=== PATIENT | female | born 1955 | race Caucasian/White ===

== ENCOUNTER 2019-06-29 07:57 | Outpatient (CLI) | payer MEDICARE, SELFPAY ==
--- NOTE | ~2019-06-29 | MR_ITS ---
EXAMINATION: MR lumbar spine wo con DATE: 06/29/2019 08:32 INDICATION: Low back pain. TECHNIQUE: Magnetic resonance imaging (MRI) of the lumbar spine was performed without intravenous con trast. Sequences included sagittal T2-weighted FSE, sagittal T2-weighted FS FSE, sagittal T1-weighted FSE, and axial T2-weighted FSE. COMPARISON: Lumbar spine radiographs 10/02/2017 FINDINGS: There is 11 degrees dextroscoliosis of lumbar spine. There is 2 mm anterolisthesis of L1 on L2 and 3 mm retrolisthesis of L3 on L4. Vertebral body heights are normal. There is moderately decre ased disc height at L1-L2, L2-L3, L3-L4, and L5-S1 and severely decreased disc height at L4-L5. The d istal spinal cord signal intensity is normal. The conus medullaris is at T12-L1. The following disc l evels are specifically discussed: L1-L2: The disc is bulging. There is severe bilateral facet joint osteoarthritis. There is mild bilat eral neural foraminal stenosis. There is mild central canal stenosis. L2-L3: The disc is bulging. There is severe bilateral facet joint osteoarthritis. There is mild bilat eral neural foraminal stenosis. There is mild central canal stenosis. L3-L4: The disc is bulging. There is severe bilateral facet joint osteoarthritis. There is mild right and moderate left neural foraminal stenosis. There is mild central canal stenosis. L4-L5: The disc is bulging. There is severe bilateral facet joint osteoarthritis. There is moderate b ilateral neural foraminal stenosis. There is mild central canal stenosis. L5-S1: The disc is bulging and has an annular fissure. There is severe bilateral facet joint osteoart hritis. There is mild bilateral neural foraminal stenosis. There is mild central canal stenosis. IMPRESSION: 1. Severe lumbar spondylosis. 2. Lumbar dextroscoliosis. Reviewed, dictated and finalized at location A. Y LAB TECHNICIAN
== END 2019-06-29 07:58 ==
LOC: MICIMG 07:57
PROVIDERS: Visit Provider Nurse Practitioner Family
DX: M47.896 Other spondylosis, lumbar region (principal)
CPT/HCPCS: 72148

== ENCOUNTER 2019-09-24 14:19 | Outpatient (CLI) | payer MEDICARE, SELFPAY ==
--- NOTE | ~2019-09-24 | XR_ITS ---
EXAMINATION: XR hip RT min 2V DATE: 09/24/2019 15:03 INDICATION: Right hip pain TECHNIQUE: Two views of the right hip were obtained. COMPARISON: None. FINDINGS: Bone alignment is normal. There is moderate hip osteoarthritis. No fracture is identified. The soft tissues are unremarkable. IMPRESSION: 1. Moderate osteoarthritis. Reviewed, dictated and finalized at location A. IMPRESSION: 1. Moderate osteoarthritis.
== END 2019-09-24 14:20 | disposition home or self-care (01) ==
LOC: ANHIMG 14:33
PROVIDERS: Visit Provider Nurse Practitioner Family
DX: M25.551 Pain in right hip (principal); M16.11 Unilateral primary osteoarthritis, right hip
CPT/HCPCS: 73502

== ENCOUNTER 2019-09-25 07:13 | Outpatient (CLI) | payer MEDICARE, SELFPAY ==
--- NOTE | ~2019-09-25 | XR_ITS ---
XR hip LT min 2V DATE: 09/25/2019 07:36 INDICATION: Left hip pain. No injury. TECHNIQUE: AP and lateral views COMPARISON: None FINDINGS: No fracture or dislocation, avascular necrosis or bone destruction. There is slight spurri ng of the left femoral head. The pubic symphysis and sacroiliac joints appear unremarkable. IMPRESSION: Mild osteoarthritis of left hip Reviewed, dictated and finalized at location A.
== END 2019-09-25 07:14 | disposition home or self-care (01) ==
PROVIDERS: PCP Internal Medicine; Visit Provider Nurse Practitioner Family
DX: M16.12 Unilateral primary osteoarthritis, left hip (principal)
CPT/HCPCS: 73502

== ENCOUNTER 2019-11-05 08:24 | Outpatient (CLI) | payer MEDICARE, SELFPAY ==
[2019-11-05 08:56] LABS: Blood Urea Nitrogen 9 mg/dL (7-17); Calcium 9.7 mg/dL (8.4-10.2); Carbon Dioxide 30 mmol/L (22-30); Chloride 104 mmol/L (98-107); Estimated Glomerular Filt Rate > 60; Glucose 139 mg/dL (65-105); Potassium 3.8 mmol/L (3.4-5.0); Sodium 137 mmol/L (137-145)
== END 2019-11-05 08:25 | disposition home or self-care (01) ==
PROVIDERS: Anesthesiology; PCP Internal Medicine; Visit Provider Surgery Plastic and Reconstructive Surgery
DX: I10 Essential (primary) hypertension (principal)
CPT/HCPCS: 36415; 80048

== ENCOUNTER 2019-11-14 01:38 | Outpatient (CLI) | payer MEDICARE, SELFPAY ==
[2019-11-14 18:09] LABS: SARS-CoV-2 RNA PCR Negative
== END 2019-11-14 01:39 | disposition home or self-care (01) ==
LOC: ANHCOVIDDT 01:38
PROVIDERS: Anesthesiology; PCP Internal Medicine; Visit Provider Surgery Plastic and Reconstructive Surgery
DX: Z01.812 Encounter for preprocedural laboratory examination (principal); Z11.59 Encounter for screening for other viral diseases
CPT/HCPCS: 87635; C9803; U0003

== ENCOUNTER 2019-11-18 15:37 | Inpatient (IN) | payer MEDICARE, SELFPAY ==
[2019-11-03 12:00] VITALS: BMI 37.8
[2019-11-17] VITALS (26 sets, daily range): BP systolic 49–138; BP diastolic 26–96; PULSE 62–97; RESP 10–18; TEMP 36.1–37.1; O2SAT 90–99
--- NOTE | 2019-11-17 06:57 | WPDHPUPDATE1 ---
History and Physical Update Update Date/Time: 11/17/19 06:57 History and Physical has been reviewed, including an updated exam of the patient. She admits that she has had some nicotine and will likely be positive on the test. Again today we spent extensive time discussing the risks of nicotine. This can lead to infections, skin loss, open wounds, need for months and longer of dressing changes and even skin grafts. I was very upfront and honest about this so she was very well informed. She would like to proceed. She says this is functional not cosmetic and she is willing to accept this risk. She understands this procedure even with optimal outcome will not correct all her symptoms. Further this will only address the panniculus which was drawn out and identified for her to make sure it was very clear what we are and are not going to accomplish. Risks, benefits, and alternatives have been discussed and questions answered. Patient agrees to proceed with procedure.
[2019-11-17] MEDS: LACTATED RINGERS 1,000 ML 30 ML IV CONT ×2 (07:05→10:48)
--- NOTE | 2019-11-17 07:29 | WPDANESEPPF ---
Anes - Initial Pre Proc Eval Procedure: Operation Date: 11/17/19 08:30 Proposed Procedures p Panniculectomy - Lucius Garrison MD Date/Time: 11/17/19 07:29 Surgeon: Lucius Garrison MD Pre Op Diagnosis: Panniculitis Patient Data Age: 64 Gender: F Height: 5 ft 8 in Weight: 109.3 kg Allergies Allergy/AdvReac Type Severity Reaction Status Date / Time Penicillins Allergy Mild Swelling Verified 11/17/19 07:09 of Lip/Tongue/Throat metformin AdvReac Severe Nausea and Verified 11/17/19 07:09 Vomiting Home Medications Medication Instructions Recorded Confirmed Type baclofen 10 mg PO TID PRN 11/03/19 11/03/19 History bupropion HCl 100 mg PO BID 11/03/19 11/03/19 History calcitriol 1 mcg PO DAILY 11/03/19 11/03/19 History clonidine HCl 0.1 mg PO DAILY PRN 11/03/19 11/03/19 History duloxetine 120 mg PO DAILY 11/03/19 11/03/19 History ergocalciferol (vitamin D2) 1,250 mcg PO WEEKLY 11/03/19 11/03/19 History [Vitamin D2] fenofibrate nanocrystallized 48 mg PO DAILY 11/03/19 11/03/19 History fluticasone propionate 1 spray INTRANASAL PRN PRN 11/03/19 11/03/19 History folic acid 1 mg PO DAILY 11/03/19 11/03/19 History gabapentin 600 mg PO TID 11/03/19 11/03/19 History hydrocodone-acetaminophen 1 ml PO DAILY PRN 11/03/19 11/03/19 History ixekizumab [Taltz Autoinjector] 80 mg SUBCUT MONTHLY 11/03/19 11/03/19 History lisinopril-hydrochlorothiazide 1 tablet PO DAILY 11/03/19 11/03/19 History lovastatin 20 mg PO HS 11/03/19 11/03/19 History methotrexate sodium 20 mg PO WEEKLY 11/03/19 11/03/19 History mirabegron [Myrbetriq] 50 mg PO DAILY 11/03/19 11/03/19 History nystatin [Nystop] 1 applic TOPICAL BID PRN 11/03/19 11/03/19 History omeprazole 20 mg PO DAILY 11/03/19 11/03/19 History oxycodone myristate [Xtampza ER] 18 mg PO BID 11/03/19 11/03/19 History prednisone 5 mg PO DAILY 11/03/19 11/03/19 History trazodone 200 mg PO DAILY 11/03/19 11/03/19 History ondansetron HCl 4 mg tablet 4 mg PO Q6H PRN #30 tablet 11/04/19 Rx oxycodone-acetaminophen 5 mg-325 1 tablet PO Q6H PRN #15 tablet 11/04/19 11/04/19 Rx mg tablet Laboratory Tests 11/17/19 06:47 Cotinine Pending Patient hx anesthesia problems: none Family hx anesthesia problems: none PMFSH Past Medical History Medical History (Updated 11/17/19 @ 07:29 by Tanner Martines MD) Anxiety COPD (chronic obstructive pulmonary disease) Depression GERD (gastroesophageal reflux disease) Hyperlipidemia Hypertension ERROL (obstructive sleep apnea) Social History Social History Smoking packs per day: 1 Smoking cigarettes per day: 20.0 Years smoked: 31 Smoking pack-years: 31.00 Smoking status: Former smoker Tobacco type: cigarettes Second hand tobacco smoke exposure: No Substance use type: does not use Last use: 2018 Living arrangements: alone Gender identity (if verbalized by the patient): Female Spiritual care concerns: No Anes - Eval Final PreProcedure Day of Procedure 11/17/19 07:29 Patient weight: obese Heart: regular rate and rhythm Lungs: clear to auscultation Airway: Mallampati scale class III Neurological: alert and oriented Last oral intake: >/= 8 hours ASA classification: III Emergent: no Anesthetic plan: proceed Anesthesia type and monitoring: general LMA and standard monitoring Informed Consent: The patient's anesthetic plan and its attendant risks and benefits were discussed with the patient/family/POA. Questions were solicited and answers provided to the satisfaction of the patient/family/POA.
[2019-11-17 07:42] LABS: Urine Cotinine POSITIVE
[2019-11-17] MEDS: CLINDAMYCIN 900 MG/NS 50 ML 900 MG/50 ML PIGGYBACK 50 MG IVPB (08:36)
--- NOTE | 2019-11-17 10:52 | P.OP_ITS ---
Procedure Note - Detailed Date of procedure: 11/17/19 Pre-op diagnosis: Panniculitis Post-op diagnosis: same Description of procedure: Patient was marked in the preoperative holding area with her verification. She admitted she has had some nicotine exposure. We had a lengthy open-ended conversation making sure she was very realistic about the risks involved as well as expectations. These were outlined in great detail making sure she made a well-informed decision. She is willing to accept the risks of nicotine (after outlining extensivly). All questions answered and consent obtained. She was taken to the operating room placed supine on operating room table. Anesthesia provided by anesthesiology. A Craft catheter was started. Prepped and draped in a standard sterile fashion. Surgical time-out was taken. I made stab incisions on the abdomen after doing a thorough abdominal examination. I tumesced with approximately 1.2 L of a tumescent solution. Ten blade used to make the lower incision followed by upper. I continued a V excision fashion until the fascia was identified. There was no undermining. At the central just above the suprapubic region I did see some tape likely from the bladder suspension and this was left in place. I copiously irrigated with saline solution and verified strict hemostasis. Again there was no undermining of flaps at all. I closed in many layers to obliterate all space using a 2-[address] did [address] 15 Maury drains bilatera l which were sutured into place with 3-0 nylon through the lateral aspect of the incision. It continue to close with 2-0 PDS followed by running 3-0 strata fix and alex. Dressings were placed. Patient was woken taken the PACU without difficulty. All instrument sponge counts were correct at the end of the case. Anesthesia: GLMA Surgeon: Lucius Garrison MD Estimated blood loss (mL): 50 Drains: Yes (Bilateral 15 maury) Packing: No Pathology: none sent Complications: No immediate complications Condition: stable Disposition: PACU
[2019-11-17] MEDS: LACTATED RINGERS 1,000 ML 125 ML IV CONT ×2 (12:33→19:30)
[2019-11-17] MEDS: MORPHINE SULFATE 2 MG/ML INJ IV PUSH ×3 (12:35→19:27)
[2019-11-17] MEDS: GABAPENTIN 300 MG CAPSULE 600 MG PO ×2 (14:53→22:21)
--- NOTE | 2019-11-17 15:24 | OBPPTRN ---
Patient transferred to room #285 via bed. Oriented to unit, room, information board, admission packet and security measures. Patient verbalizes understanding.
[2019-11-17] MEDS: ONDANSETRON INJ 4 MG/2 ML VIAL IV PUSH (16:17)
[2019-11-17] MEDS: oxyCODONE/ACETAMINOPHEN 5-325 MG TABLET 1 TABLET PO (20:36)
[2019-11-17] MEDS: DOCUSATE SODIUM 100 MG CAPSULE PO (22:21)
[2019-11-17] MEDS: BACLOFEN 10 MG TABLET PO (22:21)
--- NOTE | 2019-11-17 23:40 | ECG_ITS ---
Measurements Intervals [place] Rate: 67 P: 87 [place]: 137 QRS: 0 QRSD: 102 T: 29 QT: 402 QTc: 427 Interpretive Statements SINUS RHYTHM ST ELEVATION IN DIFFUSE LEADS- PROBABLY EARLY REPOLARIZATION BASELINE WANDER- I, II, III, V1-V2 BORDERLINE ECG Electronically Signed On 11-18-2019 6:48:33 CDT by Sancho Sarmiento D.O.
[2019-11-17 23:45] LABS: Glucose Point of Care 184 (65-105)
[2019-11-18] VITALS (21 sets, daily range): BP systolic 66–116; BP diastolic 30–54; PULSE 20–81; RESP 16–20; TEMP 36.2–37.4; O2SAT 90–100
--- NOTE | ~2019-11-18 | US_ITS ---
US venous doppler LE RT DATE: 11/19/2019 09:41 INDICATION: Right calf tenderness, positive Homans sign postoperatively TECHNIQUE: Real-time and color flow imaging and Doppler analysis of the veins of the right lower extr emity COMPARISON: None FINDINGS: The greater saphenous vein is patent. There is spontaneous and phasic flow and normal augmentation and color flow signal and normal josesito claudia of the deep veins of the right lower extremity. IMPRESSION: Negative examination; no evidence of deep venous thrombosis. Reviewed, dictated and finalized at [facility] Reviewed, dictated and finalized at [facility].
[2019-11-18 00:06] LABS: Basophils Absolute Auto 0.1 K/mm3 (0.0-0.1); Basophils Percent Auto 0.3 % (0.2-1.2); Hematocrit 29.6 % (37.0-47.0); Hemoglobin 9.7 g/dL (12.0-15.0); Immature Granulocyte Absolute 0.09 K/mm3 (0.00-0.031); Immature Granulocyte Percent A 0.5 % (0-0.5); Lymphocytes Absolute Auto 1.93 K/mm3 (0.9-3.2); Lymphocytes Percent Auto 10.3 % (18.3-44.2); Mean Corpuscular HGB Conc 32.8 g/dl (32-36); Mean Corpuscular Hemoglobin 31.4 pg (26-34); Mean Corpuscular Volume 95.8 fl (80-100); Mean Platelet Volume 11.9 fl (7.4-10.4); Monocytes Absolute Auto 1.6 K/mm3 (0.1-0.6); Monocytes Percent Auto 8.5 % (2.6-8.5); Neutrophils Percent Auto 80.4 % (45.5-73.1); Platelet Count Result 177 k/mm3 (150-375); Red Blood Count 3.09 M/mm3 (4.2-5.4); Red Cell Distribution Width 14.6 % (11.5-14.5); White Blood Count 18.7 K/mm3 (4.5-10.0)
--- NOTE | 2019-11-18 00:09 | WPDPN ---
Progress Note: A&P Assessment and Plan (1) Panniculitis: Code(s): M79.3 - Panniculitis, unspecified Status: Acute Assessment and Plan: Her mental status is very good and she is completely asymptomatic. 1 litter bolus complete, will continue fluids. Hemoglobin appears to be stable. EKG normal. I see no evidence of active bleeding or hematoma. No evidence of cardiovascular event. Will continue to monitor closely. Hospitalist is consulted and has already seen, appreciate assistance. We will follow closely. (2) History of tobacco use: Code(s): Z87.891 - Personal history of nicotine dependence Status: Acute Assessment and Plan: We continue to discuss nicotine cessation. (3) History of gastric bypass: Code(s): Z98.84 - Bariatric surgery status Status: Acute (4) Umbilical hernia: Code(s): K42.9 - Umbilical hernia without obstruction or gangrene Status: Acute Assessment and Plan: Identified on CT scan. Asymptomatic. (5) History of bilateral breast reduction surgery: Code(s): Z98.890 - Other specified postprocedural states Status: Acute (6) Type 2 diabetes mellitus: Code(s): E11.9 - Type 2 diabetes mellitus without complications Status: Acute Assessment and Plan: She does have a history of a nuclear stress test on 06/19/2019. Normal. EF 66%. (7) Psoriasis: Code(s): L40.9 - Psoriasis, unspecified Status: Acute (8) Thrombocytopenia: Code(s): D69.6 - Thrombocytopenia, unspecified Status: Acute Assessment and Plan: She has a history of thrombocytopenia. (9) Elevated LFTs: Code(s): R79.89 - Other specified abnormal findings of blood chemistry Status: Acute Assessment and Plan: History of elevated LFTs. (10) History of bladder repair surgery: Code(s): Z98.890 - Other specified postprocedural states Status: Acute (11) ERROL (obstructive sleep apnea): Code(s): G47.33 - Obstructive sleep apnea (adult) (pediatric) Status: Acute (12) Depression: Code(s): F32.9 - Major depressive disorder, single episode, unspecified Status: Acute (13) GERD (gastroesophageal reflux disease): Code(s): K21.9 - Gastro-esophageal reflux disease without esophagitis Status: Acute (14) COPD (chronic obstructive pulmonary disease): Code(s): J44.9 - Chronic obstructive pulmonary disease, unspecified Status: Acute (15) Anxiety: Code(s): F41.9 - Anxiety disorder, unspecified Status: Acute (16) Hypertension: Code(s): I10 - Essential (primary) hypertension Status: Acute (17) Hyperlipidemia: Code(s): E78.5 - Hyperlipidemia, unspecified Status: Acute Review of Systems Review of Systems: All systems reviewed & are unremarkable except as noted in HPI and below Exam Narrative: Exam Narrative: Abdomen soft. There is no signs of infection. No hematoma. No seroma. Drains are still red although low output. Urine appears slightly dark. Const: General: no acute distress Other: Response to questions well. Has no complaints other than some right-sided incisional mild discomfort. Eyes: General: appearance normal, both eyes and all related structures Resp: Effort & Inspection: normal respiratory effort Cardio: Rate: regular rate Skin: General skin exam: normal color Neuro: Cognition (Neuro): normal cognition Other: Alert and oriented. Answering questions appropriately. Extrem: Other: No calf tenderness. Negative Homans. Psych: Mental Status: mental status grossly normal Objective Data Vital Signs Vital Signs: Vital Signs - 24 hr 11/17/19 10:50 11/17/19 11:05 11/17/19 11:20 Temperature 37.1 C Pulse Rate 76 76 80 Respiratory Rate 10 L 16 16 Blood Pressure 129/68 138/76 110/54 L Pulse Oximetry 94 95 94 11/17/19 11:35 11/17/19 12:15 11/17/19 12:30 Temperature 36.8 C
[2019-11-18 00:16] LABS: Alanine Aminotransferase 15 U/L (4-35); Albumin Level 2.6 g/dL (3.5-5.1); Alkaline Phosphatase 67 U/L (38-126); Aspartate Amino Transferase 17 U/L (14-36); Bilirubin,Total 0.5 mg/dL (0.2-1.3); Blood Urea Nitrogen 17 mg/dL (7-17); Calcium 9.2 mg/dL (8.4-10.2); Carbon Dioxide 28 mmol/L (22-30); Chloride 101 mmol/L (98-107); Estimated CRCL calculation 56 ml/min; Estimated Glomerular Filt Rate 46; Glucose 186 mg/dL (65-105); Potassium 4.3 mmol/L (3.4-5.0); Sodium 133 mmol/L (137-145)
--- NOTE | 2019-11-18 01:01 | PM.IMCN ---
Assessment and Plan Assessment and plan (1) Hypotension: Qualifiers: Hypotension type: hypotension due to hypovolemia Qualified Code(s): I95.89 - Other hypotension; E86.1 - Hypovolemia Code(s): I95.9 - Hypotension, unspecified Status: Acute Assessment and Plan: Postprocedural and or hypovolemic in nature. Patient is now on her 2nd L of normal saline bolus. Her blood pressures have improved to 104/45. I agree with continuing maintenance IV fluids. Will hold narcotics if patient's blood pressures are below 95 systolic Would recommend holding patient's home lisinopril and hydrochlorothiazide especially in the setting of acute renal injury. (2) Acute renal injury due to hypovolemia: Code(s): N17.9 - Acute kidney failure, unspecified; E86.1 - Hypovolemia Status: Acute Assessment and Plan: Will continue monitor urine output closely. Repeat BMP in a.m.. Recommend holding lisinopril and hydrochlorothiazide. (3) Type 2 diabetes mellitus: Qualifiers: Diabetes mellitus nursing home insulin use: without nursing home use Diabetes mellitus complication status: with hyperglycemia Qualified Code(s): E11.65 - Type 2 diabetes mellitus with hyperglycemia Code(s): E11.9 - Type 2 diabetes mellitus without complications Status: Acute Assessment and Plan: Moderate sliding scale insulin with Accu-Cheks a.c. HS and hypoglycemia protocol have been ordered. (4) ERROL (obstructive sleep apnea): Code(s): G47.33 - Obstructive sleep apnea (adult) (pediatric) Status: Acute Assessment and Plan: Resume CPAP once the patient'sblood pressures have stabilized. (5) Leukocytosis: Qualifiers: Leukocytosis type: leukemoid reaction Qualified Code(s): D72.823 - Leukemoid reaction Code(s): D72.829 - Elevated white blood cell count, unspecified Status: Acute Assessment and Plan: Likely due to stress reaction/leukemoid reaction from acute postoperative and hypovolemic stresses. Acute infectious process less likely. Repeat CBC in a.m.. Additional Plan 50 minutes spent in critical care activities. This case had a high probability of a clinically significant, sudden, or life threatening deterioration of this patient's condition which required my full and direct attention, intervention and personal management. HPI Data of Consult Consult date: 11/18/19 Requesting Physician: Lucius Garrison MD Primary Care Provider: Jacki Cabrera, Consult Narrative Narrative: Date and time of patient contact: 11/17/2019 at 11:30 p.m. Karolina Ramos is a 64 year old female with a past medical history of type 2 diabetes mellitus, hypertension, chronic pain morbid obesity status post gastric bypass surgery in 120 lb weight loss who was brought in for an elective panniculectomy. Patient underwent surgical procedure on 11/17/2019. Postoperatively the patient has been having intermittent hypotension. Just before my evaluation nursing staff called and requested consult as the patient's blood pressures had dropped to the mid 40s systolic. However the patient was still awake and conversant. The patient was not on IV fluids. Patient had a relatively low postop urine output. She had not been having any nausea or vomiting and had been eating without difficulty. Around 9:00 p.m. she received oxycodone and morphine when her blood pressures had improved back up to 90 systolic. With her next set of vitals the patient's systolic blood pressures were 65 systolic and 49 systolic. She was not tachycardic. She denies shortness of breath. She does have history of obstructive sleep apnea but only uses her CPAP intermittently. She denies any chest pain, palpitations or shortness of breath. She has not been having any lower extremity swelling. Patient was reporting moderate to severe pain in her abdomen and was requesting pain medications. Th
[2019-11-18 01:05] LABS: Lactic Acid Reflex 2.4 mmol/L (0.7-2.1)
--- NOTE | 2019-11-18 01:30 | PC.NURSE ---
This patient, Karolina Ramos, was received from [ second floor ob] on 11/18/19 at 0015. Personal belongings list checked and signed. Patient/family oriented to unit policies and routines
--- NOTE | 2019-11-18 01:47 | PC.NURSE ---
11/17/192239 Exchange called 2299 Spoke with Bhavani, Dr Childress's WO[employer] GRADER, relayed Blood pressures and patient status. She states she will call Dr. Childress [address] Childress, relayed information. Order recieved to consult hospitalist due to pt's underlying medical conditions. [address] Najera, internalist, received order for IV bolus, CBC, BMP, 12 lead EKG 2335 Rapid response called overhead IV open,O2 via mask @ 10L 2337 Rapid response team in room. Spoke with Dr. Childress on cell, informed of pt condition and rapid response called. 2340 Dr. Najera in room. Blood sugar 154. 2348 Dr. Childress in room 2352 Dr. Najera left room 11/18/19 0009 Pt transferred via bed to room 205. Report called to Taylor Bellamy RN.
[2019-11-18] MEDS: LACTATED RINGERS 1,000 ML 125 ML IV CONT ×3 (01:51→17:42)
[2019-11-18] MEDS: oxyCODONE/ACETAMINOPHEN 5-325 MG TABLET 1 TABLET PO ×4 (01:52→23:46)
[2019-11-18 03:29] LABS: Reflex Lactic Acid Yes or No Add Lactic
[2019-11-18] MEDS: GABAPENTIN 300 MG CAPSULE 600 MG PO ×3 (05:04→20:56)
[2019-11-18 06:59] LABS: Hematocrit 26.7 % (37.0-47.0); Hemoglobin 8.7 g/dL (12.0-15.0); Mean Corpuscular HGB Conc 32.6 g/dl (32-36); Mean Corpuscular Hemoglobin 31.6 pg (26-34); Mean Corpuscular Volume 97.1 fl (80-100); Mean Platelet Volume 12.2 fl (7.4-10.4); Platelet Count Result 136 k/mm3 (150-375); Red Blood Count 2.75 M/mm3 (4.2-5.4); Red Cell Distribution Width 14.7 % (11.5-14.5); White Blood Count 10.6 K/mm3 (4.5-10.0)
[2019-11-18 07:08] LABS: Blood Urea Nitrogen 19 mg/dL (7-17); Carbon Dioxide 27 mmol/L (22-30); Chloride 101 mmol/L (98-107); Estimated CRCL calculation 67 ml/min; Estimated Glomerular Filt Rate 56; Glucose 106 mg/dL (65-105); Lactic Acid 1.5 mmol/L (0.7-2.1); Potassium 3.9 mmol/L (3.4-5.0); Sodium 132 mmol/L (137-145)
--- NOTE | 2019-11-18 07:18 | WPDPN ---
Progress Note: A&P Assessment and Plan (1) Panniculitis: Code(s): M79.3 - Panniculitis, unspecified Status: Acute Assessment and Plan: Doing well this morning. If she continues to do well will plan for discharge home later today or tomorrow once: Ambulating Pain controlled Blood pressure stable Tolerating p.o. Hospitalist agrees Appreciate hospitalist assistance. (2) History of tobacco use: Code(s): Z87.891 - Personal history of nicotine dependence Status: Inactive Assessment and Plan: We continue to discuss nicotine cessation. (3) History of gastric bypass: Code(s): Z98.84 - Bariatric surgery status Status: Acute (4) Umbilical hernia: Code(s): K42.9 - Umbilical hernia without obstruction or gangrene Status: Acute Assessment and Plan: Identified on CT scan. Asymptomatic. (5) History of bilateral breast reduction surgery: Code(s): Z98.890 - Other specified postprocedural states Status: Inactive (6) Type 2 diabetes mellitus: Qualifiers: Diabetes mellitus retirement insulin use: without retirement use Diabetes mellitus complication status: with hyperglycemia Qualified Code(s): E11.65 - Type 2 diabetes mellitus with hyperglycemia Code(s): E11.9 - Type 2 diabetes mellitus without complications Status: Acute Assessment and Plan: She does have a history of a nuclear stress test on 06/19/2019. Normal. EF 66%. (7) Psoriasis: Code(s): L40.9 - Psoriasis, unspecified Status: Inactive (8) Thrombocytopenia: Code(s): D69.6 - Thrombocytopenia, unspecified Status: Acute Assessment and Plan: She has a history of thrombocytopenia. (9) Elevated LFTs: Code(s): R79.89 - Other specified abnormal findings of blood chemistry Status: Acute Assessment and Plan: History of elevated LFTs. (10) History of bladder repair surgery: Code(s): Z98.890 - Other specified postprocedural states Status: Inactive (11) ERROL (obstructive sleep apnea): Code(s): G47.33 - Obstructive sleep apnea (adult) (pediatric) Status: Acute (12) Depression: Code(s): F32.9 - Major depressive disorder, single episode, unspecified Status: Inactive (13) GERD (gastroesophageal reflux disease): Code(s): K21.9 - Gastro-esophageal reflux disease without esophagitis Status: Acute (14) COPD (chronic obstructive pulmonary disease): Code(s): J44.9 - Chronic obstructive pulmonary disease, unspecified Status: Acute (15) Anxiety: Code(s): F41.9 - Anxiety disorder, unspecified Status: Acute (16) Hypertension: Code(s): I10 - Essential (primary) hypertension Status: Acute (17) Hyperlipidemia: Code(s): E78.5 - Hyperlipidemia, unspecified Status: Acute Review of Systems Review of Systems: All systems reviewed & are unremarkable except as noted in HPI and below Exam Narrative: Exam Narrative: Abdomen soft. There is no signs of infection. No hematoma. No seroma. Drains are becoming serosanguineous. Urine is becoming more clear. Const: General: comfortable, no acute distress, alert and awake; No acute distress Orientation/consciousness: oriented to person HENMT: Head: normal to inspection Ears: external ears normal General nose exam: Normal external nose present Face and sinus: normal facial exam Eyes: General: appearance normal, both eyes and all related structures Periorbital: periorbital findings normal Eyelids: eyelids normal Conjunctivae: conjunctivae normal Neck: Neck: normal visual inspection Chest: Chest palpation & inspection: normal inspection of the chest Resp: Effort & Inspection: normal respiratory effort and able to speak in complete sentences GI: Inspection: normal to inspection Neuro: General: oriented to person Psych: Appearance: grossly normal Mental Status: menta
--- NOTE | 2019-11-18 07:54 | WPDANESPN ---
Anes - Prog Note Post-Op Date/Time: 11/18/19 07:54 Cardiovascular status: normal Respiratory status: normal Airway patency: baseline Mental status: baseline Post-Op hydration status: normal Vital Signs: Last Vital Signs Temp 36.8 C 11/18/19 04:00 Pulse 67 11/18/19 05:36 Resp 20 11/18/19 04:00 BP 97/48 L 11/18/19 04:00 Pulse Ox 100 11/18/19 04:00 I/O: Intake & Output 11/17/19 11/17/19 11/18/19 15:59 23:59 07:59 Intake Total 200 1600 1000 Output Total 75 1025 70 Balance 125 575 930 Laboratory Tests 11/18/19 06:33 11/18/19 06:33 11/17/19 11/17/19 11/17/19 23:43 23:44 23:44 WBC RBC Hgb Hct MCV MCH MCHC RDW Plt Count MPV Immature Gran % (Auto) Neut % (Auto) Lymph % (Auto) Caroline % (Auto) Eos % (Auto) Baso % (Auto) Lymph # (Auto) Caroline # (Auto) Eos # (Auto) Baso # (Auto) Abs Immat Gran (auto) Absolute Neuts (auto) Absolute Nucleated RBC Nucleated RBC % PT Pending INR Pending APTT Pending Sodium 133 L Potassium 4.3 Chloride 101 Carbon Dioxide 28 BUN 17 Creatinine 1.20 H Estim Creat Clear Calc 56 Estimated GFR 46 L Glucose 186 H POC Capillary Glucose 184 H Lactic Acid Calcium 9.2 Total Bilirubin 0.5 AST 17 ALT 15 Alkaline Phosphatase 67 Total Protein 5.0 L Albumin 2.6 L Blood Type Antibody Screen 11/17/19 11/18/19 11/18/19 23:44 00:22 00:22 WBC 18.7 H RBC 3.09 L Hgb 9.7 L Hct 29.6 L MCV 95.8 MCH 31.4 MCHC 32.8 RDW 14.6 H Plt Count 177 MPV 11.9 H Immature Gran % (Auto) 0.5 Neut % (Auto) 80.4 H Lymph % (Auto) 10.3 L Caroline % (Auto) 8.5 Eos % (Auto) 0.0 Baso % (Auto) 0.3 Lymph # (Auto) 1.93 Caroline # (Auto) 1.6 H Eos # (Auto) 0.0 Baso # (Auto) 0.1 Abs Immat Gran (auto) 0.09 H Absolute Neuts (auto) 15.0 H Absolute Nucleated RBC 0.0 Nucleated RBC % 0.0 PT INR APTT Sodium Potassium Chloride Carbon Dioxide BUN Creatinine Estim Creat Clear Calc Estimated GFR Glucose POC Capillary Glucose Lactic Acid 2.4 H Calcium Total Bilirubin AST ALT Alkaline Phosphatase Total Protein Albumin Blood Type O Positive Antibody Screen Negative 11/18/19 11/18/19 11/18/19 06:33 06:33 06:33 WBC 10.6 H RBC 2.75 L Hgb 8.7 L Hct 26.7 L MCV 97.1 MCH 31.6 MCHC 32.6 RDW 14.7 H Plt Count 136 L MPV 12.2 H Immature Gran % (Auto) Neut % (Auto) Lymph % (Auto) Caroline % (Auto) Eos % (Auto) Baso % (Auto) Lymph # (Auto) Caroline # (Auto) Eos # (Auto) Baso # (Auto) Abs Immat Gran (auto) Absolute Neuts (auto) Absolute Nucleated RBC Nucleated RBC % PT INR APTT Sodium 132 L Potassium 3.9 Chloride 101 Carbon Dioxide 27 BUN 19 H Creatinine 1.00 Estim Creat Clear Calc 67 Estimated GFR 56 L Glucose 106 H POC Capillary Glucose Lactic Acid 1.5 Calcium 9.0 Total Bilirubin AST ALT Alkaline Phosphatase Total Protein Albumin Blood Type Antibody Screen Post-procedural complaints: none Patient Feedback: Patient satisfied with anesthetic care.
[2019-11-18 08:25] LABS: Glucose Point of Care 96 (65-105)
[2019-11-18] MEDS: predniSONE 5 MG TABLET PO (08:43)
[2019-11-18] MEDS: buPROPion HCL SR (12HR) 100 MG TABCR PO ×2 (08:43→20:58)
[2019-11-18] MEDS: MIRABEGRON 50 MG ER TABLET PO (08:44)
[2019-11-18] MEDS: calcitrioL 0.25 MCG CAPSULE 1 MCG PO (08:44)
[2019-11-18] MEDS: DULoxetine HCL 60 MG CAPSULE.DR 120 MG PO (08:45)
[2019-11-18] MEDS: DOCUSATE SODIUM 100 MG CAPSULE PO ×2 (11:12→20:55)
[2019-11-18] MEDS: ENOXAPARIN 40 MG/0.4 ML SYRINGE SUB-Q (11:12)
[2019-11-18 12:26] LABS: Glucose Point of Care 113 (65-105)
--- NOTE | 2019-11-18 13:01 | PM.IMPN ---
Progress Note: A&P Assessment and Plan (1) Hypotension: Qualifiers: Hypotension type: hypotension due to hypovolemia Qualified Code(s): I95.89 - Other hypotension; E86.1 - Hypovolemia Code(s): I95.9 - Hypotension, unspecified Status: Acute Assessment and Plan: Postprocedural and or hypovolemic in nature. Patient is now on her 2nd L of normal saline bolus. Her blood pressures have improved but still in the low side, she is asymptomatic. I agree with continuing maintenance IV fluids. Will hold narcotics if patient's blood pressures are below 95 systolic Would recommend holding patient's home lisinopril and hydrochlorothiazide especially in the setting of acute renal injury. (2) Acute renal injury due to hypovolemia: Code(s): N17.9 - Acute kidney failure, unspecified; E86.1 - Hypovolemia Status: Acute Assessment and Plan: Likely related to the hypotension and renal hypoperfusion. Will continue monitor urine output closely. Repeat BMP in a.m.. Recommend holding lisinopril and hydrochlorothiazide. (3) Type 2 diabetes mellitus: Qualifiers: Diabetes mellitus terminal system operator insulin use: without fpc use Diabetes mellitus complication status: with hyperglycemia Qualified Code(s): E11.65 - Type 2 diabetes mellitus with hyperglycemia Code(s): E11.9 - Type 2 diabetes mellitus without complications Status: Acute Assessment and Plan: Moderate sliding scale insulin with Accu-Cheks a.c. HS and hypoglycemia protocol have been ordered. (4) ERROL (obstructive sleep apnea): Code(s): G47.33 - Obstructive sleep apnea (adult) (pediatric) Status: Acute Assessment and Plan: Resume CPAP once the patient'sblood pressures have stabilized. (5) Leukocytosis: Qualifiers: Leukocytosis type: leukemoid reaction Qualified Code(s): D72.823 - Leukemoid reaction Code(s): D72.829 - Elevated white blood cell count, unspecified Status: Acute Assessment and Plan: Likely due to stress reaction/leukemoid reaction from acute postoperative and hypovolemic stresses. Acute infectious process less likely. Repeat CBC in a.m.. Subjective Date/time seen: No new complains, she denies chest pain or dizziness. 11/18/19 13:01 Review of Systems Review of Systems: All systems reviewed & are unremarkable except as noted in HPI and below Exam Const: General: comfortable and no acute distress Neck: Neck: supple and no JVD Resp: Effort & Inspection: normal respiratory effort Auscultation: clear to auscultation bilaterally Cardio: Rate: regular rate Rhythm: regular rhythm Other: No tachycardia or bradycardia. GI: Auscultation: normal bowel sounds Other: Covered by surgical dressings, no guarding, mild tenderness. Neuro: Speech: normal speech Motor exam (neuro): Normal motor muscle tone present throughout Sensory Exam: normal sensation Psych: Affect: normal affect Objective Data Vital Signs Vital Signs: Vital Signs - 24 hr 11/17/19 14:00 11/17/19 15:00 11/17/19 16:00 Temperature 97.0 F L Pulse Rate 65 72 88 Respiratory Rate 16 16 18 Blood Pressure 121/75 118/76 79/48 L Pulse Oximetry 97 97 98 11/17/19 16:17 11/17/19 16:25 11/17/19 17:05 Temperature Pulse Rate 83 Respiratory Rate Blood Pressure 65/40 L 70/40 L 77/47 L Pulse Oximetry 95 11/17/19 20:00 11/17/19 21:00 11/17/19 22:15 Temperature 98.1 F Pulse Rate 73 68 72 Respiratory Rate 18 18 18 Blood Pressure 91/54 L 93/48 L 65/40 L Pulse Oximetry 98 98 11/17/19 23:15 11/17/19 23:26 11/17/19 23:35 Temperature Pulse Rate 62 Respiratory Rate 18 Blood Pressure 62/37 L 49/26 L 70/43 L Pulse Oximetry 95 11/17/19 23:38 11/17/19 23:40 11/17/19 23:45 Temperature Pulse Rate 65 Respiratory Rate Blood Pressure 114/96 H 98/74 L 64/39 L Pulse Oximetry 99 11/17/19 23:51 11/17/19 23:53 11/17/19
[2019-11-18 16:40] LABS: Glucose Point of Care 108 (65-105)
[2019-11-18 20:26] LABS: Glucose Point of Care 106 (65-105)
[2019-11-18] MEDS: LOVASTATIN 20 MG TABLET PO (20:55)
[2019-11-18] MEDS: traZODone HCL 50 MG TABLET 200 MG PO (20:56)
[2019-11-18] MEDS: PANTOPRAZOLE 40 MG TABLET PO (20:56)
[2019-11-19] VITALS (12 sets, daily range): BP systolic 114–129; BP diastolic 54–88; PULSE 78–97; RESP 18–26; TEMP 36.6–37.7; O2SAT 94–100
[2019-11-19] MEDS: LACTATED RINGERS 1,000 ML 125 ML IV CONT ×2 (01:32→11:00)
[2019-11-19 04:52] LABS: Basophils Percent Auto 0.3 % (0.2-1.2); Eosinophils Absolute Auto 0.1 K/mm3 (0-0.3); Hematocrit 22.4 % (37.0-47.0); Hemoglobin 7.3 g/dL (12.0-15.0); Immature Granulocyte Absolute 0.03 K/mm3 (0.00-0.031); Immature Granulocyte Percent A 0.4 % (0-0.5); Lymphocytes Percent Auto 27.5 % (18.3-44.2); Mean Corpuscular HGB Conc 32.6 g/dl (32-36); Mean Corpuscular Hemoglobin 31.7 pg (26-34); Mean Corpuscular Volume 97.4 fl (80-100); Mean Platelet Volume 11.9 fl (7.4-10.4); Neutrophils Absolute Auto 4.4 K/mm3 (1.3-6.7); Neutrophils Percent Auto 57.8 % (45.5-73.1); Platelet Count Result 112 k/mm3 (150-375); Red Cell Distribution Width 14.6 % (11.5-14.5); White Blood Count 7.6 K/mm3 (4.5-10.0)
[2019-11-19 05:15] LABS: Blood Urea Nitrogen 13 mg/dL (7-17); Calcium 9.1 mg/dL (8.4-10.2); Carbon Dioxide 32 mmol/L (22-30); Chloride 106 mmol/L (98-107); Estimated CRCL calculation 107 ml/min; Estimated Glomerular Filt Rate > 60; Glucose 100 mg/dL (65-105); Sodium 138 mmol/L (137-145)
[2019-11-19] MEDS: GABAPENTIN 300 MG CAPSULE 600 MG PO ×3 (05:36→21:53)
--- NOTE | 2019-11-19 07:24 | WPDPN ---
Progress Note: A&P Assessment and Plan (1) Panniculitis: Code(s): M79.3 - Panniculitis, unspecified Status: Acute Assessment and Plan: Doing well this AM. Drain outputs decreasing. No evidence of active bleeding. Ambulating Pain controlled Blood pressure stable h/h low although asymptomatic and no evidence of active bleeding. Tolerating p.o. D/C whiteside F/U ultrasound as below. (2) Tenderness of right calf: Code(s): M79.661 - Pain in right lower leg Status: Acute Assessment and Plan: This is new today. Will check ultrasound. (3) Low hemoglobin: Code(s): D64.9 - Anemia, unspecified Status: Acute Assessment and Plan: Monitor. Completely asymptomatic. (4) Acute renal injury due to hypovolemia: Code(s): N17.9 - Acute kidney failure, unspecified; E86.1 - Hypovolemia Status: Acute (5) Type 2 diabetes mellitus: Qualifiers: Diabetes mellitus long term care pharmacist insulin use: without long term care pharmacist use Diabetes mellitus complication status: with hyperglycemia Qualified Code(s): E11.65 - Type 2 diabetes mellitus with hyperglycemia Code(s): E11.9 - Type 2 diabetes mellitus without complications Status: Acute Assessment and Plan: She does have a history of a nuclear stress test on 06/19/2019. Normal. EF 66%. (6) ERROL (obstructive sleep apnea): Code(s): G47.33 - Obstructive sleep apnea (adult) (pediatric) Status: Acute (7) Leukocytosis: Qualifiers: Leukocytosis type: leukemoid reaction Qualified Code(s): D72.823 - Leukemoid reaction Code(s): D72.829 - Elevated white blood cell count, unspecified Status: Acute (8) Hypertension: Code(s): I10 - Essential (primary) hypertension Status: Acute (9) Hyperlipidemia: Code(s): E78.5 - Hyperlipidemia, unspecified Status: Acute (10) Umbilical hernia: Code(s): K42.9 - Umbilical hernia without obstruction or gangrene Status: Acute Assessment and Plan: Noted on CT Scan (11) History of gastric bypass: Code(s): Z98.84 - Bariatric surgery status Status: Acute Review of Systems Review of Systems: All systems reviewed & are unremarkable except as noted in HPI and below Integumentary/Breasts: Comments: Right calf tenderness Exam Narrative: Exam Narrative: Abdomen soft. There is no signs of infection. No hematoma. No seroma. drains are transition is serosanguineous. SCDs in place. She has right calf tenderness with positive Homans. Const: General: no acute distress Other: Response to questions well. Has no complaints other than some right-sided incisional mild discomfort. Eyes: General: appearance normal, both eyes and all related structures Resp: Effort & Inspection: normal respiratory effort Cardio: Rate: regular rate Skin: General skin exam: normal color Neuro: Cognition (Neuro): normal cognition Other: Alert and oriented. Answering questions appropriately. Extrem: Other: No calf tenderness. Negative Homans. Psych: Mental Status: mental status grossly normal Objective Data Vital Signs Vital Signs: Vital Signs - 24 hr 11/18/19 08:00 11/18/19 10:00 11/18/19 10:31 Temperature 36.2 C L Pulse Rate 67 76 Respiratory Rate 18 Blood Pressure 100/44 L Pulse Oximetry 100 95 11/18/19 12:00 11/18/19 14:00 11/18/19 16:00 Temperature 36.6 C 36.6 C Pulse Rate 74 81 74 Respiratory Rate 16 18 Blood Pressure 97/44 L 108/51 L Pulse Oximetry 99 100 11/18/19 18:00 11/18/19 19:38 11/18/19 20:00 Temperature 37.4 C Pulse Rate 78 78 81 Respiratory Rate 18 Blood Pressure 107/53 L Pulse Oximetry 98 11/18/19 21:26 11/18/19 23:49 11/19/19 00:00 Temperature 37.2 C Pulse Rate 81 20 L 79 Respiratory Rate 18 Blood Pressure 116/54 L Pulse Oximetry 97 11/19/19 02:00 11/19/19 04:00 11/19/19 05:36 Temperature 37.6 C Pulse Rate 83 83
[2019-11-19 08:10] LABS: Glucose Point of Care 100 (65-105)
[2019-11-19] MEDS: calcitrioL 0.25 MCG CAPSULE 1 MCG PO (08:58)
[2019-11-19] MEDS: predniSONE 5 MG TABLET PO (08:58)
[2019-11-19] MEDS: buPROPion HCL SR (12HR) 100 MG TABCR PO ×2 (08:58→21:53)
[2019-11-19] MEDS: DULoxetine HCL 60 MG CAPSULE.DR 120 MG PO (08:59)
[2019-11-19] MEDS: MIRABEGRON 50 MG ER TABLET PO (08:59)
[2019-11-19] MEDS: ENOXAPARIN 40 MG/0.4 ML SYRINGE SUB-Q (08:59)
[2019-11-19] MEDS: DOCUSATE SODIUM 100 MG CAPSULE PO ×2 (09:00→21:52)
--- NOTE | 2019-11-19 11:44 | WPDPN ---
Progress Note: A&P Assessment and Plan (1) Panniculitis: Code(s): M79.3 - Panniculitis, unspecified Status: Acute Assessment and Plan: Appears to have broken a suture when standing. Some bleeding that has stopped. Feels well (asymptomatic) other than typical post-op disocmfort. Will monitor. Will try and stand again later today. Plan for d/c later today or tomorrow. Ambulating Pain controlled Blood pressure stable h/h low although asymptomatic and no evidence of active bleeding. Tolerating p.o. D/C whiteside when ambulating. (2) Tenderness of right calf: Code(s): M79.661 - Pain in right lower leg Status: Acute Assessment and Plan: RLE ultrasound negative. (3) Low hemoglobin: Code(s): D64.9 - Anemia, unspecified Status: Acute Assessment and Plan: Monitor. Completely asymptomatic. (4) Acute renal injury due to hypovolemia: Code(s): N17.9 - Acute kidney failure, unspecified; E86.1 - Hypovolemia Status: Acute (5) Type 2 diabetes mellitus: Qualifiers: Diabetes mellitus watcher automat long goods insulin use: without watcher automat long goods use Diabetes mellitus complication status: with hyperglycemia Qualified Code(s): E11.65 - Type 2 diabetes mellitus with hyperglycemia Code(s): E11.9 - Type 2 diabetes mellitus without complications Status: Acute Assessment and Plan: She does have a history of a nuclear stress test on 06/19/2019. Normal. EF 66%. (6) ERROL (obstructive sleep apnea): Code(s): G47.33 - Obstructive sleep apnea (adult) (pediatric) Status: Acute (7) Leukocytosis: Qualifiers: Leukocytosis type: leukemoid reaction Qualified Code(s): D72.823 - Leukemoid reaction Code(s): D72.829 - Elevated white blood cell count, unspecified Status: Acute (8) Hypertension: Code(s): I10 - Essential (primary) hypertension Status: Acute (9) Hyperlipidemia: Code(s): E78.5 - Hyperlipidemia, unspecified Status: Acute (10) Umbilical hernia: Code(s): K42.9 - Umbilical hernia without obstruction or gangrene Status: Acute Assessment and Plan: Noted on CT Scan (11) History of gastric bypass: Code(s): Z98.84 - Bariatric surgery status Status: Acute Review of Systems Review of Systems: All systems reviewed & are unremarkable except as noted in HPI and below Exam Narrative: Exam Narrative: Abdomen soft. Small amount of blood on dressing (marked, no extension since marking) There is no signs of infection. No hematoma. No seroma. drains are transitioning serosanguineous. No increased blood in drains. SCDs in place. She has right calf tenderness with positive Homans. Const: General: no acute distress Other: Response to questions well. Has no complaints other than some right-sided incisional mild discomfort. Eyes: General: appearance normal, both eyes and all related structures Resp: Effort & Inspection: normal respiratory effort Cardio: Rate: regular rate Skin: General skin exam: normal color Neuro: Cognition (Neuro): normal cognition Other: Alert and oriented. Answering questions appropriately. Extrem: Other: No calf tenderness. Negative Homans. Psych: Mental Status: mental status grossly normal Objective Data Vital Signs Vital Signs: Vital Signs - 24 hr 11/18/19 12:00 11/18/19 14:00 11/18/19 16:00 Temperature 36.6 C 36.6 C Pulse Rate 74 81 74 Respiratory Rate 16 18 Blood Pressure 97/44 L 108/51 L Pulse Oximetry 99 100 11/18/19 18:00 11/18/19 19:38 11/18/19 20:00 Temperature 37.4 C Pulse Rate 78 78 81 Respiratory Rate 18 Blood Pressure 107/53 L Pulse Oximetry 98 11/18/19 21:26 11/18/19 23:49 11/19/19 00:00 Temperature 37.2 C Pulse Rate 81 20 L 79 Respiratory Rate 18 Blood Pressure 116/54 L Pulse Oximetry 97 11/19/19 02:00 11/19/19 04:00 11/19/19 05:36 Temperature 37.6 C Pulse Ra
[2019-11-19] MEDS: oxyCODONE/ACETAMINOPHEN 5-325 MG TABLET 1 TABLET PO ×2 (12:59→18:56)
--- NOTE | 2019-11-19 13:02 | PC.NURSE ---
Dr. Rao ordered LR stopped. Patient eating and drinking fine. Notified Dr. Rao patient is in a significant amount of pain. Patient states pain level is 5 out of 10, gave pain medication. Patient [place] popping sound when trying to sit to the side of bed. Pt has increased level of bleeding from incision located in the right posterior area. Patient is eating lunch and is stable
--- NOTE | 2019-11-19 13:41 | PM.IMPN ---
Progress Note: A&P Assessment and Plan (1) Hypotension: Qualifiers: Hypotension type: hypotension due to hypovolemia Qualified Code(s): I95.89 - Other hypotension; E86.1 - Hypovolemia Code(s): I95.9 - Hypotension, unspecified Status: Resolved Assessment and Plan: Postprocedural and or hypovolemic in nature. BP stabilised today Can restart BP medications Pt hb is @7, post op pannus removal. . (2) Acute renal injury due to hypovolemia: Code(s): N17.9 - Acute kidney failure, unspecified; E86.1 - Hypovolemia Status: Resolved Assessment and Plan: Creat is normal now (3) Type 2 diabetes mellitus: Qualifiers: Diabetes mellitus skilled nursing insulin use: without skilled nursing use Diabetes mellitus complication status: with hyperglycemia Qualified Code(s): E11.65 - Type 2 diabetes mellitus with hyperglycemia Code(s): E11.9 - Type 2 diabetes mellitus without complications Status: Acute Assessment and Plan: Moderate sliding scale insulin with Accu-Cheks a.c. HS and hypoglycemia protocol have been ordered. (4) ERROL (obstructive sleep apnea): Code(s): G47.33 - Obstructive sleep apnea (adult) (pediatric) Status: Acute Assessment and Plan: Resume CPAP once the patient'sblood pressures have stabilized. (5) Leukocytosis: Qualifiers: Leukocytosis type: leukemoid reaction Qualified Code(s): D72.823 - Leukemoid reaction Code(s): D72.829 - Elevated white blood cell count, unspecified Status: Resolved Assessment and Plan: Stress related Subjective Date/time seen: 11/19/19 13:41 Interval history: 64 year old female with a past medical history of type 2 diabetes mellitus, hypertension, chronic pain morbid obesity status pannus removal, pt had episode of hypotension yesterday but Bp today is stable now. Hb is 7.3 today. Pt had a suture open today. Pt started PT today and appears well otherwise. Review of Systems Review of Systems: All systems reviewed & are unremarkable except as noted in HPI and below Exam Const: General: cooperative and healthy appearing; No in distress Nutritional Appearance: overweight Orientation/consciousness: oriented to person HENMT: Head: normal to inspection Resp: Effort & Inspection: no respiratory distress Auscultation: no rhonchi and no wheezes Cardio: Rate: regular rate Rhythm: regular rhythm GI: Inspection: normal to inspection GI Palp: No abdominal tenderness, No Guarding due to palpation present (GI) and No Hepatomegaly present Auscultation: normal bowel sounds Neuro: General: oriented to person Objective Data Vital Signs Vital Signs: Vital Signs - 24 hr 11/18/19 14:00 11/18/19 16:00 11/18/19 18:00 Temperature 36.6 C Pulse Rate 81 74 78 Respiratory Rate 18 Blood Pressure 108/51 L Pulse Oximetry 100 11/18/19 19:38 11/18/19 20:00 11/18/19 21:26 Temperature 37.4 C Pulse Rate 78 81 81 Respiratory Rate 18 Blood Pressure 107/53 L Pulse Oximetry 98 11/18/19 23:49 11/19/19 00:00 11/19/19 02:00 Temperature 37.2 C Pulse Rate 20 L 79 83 Respiratory Rate 18 Blood Pressure 116/54 L Pulse Oximetry 97 11/19/19 04:00 11/19/19 05:36 11/19/19 08:00 Temperature 37.6 C 36.6 C Pulse Rate 83 82 90 Respiratory Rate 20 18 Blood Pressure 114/88 118/60 Pulse Oximetry 94 95 11/19/19 12:52 Temperature 37.7 C H Pulse Rate 97 Respiratory Rate 22 H Blood Pressure 129/76 Pulse Oximetry 97 Intake/Output Intake/Output: Intake & Output 11/16/19 11/17/19 11/18/19 11/19/19 23:59 23:59 23:59 23:59 Intake Total 1800 3955 2360 Output Total 1100 3268 1260 Balance 312 117 7083 Meds/Results Medications: Active Medications Generic Name Dose Route Start Last Admin Trade Name Freq PRN Reason Stop Dose Admin Baclofen 10 mg 11/17/19 11:00 11/17/19 22:21 Lioresal Po PO 10 mg TID PRN Administratio
[2019-11-19 13:55] LABS: Glucose Point of Care 124 (65-105)
[2019-11-19 16:56] LABS: Glucose Point of Care 167 (65-105)
--- NOTE | 2019-11-19 18:20 | PC.NURSE ---
This patient, Karolina Ramos, was transferred to [[id number] ] on 11/19/19 at 1810. Personal belongings sent with patient. Belongings list checked and signed with receiving [ ]. Report given to [CAT]. Appropriate documentation sent with patient.
[2019-11-19] MEDS: LOVASTATIN 20 MG TABLET PO (21:52)
[2019-11-19] MEDS: traZODone HCL 50 MG TABLET 200 MG PO (21:52)
[2019-11-19] MEDS: PANTOPRAZOLE 40 MG TABLET PO (21:52)
[2019-11-19 22:00] LABS: Glucose Point of Care 151 (65-105)
[2019-11-20] VITALS (11 sets, daily range): BP systolic 119–148; BP diastolic 50–74; PULSE 68–92; RESP 13–20; TEMP 36–36.9; O2SAT 95–99
[2019-11-20 05:57] LABS: Basophils Percent Auto 0.3 % (0.2-1.2); Eosinophils Absolute Auto 0.2 K/mm3 (0-0.3); Eosinophils Percent Auto 3.6 % (0-4.4); Hematocrit 21.2 % (37.0-47.0); Immature Granulocyte Absolute 0.02 K/mm3 (0.00-0.031); Immature Granulocyte Percent A 0.3 % (0-0.5); Lymphocytes Absolute Auto 1.49 K/mm3 (0.9-3.2); Lymphocytes Percent Auto 23.6 % (18.3-44.2); Mean Corpuscular HGB Conc 32.1 g/dl (32-36); Mean Corpuscular Hemoglobin 31.1 pg (26-34); Mean Corpuscular Volume 96.8 fl (80-100); Mean Platelet Volume 12.2 fl (7.4-10.4); Monocytes Absolute Auto 0.7 K/mm3 (0.1-0.6); Monocytes Percent Auto 11.1 % (2.6-8.5); Neutrophils Absolute Auto 3.9 K/mm3 (1.3-6.7); Neutrophils Percent Auto 61.1 % (45.5-73.1); Platelet Count Result 113 k/mm3 (150-375); Red Blood Count 2.19 M/mm3 (4.2-5.4); Red Cell Distribution Width 14.6 % (11.5-14.5); White Blood Count 6.3 K/mm3 (4.5-10.0)
[2019-11-20 06:02] LABS: Blood Urea Nitrogen 9 mg/dL (7-17); Calcium 9.3 mg/dL (8.4-10.2); Carbon Dioxide 31 mmol/L (22-30); Chloride 106 mmol/L (98-107); Estimated CRCL calculation 93 ml/min; Estimated Glomerular Filt Rate > 60; Glucose 103 mg/dL (65-105); Potassium 3.8 mmol/L (3.4-5.0); Sodium 137 mmol/L (137-145)
[2019-11-20] MEDS: GABAPENTIN 300 MG CAPSULE 600 MG PO ×3 (06:18→21:33)
[2019-11-20 06:23] LABS: Hemoglobin 6.8 g/dL (12.0-15.0)
[2019-11-20] MEDS: SODIUM CHLORIDE 0.9% IV 250 ML 30 ML IV CONT (07:40)
[2019-11-20] MEDS: predniSONE 5 MG TABLET PO (08:01)
[2019-11-20] MEDS: calcitrioL 0.25 MCG CAPSULE 1 MCG PO (08:01)
[2019-11-20] MEDS: buPROPion HCL SR (12HR) 100 MG TABCR PO ×2 (08:01→20:39)
[2019-11-20] MEDS: DULoxetine HCL 60 MG CAPSULE.DR 120 MG PO (08:02)
[2019-11-20] MEDS: MIRABEGRON 50 MG ER TABLET PO (08:02)
[2019-11-20 08:07] LABS: Glucose Point of Care 126 (65-105)
[2019-11-20] MEDS: DOCUSATE SODIUM 100 MG CAPSULE PO ×2 (08:08→20:39)
[2019-11-20] MEDS: oxyCODONE/ACETAMINOPHEN 5-325 MG TABLET 1 TABLET PO ×2 (10:20→21:33)
--- NOTE | 2019-11-20 11:28 | WPDPN ---
Progress Note: A&P Assessment and Plan (1) Panniculitis: Code(s): M79.3 - Panniculitis, unspecified Status: Acute Assessment and Plan: Receiving 1 unit per hospitalist. I see no evidence of active bleeding. Otherwise she feels very well. We will encourage her to ambulate and discontinue the Craft. She is very hesitant about this and we will encourage this activity. Appreciate hospitalist assistance. (2) Tenderness of right calf: Code(s): M79.661 - Pain in right lower leg Status: Acute Assessment and Plan: Ultrasound negative. Will monitor. (3) Low hemoglobin: Code(s): D64.9 - Anemia, unspecified Status: Acute Assessment and Plan: She received 1 unit. Rechecking labs. Will monitor. I see no evidence active bleeding currently however will follow closely. (4) Acute renal injury due to hypovolemia: Code(s): N17.9 - Acute kidney failure, unspecified; E86.1 - Hypovolemia Status: Resolved Assessment and Plan: Resolved. (5) Type 2 diabetes mellitus: Qualifiers: Diabetes mellitus fdc insulin use: without fdc use Diabetes mellitus complication status: with hyperglycemia Qualified Code(s): E11.65 - Type 2 diabetes mellitus with hyperglycemia Code(s): E11.9 - Type 2 diabetes mellitus without complications Status: Acute Assessment and Plan: She does have a history of a nuclear stress test on 06/19/2019. Normal. EF 66%. Management per hospitalist. (6) ERROL (obstructive sleep apnea): Code(s): G47.33 - Obstructive sleep apnea (adult) (pediatric) Status: Acute (7) Leukocytosis: Qualifiers: Leukocytosis type: leukemoid reaction Qualified Code(s): D72.823 - Leukemoid reaction Code(s): D72.829 - Elevated white blood cell count, unspecified Status: Resolved (8) Hypertension: Code(s): I10 - Essential (primary) hypertension Status: Acute (9) Hyperlipidemia: Code(s): E78.5 - Hyperlipidemia, unspecified Status: Acute (10) Umbilical hernia: Code(s): K42.9 - Umbilical hernia without obstruction or gangrene Status: Acute Assessment and Plan: Noted on CT Scan (11) History of gastric bypass: Code(s): Z98.84 - Bariatric surgery status Status: Acute Review of Systems Review of Systems: All systems reviewed & are unremarkable except as noted in HPI and below Exam Narrative: Exam Narrative: Abdomen soft. There is no signs of infection. No hematoma. No seroma. She does have a little bit of red drainage in her drain. Again no signs of hematoma or active bleeding. SCDs in place. She has right calf tenderness with positive Homans. Objective Data Vital Signs Vital Signs: Vital Signs - 24 hr 11/19/19 12:00 11/19/19 12:52 11/19/19 14:00 Temperature 37.7 C H Pulse Rate 88 97 95 Respiratory Rate 22 H Blood Pressure 129/76 Pulse Oximetry 97 11/19/19 16:00 11/19/19 18:26 11/19/19 22:00 Temperature 36.8 C 36.6 C 36.9 C Pulse Rate 85 90 78 Respiratory Rate 26 H 20 21 H Blood Pressure 117/54 L 118/58 L 122/65 Pulse Oximetry 96 97 100 11/20/19 00:52 11/20/19 06:00 11/20/19 07:35 Temperature 36.9 C 36.8 C 36.6 C Pulse Rate 72 73 74 Respiratory Rate 20 20 20 Blood Pressure 120/52 L 119/50 L 131/50 L Pulse Oximetry 98 98 97 11/20/19 07:55 11/20/19 08:55 11/20/19 09:55 Temperature 36.3 C L 36.4 C L 36.5 C Pulse Rate 83 91 83 Respiratory Rate 16 18 16 Blood Pressure 140/66 141/64 H 142/74 H Pulse Oximetry 98 95 97 11/20/19 10:37 Temperature 36.1 C L Pulse Rate 74 Respiratory Rate 16 Blood Pressure 148/69 H Pulse Oximetry 96 Intake/Output Intake/Output: Intake & Output 11/17/19 11/18/19 11/19/19 11/20/19 23:59 23:59 23:59 23:59 Intake Total 1800 3955 2720 1386 Output Total 1100 3268 1430 1800 Balance 033 780 2931 -414 Meds/Results Medications: Active Medications
[2019-11-20 12:40] LABS: Glucose Point of Care 130 (65-105)
[2019-11-20 13:17] LABS: Hemoglobin 8.6 g/dL (12.0-15.0)
--- NOTE | 2019-11-20 14:22 | PM.IMPN ---
Progress Note: A&P Assessment and Plan (1) Hypotension: Qualifiers: Hypotension type: hypotension due to hypovolemia Qualified Code(s): I95.89 - Other hypotension; E86.1 - Hypovolemia Code(s): I95.9 - Hypotension, unspecified Status: Resolved Assessment and Plan: pt receiving one unit of blood today, post op pannus removal. (2) Acute renal injury due to hypovolemia: Code(s): N17.9 - Acute kidney failure, unspecified; E86.1 - Hypovolemia Status: Resolved Assessment and Plan: Creat is normal now (3) Type 2 diabetes mellitus: Qualifiers: Diabetes mellitus mcfp insulin use: without manager long term care use Diabetes mellitus complication status: with hyperglycemia Qualified Code(s): E11.65 - Type 2 diabetes mellitus with hyperglycemia Code(s): E11.9 - Type 2 diabetes mellitus without complications Status: Acute Assessment and Plan: Moderate sliding scale insulin with Accu-Cheks a.c. HS and hypoglycemia protocol have been ordered. (4) ERROL (obstructive sleep apnea): Code(s): G47.33 - Obstructive sleep apnea (adult) (pediatric) Status: Acute Assessment and Plan: Resume CPAP once the patient'sblood pressures have stabilized. (5) Leukocytosis: Qualifiers: Leukocytosis type: leukemoid reaction Qualified Code(s): D72.823 - Leukemoid reaction Code(s): D72.829 - Elevated white blood cell count, unspecified Status: Resolved Assessment and Plan: Stress related, wcc nl now Subjective Date/time seen: 11/20/19 14:22 Interval history: 64 year old female with a past medical history of type 2 diabetes mellitus, hypertension, chronic pain morbid obesity status pannus removal, pt had episode of hypotension yesterday but Bp today is stable now. Pt receiving blood, pt appears tired and fatigued. Pt had a suture open yesterday when she sat up. Sp Panniculitis on 11/16 Review of Systems Review of Systems: Narrative: Feels tired and sleepy All systems reviewed & are unremarkable except as noted in HPI and below Exam Const: General: tired appearing and other Orientation/consciousness: oriented to person Resp: Effort & Inspection: normal respiratory effort Auscultation: clear to auscultation bilaterally, no rhonchi and no wheezes Cardio: Rate: regular rate Rhythm: regular rhythm Other: No tachycardia or bradycardia. GI: Inspection: normal to inspection Auscultation: normal bowel sounds Other: Covered by surgical dressings, no TTP two drains in situ Neuro: General: oriented to person Speech: normal speech Motor exam (neuro): Normal motor muscle tone present throughout Sensory Exam: normal sensation Psych: Affect: normal affect Objective Data Vital Signs Vital Signs: Vital Signs - 24 hr 11/19/19 16:00 11/19/19 18:26 11/19/19 22:00 Temperature 36.8 C 36.6 C 36.9 C Pulse Rate 85 90 78 Respiratory Rate 26 H 20 21 H Blood Pressure 117/54 L 118/58 L 122/65 Pulse Oximetry 96 97 100 11/20/19 00:52 11/20/19 06:00 11/20/19 07:35 Temperature 36.9 C 36.8 C 36.6 C Pulse Rate 72 73 74 Respiratory Rate 20 20 20 Blood Pressure 120/52 L 119/50 L 131/50 L Pulse Oximetry 98 98 97 11/20/19 07:55 11/20/19 08:55 11/20/19 09:55 Temperature 36.3 C L 36.4 C L 36.5 C Pulse Rate 83 91 83 Respiratory Rate 16 18 16 Blood Pressure 140/66 141/64 H 142/74 H Pulse Oximetry 98 95 97 11/20/19 10:37 Temperature 36.1 C L Pulse Rate 74 Respiratory Rate 16 Blood Pressure 148/69 H Pulse Oximetry 96 Intake/Output Intake/Output: Intake & Output 11/17/19 11/18/19 11/19/19 11/20/19 23:59 23:59 23:59 23:59 Intake Total 1800 3955 2720 1386 Output Total 1100 3268 1430 2900 Balance 712 750 5620 -1514 Meds/Results Medications: Active Medications Generic Name Dose Route Start Last Admin Trade Name Ryderq PRN Reason Stop Dose Admin Baclofen 10 mg 11/17/19 11:00 11/17/19 22:21 Lioresal Po
[2019-11-20] MEDS: oxyCODONE/ACETAMINOPHEN 5-325 MG TABLET 2 TABLET PO (16:06)
[2019-11-20 16:36] LABS: Glucose Point of Care 139 (65-105)
--- NOTE | 2019-11-20 18:20 | WPDPN ---
Progress Note: A&P Assessment and Plan (1) Panniculitis: Code(s): M79.3 - Panniculitis, unspecified Status: Acute Assessment and Plan: Received 1 unit per hospitalist. H/H with significant improvement. I see no evidence of active bleeding. No signs of hematoma. Drain output is now slowing. Feeling well. Encourage her to ambulate. Discharge planning. (2) Tenderness of right calf: Code(s): M79.661 - Pain in right lower leg Status: Acute Assessment and Plan: Ultrasound negative. Will monitor. (3) Low hemoglobin: Code(s): D64.9 - Anemia, unspecified Status: Acute Assessment and Plan: H/H had significant improvement with just 1 unit. No evidence of active bleeding. (4) Acute renal injury due to hypovolemia: Code(s): N17.9 - Acute kidney failure, unspecified; E86.1 - Hypovolemia Status: Resolved Assessment and Plan: Resolved. 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 Normal. EF 66%. Management per hospitalist. (6) ERROL (obstructive sleep apnea): Code(s): G47.33 - Obstructive sleep apnea (adult) (pediatric) Status: Acute (7) Leukocytosis: Qualifiers: Leukocytosis type: leukemoid reaction Qualified Code(s): D72.823 - Leukemoid reaction Code(s): D72.829 - Elevated white blood cell count, unspecified Status: Resolved (8) Hypertension: Code(s): I10 - Essential (primary) hypertension Status: Acute (9) Hyperlipidemia: Code(s): E78.5 - Hyperlipidemia, unspecified Status: Acute (10) Umbilical hernia: Code(s): K42.9 - Umbilical hernia without obstruction or gangrene Status: Acute Assessment and Plan: Noted on CT Scan (11) History of gastric bypass: Code(s): Z98.84 - Bariatric surgery status Status: Acute (12) Nicotine dependence: Code(s): F17.200 - Nicotine dependence, unspecified, uncomplicated Status: Acute Additional Plan She understands she needs to avoid all nicotine use. Any nicotine exposure can lead to would breakdown, infection, skin loss, open wounds, and other complications. She is well informed of these risks. Time Spent With Patient Time with patient: 15 - 25 minutes Review of Systems Review of Systems: All systems reviewed & are unremarkable except as noted in HPI and below Exam Narrative: Exam Narrative: Abdomen soft. Healing well. There is no signs of infection. No hematoma. No seroma. Minimal drainage from right FROY drain which is dark. Minimal drainage on dressing which appears dark. Const: General: comfortable and no acute distress Resp: Effort & Inspection: normal respiratory effort Cardio: Rate: regular rate GI: GI Palp: Yes Soft to palpation Skin: General skin exam: normal color Neuro: Cognition (Neuro): normal cognition Speech: normal speech Psych: Mental Status: mental status grossly normal Objective Data Vital Signs Vital Signs: Vital Signs - 24 hr 11/19/19 18:26 11/19/19 22:00 11/20/19 00:52 Temperature 36.6 C 36.9 C 36.9 C Pulse Rate 90 78 72 Respiratory Rate 20 21 H 20 Blood Pressure 118/58 L 122/65 120/52 L Pulse Oximetry 97 100 98 11/20/19 06:00 11/20/19 07:35 11/20/19 07:55 Temperature 36.8 C 36.6 C 36.3 C L Pulse Rate 73 74 83 Respiratory Rate 20 20 16 Blood Pressure 119/50 L 131/50 L 140/66 Pulse Oximetry 98 97 98 11/20/19 08:55 11/20/19 09:55 11/20/19 10:37 Temperature 36.4 C L 36.5 C 36.1 C L Pulse Rate 91 83 74 Respiratory Rate 18 16 16 Blood Pressure 141/64 H 142/7
[2019-11-20] MEDS: LOVASTATIN 20 MG TABLET PO (20:39)
[2019-11-20] MEDS: PANTOPRAZOLE 40 MG TABLET PO (20:39)
[2019-11-20] MEDS: traZODone HCL 50 MG TABLET 200 MG PO (20:39)
[2019-11-20 20:47] LABS: Glucose Point of Care 193 (65-105)
[2019-11-21 04:00] VITALS: BP 133/71; PULSE 69; RESP 16; TEMP 36.3; O2SAT 97
[2019-11-21] MEDS: oxyCODONE/ACETAMINOPHEN 5-325 MG TABLET 1 TABLET PO ×3 (04:27→16:11)
[2019-11-21 05:45] LABS: Basophils Percent Auto 0.3 % (0.2-1.2); Eosinophils Absolute Auto 0.4 K/mm3 (0-0.3); Eosinophils Percent Auto 6.4 % (0-4.4); Hematocrit 23.8 % (37.0-47.0); Hemoglobin 7.9 g/dL (12.0-15.0); Immature Granulocyte Absolute 0.04 K/mm3 (0.00-0.031); Immature Granulocyte Percent A 0.6 % (0-0.5); Immature Platelet Fraction Pct 7.6 % (0.9-11.2); Lymphocytes Absolute Auto 1.65 K/mm3 (0.9-3.2); Lymphocytes Percent Auto 23.9 % (18.3-44.2); Mean Corpuscular HGB Conc 33.2 g/dl (32-36); Mean Corpuscular Hemoglobin 31.6 pg (26-34); Mean Corpuscular Volume 95.2 fl (80-100); Mean Platelet Volume 11.6 fl (7.4-10.4); Monocytes Absolute Auto 0.7 K/mm3 (0.1-0.6); Monocytes Percent Auto 10.3 % (2.6-8.5); Neutrophils Percent Auto 58.5 % (45.5-73.1); Platelet Count Result 141 k/mm3 (150-375); Red Cell Distribution Width 15.3 % (11.5-14.5); White Blood Count 6.9 K/mm3 (4.5-10.0)
[2019-11-21 05:56] LABS: Blood Urea Nitrogen 10 mg/dL (7-17); Calcium 9.4 mg/dL (8.4-10.2); Carbon Dioxide 30 mmol/L (22-30); Chloride 106 mmol/L (98-107); Estimated CRCL calculation 107 ml/min; Estimated Glomerular Filt Rate > 60; Glucose 109 mg/dL (65-105); Potassium 3.3 mmol/L (3.4-5.0); Sodium 138 mmol/L (137-145)
[2019-11-21] MEDS: GABAPENTIN 300 MG CAPSULE 600 MG PO ×3 (06:25→21:04)
--- NOTE | 2019-11-21 07:44 | WPDPN ---
Progress Note: A&P Assessment and Plan (1) Panniculitis: Code(s): M79.3 - Panniculitis, unspecified Status: Acute Assessment and Plan: She is doing very well today. Her H/H today is what I would anticipate. No evidence of active bleeding. D/C planning. She has concerns for her safety at home. Will have PT / OT see her. Will d/c home when: Tolerating PO Ambulating Pain controlled Is safe for d/c home (her and her caregivers can safely care for her) (2) Tenderness of right calf: Code(s): M79.661 - Pain in right lower leg Status: Acute Assessment and Plan: Ultrasound negative. Will monitor. (3) Low hemoglobin: Code(s): D64.9 - Anemia, unspecified Status: Acute Assessment and Plan: No signs / symptoms of active bleeding. (4) Acute renal injury due to hypovolemia: Code(s): N17.9 - Acute kidney failure, unspecified; E86.1 - Hypovolemia Status: Resolved Assessment and Plan: Resolved. (5) Type 2 diabetes mellitus: Qualifiers: Diabetes mellitus correction insulin use: without correction use Diabetes mellitus complication status: with hyperglycemia Qualified Code(s): E11.65 - Type 2 diabetes mellitus with hyperglycemia Code(s): E11.9 - Type 2 diabetes mellitus without complications Status: Acute Assessment and Plan: She does have a history of a nuclear stress test on 06/19/2019. Normal. EF 66%. Management per hospitalist. (6) ERROL (obstructive sleep apnea): Code(s): G47.33 - Obstructive sleep apnea (adult) (pediatric) Status: Acute (7) Leukocytosis: Qualifiers: Leukocytosis type: leukemoid reaction Qualified Code(s): D72.823 - Leukemoid reaction Code(s): D72.829 - Elevated white blood cell count, unspecified Status: Resolved (8) Hypertension: Code(s): I10 - Essential (primary) hypertension Status: Acute (9) Hyperlipidemia: Code(s): E78.5 - Hyperlipidemia, unspecified Status: Acute (10) Umbilical hernia: Code(s): K42.9 - Umbilical hernia without obstruction or gangrene Status: Acute Assessment and Plan: Noted on CT Scan (11) History of gastric bypass: Code(s): Z98.84 - Bariatric surgery status Status: Acute (12) Nicotine dependence: Code(s): F17.200 - Nicotine dependence, unspecified, uncomplicated Status: Acute Review of Systems Review of Systems: Narrative: Continues to have right calf tenderness. All systems reviewed & are unremarkable except as noted in HPI and below Exam Narrative: Exam Narrative: Abdomen is healing well. No signs of infection. No hematoma. No seroma. Drains are serosangenous. Less drainage. Right calf remains tender. Const: General: comfortable and no acute distress Eyes: General: appearance normal, both eyes and all related structures Resp: Effort & Inspection: normal respiratory effort Cardio: Rate: regular rate GI: GI Palp: Yes Soft to palpation Skin: General skin exam: normal color Neuro: Cognition (Neuro): normal cognition Speech: normal speech Psych: Mental Status: mental status grossly normal Objective Data Vital Signs Vital Signs: Vital Signs - 24 hr 11/20/19 07:55 11/20/19 08:55 11/20/19 09:55 Temperature 36.3 C L 36.4 C L 36.5 C Pulse Rate 83 91 83 Respiratory Rate 16 18 16 Blood Pressure 140/66 141/64 H 142/74 H Pulse Oximetry 98 95 97 11/20/19 10:37 11/20/19 14:00 11/20/19 18:00 Temperature 36.1 C L 36.0 C L 36.4 C Pulse Rate 74 76 92 Respiratory Rate 16 18 18 Blood Pressure 148/69 H 148/67 H 135/51 L Pulse Oximetry 96 99 97 11/20/19 22:08 11/20/19 22:09 11/21/19 04:00 Temperature 36.4 C 36.3 C L Pulse Rate 70 68 69 Respiratory Rate 16 13 16 Blood Pressure 134/62 133/71 Pulse Oximetry 98 95 97 Intake/Output Intake/Output: Intake & Output 11/18/19 11/19/19 11/20/19 11/21/19 23:59 23:59 23:59 23:
[2019-11-21 08:06] LABS: Glucose Point of Care 112 (65-105)
[2019-11-21] MEDS: buPROPion HCL SR (12HR) 100 MG TABCR PO ×2 (09:47→21:04)
[2019-11-21] MEDS: predniSONE 5 MG TABLET PO (09:47)
[2019-11-21] MEDS: calcitrioL 0.25 MCG CAPSULE 1 MCG PO (09:47)
[2019-11-21] MEDS: DULoxetine HCL 60 MG CAPSULE.DR 120 MG PO (09:48)
[2019-11-21] MEDS: MIRABEGRON 50 MG ER TABLET PO (09:48)
[2019-11-21] MEDS: DOCUSATE SODIUM 100 MG CAPSULE PO ×2 (10:21→21:33)
[2019-11-21 12:00] VITALS: BP 152/75; PULSE 75; RESP 19; TEMP 36.6; O2SAT 99
[2019-11-21 12:04] LABS: Glucose Point of Care 125 (65-105)
--- NOTE | 2019-11-21 14:59 | PM.IMPN ---
Progress Note: A&P Assessment and Plan (1) Hypotension: Qualifiers: Hypotension type: hypotension due to hypovolemia Qualified Code(s): I95.89 - Other hypotension; E86.1 - Hypovolemia Code(s): I95.9 - Hypotension, unspecified Status: Resolved Assessment and Plan: BP is improved, post op pannus removal. (2) Acute renal injury due to hypovolemia: Code(s): N17.9 - Acute kidney failure, unspecified; E86.1 - Hypovolemia Status: Resolved Assessment and Plan: Creat is normal now (3) Type 2 diabetes mellitus: Qualifiers: Diabetes mellitus alf insulin use: without terminal clerk use Diabetes mellitus complication status: with hyperglycemia Qualified Code(s): E11.65 - Type 2 diabetes mellitus with hyperglycemia Code(s): E11.9 - Type 2 diabetes mellitus without complications Status: Acute Assessment and Plan: Moderate sliding scale insulin with Accu-Cheks a.c. HS and hypoglycemia protocol have been ordered. (4) ERROL (obstructive sleep apnea): Code(s): G47.33 - Obstructive sleep apnea (adult) (pediatric) Status: Acute Assessment and Plan: Resume CPAP once the patient's blood pressures have stabilized. (5) Leukocytosis: Qualifiers: Leukocytosis type: leukemoid reaction Qualified Code(s): D72.823 - Leukemoid reaction Code(s): D72.829 - Elevated white blood cell count, unspecified Status: Resolved Assessment and Plan: Stress related, wcc nl now (6) Panniculitis: Code(s): M79.3 - Panniculitis, unspecified Status: Acute Assessment and Plan: POst op hopeful discharge tomorrow pt is ambulating more a feels much better awaiting bowel movement, tolerating a diet Additional Plan . Subjective Date/time seen: 11/21/19 14:59 Interval history: 64 year old female with a past medical history of type 2 diabetes mellitus, hypertension, chronic pain morbid obesity status pannus removal, pt appears much better today, some concerns about urinary dysuria today. Sp Panniculitis on 11/16 Review of Systems Review of Systems: All systems reviewed & are unremarkable except as noted in HPI and below Exam Const: General: tired appearing and other Nutritional Appearance: overweight Orientation/consciousness: oriented to person Resp: Effort & Inspection: normal respiratory effort Auscultation: clear to auscultation bilaterally, no rhonchi and no wheezes Cardio: Rate: regular rate Rhythm: regular rhythm GI: Inspection: normal to inspection Auscultation: normal bowel sounds Other: Covered by fresh surgical dressings, no TTP, two drains in situ Neuro: General: oriented to person Speech: normal speech Motor exam (neuro): Normal motor muscle tone present throughout Sensory Exam: normal sensation Psych: Affect: normal affect Objective Data Vital Signs Vital Signs: Vital Signs - 24 hr 11/20/19 18:00 11/20/19 22:08 11/20/19 22:09 Temperature 36.4 C 36.4 C Pulse Rate 92 70 68 Respiratory Rate 18 16 13 Blood Pressure 135/51 L 134/62 Pulse Oximetry 97 98 95 11/21/19 04:00 11/21/19 12:00 Temperature 36.3 C L 36.6 C Pulse Rate 69 75 Respiratory Rate 16 19 Blood Pressure 133/71 152/75 H Pulse Oximetry 97 99 Intake/Output Intake/Output: Intake & Output 11/18/19 11/19/19 11/20/19 11/21/19 23:59 23:59 23:59 23:59 Intake Total 3955 2720 2506 1180 Output Total 3268 1430 3408 2675 Balance 687 3868 -681 -8570 Meds/Results Medications: Active Medications Generic Name Dose Route Start Last Admin Trade Name Freq PRN Reason Stop Dose Admin Baclofen 10 mg 11/17/19 11:00 11/17/19 22:21 Lioresal Po PO 10 mg TID PRN Administration Pain 1-3 Bupropion HCl 100 mg 11/17/19 21:00 11/21/19 09:47 Wellbutrin-Sr (12hr) PO 100 mg Q12HR AMADEO Administration Calcitriol 1 mcg 11/18/19 09:00 11/21/19 09:47 Rocaltrol PO 1 mcg DAILY AMADEO
[2019-11-21 15:28] LABS: Add Urine Microscopic? YES; Appearance Urine Clear (Clear); Bacteria Urine Trace /hpf; Bilirubin Urine Negative (Negative); Blood Urine Negative (Negative); Color Urine Yellow (Yellow); Glucose Urine UA 1+ mg/dL (Negative); Ketones Urine Negative (Negative); Leukocyte Esterase Ur Negative LEU/UL (NEGATIVE); Mucus Urine Rare /lpf; Nitrate Urine Positive (Negative); Protein Urine Negative (Negative); RBC Urine 0-2 /hpf (0-2); Specific Grav Ur 1.017 (1.001-1.035); Squamous Epithelial Cell Urine Few /hpf (Few); WBC Urine 0-3 /hpf (0-3)
[2019-11-21 16:00] VITALS: BP 152/85; PULSE 81; RESP 19; TEMP 36.6; O2SAT 97
[2019-11-21 17:21] LABS: Glucose Point of Care 126 (65-105)
[2019-11-21 20:00] VITALS: BP 144/66; PULSE 89; RESP 20; TEMP 37; O2SAT 97
[2019-11-21] MEDS: PANTOPRAZOLE 40 MG TABLET PO (21:04)
[2019-11-21] MEDS: traZODone HCL 50 MG TABLET 200 MG PO (21:04)
[2019-11-21] MEDS: LOVASTATIN 20 MG TABLET PO (21:04)
[2019-11-21] MEDS: BACLOFEN 10 MG TABLET PO (21:32)
[2019-11-21 22:45] LABS: Glucose Point of Care 159 (65-105)
[2019-11-21 23:16] VITALS: PULSE 72; RESP 17; O2SAT 95
[2019-11-22] VITALS: BP 139/65; PULSE 67; RESP 20; TEMP 36.2; O2SAT 97
[2019-11-22 04:00] VITALS: BP 135/75; PULSE 72; RESP 20; TEMP 36.4; O2SAT 98
[2019-11-22] MEDS: GABAPENTIN 300 MG CAPSULE 600 MG PO ×3 (06:30→20:35)
[2019-11-22] MEDS: oxyCODONE/ACETAMINOPHEN 5-325 MG TABLET 1 TABLET PO ×3 (07:55→20:36)
[2019-11-22 08:00] VITALS: BP 153/85; PULSE 73; RESP 19; TEMP 36.3; O2SAT 97
[2019-11-22] MEDS: calcitrioL 0.25 MCG CAPSULE 1 MCG PO (08:28)
[2019-11-22] MEDS: DOCUSATE SODIUM 100 MG CAPSULE PO ×2 (08:28→20:35)
[2019-11-22] MEDS: predniSONE 5 MG TABLET PO (08:28)
[2019-11-22] MEDS: buPROPion HCL SR (12HR) 100 MG TABCR PO ×2 (08:28→20:35)
[2019-11-22] MEDS: FERROUS SULFATE 324 MG TABLET PO (08:29)
[2019-11-22] MEDS: MIRABEGRON 50 MG ER TABLET PO (08:29)
[2019-11-22] MEDS: DULoxetine HCL 60 MG CAPSULE.DR 120 MG PO (08:29)
[2019-11-22 08:39] LABS: Glucose Point of Care 131 (65-105)
--- NOTE | 2019-11-22 09:37 | PM.IMPN ---
Progress Note: A&P Assessment and Plan (1) Hypotension: Qualifiers: Hypotension type: hypotension due to hypovolemia Qualified Code(s): I95.89 - Other hypotension; E86.1 - Hypovolemia Code(s): I95.9 - Hypotension, unspecified Status: Resolved Assessment and Plan: BP is improved, post op pannus removal. 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 HS and hypoglycemia protocol have been ordered. (4) ERROL (obstructive sleep apnea): Code(s): G47.33 - Obstructive sleep apnea (adult) (pediatric) Status: Acute Assessment and Plan: Resume CPAP once the patient's blood pressures have stabilized. (5) Leukocytosis: Qualifiers: Leukocytosis type: leukemoid reaction Qualified Code(s): D72.823 - Leukemoid reaction Code(s): D72.829 - Elevated white blood cell count, unspecified Status: Resolved Assessment and Plan: Stress related, wcc nl now (6) Panniculitis: Code(s): M79.3 - Panniculitis, unspecified Status: Acute Assessment and Plan: POst op hopeful discharge tomorrow pt is ambulating more a feels much better awaiting bowel movement, tolerating a diet concerns about drainage output hopefully home saturday or saturday. Additional Plan . Subjective Date/time seen: 11/22/19 09:37 Interval history: 64 year old female with a past medical history of type 2 diabetes mellitus, hypertension, chronic pain morbid obesity status pannus removal, pt appears much better, not had bowel movement yet, some concerns about drainage output from drains. Sp Panniculitis on 11/16, Hb is 7.9, UA was negative pt treated for UTI as she feels symptomatic Review of Systems Review of Systems: All systems reviewed & are unremarkable except as noted in HPI and below Exam Const: Nutritional Appearance: overweight Orientation/consciousness: oriented to person HENMT: Head: normal to inspection Neck: Neck: supple and no JVD Resp: Effort & Inspection: normal respiratory effort Auscultation: no rhonchi and no wheezes Cardio: Rate: regular rate Rhythm: regular rhythm Other: No tachycardia or bradycardia. GI: Inspection: normal to inspection Auscultation: normal bowel sounds Other: Covered by fresh surgical dressings, no TTP, two drains in situ Neuro: General: oriented to person Speech: normal speech Motor exam (neuro): Normal motor muscle tone present throughout Sensory Exam: normal sensation Psych: Affect: normal affect Objective Data Vital Signs Vital Signs: Vital Signs - 24 hr 11/21/19 12:00 11/21/19 16:00 11/21/19 20:00 Temperature 36.6 C 36.6 C 37.0 C Pulse Rate 75 81 89 Respiratory Rate 19 19 20 Blood Pressure 152/75 H 152/85 H 144/66 H Pulse Oximetry 99 97 97 11/21/19 23:16 11/22/19 00:00 11/22/19 04:00 Temperature 36.2 C L 36.4 C L Pulse Rate 72 67 72 Respiratory Rate 17 20 20 Blood Pressure 139/65 135/75 Pulse Oximetry 95 97 98 Intake/Output Intake/Output: Intake & Output 11/19/19 11/20/19 11/21/19 11/22/19 23:59 23:59 23:59 23:59 Intake Total 2720 2506 1610 520 Output Total 1430 3408 3830 120 Balance 0110 902 2220 400 Meds/Results Medications: Active Medications Generic Name Dose Route Start Last Admin Trade Name Freq PRN Reason Stop Dose Admin Baclofen 10 mg 11/17/19 11:00 11/21/19 21:32 Lioresal Po PO 10 mg TID
[2019-11-22] MEDS: POTASSIUM CHLORIDE 20 MEQ TABLET.ER PO (09:47)
[2019-11-22 12:15] LABS: Glucose Point of Care 124 (65-105)
--- NOTE | 2019-11-22 13:12 | WPDPN ---
Progress Note: A&P Assessment and Plan (1) Panniculitis: Code(s): M79.3 - Panniculitis, unspecified Status: Acute Assessment and Plan: No evidence of bleeding. Doing well. Ambulating. Plan for D/c tomorrow. Appreciate hospitalist assistance. (2) Acute renal injury due to hypovolemia: Code(s): N17.9 - Acute kidney failure, unspecified; E86.1 - Hypovolemia Status: Resolved Assessment and Plan: Resolved. (3) Type 2 diabetes mellitus: Qualifiers: Diabetes mellitus ferry terminal agent insulin use: without care home use Diabetes mellitus complication status: with hyperglycemia Qualified Code(s): E11.65 - Type 2 diabetes mellitus with hyperglycemia Code(s): E11.9 - Type 2 diabetes mellitus without complications Status: Acute Assessment and Plan: She does have a history of a nuclear stress test on 06/19/2019. Normal. EF 66%. Management per hospitalist. (4) ERROL (obstructive sleep apnea): Code(s): G47.33 - Obstructive sleep apnea (adult) (pediatric) Status: Acute (5) Leukocytosis: Qualifiers: Leukocytosis type: leukemoid reaction Qualified Code(s): D72.823 - Leukemoid reaction Code(s): D72.829 - Elevated white blood cell count, unspecified Status: Resolved (6) Hypertension: Code(s): I10 - Essential (primary) hypertension Status: Acute Assessment and Plan: Per Hospitalist. (7) Tenderness of right calf: Code(s): M79.661 - Pain in right lower leg Status: Acute Assessment and Plan: Ultrasound negative. Will monitor. (8) Low hemoglobin: Code(s): D64.9 - Anemia, unspecified Status: Acute Assessment and Plan: No signs / symptoms of active bleeding. (9) Hyperlipidemia: Code(s): E78.5 - Hyperlipidemia, unspecified Status: Acute (10) Umbilical hernia: Code(s): K42.9 - Umbilical hernia without obstruction or gangrene Status: Acute Assessment and Plan: Noted on CT Scan (11) History of gastric bypass: Code(s): Z98.84 - Bariatric surgery status Status: Acute (12) Nicotine dependence: Code(s): F17.200 - Nicotine dependence, unspecified, uncomplicated Status: Acute Additional Plan . Review of Systems Review of Systems: Narrative: Continues to have right calf tenderness. All systems reviewed & are unremarkable except as noted in HPI and below Exam Narrative: Exam Narrative: Exam Narrative: Abdomen is healing well. No signs of infection. No hematoma. No seroma. Drains continue to decrease in output. No evidence of active bleeding. Right calf remains tender. Const: Nutritional Appearance: overweight Orientation/consciousness: oriented to person HENMT: Head: normal to inspection Neck: Neck: supple and no JVD Resp: Effort & Inspection: normal respiratory effort Auscultation: no rhonchi and no wheezes Cardio: Rate: regular rate Rhythm: regular rhythm GI: Inspection: normal to inspection Neuro: General: oriented to person Speech: normal speech Motor exam (neuro): Normal motor muscle tone present throughout Sensory Exam: normal sensation Psych: Affect: normal affect Objective Data Vital Signs Vital Signs: Vital Signs - 24 hr 11/21/19 16:00 11/21/19 20:00 11/21/19 23:16 Temperature 36.6 C 37.0 C Pulse Rate 81 89 72 Respiratory Rate 19 20 17 Blood Pressure 152/85 H 144/66 H Pulse Oximetry 97 97 95 11/22/19 00:00 11/22/19 04:00 11/22/19 08:00 Temperature 36.2 C L 36.4 C L 36.3 C L Pulse Rate 67 72 73 Respiratory Rate 20 20 19 Blood Pressure 139/65 135/75 153/85 H Pulse Oximetry 97 98 97 Intake/Output Intake/Output: Intake & Output 11/19/19 11/20/19 11/21/19 11/22/19 23:59 23:59 23:59 23:59 Intake Total 2720 2506 1610 760 Output Total 1430 3408 3830 155 Balance 4190 -472 -8920 605 Meds/Results Medications: Active Medications Generic Name Dose Route Start
[2019-11-22 14:55] VITALS: BP 147/53; PULSE 70; RESP 15; TEMP 37.4; O2SAT 96
[2019-11-22 17:22] LABS: Glucose Point of Care 138 (65-105)
[2019-11-22] MEDS: PANTOPRAZOLE 40 MG TABLET PO (20:35)
[2019-11-22] MEDS: traZODone HCL 50 MG TABLET 200 MG PO (20:35)
[2019-11-22] MEDS: LOVASTATIN 20 MG TABLET PO (20:36)
[2019-11-22 21:05] VITALS: PULSE 70; RESP 16; O2SAT 96
[2019-11-22 21:32] LABS: Glucose Point of Care 124 (65-105)
[2019-11-22 21:38] VITALS: BP 149/81; PULSE 73; RESP 18; TEMP 36.3; O2SAT 97
[2019-11-23] VITALS (8 sets, daily range): BP systolic 141–161; BP diastolic 61–84; PULSE 66–94; RESP 16–20; TEMP 36–36.4; O2SAT 95–100
[2019-11-23] MEDS: oxyCODONE/ACETAMINOPHEN 5-325 MG TABLET 1 TABLET PO ×2 (03:27→17:12)
[2019-11-23 05:09] LABS: Hematocrit 25.3 % (37.0-47.0); Hemoglobin 8.1 g/dL (12.0-15.0); Mean Corpuscular Hemoglobin 31.2 pg (26-34); Mean Corpuscular Volume 97.3 fl (80-100); Mean Platelet Volume 11.5 fl (7.4-10.4); Platelet Count Result 180 k/mm3 (150-375); Red Cell Distribution Width 15.3 % (11.5-14.5); White Blood Count 8.2 K/mm3 (4.5-10.0)
[2019-11-23 05:31] LABS: Blood Urea Nitrogen 11 mg/dL (7-17); Calcium 9.5 mg/dL (8.4-10.2); Carbon Dioxide 30 mmol/L (22-30); Chloride 105 mmol/L (98-107); Estimated CRCL calculation 107 ml/min; Estimated Glomerular Filt Rate > 60; Glucose 113 mg/dL (65-105); Potassium 3.6 mmol/L (3.4-5.0); Sodium 137 mmol/L (137-145)
[2019-11-23] MEDS: GABAPENTIN 300 MG CAPSULE 600 MG PO ×3 (06:17→21:25)
--- NOTE | 2019-11-23 06:33 | WPDPN ---
Progress Note: A&P Assessment and Plan (1) Panniculitis: Code(s): M79.3 - Panniculitis, unspecified Status: Acute Assessment and Plan: Will plan for d/c home today when OK with hospitalist. F/U 1 week. Keep us updated with drain outputs. Encourage ambulation. Nursing to provide drain care instruction. (2) Type 2 diabetes mellitus: Qualifiers: Diabetes mellitus intermediate designer insulin use: without mcc use Diabetes mellitus complication status: with hyperglycemia Qualified Code(s): E11.65 - Type 2 diabetes mellitus with hyperglycemia Code(s): E11.9 - Type 2 diabetes mellitus without complications Status: Acute Assessment and Plan: She does have a history of a nuclear stress test on 06/19/2019. Normal. EF 66%. Management per hospitalist. (3) ERROL (obstructive sleep apnea): Code(s): G47.33 - Obstructive sleep apnea (adult) (pediatric) Status: Acute Assessment and Plan: Per Hospitalist. (4) Hypertension: Code(s): I10 - Essential (primary) hypertension Status: Acute Assessment and Plan: Per Hospitalist. (5) Tenderness of right calf: Code(s): M79.661 - Pain in right lower leg Status: Acute Assessment and Plan: Ultrasound negative. Will monitor. (6) Low hemoglobin: Code(s): D64.9 - Anemia, unspecified Status: Acute Assessment and Plan: No signs / symptoms of active bleeding. (7) Hyperlipidemia: Code(s): E78.5 - Hyperlipidemia, unspecified Status: Acute (8) Umbilical hernia: Code(s): K42.9 - Umbilical hernia without obstruction or gangrene Status: Acute Assessment and Plan: Noted on CT Scan (9) History of gastric bypass: Code(s): Z98.84 - Bariatric surgery status Status: Acute (10) Nicotine dependence: Code(s): F17.200 - Nicotine dependence, unspecified, uncomplicated Status: Acute Assessment and Plan: She understands the importance of nicotine avoidance and the risks of continued use. (11) Acute renal injury due to hypovolemia: Code(s): N17.9 - Acute kidney failure, unspecified; E86.1 - Hypovolemia Status: Resolved Assessment and Plan: Resolved. Additional Plan . Exam Narrative: Exam Narrative: Exam Narrative: Abdomen is healing well. No signs of infection. No hematoma. No seroma. Drains serosangenous. Const: Nutritional Appearance: overweight Orientation/consciousness: oriented to person HENMT: Head: normal to inspection Neck: Neck: supple and no JVD Resp: Effort & Inspection: normal respiratory effort Auscultation: no rhonchi and no wheezes Cardio: Rate: regular rate Rhythm: regular rhythm GI: Inspection: normal to inspection Neuro: General: oriented to person Speech: normal speech Motor exam (neuro): Normal motor muscle tone present throughout Sensory Exam: normal sensation Psych: Affect: normal affect Objective Data Vital Signs Vital Signs: Vital Signs - 24 hr 11/22/19 08:00 11/22/19 14:55 11/22/19 21:05 Temperature 36.3 C L 37.4 C Pulse Rate 73 70 70 Respiratory Rate 19 15 16 Blood Pressure 153/85 H 147/53 H Pulse Oximetry 97 96 96 11/22/19 21:38 11/23/19 01:58 11/23/19 02:05 Temperature 36.3 C L 36.2 C L Pulse Rate 73 68 75 Respiratory Rate 18 16 16 Blood Pressure 149/81 H 141/84 H Pulse Oximetry 97 95 98 11/23/19 05:26 Temperature 36.1 C L Pulse Rate 66 Respiratory Rate 18 Blood Pressure 161/81 H Pulse Oximetry 100 Intake/Output Intake/Output: Intake & Output 11/20/19 11/21/19 11/22/19 11/23/19 23:59 23:59 23:59 23:59 Intake Total 2506 1610 1000 250 Output Total 3408 3830 830 870 [facility] [phone] -620 Meds/Results Medications: Active Medications Generic Name Dose Route Start Last Admin Trade Name Freq PRN Reason Stop Dose Admin Baclofen 10 mg 11/17/19 11:00 11/21/19 21:32 Lioresal Po PO 10 mg TID PRN
[2019-11-23 07:37] LABS: Glucose Point of Care 104 (65-105)
[2019-11-23] MEDS: POTASSIUM CHLORIDE 20 MEQ TABLET.ER PO (08:29)
[2019-11-23] MEDS: predniSONE 5 MG TABLET PO (08:29)
[2019-11-23] MEDS: DULoxetine HCL 60 MG CAPSULE.DR 120 MG PO (08:30)
[2019-11-23] MEDS: buPROPion HCL SR (12HR) 100 MG TABCR PO ×2 (08:30→21:25)
[2019-11-23] MEDS: DOCUSATE SODIUM 100 MG CAPSULE PO ×2 (08:30→21:25)
[2019-11-23] MEDS: calcitrioL 0.25 MCG CAPSULE 1 MCG PO (08:30)
[2019-11-23] MEDS: METHOTREXATE 2.5 MG TAB (*CHEMO) 20 MG PO (08:30)
[2019-11-23] MEDS: FERROUS SULFATE 324 MG TABLET PO (08:30)
[2019-11-23] MEDS: MIRABEGRON 50 MG ER TABLET PO (08:31)
[2019-11-23] MEDS: oxyCODONE/ACETAMINOPHEN 5-325 MG TABLET 2 TABLET PO ×2 (10:01→23:38)
--- NOTE | 2019-11-23 13:47 | PCOTNOTE ---
Attempted to see patient, both attempts patient c/o significant pain and declined, I just really don't feel like it today. RN present. Will continue plan of care tomorrow, 11/24/2019.
[2019-11-23 13:55] LABS: Glucose Point of Care 159 (65-105)
--- NOTE | 2019-11-23 16:16 | PM.IMPN ---
Progress Note: A&P Assessment and Plan (1) Hypotension: Qualifiers: Hypotension type: hypotension due to hypovolemia Qualified Code(s): I95.89 - Other hypotension; E86.1 - Hypovolemia Code(s): I95.9 - Hypotension, unspecified Status: Resolved Assessment and Plan: BP is improved, post op pannus removal. (2) Acute renal injury due to hypovolemia: Code(s): N17.9 - Acute kidney failure, unspecified; E86.1 - Hypovolemia Status: Resolved Assessment and Plan: Creat is normal now (3) Type 2 diabetes mellitus: Qualifiers: Diabetes mellitus residential insulin use: without exterminator helper termite use Diabetes mellitus complication status: with hyperglycemia Qualified Code(s): E11.65 - Type 2 diabetes mellitus with hyperglycemia Code(s): E11.9 - Type 2 diabetes mellitus without complications Status: Acute Assessment and Plan: Moderate sliding scale insulin with Accu-Cheks a.c. HS and hypoglycemia protocol have been ordered. (4) ERROL (obstructive sleep apnea): Code(s): G47.33 - Obstructive sleep apnea (adult) (pediatric) Status: Acute Assessment and Plan: Resume CPAP once the patient's blood pressures have stabilized. (5) Leukocytosis: Qualifiers: Leukocytosis type: leukemoid reaction Qualified Code(s): D72.823 - Leukemoid reaction Code(s): D72.829 - Elevated white blood cell count, unspecified Status: Resolved Assessment and Plan: Stress related, wcc nl now (6) Panniculitis: Code(s): M79.3 - Panniculitis, unspecified Status: Acute Assessment and Plan: POst op hopeful discharge tomorrow pt is ambulating more a feels much better awaiting bowel movement, tolerating a diet concerns about drainage output hopefully home saturday or saturday. 64 year old female with a past medical history of type 2 diabetes mellitus, hypertension, chronic pain morbid obesity status pannus removal, today patient states not feeling well complaints of drainage along her drain and her pain is not controlled, however see denies any fever or chills, patient was seen by surgeon early this morning, will reassess tomorrow be discharged home with home health and wound management Subjective Date/time seen: 11/23/19 16:16 Interval history: 64 year old female with a past medical history of type 2 diabetes mellitus, hypertension, chronic pain morbid obesity status pannus removal, today patient states not feeling well complaints of drainage along her drain and her pain is not controlled, however see denies any fever or chills, patient was seen by surgeon early this morning Review of Systems Review of Systems: All systems reviewed & are unremarkable except as noted in HPI and below Exam Narrative: Exam Narrative: morbidly obese Const: General: no acute distress and uncomfortable HENMT: General nose exam: Normal nares present Eyes: General: appearance normal, both eyes and all related structures Sclera: sclerae normal Neck: Neck: supple Resp: Effort & Inspection: normal respiratory effort Auscultation: clear to auscultation bilaterally Cardio: Rate: regular rate Rhythm: regular rhythm GI: Auscultation: normal bowel sounds Skin: General skin exam: normal color Neuro: Speech: normal speech Sensory Exam: normal sensation Extrem: General: normal to inspection Psych: Affect: Anxious affect present Objective Data Vital Signs Vital Signs: Vital Signs - 24 hr 11/22/19 21:05 11/22/19 21:38 11/23/19 01:58 Temperature 97.4 F L Pulse Rate 70 73 68 Respiratory Rate 16 18 16 Blood Pressure 149/81 H Pulse Oximetry 96 97 95 11/23/19 02:05 11/23/19 05:26 11/23/19 09:28 Temperature 97.2 F L 96.9 F L 96.8 F L Pulse Rate 75 66 84 Respiratory Rate 16 18 20 Blood Pressure 141/84 H 161/81 H 149/83 H Pulse Oximetry 98 100 99 11/23/19 13:32 Temperature 97.3 F L Pulse Rate 76 Respiratory Rate 18 B
[2019-11-23 16:37] LABS: Glucose Point of Care 137 (65-105)
[2019-11-23] MEDS: PANTOPRAZOLE 40 MG TABLET PO (21:25)
[2019-11-23] MEDS: LOVASTATIN 20 MG TABLET PO (21:25)
[2019-11-23] MEDS: traZODone HCL 50 MG TABLET 200 MG PO (21:25)
[2019-11-23 22:07] LABS: Glucose Point of Care 133 (65-105)
[2019-11-24 02:00] VITALS: BP 118/63; PULSE 69; RESP 16; TEMP 36.1; O2SAT 97
[2019-11-24 06:00] VITALS: BP 128/72; PULSE 70; RESP 16; TEMP 36; O2SAT 96
--- NOTE | 2019-11-24 06:31 | WPDPN ---
Progress Note: A&P Assessment and Plan (1) Panniculitis: Code(s): M79.3 - Panniculitis, unspecified Status: Acute Assessment and Plan: Doing well. Will discharge home. Today we had a lengthy discussion about the care. What monitor for. She understands to ambulate regularly. Keep us updated with drain outputs. Any shortness of breath, chest pain, or medical emergency proceed to the emergency room. Answered all of her questions to her satisfaction today. She understands she can call with any questions or concerns. (2) Type 2 diabetes mellitus: Qualifiers: Diabetes mellitus intermodal dispatcher insulin use: without penitentiary use Diabetes mellitus complication status: with hyperglycemia Qualified Code(s): E11.65 - Type 2 diabetes mellitus with hyperglycemia Code(s): E11.9 - Type 2 diabetes mellitus without complications Status: Acute Assessment and Plan: She does have a history of a nuclear stress test on 06/19/2019. Normal. EF 66%. Management per hospitalist. (3) ERROL (obstructive sleep apnea): Code(s): G47.33 - Obstructive sleep apnea (adult) (pediatric) Status: Acute Assessment and Plan: Per Hospitalist. (4) Hypertension: Code(s): I10 - Essential (primary) hypertension Status: Acute Assessment and Plan: Per Hospitalist. (5) Tenderness of right calf: Code(s): M79.661 - Pain in right lower leg Status: Acute Assessment and Plan: Ultrasound negative. Will monitor. (6) Low hemoglobin: Code(s): D64.9 - Anemia, unspecified Status: Acute Assessment and Plan: No signs / symptoms of active bleeding. (7) Hyperlipidemia: Code(s): E78.5 - Hyperlipidemia, unspecified Status: Acute (8) Umbilical hernia: Code(s): K42.9 - Umbilical hernia without obstruction or gangrene Status: Acute Assessment and Plan: Noted on CT Scan (9) History of gastric bypass: Code(s): Z98.84 - Bariatric surgery status Status: Acute (10) Nicotine dependence: Code(s): F17.200 - Nicotine dependence, unspecified, uncomplicated Status: Acute Assessment and Plan: She understands the importance of nicotine avoidance and the risks of continued use. (11) Acute renal injury due to hypovolemia: Code(s): N17.9 - Acute kidney failure, unspecified; E86.1 - Hypovolemia Status: Resolved Assessment and Plan: Resolved. Additional Plan . Time Spent With Patient Time with patient: 15 - 25 minutes Review of Systems Review of Systems: All systems reviewed & are unremarkable except as noted in HPI and below Exam Narrative: Exam Narrative: Abdomen is healing well. No signs of infection. No hematoma. No seroma. Drains serosangenous. Const: General: comfortable, no acute distress, alert and awake; No acute distress Orientation/consciousness: oriented to person HENMT: Head: normal to inspection Ears: external ears normal General nose exam: Normal external nose present Face and sinus: normal facial exam Eyes: General: appearance normal, both eyes and all related structures Periorbital: periorbital findings normal Eyelids: eyelids normal Conjunctivae: conjunctivae normal Neck: Neck: normal visual inspection Chest: Chest palpation & inspection: normal inspection of the chest Resp: Effort & Inspection: normal respiratory effort and able to speak in complete sentences GI: Inspection: normal to inspection Neuro: General: oriented to person Psych: Appearance: grossly normal Mental Status: mental status grossly normal Objective Data Vital Signs Vital Signs: Vital Signs - 24 hr 11/23/19 09:28 11/23/19 13:32 11/23/19 17:25 Temperature 36.0 C L 36.3 C L 36.4 C L Pulse Rate 84 76 94 Respiratory Rate 20 18 18 Blood Pressure 149/83 H 146/79 H 143/61 H Pulse Oximetry 99 99 100 11/23/19 21:22 11/23/19 21:29 11/24/19 02:00 Temperature
--- NOTE | 2019-11-24 06:37 | PM.DS ---
DS: Admitting Diagnosis Admitting Diagnosis Admitting Diagnosis: Panniculitis Essential (primary) hypertension DS: Discharge Diagnosis Discharge Diagnosis (1) Panniculitis: Code(s): M79.3 - Panniculitis, unspecified Status: Acute Assessment and Plan: She was admitted underwent panniculectomy uneventfully. Postoperatively she had some hypotension. She was completely asymptomatic throughout this. We continued to monitor and treated with fluids. She remained stable and was getting out of bed at which time she felt a pop and had increased bleeding from the drains which quickly stopped. During the hospitalization she did receive 1 unit of blood. The hospitalist was involved for medical management. She did see physical therapy and occupational therapy while in the facility. At the time of discharge she was doing well. Ambulating. Pain controlled. Tolerating diet. We have arranged for discharge care. The patient feel safe to be discharged home with her family. (2) Hypotension: Qualifiers: Hypotension type: hypotension due to hypovolemia Qualified Code(s): I95.89 - Other hypotension; E86.1 - Hypovolemia Code(s): I95.9 - Hypotension, unspecified Status: Resolved (3) Tenderness of right calf: Code(s): M79.661 - Pain in right lower leg Status: Acute Assessment and Plan: Venous Doppler completed which was negative. (4) Type 2 diabetes mellitus: Qualifiers: Diabetes mellitus complication status: with hyperglycemia Diabetes mellitus half-way insulin use: without superintendent terminal use Qualified Code(s): E11.65 - Type 2 diabetes mellitus with hyperglycemia Code(s): E11.9 - Type 2 diabetes mellitus without complications Status: Acute (5) ERROL (obstructive sleep apnea): Code(s): G47.33 - Obstructive sleep apnea (adult) (pediatric) Status: Acute (6) Hypertension: Code(s): I10 - Essential (primary) hypertension Status: Acute (7) Hyperlipidemia: Code(s): E78.5 - Hyperlipidemia, unspecified Status: Acute (8) GERD (gastroesophageal reflux disease): Code(s): K21.9 - Gastro-esophageal reflux disease without esophagitis Status: Acute (9) COPD (chronic obstructive pulmonary disease): Code(s): J44.9 - Chronic obstructive pulmonary disease, unspecified Status: Acute (10) Anxiety: Code(s): F41.9 - Anxiety disorder, unspecified Status: Acute (11) History of gastric bypass: Code(s): Z98.84 - Bariatric surgery status Status: Acute (12) Umbilical hernia: Code(s): K42.9 - Umbilical hernia without obstruction or gangrene Status: Acute (13) Nicotine dependence: Code(s): F17.200 - Nicotine dependence, unspecified, uncomplicated Status: Acute DS: Summary Time Spent with Patient Time attestation: Total time spent providing and/or coordinating discharge services: 15 minutes Exam Narrative: Exam Narrative: Abdomen is healing well. No signs of infection. No hematoma. No seroma. Drains serosangenous. Const: General: comfortable, no acute distress, alert and awake; No acute distress Orientation/consciousness: oriented to person HENMT: Head: normal to inspection Ears: external ears normal General nose exam: Normal external nose present Face and sinus: normal facial exam Eyes: General: appearance normal, both eyes and all related structures Periorbital: periorbital findings normal Eyelids: eyelids normal Conjunctivae: conjunctivae normal Neck: Neck: normal visual inspection Chest: Chest palpation & inspection: normal inspection of the chest Resp: Effort & Inspection: normal respiratory effort and able to speak in complete sentences GI: Inspection: normal to inspection Neuro: General: oriented to person Psych: Appearance: grossly normal Mental Status: mental status grossly normal DS: Data Data Completed and Pending
[2019-11-24] MEDS: GABAPENTIN 300 MG CAPSULE 600 MG PO (06:49)
[2019-11-24 08:04] LABS: Glucose Point of Care 126 (65-105)
[2019-11-24] MEDS: buPROPion HCL SR (12HR) 100 MG TABCR PO (08:37)
[2019-11-24] MEDS: POTASSIUM CHLORIDE 20 MEQ TABLET.ER PO (08:37)
[2019-11-24] MEDS: predniSONE 5 MG TABLET PO (08:37)
[2019-11-24] MEDS: MIRABEGRON 50 MG ER TABLET PO (08:38)
[2019-11-24] MEDS: calcitrioL 0.25 MCG CAPSULE 1 MCG PO (08:38)
[2019-11-24] MEDS: FERROUS SULFATE 324 MG TABLET PO (08:38)
[2019-11-24] MEDS: DULoxetine HCL 60 MG CAPSULE.DR 120 MG PO (08:38)
[2019-11-24] MEDS: ONDANSETRON INJ 4 MG/2 ML VIAL IV PUSH (08:39)
[2019-11-24] MEDS: oxyCODONE/ACETAMINOPHEN 5-325 MG TABLET 1 TABLET PO (08:39)
[2019-11-24] MEDS: DOCUSATE SODIUM 100 MG CAPSULE PO (08:40)
[2019-11-24 10:00] VITALS: BP 127/64; PULSE 77; RESP 16; TEMP 36.2; O2SAT 97
--- NOTE | 2019-11-24 10:29 | PCPTNOTE ---
Attempted to see Pt at 10:15 for therapy. Pt stated she had just returned to bed and requested therapy to come back a little later. Will attempt again.
[2019-11-24 11:30] LABS: Glucose Point of Care 122 (65-105)
--- NOTE | 2019-11-24 13:16 | PM.IMPN ---
Progress Note: A&P Assessment and Plan (1) Hypotension: Qualifiers: Hypotension type: hypotension due to hypovolemia Qualified Code(s): I95.89 - Other hypotension; E86.1 - Hypovolemia Code(s): I95.9 - Hypotension, unspecified Status: Resolved Assessment and Plan: BP is improved, post op pannus removal. (2) Acute renal injury due to hypovolemia: Code(s): N17.9 - Acute kidney failure, unspecified; E86.1 - Hypovolemia Status: Resolved Assessment and Plan: Creat is normal now (3) Type 2 diabetes mellitus: Qualifiers: Diabetes mellitus detention insulin use: without extermination inspector use Diabetes mellitus complication status: with hyperglycemia Qualified Code(s): E11.65 - Type 2 diabetes mellitus with hyperglycemia Code(s): E11.9 - Type 2 diabetes mellitus without complications Status: Acute Assessment and Plan: Moderate sliding scale insulin with Accu-Cheks a.c. HS and hypoglycemia protocol have been ordered. (4) ERROL (obstructive sleep apnea): Code(s): G47.33 - Obstructive sleep apnea (adult) (pediatric) Status: Acute Assessment and Plan: Resume CPAP once the patient's blood pressures have stabilized. (5) Leukocytosis: Qualifiers: Leukocytosis type: leukemoid reaction Qualified Code(s): D72.823 - Leukemoid reaction Code(s): D72.829 - Elevated white blood cell count, unspecified Status: Resolved Assessment and Plan: Stress related, wcc nl now (6) Panniculitis: Code(s): M79.3 - Panniculitis, unspecified Status: Acute Assessment and Plan: POst op hopeful discharge tomorrow pt is ambulating more a feels much better awaiting bowel movement, tolerating a diet concerns about drainage output hopefully home saturday or saturday. 64 year old female with a past medical history of type 2 diabetes mellitus, hypertension, chronic pain morbid obesity status pannus removal, today patient states not feeling well complaints of drainage along her drain and her pain is not controlled, however she denies any fever or chills, patient was again seen by her surgeon early this morning, Today patient states the pain is much better and comfort being discharged, patient will follow-up by home health and wound nurse to help her with her wound and dressing. will follow-up with her surgeon as scheduled Subjective Date/time seen: 11/24/19 13:16 Interval history: 64 year old female with a past medical history of type 2 diabetes mellitus, hypertension, chronic pain morbid obesity status pannus removal, today patient states not feeling well complaints of drainage along her drain and her pain is not controlled, however she denies any fever or chills, patient was again seen by her surgeon early this morning, Today patient states the pain is much better and comfort being discharged, patient will follow-up by home health and wound nurse to help her with her wound and dressing. will follow-up with her surgeon as scheduled Review of Systems Review of Systems: All systems reviewed & are unremarkable except as noted in HPI and below Exam Narrative: Exam Narrative: morbidly obese Const: General: comfortable and no acute distress HENMT: General nose exam: Normal nares present Mouth: Yes moist mucous membranes Eyes: General: appearance normal, both eyes and all related structures Sclera: sclerae normal Neck: Neck: supple Resp: Effort & Inspection: normal respiratory effort Auscultation: clear to auscultation bilaterally Cardio: Rate: regular rate Rhythm: regular rhythm GI: Auscultation: normal bowel sounds Skin: General skin exam: normal color Neuro: Speech: normal speech Sensory Exam: normal sensation Extrem: General: normal to inspection Psych: Affect: Anxious affect present Objective Data Vital Signs Vital Signs: Vital Signs - 24 hr 11/23/19 13:32 11/23/19 17:25 11/23/19 21:22 T
--- NOTE | 2019-11-24 13:44 | PCCCNOTE ---
On 11/24/19, the student, Jeannine Dalton, provided care and completed [facility] documentation on this patient. I have reviewed the student's documentation and agree with the findings.
== END 2019-11-24 12:57 | disposition home health service (06) | DRG 315 ==
LOC: ANHSURGERY 15:41 → ANHIMU 15:41 → ANH2MED 11-19 18:23
PROVIDERS: Family Medicine; Hospitalist; Internal Medicine; Admitting Provider Surgery Plastic and Reconstructive Surgery; PCP Internal Medicine; Visit Provider Surgery Plastic and Reconstructive Surgery
PROC: 0JB80ZZ Excision of Abdomen Subcutaneous Tissue and Fascia, Open Approach (ICD-10-PCS; CPT 15830; principal; 2019-11-17 08:30)
DX: I95.89 Other hypotension (principal); N17.9 Acute kidney failure, unspecified; E86.1 Hypovolemia; M79.3 Panniculitis, unspecified; D72.823 Leukemoid reaction; E11.65 Type 2 diabetes mellitus with hyperglycemia; G47.33 Obstructive sleep apnea (adult) (pediatric); I10 Essential (primary) hypertension; G89.29 Other chronic pain; Z98.84 Bariatric surgery status; E66.9 Obesity, unspecified; Z68.37 Body mass index [BMI] 37.0-37.9, adult; M79.661 Pain in right lower leg; D64.9 Anemia, unspecified; F17.210 Nicotine dependence, cigarettes, uncomplicated; K42.9 Umbilical hernia without obstruction or gangrene; L40.50 Arthropathic psoriasis, unspecified; J44.9 Chronic obstructive pulmonary disease, unspecified; K21.9 Gastro-esophageal reflux disease without esophagitis; E78.5 Hyperlipidemia, unspecified; R79.89 Other specified abnormal findings of blood chemistry; F32.9 Major depressive disorder, single episode, unspecified; F41.9 Anxiety disorder, unspecified; Z98.890 Other specified postprocedural states; Z79.899 Other long term (current) drug therapy; Z88.0 Allergy status to penicillin; Z88.8 Allergy status to other drugs, medicaments and biological substances
CPT/HCPCS: 36415; 36430; 80048; 80053; 80307; 81001; 83605; 85014; 85018; 85025; 85027; 85055; 86850; 86900; 86901; 86923; 93005; 93971; 97110; 97116; 97161; 97165; 97530; 97535; 99199; A9270; G0378; J0171; J0330; J1170; J1650; J1720; J2250; J2270; J2405; J2704; J3010; J7050; J7120; J7512; P9016

== ENCOUNTER → 2020-01-20 08:11 | Outpatient (CLI) | payer MEDICARE, SELFPAY ==
--- NOTE | ~2020-01-20 | XR_ITS ---
XR knee RT 2V 01/20/2020 08:36 Indication: Right knee pain Procedure: 3 views right knee Comparison: No prior studies for comparison. Findings: There is a right knee arthroplasty. There are long stem femoral and tibial components. No s ignificant joint effusion. No acute fracture or traumatic malalignment. No foreign bodies. Impression: 1: No acute fracture. Reviewed, dictated and finalized at location B. Impression: 1: No acute fracture.
== END ==
PROVIDERS: PCP Internal Medicine; Visit Provider Nurse Practitioner Family
DX: M25.561 Pain in right knee (principal)
CPT/HCPCS: 73560

== ENCOUNTER 2023-04-02 14:31 | Outpatient (CLI) | payer MEDICARE, SELFPAY ==
[2023-04-02 14:55] LABS: Basophils Absolute Auto 0.1 K/mm3 (0.0-0.1); Basophils Percent Auto 0.4 % (0.2-1.2); Eosinophils Absolute Auto 0.1 K/mm3 (0-0.3); Eosinophils Percent Auto 1.3 % (0-4.4); Hematocrit 44.4 % (37.0-47.0); Immature Granulocyte Absolute 0.03 K/mm3 (0.00-0.031); Immature Granulocyte Percent A 0.3 % (0-0.5); Lymphocytes Absolute Auto 2.37 K/mm3 (0.9-3.2); Lymphocytes Percent Auto 21.3 % (18.3-44.2); Mean Corpuscular HGB Conc 31.5 g/dl (32-36); Mean Corpuscular Hemoglobin 28.2 pg (26-34); Mean Corpuscular Volume 89.3 fl (80-100); Mean Platelet Volume 11.2 fl (7.4-10.4); Monocytes Absolute Auto 0.9 K/mm3 (0.1-0.6); Monocytes Percent Auto 8.2 % (2.6-8.5); Neutrophils Absolute Auto 7.6 K/mm3 (1.3-6.7); Neutrophils Percent Auto 68.5 % (45.5-73.1); Platelet Count Result 240 k/mm3 (150-375); Red Blood Count 4.97 M/mm3 (4.2-5.4); Red Cell Distribution Width 16.3 % (11.5-14.5); White Blood Count 11.1 K/mm3 (4.5-10.0)
[2023-04-02 16:42] LABS: Alanine Aminotransferase 18 U/L (6-35); Albumin Level 4.1 g/dL (3.5-5.1); Alkaline Phosphatase 239 U/L (38-126); Anion Gap 5 mmol/L (8-16); Aspartate Amino Transferase 27 U/L (14-36); Bilirubin,Total 0.6 mg/dL (0.2-1.3); Blood Urea Nitrogen 7 mg/dL (7-17); CRP 1.1 mg/dL (<1.0); Calcium 11.1 mg/dL (8.4-10.2); Carbon Dioxide 34 mmol/L (22-30); Chloride 101 mmol/L (98-107); Estimated Glomerular Filt Rate > 60; Glucose 136 mg/dL (65-110); Lactate Dehydrogenase 199 U/L (120-246); Potassium 3.9 mmol/L (3.4-5.0); Sodium 140 mmol/L (137-145)
== END 2023-04-02 14:32 | disposition home or self-care (01) ==
LOC: ANHLAB 14:38
PROVIDERS: PCP Internal Medicine; Visit Provider Internal Medicine Hematology & Oncology
DX: D72.829 Elevated white blood cell count, unspecified (principal)
CPT/HCPCS: 36415; 80053; 83615; 85025; 86140; 88184

== ENCOUNTER 2023-04-17 15:02 | Outpatient (CLI) | payer MEDICARE, SELFPAY ==
[2023-04-17 17:15] LABS: Immunoglobulin A 245 mg/dL (70-400); Immunoglobulin G 1530 mg/dL (700-1600); Immunoglobulin M 258 mg/dL (40-230)
[2023-04-20 08:34] LABS: Kappa\\Lambda Light Chains 1.11 (0.26-1.65); Lambda Light Chain 46.3 mg/L (5.7-26.3)
[2023-04-20 21:00] LABS: Albumin 3.6 g/dL (3.8-4.8); Alpha 1 Globulin 0.3 g/dL (0.2-0.3); Alpha 2 Globulin 0.8 g/dL (0.5-0.9); Beta 1 Globulin 0.5 g/dL (0.4-0.6); Gamma Globulin 1.7 g/dL (0.8-1.7); Protein, Total 7.3 g/dL (6.1-8.1)
== END 2023-04-17 15:03 | disposition home or self-care (01) ==
LOC: ANHLAB 15:05
PROVIDERS: PCP Internal Medicine; Visit Provider Internal Medicine Hematology & Oncology
DX: R77.9 Abnormality of plasma protein, unspecified (principal)
CPT/HCPCS: 36415; 82784; 83883; 84155; 84165

== ENCOUNTER 2023-04-26 08:47 | Outpatient (CLI) | payer MEDICARE, SELFPAY ==
--- NOTE | ~2023-04-26 | US_ITS ---
EXAMINATION: US biopsy lymph node DATE: 04/26/2023 10:07 INDICATION: Lymphadenopathy including FDG avid left axillary lymph nodes TECHNIQUE: The procedure including the risks and benefits was discussed with the patient. Risks discu ssed included bleeding and infection. The patient understood the risks and agreed to proceed. The sk in overlying the left axilla was prepped and draped in usual sterile fashion. Anesthetic was adminis tered with 1% lidocaine subcutaneously. An 18 gauge core biopsy needle was advanced under continuous ultrasound observation to the largest visible left axillary lymph node. 9 core biopsy specimens wer e obtained in the 6 placed in PMI media and 3 in formalin. The needle was removed and the entry site was cleaned and dressed. Post procedure ultrasound demonstrated no hemorrhage. FINDINGS: Ultrasound images demonstrate biopsy needle advanced into a 2.3 x 1.4 x 0.9 cm left axillar y lymph node. IMPRESSION: 1. Successful Ultrasound-guided biopsy of 2.3 x 1.4 x 0.9 cm left axillary lymph node. Reviewed, dictated and finalized at location A. IFIED HOME HEALTH AIDE IMPRESSION: 1. Successful Ultrasound-guided biopsy of 2.3 x 1.4 x 0.9 cm left axillary lymp h node.
== END 2023-04-26 08:48 | disposition home or self-care (01) ==
PROVIDERS: PCP Internal Medicine; Visit Provider Internal Medicine Hematology & Oncology
DX: R59.1 Generalized enlarged lymph nodes (principal); C82.84 Other types of follicular lymphoma, lymph nodes of axilla and upper limb
CPT/HCPCS: 38505; 76942; 88305; 88341; 88342

== ENCOUNTER 2023-05-31 11:04 | Outpatient (CLI) | payer MEDICARE, SELFPAY ==
[2023-05-31 11:35] LABS: Basophils Percent Auto 0.5 % (0.2-1.2); Eosinophils Absolute Auto 0.1 K/mm3 (0-0.3); Eosinophils Percent Auto 1.2 % (0-4.4); Hematocrit 43.4 % (37.0-47.0); Hemoglobin 13.8 g/dL (12.0-15.0); Immature Granulocyte Absolute 0.03 K/mm3 (0.00-0.031); Immature Granulocyte Percent A 0.4 % (0-0.5); Lymphocytes Absolute Auto 2.08 K/mm3 (0.9-3.2); Lymphocytes Percent Auto 25.6 % (18.3-44.2); Mean Corpuscular HGB Conc 31.8 g/dl (32-36); Mean Corpuscular Hemoglobin 28.7 pg (26-34); Mean Corpuscular Volume 90.2 fl (80-100); Mean Platelet Volume 11.2 fl (7.4-10.4); Monocytes Absolute Auto 0.5 K/mm3 (0.1-0.6); Monocytes Percent Auto 6.3 % (2.6-8.5); Neutrophils Absolute Auto 5.4 K/mm3 (1.3-6.7); Platelet Count Result 192 k/mm3 (150-375); Red Blood Count 4.81 M/mm3 (4.2-5.4); Red Cell Distribution Width 18.5 % (11.5-14.5); White Blood Count 8.1 K/mm3 (4.5-10.0)
[2023-05-31 11:46] LABS: Anion Gap 2 mmol/L (8-16); Blood Urea Nitrogen 10 mg/dL (7-17); Calcium 10.8 mg/dL (8.4-10.2); Carbon Dioxide 34 mmol/L (22-30); Chloride 104 mmol/L (98-107); Estimated Glomerular Filt Rate > 60; Glucose 166 mg/dL (65-110); Potassium 4.1 mmol/L (3.4-5.0); Sodium 140 mmol/L (137-145)
[2023-05-31 11:56] LABS: INR 0.9
[2023-05-31 11:58] LABS: Partial Thromboplastin Time 28.6 SECONDS (22.3-36.8)
[2023-05-31 12:04] LABS: Large Platelets Present
[2023-05-31 12:05] LABS: Schistocytes None Seen (NORMAL)
== END 2023-05-31 11:05 | disposition home or self-care (01) ==
LOC: ANHSURGERY 11:09
PROVIDERS: Anesthesiology; PCP Internal Medicine; Visit Provider Surgery
DX: C82.90 Follicular lymphoma, unspecified, unspecified site (principal); E11.9 Type 2 diabetes mellitus without complications; Z01.818 Encounter for other preprocedural examination
CPT/HCPCS: 36415; 80048; 85025; 85610; 85730

== ENCOUNTER 2023-06-03 01:59 | Day surgery (SDC) | payer MEDICARE, SELFPAY ==
[2023-05-30 13:50] VITALS: BMI 35.5
--- NOTE | 2023-05-30 16:13 | PC.NURSE ---
Report to the Outpatient Waiting Room, entrance under the green pavilion located off [facility], at time __8:00AM on date _06/03/23 . Planned Procedure Time: _10:00AM . Time changes happen often and if your time is changed the preop area will call you the afternoon before. - You and your visitor will be asked to self-screen and do not enter if you have any COVID symptoms. - A mask is optional within the hospital at this time. Patients may have clear liquids (water, carbonated beverages, clear teas, apple juice) until 3 hours prior to surgery with a maximum of 20 ounces. - No food from midnight until time of surgery. Take the following medications with a SIP of water the morning of surgery: ___DULOXETINE, GABAPENTIN, PREDNISONE DO NOT STOP ANY OF YOUR OTHER PRESCRIPTION MEDICATIONS PRIOR TO SURGERY ?EXCEPT THE FOLLOWING Medications to discontinue per physician NONE Date to take last dose Please no make-up, nail ukrainian, hairspray, perfume, deodorant, or body powder the day of surgery. No jewelry (including any body piercings) or valuables the day of surgery, leave them at home. Please take a shower or bath the night before, or the morning of, surgery with an antibacterial soap. Wear comfortable, loose fitting clothing. - Jewelry must be removed prior to entering the operating room. Rings and piercings that are not removed may be cut off. - The hospital will not accept responsibility for valuables. - Please leave all valuables, including medications, at home the day of surgery. If you are going home after surgery, a licensed tractor trailer driver must drive you home. - NO public transportation without another adult if you receive anesthesia. - We recommend that an adult stay with you for 24 hours following discharge. - We also recommend that you do not drive, make important decision, drink alcoholic beverages, or take any drugs that were not prescribed by your health care provider for at least 24 hours after your discharge time. BRING PAIN STIMULATOR REMOTE TO HOSPITAL. Follow any additional instructions given to you from your surgeon. If you or anyone in your household have experienced Covid symptoms in the past week, please notify your surgeon or the nurse liaison at the phone number below for possible testing. Telephone instructions given to ___PATIENT and asked if any additional questions and then verbalized understanding. Patient advised to call surgeon office or pre surgery nurse liaison [phone] if any additional questions.
--- NOTE | ~2023-06-03 | XR_ITS ---
EXAMINATION: XR fl guide central line place DATE: 06/03/2023 10:57 INDICATION: Port placement. TECHNIQUE: 2 intraoperative fluoroscopic views of the chest were obtained. I was not present. Fluoros copy exposure time was 15 seconds. COMPARISON: Chest radiograph 06/03/23 FINDINGS: There is a right subclavian port with tip in superior vena cava. IMPRESSION: 1. Port tip in superior vena cava. Reviewed, dictated and finalized at location A. BILITATION ENGINEER
--- NOTE | ~2023-06-03 | XR_ITS ---
EXAMINATION: XR chest port-a-cath/central DATE: 06/03/2023 11:25 INDICATION: Port placement. TECHNIQUE: A single frontal view of the chest was obtained. COMPARISON: Fluoroscopy 06/03/23 FINDINGS: There is no pneumonia, pleural effusion, or pneumothorax. The heart size is normal. There i s a right subclavian port with tip in superior vena cava. There is displacement of the catheter betwe en the clavicle and first rib. IMPRESSION: 1. Port tip in the superior vena cava. Displacement of the catheter between the clavicle and first ri b is a sign of increased catheter fracture risk. Reviewed, dictated and finalized at location A. NCER IMPRESSION: 1. Port tip in the superior vena cava. Displacement of the catheter between the clavicle and first rib is a sign of increased catheter fracture risk.
[2023-06-03 08:15] VITALS: BP 141/92; PULSE 85; RESP 16; TEMP 35.9; O2SAT 99
[2023-06-03] MEDS: LACTATED RINGERS 1,000 ML 30 ML IV CONT (08:37)
[2023-06-03 08:42] LABS: Glucose Point of Care 167 mg/dl (65-105)
--- NOTE | 2023-06-03 09:30 | WPDANESEPPF ---
Anes - Initial Pre Proc Eval Procedure: Operation Date: 06/03/23 10:00 Proposed Procedures p Insertion Tisha Cath - Jose De Jesus Figueroa MD Date/Time: 06/03/23 09:30 Surgeon: Jose De Jesus Figueroa MD Pre Op Diagnosis: follicular lymphoma Patient Data Age: 68 Gender: F Height: 1.7 m Weight: 98.8 kg Last Vital Signs Temp 96.6 F L 06/03/23 08:15 Pulse 85 06/03/23 08:15 Resp 16 06/03/23 08:15 BP 141/92 H 06/03/23 08:15 Pulse Ox 99 06/03/23 08:15 O2 Del Method Room Air 06/03/23 08:15 Allergies Allergy/AdvReac Type Severity Reaction Status Date / Time Penicillins Allergy Mild Swelling Verified 06/03/23 08:07 of Lip/Tongue/Throat metformin AdvReac Severe Nausea and Verified 06/03/23 08:07 Vomiting Home Medications Medication Instructions Recorded Confirmed Type baclofen 10 mg tablet 10 mg PO TID PRN Muscle Spasm 11/03/19 05/30/23 History calcitriol 0.25 mcg capsule 0.25 mcg PO DAILY 11/03/19 05/30/23 History duloxetine 60 mg capsule,delayed 120 mg PO DAILY 11/03/19 05/30/23 History release folic acid 1 mg tablet 1 mg PO QAM 11/03/19 05/30/23 History gabapentin 600 mg tablet 600 mg PO TID 11/03/19 05/30/23 History ixekizumab 80 mg/mL subcutaneous 80 mg subcut MONTHLY 11/03/19 05/30/23 History auto-injector (Taltz Autoinjector) lisinopril 20 1 tablet PO QAM 11/03/19 05/30/23 History mg-hydrochlorothiazide 25 mg tablet lovastatin 20 mg tablet 20 mg PO HS 11/03/19 05/30/23 History methotrexate sodium 2.5 mg tablet 20 mg PO WEEKLY 11/03/19 05/30/23 History nystatin 100,000 unit/gram topical 1 applic topical BID PRN Rash 11/03/19 05/30/23 History powder (Nystop) omeprazole 20 mg capsule,delayed 20 mg PO HS 11/03/19 05/30/23 History release prednisone 5 mg tablet 5 mg PO QAM 11/03/19 05/30/23 History ondansetron HCl 4 mg tablet 4 mg PO Q6H PRN nausea and 11/04/19 05/30/23 Rx (Zofran) vomiting #30 tabs cholecalciferol (vitamin D3) 1,250 1,250 mcg PO WEEKLY 05/30/23 05/30/23 History mcg (50,000 unit) capsule dapagliflozin propanediol 5 mg 5 mg PO QAM 05/30/23 05/30/23 History tablet (Farxiga) docusate sodium 100 mg capsule 200 mg PO DAILY 05/30/23 05/30/23 History (Colace) quetiapine 100 mg tablet 100 mg PO HS 05/30/23 05/30/23 History sulfasalazine 500 mg tablet 500 mg PO BID 05/30/23 05/30/23 History vortioxetine 10 mg tablet 10 mg PO HS 05/30/23 05/30/23 History (Trintellix) zolpidem 10 mg tablet 10 mg PO HS 05/30/23 05/30/23 History Laboratory Tests 06/03/23 08:39 POC Capillary Glucose 167 H mg/dl (65-105) Patient hx anesthesia problems: none Family hx anesthesia problems: none Results Review: All pre-operative results and documents have been reviewed as part of the pre-operative evaluation. [facility] Past Medical History Medical History (Updated 05/22/23 @ 17:50 by Venkatesh Bolanos MD) Anxiety COPD (chronic obstructive pulmonary disease) Depression GERD (gastroesophageal reflux disease) History of tobacco use Hyperlipidemia Hypertension Morbid obesity With 120 lb weight loss following gastric bypass surgery Obstructive sleep apnea on CPAP ERROL (obstructive sleep apnea) Psoriasis Psoriatic arthritis Surgical History Surgical History Gastric bypass status for obesity 2016 History of bilateral breast reduction surgery History of bladder repair surgery Social History Social History Social History: Patient reported being a former smoker. However her Continine testing from 11/17/2019 was positive. Patient is at risk poor wound healing with continued tobacco use. Smoking packs per day: 1 Smoking cigarettes per day: 20.0 Years smoked: 34 Smoking pack-years: 34.00 Smoking status: Current every day smoker Tobacco type: cigarettes Second hand tobacco smoke exposure: No Additional smoking ass
--- NOTE | 2023-06-03 10:02 | PM.IMHP ---
H&P: HPI History of Present Illness Date/Time: 06/03/23 10:02 Chief Complaint: Lymphoma Narrative: Pt recently dx with lymphoma after left axillary LN biopsy. She needs placement of a portacatheter for chemo tx. No prior hx of other cancers. No prior central line placement in SC or IJ veins. Review of Systems Review of Systems: The remainder of the review of systems to include constitutional, HEENT, cardiovascular, respiratory, GI, , integumentary, musculoskeletal, endocrine, immunologic, hematologic, psychiatric, and neurologic are all negative except for which is mentioned above in the HPI. [facility] Past Medical History Medical History (Updated 05/22/23 @ 17:50 by Venkatesh Bolanos MD) Anxiety COPD (chronic obstructive pulmonary disease) Depression GERD (gastroesophageal reflux disease) History of tobacco use Hyperlipidemia Hypertension Morbid obesity With 120 lb weight loss following gastric bypass surgery Obstructive sleep apnea on CPAP ERROL (obstructive sleep apnea) Psoriasis Psoriatic arthritis Surgical History Surgical History Gastric bypass status for obesity 2015 History of bilateral breast reduction surgery History of bladder repair surgery Social History Social History Social History: Patient reported being a former smoker. However her Continine testing from 11/17/2019 was positive. Patient is at risk poor wound healing with continued tobacco use. Smoking packs per day: 1 Smoking cigarettes per day: 20.0 Years smoked: 34 Smoking pack-years: 34.00 Smoking status: Current every day smoker Tobacco type: cigarettes Second hand tobacco smoke exposure: No Additional smoking assessment comments: CURRENTLY SMOKING 1/2 PACK/DAY Substance use type: does not use Last use: 2018 Living arrangements: with family Additional living arrangements comments: [place] Gender identity (if verbalized by the patient): Female Spiritual care concerns: No Meds Home Medications and Allergies Home Medications Medication Instructions Recorded Confirmed Type baclofen 10 mg tablet 10 mg PO TID PRN Muscle Spasm 11/03/19 05/30/23 History calcitriol 0.25 mcg capsule 0.25 mcg PO DAILY 11/03/19 05/30/23 History duloxetine 60 mg capsule,delayed 120 mg PO DAILY 11/03/19 05/30/23 History release folic acid 1 mg tablet 1 mg PO QAM 11/03/19 05/30/23 History gabapentin 600 mg tablet 600 mg PO TID 11/03/19 05/30/23 History ixekizumab 80 mg/mL subcutaneous 80 mg subcut MONTHLY 11/03/19 05/30/23 History auto-injector (Taltz Autoinjector) lisinopril 20 1 tablet PO QAM 11/03/19 05/30/23 History mg-hydrochlorothiazide 25 mg tablet lovastatin 20 mg tablet 20 mg PO HS 11/03/19 05/30/23 History methotrexate sodium 2.5 mg tablet 20 mg PO WEEKLY 11/03/19 05/30/23 History nystatin 100,000 unit/gram topical 1 applic topical BID PRN Rash 11/03/19 05/30/23 History powder (Nystop) omeprazole 20 mg capsule,delayed 20 mg PO HS 11/03/19 05/30/23 History release prednisone 5 mg tablet 5 mg PO QAM 11/03/19 05/30/23 History ondansetron HCl 4 mg tablet 4 mg PO Q6H PRN nausea and 11/04/19 05/30/23 Rx (Zofran) vomiting #30 tabs cholecalciferol (vitamin D3) 1,250 1,250 mcg PO WEEKLY 05/30/23 05/30/23 History mcg (50,000 unit) capsule dapagliflozin propanediol 5 mg 5 mg PO QAM 05/30/23 05/30/23 History tablet (Farxiga) docusate sodium 100 mg capsule 200 mg PO DAILY 05/30/23 05/30/23 History (Colace) quetiapine 100 mg tablet 100 mg PO HS 05/30/23 05/30/23 History sulfasalazine 500 mg tablet 500 mg PO BID 05/30/23 05/30/23 History vortioxetine 10 mg tablet 10 mg PO HS 05/30/23 05/30/23 History (Trintellix) zolpidem 10 mg tablet 10 mg PO HS 05/30/23 05/30/23 History Allergies Allergy/AdvReac Type Severity Reaction Status Date / Time Penicillins Allergy Mild Swelling
--- NOTE | 2023-06-03 10:06 | WPDHPUPDATE1 ---
History and Physical Update Update Date/Time: 06/03/23 10:06 History and Physical has been reviewed, including an updated exam of the patient. There are NO changes in the patient's condition. Risks, benefits, and alternatives have been discussed and questions answered. Patient agrees to proceed with procedure.
[2023-06-03] MEDS: ceFAZolin 2 GM/D5W 50 ML 2 GM/50 ML BAG IVPB (10:14)
[2023-06-03] MEDS: BUPivacaine HCL 0.5% PF 30 ML VIAL 10 ML INFILTRATE (10:47)
[2023-06-03] MEDS: LIDO 1%/EPINEPHRINE 1:100,000 20 ML VIAL 10 ML INFILTRATE (10:47)
[2023-06-03] MEDS: HEPARIN SODIUM 5,000 UNITS/ML VIAL 1000 UNITS IRRIGATION (10:48)
[2023-06-03] MEDS: HEPARIN SODIUM 5,000 UNITS/ML VIAL 5000 UNITS IV PUSH (10:49)
[2023-06-03 11:13] VITALS: BP 154/94; PULSE 58; RESP 15; O2SAT 100
--- NOTE | 2023-06-03 11:22 | W.PM.PROC2 ---
Procedure Note - Detailed Date of Procedure 06/03/23 Pre-op Diagnosis follicular lymphoma Post-op Diagnosis Same Procedure Performed Placement of right subclavian vein single-lumen port a catheter with intraoperative fluoroscopy. Surgeon Jose De Jesus Figueroa MD Refinery Technician Joselyn Morrell BRIM CURLER Anesthesia MAC Indications Patient is a 68-year-old female who was recently diagnosed with follicular lymphoma. She is to undergo chemotherapy treatments and presents now for placement of a port catheter for chemotherapy. Findings None significant Description of Procedure After informed consent was obtained patient brought to the operating room she was placed supine position and then IV sedation was administered by anesthesia. The bilateral upper anterior chest and neck was then prepped and draped usual sterile fashion. A time-out was then performed correctly identifying the patient as well as procedure to be performed. She was given perioperative IV antibiotics. I then approached placement of the catheter into the right subclavian vein. I anesthetized right below the medial 3rd of the right clavicle with 1% lidocaine mixed with 0.5% Marcaine. I then made a transverse incision in this area with a scalpel and then dissected down through the subcutaneous tissue electrocautery. I dissected down to the anterior pectoralis fascia and then with blunt finger and electrocautery dissection created the port pocket just below the incision and subcutaneous tissues. Then with the patient in the head-down Trendelenburg position I then used a long 18gauge spinal needle to cannulate the right subclavian vein without difficulty through the incision. There was prompt return of dark venous appearing blood. A guidewire was advanced through the needle into the right subclavian vein subsequently down into the right atrium of the heart. Intraoperative fluoroscopy was used to confirm the placement of tip of the guidewire in the right atrium. I then advanced a dilator breakaway sheath over the guidewire. The guidewire and dilator removed leaving the sheath in place. The 9.6 Martiniquais single-lumen catheter was advanced through the sheath into the right subclavian vein assessment down into the right atrium of the heart via the superior vena cava. The sheath was then torn away leaving the catheter in place. Intraoperative fluoroscopy was used again to visualize the tip of the catheter and then I pulled back on the catheter external to the chest wall into the tip of the catheter was at the atriocaval junction. I then cut the catheter to the appropriate length the skin level and attached to the Smart Port. The port was then secured in subcutaneous port pocket on 3 sides utilizing 3-0 Prolene sutures. The port pocket was irrigated with sterile saline solution hemostasis was excellent. I then accessed the port utilizing Wellington needle and aspirated blood easily and was flushed with heparinized saline solution. I then close incision utilizing interrupted 3-0 Vicryl sutures in the subcutaneous tissues. The skin edges were then approximated utilizing a running subcuticular 4 Monocryl suture. Incision was then cleaned the skin glue was applied. Lastly I accessed the port percutaneously with a Wellington needle and again jose back blood easily and was flushed with 5000units of IV heparin. The patient tolerated the procedure well no complications. All sponges, needles, and instrument counts were correct at the end procedure. EBL was _20__cc. The patient was awakened and taken to recovery in stable and satisfactory condition. Postprocedure chest x-ray was done and I reviewed the image. There is no evidence of pneumothorax and the tip of the catheter was in the distal superior vena cava near the right atrium. Implants 9.6 Martiniquais single-lumen catheter attached to Smart Port right subclavian vein. Estimated Blood Loss 20 Drains No Packing No Pathology None sent Complications No immediate complications
[2023-06-03 11:40] VITALS: BP 137/94; PULSE 67; RESP 16; O2SAT 100
[2023-06-03 11:40] LABS: Glucose Point of Care 155 mg/dl (65-105)
[2023-06-03 12:00] VITALS: BP 135/69; PULSE 78; RESP 14
== END 2023-06-03 12:10 | disposition home or self-care (01) ==
PROVIDERS: PCP Internal Medicine; Visit Provider Surgery
PROC: (CPT 36561; principal; 2023-06-03 10:00)
DX: C82.90 Follicular lymphoma, unspecified, unspecified site (principal); F41.9 Anxiety disorder, unspecified; J44.9 Chronic obstructive pulmonary disease, unspecified; F32.A Depression, unspecified; K21.9 Gastro-esophageal reflux disease without esophagitis; E78.5 Hyperlipidemia, unspecified; I10 Essential (primary) hypertension; G47.33 Obstructive sleep apnea (adult) (pediatric); F17.210 Nicotine dependence, cigarettes, uncomplicated; E66.9 Obesity, unspecified; Z68.34 Body mass index [BMI] 34.0-34.9, adult; Z98.890 Other specified postprocedural states; Z99.89 Dependence on other enabling machines and devices; Z98.84 Bariatric surgery status
CPT/HCPCS: 36561; 36415; 77001; 80048; 82948; 85025; 85610; 85730; C1788; J0690; J1100; J1644; J2250; J2371; J2405; J2704; J3010; J7030; J7120

== ENCOUNTER 2023-06-11 09:22 | Outpatient (CLI) | payer MEDICARE, SELFPAY ==
[2023-06-11 12:50] LABS: Hepatitis B Surface Antigen Negative (Negative)
== END 2023-06-11 09:23 | disposition home or self-care (01) ==
LOC: ANHLAB 09:24
PROVIDERS: PCP Internal Medicine; Visit Provider Internal Medicine Hematology & Oncology
DX: Z11.59 Encounter for screening for other viral diseases (principal)
CPT/HCPCS: 36415; 87340

== ENCOUNTER 2023-06-20 09:01 | Outpatient (CLI) | payer MEDICARE, SELFPAY ==
[2023-06-20 10:31] LABS: Uric Acid 5.1 mg/dL (2.5-7.5)
[2023-06-20 10:53] LABS: Cholesterol 180 mg/dL (0-200); HDL Direct 62 mg/dL; Triglycerides 194 mg/dL (<150)
[2023-06-20 11:05] LABS: LDL Cholesterol Direct 91 mg/dL
[2023-06-20 11:07] LABS: Parathyroid Intact 170.6 pg/mL (7.5-53.5)
[2023-06-20 11:08] LABS: Free T4 Free Thyroxine 1.18 ng/mL (0.78-2.19); Vitamin D 25 Hydroxy 64.3 ng/mL
[2023-06-20 11:12] LABS: Hemoglobin A1C 6.3 % (<5.7)
[2023-06-20 11:25] LABS: Creatinine Urine 27.6 mg/dL
[2023-06-20 11:28] LABS: Appearance Urine Clear (Clear); Bacteria Urine 4+ /hpf; Bilirubin Urine Negative (Negative); Blood Urine Negative (Negative); Color Urine Yellow (Yellow); Glucose Urine UA 3+ mg/dL (Negative); Ketones Urine Negative (Negative); Leukocyte Esterase Ur Negative LEU/UL (Negative); Need Manual Microscopic Reviewed; Nitrate Urine Positive (Negative); Non Pathogenic Casts 0-2; Protein Urine Negative (Negative); RBC Urine 0-2 /hpf (0-2); Specific Grav Ur 1.022 (1.001-1.035); Squamous Epithelial Cell Urine None seen /hpf (Few); pH Urine 6.5 (5.0-9.0)
[2023-06-20 11:29] LABS: Add Urine Microscopic? YES; WBC Urine 0-5 /hpf
[2023-06-20 12:59] LABS: Microalbumin Urine Random < 6.0 mg/L (0-16.7)
== END 2023-06-20 09:02 | disposition home or self-care (01) ==
LOC: ANHLAB 09:04
PROVIDERS: Specialist; PCP Internal Medicine; Visit Provider Internal Medicine
DX: E55.9 Vitamin D deficiency, unspecified (principal); E78.5 Hyperlipidemia, unspecified; E11.9 Type 2 diabetes mellitus without complications; I12.9 Hypertensive chronic kidney disease with stage 1 through stage 4 chronic kidney disease, or unspecified chronic kidney disease; N18.2 Chronic kidney disease, stage 2 (mild); R60.9 Edema, unspecified; N39.0 Urinary tract infection, site not specified; R35.0 Frequency of micturition; E78.41 Elevated Lipoprotein(a); E21.3 Hyperparathyroidism, unspecified; R94.6 Abnormal results of thyroid function studies
CPT/HCPCS: 36415; 80061; 81001; 82043; 82306; 83036; 83970; 84439; 84443; 84550

== ENCOUNTER 2023-12-12 08:47 | Outpatient (CLI) | payer MEDICARE, SELFPAY ==
--- NOTE | ~2023-12-12 | CT_ITS ---
Clinical Indication: Follicular lymphoma CT Scan of the Chest, Abdomen, and Pelvis with Contrast: Technique: Contiguous sections were acquired throughout the chest, abdomen, and pelvis after intraven ous administration of 100 cc of Omnipaque 350. Dose reduction technique was used on this scan by amado hendricks automated exposure control and iterative reconstruction technique. The dose-length product (DL P) was 1596.84 mGy-cm. Findings: There is no evidence of any significant mediastinal, hilar or axillary lymphadenopathy. The mediastin al soft tissues appear normal. There is no evidence of pleural or pericardial effusion. The lungs are clear. No pulmonary nodules or infiltrates are noted. The liver, spleen, pancreas, adrenals and kidneys are within normal limits. Gallbladder sludge and/or small stones present. No evidence of aortic aneurysm. No lymphadenopathy. No bowel obstruction or bowel wall thickening. There is no evidence to suggest acute appendicitis. Sm all fat-containing umbilical hernia noted. There is air within the urinary bladder. Patient is post hysterectomy. No pelvic mass seen. No ascite s. Impression: No pathologic lymphadenopathy seen. Air in urinary bladder is presumably iatrogenic. Correlate clinically. Gallbladder sludge and/or small stones. Reviewed, dictated and finalized at location . Impression: No pathologic lymphadenopathy seen. Air in urinary bladder is presumably iatrogenic. Correlate clinically. Gallbladder sludge and/or small stones.
== END 2023-12-12 08:48 | disposition home or self-care (01) ==
PROVIDERS: PCP Internal Medicine; Visit Provider Internal Medicine Hematology & Oncology
DX: C82.90 Follicular lymphoma, unspecified, unspecified site (principal)
CPT/HCPCS: 71260; 74177; Q9967

== ENCOUNTER 2024-05-04 08:13 | Outpatient (CLI) | payer MEDICARE, SELFPAY ==
--- NOTE | ~2024-05-04 | CT_ITS ---
EXAMINATION: CT chest abdomen pelvis w con DATE: 05/04/2024 09:12 INDICATION: Follicular lymphoma TECHNIQUE: Computed tomography (CT) of the chest, abdomen, and pelvis was performed with 100 mL Omnip aque-350 intravenous contrast. Automated exposure control and iterative reconstruction technique were employed. The dose-length product was 1732.34 mGy-cm. COMPARISON: 12/12/2023 FINDINGS: CHEST CT: Mild discoid atelectasis lingula and minimal dependent atelectasis in the bilateral lower lobes. Hear t size is normal. Atherosclerotic coronary artery calcific lesion. No pericardial or pleural effusion . Mild fusiform aneurysm of the ascending thoracic aorta measuring up to 4.1 cm in maximal diameter. No dissection. No pathologically enlarged thoracic lymphadenopathy. Multinodular goiter with 1.6 cm l ow-attenuation potentially cystic nodule in the right lobe and intrathoracic 1.5 cm partially calcifi ed nodule arising from the lower pole of the right thyroid lobe. Mild to moderate thoracic spondylosi s. T10-T11 laminectomies and partial T11 laminectomy. Spinal stimulator projects of the posterior naman tral canal at the level of T10. 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 Again seen is a 3 cm long small bowel intussusception one of 2 small bowel anastomosis in the left abdomen. It attenuation slu dge and sludge or gallstones in the dependent aspect of the gallbladder. Mild gallbladder wall thicke jose and mild stranding in the pericholecystic fat suspicious for acute cholecystitis. Liver, spleen, pancreas, bilateral adrenal glands and right kidney are normal. There are couple subcentimeter left renal cyst. Moderate amount of stool scattered throughout the colon. Normal appendix. Small amount of gas in the nondependent aspect of the otherwise normal bladder. Correlate clinically for recent inst rumentation or Craft catheterization. The uterus is not identified and has likely been surgically res ected. No free intraperitoneal gas or fluid. No pathologically enlarged abdominal, pelvic or inguinal and adenopathy. Small fat-containing inguinal hernia. Severe lumbar spondylosis with laminectomies a t L4 and L5. Chronic cirrhotic bone island at L4. IMPRESSION: 1. No pathologically enlarged lymphadenopathy or other lesions suspicious for lymphoma or other prima ry or metastatic disease. 2. Sludge versus gallstones and mild wall thickening of the nondilated gallbladder and mild stranding in the pericholecystic fat suspicious for acute versus chronic cholecystitis. 3. Postoperative change of prior Mark-en-Y gastric bypass procedure with persistent nonobstructing sm all bowel intussusception at one of the anastomosis in the left abdomen. 4. Small fat-containing umbilical hernia. 5. Multinodular goiter. Could consider thyroid ultrasound for stratification. 6. Mild diffuse from ascending thoracic aortic aneurysm measuring up to 4.1 cm. Reviewed, dictated and finalized at location B. IC MGR IMPRESSION: 1. No pathologically enlarged lymphadenopathy or other lesions suspicious for l ymphoma or other primary or metastatic disease. 2. Sludge versus gallstones and mild wall thickening of the nondilated gallblad kam and mild stranding in the pericholecystic fat suspicious for acute versus c hronic cholecystitis. 3. Postoperative change of prior Mark-en-Y gastric bypass procedure with persis tent nonobstructing small bowel intussusception at one of the anastomosis in th e left abdomen. 4. Small fat-containing umbilical hernia. 5. Multinodular goiter. Could consider thyroid ultrasound for stratification. 6. Mild diffuse from ascending thoracic aortic aneurysm measuring up to 4.1 cm.
--- NOTE | ~2024-05-04 | XR_ITS ---
EXAMINATION: XR fl port a cath w contrast DATE: 05/04/2024 09:03 INDICATION: Follicular lymphoma. Port dysfunction. TECHNIQUE: I performed fluoroscopy of the chest while the port was injected with contrast. The number of images was 243. The fluoroscopy exposure time was 0.2 minutes. COMPARISON: Chest CT 05/04/2024 FINDINGS: There is a right subclavian port with tip in superior vena cava. Aspiration yields blood re turn. The catheter injects with contrast. The catheter tip abuts the wall of the superior vena cava. IMPRESSION: 1. Successful aspiration and injection of the port catheter. Reviewed, dictated and finalized at location [] ALTERATIONS SEAMSTRESS
[2024-05-04 09:05] LABS: Estimated Glomerular Filt Rate > 60
--- OUTSIDE RECORDS SUMMARY | 2024-05-11 12:04 | XMS_ITS ---
Author Organization [facility] Address [address] [address] [place] [address] Care Team Providers Care Education Analyst Name Role Phone Thom Lee Unavailable [phone] MEDICATIONS Medication SIG (Take, Route, Frequency, Duration) Notes Start Date End Date Status Calcitriol 0.25 MCG Take 1 capsule by ky ut once daily for 90 Active Losartan Potassium 25 MG 1 tablet Orally Once a day for 90 day(s) 04/09/2024 Active SOCIAL HISTORY Sex Assigned At : Social History Observation Description Sex Assigned At Female Encounters Encounter Location Date Provider Diagnosis [facility] [address] [address] 04/09/2024 Lee Tomas PLAN OF TREATMENT Medication Medication Name Sig Start Date Stop Date Notes Calcitriol 0.25 MCG Take 1 capsule by ky ut once daily for 90 Losartan Potassium 25 MG 1 tablet Orally Once a day for 90 day(s) 04/09/2024 Progress Notes * AHSAN HANEYDOB:1955 (69 yo F)Acc No.[id number]:04/09/2024 Patient:??AHSAN HANEY :1955?Age:69 Y?Sex:Fe male Address:[address] [place] [address], [address] * Refills?? Refill Calcitriol Capsule, 0.25 MCG, 90 Capsule, Take 1 capsule by mouth once daily, 90, Refills=0 Start Losartan Potassium Tablet, 25 MG, Orally, 90 Tablet, 1 tablet, Once a day, 90 day(s), Refills=2 * * Date:??
--- OUTSIDE RECORDS SUMMARY | 2024-05-11 12:04 | XMS_ITS ---
Author Organization [facility] Address [address] [facility] [address] [facility] [address] [place] [address] Care Team Providers Care Airplane Flight Attendant Name Role Phone [place] Lee Unavailable [phone] MEDICATIONS Medication SIG (Take, Route, Frequency, Duration) Notes Start Date End Date Status Calcitriol 0.25 MCG Take 1 capsule by mo uth once daily for 90 Active Ergocalciferol 1.25 MG (78483 UT) 1 capsule Orally Once a week for 90 day(s) 04/09/2024 01/04/2025 Active Losartan Potassium 25 MG 1 tablet Orally Once a day for 90 days 04/09/2024 Active SOCIAL HISTORY Sex Assigned At : Social History Observation Description Sex Assigned At Female Encounters Encounter Location Date Provider Diagnosis [place] [facility] [address] [place] [address] 04/09/2024 Lee Tomas PLAN OF TREATMENT Medication Medication Name Sig Start Date Stop Date Notes Calcitriol 0.25 MCG Take 1 capsule by mo uth once daily for 90 Ergocalciferol 1.25 MG (5000 0 UT) 1 capsule Orally Once a week for 90 day(s) 04/09/2024 01/04/2025 Losartan Potassium 25 MG 1 tablet Orally Once a day for 90 days 04/09/2024 Progress Notes * AHSAN HANEYDOB:1955 (69 yo F)Acc No.[id number]:04/09/2024 Patient:??AHSAN HANEY :1955?Age:69 Y?Sex:Fe male Address:[address] [place] [address], [address] * Refills?? Refill Calcitriol Capsule, 0.25 MCG, 90 Capsule, Take 1 capsule by mouth once daily, 90, Refills=0 Refill Losartan Potassium Tablet, 25 MG, Orally, 90, 1 tablet, Once a day, 90 days, Refills=0 Start Ergocalciferol Capsule, 1.25 MG (93707 UT), Orally, 13, 1 capsule, Once a week, 90 day(s), Refills=2 * * Date:??
--- OUTSIDE RECORDS SUMMARY | 2024-05-11 12:05 | XMS_ITS | Patient Health Record ---
Author Organization [facility] Address [address] [facility] [address] [place] [address] Care Team Providers Care Demurrage Man Name Role Phone Lee Tomas Unavailable [phone] REASON FOR REFERRAL No Information MEDICATIONS Medication SIG (Take, Route, Frequency, Duration) Notes Start Date End Date Status Calcitriol 0.25 MCG Take 1 capsule by mo uth once daily for 90 Active Ergocalciferol 1.25 MG (19882 UT) 1 capsule Orally Once a week for 90 day(s) 04/09/2024 01/04/2025 Active Losartan Potassium 25 MG 1 tablet Orally Once a day for 90 days 04/09/2024 Active Potassium Chloride ER 20 MEQ Take 1 tablet by mouth twice daily for 90 Active Dapagliflozin Propanediol 5 MG Take 1 tablet by mouth once daily for 90 Active SOCIAL HISTORY Sex Assigned At : Social History Observation Description Sex Assigned At Female PROBLEMS Problem Type ICD Code Onset Dates Problem Status W/U Status Risk SNOMED Code Notes Problem Type 2 diabetes mellitus with hyperglycemia (E11.65) Active confirmed Hyperglycemia d ue to type 2 diabetes mellitus (033263896777623) Problem Secondary hyperparathyroid ism, not elsewhere classified (E21.1) Active confirmed Secondary hyperparathyroidism (31549157) Problem Chronic kidney disease, stage 2 (mild) (N18.2) Active confirmed Chronic kidne y disease stage 2 (996259483) Problem Renal osteodystrophy (N25.0) Active confirmed Renal osteodyst rophy (53819453) Problem Essential hypertension (I10) Active confirmed Essential hypertension (94247608) Problem Abnormal metabolic state due to diabetes mellitus (E11.9) Active confirmed Abnormal me tabolic state due to diabetes mellitus (999207442) Encounters Encounter Location Date Provider Diagnosis [place] [facility] [address] [facility] [address] [place] [address] 07/05/2023 Lee Tomas Chronic kidney disea se, stage 2 (mild) N18.2 ; Essential hypertension I10 ; Abnormal metabolic state due to diabetes mellitus E11.9 ; Renal osteodystrophy N25.0 ; Secondary hyperparathyroidism, not elsewhere classified E21.1 and Type 2 diabetes mellitus with hyperglycemia E11.65 [facility] [address] [place] [address] 09/25/2023 Lee Tomas Chronic kidney disea se, stage 2 (mild) N18.2 ; Essential hypertension I10 ; Abnormal metabolic state due to diabetes mellitus E11.9 ; Renal osteodystrophy N25.0 ; Secondary hyperparathyroidism, not elsewhere classified E21.1 and Type 2 diabetes mellitus with hyperglycemia E11.65 [facility] [address] [address] 09/27/2023 Lee Tomas Chronic kidney disea se, stage 2 (mild) N18.2 ; Essential hypertension I10 ; Abnormal metabolic state due to diabetes mellitus E11.9 ; Renal osteodystrophy N25.0 ; Secondary hyperparathyroidism, not elsewhere classified E21.1 and Type 2 diabetes mellitus with hyperglycemia E11.65 [facility] [address] [address] 11/22/2023 Lee Tomas Chronic kidney disea se, stage 2 (mild) N18.2 ; Essential hypertension I10 ; Abnormal metabolic state due to diabetes mellitus E11.9 ; Renal osteodystrophy N25.0 ; Secondary hyperparathyroidism, not elsewhere classified E21.1 and Type 2 diabetes mellitus with hyperglycemia E11.65 [facility] [address] [address] 01/08/2024 Lee [facility] [address] [address] 03/25/2024 Lee Tomas Chronic kidney disea se, stage 2 (mild) N18.2 ; Essential hypertension I10 ; Abnormal metabolic state due to diabetes mellitus E11.9 ; Renal osteodystrophy N25.0 ; Secondary hyperparathyroidism, not elsewhere classified E21.1 and Type 2 diabetes mellitus with hyperglycemia E11.65 [facility] [address] [place] [address] 04/08/2024 Leejavan Tomas Chronic kidney disea se, stage 2 (mild) N18.2 ; Type 2 diabetes mellitus with hyperglycemia E11.65 ; Essential hypertension I10 ; Abnormal metabolic state due to diabetes mellitus E11.9 ; Renal osteodystrophy N25.0 and Secondary hyperparathyroidism, not elsewhere classified E21.1 [facility] [address] [facility] [address] [place] [address] 04/09/2024 Lee Tomas [facility] [address] [facility] [address] [place] [address] 04/09/2024 Lee Tomas [facility] [address] [facility] [address] [place] [address] 04/09/2024 Lee Tomas [facility] [place] [facility] [address] [place] [address] 01/01/2024 Lee Tomas ASSESSMENTS Encounter Date Diagnosis Assessment Notes Treatment Notes Treatment Clinical Notes Section Notes 07/05/2023 Chronic kidney disease, stage 2 (mild) (ICD-10 - N18.2) 09/25/2023 Chronic kidney disease, stage 2 (mild) (ICD-10 - N18.2) 09/27/2023 Chronic kidney disease, stage 2 (mild) (ICD-10 - N18.2) 11/22/2023 Chronic kidney disease, stage 2 (mild) (ICD-10 - N18.2) 03/25/2024 Chronic kidney disease, stage 2 (mild) (ICD-10 - N18.2) 04/08/2024 Type 2 diabetes mellitus with hyperglycemia (ICD-10 - E11.65) 04/08/2024 Chronic kidney disease, stage 2 (mild) (ICD-10 - N18.2) 04/08/2024 Essential hypertension (ICD-10 - I10) 03/25/2024 Essential hypertension (ICD-10 - I10) 11/22/2023 Essential hypertension (ICD-10 - I10) 09/27/2023 Essential hypertension (ICD-10 - I10) 07/05/2023 Essential hypertension (ICD-10 - I10) 09/25/2023 Essential hypertension (ICD-10 - I10) 09/25/2023 Abnormal metabolic state due to diabetes mellitus (ICD-10 - E11.9) 07/05/2023 Abnormal metabolic state due to diabetes mellitus (ICD-10 - E11.9) 09/27/2023 Abnormal metabolic state due to diabetes mellitus (ICD-10 - E11.9) 11/22/2023 Abnormal metabolic state due to diabetes mellitus (ICD-10 - E11.9) 03/25/2024 Abnormal metabolic state due to diabetes mellitus (ICD-10 - E11.9) 04/08/2024 Abnormal metabolic state due to diabetes mellitus (ICD-10 - E11.9) 04/08/2024 Renal osteodystrophy (ICD-10 - N25.0) 03/25/2024 Renal osteodystrophy (ICD-10 - N25.0) 11/22/2023 Renal osteodystrophy (ICD-10 - N25.0) 09/27/2023 Renal osteodystrophy (ICD-10 - N25.0) 09/25/2023 Renal osteodystrophy (ICD-10 - N25.0) 07/05/2023 Renal osteodystrophy (ICD-10 - N25.0) 07/05/2023 Secondary hyperparathyroidism , not elsewhere classified (ICD-10 - E21.1) 09/25/2023 Secondary hyperparathyroidism , not elsewhere classified (ICD-10 - E21.1) 09/27/2023 Secondary hyperparathyroidism , not elsewhere classified (ICD-10 - E21.1) 11/22/2023 Secondary hyperparathyroidism , not elsewhere classified (ICD-10 - E21.1) 03/25/2024 Secondary hyperparathyroidism , not elsewhere classified (ICD-10 - E21.1) 04/08/2024 Secondary hyperparathyroidism , not elsewhere classified (ICD-10 - E21.1) 11/22/2023 Type 2 diabetes mellitus with hyperglycemia (ICD-10 - E11.65) 03/25/2024 Type 2 diabetes mellitus with hyperglycemia (ICD-10 - E11.65) 09/27/2023 Type 2 diabetes mellitus with hyperglycemia (ICD-10 - E11.65) 09/25/2023 Type 2 diabetes mellitus with hyperglycemia (ICD-10 - E11.65) 07/05/2023 Type 2 diabetes mellitus with hyperglycemia (ICD-10 - E11.65) PLAN OF TREATMENT No Information
--- OUTSIDE RECORDS SUMMARY | 2024-05-11 12:05 | XMS_ITS ---
Author Organization [facility] Address [address] [place] [address] Care Team Providers Care Clinical Rehabilitation Specialist Name Role Phone [place] Lee Unavailable [phone] MEDICATIONS Medication SIG (Take, Route, Fr equency, Duration) Notes Start Date End Date Status Calcitriol 0.25 MCG Take 1 capsule by mo uth once daily for 90 Active SOCIAL HISTORY Sex Assigned At : Social History Observation Description Sex Assigned At Female Encounters Encounter Location Date Provider Diagnosis [place] [address] [address] 04/09/2024 Lee Tomas PLAN OF TREATMENT Medication Medication Name Sig Start Date Stop Date Notes Calcitriol 0.25 MCG Take 1 capsule by mo uth once daily for 90 Progress Notes * AHSAN HANEYDOB:1955 (69 yo F)Acc No.[id number]:04/09/2024 Patient:??AHSAN HANEY :1955?Age:69 Y?Sex:Fe male Address:[address] [place] [address], [address] * Refills?? Refill Calcitriol Capsule, 0.25 MCG, 90 Capsule, Take 1 capsule by mouth once daily, 90, Refills=0 * * Date:??
--- OUTSIDE RECORDS SUMMARY | 2024-05-11 12:05 | XMS_ITS | CONTINUITY OF CARE DOCUMENT ---
Author Name kesharadha kesharadha Address Unknown Organization [facility] Address [address] [place] [address] [address] [place] [address] Phone [phone] Care Team Providers Care Apron Worker Name Role Phone Carol Bryant MD Unavailable [phone] JENNIFER BREEN, BRETT Unavailable BRETT RODRIGUEZ MD Unavailable PROBLEMS Condition Status Date Provider Notes Cardiovascular screening active Carol napier MD Diabetes, Type 2 active Carol Bryant MD Hyperlipidemia active Carol Bryant MD Hypertension active Carol Bryant MD Preop cardiovasc. examination active Dick Bryant MD Tobacco abuse active Carol Bryant MD Obesity - Morbid active Carol Bryant MD ENCOUNTERS Date Type Provider Location Encounter Diag nosis - In-person encounter Office Visit Carol Bryant MD [facility] - In-person encounter Office Visit Carol Bryant MD [facility] - In-person encounter Office Visit Carol Bryant MD [facility] - In-person encounter Office Visit Carol Bryant MD [facility] Cardiovascular screeningDiabetes, Type 2HyperlipidemiaHypertensi onPreop cardiovasc. examinationTobacco abuseObesity - Morbid VITAL SIGNS Date Observation Value Provider Body Mass Index (Ratio) 35.58 kg/m2 Ave ntmiguelangel Cranmer blood pressure, diastolic 80 mm[Hg] Li nkLogic blood pressure, systolic 128 mm[Hg] Yudith kLogic pulse rate 104 /min [facility] blood pressure, cuff size regular [facility] blood pressure, diastolic 80 mm[Hg] [facility] blood pressure, systolic 128 mm[Hg] Dayne [facility] oxygen saturation, oximetry 95 % [facility] respiratory rate E&M 16 /min Kailee Baron [facility] weight E&M 234 [lb_av] [facility] height E&M 68 [in_i] [facility] Body Mass Index (Ratio) 35.76 kg/m2 Rickey Bryant MD blood pressure, cuff size regular ren Rama blood pressure, diastolic 84 mm[Hg] ren Rama blood pressure, systolic 124 mm[Hg] She erik Rama oxygen saturation, oximetry 96 % Angela Ontiveros respiratory rate E&M 20 /min Angela Rama pulse rate 91 /min Angela Rama weight E&M 235.2 [lb_av] Angela Ontiveros height E&M 68 [in_i] Angela Ontiveros Body Mass Index (Ratio) 38.46 kg/m2 Rickey Bryant MD oxygen saturation, oximetry 94 % Chastity Rosales blood pressure, diastolic 90 mm[Hg] Ch astity Rosales blood pressure, systolic 138 mm[Hg] Marian stity Rosales pulse rate 74 /min Chastity Rosales respiratory rate E&M 16 /min Chastit y Rosales weight E&M 253 [lb_av] Chaity Rosales height E&M 68 [in_i] [facility] Body Mass Index (Ratio) 38.31 kg/m2 Rickey Bryant MD blood pressure, resting Yes [facility] blood pressure, diastolic 70 mm[Hg] Paul varma [place] blood pressure, systolic 110 mm[Hg] Marielle ku [place] respiratory rate E&M 16 /min Holly O'Knaa oxygen saturation, oximetry 98 % Holly O'Kana pulse rate 58 /min [facility] weight E&M 252 [lb_av] [facility]'[place]ana height E&M 68 [in_i] Holly O'Kana ALLERGIES Allergy Name Onset Date Reaction Criticality Status METFORMIN Low Criticality active PENICILLIN Low Criticality active HISTORY OF MEDICATION USE Medication Status Instructions Dates Provider Indications Com ments lovastatin 20 mg tablet active Carol Bryant MD Farxiga 5 mg tablet active Molly Bryant MD duloxetine 60 mg capsule,delayed release(DR/EC) active Take 1 capsule by mouth twice a day Carol Bryant MD #60, 30 days supply, Prescribed by DICK XIONG, Filled 04/11/2019 B-12 COMPLIANCE INJECTION 1000 MCG/ML INJECTION KIT active once a month Carlo Bryant MD clonidine HCl 0.1 mg tablet active as needed Carol Bryant MD B COMPLETE ORAL TABLET active 1 tablet once a day Carol Bryant MD buspirone 10 mg tablet active 1 tablet twice a day Carol Bryant MD calcitriol 0.25 mcg capsule active 1 capsule once a day Carol Bryant MD lisinopril-hydrochl orothiazide 20-25 mg tablet active 1 tablet once a day Carol Bryant MD folic acid 1 mg tablet active 1 tablet once a day Carol Bryant MD omeprazole 20 mg tablet,delayed release (DR/EC) active 1 tablet once a day Carol Bryant MD prednisone 5 mg tablet active Take 1 tablet by mouth once a day Carol Bryant MD #30, 30 days supply, Prescribed by CRISTHIAN TORRES, Filled 05/04/2019 hydrocodone-acetami nophen 7.5-325 mg/15 mL solution active once a day as needed Carol Bryant MD #250, 17 days supply, Filled 05/04/2019 Taltz Autoinjector 80 mg/mL auto-injector active twice a day Caorl Bryant MD #1, 28 days supply, Filled 05/19/2019 fenofibrate nanocrystallized 48 mg tablet completed Take 1 tablet by mouth once a day - Carol Bryant MD #90, 90 days supply, Prescribed by BRETT RODRIGUEZ, Filled 04/11/2019 methotrexate sodium 2.5 mg tablet active Take 8 tablet by mouth once a week Carol Bryant MD #32, 28 days supply, Prescribed by CRISTHIAN TORRES, Filled 03/29/2019 Xtampza ER 18 mg cap,sprinkl,ER12hr( DONT CRUSH) active Take 1 capsule by mouth every twelve hours Carol Bryant MD #60, 30 days supply, Prescribed by KAI VILLASEÑOR, Filled 04/07/2019 trazodone 100 mg tablet active Take 2 tablet by mouth every night Carol Bryant MD #60, 30 days supply, Prescribed by DICK XIONG, Filled 05/17/2019 ergocalciferol (vitamin D2) 1,250 mcg (50,000 unit) capsule active Take 1 capsule by mouth once a week Carol Bryant MD #4, 28 days supply, Prescribed by SIL SANCHEZ, Filled 05/19/2019 gabapentin 600 mg tablet active Take 1 tablet by mouth three times a day as directed Carol Bryant MD #270, 90 days supply, Prescribed by BRETT RODRIGUEZ, Filled 05/25/2019 Myrbetriq 50 mg tablet extended release 24 hr active Take 1 tablet by mouth once a day Carol Bryant MD #90, 90 days supply, Prescribed by BRETT RODRIGUEZ, Filled 03/18/2019 SOCIAL HISTORY Date Observation Value Provider number of years as a smoker 20 a Carol Bryant MD cigarette use yes Carol betancur MD smoking status Current every day smoker S kojo Bryant MD social history E&M S moking History: P atient currently smokes every day. Carol Bryant MD social history reviewed E&M revi ewed - no changes required Carol Bryant MD smoking status Current every day smoker Khanh malu Ontiveros social history E&M S moking History: P atient currently smokes every day. Carol Bryant MD social history reviewed E&M revi ewed - no changes required Carol Bryant MD number of years as a smoker 20 a Kassie Caba cigarette use yes Kassie Caba smoking status Current every day smoker C nellyamie Rosales number of grandchildren Carol Bryant MD social history E&M S moking History: P atient currently smokes every day. Carol Bryant MD social history reviewed E&M revi ewed - no changes required Carol Bryant MD number of years as a smoker 20 a Holly Pascual cigarette use yes Holly Garcia'Kana smoking status Current every day smoker M clifton Pascual FAMILY HISTORY Family Member Condition Mother Family History of Co ronary Artery Disease: INSURANCE PROVIDERS Payer name Policy type / Coverage type [place] green party ID [facility] CHRONIC COMPLETE ASSURE (PPO C-SNP) Medicare [id number] ADVANCE DIRECTIVES Name Date DISCUSSED - NO DECISION MADE TREATMENT PLAN Date Name Performer [id number],C, N uclear Summary 1 . Normal myocardial perfusion imaging after vasodilator stress with Regadenoson. 2 . Normal left ventricular systolic function with a calculated ejection fraction of 66%. 3 . No obvious significant scintigraphic evidence of myocardial ischemia or scar. . ...................................................... ............Carol Bryant MD June 17, 2019 2:53 PM E cho CONCLUSIONS 06/16/19: 1 . Technically difficult study, secondary to poor acoustic windows. There is poor endocardial visualization. Interpretation is b ased on available limited views. Normal left ventricular systolic function. Normal left ventricular size. There is borderline left v entricular hypertrophy. There is E to A wave reversal consistent with impaired LV relaxation. E/E': 5.4. Left ventricular e jection fraction is measured at 65 %. 2 . Normal right ventricular size. Normal right ventricular systolic function. 3 . Mild mitral annular calcification. There is non-specific thickening of the mitral valve leaflets. There is trace physiologic m itral valve regurgitation. 4 . The tricuspid valve is normal in appearance and function. There is trace physiologic tricuspid valve regurgitation. The RA p ressure is estimated at 3.0 mmHg. Estimated peak pulmonary artery systolic pressure is 25.0 mmHg. PFT 06/19/2019 Conclusions: The results are within normal limits. P ulmonary Function Diagnosis: N ormal Pulmonary Function Carol Bryant MD [id number],C, H er updated medication list for this problem includes: Fenofibrate 48 Mg Oral Tablet (Fenofibrate) ..... Take 1 tablet by mouth once daily Carol Bryant MD [id number],C, H er updated medication list for this problem includes: Lisinopril-hydrochlorothiazide 20-25 Mg Oral Tablet (Lisinopril-hydrochlorothiazide) ..... One tab once daily Carol Bryant MD [id number],C, P lanned on having urological procedure at [facility]. Pre op will be made available after an echo is done. Will try to do today. Carol Bryant MD [id number],C, 2 cigs daily T he Patient was reencouraged to stop smoking. Carol Bryant MD Cardiology:On lovast atin Her updated medication list for this problem includes: Fenofibrate 48 Mg Oral Tablet (Fenofibrate) ..... Take 1 tablet by mouth once daily Carol Bryant MD Cardiology:Blood bryce gars controlled per patient, followed by PCP Ludwig padillaergic to meformin with NVD , on [facility] H er updated medication list for this problem includes: Lisinopril-hydrochlorothiazide 20-25 Mg Oral Tablet (Lisinopril-hydrochlorothiazide) ..... One tab once daily Carol Bryant MD Cardiology: 2 cigs daily T he Patient was reencouraged to stop smoking. Carol Bryant MD Cardiology: B P today: 128/80 P rior BP: 124/84 (11/21/2022) Her updated medication list for this problem includes: Clonidine Hcl 0.1 Mg Oral Tablet (Clonidine hcl) ..... As needed Lisinopril-hydrochlorothiazide 20-25 Mg Oral Tablet (Lisinopril-hydrochlorothiazide) ..... One tab once daily Carol Bryant MD Cardiology:July 29, 2023 P lanned on having endo with Dr. Peter at [facility]. Pre op will be made available after an echo is done. Will try to do today. Currently The patient denies episodes of chest pain nausea vomiting diaphoresis shortness of breath or VILLATORO or pounding/palpitations or loss of consciousness or presyncopal events. Intermittently has dizziness. EKG demonstrated no significant change compared to prior. We reviewed patient's prior noninvasive testing all questions were answered to their satisfaction. Carol Bryant MD Cardiology:Had reji alvarado done at [facility]. Apparently had coronary calcification observed on CT, will obtian report Carol Bryant MD Cardiology: N uclear Summary 1 . Normal myocardial perfusion imaging after vasodilator stress with Regadenoson. 2 . Normal left ventricular systolic function with a calculated ejection fraction of 66%. 3 . No obvious significant scintigraphic evidence of myocardial ischemia or scar. . ...................................................... ............Carol Bryant MD June 17, 2019 2:53 PM E cho CONCLUSIONS 06/16/19: 1 . Technically difficult study, secondary to poor acoustic windows. There is poor endocardial visualization. Interpretation is b ased on available limited views. Normal left ventricular systolic function. Normal left ventricular size. There is borderline left v entricular hypertrophy. There is E to A wave reversal consistent with impaired LV relaxation. E/E': 5.4. Left ventricular e jection fraction is measured at 65 %. 2 . Normal right ventricular size. Normal right ventricular systolic function. 3 . Mild mitral annular calcification. There is non-specific thickening of the mitral valve leaflets. There is trace physiologic m itral valve regurgitation. 4 . The tricuspid valve is normal in appearance and function. There is trace physiologic tricuspid valve regurgitation. The RA p ressure is estimated at 3.0 mmHg. Estimated peak pulmonary artery systolic pressure is 25.0 mmHg. PFT 06/19/2019 Conclusions: The results are within normal limits. P ulmonary Function Diagnosis: N ormal Pulmonary Function Carol Bryant MD Cardiology: H er updated medication list for this problem includes: Fenofibrate 48 Mg Oral Tablet (Fenofibrate) ..... Take 1 tablet by mouth once daily Carol Bryant MD Cardiology: H er updated medication list for this problem includes: Lisinopril-hydrochlorothiazide 20-25 Mg Oral Tablet (Lisinopril-hydrochlorothiazide) ..... One tab once daily Carol Bryant MD Cardiology: P lanned on having urological procedure at [facility]. Pre op will be made available after an echo is done. Will try to do today. Carol Bryant MD Cardiology: 2 cigs d aily T he Patient was reencouraged to stop smoking. Carol Bryant MD Cardiology:Upon revi ew of recent office visit and noninvasive testing and recent exam the patient is an acceptable candidate for the planned surgical procedure recommend to maintain her blood pressure range of 110 to 140 mmHg and a heart rate of 60-80 B p.m.. It is okay to use IV beta blockers calcium channel blockers nitrates and afterload reducing agents to maintain the aforementioned hemodynamics parameters. Tele monitoring and EKG should be done if the patient has arrhythmia during procedure Carol Bryant MD Cardiology: N uclear Summary 1 . Normal myocardial perfusion imaging after vasodilator stress with Regadenoson. 2 . Normal left ventricular systolic function with a calculated ejection fraction of 66%. 3 . No obvious significant scintigraphic evidence of myocardial ischemia or scar. . ...................................................... ............Carol Bryant MD June 17, 2019 2:53 PM E cho CONCLUSIONS 06/16/19: 1 . Technically difficult study, secondary to poor acoustic windows. There is poor endocardial visualization. Interpretation is b ased on available limited views. Normal left ventricular systolic function. Normal left ventricular size. There is borderline left v entricular hypertrophy. There is E to A wave reversal consistent with impaired LV relaxation. E/E': 5.4. Left ventricular e jection fraction is measured at 65 %. 2 . Normal right ventricular size. Normal right ventricular systolic function. 3 . Mild mitral annular calcification. There is non-specific thickening of the mitral valve leaflets. There is trace physiologic m itral valve regurgitation. 4 . The tricuspid valve is normal in appearance and function. There is trace physiologic tricuspid valve regurgitation. The RA p ressure is estimated at 3.0 mmHg. Estimated peak pulmonary artery systolic pressure is 25.0 mmHg. PFT 06/19/2019 Conclusions: The results are within normal limits. P ulmonary Function Diagnosis: N ormal Pulmonary Function Carol Bryant MD Cardiology: S TRONGLY ENCOURAGED TO STOP SMOKING; SMOKING CESSATION TECHNIQUES DISCUSSED. Carol Bryant MD Cardiology: h ad gastric bypasss down 100 lbs Carol Bryant MD Cardiology:STRONGLY ENCOURAGED TO STOP SMOKING; SMOKING CESSATION TECHNIQUES DISCUSSED. Carol Bryant MD Cardiology:had gastric bypasss d own 100 lbs Carol Bryant MD Cardiology: H er updated medication list for this problem includes: Fenofibrate 48 Mg Oral Tablet (Fenofibrate) ..... Take 1 tablet by mouth once daily Carol Bryant MD Cardiology: H er updated medication list for this problem includes: Clonidine Hcl 0.1 Mg Oral Tablet (Clonidine hcl) ..... As needed Lisinopril-hydrochlorothiazide 20-25 Mg Oral Tablet (Lisinopril-hydrochlorothiazide) ..... One tab once daily BP today: 110/70 Carol Bryant MD Cardiology:needs pre op eval h x of risk factors for cad will get noninvasive testing done first Carol Bryant MD Cardiology:improved off meds sin ce gastric bypass Carol Bryant MD Date Name Complete Echo EKG Complete Echo 6 minute walk test Ambulatory Oximetry DLCO - 41950 FRC - 64227 FVC - 36062 Tilt Table Test Carotid Duplex Bilat eral Complete Echo Stress Regadenoson HISTORY OF PROCEDURES Procedure Date Procedure Name Provider Procedure Notes S tatus EKG Carol Bryant MD compl eted Regadenoson, 4 units Carol Bryant MD completed Cardiolite, 2 units Carol Bryant MD completed SPECT Images Carol Bryant MD com pleted Stress EKG Carol Bryant MD compl eted FVC / MVV with bronchodilator - 07163 Carol Bryant MD completed FRC - 94348 Carol Bryant MD comp leted DLCO - 07415 Carol Bryant MD com pleted EKG Carol Bryant MD compl eted
--- OUTSIDE RECORDS SUMMARY | 2024-05-11 12:05 | XMS_ITS ---
Author Organization [facility] As Webdyn Address [address] [facility] [address] [place] [address] Care Team Providers Care Consumer Experience Consultant Name Role Phone Rosita Smith Unavailable [phone] Allergies Allergen (clinical drug ingredient) Drug/Non Drug Allergy documented on EMR Reaction Allergy Type Onset Date Status metformin / saxagliptin Kombiglyze XR Unknown Drug Allergy 08/19/2023 Active REASON FOR VISIT follow up depression, anxiety, insomnia Medications Medication SIG (Take, Route, Frequency, Duration) Notes Start Date End Date Status Trintellix 10 MG 1 tablet at bedtime Oral Once a day for 90 days Please DC existing orders from haydee Hamilton provider. thanks Active Zolpidem Tartrate 10 MG 1 tablet at bedtime Oral once a day for 30 days Please DC existing orders from haydee Hamilton provider. thanks 03/26/2024 07/24/2024 Active hydrOXYzine HCl 25 MG 0.5 to 1 tab Oral twice a day for 30 days As needed Active DULoxetine HCl 60 MG 1 capsule Oral twice a day for 90 days Please DC existing orders from haydee Hamilton provider. thanks 08/19/2023 Active Omeprazole 20 MG Oral 08/19/2023 Ac tive QUEtiapine Fumarate 50 MG 1 tablet at bedtime Oral Once a day for 90 days total dose 150mg Please DC existing orders from haydee Hamilton provider. thanks Active QUEtiapine Fumarate 100 MG 1 tablet at bedtime Oral Once a day for 90 days total dose 150mg Please DC existing orders from haydee Hamilton provider. thanks Active predniSONE 5 MG Oral 08/19/2023 Act tee Baclofen 10 MG Oral 08/19/2023 Acti ve Folic Acid 1 MG Oral 08/19/2023 Act tee Ondansetron 8 MG Oral for 10 Days Active Methotrexate Sodium 2.5 MG TAKE 8 TABLETS BY MOUTH ONCE A WEEK Oral for 28 Days Active sulfaSALAzine 500 MG Oral 08/19/2023 Active Gabapentin 600 MG Oral 08/19/2023 A ctive Lovastatin 20 MG Oral for 90 Days Active Lisinopril 20 MG 1 tablet Orally Once a day Active Social History Tobacco Use: Social History Observation Description Date Details (start date - stop date) Current Smoker NA - NA Sex Assigned At : Social History Observation Description Sex Assigned At Female Tobacco Control (Standard) Question Answer Notes Tobacco use: Current smoker Are you interested in quitting? Ready to quit Vital Signs Blood pressure systolic 163 mm Hg 03/25/20 24 Blood pressure diastolic 102 mm Hg 024 Heart Rate 109 /min 03/25/2024 Height 68.00 in 03/25/2024 Weight 233 lbs 03/25/2024 BMI 35.42 kg/m2 03/25/2024 Height-cm 172.72 cm 03/25/2024 Weight-kg 105.69 kg 03/25/2024 Encounters Encounter Location Date Provider Diagnosis [facility] [id number] [id number] [facility] [address] [address] 03/25/2024 Rosita Smith Major depressive disorder, recurrent, mild F33.0 ; Generalized anxiety disorder F41.1 and Primary insomnia F51.01 Assessments Encounter Date Diagnosis (ICD Code) Assessment Notes Treatment Notes Treatment Clinical Notes Section Notes 03/25/2024 Major depressive disorder, recurrent, mild (ICD-10 - F33.0) Assessment and Plan: 1. Depression - Reports significant improvement in depressive symptoms. Plan: - Continue current medications and monitor for any changes in mood. 2. Anxiety - Experiences occasional anxiety, managed with hydroxyzine as needed. Plan: - Continue current medications and monitor for any changes in anxiety levels. 3. Insomnia - Reports imporvements, occasionally waking up between 3-4 a.m., better, not concerned - Sometimes takes 50mg Seroquel when waking up at night to help fall back asleep. Plan: - Continue current medications - Encourage maintaining a consistent sleep schedule and practicing good sleep hygiene. - Schedule next appointment in approximately 3 months, as per patient's preference and current stability. - Call if any concerns arrise 03/25/2024 Generalized anxiety disorder (ICD-10 - F41.1) Assessment and Plan: 1. Depression - Reports significant improvement in depressive symptoms. Plan: - Continue current medications and monitor for any changes in mood. 2. Anxiety - Experiences occasional anxiety, managed with hydroxyzine as needed. Plan: - Continue current medications and monitor for any changes in anxiety levels. 3. Insomnia - Reports imporvements, occasionally waking up between 3-4 a.m., better, not concerned - Sometimes takes 50mg Seroquel when waking up at night to help fall back asleep. Plan: - Continue current medications - Encourage maintaining a consistent sleep schedule and practicing good sleep hygiene. - Schedule next appointment in approximately 3 months, as per patient's preference and current stability. - Call if any concerns arrise 03/25/2024 Primary insomnia (ICD-10 - F51.01) Assessment and Plan: 1. Depression - Reports significant improvement in depressive symptoms. Plan: - Continue current medications and monitor for any changes in mood. 2. Anxiety - Experiences occasional anxiety, managed with hydroxyzine as needed. Plan: - Continue current medications and monitor for any changes in anxiety levels. 3. Insomnia - Reports imporvements, occasionally waking up between 3-4 a.m., better, not concerned - Sometimes takes 50mg Seroquel when waking up at night to help fall back asleep. Plan: - Continue current medications - Encourage maintaining a consistent sleep schedule and practicing good sleep hygiene. - Schedule next appointment in approximately 3 months, as per patient's preference and current stability. - Call if any concerns arrise 03/25/2024 Other referral to the local chapter or national office of the Alzheimer's Association ( ; http://www.alz. org), the Alzheimer's Disease Education and Referral Center (ADEAR) ( ; http://www.susan. nih.gov/Alzheim ers/), Assessment and Plan: 1. Depression - Reports significant improvement in depressive symptoms. Plan: - Continue current medications and monitor for any changes in mood. 2. Anxiety - Experiences occasional anxiety, managed with hydroxyzine as needed. Plan: - Continue current medications and monitor for any changes in anxiety levels. 3. Insomnia - Reports imporvements, occasionally waking up between 3-4 a.m., better, not concerned - Sometimes takes 50mg Seroquel when waking up at night to help fall back asleep. Plan: - Continue current medications - Encourage maintaining a consistent sleep schedule and practicing good sleep hygiene. - Schedule next appointment in approximately 3 months, as per patient's preference and current stability. - Call if any concerns arrise Plan Of Treatment Medication Medication Name Sig Start Date Stop Date Notes Trintellix 10 MG 1 tablet at bedtime Oral Once a day for 90 days Please DC existing orders from haydee Hamilton provider. thanks Zolpidem Tartrate 10 MG 1 tablet at bedt gail Oral once a day for 30 days 03/26/2024 07/24/2024 Please DC existing orders from haydee Hamilton provider. thanks DULoxetine HCl 60 MG 1 capsule Oral twic e a day for 90 days 08/19/2023 Please DC existing orders from haydee Hamilton provider. thanks QUEtiapine Fumarate 50 MG 1 tablet at bedtime Oral Once a day for 90 days Please DC existing orders from haydee Hamilton provider. thanks QUEtiapine Fumarate 100 MG 1 tablet at bedtime Oral Once a day for 90 days Please DC existing orders from haydee Hamilton provider. thanks Treatment Notes Assessment Notes Other referral to the local chapter or national office of the Alzheimer's Association ( ; http://www.alz.org), the Alzheimer's Disease Education and Referral Center (ADEAR) ( ; http://www.susan.nih.gov/Alzheimers/), Next Appt Details Follow Up: 3 Months, Reason: Provider Name:Rosita castillo, 06/24/2024 02:00:00 PM, [address], [facility] [address], [place], [address], Progress Notes * AHSAN HANEYDOB:1955 (69 yo F)Acc No.[id number]:03/25/2024 Patient:?AHSAN HANEY Provider:?Rosita Smith :1955???Age:69 Y???Sex:Female D ate:03/25/2024 Address:[address] , [place], [facility] Subjective: * Chief Complaints: * ???Follow up depression, anx iety, insomnia * HPI: ???Depression screening:?PHQ-9?Little interest or pleasure in doing things?Not at all,?Feeling down, depressed, or hopeless?Not at all,?Trouble falling or staying asleep, or sleeping too much?Several days,?Feeling tired or having little energy?Nearly every day,?Poor appetite or overeating?Several days,?Feeling bad about yourself or that you are a failure, or have let yourself or your family down?Not at all,?Trouble concentrating on things, such as reading the newspaper or watching television?More than half the days,?Moving or speaking so slowly that other people could have noticed; or the opposite, being so fidgety or restless that you have been moving around a lot more than usual?Not at all,?Thoughts that you would be better off or of hurting yourself in some way?Not at all,?Total Score?7,?Interpretation?Mild Depression.?Intervention?Depression Screening Findings?Positve,?Follow-Up for Depression?Mental health treatment assessment, Patient follow-up to return when and if necessary,?Suicide Risk Assessment Performed? ,?Additional Evaluation for Depression?Psychiatric interview and evaluation,?Name of the standardized tool used for adult depression screening:?Patient Health Questionnaire (PHQ-9).?Depression Screening:?RYLAND-7 (2018 Edition)?Feeling nervous, anxious, or on edge?Several days,?Not being able to stop or control worrying?Several days,?Worrying too much about different things?Several days,?Trouble relaxing?Not at all,?Being so restless that it is hard to sit still?Not at all,?Becoming easily annoyed or irritable?Several days,?Feeling afraid as if something awful might happen?Not at all,?Total RYLAND-7 Score?4,?If you checked any problems, how difficult have they made it for you to do your work, take care of things at home, or get along with other people??Somewhat difficult,?Interpretation of Total?(0 to 4) No Anxiety.?History of Presenting Problem:? 68 y/o female, , here to follow up for depression, anxiety, and insomnia. Recent lymphona dx and chemo. 03/25/2024 follow up: Reports an improvement in depression and manageable anxiety, occasionally using hydroxyzine. Endores she has had a reduction in sleep disturbances, still ocassionally waking up between 3 and 4 a.m., no identifiable triggers.?Sometimes takes 50mg Seroquel when waking up at night to help fall back asleep.When she's not able to fall back asleep, admits to watching tv sometimes.?Overall sleep issues have improved, taking ambien and seroquel. 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 A scan is scheduled for April 04 to assess cancer status, with hopes of remission. Reports being tired, but relates it to medical conditions. No issues with appetite, no depression, mild/manageable anxiety (worrying), denies SI, manic symptoms, paranoia Expresses satisfaction with the current medication regimen for mood, sleep, and anxiety, with no desire for changes.? Stopped going to therapy, found it unhelpful. Open to exploring others 12/09/2023 follow up: I'm trying to be optimistic. depression is mild. Denies SI. niece moved out and back to [facility], I miss her. anxiety is ok, manageable. have not been needing to take the hydroxyzine. Sleep has gotten a whole lot?better.?still sees counselor, once a month. seems in good spirits Medical: cancer as above; also discuss elevated BP says kidney doctor took me off lisinopril and HCTZ combo and just on HCTZ now, but I'm going to call him.?cont zolpidem 10 mg qhs;?cont hydroxyzine send BID prn;?cont quetiapine 150 mg qhs (or 100mg qhs and 50mg if wake up middle of night); cont trintellix 10mg qhs;?cont duloxetine 120mg daily. * ROS:?General / Constitutional:?Patient denies?change in appetite, fatigue, headache, lightheadedness, weight gain, weight loss.?Patient complains of?sleep disturbance.?Cardiovascular:?Patient denies?chest pain, dizziness, palpitations, swelling in hands / feet.?Gastrointestinal:?Patient denies?abdominal pain, change in bowel habits, nausea, vomiting, difficulty swallowing.?Neurologic:?Patient denies?balance difficulty, confusion, dizziness, fainting, headache, irritability, tremor, tic, seizures.?Psychiatric:?Patient denies?suicidal thoughts, psychosis, auditory / visual hallucinations, delusions, ronald.?Comments?See HPI for more details.? * Medical History:? * Surgical History:?Breast curtis ally ([id number]) Reconstructive surgery Other Any surgical history Hysterectomy ([id number]) * Hospitalization/Major Diagno stic Procedure:?Denies Past Hospitalization * Family History:?Mother: Anxi ety disorder , History of attempted suicide , Diabetes mellitus .? * Social History:?Tobacco Use:?Tobacco Control (Standard)?Tobacco use:?Current smoker,?Are you interested in quitting??Ready to quit.?Migrated Social History:?Migrated Social History: Alcohol Intake: Occasional 08/02/2020,Tobacco Years: Current every day smoker 03/24/2018. * Medications:?TakingLisinopri l 20 MG Tablet 1 tablet Orally Once a day Lovastatin 20 MG Tablet Oral Methotrexate Sodium 2.5 MG Tablet TAKE 8 TABLETS BY MOUTH ONCE A WEEK Oral Ondansetron 8 MG Tablet Disintegrating Oral Folic Acid 1 MG Tablet Oral Gabapentin 600 MG Tablet Oral sulfaSALAzine 500 MG Tablet Oral Omeprazole 20 MG Capsule Delayed Release Oral Baclofen 10 MG Tablet Oral predniSONE 5 MG Tablet Oral QUEtiapine Fumarate 50 MG Tablet 1 tablet at bedtime Oral Once a day total dose 150mgZolpidem Tartrate 10 MG Tablet 1 tablet at bedtime Oral once a day Trintellix 10 MG Tablet 1 tablet at bedtime Oral Once a day DULoxetine HCl 60 MG Capsule Delayed Release Particles 1 capsule Oral twice a day hydrOXYzine HCl 25 MG Tablet 0.5 to 1 tab Oral twice a day As neededTaking Lisinopril 20 MG Tablet 1 tablet Orally Once a day Taking Lovastatin 20 MG Tablet Oral Taking Methotrexate Sodium 2.5 MG Tablet TAKE 8 TABLETS BY MOUTH ONCE A WEEK Oral Taking Ondansetron 8 MG Tablet Disintegrating Oral Taking Folic Acid 1 MG Tablet Oral Taking Gabapentin 600 MG Tablet Oral Taking sulfaSALAzine 500 MG Tablet Oral Taking Omeprazole 20 MG Capsule Delayed Release Oral Taking Baclofen 10 MG Tablet Oral Taking predniSONE 5 MG Tablet Oral Taking QUEtiapine Fumarate 50 MG Tablet 1 tablet at bedtime Oral Once a day total dose 150mgTaking Zolpidem Tartrate 10 MG Tablet 1 tablet at bedtime Oral once a day Taking Trintellix 10 MG Tablet 1 tablet at bedtime Oral Once a day Taking DULoxetine HCl 60 MG Capsule Delayed Release Particles 1 capsule Oral twice a day Taking hydrOXYzine HCl 25 MG Tablet 0.5 to 1 tab Oral twice a day As neededDiscontinuedQUEtiapine Fumarate 100 MG Tablet 1 tablet at bedtime Oral Once a day total dose 150mgMedication List reviewed and reconciled with the patientDiscontinued QUEtiapine Fumarate 100 MG Tablet 1 tablet at bedtime Oral Once a day total dose 150mgMedication List reviewed and reconciled with the patient * Allergies:?Luis Alberto XR: Hari garcia - Onset Date 08/19/2023no[Allergies Verified] Objective: * Vitals:?BP:163/102mm Hg, HR: 109/min, Wt:233lbs, Wt-k.69 kg, Ht: 68.00 in, Ht-cm: 172.72 cm, BMI:35.42Index, Body Surface Area: 2.25. * Examination: ???Functional Assessment: ?Garcia Index of ADL?.?Physical Functioning?.?1 point for independence, 0 for help. ???Psychiatry: ?Dementia?.?Appearance:?well-groomed, well-nourished, appears stated age.?Abnormal body movements:?none.?Affect / mood:?appropriate, full range.?Attention:?good, normal in conversation.?Attitude:?cooperative, open-minded with collaborative approach.?Homicidal ideation:?none.?Suicidal ideation:?none.?Memory status:?no impairment noted.?Delusions:?no.?Hallucinations:?no.?Insight:?good.?Intellectual functioning:?no impairment noted.?Judgement:?good.?Orientation:?awake, alert and oriented x 3.?Speech / language:?appropriate pitch/modulation, clear and coherent, normal rate, volume, and articulation (RVR), proper grammar used.?Thought content:?appropriate.?Thought process:?intact.?General Examination: ?General appearance:?alert, pleasant, well-nourished and in no acute distress.? Assessment: * Assessment: 1.?Major depressive disorder , recurrent, mild - F33.0 (Primary)???2.?Generalized anxiety disorder - F41.1???3.?Primary insomnia - F51.01??? Assessment and Plan: 1. Depression ? ?- Reports significant improvement in depressive symptoms. ? ?Plan: ? ? ?- Continue current medications and monitor for any changes in mood. 2. Anxiety ? ?- Experiences occasional anxiety, managed with hydroxyzine as needed. ? ?Plan: ? ? ?- Continue current medications and monitor for any changes in anxiety levels. 3. Insomnia ? ?- Reports imporvements, occasionally waking up between 3-4 a.m., better, not concerned ? ?- Sometimes takes 50mg Seroquel when waking up at night to help fall back asleep. ? ?Plan: ? ? ?- Continue current medications ? ? ?- Encourage maintaining a consistent sleep schedule and practicing good sleep hygiene. ? ?- Schedule next appointment in approximately 3 months, as per patient's preference and current stability. ? ?- Call if any concerns arrise Plan: * Treatment: 2.?Generalized anxiety disor kam? Refill DULoxetine HCl Capsule Delayed Release Particles, 60 MG, 1 capsule, Oral, twice a day, 90 days, 180 Capsule, Refills 1, Notes to Pharmacist: Please DC existing orders from haydee Hamilton provider. thanks.?? 3.?Primary insomnia? Refill Zolpidem Tartrate Tablet, 10 MG, 1 tablet at bedtime, Oral, once a day, 30 days, 30 Tablet, Refills 3, Notes to Pharmacist: Please DC existing orders from haydee Hamilton provider. thanks.?? 4.?Others? Notes: referral to the local [facility] office of the Alzheimer's Association ( ;http://www.alz.org), the [facility] Education and Referral [facility] ([facility]) ( ;http://www.susan.nih.gov/Alzh berna/), ?? * Procedure Codes:?G9902 Pt sc rn tbco and id as [id number] BEHAV ASSMT W/SCORE & DOCD/STAND [id number] BEHAV ASSMT W/SCORE & DOCD/STAND [id number] VISIT COMPLEXITY INHERENT TO ONGOING CARE RELATED TO A PATIENT'S SINGLE, SERIOUS CONDITION OR A COMPLEX CONDITION * Preventive Medicine:? ??Counseling:?BP Management:?FIRST HYPERTENSIVE BP READING FOLLOW-UP PLAN:?Follow-up 1 month Follow up with your PCP,?LIFESTYLE RECOMMENDATION:?Lifestyle education, REFERRAL TO ALTERNATIVE / PRIMARY CARE PROVIDER:?Referral to general medical service ____.?Communication to patient:?Counseled the Patient on tobacco use; cessation provided? .?Smoking Cessation counseling done Discuss the importance of quitting smoking,. * Follow Up:?3 Months * Billing Information: * Visit Code:? 64764 OFFICE OUTPATIENT VISIT 25 MINUTES DETAILED HISTORY AND EXAM/MODERATE MEDICAL DECISION MAKING. * Procedure Codes:? G9902 Pt scrn tbco and id as user. [id number] BEHAV ASSMT W/SCORE & DOCD/STAND INSTRUMENT. 43966 BEHAV ASSMT W/SCORE & DOCD/STAND INSTRUMENT. G2211 VISIT COMPLEXITY INHERENT TO ONGOING CARE RELATED TO A PATIENT'S SINGLE, SERIOUS CONDITION OR A COMPLEX CONDITION. 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 024 Generated for Jacobo alvarado/Madie/eTransmlynette on:?05/11/2024 12:05 PM INSIDE SALES PROFESSIONAL History and Physical Notes * HPI (History of Present Illness) Category Sub-Category Detail Notes Category Not es Depression screening PHQ-9 Little inte rest or pleasure in doing things: Not at all Feeling down, depressed, or hopeless: No t at all Trouble falling or staying asleep, or sl eeping too much: Several days Feeling tired or having little energy: N early every day Poor appetite or overeating: Several day s Feeling bad about yourself o r that you are a failure, or have let yourself or your family down: Not at all Trouble concentrating on thi ngs, such as reading the newspaper or watching television: More than half the days Moving or speaking so slowly that other people could have noticed; or the opposite, being so fidgety or restless that you have been moving around a lot more than usual: Not at all Thoughts that you would be b marian off or of hurting yourself in some way: Not at all Total Score: 7 Interpretation: Mild Depression Intervention Depression Screening Findings: P ositve Follow-Up for Depression: [facility] treatment assessment, Patient follow-up to return when and if necessary Suicide Risk Assessment Performed: Additional Evaluation for De pression: Psychiatric interview and evaluation Name of the standardized too l used for adult depression screening:: Patient Health Questionnaire (PHQ-9) Depression Screening RYLAND-7 (2018 Edition) Feelin g nervous, anxious, or on edge: Several days Not being able to stop or control worrytaylor ng: Several days Worrying too much about different things : Several days Trouble relaxing: Not at all Being so restless that it is hard to sit still: Not at all Becoming easily annoyed or irritable: Se veral days Feeling afraid as if something awful lukas ht happen: Not at all Total RYLAND-7 Score: 4 If you checked any problems, how difficult have they made it for you to do your work, take care of things at home, or get along with other people?: Somewhat difficult Interpretation of Total: (0 to 4) No Anx iety Examination Category Sub-Category Detail Notes Category Not es Psychiatry Appearance: well-groomed, we ll-nourished, appears stated age Attitude: cooperative, open-mi nded with collaborative approach Abnormal body movements: none Attention: good, normal in conv ersation Orientation: awake, alert and alvarado ented x 3 Affect / mood: appropriate, full ra nge Speech / language: appropriate pitch/mo dulation, clear and coherent, normal rate, volume, and articulation (RVR), proper grammar used Insight: good Judgement: good Thought process: intact Thought content: appropriate Suicidal ideation: none Homicidal ideation: none Intellectual functioning: no impairment noted Memory status: no impairment noted Delusions: no Hallucinations: no Dementia Safety concern scree jose for dangerousness to self and environment risks provided:: Yes ?What action was taken to mitigate the r isk?: Education provided ?Topics discussed for enviro nmental risks:: Home safety risks that could arise from cooking or smoking, Access to firearms or other weapons, Access to potentially dangerous chemicals and other materials ?Topics discussed for danger ousness to self:: Medication misuse, Financial mismanagement ?Safety concern mitigation recommendatio n provided:: Not required ?Screening Result:: Negative Caregiver education and support provided : Yes General Examination General appearance: alert, p leasant, well-nourished and in no acute distress Functional Assessment Garcia Index of ADL Score:: 6 1 point for independence, 0 for help 1 point for independence , 0 for help Physical Functioning Personal hygiene: i ncluding combing hair, brushing teeth, shaving, applying makeup, washing/drying face and hands (exclude baths and showers): Independent (1) Bathing: how client takes fu ll-body bath/shower or sponge bath (exclude washing of back and hair). Includes how each part of body is bathed: arms, upper and lower legs, chest, abdomen, perineal area. (code for most dependent episode in last 7 days): Independent (1) Dressing upper body: how cli ent dresses and undresses (street clothes, underwear) above the waist, includes prostheses, orthotics, fasteners, pullovers, etc.: Independent (1) Dressing lower body: how cli ent dresses and undresses (street clothes, underwear), from the waist down, includes prostheses, orthotics, belts, pants, skirts, shoes, and fasteners: Independent (1) Eating - Including taking in food by any method, including tube feedings: Independent (1) Toilet use: including using the toilet room or commode, bedpan, urinal, transferring on/off toilet, cleaning self after toilet use or incontinent episode, changing pad, managing any special devices required (ostomy or catheter), and adjusting clothes.: Independent (1) Transfer: including moving t o and between surfaces--to/from bed, chair, wheelchair, standing position (excludes to/from bath/toilet): Independent (1) Transportation: No difficulty Continence:: Independent (1)
--- OUTSIDE RECORDS SUMMARY | 2024-05-11 12:05 | XMS_ITS ---
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 Name Role Phone Migration, Provider Unavailable Unavailable Allergies Allergen (clinical drug ingredient) Drug/Non Drug Allergy documented on EMR Reaction Allergy Type Onset Date Status metformin / saxagliptin Kombiglyze XR Unknown Drug Allergy 08/19/2023 Active REASON FOR VISIT EMR-Evaristo Medications Medication SIG (Take, Route, Frequency, Duration) Notes Start Date End Date Status sulfaSALAzine 500 MG Oral 08/19/2023 Active Gabapentin 600 MG Oral 08/19/2023 A ctive Lidocaine-Prilocaine 2.5-2.5 % External 08/19/2023 Active Vilazodone HCl 20 MG Oral 08/19/2023 Active Ondansetron HCl 4 MG Oral 08/19/2023 Active DULoxetine HCl 60 MG Oral 08/19/2023 Active buPROPion HCl ER (SR) 100 MG Oral 08/19/2023 Active Zolpidem Tartrate 10 MG Oral 08/19/2023 Active Folic Acid 1 MG Oral 08/19/2023 Act tee Azithromycin 250 MG Oral 08/19/2023 Active FLUZONE QUAD (PF) 60 MCG (15 MCG X 4)/0.5 ML IM SYRINGE *Reorder from [facility] for eRx and Interaction Alerts* 08/19/2023 Active Escitalopram Oxalate 20 MG Oral 08/19/2023 Active Benzonatate 100 MG Oral 08/19/2023 Active Methotrexate 2.5 MG Oral 08/19/2023 Active Omeprazole 20 MG Oral 08/19/2023 Ac tive Ondansetron 8 MG Oral 08/19/2023 Ac tive Lisinopril-hydroCHLORO thiazide 20-25 MG Oral 08/19/2023 Active Doxycycline Hyclate 100 MG Oral 08/19/2023 Active Trintellix 10 MG Oral 08/19/2023 Ac tive Ergocalciferol 1.25 MG (04708 UT) Oral 08/19/2023 Active QUEtiapine Fumarate 100 MG Oral 08/19/2023 Active Ozempic (0.25 or 0.5 MG/DOSE) 2 MG/3ML Subcutaneous *Pick strength-form from [facility] for eRX* 08/19/2023 Active TALTZ AUTOINJECTOR 80 mg/mL Subcutaneous *Reorder from [facility] for eRx and Interaction Alerts* 08/19/2023 Active FLUZONE QUAD (PF) 60 MCG (15 MCG X 4)/0.5 ML IM SYRINGE *Reorder from [facility] for eRx and Interaction Alerts* 08/19/2023 Active Lovastatin 20 MG Oral 08/19/2023 Ac tive Farxiga 5 MG Oral 08/19/2023 Active ProAir HFA 108 (90 Base) MCG/ACT Inhalation 08/19/2023 Active QUEtiapine Fumarate 50 MG Oral 08/19/2023 Active Zolpidem Tartrate 5 MG Oral 08/19/2023 Active Cholecalciferol 1.25 MG (44688 UT) Oral 08/19/2023 Active hydrOXYzine HCl 25 MG Oral 08/19/2023 Active Baclofen 10 MG Oral 08/19/2023 Acti ve predniSONE 5 MG Oral 08/19/2023 Act tee Calcitriol 0.25 MCG Oral 08/19/2023 Active Social History Sex Assigned At : Social History Observation Description Sex Assigned At Female Encounters En[facility] [address] [facility] [address] [place] [address] 09/22/2023 Provider Migration Plan Of Treatment Next Appt Details Provider Name:Rosita castillo, 06/24/2024 02:00:00 PM, [address], [address], [place], [address], Progress Notes * PANDA HANEY:1955 (68 yo F)Acc No.[id number]:09/22/2023 Patient:AHSAN FU :1955???Age:68 Y???Sex:Female Address:[address] [place] [address], [id number] Subjective: * Chief Complaints: * ???EMR-Evaristo * Medical History:? 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 * Surgical History:?Breast curtis ally (43535) Reconstructive surgery Any surgical history Hysterectomy (56708) Other * Hospitalization/Major Diagno stic Procedure:? * Family History:?Mother: Anxi ety disorder , History of attempted suicide , Diabetes mellitus .? * Social History:?Migrated Social History:?Migrated Social History: Alcohol Intake: Occasional 08/02/2020,Tobacco Years: Current every day smoker 03/24/2018. * Medications:?TakingZolpidem Tartrate 5 MG Tablet Oral Ozempic (0.25 or 0.5 MG/DOSE) 2 MG/3ML Solution Pen-injector Subcutaneous , Notes to Pharmacist: *Pick strength- form from [facility] for eRX*FLUZONE QUAD 1254-4072 (PF) 60 MCG (15 MCG X 4)/0.5 ML IM SYRINGE , Notes to Pharmacist: *Reorder from [facility] for eRx and Interaction Alerts*Doxycycline Hyclate 100 MG Tablet Oral Lisinopril-hydroCHLOROthiazide 20- 25 MG Tablet Oral Methotrexate 2.5 MG Tablet Oral Escitalopram Oxalate 20 MG Tablet Oral FLUZONE QUAD (PF) 60 MCG (15 MCG X 4)/0.5 ML IM SYRINGE , Notes to Pharmacist: *Reorder from [facility] for eRx and Interaction Alerts*Folic Acid 1 MG Tablet Oral buPROPion HCl ER (SR) 100 MG Tablet Extended Release 12 Hour Oral Cholecalciferol 1.25 MG (13090 UT) Capsule Oral Lovastatin 20 MG Tablet Oral QUEtiapine Fumarate 100 MG Tablet Oral TALTZ AUTOINJECTOR 80 mg/mL Solution Auto-injector Subcutaneous , Notes to Pharmacist: *Reorder from [facility] for eRx and Interaction Alerts*Gabapentin 600 MG Tablet Oral Ondansetron HCl 4 MG Tablet Oral sulfaSALAzine 500 MG Tablet Oral Benzonatate 100 MG Capsule Oral Trintellix 10 MG Tablet Oral DULoxetine HCl 60 MG Capsule Delayed Release Particles Oral Lidocaine-Prilocaine 2.5-2.5 % Cream External Vilazodone HCl 20 MG Tablet Oral Azithromycin 250 MG Tablet Oral Zolpidem Tartrate 10 MG Tablet Oral Ondansetron 8 MG Tablet Disintegrating Oral hydrOXYzine HCl 25 MG Tablet Oral ProAir HFA 108 (90 Base) MCG/ACT Aerosol Solution Inhalation QUEtiapine Fumarate 50 MG Tablet Oral Ergocalciferol 1.25 MG (52465 UT) Capsule Oral Omeprazole 20 MG Capsule Delayed Release Oral Farxiga 5 MG Tablet Oral Baclofen 10 MG Tablet Oral Calcitriol 0.25 MCG Capsule Oral predniSONE 5 MG Tablet Oral Taking Zolpidem Tartrate 5 MG Tablet Oral Taking Ozempic (0.25 or 0.5 MG/DOSE) 2 MG/3ML Solution Pen-injector Subcutaneous , Notes to Pharmacist: *Pick strength-form from [facility] for eRX*Taking FLUZONE (PF) 60 MCG (15 MCG X 4)/0.5 ML IM SYRINGE , Notes to Pharmacist: *Reorder from [facility] for eRx and Interaction Alerts*Taking Doxycycline Hyclate 100 MG Tablet Oral Taking Lisinopril-hydroCHLOROthiazide 20-25 MG Tablet Oral Taking Methotrexate 2.5 MG Tablet Oral Taking Escitalopram Oxalate 20 MG Tablet Oral Taking FLUZONE QUAD (PF) 60 MCG (15 MCG X 4)/0.5 ML IM SYRINGE , Notes to Pharmacist: *Reorder from [facility] for eRx and Interaction Alerts*Taking Folic Acid 1 MG Tablet Oral Taking buPROPion HCl ER (SR) 100 MG Tablet Extended Release 12 Hour Oral Taking Cholecalciferol 1.25 MG (87062 UT) Capsule Oral Taking Lovastatin 20 MG Tablet Oral Taking QUEtiapine Fumarate 100 MG Tablet Oral Taking TALTZ AUTOINJECTOR 80 mg/mL Solution Auto-injector Subcutaneous , Notes to Pharmacist: *Reorder from [facility] for eRx and Interaction Alerts*Taking Gabapentin 600 MG Tablet Oral Taking Ondansetron HCl 4 MG Tablet Oral Taking sulfaSALAzine 500 MG Tablet Oral Taking Benzonatate 100 MG Capsule Oral Taking Trintellix 10 MG Tablet Oral Taking DULoxetine HCl 60 MG Capsule Delayed Release Particles Oral Taking Lidocaine-Prilocaine 2.5-2.5 % Cream External Taking Vilazodone HCl 20 MG Tablet Oral Taking Azithromycin 250 MG Tablet Oral Taking Zolpidem Tartrate 10 MG Tablet Oral Taking Ondansetron 8 MG Tablet Disintegrating Oral Taking hydrOXYzine HCl 25 MG Tablet Oral Taking ProAir HFA 108 (90 Base) MCG/ACT Aerosol Solution Inhalation Taking QUEtiapine Fumarate 50 MG Tablet Oral Taking Ergocalciferol 1.25 MG (45765 UT) Capsule Oral Taking Omeprazole 20 MG Capsule Delayed Release Oral Taking Farxiga 5 MG Tablet Oral Taking Baclofen 10 MG Tablet Oral Taking Calcitriol 0.25 MCG Capsule Oral Taking predniSONE 5 MG Tablet Oral * Allergies:?Kombiglyze XR: Hari lergy - Onset Date 08/19/2023 Objective: * Vitals:? * Physical Examination:? Assessment: Plan: * Treatment: PDMP report request complete d on 12/09/2023 11:15:04 PM - Sheryl Mcguire * Procedure Codes:? * true * Date:? 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
--- OUTSIDE RECORDS SUMMARY | 2024-05-11 12:05 | XMS_ITS ---
Author Organization [facility] As [employer] Address [address] [facility] [address] [place] [address] Care Team Providers Care Half Section Ironer Name Role Phone Sheryl Mcguire Unavailable [phone] Allergies Allergen (clinical drug ingredient) Drug/Non Drug Allergy documented on EMR Reaction Allergy Type Onset Date Status metformin / saxagliptin Kombiglyze XR Unknown Drug Allergy 08/19/2023 Active REASON FOR VISIT follow-up Medications Medication SIG (Take, Route, Frequency, Duration) Notes Start Date End Date Status hydrOXYzine HCl 25 MG Oral 08/19/2023 Active predniSONE 5 MG Oral 08/19/2023 Act tee Omeprazole 20 MG Oral 08/19/2023 Ac tive Baclofen 10 MG Oral 08/19/2023 Acti ve sulfaSALAzine 500 MG Oral 08/19/2023 Active Methotrexate Sodium 2.5 MG TAKE 8 TABLET S BY MOUTH ONCE A WEEK Oral for 28 Days Active Folic Acid 1 MG Oral 08/19/2023 Act tee Gabapentin 600 MG Oral 08/19/2023 A ctive Ondansetron 8 MG Oral for 10 Days Active Zolpidem Tartrate 10 MG 1 tablet at bedt gail Oral once a day for 30 days 12/09/2023 Active Trintellix 10 MG 1 tablet at bedtime Oral Once a day for 90 days Active DULoxetine HCl 60 MG 1 capsule Oral twic e a day for 90 days 08/19/2023 Active Lisinopril 20 MG 1 tablet Orally Once a day Active Lovastatin 20 MG Oral for 90 Days Active QUEtiapine Fumarate 100 MG 1 tablet at bedtime Oral Once a day for 90 days total dose 150mg Active QUEtiapine Fumarate 50 MG 1 tablet at bedtime Oral Once a day for 90 days total dose 150mg Active Social History Sex Assigned At : Social History Observation Description Sex Assigned At Female Problems Problem Type SNOMED Code ICD Code Onset Dates Problem Status W/U Status Risk Notes Problem Mild recurrent major depression (84041576) Major depressive disorder, recurrent, mild (F33.0) 4 Active confirmed Problem Generalized anxiety disorder (39259149) Generalized anxiety disorder (F41.1) 4 Active confirmed Problem Primary insomnia (0859710) Primary insomnia (F51.01) 4 Active confirmed Vital Signs Blood pressure systolic 144 mm Hg 12/09/19 24 Blood pressure diastolic 106 mm Hg 024 Heart Rate 112 /min 12/09/2023 Height 68.00 in 12/09/2023 Weight 233 lbs 12/09/2023 BMI 35.42 kg/m2 12/09/2023 Height-cm 172.72 cm 12/09/2023 Weight-kg 105.69 kg 12/09/2023 Encounters Encounter Location Date Provider Diagnosis [facility] [employer] [facility] [address] [facility] [address] [address] 12/09/2023 Sheryl Mcguire Major depressive disorder, recurrent, mild F33.0 ; Generalized anxiety disorder F41.1 and Primary insomnia F51.01 Assessments Encounter Date Diagnosis (ICD Code) Assessment Notes Treatment Notes Treatment Clinical Notes Section Notes 12/09/2023 Major depressive disorder, recurrent, mild (ICD-10 - F33.0) cont quetiapine 150 mg qhs (or 100mg qhs and 50mg if wake up middle of night)cont trintellix 10mg qhs cont duloxetine 120mg daily doing well currently cont current meds; education on meds and treatment course cont therapy recommend she call provider about BP f/u in 3 months, earlier if concerns 12/09/2023 Generalized anxiety disorder (ICD-10 - F41.1) meds as above cont hydroxyzine send BID prn-encourage to minimize; has not been using often cont therapy 12/09/2023 Primary insomnia (ICD-10 - F51.01) cont zolpidem 10 mg qhspractice good sleep hygiene Plan Of Treatment Medication Medication Name Sig Start Date Stop Date Notes Zolpidem Tartrate 10 MG 1 tablet at bedt gail Oral once a day for 30 days 12/09/2023 Trintellix 10 MG 1 tablet at bedtime Oral Once a day for 90 days DULoxetine HCl 60 MG 1 capsule Oral twic e a day for 90 days 08/19/2023 QUEtiapine Fumarate 100 MG 1 tablet at b edtime Oral Once a day for 90 days QUEtiapine Fumarate 50 MG 1 tablet at be dtime Oral Once a day for 90 days Treatment Notes Assessment Notes Major depressive disorder, recurrent, mi ld cont quetiapine 150 mg qhs (or 100mg qhs and 50mg if wake up middle of night)cont trintellix 10mg qhs cont duloxetine 120mg daily Generalized anxiety disorder meds as above cont hydroxyzine send BID prn-encourage to minimize; has not been using often cont therapy Primary insomnia cont zolpidem 10 mg qhspractice good sleep hygiene Next Appt Details Follow Up: 3 Months, Reason: Provider Name:Rosita castillo, 06/24/2024 02:00:00 PM, [address] [facility] [address], [address], [address], Progress Notes * AHSAN HANEYDOB:1955 (68 yo F)Acc No.[id number]:12/09/2023 Patient:?AHSAN HAENY Provider:?AZUL PINTOHNP :1955???Age:68 Y???Sex:Female D ate:12/09/2023 Address:[address] [place] [address] Subjective: * Chief Complaints: * ???1. Follow-up. * HPI: ???History of Presenting Problem:? 68 y/o female, , here to follow up for depression, anxiety, and insomnia. Recent lymphona dx and chemo. had last chemo treatment last month, I go for scan to make sure it's gone. I'm still tired a lot, GI sx.? I'm trying to be optimistic. depression is mild. Denies SI. niece moved out and back to [facility], I miss her. anxiety is ok, manageable. have not been needing to take the hydroxyzine. Sleep has gotten a whole lot?better.? still sees counselor, once a month Medical: cancer as above; also discuss elevated BP says kidney doctor took me off lisinopril and HCTZ combo and just on HCTZ now, but I'm going to call him seems in good spirits. * ROS:?Psychiatric:?Comments?See HPI for details.? * Medical History:?Problems: B reast neoplasm screening status, Gastroesophageal reflux disease, Generalized anxiety disorder, History of total knee arthroplasty, Hypertensive disorder, Mild recurrent major depression, Moderate recurrent major depression, Nicotine dependence, Normal grief reaction, Obesity, Obstructive sleep apnea syndrome, Primary insomnia, Psoriasis, Rheumatoid arthritis, Severe recurrent major depression without psychotic features, Smoker, ,. * Surgical History:?Breast curtis ally () , Reconstructive surgery , Other , Any surgical history , Hysterectomy (85561) . * Hospitalization/Major Diagno stic Procedure:?Denies Past Hospitalization. * Family History:?Mother: Anxi ety disorder , History of attempted suicide , Diabetes mellitus .? * Social History:?Migrated Social History:?Migrated Social History: Alcohol Intake: Occasional 08/02/2020,Tobacco Years: Current every day smoker 03/24/2018. * Medications:?Taking Lisinopr il 20 MG Tablet 1 tablet Orally Once a day , Taking Lovastatin 20 MG Tablet Oral , Taking Zolpidem Tartrate 10 MG Tablet TAKE 1 TABLET BY MOUTH AT BEDTIME Oral , Taking QUEtiapine Fumarate 100 MG Tablet Oral , Taking QUEtiapine Fumarate 50 MG Tablet Oral , Taking Methotrexate Sodium 2.5 MG Tablet TAKE 8 TABLETS BY MOUTH ONCE A WEEK Oral , Taking Ondansetron 8 MG Tablet Disintegrating Oral , Taking Trintellix 10 MG Tablet Oral , Taking Folic Acid 1 MG Tablet Oral , Taking Gabapentin 600 MG Tablet Oral , Taking sulfaSALAzine 500 MG Tablet Oral , Taking DULoxetine HCl 60 MG Capsule Delayed Release Particles Oral , Taking hydrOXYzine HCl 25 MG Tablet Oral , Taking Omeprazole 20 MG Capsule Delayed Release Oral , Taking Baclofen 10 MG Tablet Oral , Taking predniSONE 5 MG Tablet Oral , Discontinued Zolpidem Tartrate 5 MG Tablet Oral , Discontinued Ozempic (0.25 or 0.5 MG/DOSE) 2 MG/3ML Solution Pen-injector Subcutaneous , Notes to Pharmacist: *Pick strength-form from [facility] for eRX*, Discontinued FLUZONE QUAD (PF) 60 MCG (15 MCG X 4)/0.5 ML IM SYRINGE , Notes to Pharmacist: *Reorder from [facility] for eRx and Interaction Alerts*, Discontinued Doxycycline Hyclate 100 MG Tablet Oral , Discontinued Lisinopril-hydroCHLOROthiazide 20-25 MG Tablet Oral , Discontinued Methotrexate 2.5 MG Tablet Oral , Discontinued Escitalopram Oxalate 20 MG Tablet Oral , Discontinued FLUZONE QUAD (PF) 60 MCG (15 MCG X 4)/0.5 ML IM SYRINGE , Notes to Pharmacist: *Reorder from [facility] for eRx and Interaction Alerts*, Discontinued buPROPion HCl ER (SR) 100 MG Tablet Extended Release 12 Hour Oral , Discontinued Cholecalciferol 1.25 MG (80548 UT) Capsule Oral , Discontinued Lovastatin 20 MG Tablet Oral , Discontinued QUEtiapine Fumarate 100 MG Tablet Oral , Discontinued Taltz 80 mg/mL Solution Auto-injector Subcutaneous , Notes to Pharmacist: *Reorder from [facility] for eRx and Interaction Alerts*, Discontinued Ondansetron HCl 4 MG Tablet Oral , Discontinued Benzonatate 100 MG Capsule Oral , Discontinued Trintellix 10 MG Tablet Oral , Discontinued Lidocaine-Prilocaine 2.5-2.5 % Cream External , Discontinued Vilazodone HCl 20 MG Tablet Oral , Discontinued Azithromycin 250 MG Tablet Oral , Discontinued Ondansetron 8 MG Tablet Disintegrating Oral , Discontinued ProAir HFA 108 (90 Base) MCG/ACT Aerosol Solution Inhalation , Discontinued QUEtiapine Fumarate 50 MG Tablet Oral , Discontinued Ergocalciferol 1.25 MG (94659 UT) Capsule Oral , Discontinued Farxiga 5 MG Tablet Oral , Discontinued Calcitriol 0.25 MCG Capsule Oral , Discontinued Zolpidem Tartrate 10 MG Tablet 1 tablet at bedtime Oral once a day , Medication List reviewed and reconciled with the patient * Allergies:?Kombiglyze XR: Al lergy - Onset Date 08/19/2023. Objective: * Vitals:?BP:144/106mm Hg, HR: 112/min, Wt:233lbs, Wt-k.69 kg, Ht: 68.00 in, Ht-cm: 172.72 cm, BMI:35.42Index, Body Surface Area: 2.25. * Examination: ???Psychiatry: ?Appearance:?Appearance: alert,well-groomed, clean, appears well rested. No acute physical distress.?Behavior: eye contact good,cooperative, pleasant.?Abnormal body movements:?none.?Affect / mood:?appropriate, full range.?Attention:?normal in conversation.?Attitude:?cooperative.?Suicidal ideation:?none.?Memory status:?no impairment noted.?Degree of awareness of surroundings:?within normal limits.?Delusions:?no.?Hallucinations:?no.?Insight:?good.?Intellectual functioning:?no impairment noted.?Judgement:?good.?Orientation:?awake, alert and oriented x 3.?Perceptual disorders:?no perceptual disorder noted.?Psychomotor activity:?within normal range.?Speech / language:?appropriate pitch/modulation, clear and coherent, normal rate, volume, and articulation (RVR), proper grammar used.?Thought content:?appropriate.?Thought process:?intact.? Assessment: * Assessment: 1.?Major depressive disorder , recurrent, mild - F33.0 (Primary)???2.?Generalized anxiety disorder - F41.1???3.?Primary insomnia - F51.01??? Plan: * Treatment: 2.?Generalized anxiety disor kam? Notes: meds as above cont hydroxyzine send BID prn-encourage to minimize; has not been using often cont therapy?? 3.?Primary insomnia? Refill Zolpidem Tartrate Tablet, 10 MG, 1 tablet at bedtime, Oral, once a day, 30 days, 30 Tablet, Refills 3.?? Notes: cont zolpidem 10 mg qhspractice good sleep hygiene?? * Follow Up:?3 Months * Billing Information: * Visit Code:? 45014 OFFICE OUTPATIENT VISIT 25 MINUTES DETAILED HISTORY AND EXAM/MODERATE MEDICAL DECISION MAKING. * Procedure Codes:? * Sign off status: Completed true * Provider:?CHIDI PINTO Date:? 12/09/2023 Generated for Jacobo alvarado/Madie/Kaileesmitting on:?05/11/2024 12:05 PM CLINICAL CODER History and Physical Notes * Examination Category Sub-Category Detail Notes Category Not es Psychiatry Appearance: Appearance: alert, well-groomed, clean, appears well rested. No acute physical distress. Behavior: eye contact good, cooperative, pleasant Attitude: cooperative Psychomotor activity: within normal rang e Abnormal body movements: none Attention: normal in conversati on Degree of awareness of surroundings: wit hin normal limits Orientation: awake, alert and alvarado ented x 3 Affect / mood: appropriate, full ra nge Speech / language: appropriate pitch/mo dulation, clear and coherent, normal rate, volume, and articulation (RVR), proper grammar used Insight: good Judgement: good Thought process: intact Thought content: appropriate Perceptual disorders: no perceptual diso rder noted Suicidal ideation: none Intellectual functioning: no impairment noted Memory status: no impairment noted Delusions: no Hallucinations: no
--- OUTSIDE RECORDS SUMMARY | 2024-05-11 12:06 | XMS_ITS ---
Author Organization [facility] Address [address] [place] [address] Care Team Providers Care Motorcycle Sales Associate Name Role Phone Deborah BREEN, Jacki Primary Care Provider Un available Pamella Alonzo Unavailable [phone] REASON FOR VISIT callus, neuropathy Encounters Encounter Location Date Provider Diagnosis [facility] [address] [id number] 02/07/2024 Pamella Alonzo PLAN OF TREATMENT No Information Progress Notes * Karolina RAMOS LDOB: [birth year] (69 yo F)Acc No.[id number]:02/07/2024 Progress Notes Patient:??Karolina RAMOS Provider:??Pamella Alonzo DPM, DAB PM :1955?Age:68 Y?Sex:Fe male Date:02/07/2024 Address:[address] [place], [place] [address] Pcp:Jacki Cabrera MD Subjective: * Chief Complaints: * ?1. Callus, neuropathy. * Medical History:?? Objective: Assessment: Plan: * Treatment: * Billing Information: * Visit Code:?? * Procedure Codes:?? * WELDER Sign off status: Pending * Provider:??Pamella Alonzo DPM, DAB PM Date:??02/07/2024
--- OUTSIDE RECORDS SUMMARY | 2024-05-11 12:06 | XMS_ITS ---
Author Organization [facility] Address [address] [place] [address] Care Team Providers Care Banana Loader Name Role Phone Deborah BREEN, Jacki Primary Care Provider Un available Pamella Alonzo Unavailable [phone] REASON FOR VISIT callus, neuropathy Encounters Encounter Location Date Provider Diagnosis [place] [facility] [address] [id number] 01/10/2024 Pamella Alonzo PLAN OF TREATMENT No Information Progress Notes * Karolina RAMOS LDOB: [birth year] (69 yo F)Acc No.[id number]:01/10/2024 Progress Notes Patient:??Karolina RAMOS Provider:??Pamella Alonzo DPM, DAB PM :1955?Age:68 Y?Sex:Fe male Date:01/10/2024 Address:[address] [place], [place] [address] Pcp:Jacki Cabrera MD Subjective: * Chief Complaints: * ?1. Callus, neuropathy. * Medical History:?? Objective: Assessment: Plan: * Treatment: * Billing Information: * Visit Code:?? * Procedure Codes:?? * AL SURGERY DOCTOR Sign off status: Pending * Provider:??Pamella Alonzo DPM, DAB PM Date:??01/10/2024
--- OUTSIDE RECORDS SUMMARY | 2024-05-11 12:06 | XMS_ITS | Patient Health Record ---
Author Organization [facility] Address [address] [place] [address] Care Team Providers Care Home Theater Installer Name Role Phone Deborah BREEN, Jacki Primary Care Provider Un available Pamella Alonzo Unavailable [phone] REASON FOR REFERRAL No Information MEDICATIONS Medication SIG (Take, Route, Frequency, Duration) Notes Start Date End Date Status Effexor XR po @ HS *please review f or potential update for e-prescription and drug interaction check* Strength and Dose Form:75 mg capsule, extended release 07/04/2015 Active Insulin Lispro 2.00 over 24 hrs *please review for potential update for e-prescription and drug interaction check* 07/04/2015 Active multivitamin with iron twice daily *please r fara for potential update for e-prescription and drug interaction check* 07/04/2015 Active Calcium Carbonate 500mg po TID *please review for potential update for e-prescription and drug interaction check* 07/04/2015 Active Vitamin B-50 one daily *please review f or potential update for e-prescription and drug interaction check* Strength and Dose Form:Vitamin B Complex tablet 07/04/2015 Active Omeprazole 20 milligrams po qd once a day for 30 *please review for potential update for e-prescription and drug interaction check* 07/04/2015 Active Cyanocobalamin IM every month *please review f or potential update for e-prescription and drug interaction check* Strength and Dose Form:1000 mcg/mL solution 07/04/2015 Active Otezla 30 MG po bid Oral Strength and Dos e Form:30 mg tablet 07/04/2015 Active Neurontin 300 MG bid Oral Strength and Do se Form:300 mg capsule 07/04/2015 Active Lovastatin 20 MG po qd Oral Strength and Do se Form:20 mg tablet 07/04/2015 Active Lisinopril 10 MG 12.5 po qd Oral Strength and Do se Form:10 mg tablet 07/04/2015 Active Methotrexate Sodium (5 tabs) once a week *please review for potential update for e-prescription and drug interaction check* Strength and Dose Form:2.5 mg tablet 07/04/2015 Active Folic Acid 1 MG po qd Oral Strength and Dos e Form:1 mg tablet 07/04/2015 Active TraZODone Hydrochloride 100 milligrams @ HS 3 times a day for 30 *please review for potential update for e-prescription and drug interaction check* 07/04/2015 Active Encounters Encounter Location Date Provider Diagnosis Marcelo Bradford D[facility] [address] [facility] [address] [place] [phone] 01/10/2024 Pamella Bradford DPM [facility] [address] [place], [place] [id number] 02/07/2024 Pamella Alonzo PLAN OF TREATMENT No Information Insurance Providers Payer Name Payer Address Payer Phone Subscriber Number Group Number Insured Name Patient Relationship to Insured Coverage Start Date Coverage End Date [facility] [address] [place], [place] [id number] Karolina Ramos Self - patient is the insured [facility] [address] [address] [place] [address] [id number] Karolina Ramos Self - patient is the insured
--- OUTSIDE RECORDS SUMMARY | 2024-05-11 12:06 | XMS_ITS ---
Author Organization [facility] Address [address] [place] [address] Care Team Providers Care Copy Chief Name Role Phone Deborah BREEN, Jacki Primary Care Provider Un available Pamella Alonzo Unavailable [phone] REASON FOR VISIT Callus Encounters Encounter Location Date Provider Diagnosis [facility] [address] [phone] 05/10/2023 Pamella Alonzo PLAN OF TREATMENT No Information Progress Notes * Karolina RAMOS LDOB: [birth year] (69 yo F)Acc No.[id number]:05/10/2023 Progress Notes Patient:??Karolina RAMOS Provider:??Pamella Alonzo DPM, DAB PM :1955?Age:68 Y?Sex:Fe male Date:05/10/2023 Address:[address] [facility] Pcp:Jacki Cabrera MD Subjective: * Chief Complaints: * ?1. Callus. * Medical History:?? Objective: Assessment: Plan: * Treatment: * Billing Information: * Visit Code:?? * Procedure Codes:?? 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
--- OUTSIDE RECORDS SUMMARY | 2024-05-11 12:07 | XMS_ITS | Encounter Summary ---
Author Organization [facility] Address [address] 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 [address] [place] [address] Leslie Gauthier MD [address] [facility] [address] [place] [address] Gigi Zaarte, [address] [place] [address] Anesthesia Record Procedure Summary Procedure Name Responsible Anesthesiologist Anesthesia Start Time Anesthesia Stop Time ARTHROPLASTY TOTAL KNEE REVISION HINGED KNEE (Right: Knee) Leslie Gauthier MD 11/03/14 0636 11/03/14 0907 Events Date Time Event Comment 11/03/2014 0613 0636 An Start 0636 An Start Data 0640 PT Reassessment Patient and Vital Signs reassessed prior to induction. 0643 An Induction 0643 An Intubation 0705 An Tourn Inflated 350mmhg 0823 An Tourn Deflated 0857 An Emergence 0858 Extubation 0858 an stop data 0858 Elect Sign The providers l isted as staff are the responsible providers for the case. 0858 ANPTO2 0906 Handoff Handoff include d discussion of Intraoperative anesthetic management, issues, concerns and expectations/plans for the early post-procedure period. There was an opportunity for questions and the receiving team acknowledged understanding of the handoff. 0907 An Stop Meds Name Total fentaNYL (SUBLIMAZE) 50 mcg/mL injection 100 mcg lidocaine 2% injection (20 mg/mL) 50 mg propofol (DIPRIVAN) 10 mg/mL injection 2 00 mg succinylcholine (ANECTINE) 20 mg/mL inje ction 100 mg rocuronium (ZEMURON) 10 mg/mL injection 30 mg glycopyrrolate (ROBINUL) 0.2 mg/mL injec tion 0.6 mg ondansetron (ZOFRAN) 2 mg/mL injection 4 mg neostigmine (PROSTIGMIN) 1 mg/mL injecti on 3 mg esmolol (BREVIBLOC) 10 mg/mL injection 5 0 mg lactated ringers infusion 1,000 mL * Agents Name Insp. N2O Exp. Sevoflurane O2 Air Insp. Sevoflurane * Blood No blood administrations on file. Lines, Drains, and Airways Type Details Placement Removal Peripheral IV Date: 11/03/14; Time : 0525; Orientation: Left; Placed By: Dilma; Tolerance: Well 11/03/14 0525 by Gris Roque RN 11/07/14 1130 by Simin Jaeger RN ETT Date: 11/03/14; Time : 0643; Vent: mask not attempted; Induction: Standard IV, Cricoid pressure, Rapid Sequence; Blade Type: Perla; Blade Size: 3; Laryngoscopy View: Grade 1 (full cords); Intubation Adjuncts: Stylet; Tube: Endotracheal Tube; Placement: Oral; Tube Type: Cuffed-inflated; Tube Size(mm): 7.5 MM; Depth of Insertion: 20 CM; Measured From: lips; Cuff Infated: Air; Cuff Vol(mL): 5 mL; Verified By: Direct visualization, Bilateral breath sounds, Chest Auscultation, CO2 Monitor; Reason: small mouth opening, obesity 11/03/14 0643 by Sarah Ba APRN-MAUREEN 11/03/14 0858 by Sarah Ba APRN-MAUREEN Urethral Catheter 11/03/14; 0646; Surg patrick; Mitra Clark RN; 16; General Anesthesia; 11/05/14; 0600 11/03/14 0646 by Mitra Anderson RN 11/05/14 06 by Kendal Deleon RN RETIRED Procedural Site 11/03/14; 0706; Right; Knee; 11/07/14; 204611/03/14 07 by Mitra Anderson RN 11/07/142046 by Generic, Auto Release documented in this encounter Social History Tobacco Use Types Packs/Day Years Used Date Smoking Tobacco: Former Cigarettes 1 19 1 - 02/17/2013 Comments:5 cigarettes per da y Alcohol Use Standard Drinks/Week Comments No 0 (1 standard drink = 0.6 oz pur e alcohol) occasional Sex and Gender Information Value Date Recorded Sex Assigned at Not on file Gender Identity Not on file Sexual Orientation Not on file documented as of this encounter Progress Notes * Sarah Ba APRN-CRNA - 11/03/2014 10:01 AM CDT ANESTHESIA POSTPROCEDURE EVALUATION Karolina Ramos is a 59 y.o. female Temp: 35.6 ??C Pulse: 72 Resp: 12 BP: 150/82 mmHg SpO2: 95 % Pain Rating Score #1: 3 Anesthesia Type: general Mental status: sufficiently recovered from acute administration of anesthesia to participate in theevaluation. Level of consciousness: awake No numbness, tingling or visual disturbances present. General appearance: well-appearing Respiratory function: natural airway. Cardiac: stable Pain: comfortable/acceptable PONV: None Postop hydration: adequate. Patient may be released from anesthesia care. A postop evaluation was performed on this patient with the following assessment: no apparent anesthesia complications documented in this encounter Procedure Notes * Leslie Gauthier MD - 11/03/2014 6:32 AM CDTAssociated Order(s): PERIPHERAL BLCOK Peripheral Block Patient Location: holding area Pre Procedure Indication: post-operative analgesia and at surgeon's request Preanesthetic Checklist: patient identified, IV checked, site marked, risks and benefits discussed,surgical consent verified, monitors and equipment checked, pre-op evaluation done, timeout performed, informed consent obtained and questions answered / anesthesia plan accepted Monitors: Pulse Ox Patient Condition: sedated, meaningful contact maintained Patient Position: supine Procedure Laterality: right Block Performed: femoral Prep: Chloraprep Sterile Field: sterile field established and sterile gloves Skin Numbed with: lidocaine 1% Needle Type: nerve stimulator Needle Gauge: 21 Needle Length: 100 mm Nerve Stimulator R Quadreceps twitch Loss of Stimulation at 0.32 mA Ultrasound guided Technique: in plane Visualization: Ultrasound image in chart Block Agent: bupivicaine 0.5% 30 mL Epinephrine in Block Agent: 5 mcg/ml (1/200,000) Events blood not aspirated injection not painful no injection resistance no paresthesia no other events Block Start Time: 11/03/2014 6:22 AM Block End Time: 11/03/2014 6:32 AM Block Performed by: mian Gauthier Pt tolerated procedure well, no problems. documented in this encounter Consult Notes * Leslie Gauthier MD - 10/18/2014 2:11 PM CDT Pre-anesthesia Evaluation Procedure(s): ARTHROPLASTY TOTAL KNEE REVISION HINGED KNEE (Right Knee) Vital Signs: BMI: Estimated body mass index is 48.82 kg/(m^2) as calculated from the following: Height as of 05/28/08: 1.727 m (5' 8 ). Weight as of 05/28/08: 145.605 kg (321 lb). History: Past Medical History Diagnosis Date ??? Arthritis rheumatoid ??? Edema bilateral ankles ??? MRSA (methicillin resistant Staphylococcus aureus) post right foot surgery ??? Psoriasis right leg, both elbows, scalp ??? Constipation ??? Sleep apnea uses cpap machine ??? Hypertension ??? Overweight, obesity and other hyperalimentation ??? Depression ??? GERD (gastroesophageal reflux disease) Past Surgical History Procedure Laterality Date ??? Arthroplasty 2006 left ??? Bunionectomy 2007 right ??? Bunionectomy 1993 left ??? Tubal ligation, laparoscopic 1976 ??? Breast reduction 1993 bilat ??? Back surgery 1995 [id number] ??? Ankle fracture tx 1999 right ??? Ankle fracture tx 1999 hardware removed ??? Salpingo-oophorectomy 2004 bilat ??? Arthroplasty 2008 right knee,2008 ??? Knee arthroscopy 1995 left ??? Knee arthroscopy 1996 right ??? Hysterectomy 1988 vaginal reports that she quit smoking about 20 months ago. Her smoking use included Cigarettes. She has a 19 pack-year smoking history. She does not have any smokeless tobacco history on file. She reports that she does not drink alcohol or use illicit drugs. Allergies: is allergic to penicillins. Medications: No prescriptions prior to admission No current facility-administered medications on file prior to encounter. Current Outpatient Prescriptions on File Prior to Encounter Medication Sig Dispense Refill ??? COLACE 100 MG CAPS Take 100 mg by mouth once daily as needed Physical Exam: NPO status: no solids since midnight, no liquids within 2 hours Oriented to person, place and time Airway: II Neck ROM: full Dental exam findings: dentures upper and caps/crowns lower Pulmonary exam: breath sounds CTA Heart sounds: S1 S2 Negative for anesthesia complications Positive for gastroesophageal reflux disease, well controlled Poor exercise tolerance ECG reviewed Chest x-ray reviewed Reviewed labs Patient history unchanged. Plan for Anesthesia: ASA Score: 3. Anesthesia plan: general Peripheral nerve block type: femoral Planned method of induction: intravenous Planned postop destination: PACU Anesthesia plan, risks and benefits discussed with patient Anesthesia consent: obtained Plan accepted yes Discussed anesthesia plan with: anesthesiologist and BALL ENDER. Other findings: > 4 mets of activity without SOB + Diabetes documented in this encounter Plan of Treatment Not on file documented as of this encounter Procedures Procedure Name Priority Date/Time Associated Diagnosis Comments PERIPHERAL BLOCK Routine 11/03/2014 6:35 AM CDT documented in this encounter Results * PERIPHERAL BLCOK (11/03/2014 6:35 AM CDT) Narrative Leslie Gauthier MD - 11/03/2014 6:35 AM CDT Leslie Gauthier MD ? 11/03/2014 ??6:35 AM Peripheral Block Patient Location: ??holding area Pre Procedure Indication: ??post-operative analgesia and at surgeon's request Preanesthetic Checklist: ??patient identified, IV checked, site marked, risks and benefits discussed, surgical consent verified, monitors and equipment checked, pre-op evaluation done, timeout performed, informed consent obtained and questions answered / anesthesia plan accepted Monitors: ??Pulse Ox Patient Condition: ??sedated, meaningful contact maintained Patient Position: ??supine Procedure Laterality: ??right Block Performed: ??femoral Prep: ??Chloraprep Sterile Field: ??sterile field established and sterile gloves Skin Numbed with: ??lidocaine 1% Needle Type: ??nerve stimulator Needle Gauge: ??21 Needle Length: ??100 mm Nerve Stimulator R Quadreceps twitch ? Loss of Stimulation at 0.32 mA Ultrasound guided Technique: ??in plane Visualization: ??Ultrasound image in chart Block Agent: ??bupivicaine 0.5% 30 mL Epinephrine in Block Agent: ??5 mcg/ml (1/200,000) Events blood not aspirated injection not painful no injection resistance no paresthesia no other events Block Start Time: ??11/03/2014 6:22 AM Block End Time: ??11/03/2014 6:32 AM Block Performed by: ??mian Gauthier Pt tolerated procedure well, no problems. Leslie Gauthier MD GENERAL ANESTHESIA O RDERABLES documented in this encounter Visit Diagnoses Not on filedocumented in this encounter Administered Medications Inactive Administered Medications - up to 3 most recent administrations Medication Order MAR Action Action Date Dose Rate Site esmolol (BREVIBLOC) injection PRN, Hypertension, Starting on Sat11/03/14 at 0711, Until Sat11/03/14 at 0907, Anesthesia Intra-op $ Given 11/03/2014 7:26 AM CDT 30 mg $ Given 11/03/2014 7:11 AM CDT 20 mg fentaNYL (SUBLIMAZE) injection PRN, Starting on Sat11/03/14 at 0643, Until Sat11/03/14 at 0907, Anesthesia Intra-op $ Given 11/03/2014 6:43 AM CDT 100 mcg glycopyrrolate (ROBINUL) injection PRN, Starting on Sat11/03/14 at 0853, Until Sat11/03/14 at 09, Anesthesia Intra-op $ Given 11/03/2014 8:53 AM CDT 0.6 mg lactated ringers infusion CONTINUOUS PRN, Starting on Sat11/03/14 at 0636, Until Sat11/03/14 at 09, Anesthesia Intra-op $ New Bag/Syringe 11/03/2014 8:29 AM CDT $ New Bag/Syringe 11/03/2014 6:36 AM CDT lidocaine (XYLOCAINE) 2 % injection PRN, Starting on Sat11/03/14 at 0643, Until Sat11/03/14 at 09, Anesthesia Intra-op $ Given 11/03/2014 6:43 AM CDT 50 m g neostigmine (PROSTIGMIN/BLOXIVERZ) injection PRN, Starting on Sat11/03/14 at 0853, Until Sat11/03/14 at 906, Anesthesia Intra-op $ Given 11/03/2014 8:53 AM CDT 3 mg ondansetron (ZOFRAN) injection PRN, Nausea/Vomiting, Starting on Sat11/03/14 at 0837, Until Sat11/03/14 at 906, Anesthesia Intra-op $ Given 11/03/2014 8:37 AM CDT 4 mg propofol (DIPRIVAN) injection PRN, Starting on Sat11/03/14 at 0643, Until Sat11/03/14 at 09, Anesthesia Intra-op $ Given 11/03/2014 6:43 AM CDT 200 mg rocuronium (ZEMURON) injection PRN, Starting on Sat11/03/14 at 0649, Until Sat11/03/14 at 906, Anesthesia Intra-op $ Given 11/03/2014 6:49 AM CDT 30 m g succinylcholine (ANECTINE) injection PRN, Starting on Sat11/03/14 at 0643, Until Sat11/03/14 at 09, Anesthesia Intra-op $ Given 11/03/2014 6:43 AM CDT 100 mg documented in this encounter Additional Health Concerns Infection Onset Date Last Indicated Resolved Time MRSA 01/23/2008 01/23/2008 03/16/2021 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
--- OUTSIDE RECORDS SUMMARY | 2024-05-11 12:07 | XMS_ITS | Patient Health Summary ---
Author Organization [facility] Address 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 This disclosure is being madepursuant to the Care Everywhere program and may not contain all information available regarding this patient. Last updated 18.[facility] Allergies * Povidone Iodine(Rash) -Medium Criticality * Metformin(Nausea and/or Vomiting) * Penicillins(Shortness of Breath,Rash,Unknown) -High Criticality Medications * Be aware that medications may not be up to date on this document. Alwaysverify current medications with the patient. * clobetasol (TEMOVATE) 0.05 % gel Apply to affected area as needed * folic acid (FOLVITE) 1 MG tablet Take 1 mg by mouth once daily * multivitamin with iron (ONE A DAY WITH IRON) tablet Take 1 Tab by mouth once daily * TALTZ 80 MG/ML auto-injector pen(Started 12/09/2018) 1 Dose * NARCAN 4 MG/0.1ML nasal spray(Started 09/10/2019) SYBIL REP ALN * oxyCODONE, immediate release, (ROXICODONE) 5 MG tablet(Started 03/22/2021) Take 1 (one) tablet by mouth every 4 hours as needed * acetaminophen (TYLENOL) 325 MG tablet(Started 03/22/2021) Take 2 (two) tablets by mouth every 6 hours as needed Maximum allowable Acetaminophen amount = 4 Grams (4000 mg) / 24 hours. * cyclobenzaprine (FLEXERIL) 10 MG tablet(Started 03/22/2021) Take 1 (one) tablet by mouth 2 times daily as needed * nicotine (NICODERM CQ) 14 MG/24HR patch(Started 2021) Apply 1 (one) patch to skin once daily * simvastatin (ZOCOR) 10 MG tablet(Started 03/22/2021) Take 1 (one) tablet by mouth at bedtime * lisinopril-hydroCHLOROthiazide (PRINZIDE; ZESTORETIC) 20-25 MG tablet(Started 03/22/2021) Take 1 (one) tablet by mouth once daily * polyethylene glycol 3350 (MIRALAX) 17 g packet(Started 2021) Take 17 (seventeen) g by mouth once daily * senna (SENOKOT) 8.6 MG tablet(Started 2021) Take 1 (one) tablet by mouth once daily * busPIRone (BUSPAR) 5 MG tablet(Started 03/22/2021) Take 1 (one) tablet by mouth 2 times daily * gabapentin (NEURONTIN) 600 MG tablet(Started 03/22/2021) Take 1 (one) tablet by mouth 3 times daily * DULoxetine (CYMBALTA) 60 MG capsule(Started 03/22/2021) Take 1 (one) capsule by mouth 2 times daily * escitalopram (LEXAPRO) 10 MG tablet(Started 03/22/2021) Take 1 (one) tablet by mouth once daily * traZODone (DESYREL) 100 MG tablet(Started 03/22/2021) Take 2 (two) tablets by mouth at bedtime * sulfaSALAzine (AZULFIDINE) 500 MG tablet(Started 03/22/2021) Take 1 (one) tablet by mouth 2 times daily * calcitriol (ROCALTROL) 0.25 MCG capsule(Started 03/22/2021) Take 1 (one) capsule by mouth once daily * baclofen (LIORESAL) 10 MG tablet(Started 03/22/2021) Take 1 (one) tablet by mouth at bedtime * omeprazole (PRILOSEC) 20 MG capsule(Started 03/22/2021) Take 1 (one) capsule by mouth at bedtime * Ergocalciferol (VITAMIN D2) 50 MCG (2000 UT)(Started 03/22/2021) Take 50,000 Units by mouth every 7 days * prochlorperazine (COMPAZINE) 5 MG tablet(Started 03/22/2021) Take 1 (one) tablet by mouth every 6 hours as needed for Nausea/Vomiting * lovastatin (MEVACOR) 20 MG tablet(Started 03/29/2021) * XTAMPZA ER 18 MG capsule(Started 03/29/2021) * methotrexate (RHEUMATREX) 2.5 MG tablet(Started 03/22/2021) Active Problems Problem Noted Date Diagnosed Date Acute midline thoracic back pain 03/18/2021 Sacral nerve stimulator present 03/18/2021 Sleep apnea 07/26/2009 S/P TKR (total knee replacement) 04/15/2008 Generalized anxiety disorder 12/12/2007 Depression 12/12/2007 Hypertension 12/12/2007 GERD (gastroesophageal reflux disease) 8 Psoriasis 12/12/2007 Rheumatoid arthritis 12/12/2007 MRSA (Methicillin Resistant Staphylococcus Aureu s) 12/12/2007 ERROL (obstructive sleep apnea) 12/12/2007 Other screening mammogram 12/12/2007 Pap smear, high-risk (screening, no prior abnorm ality) 12/12/2007 Chronic bilateral low back pain Immunizations * INFLUENZA VACCINE, TRIV. (AFLURIA, FLUZONE TRIVALENT; 6MO+) (IIV3)(Given 02/10/2008) * COVID CRISTINA PRIMARY 18+YR(Given 08/15/2020) * DT(Given 04/23/2002) * PNEUMOCOCCAL PPSV23(Given 08/13/2006) Social History Tobacco Use Types Packs/Day Years Used Date Smoking Tobacco: Every Day Cigarettes 0.5 19 Started: 02/17/1994; Last attempted to quit: 02/17/2013 Smokeless Tobacco: Never Comments: a couple cigarette s a day Alcohol Use Standard Drinks/Week Comments No 0 (1 standard drink = 0.6 oz pur e alcohol) occasional AUDIT-C Answer Date Recorded Q1: How often do you have a drink containing alc ohol? Never 03/22/2021 Q2: How many drinks containi ng alcohol do you have on a typical day when you are drinking? 1 or 2 03/22/2021 Q3: How often do you have six or more drinks on one occasion? Never 03/22/2021 Sex and Gender Information Value Date Recorded Sex Assigned at Not on file Gender Identity Not on file Sexual Orientation Not on file Last Filed Vital Signs Vital Sign Reading Time Taken Comments Blood Pressure 151/91 04/03/2021 11:[address] [facility] MECHANIC Pulse 116 04/03/2021 11:[address] L[employer] MECHANIC Temperature 36.8 ??C (98.2 ??F) 03/22/2021 8:21 AM CS T Respiratory Rate 18 03/22/2021 8:[address] LIGHT MECHANIC Oxygen Saturation 96% 04/03/2021 11:[address] LIGHT MECHANIC Inhaled Oxygen Concentration 100% 05/28/2008 1 :[address] LIGHT MECHANIC Weight 118.8 kg (262 lb) 04/03/2021 11:[address] LIGHT MECHANIC Height 172.7 cm (5' 8 ) 04/03/2021 11:[address] L[employer] MECHANIC Body Mass Index 39.84 04/03/2021 11:[address] LIGHT MECHANIC Medical Devices Implanted Type Area Mobile Heavy Equipment Mechanic Device Identifier Shelf Expiration Date Model / Serial / Lot Elliott Bone Palacos Sgl 1 X 40 Implanted:Qt y: 2 on 11/03/2014 by Marcus Hernandez MD at [facility] Right: Knee [employer] 01/04/2018 [id number] / / [id number] Size 5 Right A/P 62mm, M/L 70mm Legion Hk Femoral Assembly Implanted:Qt y: 1 on 11/03/2014 by Marcus Hernandez MD at [facility] Right: Knee 02/03/2021 [id number] / / [id number] Elliott Bone Palacos R Implanted:Qt y: 2 on 11/03/2014 by Marcus Hernandez MD at [facility] Right: Knee [employer] 05/06/2019 [id number] / / [id number] Legion Hk Hinge Knee Tibial Baseplate Implanted:Qt y: 1 on 11/03/2014 by Marcus Hernandez MD at [facility] Right: Knee 01/04/2023 [id number] / / [id number] 18mm Chester And Sleeve Kit Implanted:Qt y: 1 on 11/03/2014 by Marcus Hernandez MD at [facility] Right: Knee 01/04/2022 [id number] / / [id number] Size 4-5 Right 18mm Locking Screw Included Legion Hk Guided Motion Articular Insert Implanted:Qt y: 1 on 11/03/2014 by Marcus Hernandez MD at [facility] Right: Knee 11/03/2020 [id number] / / [id number] Straight 14mm X 160mm Legion Pressfit Stem Implanted:Qt y: 1 on 11/03/2014 by Marcus Hernandez MD at [facility] Right: Knee 09/03/2024 [id number] / / [id number] 5mm Size 5 Legion Hk Implanted:Qt y: 1 on 11/03/2014 by Marcus Hernandez MD at [facility] Right: Knee 08/05/2023 [id number] / / [id number] Straight 18mm X 160mm Legion Pressfit Stem Implanted:Qt y: 1 on 11/03/2014 by Marcus Hernandez MD at [facility] Right: Knee 05/06/2024 [id number] / / [id number] 10mm Size 5 Legion Hk Implanted:Qt y: 1 on 11/03/2014 by Marcus Hernandez MD at [facility] Right: Knee 05/06/2023 [id number] / / [id number] Lead Nrstm 60cm Penta 3mm Pdl 16 Chnl - [id number] Implanted:Qt y: 1 on 03/16/2021 by William Hammonds MD at [facility] Spine Thoracic [employer] 09/23/2022 [id number] / [id number] / Slnt Dura Duraseal Pg Trilysine Amine 5 Implanted:Qt y: 1 on 03/16/2021 by William Hammonds MD at [facility] Sp[facility] Thoracic [employer] Joel [id number] / / [id number] Description:BRIE Cable Nrstm Mult[employer] Trl - [id number] Implanted:Qt y: 1 on 03/16/2021 by William Hammonds MD at [facility] Sp[facility] Thoracic [employer] 11/02/2022 [id number] / [id number] / Description:BRIE Gntr Nrstm 1.95inx2.19i n Proclaim Elt - [id number] Implanted:Qt y: 1 on 03/16/2021 by William Hammonds MD at [facility] Spine Thoracic [employer] 02/14/2023 [id number] / [id number] / Description:BRIE Procedures * PATHOLOGY TISSUE(Performed 04/26/2023) Performed for Illness, unspecified * CARDIAC RHYTHM STRIP ORDER(Performed 03/20/2021) * SARS-COV-2 (COVID-19)+INFLU A+B PCR RAPID(Performed 03/20/2021) Performed for Acute midline thoracic back pain * CBC W/O DIFFERENTIAL(Performed 03/20/2021) Performed for Acute midline thoracic back pain * BASIC METABOLIC PANEL (CALCIUM TOTAL)(Performed 03/20/2021) Performed for Acute midline thoracic back pain * VITAMIN D 25-HYDROXY(Performed 03/19/2021) Performed for Vitamin D deficiency * HEMOGLOBIN A1C(Performed 03/19/2021) Performed for Pre-diabetes * CBC W/O DIFFERENTIAL(Performed 03/19/2021) Performed for Acute midline thoracic back pain * BASIC METABOLIC PANEL (CALCIUM TOTAL)(Performed 03/19/2021) Performed for Acute midline thoracic back pain * XR THORACIC SPINE 3VW(Performed 03/18/2021) Performed for Acute midline thoracic back pain * BLOOD TYPE VERIFICATION(Performed 03/18/2021) * URINALYSIS REFLEX TO MICROSCOPIC NO CULTURE(Performed 03/18/2021) * TYPE + SCREEN PANEL(Performed 03/18/2021) * PT-INR SLH(Performed 03/18/2021) * COMPREHENSIVE METABOLIC PANEL(Performed 03/18/2021) * CBC W AUTO DIFFERENTIAL(Performed 03/18/2021) * GLUCOSE - POINT OF CARE(Performed 03/16/2021) * FL LUPILLO SURGERY(Performed 03/16/2021) Performed for Pain * ENDOTRACHEAL TUBE NOTE(Performed 03/16/2021) * XR CHEST 1VW PORTABLE(Performed 03/16/2021) Performed for Preop examination * INSERTION/REPLACEMENT SPINAL CORD STIMULATOR(Performed 03/16/2021) Performed for Diagnosis unknown * LAMINECTOMY THORACIC(Performed 03/16/2021) Performed for Diagnosis unknown * GLUCOSE - POINT OF CARE(Performed 03/16/2021) * CARDIAC EKG ORDER(Performed 03/10/2021) * EEG(Performed 12/11/2016) Performed for Syncope, unspecified syncope type * HOLTER MONITOR(Performed 12/11/2016) Performed for Syncope, unspecified syncope type * IMAGING/RADIOLOGY/XRAY RESULTS ORDER(Performed 11/09/2014) * CARDIAC RHYTHM STRIP ORDER(Performed 11/09/2014) * LAB RESULTS ORDER(Performed 11/08/2014) * GLUCOSE - POINT OF CARE(Performed 11/07/2014) * PT-INR(Performed 11/07/2014) * GLUCOSE - POINT OF CARE(Performed 11/06/2014) * GLUCOSE - POINT OF CARE(Performed 11/06/2014) * GLUCOSE - POINT OF CARE(Performed 11/06/2014) * GLUCOSE - POINT OF CARE(Performed 11/06/2014) * PT-INR(Performed 11/06/2014) * GLUCOSE - POINT OF CARE(Performed 11/05/2014) * GLUCOSE - POINT OF CARE(Performed 11/05/2014) * GLUCOSE - POINT OF CARE(Performed 11/05/2014) * GLUCOSE - POINT OF CARE(Performed 11/05/2014) * B-TYPE NATRIURETIC PEPTIDE(Performed 11/05/2014) * MAGNESIUM BLOOD(Performed 11/05/2014) * T4 FREE(Performed 11/05/2014) * TSH(Performed 11/05/2014) * COMPREHENSIVE METABOLIC PANEL(Performed 11/05/2014) * CBC W AUTO DIFFERENTIAL(Performed 11/05/2014) * PT-INR(Performed 11/05/2014) * HEMATOCRIT(Performed 11/05/2014) * HEMOGLOBIN(Performed 11/05/2014) * GLUCOSE - POINT OF CARE(Performed 11/04/2014) * GLUCOSE - POINT OF CARE(Performed 11/04/2014) * GLUCOSE - POINT OF CARE(Performed 11/04/2014) * GLUCOSE - POINT OF CARE(Performed 11/04/2014) * PT-INR(Performed 11/04/2014) * HEMATOCRIT(Performed 11/04/2014) * HEMOGLOBIN(Performed 11/04/2014) * GLUCOSE - POINT OF CARE(Performed 11/03/2014) * CULTURE MSSA/MRSA(Performed 11/03/2014) * PT-INR(Performed 11/03/2014) * GLUCOSE - POINT OF CARE(Performed 11/03/2014) * GLUCOSE - POINT OF CARE(Performed 11/03/2014) * PERIPHERAL BLOCK(Performed 11/03/2014) * ARTHROPLASTY TOTAL KNEE REVISION(Performed 11/03/2014) Performed for Other complications due to internal joint prosthesis (HCC) * GLUCOSE - POINT OF CARE(Performed 11/03/2014) * XR CHEST 2VW(Performed 10/18/2014) Performed for Other specified pre-operative examination * PT-INR(Performed 10/18/2014) Performed for Other specified pre-operative examination * CBC W AUTO DIFFERENTIAL(Performed 10/18/2014) Performed for Other specified pre-operative examination * COMPREHENSIVE METABOLIC PANEL(Performed 10/18/2014) Performed for Other specified pre-operative examination * URINALYSIS REFLEX TO MICROSCOPIC NO CULTURE(Performed 10/18/2014) Performed for Other specified pre-operative examination * EKG 12-LEAD(Performed 10/18/2014) Performed for Pre-operative cardiovascular examination * CULTURE MSSA/MRSA(Performed 10/18/2014) Performed for Other specified pre-operative examination * C-REACTIVE PROTEIN(Performed 10/06/2014) Performed for Preoperative examination, unspecified * ERYTHROCYTE SEDIMENTATION RATE(Performed 10/06/2014) Performed for Preoperative examination, unspecified * DIFFERENTIAL MANUAL FLUID(Performed 10/06/2014) Performed for Preoperative examination, unspecified * CELL COUNT W DIFFERENTIAL FLUID(Performed 10/06/2014) Performed for Preoperative examination, unspecified * CULTURE FLUID+GRAM STAIN(Performed 10/06/2014) Performed for Preoperative examination, unspecified * CULTURE ANAEROBE(Performed 10/06/2014) Performed for Preoperative examination, unspecified * POLYSOMNOGRAPHY 4 OR MORE PARAMETERS(Performed 08/03/2009) * CARDIAC EKG ORDER(Performed 06/03/2008) * PT-INR(Performed 05/31/2008) Performed for Cmp Int Orth Dev/Gft NOS (HCC) * PT-INR(Performed 05/30/2008) Performed for Cmp Int Orth Dev/Gft NOS (HCC) * PT-INR(Performed 05/29/2008) Performed for Cmp Int Orth Dev/Gft NOS (HCC) * HGB HCT PANEL(Performed 05/29/2008) Performed for Cmp Int Orth Dev/Gft NOS (HCC) * OT EVAL AND TREAT(Performed 05/28/2008) * PULSE OXIMETRY, CONTINUOUS(Performed 05/28/2008) * OXYGEN(Performed 05/28/2008) * PT-INR(Performed 05/28/2008) Performed for Cmp Int Orth Dev/Gft NOS (HCC) * COMPREHENSIVE METABOLIC PANEL(Performed 05/28/2008) Performed for Cmp Int Orth Dev/Gft NOS (HCC) * CBC W AUTO DIFFERENTIAL(Performed 05/28/2008) Performed for Cmp Int Orth Dev/Gft NOS (HCC) * URINALYSIS REFLEX TO MICROSCOPIC NO CULTURE(Performed 05/28/2008) Performed for Cmp Int Orth Dev/Gft NOS (HCC) * CARDIAC EKG ORDER(Performed 04/20/2008) * IMAGING/RADIOLOGY/XRAY RESULTS ORDER(Performed 04/20/2008) * PT-INR(Performed 04/17/2008) Performed for Loc Osteoarth NOS-L/Leg * PT-INR(Performed 04/16/2008) Performed for Loc Osteoarth NOS-L/Leg * PT-INR(Performed 04/15/2008) Performed for Loc Osteoarth NOS-L/Leg * HGB HCT PANEL(Performed 04/15/2008) Performed for Loc Osteoarth NOS-L/Leg * GLUCOSE - POINT OF CARE(Performed 04/14/2008) Performed for Loc Osteoarth NOS-L/Leg * XR CHEST 2VW(Performed 04/12/2008) Performed for Preoperative Examination * PTT(Performed 04/12/2008) Performed for Preoperative Examination * PT-INR(Performed 04/12/2008) Performed for Preoperative Examination * COMPREHENSIVE METABOLIC PANEL(Performed 04/12/2008) Performed for Preoperative Examination * CBC W AUTO DIFFERENTIAL(Performed 04/12/2008) Performed for Preoperative Examination * URINE MICROSCOPIC ONLY(Performed 04/12/2008) Performed for Preoperative Examination * URINALYSIS NO MICROSCOPIC NO CULTURE(Performed 04/12/2008) Performed for Preoperative Examination * EKG 12-LEAD(Performed 04/12/2008) Performed for Preoperative Examination * URINALYSIS - POINT OF CARE(Performed 02/10/2008) * CT ABDOMEN PELVIS W CONTRAST(Performed 12/22/2007) Performed for Nausea Alone * LIPASE BLOOD(Performed 12/15/2007) Performed for Abdominal Pain, Unspecified Site * CBC W AUTO DIFFERENTIAL(Performed 12/15/2007) Performed for Abdominal Pain, Unspecified Site * COMPREHENSIVE METABOLIC PANEL(Performed 12/15/2007) Performed for Nausea with Vomiting * XR HAND LEFT 3VW OR MORE(Performed 10/10/2007) Performed for Joint Pain-Hand * XR CHEST 2VW(Performed 10/10/2007) Performed for Abn Findings-Lung Field * HEMOGLOBIN A1C(Performed 10/10/2007) * LIPID PROFILE(Performed 10/10/2007) * COMPREHENSIVE METABOLIC PANEL(Performed 10/10/2007) * HEMOGLOBIN A1C(Performed 01/17/2007) * COMPREHENSIVE METABOLIC PANEL(Performed 01/17/2007) * GROSS + MICRO EXAM(Performed 05/14/2006) * GROSS + MICRO EXAM(Performed 12/01/2003) * GROSS + MICRO EXAM(Performed 02/10/2003) * GROSS + MICRO EXAM(Performed 09/05/2000) * GROSS + MICRO EXAM(Performed 12/17/1995) Results * PATHOLOGY TISSUE (04/26/2023 10:[address] [employer] MECHANIC) Case Report Surgical Pathology Report ? Case: [id number] ? Authorizing Provider: ??Luis Colunga MD ??Collected: ? 04/26/2023 10:07 AM ? Ordering Location: ? [facility] ? Received: ?05/01/2023 03:34 PM ? Pathologist: ? Chaya Walton MD ? Specimen: ?Slide Consultation, Lymph node ? 05/02/2023 10:40 AM [facility] Final Diagnosis Lymph node, left axilla, needle core biopsy: - Follicular lymphoma, as sampled - See description 05/02/2023 10:40 AM [facility] Microscopic Description and Comment Sections demonstrate thin cores of lymphoid tissue with a vaguely nodular architecture. No germinal centers are present, but rather, the majority of cells are small and slightly cleaved/irregular. No necrosis or significant large cell infiltrate is present in the sampled tissue. To evaluate the immunoarchitecture, immunohistochemistry is performed at the [facility] Department of Pathology. The nodular areas consist of germinal center B-cells that express CD10, BCL-6, and CD20. These cells show aberrant co-expression of BCL-2. CD21 highlights that these cells are mostly localized in follicular dendritic cell meshworks. CD3 shows admixed small T-cells. Controls are appropriately reactive. Per report, flow cytometry ([facility], [address], [address], [place], [address]) shows 8% [id number] monoclonal B-cells (lambda light chain-restricted). In summary, this sampling of the left axillary lymph node shows involvement by follicular lymphoma. Grading of follicular lymphoma is recommended to be performed on an excisional biopsy specimen. Clinical correlation is advised. 05/02/2023 10:40 AM [facility] Clinical History 68 year old woman with FDG avid left axillary lymph nodes. 05/02/2023 10:40 AM [facility] Materials Received Received are 3 slides and 1 block labeled [id number] along with a copy of the outside pathology report. [place] [address]. All original materials are returned to the referring institution, along with a copy of our final report. 05/02/2023 10:40 AM [facility] Pathologist Location at [facility] 05/02/2023 10:40 AM [facility] Disclaimer The performance characteristics of all immunohistochemical and indirect immunofluorescence stains (if any) cited in this report were determined by the Histopathology Laboratory of [facility]. Some of these tests were developed by our own laboratory and have not been cleared or approved by the US Food and Drug Administration. The FDA does not require this test to go through premarket FDA review. These tests are used for clinical purposes. They should not be regarded as investigational or for research. This laboratory is certified under the Clinical Laboratory Improvement Amendments (CLIA) as qualified to perform high complexity clinical laboratory testing. This case has been personally reviewed and interpreted by the attending (teaching) pathologist. 05/02/2023 10:40 AM [facility] Embedded Images 05/02/2023 10:40 AM [facility] Pathology/Cytolo gy SURGICAL PATHOLOGY CONSULTATION AND REPORT ON REFERRED SLIDES PREPARED ELSEWHERE / Unknown 04/26/2023 10:[address] [employer] [facility]CH[employer]IC 05/01/2023 3:[address] [employer] [facility]CHANIC Vaughn Colunga MD LAB - PATHO LOGY/CYTOLOGY ORDERABLES Performing Organization Address City/State/[facility] Co de Phone Number [facility] [address] [phone] * CARDIAC RHYTHM STRIP ORDER (03/20/2021 5:[address] LIGHT MECHANIC) Only the most recent of2 resultswithin the time period is included. Narrative 03/20/2021 5:[address] [employer] MECHANIC Ordered by an unspecified provider. Scanned Document CARDIAC SERVICES ORD ERABLES * SARS-COV-2 (COVID-19)+INFLU A+B PCR RAPID (03/20/2021 1:[address] LIGHT MECHANIC) COVID-19 PCR Not detected Not detected 03/20/20 2:[address] [facility] MECH[facility]IC [facility] Influenza A Rapid SUNIL Not Detected Not Detected 03/20/2021 2:[address] [facility]IGHT MECHANIC [facility] Influenza B SUNIL Rapid Not Detected Not Detected 03/20/2021 2:[address] [employer]IGHT MECHANIC [facility] Microbiology SPECIMEN FROM NASOPHARYNGEAL STRUCTURE / Unknown Collection / Unknown 03/20/2021 1:[address] [employer] [facility]CHANIC 03/20/2021 1:[address] LIGHT MECHANIC Narrative [facility] - 03/20/2021 2:[address] LIGHT MECHANIC Influenza assay performed by Nucleic Acid Amplification. Results do not exclude the possibility of a mixed viral infection. NOTE: ??Detecting and identifying specific viral nucleic acids from individuals exhibiting signs and symptoms of respiratory infection aids in the diagnosis of respiratory infection, if used in conjunction with other clinical and laboratory findings. The results of this test should not be used as the sole basis for diagnosis, treatment, or patient management decisions. This nucleic acid amplification assay performance was validated by [facility]. This test has been authorized by the Food and Drug administration (FDA)under an Emergency??Use Authorization (EUA). This test has been validated in accordance with the FDA's guidance document Policy for Diagnostic Testing in Laboratories Certified to perform High Complexity Testing under CLIA prior to Emergency Use Authorization for Coronavirus Disease-2019 during the Public Health Emergency issued on July 04, 2019. FDA independent review of this validation is pending. This test is only authorized for the duration of time the declaration that circumstances exist justifying the authorization of emergency use of in vitro diagnostic tests for detection of SARS-CoV-2 virus and/or diagnosis of COVID-19 infection under section 564(b)(1) of the Act, 21 U.S.C 360bbb-3 (b)(1), unless the authorization is terminated or revoked sooner. Fact Sheets for this EUA assay are available upon request. Darrick Chávez MD LAB - MICROBIOLOGY O RDERABLES [facility] [address] [place] [address], [facility] [phone] * (ABNORMAL) CBC W/O DIFFERENTIAL (03/20/2021 2:[address] LIGHT MECHANIC) Only the most recent of2 resultswithin the time period is included. WBC 10.4 3.5 - 10.5 10? 3 /uL 03/20/2021 3:02 [address] [facility] RBC 4.11 3.80 - 5.20 10? 6 /uL 03/20/2021 3:02 AM [facility] Hemoglobin 12.0 12.0 - 15.6 g/dL 03/20/2021 3:02 AM [facility] Hematocrit 37.8 35.0 - 45.0 % 03/20/2021 3:02 AM [facility] MCV 92.0 80.7 - 98.3 fL 03/20/2021 3:02 AM [facility] MCH 29.2 26.7 - 34.0 pg 03/20/2021 3:02 AM [facility] MCHC 31.7 30.8 - 35.9 g/dL 03/20/2021 3:02 AM [facility] Platelet Count 194 150 - 400 10? 3 /uL 03/20/2021 3:02 AM [facility] RDW-SD 55.7(H) 36.0 - 50.0 fL 03/20/2021 3:02 AM [facility] RDW-CV 16.6(H) 11.2 - 14.8 % 03/20/2021 3:02 AM [facility] MPV 10.7 9.4 - 12.9 fL 03/20/2021 3:02 AM [facility] nRBC Absolute 0.00 0 10? 3 /uL 03/20/2021 3:02 AM [facility] nRBC Auto 0.0 0 /100 WBC 03/20/2021 3:02 AM [facility] Blood BLOOD SPECIMEN / Unknown Venipuncture / Unknown 03/20/2021 2:[address] LIGHT MECHANIC 03/20/2021 2:[address] LIGHT MECHANIC Reji Heller MD LAB - HEMATOLOGY ORDERABLES [facility] [address] [place] [address], [facility] [phone] * (ABNORMAL) BASIC METABOLIC PANEL (CALCIUM TOTAL) (03/20/2021 2:[address] LIGHT MECHANIC) Only the most recent of2 resultswithin the time period is included. BUN 10 7 - 26 mg/dL 03/20/2021 3:21 AM [facility] Creatinine 0.65 0.56 - 0.96 mg/dL 03/20/2021 3:21 AM [facility] Sodium 142 136 - 145 mmol/L 03/20/2021 3:21 AM [facility] Potassium 3.9 3.5 - 4.5 mmol/L 03/20/2021 3:21 AM [facility] Chloride 104 98 - 107 mmol/L 03/20/2021 3:21 AM [facility] CO2 28 22 - 29 mmol/L 03/20/2021 3:21 AM [facility] Glucose 153(H) 70 - 115 mg/dL 03/20/2021 3:21 AM [facility] Calcium 10.9(H) 8.4 - 10.2 mg/dL 03/20/2021 3:21 AM [facility] Anion Gap 14 8 - 18 03/20/2021 3:21 AM [facility] BUN/Creatinine Ratio 15 7 - 23 03/20/2021 3:21 AM [facility] Osmolality Calculated 296 270 - 300 mOsm/kg 03/20/2021 3:21 AM [facility] eGFR by CKD-EPI >90 >=90 mL/min/1.7 3 m2 03/20/2021 3:21 AM [facility] Blood BLOOD SPECIMEN / Unknown Venipuncture / Unknown 03/20/2021 2:[address] LIGHT MECHANIC 03/20/2021 2:56 AM [facility] Reji Heller MD LAB - CHEMISTRY O RDERABLES [facility] [address] [place] [address], [facility] [phone] * (ABNORMAL) HEMOGLOBIN A1C (03/19/2021 3:[address] LIGHT MECHANIC) Only the most recent of3 resultswithin the time period is included. Hemoglobin A1c 6.4(H) 4.4 - 6.3 % 03/19/2021 10:28 AM [facility] Estimated Average Glucose 137 mg/dL 03/19/2021 10:28 AM [facility] Comment: HbA1c Interpretation: Treatment target values recommended by ADA and other clinical organizations should be used to evaluate metabolic control in patients. Treatment Target Values: Normal : < 5.7% Pre-diabetes: 5.7-6.4% Diabetes: Equal to or greater than 6.5% Reference: [place] [employer] Standards of Care in Diabetes -2014 In patients 70 years and older consider HbA1c target range of 7.0-7.5% Reference: ??Diabetes Mellitus in Older People: Position Statement on behalf of the International Association of Gerontology and Geriatrics (IAGG), the Diabetes Working Constitution Party for Older People (EDWPOP), and the International Task Force of Experts in Diabetes. ??Doe Munroe, et al. J [employer] [place] [employer]. 2012 Test results diagnostic of diabetes should be repeated for confirmation. The Sebia Capillary 2 assay for the measurement of HbA1c is a National Glycohemoglobin Standardization Program (NGSP)certified method. Blood BLOOD SPECIMEN / Unknown Venipuncture / Unknown 03/19/2021 3:[address] LIGHT MECHANIC 03/19/2021 3:[address] LIGHT MECHANIC Reji Heller MD LAB - CHEMISTRY O RDERABLES Performing Organization Address [facility]/State/[facility] Co de Phone Number [facility] [address] [place] [address], [facility] [phone] * (ABNORMAL) VITAMIN D 25-HYDROXY (03/19/2021 3:[address] LIGHT MECHANIC) [facility] Vitamin D, 25 Hydroxy 26.0(L) 30.0 - 80.0 ng/mL 03/19/2021 4:34 AM [facility] Comment: The recommendations for 25-Hydroxy Vitamin D clinical decision points are as follows: ? Deficient: ? <20.0 ng/mL ? Insufficient: ??20.0 - 29.9 ng/mL ? Sufficient: ? > or =30.0 ng/mL If the 25-Hydroxy Vitamin D results are inconsitent with clinical evidence, it is recommended that follow-up testing using a method such as LC/MS/MS be performed to confirm the result. Reference: ?The Endocrine Society Clinical Practice Guidelines. 2011 ? Blood BLOOD SPECIMEN / Unknown Venipuncture / Unknown 03/19/2021 3:[address] LIGHT MECHANIC 03/19/2021 3:[address] LIGHT MECHANIC Reji Heller MD LAB - CHEMISTRY O RDERABLES Performing Organization Address City/State/[facility] Co de Phone Number [address] [address], [facility] [phone] * XR THORACIC SPINE 3VW (03/18/2021 7:[address] LIGHT MECHANIC) Anatomical Region Laterality Modality Spine Radiographic Rivka ging 03/18/2021 8:[address] LIGHT MECHANIC Impressions 03/19/2021 12:[address] LIGHT MECHANIC IMPRESSION: No acute fracture or subluxation identified. I, Dr. KATHERINE MAZARIEGOS have personally reviewed and interpreted this examination/study. This report was electronically signed by KATHERINE MAZARIEGOS ??on 03/19/2021 12:09 PM . Narrative 03/19/2021 12:[address] LIGHT MECHANIC EXAMINATION: XR THORACIC SPINE 3VW HISTORY: M54.6: Acute midline thoracic back pain COMPARISON: No prior study is available for comparison at the time of this dictation. FINDINGS: The vertebral bodies are normally aligned. There is no fracture or compression deformity. The intervertebral disc spaces are maintained. Spinal stimulator leads superimpose the lower thoracic spine. Procedure Note Katherine Mazariegos DO - 03/19/2021 EXAMINATION: XR THORACIC SPINE 3VW HISTORY: M54.6: Acute midline thoracic back pain COMPARISON: No prior study is available for comparison at the time ofthis dictation. FINDINGS: The vertebral bodies are normally aligned. There is no fracture or compression deformity. The intervertebral disc spaces are maintained. Spinal stimulator leads superimpose the lower thoracic spine. IMPRESSION: No acute fracture or subluxation identified. I, Dr. KATHERINE MAZARIEGOS have personally reviewed and interpreted this examination/study. This report was electronically signed by KATHERINE MAZARIEGOS on 03/19/2021 12:09 PM . Darrick Mancia MD DIAGNOSTIC IMAGING O RDERABLES * BLOOD TYPE VERIFICATION (03/18/2021 10:[address] LIGHT MECHANIC) ABO Rh O POS 03/18/2021 11:[address] [facility] Blood Bank BLOOD SPECIMEN / Unknown Lab Venipuncture / Unknown 03/18/2021 10:[address] LIGHT MECHANIC 03/18/2021 10:[address] LIGHT MECHANIC Provider Unknown LAB - BLOOD BANK ORD ERABLES [facility] [address] [place] [address], [facility] [phone] * (ABNORMAL) URINALYSIS REFLEX TO MICROSCOPIC NO CULTURE (03/18/2021 10:[address] LIGHT MECHANIC) Only the most recent of3 resultswithin the time period is included. Color UA Meredith(A) Straw, Yellow 03/18/2021 10:45 AM [facility] Clarity UA Slt Cloudy(A) Clear 03/18/2021 10:[address] [facility] Specific [place] UA 1.015 1.005 - 1.030 03/18/2021 10:45 AM [facility] pH UA 6.0 5.0 - 8.0 pH 03/18/2021 10:45 AM [facility] Protein UA Negative Negative 03/18/2021 10:45 AM [facility] Glucose UA Negative Negative 03/18/2021 10:45 AM [facility] Ketone UA Negative Negative 03/18/2021 10:45 AM [facility] Bilirubin UA Negative Negative 03/18/2021 10:45 AM [facility] Blood UA Negative Negative 03/18/2021 10:45 AM [facility] Nitrite UA Positive(A) Negative 03/18/2021 10:45 AM [facility] Leukocyte Esterase Negative Negative 03/18/2021 10:45 AM [facility] Urobilinogen UA 4.0(A) Negative mg/dL 03/18/2021 10:45 AM [facility] RBC UA 0-2 None Seen, 0-2, 3-5 /HPF 03/18/2021 10:45 AM [facility] WBC UA 0-5 None Seen, 0-5 /HPF 03/18/2021 10:45 AM [facility] Squamous Epithelial Cells UA 3-5 None Seen, 0-2, 3-5 /HPF 03/18/2021 10:45 AM [facility] Mucus UA 1+ /LPF 03/18/2021 10:45 AM [facility] Urine URINE SPECIMEN OBTAINED BY CLEAN CATCH PROCEDURE / Unknown Collection / Unknown 03/18/2021 10:[address] LIGHT MECHANIC 03/18/2021 10:27 AM [facility] Narrative [facility] - 03/18/2021 10:45 AM [facility] Darrick Mancia MD LAB - URINALYSIS ORD ERABLES [facility] [address] [place] [address], [facility] [phone] * PT-INR [facility] (03/18/2021 8:15 AM [facility]) PT 14.0 12.1 - 14.8 Seconds 03/18/2021 8:34 AM [facility] INR 1.1 See Comment 03/18/2021 8:34 AM [facility] Comment:The suggested therap eutic range for standard coumadin (warfarin) therapy is an INR of 2.0-3.0. For high-risk patients (Mechanical Mitral Valve Prosthesis, etc.), the suggested prophylactic therapeutic range is an INR of 2.5-3.5. Blood BLOOD SPECIMEN / Unknown Venipuncture / Unknown 03/18/2021 8:[address] LIGHT MECHANIC 03/18/2021 8:[address] LIGHT MECHANIC Darrick Mancia MD LAB - COAGULATION OR DERABLES [address] [address], [facility] [phone] * TYPE + SCREEN PANEL (03/18/2021 8:[address] LIGHT MECHANIC) [facility] Antibody Screen NEG 9:[address] [facility] ABO Rh O POS 03/18/2021 9:[address] [facility] Blood Bank BLOOD SPECIMEN / Unknown Venipuncture / Unknown 03/18/2021 8:[address] LIGHT MECHANIC 03/18/2021 8:[address] LIGHT MECHANIC Darrick Mancia MD LAB - BLOOD BANK ORD ERABLES Performing Organization Address City/[facility]/ZIP Co de Phone Number [facility] [address] [place] [address], [facility] [phone] * (ABNORMAL) CBC W AUTO DIFFERENTIAL (03/18/2021 8:[address] LIGHT MECHANIC) Only the most recent of6 resultswithin the time period is included. [facility] WBC 8.9 3.5 - 10.5 10? 3 /uL 03/18/2021 8:27 AM [facility] RBC 3.95 3.80 - 5.20 10? 6 /uL 03/18/2021 8:27 AM [facility] Hemoglobin 11.4(L) 12.0 - 15.6 g/dL 03/18/2021 8:27 AM [facility] Hematocrit 35.6 35.0 - 45.0 % 03/18/2021 8:27 AM [facility] MCV 90.1 80.7 - 98.3 fL 03/18/2021 8:27 AM [facility] MCH 28.9 26.7 - 34.0 pg 03/18/2021 8:27 AM [facility] MCHC 32.0 30.8 - 35.9 g/dL 03/18/2021 8:27 AM [facility] Platelet Count 139(L) 150 - 400 10? 3 /uL 03/18/2021 8:27 AM [facility] RDW-SD 54.5(H) 36.0 - 50.0 fL 03/18/2021 8:27 AM [facility] RDW-CV 16.6(H) 11.2 - 14.8 % 03/18/2021 8:27 AM [facility] MPV 10.7 9.4 - 12.9 fL 03/18/2021 8:27 AM [facility] nRBC Absolute 0.00 0 10? 3 /uL 03/18/2021 8:27 AM [facility] nRBC Auto 0.0 0 /100 WBC 03/18/2021 8:27 AM [facility] Neutrophils % 67.7 35.0 - 70.0 % 03/18/2021 8:27 AM [facility] Lymphocytes % 19.4(L) 20.0 - 43.0 % 03/18/2021 8:27 AM [facility] Monocytes % 11.6 5.0 - 13.0 % 03/18/2021 8:27 AM [facility] Eosinophils % 0.7 0.0 - 6.0 % 03/18/2021 8:27 AM [facility] Basophil % 0.3 0.0 - 2.0 % 03/18/2021 8:27 AM [facility] Neutrophils Absolute 6.0 1.6 - 7.0 10? 3 /uL 03/18/2021 8:27 AM [facility] Lymphocyte Absolute 1.7 1.1 - 3.9 10? 3 /uL 03/18/2021 8:27 AM [facility] Monocytes Absolute 1.03 0.26 - 1.07 10? 3 /uL 03/18/2021 8:27 AM [facility] Eosinophils Absolute 0.06 0.00 - 0.47 10? 3 /uL 03/18/2021 8:27 AM [facility] Basophils Absolute 0.03 0.00 - 0.08 10? 3 /uL 03/18/2021 8:27 AM [facility] Immature Granulocytes % 0.3 0.0 - 1.0 % 03/18/2021 8:27 AM [facility] Immature Granulocytes Absolute 0.03 03/18/2021 8:27 AM [facility] Immature Platelet Fraction 5.1 1.1 - 6.2 % 03/18/2021 8:27 AM [facility] Blood BLOOD SPECIMEN / Unknown Venipuncture / Unknown 03/18/2021 8:[address] LIGHT MECHANIC 03/18/2021 8:19 AM [facility] Darrick Mancia MD LAB - HEMATOLOGY ORD ERABLES [facility] [address] [place] [address], [facility] [phone] * (ABNORMAL) COMPREHENSIVE METABOLIC PANEL (03/18/2021 8:15 AM [facility]) Only the most recent of8 resultswithin the time period is included. BUN 8 7 - 26 mg/dL 03/18/2021 8:47 AM [facility] Creatinine 0.56 0.56 - 0.96 mg/dL 03/18/2021 8:47 AM [facility] Sodium 139 136 - 145 mmol/L 03/18/2021 8:47 AM [facility] Potassium 3.5 3.5 - 4.5 mmol/L 03/18/2021 8:47 AM [facility] Chloride 105 98 - 107 mmol/L 03/18/2021 8:47 AM [facility] CO2 25 22 - 29 mmol/L 03/18/2021 8:47 AM [facility] Glucose 126(H) 70 - 115 mg/dL 03/18/2021 8:47 AM [facility] Calcium 9.4 8.4 - 10.2 mg/dL 03/18/2021 8:47 AM [facility] Protein Total 5.8(L) 6.0 - 8.3 g/dL 03/18/2021 8:47 AM [facility] Albumin 2.7(L) 3.4 - 5.0 g/dL 03/18/2021 8:47 AM [facility] Bilirubin Total 0.7 0.2 - 1.2 mg/dL 03/18/2021 8:47 AM [facility] Alkaline Phosphatase 125 40 - 150 U/L 03/18/2021 8:47 AM [facility] ALT 22 5 - 55 U/L 03/18/2021 8:47 AM [facility] AST 34 5 - 34 U/L 03/18/2021 8:47 AM [facility] Anion Gap 13 8 - 18 03/18/2021 8:47 AM [facility] BUN/Creatinine Ratio 14 7 - 23 03/18/2021 8:47 AM [facility] Osmolality Calculated 288 270 - 300 mOsm/kg 03/18/2021 8:47 AM [facility] Albumin/Globulin Ratio 0.9(L) 1.1 - 2.3 03/18/2021 8:47 AM [facility] eGFR by CKD-EPI >90 >=90 mL/min/1.7 3 m2 03/18/2021 8:47 AM [facility] Blood BLOOD SPECIMEN / Unknown Venipuncture / Unknown 03/18/2021 8:[address] LIGHT MECHANIC 03/18/2021 8:[address] LIGHT MECHANIC Darrick Mancia MD LAB - CHEMISTRY MIMI LOTT [address] [address] [phone] * (ABNORMAL) GLUCOSE - POINT OF CARE (03/16/2021 1:[address] LIGHT MECHANIC) Only the most recent of20 resultswithin the time period is included. Glucose WB/POC 179(H) 70 - 106 mg/dL 03/16/2021 2:[address] LIGHT MECHANIC [facility] Specimen Type Cap Fingerstick 2020 2:[address] LIGHT MECHANIC [facility] Blood BLOOD SPECIMEN / Unknown 03/16/2021 1:[address] LIGHT MECHANIC 03/16/2021 2:[address] LIGHT MECHANIC William Hammonds MD LAB - POINT OF C ARE ORDERABLES [facility] [address] [place] [address] * FL LUPILLO SURGERY (03/16/2021 1:[address] LIGHT MECHANIC) Narrative [facility] - 03/16/2021 2:[address] LIGHT MECHANIC For details of this study, please see the providers note. William Hammonds MD FLUOROSCOPY MIMI LOTT [facility] [address] [place] [address] * ETT LINE PERFORMABLE (03/16/2021 11:[address] LIGHT MECHANIC) Narrative Ian Vásquez APRN-CRNA - 03/16/2021 11:[address] LIGHT MECHANIC Ian Vásquez APRN-CRNA ? 03/16/2021 11:17 AM Endotracheal Tube Placement: ? Patient Location: OR. Procedure: intubation ([id number]). Procedure Section: ?? Sedation: under general anesthesia. Indications for Airway Management: ??anesthesia Induction: rapid sequence Patient Position: ??supine Mask Ventilation: easy. Blade Type: Benito Blade Size: 3 Laryngoscopy View: grade 1 (full cords) Intubation Adjuncts: stylet Tube: endotracheal tube Placement: oral Tube type: cuff - inflated Tube Size (MM): 7 Depth of Insertion (CM): 22 Measured From: teeth Cuff volume (mL): ??5 Cuff Inflated With: air Placement Verified By: direct visualization, bilateral breath sounds, chest auscultation and CO2 monitor Tube secured with: ??adhesive tape. Dentition unchanged? ??Yes Staff Section ? Anesthesia Provider: Ian Vásquez APRN-CRNA, Performed the procedure Lionel Kang DO GENERAL ANESTHESIA O RDERABLES * XR CHEST 1VW PORTABLE (03/16/2021 10:[address] LIGHT MECHANIC) Anatomical Region Laterality Modality Chest Radiographic Rivka ging 03/16/2021 10:[address] LIGHT MECHANIC Narrative 03/16/2021 10:[address] LIGHT MECHANIC Exam: AP radiograph of the chest. History: Chest pain. Findings/Impression: No focal consolidation or pleural effusion is identified. The cardiac silhouette and mediastinal contours appear normal. *Reading Radiologist: Sut Drake on 03/16/2021 at 10:03 AM Procedure Note Stu Drake MD - 03/16/2021 Exam: AP radiograph of the chest. History: Chest pain. Findings/Impression: No focal consolidation or pleural effusion is identified. The cardiac silhouette and mediastinal contours appear normal. *Reading Radiologist: Stu Drake on 03/16/2021 at 10:03 AM William Hammonds MD DIAGNOSTIC IMAGI NG ORDERABLES * CARDIAC EKG ORDER (03/10/2021) Only the most recent of3 resultswithin the time period is included. 03/10/2021 Narrative 03/10/2021 Ordered by an unspecified provider. Scanned Document CARDIAC SERVICES ORD ERABLES * HOLTER MONITOR (12/11/2016 12:00 PM CDT) 12/11/2016 12:0 0 PM CDT Narrative Procedure Note Jayy Bass MD - 12/11/2016 11:59 PM CDT [facility] Cardio Pulmonary Services Holter Monitor Report Patient:KAROLINA RAMOS LPatient Type: CSN:[id number]/Age:13 1955 61 Stn/Rm/Bed:[facility] Sex/Race:F Unit #:[id number] Adrs:[address] Prim Phys: Attend Phys: [facility]//Zip:[place] [address] Admit Date:December 11, 2016Disch To: Disch Date: DATE TEST PERFORMED: 12/11/2016 24 hour monitor. Slowest heart rate 51, average 73, maximum 133. Rhythm is sinus. Infrequent APCs with small runs of SVT at a rate of 140 beats per minute.No evidence of atrial fibrillation. Rare APCs. The SVTs 3-4 beats only. No persistent sustained supraventriculartachycardia. No evidence of atrial fibrillation. Jayy Bass M.D., Anthony, Gavin NK/MODL /[id number] cc: Jayy Bass M.D., Anthony, Gavin BASS M.D., Anthony, GavinHOLTER MONITOR REPORT Lauro Babb MD CARDIAC SERVICES OR DERABLES Performing Organization Address City/State/[facility] Co de Phone Number [facility] * EEG (12/11/2016 12:00 PM CDT) 12/11/2016 12:0 0 PM CDT Narrative Procedure Note Chas Pitts MD - 12/11/2016 11:14 AM CDT [facility] Neurodiagnostics Laboratory EEG Patient:KAROLINA RAMOS LPatient Type: CSN:[id number]/Age:13 1955 61 Stn/Rm/Bed:[facility] Sex/Race:F Unit #:[id number] Adrs:[address] Prim Phys: Attend Phys: [facility]//Zip:[place] [address] Admit Date:December 11, 2016Disch To: Disch Date: EE. DATE OF SERVICE: 12/11/2016 REFERRING PHYSICIAN: Dr. Lauro Babb LOCATION: Outpatient. CLINICAL NOTE: The patient is 61-year-old female with history of syncopalepisode, diabetes mellitus, hypertension, currently on lovastatin,Cymbalta, lisinopril, Neurontin, Otezla, omeprazole, trazodone,methotrexate, and vitamin B12. This is a 21-channel recording done in theNeurodiagnostic Lab using 10-20 system electrode placement. EEG DESCRIPTION: During wakefulness, the background activity consists ofposterior dominant alpha rhythm at 10 hertz with an amplitude of 15-30microvolts, which appears mildly formed and reactive to eye opening.Anteriorly, low amplitude mixed frequency activity was seen.Hyperventilation not performed. The patient did not progress to stage 2sleep. However was noted to be intermittently drowsy, during whichattenuation of background activity was seen. Photic stimulation performedduring which no significant abnormal background changes were noted. Noappreciable driving response was seen. IMPRESSION: This is a normal EEG obtained during awake and drowsystates. Chas Pitts M.D. SN/MODL /[id number] cc: Ladarius Harris M.D.EEG REPORT Lauro Babb MD NEUROLOGY ORDERABLE S [facility] * IMAGING/RADIOLOGY/XRAY RESULTS ORDER (11/09/2014 6:02 AM CDT) Only the most recent of2 resultswithin the time period is included. Anatomical Region Laterality Modality Other Narrative 11/09/2014 6:02 AM CDT Ordered by an unspecified provider. Scanned Document IMAGING * LAB RESULTS ORDER (11/08/2014 10:35 PM CDT) Narrative 11/08/2014 10:35 PM CDT Ordered by an unspecified provider. Scanned Document LAB - THERAPEUTIC DR MONITORING ORDERABLES * (ABNORMAL) PT-INR (11/07/2014 4:23 AM CDT) Only the most recent of14 resultswithin the time period is included. PT 14.0(H) 9.5 - 11.6 sec 11/07/2014 5:05 AM CDT [facility] INR 1.4(H) 0.9 - 1.1 11/07/2014 5:05 AM CDT [facility] Blood BLOOD SPECIMEN / Unknown Lab Venipuncture / Unknown 11/07/2014 4:23 AM CDT 11/07/2014 4:49 AM CDT Narrative [facility] - 11/07/2014 5:05 AM CDT Conventional Warfarin Anticoagulant Therapy: INR Reference Range: ??2.0-3.0 Intensive Warfarin Anticoagulant Therapy: INR Reference Range: ? 2.5-3.5 Becky HayesD LAB - COAGULATIO N ORDERABLES Performing Organization Address City/[facility] Co de Phone Number [facility] [address] [place] [address] * (ABNORMAL) HEMATOCRIT (11/05/2014 4:29 AM CDT) Only the most recent of2 resultswithin the time period is included. Hematocrit 33.1(L) 35.9 - 45.5 % 11/05/2014 5:11 AM CDT [facility] Blood BLOOD SPECIMEN / Unknown Lab Venipuncture / Unknown 11/05/2014 4:29 AM CDT 11/05/2014 4:51 AM CDT Marcus Hernandez MD LAB - HEMATOLOGY OR DERABLES Performing Organization Address [facility] Co de Phone Number [facility] [address] [place] [address] * (ABNORMAL) HEMOGLOBIN (11/05/2014 4:29 AM CDT) Only the most recent of2 resultswithin the time period is included. Hemoglobin 10.9(L) 12.0 - 15.6 gm/dL 11/05/2014 5:11 AM CDT [facility] Blood BLOOD SPECIMEN / Unknown Lab Venipuncture / Unknown 11/05/2014 4:29 AM CDT 11/05/2014 4:51 AM CDT Marcus Hernandez MD LAB - HEMATOLOGY OR DERABLES Performing Organization Address City/[facility] Co de Phone Number [facility] [address] [place] [address] * B-TYPE NATRIURETIC PEPTIDE (11/05/2014 4:29 AM CDT) BNP 32 0 - 100 pg/mL 11/05/2014 5:43 AM CDT [facility] Blood BLOOD SPECIMEN / Unknown Lab Venipuncture / Unknown 11/05/2014 4:29 AM CDT 11/05/2014 4:51 AM CDT Kana Garcia MD LAB - CHEMISTRY MIMI LOTT [facility] [address] [place] [address] * MAGNESIUM BLOOD (11/05/2014 4:29 AM CDT) Magnesium 2.0 1.6 - 2.6 mg/dL 11/05/2014 5:16 AM CDT [facility] Blood BLOOD SPECIMEN / Unknown Lab Venipuncture / Unknown 11/05/2014 4:29 AM CDT 11/05/2014 4:52 AM CDT Kana Garcia MD LAB - CHEMISTRY MIMI LOTT [facility] [address] [place] [address] * TSH (11/05/2014 4:29 AM CDT) TSH 1.75 0.358 - 3.740 uIU/mL 11/05/2014 5:21 AM CDT [facility] Blood BLOOD SPECIMEN / Unknown Lab Venipuncture / Unknown 11/05/2014 4:29 AM CDT 11/05/2014 4:52 AM CDT Kana Garcia MD LAB - CHEMISTRY MIMI LOTT [facility] [address] [place] [address] * T4 FREE (11/05/2014 4:29 AM CDT) T4 Free 1.29 0.65 - 1.34 ng/dL 11/05/2014 5:14 AM CDT [facility] Blood BLOOD SPECIMEN / Unknown Lab Venipuncture / Unknown 11/05/2014 4:29 AM CDT 11/05/2014 4:52 AM CDT Kana Garcia MD LAB - CHEMISTRY MIMI LOTT Performing Organization Address City/[facility]/ZIP Co de Phone Number [facility] [address] [place] [address] * CULTURE MSSA/MRSA (11/03/2014 4:03 PM CDT) Only the most recent of2 resultswithin the time period is included. Pathologist [facility] Culture Negative for MRSA/MSSA BIANKA 11/04/2014 8:24 PM CDT [facility] MICROBIOLOGY Microbiology SPECIMEN FROM NASAL FOSSAE / Unknown 11/03/2014 4:03 PM CDT 11/03/2014 4:16 PM CDT Marcus Hernandez MD LAB - MICROBIOLOGY ORDERABLES Performing Organization Address [facility] Co de Phone Number [facility] MICROBIOLOGY [address] [place] [address], [facility] [phone] * PERIPHERAL BLCOK (11/03/2014 6:35 AM CDT) [...] Leslie Gauthier MD GENERAL ANESTHESIA O RDERABLES * XR CHEST PA AND LATERAL (10/18/2014 1:54 PM CDT) Only the most recent of3 resultswithin the time period is included. Anatomical Region Laterality Modality Chest Radiographic Rivka ging 10/18/2014 2:38 PM CDT Impressions 10/18/2014 2:39 PM CDT No active disease. Narrative 10/18/2014 2:39 PM CDT Chest PA and lateral views. Indications: Preop for knee surgery PA and lateral views of the chest were obtained. Comparison: 2007 The heart is not enlarged. The aorta is normal in caliber. ?The lungs are ? clear. ??No confluent infiltrate or effusion is seen . There is no pneumothorax. The pulmonary vascularity is normal. No mass or adenopathy is seen. Procedure Note Fan Lloyd MD - 10/18/2014 Chest PA and lateral views. Indications: Preop for knee surgery PA and lateral views of the chest were obtained. Comparison: 2007 The heart is not enlarged. The aorta is normal in caliber. The lungs are clear. No confluent infiltrate or effusion is seen . There is no pneumothorax. The pulmonary vascularity is normal. No mass or adenopathy is seen. IMPRESSION No active disease. Marcus Hernandez MD DIAGNOSTIC IMAGING ORDERABLES * EKG 12-LEAD (10/18/2014 1:08 PM CDT) Only the most recent of2 resultswithin the time period is included. Ventricular Rate 65 BPM [facility] Atrial Rate 65 BPM [facility] P-R Interval 162 ms [facility] QRS Duration ms 100 ms [facility] Q-T Interval ms 422 ms [facility] QTC Calculation (Bezet) 438 ms [facility] Calculated P [place] 44 degrees [facility] Calculated R [place] 38 degrees [facility] Calculated T [place] 24 degrees [facility] Interpretation EKG Normal sinus rhythm Normal ECG No previous ECGs available Confirmed by MD VIGNESH, NELY ([id number]) on 10/19/2014 9:54:30 AM [facility] 10/18/2014 1:08 PM CDT 10/19/2014 9:54 AM CDT Marcus Hernandez MD ECG ORDERABLES Performing Organization Address [facility]/ZIP Co de Phone Number [facility] * (ABNORMAL) C-REACTIVE PROTEIN (10/06/2014 3:44 PM CDT) [facility] C-Reactive Protein 1.66(H) <0.30 mg/dL 10/06/2014 5:00 PM CDT [facility] Blood BLOOD SPECIMEN / Unknown Lab Venipuncture / Unknown 10/06/2014 3:44 PM CDT 10/06/2014 4:37 PM CDT Marcus Hernandez MD LAB - CHEMISTRY ORD ERABLES [facility] [address] [place] [address] * SED RATE WESTERGREN (10/06/2014 3:44 PM CDT) Pathologist [facility] Erythrocyte Sedimentation Rate Westergren 28 0 - 30 mm/hr 10/06/2014 6:14 PM CDT [facility] Blood BLOOD SPECIMEN / Unknown Lab Venipuncture / Unknown 10/06/2014 3:44 PM CDT 10/06/2014 4:37 PM CDT Marcus Hernandez MD LAB - HEMATOLOGY OR DERABLES Performing Organization Address [facility] Co de Phone Number [facility] [address] [place] [address] * (ABNORMAL) DIFFERENTIAL MANUAL FLUID (10/06/2014 2:50 PM CDT) Total Nucleated Cells Fluid 3,404(H) 0 - 5 x10^6/L 10/06/2014 9:43 PM CDT [facility] Neutrophils % Fluid 2 % 10/06/2014 9:43 PM CDT [facility] Lymphocytes % Fluid 84 % 10/06/2014 9:43 PM CDT [facility] Monocytes % Fluid 12 % 10/06/2014 9:43 PM CDT [facility] Mesothelial Cell Fluid 2 % 10/06/2014 9:43 PM CDT [facility] Cells Counted Fluid 100 10/06/2014 9:43 PM CDT [facility] Fluid SYNOVIAL FLUID / Unknown 10/06/2014 2:50 PM CDT 10/06/2014 4:37 PM CDT Marcus Hernandez MD LAB - BODY FLUID OR DERABLES Performing Organization Address [facility] Co de Phone Number [facility] [address] [place] [address] * CULTURE FLUID+GRAM STAIN (10/06/2014 2:50 PM CDT) Culture No Growth BIANKA 10/13/2014 12:23 PM CDT [facility] MICROBIOLOG[facility] Gram Stain Light White blood cells 10/13/2014 12:23 PM CDT [facility] MICROBIOLOGY Gram Stain No organisms seen 10/13/2014 12:23 PM CDT [facility]CRO[facility]OLOG[facility] Fluid SYNOVIAL FLUID / Unknown 10/06/2014 2:50 PM CDT 10/06/2014 4:39 PM CDT Marcus Hernandez MD LAB - MICROBIOLOGY ORDERABLES Performing Organization Address City/[facility]/ZIP Co de Phone Number [facility] MICROBIOLOGY [address] [place], [place] [id number] [place] [address] * CULTURE ANAEROBE (10/06/2014 2:50 PM CDT) Culture No anaerobic organisms isolated BIANKA 10/14/2014 4:14 PM CDT [facility] MICROBIOLOGY Microbiology SYNOVIAL FLUID / Unknown 10/06/2014 2:50 PM CDT 10/06/2014 4:39 PM CDT Marcus Hernandez MD LAB - MICROBIOLOGY ORDERABLES Performing Organization Address [facility] Co de Phone Number [facility] [address] [facility] [place], [place] [address] [phone] * CELL COUNT W DIFFERENTIAL FLUID (10/06/2014 2:50 PM CDT) Fluid Type Synovial 10/06/2014 5:09 PM CDT [facility] Character Fluid Turbid 10/06/2014 5:09 PM CDT [facility] Color Fluid Yellow 10/06/2014 5:09 PM CDT [facility] Total Nucleated Cells Fluid 3,404 x10^6/L 10/06/2014 5:09 PM CDT [facility] RBC Fluid 7,000 x10^6/L 10/06/2014 5:09 PM CDT [facility] Comment Fluid Manual Diff to follow 10/06/2014 5:09 PM CDT [facility] Fluid SYNOVIAL FLUID / Unknown 10/06/2014 2:50 PM CDT 10/06/2014 4:37 PM CDT Marcus Hernandez MD LAB - BODY FLUID OR DERABLES Performing Organization Address [facility] Co de Phone Number [facility] [address] [place] [address] * POLYSOMNOGRAPHY (08/03/2009 8:28 AM CDT) Narrative Procedure Note Yumiko Lewis MD - 08/03/2009 8:[facility] ACCREDITED BY THE [employer] POLYSOMNOGRAPHY PATIENT NAME: KAROLINA RAMOS MR#: [id number] ROOM#: SEX: F REFERRING PHYSICIAN: YUMIKO LEWIS M.D.: 1955 DATE OF TEST: 07/26/09 STUDY NIGHT: 2 HEIGHT: 172.7 cm BODY MASS INDEX: 51.7 kg/m2 WEIGHT: 154.2 kg INDICATION FOR STUDY: THE PATIENT IS A 54-YEAR-OLD WHITE FEMALE, WITH PREVIOUSLY DIAGNOSED OBSTRUCTIVE SLEEP APNEA. REPEAT POLYSOMNOGRAPHYWITH CPAP TITRATION IS INDICATED TO DETERMINE OPTIMAL NASAL CPAP PRESSURE FOR TREATMENT OF OBSTRUCTIVE SLEEP APNEA. STUDY RESULTS: CPAP TITRATION WAS CARRIED OUT BY STANDARD PROTOCOL. OVERNIGHT SLEEP STUDY WAS PERFORMED MONITORING LEFT AND RIGHT EOG, SUBMENTAL EMG, INTERCOSTAL EMG, LEFT AND RIGHT ANTERIOR TIBIALIS EMG, FRONTAL, CENTRAL AND OCCIPITAL EEG, ELECTROCARDIOGRAM, CONTINUOUS AIRFLOW MEASUREMENT, CONTINUOUS NASAL PRESSURE TRANSDUCER, OVERNIGHT AUDIO AND VIDEO, AND SNORING MICROPHONE. HYPOPNEAS SCORED ACCORDING TO AASM RECOMMENDED HYPOPNEA DEFINITION (VIII.4A) PER THE AASM MANUAL FOR THE SCORING OF SLEEP AND ASSOCIATED EVENTS. THE RAW DATA FROM THEPOLYSOMNOGRAM WAS REVIEWED. TOTAL RECORDING TIME WAS 390.5 MINUTES, WITH A TOTAL SLEEP TIME OF 299.5 MINUTES. SLEEP EFFICIENCY WAS REDUCED AT 76.7%. SLEEP LATENCY WAS PROLONGED AT 82 MINUTES. REM LATENCY WAS NORMAL AT 69.5 MINUTES. SLEEP STAGING REVEALED 4.9% N1, 51.2% N2, 7.8% N3 AND 36.0% R. THERE WERE 2REM PERIODS NOTED. THERE WERE 40 STAGE SHIFTS, WITH 9 AWAKENINGS. SLEEP ARCHITECTURE IS ABNORMAL WITH THE REDUCTION IN SLEEP EFFICIENCY. THEREIS ALSO A PROLONGATION OF SLEEP LATENCY. THERE IS A REDUCTION IN SLOW WAVE SLEEP A PERCENTAGE OF TOTAL SLEEP TIME. THE PATIENT WAS STARTED ON NASAL CPAP. NASAL CPAP PRESSURES RANGING FROM8 CM TO 11 CM H2O PRESSURE WERE INVESTIGATED. OPTIMAL NASAL CPAP PRESSURE APPEARED TO BE 11 CM H2O PRESSURE. AT THIS LEVEL APNEA HYPOPNEA INDEXWAS 0. LOWEST SATURATION WAS 87.0%. BOTH REM AND NON-REM SLEEP WERE OBSERVED AT THIS LEVEL. SNORING WAS ABOLISHED WITH NASAL CPAP. THERE WERE 272 LEG MOVEMENTS NOTED, 59 OF WHICH WERE ASSOCIATED WITH AROUSALS. THERE WERE NO DYSRHYTHMIAS SEEN. THE PATIENT SPENT 100% OF HER TIME IN THE SUPINE POSITION. IMPRESSION: 1. OBSTRUCTIVE SLEEP APNEA - DIAGNOSED BY PREVIOUS POLYSOMNOGRAPHY. 2. SUCCESSFUL TREATMENT OF OBSTRUCTIVE SLEEP APNEA WITH NASAL CPAP, 11CM H2O PRESSURE. 3. PERIODIC LIMB MOVEMENTS DURING SLEEP. THE MAJORITY OF THESE WERE NOT ASSOCIATED WITH AROUSALS. RECOMMENDATIONS: 1. TREATMENT OF OBSTRUCTIVE SLEEP APNEA WITH NASAL CPAP, 11 CM H2O PRESSURE. 2. WOULD SUGGEST CLINICAL FOLLOW-UP OF LEG MOVEMENTS, THE MAJORITY OF THESE WERE NOT ASSOCIATED WITH AROUSALS. YUMIKO LEWIS M.D. T S:bs - [id number] cc: YUMIKO DOUGHERTY M.D. Yumiko Lewis MD SLEEP CENTER ORDERAB LES * (ABNORMAL) HGB HCT PANEL (05/29/2008 4:[address] LIGHT MECHANIC) Only the most recent of2 resultswithin the time period is included. Hemoglobin 11.2(DL) 11.7 - 15.5 gm/dL [facility] Hematocrit 35.0(DL) 36 - 46 % [facility] BLOOD SPECIMEN / Unknown 05/29/2008 4:[address] LIGHT MECHANIC 05/29/2008 5:[address] LIGHT MECHANIC Marcus Hernandez MD LAB - HEMATOLOGY OR DERABLES Performing Organization Address City/[facility]/ZIP Co de Phone Number [facility] [address] [place] [address] * PTT (04/12/2008 12:[address] LIGHT MECHANIC) PTT 31 24 - 33 sec [facility] ACCOUNT BILL Comment: This test has not been validated for monitoring unfractionated heparin therapy. aPTT-based therapeutic ranges for unfractionated heparin therapy have not been established. For general guidelines on Heparin monitoring, refer to the [facility] Directory of Services. BLOOD SPECIMEN / Unknown 04/12/2008 12:[address] LIGHT MECHANIC 04/12/2008 5:[address] LIGHT MECHANIC Narrative Resulting Agency Comment [facility] [address] ??[facility] [phone] Yumiko Dougherty MD LAB - COAGULATION OR DERABLES Performing Organization Address City/[facility]/ZIP Co de Phone Number [facility] ACCOUNT BILL * (ABNORMAL) URINALYSIS DIPSTICK AUTO (04/12/2008 12:[address] LIGHT MECHANIC) Urinalysis Gross Exam [facility] ACCOUNT BILL Specific [place] UA 1.020 1.005 - 1.030 [facility] ACCOUNT BILL pH UA 7.0 5.0 - 7.5 [facility] ACCOUNT BILL Color UA Yellow Yellow [facility] ACCOUNT BILL Appearance Turbid(A) Clear [facility] ACCOUNT BILL Leukocyte UA Negative Negative [facility] ACCOUNT BILL Protein UA Negative Negative/Tra ce [facility] ACCOUNT BILL Glucose UA Negative Negative [facility] ACCOUNT BILL Ketone UA Negative Negative [facility] ACCOUNT BILL Occult Blood Urine Negative Negative [facility] ACCOUNT BILL Bilirubin UA Negative Negative [facility] ACCOUNT BILL Urobilinogen 0.2 0.0 - 1.9 mg/dL [facility] ACCOUNT BILL Nitrite UA Negative Negative [facility] ACCOUNT BILL Microscopic Examination Urine See below: [facility] ACCOUNT BILL URINE SPECIMEN OBTAINED BY CLEAN CATCH PROCEDURE / Unknown 04/12/2008 12:[address] LIGHT MECHANIC 04/12/2008 5:[address] LIGHT MECHANIC Narrative Resulting Agency Comment [facility] [address] ??[facility] [phone] Yumiko Dougherty MD LAB - URINALYSIS ORD ERABLES [facility] ACCOUNT BILL * (ABNORMAL) URINALYSIS MICROSCOPIC ONLY (04/12/2008 12:[address] LIGHT MECHANIC) WBC UA None seen 0 - 5 /hpf [facility] ACCOUNT BILL RBC UA None seen 0 - 3 /hpf [facility] ACCOUNT BILL Epithelial Cells (non renal) >10(A) 0 - 10 /hpf [facility] ACCOUNT BILL Epithelial Cells (renal) NOT AVAIL. [facility] ACCOUNT BILL Casts ua NOT AVAIL. [facility] ACCOUNT BILL Casts UA NOT AVAIL. [facility] ACCOUNT BILL Crystals UA Present(A) N/A [facility] ACCOUNT BILL Crystals UA Amorphous Sediment N/A [facility] ACCOUNT BILL Mucus UA Present Not Estab. [facility] ACCOUNT BILL Bacteria UA Few None seen/Few [facility] ACCOUNT BILL Yeast UA NOT AVAIL. [facility] ACCOUNT BILL Sperm UA NOT AVAIL. [facility] ACCOUNT BILL Trichomonas UA NOT AVAIL. [facility] ACCOUNT BILL Comment Urine NOT AVAIL. [facility] ACCOUNT BILL 04/12/2008 12:[address] LIGHT MECHANIC 04/12/2008 5:[address] LIGHT MECHANIC Narrative [facility] ACCOUNT BILL - 04/13/2008 6:[address] LIGHT MECHANIC Additional Result Information EPITHELIAL CELLS (RENAL) /HPF URINE ([facility]): RESULT NOT AVAILABLE CASTS /LPF URINE ([facility]): RESULT NOT AVAILABLE CAST TYPE ??URINE ([facility]): RESULT NOT AVAILABLE YEAST ??URINE ([facility]): RESULT NOT AVAILABLE SPERM ??URINE ([facility]): RESULT NOT AVAILABLE TRICHOMONAS ??URINE ([facility]): RESULT NOT AVAILABLE COMMENT ??URINE ([facility]): RESULT NOT AVAILABLE Resulting Agency Comment [facility] [address] ??[facility] [phone] Yumiko Dougherty MD LAB - URINALYSIS ORD ERABLES [facility] ACCOUNT BILL * (ABNORMAL) URINALYSIS - POINT OF CARE (02/10/2008 10:05 AM CDT) Clarity UA POCT clear Color UA POCT yellow Leukocyte UA neg Negative Nitrite UA POCT neg Negative Urobilinogen UA POCT neg 0.1 - 1.0 EU/dL Protein UA POCT neg Negative pH UA 7.0 5.0 - 8.0 pH units Blood UA neg Negative Specific [place] UA POCT 1000(A) 1.002 - 1.030 Ketone UA neg Negative Bilirubin UA POCT neg Negative Glucose UA neg Negative Urine specimen (specimen) URINE / Unknown William Alcala APRN-SANITATION WORKER HOS[employer] MACH[employer]ERY LAB - POINT O F CARE ORDERABLES * CT ABDOMEN AND PELVIS WITH IV CONTRAST (12/22/2007 9:00 AM CDT) Anatomical Region Laterality Modality Abdomen, Pelvis Other 12/22/2007 9:00 AM CDT Narrative 12/22/2007 9:[address] abdomen and pelvis with contrast HISTORY- Left lower quadrant pain CT abdomen- TECHNIQUE- Helically acquired images were obtained from the hemidiaphragms to the iliac crest following the administration of IV and oral contrast. FINDINGS- The lung bases are essentially clear. The liver, spleen, adrenal glands, gallbladder, pancreas and kidneys appear normal. The abdominal aorta is normal in caliber. There is no retroperitoneal lymphadenopathy. IMPRESSION- No intra-abdominal abnormality. CT pelvis- TECHNIQUE- Helically acquired images were obtained from the iliac crest to the pelvic floor following the administration of IV and oral contrast. FINDINGS- There are a few sigmoid diverticula. No acute inflammatory changes are noted to suggest active diverticulitis. There is no free fluid in the pelvis. The patient is status post hysterectomy. IMPRESSION- Few ??diverticula. No evidence for active diverticulitis. ? Reading Radiologist- CARLA CHIN MD ? Releasing Radiologist- CARLA CHIN MD ? Released Date Time- 12/22/07928 ? [place] Coiler- KGM ? ADM- YUMIKO DOUGHERTY ? ATT- YUMIKO DOUGHERTY REF- YUMIKO DOUGHERTY ? CON- PCP- YUMIKO DOUGHERTY ? SCP- Procedure Note Carla Chin MD - 12/22/2007 CT abdomen and pelvis with contrast HISTORY- Left lower quadrant pain CT abdomen- TECHNIQUE- Helically acquired images were obtained from the hemidiaphragms to the iliac crest following the administration of IV and oral contrast. FINDINGS- The lung bases are essentially clear. The liver, spleen, adrenal glands, gallbladder, pancreas and kidneys appear normal. The abdominal aorta is normal in caliber. There is no retroperitoneal lymphadenopathy. IMPRESSION- No intra-abdominal abnormality. CT pelvis- TECHNIQUE- Helically acquired images were obtained from the iliac crest to the pelvic floor following the administration of IV and oral contrast. FINDINGS- There are a few sigmoid diverticula. No acute inflammatory changes are noted to suggest active diverticulitis. There is no free fluid in the pelvis. The patient is status post hysterectomy. IMPRESSION- Few diverticula. No evidence for active diverticulitis. Reading Radiologist- CARLA CHIN MD Releasing Radiologist- CARLA CHIN MD Released Date Time- 12/22/07928 Spring Coiler- KGM ADM- YUMIKO DOUGHERTY ATT- MAO,YUMIKO Munroe REF- MAO,YUMIKO Munroe CON- PCP- MAO,YUMIKO Munroe SCP- Yumiko Dougherty MD CT ORDERABLES * LIPASE BLOOD (12/15/2007 12:42 PM CDT) Lipase 26 0 - 59 U/L [facility] A CCOUNT BILL 12/15/2007 12:4 2 PM CDT 12/15/2007 6:30 PM CDT Narrative Resulting Agency Comment [facility] [address] ??[facility] [phone] Yumiko Dougherty MD LAB - CHEMISTRY MIMI LOTT [facility] ACCOUNT BILL * XR HAND 3+ VW LEFT (10/10/2007 1:00 PM CDT) Anatomical Region Laterality Modality Wrist / Hand Other 10/10/2007 1:00 PM CDT Narrative 10/10/2007 2:25 PM CDT Left hand HISTORY- Wrist pain Three views of the left hand were obtained which demonstrate a mild ulnar negative variant. No additional osseous abnormalities are noted. IMPRESSION- Mild ulnar negative variance. No acute osseous abnormalities or degenerative changes. ? Reading RadiologistSulma CHIN MD ? Releasing Ricardo CHIN MD ? Released Date Time- 10/10/071424 ? [place] Coiler- KGBaron ? ADM- YUMIKO DOUGHERTY ? ATT- YUMIKO DOUGHERTY REF- YUMIKO DOUGHERTY ? CON- PCP- YUMIKO DOUGHERTY ? SCP- Procedure Note Carla Chin MD - 10/10/2007 Left hand HISTORY- Wrist pain Three views of the left hand were obtained which demonstrate a mild ulnar negative variant. No additional osseous abnormalities are noted. IMPRESSION- Mild ulnar negative variance. No acute osseous abnormalities or degenerative changes. Reading Ricardo CHIN MD Releasing Ricardo CHIN MD Released Date Time- 10/10/071424 Spring Coiler- KGBaron ADM- YUMIKO DOUGHERTY ATT- YUMIKO DOUGHERTY REF- MAO,YUMIKO Munroe CON- PCP- YUMIKO DOUGHERTY SCP- Yumiko Dougherty MD DIAGNOSTIC IMAGING O RDERABLES * (ABNORMAL) LIPID PROFILE (10/10/2007 12:19 PM CDT) Cholesterol 165 100 - 199 mg/dL [facility] INSURANCE BILL Triglycerides 243(H) 0 - 149 mg/dL [facility] INSURANCE BILL HDL Cholesterol 29(L) 40 - 59 mg/dL [facility] INSURANCE BILL VLDL Calculated 49(H) 5 - 40 mg/dL [facility] INSURANCE BILL LDL Calculated 87 0 - 99 mg/dL [facility] INSURANCE BILL 10/10/2007 12:1 9 PM CDT 10/10/2007 8:08 PM CDT Narrative Resulting Agency Comment [facility] [address] ??[facility] [phone] Yumiko Dougherty MD LAB - CHEMISTRY MIMI LOTT [facility] INSURANCE BILL * GROSS + MICRO EXAM (05/14/2006 12:[address] LIGHT MECHANIC) Only the most recent of5 resultswithin the time period is included. Result CASE NUMBER [id number] Comment: ORDERING PHYSICIAN ??SCARLETT RAUSCH SPECIMEN TYPE ?Tissue-left foot fascia Surgeon ?DR. SCARLETT RAUSCH Gross Exam ? TUCKER CHESTER Gross Report ? COPY TO INDICATION FOR PROCEDURE ?? CHRONIC WOUND DEHISCENCE LEFT FOOT OPERATION ?? INCISION AND DRAINAGE LEFT FOOT WOUND GROSS THE SPECIMEN IS RECEIVED IN TWO CONTAINERS LABELED WITH THE PATIENT'S NAME. 1. ??THE FIRST IS LABELED TISSUE LEFT FOOT FASCIA . THE SPECIMEN IS RECEIVED IN FORMALIN AND CONSISTS OF A 1 X 1 X 0.5 CM. AGGREGATE OF GLISTENING FRAGMENTS OF YELLOW PETIT AND WHITE PETIT TISSUE. ??ALL SUBMITTED IN A . 2. ??THE SECOND CONTAINER IS LABELED HEMANGIOMA LEFT FOOT . THE SPECIMEN IS RECEIVED IN FORMALIN AND CONSISTS OF A 4 X 4 X 2 MM. RAISED PETIT SKIN NODULE. ??IT IS INKED AND THEN BISECTED REVEALING HEMORRHAGIC CUT SURFACE. ??ALL SUBMITTED IN B . LW/CS MICROSCOPIC EXAM ? MICROSCOPIC 1. ??SECTIONS OF THE LEFT FOOT FASCIA SHOW DENSE FIBROUS TISSUE WITH ADIPOSE TISSUE AND FOCAL COLLECTION OF CHRONIC INFLAMMATORY CELLS. ??THERE IS NO MALIGNANCY IDENTIFIED. ??FAT NECROSIS IS ALSO SEEN. 2. ??SECTIONS LABELED B FROM THE HEMANGIOMA OF THE LEFT FOOT SHOW FIBROFATTY TISSUE WITH THICK WALL BLOOD VESSELS. NO INFLAMMATION OR MALIGNANCY IS SEEN. JW/CS DIAGNOSIS ? DIAGNOSIS [1] LEFT FOOT FASCIA -- ?? MILD FOCAL CHRONIC INFLAMMATION [2] HEMANGIOMA LEFT FOOT -- ?? FIBROFATTY TISSUE WITH THICK WALL BLOOD VESSELS JW/CS Released By ?QUIQUE LANGE CPT Code ? 31062 X 2 MISCELLANEOUS SAMPLE S / Unknown 05/14/2006 05/15/2006 7:[address] LIGHT MECHANIC Historical Provider LAB - PATHOLOGY/C YTOLOGY ORDERABLES Care Teams Printing Machine Operator Relationship Specialty Start Date End Date Jacki Cabrera MD PCP - General Internal Medicine 11/04/14 Summer Green, RN Paint Brush Maker 11/03/14
--- OUTSIDE RECORDS SUMMARY | 2024-05-11 12:07 | XMS_ITS | Encounter Summary ---
Author Organization [facility] Address [address] [place] [address] Care Team Providers Care [employer] Consultant Name Role Phone NormaFlynnSummer K RN Unavailable Jacki Cabrera MD Primary Care Provider Reason for Visit * Auth/Cert Specialty Diagnoses / Procedures Referred By Calvin bentley Referred To Contact Diagnoses Diagnosis unknown Diagnosis unknown [R69] Procedures LAMINECTOMY THORACIC Referral ID Status Reason Start Date Expiration Date Visits Re quested Visits Authorized [id number] 1 1 Encounter Details Date Type Department Care Team (Latest Contact Info) Description 03/16/2021 7:47 AM BUG TRIMMER - 03/16/2021 4:45 PM [facility] Hospital Encounter [facility] [address] [place] [address] William Hammonds MD [address] [place] [id number] Surgery General Discharge Disposition: Home or Self Care Social History Tobacco Use Types Packs/Day Years Used Date Smoking Tobacco: Every Day Cigarettes 1 19 Started: 02/17/1994; Last attempted to quit: 02/17/2013 Smokeless Tobacco: Never Comments: a couple cigarette s a day Alcohol Use Standard Drinks/Week Comments No 0 (1 standard drink = 0.6 oz pur e alcohol) occasional Sex and Gender Information Value Date Recorded Sex Assigned at Not on file Gender Identity Not on file Sexual Orientation Not on file documented as of this encounter Last Filed Vital Signs Vital Sign Reading Time Taken Comments Blood Pressure 135/71 03/16/2021 3:55 PM BUG TRIMMER Pulse 89 03/16/2021 3:55 PM BUG TRIMMER Temperature 36.7 ??C (98 ??F) 03/16/2021 3:16 PM BUG TRIMMER Respiratory Rate 18 03/16/2021 3:55 PM BUG TRIMMER Oxygen Saturation 94% 03/16/2021 3:55 PM BUG TRIMMER Inhaled Oxygen Concentration - - Weight 118.8 kg (262 lb) 03/16/2021 8:36 AM BUG TRIMMER Height 172.7 cm (5' 8 ) 03/16/2021 8:36 AM BUG TRIMMER Body Mass Index 39.84 03/16/2021 8:36 AM BUG TRIMMER documented in this encounter Functional Status Functional Status Response Date of Assess ment Is person deaf or have serious hearing difficult y? No 11/07/2014 Is person blind or have serious difficulty seein g? No 11/07/2014 Does person have serious dif ficulty walking/climbing stairs? Yes 11/07/2014 Does person have difficulty dressing/bathing? No 11/07/2014 Does person have difficulty doing errands alone? Yes 11/07/2014 Cognitive Status Response Date of Assessm ent Does person have difficulty concentrating/remembering/making decisions? No 11/07/2014 documented as of this encounter Medications at Time of Discharge Medication Sig Dispensed Refills Start Date End Date clobetasol (TEMOVATE) 0.05 % gel Apply to affected area as needed folic acid (FOLVITE) 1 MG tablet Take 1 mg by mouth once daily multivitamin with iron (ONE A DAY WITH IRON) tablet Take 1 Tab by mouth once daily NARCAN 4 MG/0.1ML nasal spray SYBIL REP ALN 09/10/2019 TALTZ 80 MG/ML auto-injector pen 1 Dose 12/09/2018 albuterol HFA (PROVENTIL;VENTOLIN;DC OAIR) 108 (90 Base) MCG/ACT inhaler 07/23/2019 03/22/2021 baclofen (LIORESAL) 10 MG tablet 10 mg at bedtime 11/13/2017 03/22/2021 busPIRone (BUSPAR) 5 MG tablet 01/04/2021 03/22/2021 calcitriol (ROCALTROL) 0.25 MCG capsule Take 0.25 mcg by mouth once daily 02/24/2021 03/22/2021 COLACE 100 MG CAPS Take 100 mg by mouth once daily as needed 03/22/2021 cyclobenzaprine (FLEXERIL) 10 MG tablet Take 1 (one) tablet by mouth 3 times daily as needed for Muscle Spasms 21 tablet 03/16/2021 03/22/2021 DULoxetine (CYMBALTA) 60 MG capsule Take 60 mg by mouth 2 times daily 2 12/16/2018 03/22/2021 Ergocalciferol (VITAMIN D2) 2000 UNITS TABS Take 50,000 Units by mouth every 7 days 03/22/2021 escitalopram (LEXAPRO) 10 MG tablet 10 mg once daily 02/24/2021 03/22/2021 fluticasone propionate (FLONASE) 50 MCG/ACT nasal spray as needed 07/22/2019 03/22/2021 gabapentin (NEURONTIN) 600 MG tablet 600 mg 3 times daily 12/10/20162020 hydrocodone-acetaminop hen 7.5-325 MG/15ML solution Take 15 mL by mouth every 4 hours as needed 473 mL 5 11/07/2014 03/22/2021 lisinopril-hydroCHLORO thiazide (PRINZIDE; ZESTORETIC) 20-25 MG tablet 1 tablet 11/04/2017 03/22/2021 lovastatin (MEVACOR) 20 MG tablet Take 20 mg by mouth at bedtime 3 10/10/2018 03/22/2021 methotrexate 2.5 MG tabletIndications:Psor iatic Arthritis Take 20 mg by mouth every 7 days Take 8 tablets Reasons: Psoriasis associated with Arthritis 03/22/2021 omeprazole (PRILOSEC) 20 MG capsule 20 mg at bedtime 10/21/2016 03/22/2021 predniSONE (DELTASONE) 5 MG tablet 5 mg once daily 01/18/2018 03/22/2021 sulfaSALAzine (AZULFIDINE) 500 MG tablet 500 mg 2 times daily 01/31/2021 021 traZODone (DESYREL) 100 MG tablet 200 mg at bedtime 11/26/2016 XTAMPZA ER 13.5 MG capsule 18 mg 09/14/2018 03/22/2021 documented as of this encounter H&P Notes * William Hammonds MD - 03/16/2021 9:42 AM CST NAME: KAROLINA RAMOS : 1955 AGE: 65 PROVIDER: William Hammonds MD SEX: F HISTORY OF PRESENT ILLNESS: Ms. Ramos is a very pleasant 65-year-old lady with a very complex history from the spinal standpoint. The patient had a previous laminectomy in the lower lumbar spine, remaining with chronic axial low back pain as well as right leg pain. She also has a history of fusion of her right ankle. The patient has already tried an extensive conservative treatment with physical therapy and injection without significant improvement of her pain. Fortunately, the patient had a recent trial with a dorsal column stimulation system with an X[employer]reme [employer] device and presented with significant improvement of her pain. Therefore, she comes today for discussion of the surgery for placement of the final implant. ?? Social History ?? Socioeconomic History ??? Marital status: ? Spouse name: Not on file ??? Number of children: Not on file ??? Years of education: Not on file ??? Highest education level: Not on file Occupational History ??? 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 Smoking status: Current Every Day Smoker ? Packs/day: 1.00 ? Years: 19.00 ? Pack years: 19.00 ? Types: Cigarettes ? Last attempt to quit: 02/17/2013 ? Years since quittin.0 ??? Smokeless tobacco: Never Used ??? Tobacco comment: 5 cigarettes per day Vaping Use ??? Vaping Use: Never used Substance and Sexual Activity ??? Alcohol use: No ? Comment: occasional ??? Drug use: No ??? Sexual activity: Not on file Other Topics Concern ??? Not on file Social History Narrative ??? Not on file ?? Social Determinants of Health ?? Financial Resource Strain: Not on file Food Insecurity: Not on file Transportation Needs: Not on file Physical Activity: Not on file Stress: Not on file Social Connections: Not on file Intimate Partner Violence: Not on file Housing Stability: Not on file ?? Past Medical History Past Medical History: Diagnosis Date ??? Arthritis ? rheumatoid ??? Constipation ? Depression ? Edema ? bilateral ankles ??? GERD (gastroesophageal reflux disease) ? History of diabetes mellitus ? Hypertension ? MRSA (methicillin resistant Staphylococcus aureus) ? post right foot surgery ??? Overweight, obesity and other hyperalimentation ? Psoriasis ? right leg, both elbows, scalp ??? Sleep apnea ? uses cpap machine ?? Past Surgical History Past Surgical History: Procedure Laterality Date ??? ANKLE FRACTURE TX ?? 1999 ?? right ??? ANKLE FRACTURE TX ?? 2000 ?? hardware removed ??? Arthroplasty ?? 2006 ?? left ??? Arthroplasty ?? 2008 ?? right knee,2008 ??? Back Surgery ?? 1996 ?? L4L5 ??? Breast Reduction ?? 1994 ?? bilat ??? Bunionectomy ?? 2007 ?? right ??? Bunionectomy ?? 1994 ?? left ??? Hysterectomy ?? 1989 ?? vaginal ??? KNEE ARTHROPLASTY, REVISION Right 11/03/2014 ?? Right; ARTHROPLASTY TOTAL KNEE REVISION HINGED KNEE ??? Knee Arthroscopy ?? 1996 ?? left ??? Knee Arthroscopy ?? 1996 ?? right ??? Salpingo-oophorectomy ?? 2003 ?? bilat ??? TUBAL LIGATION, LAPAROSCOPIC ?? 1976 ?? Family History Problem Relation Name Age of Onset ??? Heart Failure Mother ? Diabetes Mother ? Heart Failure Father ? Arthritis - Rheumatoid Sister Inna ? Other Sister Inna ? COPD, SLE ?? Current Medications ? Adalimumab (HUMIRA PEN SC) Inject 40 Units subcutaneously every 14 days ?? albuterol HFA (PROVENTIL;VENTOLIN;PROAIR) 108 (90 Base) MCG/ACT inhaler ? B Complex Vitamins (VITAMIN B COMPLEX PO) Take 1 Tab by mouth once daily ?? baclofen (LIORESAL) 10 MG tablet 10 mg ?? busPIRone (BUSPAR) 5 MG tablet ? calcitriol (ROCALTROL) 0.25 MCG capsule ? calcium 500 MG TABS tablet Take 500 mg by mouth 3 times daily ?? calcium-vitamin D (OS-LINDSAY 500 + D) 500-200 mg-unit tablet Take 500 mg by mouth ?? clobetasol (TEMOVATE) 0.05 % gel Apply to affected area as needed ?? COLACE 100 MG CAPS Take 100 mg by mouth once daily as needed ?? cyanocobalamin (VITAMIN B-12) injection Inject 1,000 mcg into muscle every 30 days ?? DULoxetine (CYMBALTA) 60 MG capsule Take 60 mg by mouth 2 times daily ?? Ergocalciferol (VITAMIN D2) 2000 UNITS TABS Take 50,000 Units by mouth every 7 days ?? escitalopram (LEXAPRO) 10 MG tablet ? fluticasone propionate (FLONASE) 50 MCG/ACT nasal spray USE 1 SPRAY(S) IN EACH NOSTRIL ONCE DAILY ?? folic acid (FOLVITE) 1 MG tablet Take 1 mg by mouth once daily ?? gabapentin (NEURONTIN) 600 MG tablet 600 mg ?? GLIPIZIDE XL 2.5 MG tablet 2.5 mg ?? HYDROcodone-acetaminophen 7.5-325 MG/15ML solution 15 mL ?? hydrocodone-acetaminophen 7.5-325 MG/15ML solution Take 15 mL by mouth every 4 hours as needed ?? insulin aspart (NOVOLOG) for insulin pump Inject subcutaneously as directed Basal rate 2.5 units ?? LISINOPRIL PO Take 5 mg by mouth once daily ?? lisinopril-hydroCHLOROthiazide (PRINZIDE; ZESTORETIC) 20-25 MG tablet 1 tablet ?? lovastatin (MEVACOR) 20 MG tablet Take 20 mg by mouth at bedtime ?? methotrexate (RHEUMATREX) 2.5 MG tablet ? methotrexate 2.5 MG tablet Take 2.5 mg by mouth every 7 days Takes 5 tablets ReasonsPsoriasis associated with Arthritis ?? multivitamin with iron (ONE A DAY WITH IRON) tablet Take 1 Tab by mouth once daily ?? NARCAN 4 MG/0.1ML nasal spray SYBIL REP ALN ?? omeprazole (PRILOSEC) 20 MG capsule 20 mg ?? oxyCODONE, immediate release, (ROXICODONE) 5 MG tablet ? predniSONE (DELTASONE) 5 MG tablet 5 mg ?? REXULTI 0.5 MG tablet Take 0.5 mg by mouth once daily for 30 days ?? sulfaSALAzine (AZULFIDINE) 500 MG tablet ? TALTZ 80 MG/ML auto-injector pen 1 Dose ?? traZODone (DESYREL) 100 MG tablet 200 mg ?? warfarin (COUMADIN) 4 MG tablet Take 1 Tab by mouth every evening ?? XTAMPZA ER 13.5 MG capsule 18 mg ?? PHYSICAL EXAMINATION: The patient is in mild discomfort, but in no acute distress. She has several myofascial tender points on palpation of the paraspinal muscles in the posterior lumbar region. She has full strength in the lower limbs for all tested muscles except for dorsiflexion of the right foot which was somewhat challenging to evaluate due to her ankle fusion. She has some hypoesthesia in the right leg distribution of the L5 and S1 dermatomes. ?? REVIEW OF DIAGNOSTIC STUDIES: The patient had an MRI of the lumbar spine performed in 2020 that revealed advanced degenerative disk disease in her lower lumbar spine, especially at the level of L3-L4and L4-L5. There is a moderate degree of bilateral lateral recess stenosis as well as some scar tissue. MRI of the thoracic spine performed on the same date revealed some degenerative changes withoutsignificant central canal or foraminal stenosis. Intraoperative x-rays during the trial revealed ideal stimulation with electrodes covering the T10 and the T10-T11 disk space. ?? MEDICAL DECISION MAKING: I told the patient that as she presents with good evolution with a trial with a dorsal column stimulation system she could proceed with a T11-T12 laminectomy for placement ofdorsal column stimulation system and placement of the battery in the right lower lumbar region. I explained to her the risks and the benefits of the surgical procedure as well as possible associated complications such as weakness, paralysis, persistence of the pain, CSF leakage, and infection with the need for removal of the whole system. PLAN: Ok to proceed to OR for thoracic eleven to thoracic twelve laminectomy for placement of dorsal column stimulation system and placement of the battery in the right lower lumbar region TRIMMER documented in this encounter OR Notes * Brief Op Note - Michelle Ugarte MD - 03/16/2021 11:20 AM CST Brief Op Note Procedure: THORACIC ELEVEN - THORACIC TWELVE LAMINECTOMY FOR PLACEMENT OF DORSAL COLUMN STIMULATIONSYSTEM AND PLACEMENT OF THE BATTERY IN THE RIGHT LOWER LUMBER REGION Patient Name: Karolina Ramos Date of Service: 03/16/2021 Pre-Op Diagnosis: Back pain Post-Op Diagnosis: same Surgeon(s) and Role: * William Hammonds MD - Primary Pmo Business Analyst(s): Michelle Ugarte MD Anesthesia Type: general ETT Complications: none Findings: East spinal cord stimulator placed and connected to right lower lumbar region battery with good impedances EBL: 20 mL Urine Output : n/a IV Fluid Intake: per anesthesia Drains: * No LDAs found * Specimen(s): * No specimens in log * Implant(s): Implant Name Type Inv. Item Serial No. Inspector Soldering Lot No. LRB No. Used Action LEAD NRSTM 60CM PENTA 3MM PDL 16 CHNL - [id number] Lead Nrstm 60Cm Penta 3Mm Pdl 16 Chnl [id number] Advanced Neuromodulation Systems 1 Implanted Slnt Dura Duraseal Pg Trilysine Amine 5 Slnt Dura Duraseal Pg Trilysine Amine 5 ZAPITANO [id number] 1 Implanted CABLE NRSTM MULTILEAD TRL - [id number] Cable Nrstm Multilead Trl [id number] East Spine 1 Implanted GNTR NRSTM 1.95INX2.19IN PROCLAIM ELT - [id number] Gntr Nrstm 1.95Inx2.19In Proclaim Elt [id number] [employer] 1 Implanted Michelle Ugarte MD TRIMMER * Operative - William Hammonds MD - 03/16/2021 11:20 AM CST [facility] ?Operative Report ?? PATIENT NAME:??KAROLINA RAMOS ?MR#:?[id number] DATE OF :?1955?CSN:?[id number] ?? DATE OF ADMISSION: ??03/16/2021?ROOM#: ??[facility] ?INTRAOP DATE OF OPERATION: ??03/16/2021? PREOPERATIVE DIAGNOSIS: Refractory chronic axial low back pain??and right??leg pain ?? POSTOPERATIVE DIAGNOSIS: Refractory chronic axial low back pain??and right??leg pain ?? PROCEDURE PERFORMED: T10-T11 and T11-T12??laminectomy for placement of dorsal column stimulation system and placement ofthe battery in the??right lower lumbar region. ?? SURGEON: William Hammonds M.D. ?? DRAWER MAKER: Michelle Ugarte MD ?? ANESTHESIA: General anesthesia. ?? INTRAOPERATIVE BLOOD LOSS: 100??mL. ?? COMPLICATIONS: No intraoperative complications. ?? HARDWARE: East - Burst DR - non-rechargeable battery ?? PROCEDURE: The patient under anesthesia was placed in prone position on??a??Kp table with chest and hip pads. ??Baseline neuromonitoring with SSEPs, MEPs, and spontaneous EMGs was obtained. ??Then, x-ray was brought in place in order to localize the level of??T11-T12. The wound in the posterior thoracic r egion??and??right??lower lumbar region??were??prepped and draped. ??A midline incision of approximately??5??cm was performed??at the level of??T11- T12.??Monopolar was used for dissection of subcutaneous tissues??as well as paraspinal muscles bilaterally exposing the bilateral laminae??of?? T11??and T12.?Then, x-ray was brought in place confirming??that to be the correct level. ??Then, the??spinous processes of T11 was??removed with??a??Sukh rouchristianoer.?Then, the bilateral laminae??were drilled. ??Ligamentum flavum was dissected from the dura and resected. I attempted to slid the stimulation paddle under the lamina. Due to fibrosis it was not possible. Therefore the incision was extended cranially 4cm. Paraspinal muscles were dissected and the spinous process of T10 were removed witha Sukh dudley. Bilateral laminae were drilled. Then the paddle lead was slid under the lamina??until it stop was at the level of the pedicle of T10.?Floseal was used for epidural hemostasis.?AP and lateral fluoroscopy demonstrated adequate position of the paddle??at??the midline. Then, the wires were connected to??an??external battery. ??Right-sided stimulation revealed??predominantly??right side??responses and??left-sided stimulation predominantly left side responses. ??Then 2 pieces??of plastic were??used in order to attach the wires to the interspinous ligament at the level of??T12. ??The??pieces of plastic??were sutured with a Prolene 3-0. ??Then, a transverse incision of approximately 4 cm was performed in the??right??lower lumbar region. Monopolar was used for dissectionof the subcutaneous tissue?until creation of a pocket for??allocation of the battery. ??Then thewires were tunneled from the posterior thoracic region to the??right??lower lumbar region. The wires connected to the battery. ??The whole system was tested??and verified to be working. Then??the midline wound was??copiously irrigated??with??saline.?500 mg of vancomycin powder was spread superficially over??both??wounds. ??DuraSeal was placed over the laminectomy gap in order to prevent further migration of the paddle. ??Exparel was injected in the paraspinal muscles??in order to??reduce post operative pain. The battery was??finally tightened and??inserted??in the??right??lower lumbar region??and sutured to it??with a Prolene 2.0. ??Then, the??right lower lumbar region wound was closed bylayers of Vicryl #1 for the deep subcutaneous tissue, Vicryl 2-0 for the proximal subcutaneous tissu e??and??Monocryl 3-0 for the skin. ??The midline incision was closed with Vicryl #1 for the thoracic fascia, Vicryl 2-0 for subcutaneous tissue??and??Monocryl 3-0 for the skin. ??The skin was dressedwith an Exophyn??dressing. TRIMMER documented in this encounter Plan of Treatment Not on file documented as of this encounter Procedures Procedure Name Priority Date/Time Associated Diagnosis Comments CARDIAC RHYTHM STRIP ORDER 03/20/2021 5:52 PM BUG TRIMMER GLUCOSE - POINT OF CARE Routine 03/16/2021 1:59 PM BUG TRIMMER FL LUPILLO SURGERY Routine 03/16/2021 1:00 PM BUG TRIMMER Pain XR CHEST 1VW PORTABLE STAT 03/16/2021 10:15 AM BUG TRIMMER Preop examination INSERTION/REPLACEM ENT SPINAL CORD STIMULATOR 03/16/2021 10:11 AM BUG TRIMMER Diagnosis unknown Special Needs #### 004 #### NEEDS C-ARM, [employer] NOTIFIED PER OFFICE(MATTIE) WITH CONFIRMATION # [id number] / [employer] REP (DRE [phone]) NOTIFIED PER OFFICE(MATTIE) 03/06 TM / SURGEON WANTS PATIENT IN PRONE POSITION FOR PROCEDURE Case confirm ed with Krisit 03-14-2021-MAB LAMINECTOMY THORACIC 03/16/2021 10:11 AM BUG TRIMMER Diagnosis unknown Special Needs #### 004 #### NEEDS C-ARM, [employer] NOTIFIED PER OFFICE(MATTIE) WITH CONFIRMATION # [id number] / [facility] REP (DRE [phone]) NOTIFIED PER OFFICE(MATTIE) 03/06 TM / SURGEON WANTS PATIENT IN PRONE POSITION FOR PROCEDURE Case confirm ed with Krisit 03-14-2021-MAB GLUCOSE - POINT OF CARE Routine 03/16/2021 8:47 AM BUG TRIMMER documented in this encounter Results * CARDIAC RHYTHM STRIP ORDER (03/20/2021 5:52 PM BUG TRIMMER) Narrative 03/20/2021 5:52 PM BUG TRIMMER Ordered by an unspecified provider. Scanned Document CARDIAC SERVICES ORD ERABLES * (ABNORMAL) GLUCOSE - POINT OF CARE (03/16/2021 1:59 PM BUG TRIMMER) Glucose WB/POC 179(H) 70 - 106 mg/dL 03/16/2021 2:05 PM BUG TRIMMER [facility] Specimen Type Cap Fingerstick 2020 2:05 PM BUG TRIMMER [facility] Blood BLOOD SPECIMEN / Unknown 03/16/2021 1:59 PM BUG TRIMMER 03/16/2021 2:05 PM BUG TRIMMER William Hammonds MD LAB - POINT OF C ARE ORDERABLES [facility] [address] [place] [address] * FL LUPILLO SURGERY (03/16/2021 1:00 PM BUG TRIMMER) Narrative [facility] - 03/16/2021 2:00 PM BUG TRIMMER For details of this study, please see the providers note. William Hammonds MD FLUOROSCOPY ORDE RABLES Performing Organization Address City/[facility]/ZIP Co de Phone Number [facility] [address] [place] [address] * XR CHEST 1VW PORTABLE (03/16/2021 10:15 AM BUG TRIMMER) Anatomical Region Laterality Modality Chest Radiographic Rivka ging 03/16/2021 10:0 3 AM BUG TRIMMER Narrative 03/16/2021 10:03 AM BUG TRIMMER Exam: AP radiograph of the chest. History: Chest pain. Findings/Impression: No focal consolidation or pleural effusion is identified. The cardiac silhouette and mediastinal contours appear normal. *Reading Radiologist: Stu Drake on 03/16/2021 at 10:03 AM Procedure Note Stu Drake MD - 03/16/2021 Exam: AP radiograph of the chest. History: Chest pain. Findings/Impression: No focal consolidation or pleural effusion is identified. The cardiac silhouette and mediastinal contours appear normal. *Reading Radiologist: Stu Drake on 03/16/2021 at 10:03 AM William Hammonds MD DIAGNOSTIC IMAGI NG ORDERABLES * (ABNORMAL) GLUCOSE - POINT OF CARE (03/16/2021 8:47 AM BUG TRIMMER) Glucose WB/POC 155(H) 70 - 106 mg/dL 03/16/2021 8:56 AM BUG TRIMMER [facility] Specimen Type Venous 03/16/2021 8:56 AM BUG TRIMMER [facility] Blood BLOOD SPECIMEN / Unknown 03/16/2021 8:47 AM BUG TRIMMER 03/16/2021 8:56 AM BUG TRIMMER William Hammonds MD LAB - POINT OF C ARE ORDERABLES [facility] [address] [place], [place] [id number] documented in this encounter Visit Diagnoses Diagnosis Preop examination- Primary Preoperative examination, unspecified Pain Generalized pain Chronic bilateral low back pain documented in this encounter Administered Medications Inactive Administered Medications - up to 3 most recent administrations Medication Order MAR Action Action Date Dose Rate Site acetaminophen (Tylenol) tablet 1,000 mg 1,000 mg, Oral, ONCE, 1 dose, On Rhoda 03/16/21 at 0900, Pre-op $ Given 03/16/2021 8:57 AM BUG TRIMMER 1,000 mg fentaNYL (PF) (Sublimaze) injection 50 mcg 50 mcg, Intravenous, EVERY 3 MIN PRN, Mild Pain, 4 doses, Starting on Rhoda 03/16/21 at 1404, Until Rhoda 03/16/21 at 1802, Maximum total of 4 doses. If patient reaches max total dose, please consult anesthesiologist prior to further administration of pain meds. Hold pain meds if there are signs of hypoventilation., PACU $ Given 03/16/2021 2:16 PM BUG TRIMMER 50 mcg $ Given 03/16/2021 2:09 PM BUG TRIMMER 50 mcg HYDROcodone-acetaminophen 7.5-325 MG/15ML solution 15 mL 15 mL, Oral, POST-OP ONCE, 1 dose, On Rhoda 03/16/21 at 1530 $ Given 03/16/2021 3:53 PM BUG TRIMMER 15 mL lactated ringers infusion at 20 mL/hr, Intravenous, PRE-OP CONTINUOUS, Starting on Rhoda 03/16/21 at 0900, Until Rhoda 03/16/21 at 1802, Pre-op $ New Bag/Syringe 03/16/2021 8:57 AM BUG TRIMMER 20 mL/hr lidocaine PF (Xylocaine MPF) 1 % injection 0.2 mL 0.2 mL, Infiltration, PRE-OP MULTIPLE, 3 doses, Starting on Rhoda 03/16/21 at 0829, Until Rhoda 03/16/21 at 1802, May be used (0.2 ml locally to anesthetize prior to insertion)., Pre-op $ Given 03/16/2021 8:57 AM BUG TRIMMER 0.2 mL documented in this encounter Active and Recently Administered Medications Times are shown in BUG TRIMMER. Scheduled Medication Order 03/14/2021 03/15/2021 03/16/2021 acetaminophen (Tylenol) tablet 1,000 mg (COMPLETED) 1,000 mg, Oral, ONCE, 1 dose, On Rhoda 03/16/21 at 0900, Pre-op 0857 ($ Given - Prov ider: Sherri Verdin RN) ceFAZolin (Ancef) 2,000 mg in 50 ml IVPB (COMPLETED) 2,000 mg (2 g), at 100 mL/hr, Intravenous, ONCE, 1 dose, On Rhoda 03/16/21 at 1045, Indication for anti-infective therapy: Surgical prophylaxis 1104 ($ Given - Prov ider: Ian Vásquez, CIGAR SORTER-TOPOGRAPHICAL DRAFTER - Comment: neg test dose) HYDROcodone-acetaminophen 7.5-325 MG/15ML solution 15 mL (COMPLETED) 15 mL, Oral, POST-OP ONCE, 1 dose, On Rhoda 03/16/21 at 1530 1553 ($ Given - Prov ider: Nicolasa Robb RN) lidocaine PF (Xylocaine MPF) 1 % injection 0.2 mL 0.2 mL, Infiltration, PRE-OP MULTIPLE, 3 doses, Starting on Rhoda 03/16/21 at 0829, Until Rhoda 03/16/21 at 1802, May be used (0.2 ml locally to anesthetize prior to insertion)., Pre-op 0857 ($ Given - Prov ider: Sherri Verdin RN) naloxone (Narcan) injection 0.04 mg 0.04 mg, Intravenous, POST-OP MULTIPLE, Starting on Rhoda 03/16/21 at 1404, Until Rhoda 03/16/21 at 1802, If respiration rate is less than 7 per minute administer IV every 1 minute until respirations are greater than 12 per minute. Notify anesthesia immediately., PACU Continuous Medication Order 03/14/2021 03/15/2021 03/16/2021 lactated ringers infusion at 20 mL/hr, Intravenous, PRE-OP CONTINUOUS, Starting on Rhoda 03/16/21 at 0900, Until Rhoda 03/16/21 at 1802, Pre-op 0857 ($ New Bag/Syri nge - Provider: Sherri Verdin RN) lactated ringers infusion at 125 mL/hr, Intravenous, CONTINUOUS, Starting on Rhoda 03/16/21 at 1415, Until Rhoda 03/16/21 at 1802, PACU 1415 (Due) PRN Medication Order 03/14/2021 03/15/2021 03/16/2021 0.9% NaCl irrigation (SO) solution (CANCELED) PRN, Starting on Rhoda 03/16/21 at 1321, Until Rhoda 03/16/21 at 1351, Intra-op 1321 ($ Given - Prov ider: William Hammonds MD) bupivacaine liposome (Exparel) 1.3 % injection (CANCELED) PRN, Starting on Rhoda 03/16/21 at 1207, Until Rhoda 03/16/21 at 1351, Intra-op 1207 ($ Given - Prov ider: William Hammonds MD) fentaNYL (PF) (Sublimaze) injection 50 mcg 50 mcg, Intravenous, EVERY 3 MIN PRN, Mild Pain, 4 doses, Starting on Rhoda 03/16/21 at 1404, Until Rhoda 03/16/21 at 1802, Maximum total of 4 doses. If patient reaches max total dose, please consult anesthesiologist prior to further administration of pain meds. Hold pain meds if there are signs of hypoventilation., PACU 1409 ($ Given - Prov ider: Kate Roman RN)1416 ($ Given - Provider: Kate Roman RN) HYDROmorphone (Dilaudid) injection 0.5 mg 0.5 mg, Intravenous, EVERY 5 MIN PRN, Severe Pain, Starting on Rhoda 03/16/21 at 1404, Until Rhoda 03/16/21 at 1802, Maximum total of 4 doses If patient reaches max total dose, please consult anesthesiologist prior to further administration of pain meds. Hold pain meds if there are signs of hypoventilation., PACU lidocaine 1% (Xylocaine-MPF) - EPINEPHrine 1:100,000 injection (CANCELED) PRN, Starting on Rhoda 03/16/21 at 1321, Until Rhoda 03/16/21 at 1351, Intra-op 1321 ($ Given - Prov ider: William Hammonds MD) morphine injection 4 mg 4 mg, Intravenous, EVERY 5 MIN PRN, Moderate Pain, 3 doses, Starting on Rhoda 03/16/21 at 1404, Until Rhoda 03/16/21 at 1802, Maximum total of 3 doses. If patient reaches max total dose, please consult anesthesiologist prior to further administration of pain meds. Hold pain meds if there are signs of hypoventilation., PACU ondansetron (Zofran) injection 4 mg 4 mg, Intravenous, ONCE PRN, Nausea/Vomiting, 1 dose, Starting on Rhoda 03/16/21 at 1404, Until Rhoda 03/16/21 at 1802, First choice, PACU ondansetron (Zofran) injection 4 mg 4 mg, Intravenous, ONCE PRN, Nausea/Vomiting, 1 dose, Starting on Rhoda 03/16/21 at 1404, Until Rhoda 03/16/21 at 1802, Second choice, use if first choice was ineffective., PACU vancomycin (Vancocin) injection (CANCELED) PRN, Starting on Rhoda 03/16/21 at 1207, Until Rhoda 03/16/21 at 1351, Intra-op 1207 ($ Given - Prov ider: William Hammonds MD - Comment: sprinkled in op site) documented in this encounter Additional Health Concerns Infection Onset Date Last Indicated Resolved Time MRSA 01/23/2008 01/23/2008 03/16/2021 8:30 AM BUG TRIMMER MRSA Hx 03/16/2021 03/16/2021 documented as of this encounter Care Teams [employer] Consultant Relationship Specialty Start Date End Date Jacki Cabrera MD PCP - General Internal Medicine 11/04/14 Summer Green, RN Laborer [place] 11/03/14 documented as of this encounter
--- OUTSIDE RECORDS SUMMARY | 2024-05-11 12:07 | XMS_ITS | Encounter Summary ---
Author Organization [facility] Address [address] [place] [address] Care Team Providers Care Composition Floor Layer Name Role Phone Norma Summer K RN Unavailable Jacki Cabrera MD Primary Care Provider Encounter Details Date Type Department Care Team (Late st Contact Info) Description 03/06/2021 Orders Only [facility] [address] [place] [address], [place] [address] William Hammonds MD [address] [place] [address] [place] [address] Failed back syndrome ; Pre-op testing Social History Tobacco Use Types Packs/Day Years Used Date Smoking Tobacco: Every Day Cigarettes 1 19 Started: 02/17/1994; Last attempted to quit: 02/17/2013 Smokeless Tobacco: Never Comments:5 cigarettes per da y Alcohol Use Standard Drinks/Week Comments No 0 (1 standard drink = 0.6 oz pur e alcohol) occasional Sex and Gender Information Value Date Recorded Sex Assigned at Not on file Gender Identity Not on file Sexual Orientation Not on file documented as of this encounter Functional Status Functional Status Response [...] No 11/07/2014 documented as of this encounter Progress Notes * Sara Edge, RN - 03/06/2021 9:03 AM CDT Pre op orders faxed to [phone] per patients request. Neuromonitoring set up for patient for surgery on 03/16 @ 1000. Modalities include EMG, SSEP, MEP. Confirmation number is [id number]. 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
--- OUTSIDE RECORDS SUMMARY | 2024-05-11 12:07 | XMS_ITS | Encounter Summary ---
Author Organization [facility] Address [facility] [place] [address] Care Team Providers Care Carburizer Name Role Phone Unavailable Primary Care Provider Unavailabl e Encounter Details Date Type Department Care Team (Latest Contact Info) Description 10/18/2014 12:24 PM CDT - 10/18/2014 1:50 PM CDT Hospital Encounter [facility] PREADMISSION TESTING [address] [place] [id number] Marcus Hernandez MD [address] [place] [phone] Discharge Disposition: Home or Self Care Social [...] Sign Reading Time Taken Comments Blood Pressure - - Pulse - - Temperature - - Respiratory Rate - - Oxygen Saturation - - Inhaled Oxygen Concentration - - Weight 146.1 kg (322 lb) 10/18/2014 12:58 PM CDT Height 172.7 cm (5' 7.99 ) 10/18/2014 12:58 PM C DT Body Mass Index 48.97 10/18/2014 12:58 PM CDT documented in this encounter Medications at Time of Discharge Medication Sig Dispensed Refills Start Date End Date clobetasol (TEMOVATE) 0.05 % gel Apply to affected area as needed folic acid (FOLVITE) 1 MG tablet Take 1 mg by mouth once daily multivitamin with iron (ONE A DAY WITH IRON) tablet Take 1 Tab by mouth once daily Adalimumab (HUMIRA PEN SC) Inject 40 Units subcutaneously every 14 days 03/16/2021 B Complex Vitamins (VITAMIN B COMPLEX PO) Take 1 Tab by mouth once daily 03/16/2021 calcium 500 MG TABS tablet Take 500 mg by mouth 3 times daily 03/16/2021 COLACE 100 MG CAPS Take 100 mg by mouth once daily as needed 03/22/2021 cyanocobalamin (VITAMIN B-12) injection Inject 1,000 mcg into muscle every 30 days 03/16/2021 Ergocalciferol (VITAMIN D2) 2000 UNITS TABS Take 50,000 Units by mouth every 7 days 03/22/2021 hydrocodone-acetamino phen 7.5-325 MG/15ML solution Take 15 mL by mouth every 4 hours as needed 473 mL 5 11/07/2014 03/22/2021 insulin aspart (NOVOLOG) for insulin pump Inject subcutaneously as directed Basal rate 2.5 units 03/16/2021 LISINOPRIL PO Take 5 mg by mouth once daily 03/16/2021 methotrexate 2.5 MG tabletIndications:Pso riatic Arthritis Take 20 mg by mouth every 7 days Take 8 tablets Reasons: Psoriasis associated with Arthritis 03/22/2021 warfarin (COUMADIN) 4 MG tablet Take 1 Tab by mouth every evening 30 Tab 0 11/07/2014 03/16/2021 documented as of this encounter Progress Notes * Melly Cao RN - 10/18/2014 2:28 PM CDT Discussed pre-operative instructions with pt: Time of arrival, Medications to take DOS Valuable to be left at home (remove all rings, watches, body piercings, not to bring ibarra, credit cards (unless there is a co-pay). Any electronic devices brought to the hospital will be the sole responsibility of the individual. Your family/ friend will be responsible for your belongings during surgery. Pt given Preparing for Surgery booklet documented in this encounter Nursing Notes * Raquel Vaughn RN - 10/18/2014 1:12 PM CDT Chlorhexidine solution x2 given to patient and instructed to use the evening prior to surgery and the morning of surgery. documented in this encounter Plan of Treatment Not on file documented as of this encounter Procedures Procedure Name Priority Date/Time Associated Diagnosis Comments XR CHEST 2VW Routine 10/18/2014 1:54 PM CDT Other specified pre-operative examination PT-INR Routine 10/18/2014 1:14 PM CDT Other specified pre-operative examination CBC W AUTO DIFFERENTIAL Routine 10/18/2014 1:14 PM CDT Other specified pre-operative examination COMPREHENSIVE METABOLIC PANEL Routine 10/18/2014 1:14 PM CDT Other specified pre-operative examination URINALYSIS REFLEX TO MICROSCOPIC NO CULTURE Routine 10/18/2014 1:10 PM CDT Other specified pre-operative examination EKG 12-LEAD Routine 10/18/2014 1:08 PM CDT Pre-operative cardiovascular examination CULTURE MSSA/MRSA Routine 10/18/2014 10: 00 AM CDT Other specified pre-operative examination documented in this encounter Results * XR CHEST PA AND LATERAL (10/18/2014 1:54 PM CDT) Anatomical Region Laterality Modality Chest Radiographic Rivka ging 10/18/2014 2:38 PM CDT Impressions 10/18/2014 2:39 PM CDT No active disease. Narrative 10/18/2014 2:39 PM CDT Chest PA and lateral views. Indications: Preop for knee surgery PA and lateral views of the chest were obtained. Comparison: 2008 The heart is not enlarged. The aorta [...] views of the chest were obtained. Comparison: 2008 The heart is not enlarged. The aorta is normal in caliber. The lungs are clear. No confluent infiltrate or effusion is seen . There is no pneumothorax. The pulmonary vascularity is normal. No mass or adenopathy is seen. IMPRESSION No active disease. Marcus Hernandez MD DIAGNOSTIC IMAGING ORDERABLES * PT-INR (10/18/2014 1:14 PM CDT) Pathologist [facility] PT 10.4 9.5 - 11.6 sec 10/18/2014 1:54 PM CDT [facility] INR 1.0 0.9 - 1.1 10/18/2014 1:54 PM CDT [facility] Blood BLOOD SPECIMEN / Unknown Lab Venipuncture / Unknown 10/18/2014 1:14 PM CDT 10/18/2014 1:37 PM CDT Narrative [facility] - 10/18/2014 1:54 PM CDT Conventional Warfarin Anticoagulant Therapy INR Reference Range: ??2.0-3.0 Intensive Warfarin Anticoagulant Therapy INR Reference Range: ? 2.5-3.5 Marcus Hernandez MD LAB - COAGULATION O RDERABLES [facility] [address] [place] [address] * (ABNORMAL) CBC W AUTO DIFFERENTIAL (10/18/2014 1:14 PM CDT) Pathologist [facility] WBC 6.6 4.4 - 10.7 x10^9/L 10/18/2014 1:41 PM CDT [facility] WBC Corrected x10^9/L 10/18/2014 1:41 PM CDT [facility] RBC 4.58 3.80 - 5.20 x10^12/L 10/18/2014 1:41 PM [facility] Hemoglobin 13.6 12.0 - 15.6 gm/dL 10/18/2014 1:41 PM [facility] Hematocrit 41.5 35.9 - 45.5 % 10/18/2014 1:41 PM [facility] MCV 90.6 80.7 - 98.3 fl 10/18/2014 1:41 PM [facility] MCH 29.7 26.7 - 34.0 pg 10/18/2014 1:41 PM [facility] MCHC 32.8 30.8 - 35.9 gm/dL 10/18/2014 1:41 PM [facility] Platelet Count 143(L) 153 - 416 x10^9/L 10/18/2014 1:41 PM [facility] RDW-CV 14.9 12.1 - 14.9 % 10/18/2014 1:41 PM [facility] MPV 12.6 9.4 - 12.9 fl 10/18/2014 1:41 PM [facility] Neutrophils % 50.3 44.0 - 73.0 % 10/18/2014 1:41 PM [facility] Lymphocytes % 31.1 20.0 - 43.0 % 10/18/2014 1:41 PM [facility] Monocytes % 11.5 5.0 - 13.0 % 10/18/2014 1:41 PM [facility] Eosinophils % 6.6(H) 0.0 - 6.0 % 10/18/2014 1:41 PM [facility] Basophils % 0.3 0.0 - 2.0 % 10/18/2014 1:41 PM [facility] Immature Granulocytes 0.2 0 - 1 % 10/18/2014 1:41 PM [facility] Neutrophil Absolute 3.30 2.01 - 7.14 x10^9/L 10/18/2014 1:41 PM [facility] Lymphocytes Absolute 2.04 1.07 - 3.94 x10^9/L 10/18/2014 1:41 PM [facility] Monocytes Absolute 0.75 0.26 - 1.07 x10^9/L 10/18/2014 1:41 PM [facility] Eosinophils Absolute 0.43 0 - 0.47 x10^9/L 10/18/2014 1:41 PM CDT [facility] Basophils Absolute 0.02 0 - 0.08 x10^9/L 10/18/2014 1:41 PM CDT [facility] Immature Granulocytes Absolute 0.01 0.00 - 0.06 x10^9/L 10/18/2014 1:41 PM CDT [facility] Blood BLOOD SPECIMEN / Unknown Lab Venipuncture / Unknown 10/18/2014 1:14 PM CDT 10/18/2014 1:37 PM CDT Marcus Hernandez MD LAB - HEMATOLOGY OR DERABLES [facility] [address] [facility] [place] [address] * (ABNORMAL) COMPREHENSIVE METABOLIC PANEL (10/18/2014 1:14 PM CDT) Glucose 89 74 - 106 mg/dL 10/18/2014 1:59 PM [facility] Sodium 142 136 - 145 mmol/L 10/18/2014 1:59 PM [facility] Potassium 3.5 3.5 - 5.1 mmol/L 10/18/2014 1:59 PM [facility] Chloride 107 98 - 107 mmol/L 10/18/2014 1:59 PM [facility] CO2 32(H) 22 - 31 mmol/L 10/18/2014 1:59 PM [facility] Calcium 9.5 8.5 - 10.1 mg/dL 10/18/2014 1:59 PM [facility] Anion Gap 3(L) 5 - 15 mmol/L 10/18/2014 1:59 PM [facility] BUN 7 7 - 21 mg/dL 10/18/2014 1:59 PM [facility] Creatinine 0.51 0.50 - 1.30 mg/dL 10/18/2014 1:59 PM [facility] eGFR by MDRD >60 >60 mL/min/1.7 3m2 10/18/2014 1:59 PM [facility] eGFR by MDRD >60 >60 mL/min/1.7 3m2 10/18/2014 1:59 PM [facility] Alkaline Phosphatase 174(H) 38 - 126 U/L 10/18/2014 1:59 PM CDT [facility] ALT 38 12 - 78 U/L 10/18/2014 1:59 PM CDT [facility] AST 43(H) 5 - 40 U/L 10/18/2014 1:59 PM CDT [facility] Protein Total 7.8 6.4 - 8.2 gm/dL 10/18/2014 1:59 PM CDT [facility] Albumin 3.2(L) 3.4 - 5.0 gm/dL 10/18/2014 1:59 PM CDT [facility] Bilirubin Total 0.5 0.2 - 1.0 mg/dL 10/18/2014 1:59 PM CDT [facility] Blood BLOOD SPECIMEN / Unknown Lab Venipuncture / Unknown 10/18/2014 1:14 PM CDT 10/18/2014 1:37 PM CDT Marcus Hernandez MD LAB - CHEMISTRY ORD ERABLES [facility] [address] [facility] [place] [place] [address] * URINALYSIS ROUTINE AUTO (10/18/2014 1:10 PM CDT) Color UA Yellow Straw, Yellow, Dark Yellow 10/18/2014 2:15 PM CDT [facility] Clarity UA Clear 10/18/2014 2:15 PM CDT [facility] Specific Stevenson UA 1.010 1.005 - 1.030 10/18/2014 2:15 PM CDT [facility] pH UA 6.5 5.0 - 8.0 pH 10/18/2014 2:15 PM CDT [facility] Protein UA Negative Negative 10/18/2014 2:15 PM CDT [facility] Blood UA Negative Negative 10/18/2014 2:15 PM CDT [facility] Leukocyte UA Negative Negative 10/18/2014 2:15 PM CDT [facility] Nitrite UA Negative Negative 10/18/2014 2:15 PM CDT [facility] Glucose UA Negative Negative 10/18/2014 2:15 PM CDT [facility] Ketone UA Negative Negative 10/18/2014 2:15 PM CDT [facility] Bilirubin UA Negative Negative 10/18/2014 2:15 PM CDT [facility] Urobilinogen UA 1.0 0.1 - 1.0 EU/dL 10/18/2014 2:15 PM CDT [facility] Urine URINE SPECIMEN OBTAINED BY CLEAN CATCH PROCEDURE / Unknown Collection / Unknown 10/18/2014 1:10 PM CDT 10/18/2014 2:04 PM CDT Marcus Hernandez MD LAB - URINALYSIS OR DERABLES Performing Organization Address [facility] Co de Phone Number [facility] [address] [facility] [place] [address] * EKG 12-LEAD (10/18/2014 1:08 PM CDT) Ventricular Rate 65 BPM [facility] MUSE Atrial Rate 65 BPM [facility] P-R Interval 162 ms [facility] QRS Duration ms 100 ms [facility] Q-T Interval ms 422 ms [facility] MUSE QTC Calculation (Bezet) 438 ms [facility] MUSE Calculated P Chicken 44 degrees [facility]USE Calculated R Chicken 38 degrees [facility] Calculated T Chicken 24 degrees [facility] MUSE Interpretation EKG Normal sinus rhythm Normal ECG No previous ECGs available Confirmed by MD VIGNESH, NELY ([id number]) on 10/19/2014 9:54:30 AM [facility] MUSE 10/18/2014 1:08 PM CDT 10/19/2014 9:54 AM CDT Marcus Hernandez MD ECG ORDERABLES Performing Organization Address [facility] Co de Phone Number [facility] * CULTURE MSSA/MRSA (10/18/2014 10:00 AM CDT) Culture Negative for MRSA/MSSA BIANKA 10/19/2014 2:22 PM CDT [facility] MICROBIOLOGY Microbiology SPECIMEN FROM NASAL FOSSAE / Unknown 10/18/2014 10:00 AM CDT 10/18/2014 2:44 PM CDT Marcus Hernandez MD LAB - MICROBIOLOGY ORDERABLES Performing Organization Address [facility] Co de Phone Number [facility] MICROBIOLOGY [address] [place] [address], [facility] [phone] documented in this encounter Visit Diagnoses Diagnosis Other specified pre-operative examination- Primary Pre-operative cardiovascular examination documented in this encounter Additional Health Concerns Infection Onset Date Last Indicated Resolved Time MRSA 01/23/2008 01/23/2008 03/16/2021 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
--- OUTSIDE RECORDS SUMMARY | 2024-05-11 12:07 | XMS_ITS | Encounter Summary ---
Author Organization [facility] Address [address] [place] [address] Care Team Providers Care Stock [place] Supervisor Name Role Phone DetroitSummer dixon Marv RN Unavailable [phone] Jacki Cabrera MD Primary Care Provider Reason for Visit * Reason Comments Establish Care right jorge pain Encounter Details Date Type Department Care Team (Late st Contact Info) Description 12/23/2018 10:00 AM CDT Office Visit [facility] Orthopedics [id number] [place] [address], [facility] [address] [place] [address] Radha Zabala MD [address] [place] [address] Valgus deformity of foot, right (Primary Dx); History of ankle fusion Social History Tobacco Use Types Packs/Day Years [...] - Inhaled Oxygen Concentration - - Weight 119.3 kg (263 lb) 12/23/2018 10:31 AM CDT Height 172.7 cm (5' 8 ) 12/23/2018 10:31 AM CDT Body Mass Index 39.99 12/23/2018 10:31 AM CDT documented in this encounter Functional Status Functional [...] as of this encounter Progress Notes * Chrissie Barrow - 12/23/2018 10:18 AM CDT Right ankle pain documented in this encounter H&P Notes * Radha Zabala MD - 12/23/2018 8:14 PM CDT DATE OF SERVICE: 12/23/2018 SUBJECTIVE: Karolina Ramos is a 63-year-old female here regarding her right ankle. She started having problems with it more than 20 years ago. She had what sounded like some type of ligament issue, had surgery on it and had a subsequent one a number of years later. She continued to have progressive problems with it, eventually went on to have a fusion and then second one about a year and a half ago and it has never been right since. Her complaints now are that she cannot walk on it secondary to pain. When she sits, it aches. Driving is hard with the up and down motion on the pedal. She has pain that sometimes wakes her up at night. She cannot do stairs going down, it is actually worse than going up. She has been given several little gncz-plo-kpljvxw braces that do not seem to make any difference and she is now here for further evaluation and treatment. PAST MEDICAL HISTORY: High blood pressure, sleep apnea, diabetes, history of bladder infection. REVIEW OF SYSTEMS: Complaints of numb tingly problems on her foot, depression issues. FAMILY HISTORY: Heart disease, high blood pressure, diabetes, bladder infection problems, COPD. ALLERGIES: Includes penicillin gives her shortness of breath. CURRENT MEDICATIONS: Include Coumadin, Madison, Desyrel, Rexulti, Xtampza ER, Prilosec, oxycodone, prednisone, multivitamin, methotrexate, Mevacor, Zestoretic, lisinopril, NovoLog, glipizide, Neurontin, Folvite, vitamin D, Cymbalta, vitamin B12, Colace, calcium, BuSpar, Baclofen, vitamin D and HUMIRA Pen. PAST SURGICAL HISTORY: Numerous on the right foot and ankle. She has had both her knees replaced, her right one twice and right wrist surgery. SOCIAL HISTORY: She is a retired, disabled. She smokes maybe 5 cigarettes a day. She is not a drinker. PHYSICAL EXAMINATION: 5 feet 8 inches, 263 pounds. She has a deformity of her right foot, when she stands she got pretty significant hindfoot valgus. She has tenderness from the posterior tib tendon. She has tenderness around the peroneals. She is limited in her motion in her ankle as would be expected. She had a little bit of midfoot motion and that is not painful. Her toe mobility is good with no pain there. Neurological deficit in all her toes, almost hypersensitivity in the medial lateral aspect of the foot. X-RAYS: She comes in with a disk with some x-rays on it. I can only see one view, which appears to be an AP of the ankle. She has a total of 6 screws in with one broken one and what appears to be a tibiotalar fusion with her hindfoot in a valgus positioning. IMPRESSION/TREATMENT: I think there are essentially two options here: to have an department helper mold the foot to allow load sharing with walking. Otherwise, she is going to wear her knee out, not to mention the pain she'll be in. The other option is to move forward with one more operation. I have told her it is far more complex than I am willing to get involved with it. We will refer her to a foot and ankle specialist. She has more in agreement with that and followup will be as needed. Radha Zabala M.D. 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
--- OUTSIDE RECORDS SUMMARY | 2024-05-11 12:07 | XMS_ITS | Clinical Summary ---
Author Organization [facility] Address [address] [place] [address] Care Team Providers Care College Basketball Coach Name Role Phone Summer Green RN Unavailable [phone] Jacki Cabrera MD Primary Care Provider Source Comments [facility],non-owned Affiliates and Associated Physician Practices is amultiple site organization consisting of ambulatory clinics and hospital sitesin [place] and [place]. This disclosure is being madepursuant to the Care Everywhere program and may not contain all information available regarding this patient. Last updated 18.[facility] Allergies Active Allergy Reactions Criticality Noted Date Comments Povidone Iodine Rash Medium 03/18/2021 Metformin Nausea and/or Vomiting 06/05/2019 Penicillins Shortness of Breath,Rash,Unknown High Medications * Be aware that medications may not be up to date on this document. Alwaysverify current medications with the patient. Medication Sig Dispensed Refills Start Date End Date Status clobetasol (TEMOVATE) 0.05 % gel Apply to affected area as needed Active folic acid (FOLVITE) 1 MG tablet Take 1 mg by mouth once daily Active multivitamin with iron (ONE A DAY WITH IRON) tablet Take 1 Tab by mouth once daily Active TALTZ 80 MG/ML auto-injector pen 1 Dose 12/09/2018 Active NARCAN 4 MG/0.1ML nasal spray SYBIL REP ALN 09/10/2019 Active oxyCODONE, immediate release, (ROXICODONE) 5 MG tablet Take 1 (one) tablet by mouth every 4 hours as needed 12 tablet 03/22/2021 Active acetaminophen (TYLENOL) 325 MG tablet Take 2 (two) tablets by mouth every 6 hours as needed Maximum allowable Acetaminophen amount = 4 Grams (4000 mg) / 24 hours. 03/22/2021 Active cyclobenzaprine (FLEXERIL) 10 MG tablet Take 1 (one) tablet by mouth 2 times daily as needed 60 tablet 03/22/2021 Active nicotine (NICODERM CQ) 14 MG/24HR patch Apply 1 (one) patch to skin once daily 14 patch 2021 Active Additional Information Patient not taking.Reported on 04/03/2021 simvastatin (ZOCOR) 10 MG tablet Take 1 (one) tablet by mouth at bedtime 30 tablet 03/22/2021 Active Additional Information Patient not taking.Reported on 04/03/2021 lisinopril-hydroC HLOROthiazide (PRINZIDE; ZESTORETIC) 20-25 MG tablet Take 1 (one) tablet by mouth once daily 30 tablet 03/22/2021 Active polyethylene glycol 3350 (MIRALAX) 17 g packet Take 17 (seventeen) g by mouth once daily 30 packet 2021 Active Additional Information Patient not taking.Reported on 04/03/2021 senna (SENOKOT) 8.6 MG tablet Take 1 (one) tablet by mouth once daily 30 tablet 2021 Active busPIRone (BUSPAR) 5 MG tablet Take 1 (one) tablet by mouth 2 times daily 60 tablet 03/22/2021 Active gabapentin (NEURONTIN) 600 MG tablet Take 1 (one) tablet by mouth 3 times daily 90 tablet 03/22/2021 Active DULoxetine (CYMBALTA) 60 MG capsule Take 1 (one) capsule by mouth 2 times daily 60 capsule 03/22/2021 Active escitalopram (LEXAPRO) 10 MG tablet Take 1 (one) tablet by mouth once daily 30 tablet 03/22/2021 Active traZODone (DESYREL) 100 MG tablet Take 2 (two) tablets by mouth at bedtime 30 tablet 03/22/2021 Active sulfaSALAzine (AZULFIDINE) 500 MG tablet Take 1 (one) tablet by mouth 2 times daily 60 tablet 03/22/2021 Active calcitriol (ROCALTROL) 0.25 MCG capsule Take 1 (one) capsule by mouth once daily 30 capsule 03/22/2021 Active baclofen (LIORESAL) 10 MG tablet Take 1 (one) tablet by mouth at bedtime 30 tablet 03/22/2021 Active omeprazole (PRILOSEC) 20 MG capsule Take 1 (one) capsule by mouth at bedtime 30 capsule 03/22/2021 Active Ergocalciferol (VITAMIN D2) 50 MCG (2000 UT) Take 50,000 Units by mouth every 7 days 10 tablet 03/22/2021 Active prochlorperazine (COMPAZINE) 5 MG tablet Take 1 (one) tablet by mouth every 6 hours as needed for Nausea/Vomiting 10 tablet 03/22/2021 Active Additional Information Patient not taking.Reported on 04/03/2021 lovastatin (MEVACOR) 20 MG tablet 03/29/2021 Active XTAMPZA ER 18 MG capsule 03/29/2021 Active methotrexate (RHEUMATREX) 2.5 MG tablet 03/22/2021 Active Active Problems Problem Noted Date Diagnosed Date Acute midline thoracic back pain 03/18/2021 Sacral nerve stimulator present 03/18/2021 Sleep apnea 07/26/2009 Overview (02/03/2015): S/P TKR (total knee replacement) 04/15/2008 Generalized anxiety disorder 12/12/2007 Depression 12/12/2007 Hypertension 12/12/2007 GERD (gastroesophageal reflux disease) 8 Psoriasis 12/12/2007 Rheumatoid arthritis 12/12/2007 Overview (03/13/2015): MRSA (Methicillin Resistant Staphylococcus Aureu s) 12/12/2007 Overview (12/12/2007): 2006 ERROL (obstructive sleep apnea) 12/12/2007 Overview (12/12/2007): CPAP Other screening mammogram 12/12/2007 Overview (12/12/2007): 06 Pap smear, high-risk (screening, no prior abnorm ality) 12/12/2007 Overview (12/12/2007): hyst Chronic bilateral low back pain Immunizations Name Administration Dates Next Due INFLUENZA VACCINE, TRIV. (AF LURIA, FLUZONE TRIVALENT; 6MO+) (IIV3) 02/10/2008 COVID CRISTINA PRIMARY 18+YR 08/15/2020 DT 04/23/2002 PNEUMOCOCCAL PPSV23 08/13/2006 Family History Medical History Relation Name Comments Heart Failure Father Diabetes Mother Heart Failure Mother Arthritis - Rheumatoid Sister 1 Inna Other Sister 1 Inna COPD, SLE Relation Name Status Comments Brother 1 Shane Alive disabled x25 yr s from MVA, back deterioration Brother 2 Herminio Alive s/p CABG Father (Age 83) from heart problems, had CABG Mother (Age 63) from heart disease Sister 1 Inna Alive on hospice 8 SLE kidney involvement Sister 2 Shelia Alive disabled from b ack injury, COPD Sister 3 Ada Alive COPD Social History Tobacco Use Types Packs/Day Years [...] Comments Blood Pressure 151/91 04/03/2021 11:22 AM GUEST HISTORY CLERK Pulse 116 04/03/2021 11:22 AM GUEST HISTORY CLERK Temperature 36.8 ??C (98.2 ??F) 03/22/2021 8:21 AM CS T Respiratory Rate 18 03/22/2021 8:21 AM GUEST HISTORY CLERK Oxygen Saturation 96% 04/03/2021 11:22 AM GUEST HISTORY CLERK Inhaled Oxygen Concentration 100% 05/28/2008 1 :51 PM GUEST HISTORY CLERK Weight 118.8 kg (262 lb) 04/03/2021 11:22 AM GUEST HISTORY CLERK Height 172.7 cm (5' 8 ) 04/03/2021 11:22 AM GUEST HISTORY CLERK Body Mass Index 39.84 04/03/2021 11:22 AM GUEST HISTORY CLERK Plan of Treatment Health Maintenance Due Date Last Done Comments BONE DENSITY TESTING 1955 COLOGUARD (AGES 45-75) - COLON CA SCREENING 1957 COLON MONITORING 1957 COLONOSCOPY - COLON CA SCREENING 1955 CT COLONOGRAPHY - COLON CA SCREENING 1955 Colorectal Cancer Screening 1955 FIT - COLON CA SCREENING 1957 FLEX SIG - COLON CA SCREENING 1955 MAMMOGRAM 1955 MEDICARE AWV ? 12 MONTHS 1955 HEPATITIS C SCREENING 03/19/1975 ZOSTER VACCINE (1 of 2) 1976 PNEUMOCOCCAL VACCINE 65+ (2 of 2 - PCV) 08/14/2007 08/13/2006 DTAP/TDAP/TD VACCINES (2 - Tdap) 04/23/2012 04/23/2002 Respiratory Syncytial Virus (RSV) Vaccine Pt: or over 60 yrs (1 - Risk 60-74 years 1-dose series) 2017 COVID-19 VACCINE (3 - season) 2024 04/03/2021, 08/15/2020 INFLUENZA VACCINE (#1) 2024 , 02/16/2020, 02/22/2019, Additional history exists SCREENING FOR DIABETES 03/20/2024 , 03/19/2021, 03/19/2021, Additional history exists DEPRESSION SCREENING 05/06/2024 HEPATITIS B VACCINE Aged Out No longe r eligible based on patient's age to complete this topic HIB VACCINE Aged Out No longer eligi ble based on patient's age to complete this topic HPV VACCINE Aged Out No longer eligi ble based on patient's age to complete this topic MENINGOCOCCAL VACCINE Aged Out No marisela bianca eligible based on patient's age to complete this topic Medical Devices Implanted Type Area Education Analyst Device Identifier Shelf Expiration Date Model / Serial / Lot Elliott Bone Palacos Sgl 1 X 40 Implanted:Qt y: 2 on 11/03/2014 by Marcus Hernandez MD at [facility] Right: Knee [employer] 01/04/2018 [id number] / / [id number] Size 5 Right A/P 62mm, M/L 70mm Legion Hk Femoral Assembly Implanted:Qt y: 1 on 11/03/2014 by Marcus Hernandez MD at [facility] Right: Knee 02/03/2021 [id number] / / [id number] Elliott Bone Palacos R Implanted:Qt y: 2 on 11/03/2014 by Marcus Hernandez MD at [facility] Right: Knee [employer] 05/06/2019 [id number] / / [id number] Legion Hk Hinge Knee Tibial Baseplate Implanted:Qt y: 1 on 11/03/2014 by Marcus Hernandez MD at [facility] Right: Knee 01/04/2023 [id number] / / [id number] 18mm Neely And Sleeve Kit Implanted:Qt y: 1 on 11/03/2014 by Marcus Hernandez MD at [facility] Right: Knee 01/04/2022 [id number] / / [id number] Size 4-5 Right 18mm Locking Screw Included Legion Hk Guided Motion Articular Insert Implanted:Qt y: 1 on 11/03/2014 by Marcus Hernandez MD at [facility] Right: Knee 11/03/2020 [id number] / / [id number] Straight 14mm X 160mm Legion Pressfit Stem Implanted:Qt y: 1 on 11/03/2014 by Marcus Hernandez MD at [facility] Right: Knee 09/03/2024 [id number] / / [id number] 5mm Size 5 Legion Hk Implanted:Qt y: 1 on 11/03/2014 by Marcus Hernandez MD at [facility] Right: Knee 08/05/2023 [id number] / / [id number] Straight 18mm X 160mm Legion Pressfit Stem Implanted:Qt y: 1 on 11/03/2014 by Marcus Hernandez MD at [facility] Right: Knee 05/06/2024 [id number] / / [id number] 10mm Size 5 Legion Hk Implanted:Qt y: 1 on 11/03/2014 by Marcus Hernandez MD at [facility] Right: Knee 05/06/2023 [id number] / / [id number] Lead Nrstm 60cm Penta 3mm Pdl 16 Chnl - [id number] Implanted:Qt y: 1 on 03/16/2021 by William Hammonds MD at [facility] Spine Thoracic Advanced [employer] 09/23/2022 [id number] / [id number] / Slnt Dura Duraseal Pg Trilysine Amine 5 Implanted:Qt y: 1 on 03/16/2021 by William Hammonds MD at [facility] Thoracic [employer] Joel [id number] / / [id number] Description:BRIE Cable Nrstm Multilead Trl - [id number] Implanted:Qt y: 1 on 03/16/2021 by William Hammonds MD at [facility] Thoracic Abre[employer] Spine 11/02/2022 [id number] / [id number] / Description:BRIE Gntr Nrstm 1.95inx2.19i n Proclaim Elt - [id number] Implanted:Qt y: 1 on 03/16/2021 by William Hammonds MD at [facility] Thor[facility] [employer] 02/14/2023 [id number] / [id number] / Description:BRIE Procedures Procedure Name Priority Date/Time Associated Diagnosis Comments BASIC METABOLIC PANEL (CALCIUM TOTAL) STAT 03/20/2021 2:53 AM GUEST HISTORY CLERK Acute midline thoracic back pain from Last 3 Months or Most Recently Relevant to Health Maintenance Results * (ABNORMAL) BASIC METABOLIC PANEL (CALCIUM TOTAL) (03/20/2021 2:53 AM GUEST HISTORY CLERK) BUN 10 7 - 26 mg/dL 03/20/2021 3:21 AM [facility] Creatinine 0.65 0.56 - 0.96 mg/dL 03/20/2021 3:21 AM [facility] Sodium 142 136 - 145 mmol/L 03/20/2021 3:21 AM [facility] Potassium 3.9 3.5 - 4.5 mmol/L 03/20/2021 3:21 AM [facility] Chloride 104 98 - 107 mmol/L 03/20/2021 3:21 AM [facility] CO2 28 22 - 29 mmol/L 03/20/2021 3:21 AM [facility] Glucose 153(H) 70 - 115 mg/dL 03/20/2021 3:21 AM [facility] Calcium 10.9(H) 8.4 - 10.2 mg/dL 03/20/2021 3:21 AM [facility] Anion Gap 14 8 - 18 03/20/2021 3:21 AM [facility] BUN/Creatinine Ratio 15 7 - 23 03/20/2021 3:21 AM [facility] Osmolality Calculated 296 270 - 300 mOsm/kg 03/20/2021 3:21 AM [facility] eGFR by CKD-EPI >90 >=90 mL/min/1.7 3 m2 03/20/2021 3:21 AM [facility] Blood BLOOD SPECIMEN / Unknown Venipuncture / Unknown 03/20/2021 2:53 AM GUEST HISTORY CLERK 03/20/2021 2:56 AM GUEST HISTORY CLERK Reji Heller MD LAB - CHEMISTRY O RDERABLES Performing Organization Address City/State/[facility] Co de Phone Number [facility] [address] [place] [address], [facility] [phone] from Last 3 Months or Most Recently Relevant to Health Maintenance Additional Health Concerns Infection Onset Date Last Indicated MRSA Hx 03/16/2021 03/16/2021 Insurance Payer Benefit Plan / Group Subscriber ID Effective Dates Phone Address Type [facility] MANAGED MEDICARE ADV [facility] MEDICARE ADV [id number] Effective for all dates [address] [address] [place] [address] Medicare-Man aged Care SELF PAY NO INSURANCE SELF PAY NO INSURANCE Effective for all dates [place], [place] Self Pay U[employer] MANAGED MEDICARE ADV [facility] MEDICARE ADV [id number] Effective for all dates [address] [address] [place] [address] Medicare-Man aged Care SELF PAY NO INSURANCE SELF PAY NO INSURANCE Effective for all dates [place] Self Pay UHC MANAGED MEDICARE ADV [facility] MEDICARE ADV [id number] Effective for all dates [address] [address] [place] [address] Medicare-Man aged Care SELF PAY NO INSURANCE SELF PAY NO INSURANCE Effective for all dates [place] Self Pay UHC MANAGED MEDICARE ADV [facility] MEDICARE ADV HMO/POS [id number] 05/06/2021-Pres ent [phone] [address] [address] [place] [address] Medicare-Man aged Care MEDICAID - OUT OF STATE MEDICAID [facility] PUBLIC AID [id number] Effective for all dates [address] [address] [place] [address] Medicaid HUMANA GOLD PLUS HMO HUMANA MEDICARE ADV HMO/PPO [id number] 05/06/2018-Pres ent [id number] [phone] [address] [address] [place] [address] Medicare-Man aged Care [place]ARE [place] [id number] Effective for all dates [address] [place] [address] Medicare [place] [id number] Effective for all dates [address] [address] [place] [address] Medicaid [place] Advance Directives Documents on File Type Date Recorded Patient Home Appliance Tech Expl anation Adv Directive/Living Will/POA 11/08/2014 10:34 PM Adv Directive/Living Will/POA 11/03/2014 5:00 AM Power of Reactor Fueling Supervisor 06/02/2008 9:23 AM Adv Directive/Living Will/POA 06/02/2008 * Full Code (Latest Code Status on File) Date Activated Date Inactivated Comments 03/18/2021 9:09 PM 03/22/2021 6:08 PM * Full Code Date Activated Date Inactivated Comments 11/03/2014 9:02 AM 11/07/2014 3:48 PM * Full Code Date Activated Date Inactivated Comments 05/28/2008 4:11 PM 05/31/2008 10:22 PM * Full Code Date Activated Date Inactivated Comments 04/14/2008 12:49 PM 04/18/2008 1:25 AM Care Teams College Basketball Coach Relationship Specialty Start Date End Date Jacki Cabrera MD PCP - General Internal Medicine 11/04/14 Summer Green RN Manual Arts Therapist 11/03/14
--- OUTSIDE RECORDS SUMMARY | 2024-05-11 12:07 | XMS_ITS | Encounter Summary ---
Author Organization [facility] Address [address] [place] [address] Care Team Providers Care Inventory Representative Name Role Phone NormaSummer Marv RN Unavailable [phone] Jacki Cabrera MD Primary Care Provider Encounter Details Date Type Department Care Team (Late st Contact Info) Description 12/11/2016 11:15 AM CDT - 12/11/2016 11:59 PM T Hospital Encounter [facility] - Cardiology [address] [place], [place] [address] Mackenzie Pacheco MD [address] [place] [address] Lauro Babb MD [address] [place] [address] [place] [address] Discharge Disposition: Home or Self Care Social [...] Units by mouth every 7 days 03/22/2021 gabapentin (NEURONTIN) 600 MG tablet 600 mg 3 times daily 12/10/2016 021 hydrocodone-acetamino phen 7.5-325 MG/15ML solution Take 15 [...] capsule 20 mg at bedtime 10/21/2016 03/22/2021 traZODone (DESYREL) 100 MG tablet 200 mg at bedtime 11/26/2016 warfarin (COUMADIN) 4 MG tablet Take 1 Tab by mouth every evening 30 Tab 0 11/07/2014 03/16/2021 documented as of this encounter Procedure Notes * Yasmine Bass MD - 12/11/2016 11:59 PM CDTAssociated Order(s): HOLTER MONITOR [facility] Cardio Pulmonary Services Holter Monitor Report Patient:KAROLINA HANEY LPatient Type: CSN:[id number]/Age:13 1955 61 Stn/Rm/Bed:[facility] Sex/Race:F Unit #:[id number] Adrs:[address] Prim Phys: Attend Phys: [facility]/St/Zip:[place] [address] Admit Date:December 11, 2016Disch To: Disch Date: DATE TEST PERFORMED: 12/11/2016 24 hour monitor. Slowest heart rate 51, average 73, maximum 133. Rhythm is sinus. Infrequent APCs with small runs of SVT at a rate of 140 beats per minute. No evidence of atrial fibrillation. Rare APCs. The SVTs 3-4 beats only. No persistent sustained supraventricular tachycardia. No evidence of atrial fibrillation. Yasmine Bass M.D., Anthony, F.S.CYulissaA.I. NK/MODL /[id number] cc: Yasmine Bass M.D., Anthony, F.S.C.AYulissaIYulissa BASS M.D., Anthony, F.S.CYulissaAYulissaIYulissaHOLTER MONITOR REPORT documented in this encounter Plan of Treatment Not on file documented as of this encounter Procedures Procedure Name Priority Date/Time Associated Diagnosis Comments HOLTER MONITOR Routine 12/11/2016 12:00 PM CDT Syncope, unspecified syncope type documented in this encounter Results * HOLTER MONITOR (12/11/2016 12:00 PM CDT) 12/11/2016 12:0 0 PM CDT Narrative Procedure Note Yasmine Bass MD - 12/11/2016 11:59 PM CDT [facility] Cardio Pulmonary Services Holter Monitor Report Patient:KAROLINA HANEY LPatient Type: CSN:[id number]/Age:13 1955 61 Stn/Rm/Bed:[facility] Sex/Race:F Unit #:[id number] Adrs:[address] Prim Phys: Attend Phys: [facility]//Zip:[place] [address] Admit Date:December 11, 2016Disch To: Disch Date: DATE TEST PERFORMED: 12/11/2016 24 hour monitor. Slowest heart rate 51, average 73, maximum 133. Rhythm is sinus. Infrequent APCs with small runs of SVT at a rate of 140 beats per minute.No evidence of atrial fibrillation. Rare APCs. The SVTs 3-4 beats only. No persistent sustained supraventriculartachycardia. No evidence of atrial fibrillation. Yasmine Bass M.D., Brooks.Ludwig.C.C., F.S.C.A.I. NK/MODL /[id number] cc: Yasmine Bass M.D., Brooks.Ludwig.C.C., F.S.C.A.I. 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
--- OUTSIDE RECORDS SUMMARY | 2024-05-11 12:07 | XMS_ITS | Encounter Summary ---
Author Organization [facility] Address [address] [place] [address] Care Team Providers Care National Park Ranger Name Role Phone CrandallSummer dixon Marv RN Unavailable [phone] Jacki Cabrera MD Primary Care Provider Reason for Visit * Reason Comments Establish Care consults for scs Encounter Details Date Type Department Care Team (Late st Contact Info) Description 02/27/2021 2:00 PM CDT Office Visit [facility] [address], [address] [place] [address] William Hammonds MD [facility] [place] [id number] Chronic low back pain, unspecified back pain laterality, unspecified whether sciatica present (Primary Dx) Social History Tobacco Use Types Packs/Day Years [...] Sign Reading Time Taken Comments Blood Pressure 156/89 02/27/2021 2:03 PM CDT Pulse 85 02/27/2021 2:03 PM CDT Temperature - - Respiratory Rate - - Oxygen Saturation 96% 02/27/2021 2:03 PM CDT Inhaled Oxygen Concentration - - Weight 118.8 kg (262 lb) 02/27/2021 2:03 PM CDT Height 172.7 cm (5' 8 ) 02/27/2021 2:03 PM CDT Body Mass Index 39.84 02/27/2021 2:03 PM CDT documented in this encounter Functional Status [...] No 11/07/2014 documented as of this encounter Patient Instructions * Patient Instructions* Carla Traore - 02/27/2021 2:15 PM CDT To schedule an appointment please call [phone]. To reach the Pise[facility]'s office please call [phone]. For any nursing or surgery questions please call TESHA Ruiz at [phone]. documented in this encounter Progress Notes * William Hammonds MD - 02/27/2021 3:32 PM CDT NAME: AHSAN RAMOS : 1955 AGE: 65 PROVIDER: William Hammonds MD SEX: F DATE: 02/27/2021 I had the pleasure of seeing Ms. Ramos in the neurosurgery office today. HISTORY OF PRESENT ILLNESS: Ms. Ramos is [...] a dorsal column stimulation system with an [employer] device and presented with significant improvement of her pain. Therefore, she comes today for discussion of the surgery for placement of the final implant. Social History Socioeconomic History ??? Marital status: Spouse name: Not on file ??? Number of children: Not on file ??? Years of education: Not on file ??? Highest education level: Not on file Occupational History ??? 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 Smoking status: Current Every Day Smoker Packs/day: 1.00 Years: 19.00 Pack years: 19.00 Types: Cigarettes Last attempt to quit: 02/17/2013 Years since quittin.0 ??? Smokeless tobacco: Never Used ??? Tobacco comment: 5 cigarettes per day Vaping Use ??? Vaping Use: Never used Substance and Sexual Activity ??? Alcohol use: No Comment: occasional ??? Drug use: No ??? Sexual activity: Not on file Other Topics Concern ??? Not on file Social History Narrative ??? Not on file Social Determinants of Health Financial Resource Strain: Not on file Food Insecurity: Not on file Transportation Needs: Not on file Physical Activity: Not on file Stress: Not on file Social Connections: Not on file Intimate Partner Violence: Not on file Housing Stability: Not on file Past Medical History: Diagnosis Date ??? Arthritis rheumatoid ??? Constipation ??? Depression ??? Edema bilateral ankles ??? GERD (gastroesophageal reflux disease) ??? History of diabetes mellitus ??? Hypertension ??? MRSA (methicillin resistant Staphylococcus aureus) post right foot surgery ??? Overweight, obesity and other hyperalimentation ??? Psoriasis right leg, both elbows, scalp ??? Sleep apnea uses cpap machine Past Surgical History: Procedure Laterality Date ??? ANKLE FRACTURE TX 1999 right ??? ANKLE FRACTURE TX 2000 hardware removed ??? Arthroplasty 2006 left ??? Arthroplasty 2008 right knee,2008 ??? Back Surgery 1995 [id number] ??? Breast Reduction 1994 bilat ??? Bunionectomy 2007 right ??? Bunionectomy 1993 left ??? Hysterectomy 1989 vaginal ??? KNEE ARTHROPLASTY, REVISION Right 11/03/2014 Right; ARTHROPLASTY TOTAL KNEE REVISION HINGED KNEE ??? Knee Arthroscopy 1995 left ??? Knee Arthroscopy 1996 right ??? Salpingo-oophorectomy 2004 bilat ??? TUBAL LIGATION, LAPAROSCOPIC 1976 Family History Problem Relation Name Age of Onset ??? Heart Failure Mother ??? Diabetes Mother ??? Heart Failure Father ??? Arthritis - Rheumatoid Sister Inna ??? Other Sister Inna COPD, SLE Current Medications Adalimumab (HUMIRA PEN SC) Inject 40 Units subcutaneously every 14 days albuterol HFA (PROVENTIL;VENTOLIN;PROAIR) 108 (90 Base) MCG/ACT inhaler B Complex Vitamins (VITAMIN B COMPLEX PO) Take 1 Tab by mouth once daily baclofen (LIORESAL) 10 MG tablet 10 mg busPIRone (BUSPAR) 5 MG tablet calcitriol (ROCALTROL) 0.25 MCG capsule calcium 500 MG TABS tablet Take 500 mg by mouth 3 times daily calcium-vitamin D (OS-LINDSAY 500 + D) 500-200 mg-unit tablet Take 500 mg by mouth clobetasol (TEMOVATE) 0.05 % gel Apply to affected area as needed COLACE 100 MG CAPS Take 100 mg by mouth once daily as needed cyanocobalamin (VITAMIN B-12) injection Inject 1,000 mcg into muscle every 30 days DULoxetine (CYMBALTA) 60 MG capsule Take 60 mg by mouth 2 times daily Ergocalciferol (VITAMIN D2) 2000 UNITS TABS Take 50,000 Units by mouth every 7 days escitalopram (LEXAPRO) 10 MG tablet fluticasone propionate (FLONASE) 50 MCG/ACT nasal spray USE 1 SPRAY(S) IN EACH NOSTRIL ONCE DAILY folic acid (FOLVITE) 1 MG tablet Take 1 mg by mouth once daily gabapentin (NEURONTIN) 600 MG tablet 600 mg GLIPIZIDE XL 2.5 MG tablet 2.5 mg HYDROcodone-acetaminophen 7.5-325 MG/15ML solution 15 mL hydrocodone-acetaminophen 7.5-325 MG/15ML solution Take 15 mL by mouth every 4 hours as needed insulin aspart (NOVOLOG) for insulin pump Inject subcutaneously as directed Basal rate 2.5 units LISINOPRIL PO Take 5 mg by mouth once daily lisinopril-hydroCHLOROthiazide (PRINZIDE; ZESTORETIC) 20-25 MG tablet 1 tablet lovastatin (MEVACOR) 20 MG tablet Take 20 mg by mouth at bedtime methotrexate (RHEUMATREX) 2.5 MG tablet methotrexate 2.5 MG tablet Take 2.5 mg by mouth every 7 days Takes 5 tablets ReasonsPsoriasis associated with Arthritis multivitamin with iron (ONE A DAY WITH IRON) tablet Take 1 Tab by mouth once daily NARCAN 4 MG/0.1ML nasal spray SYBIL REP ALN omeprazole (PRILOSEC) 20 MG capsule 20 mg oxyCODONE, immediate release, (ROXICODONE) 5 MG tablet predniSONE (DELTASONE) 5 MG tablet 5 mg REXULTI 0.5 MG tablet Take 0.5 mg by mouth once daily for 30 days sulfaSALAzine (AZULFIDINE) 500 MG tablet TALTZ 80 MG/ML auto-injector pen 1 Dose traZODone (DESYREL) 100 MG tablet 200 mg warfarin (COUMADIN) 4 MG tablet Take 1 Tab by mouth every evening XTAMPZA ER 13.5 MG capsule 18 mg PHYSICAL EXAMINATION: The patient is in mild [...] distribution of the L5 and S1 dermatomes. REVIEW OF DIAGNOSTIC STUDIES: The patient had [...] revealed some degenerative changes withoutsignificant central canal foraminal stenosis. Intraoperative x-rays during the trial revealed idealstimulation with electrodes covering the T10 and the T10-T11 disk space. MEDICAL DECISION MAKING: I told the patient [...] need for removal of the whole system. The patient would like to proceed with the surgery, which will be scheduled for the near future. Thank you for allowing us to participate in the care of your patient. 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
--- OUTSIDE RECORDS SUMMARY | 2024-05-11 12:07 | XMS_ITS | Encounter Summary ---
Author Organization [facility] Address [address] [place] [address] Care Team Providers Care Circular Knife Cutter Machine Name Role Phone NallenSummer dixon Marv RN Unavailable [phone] Jacki Cabrera MD Primary Care Provider Reason for Visit * Reason Comments Pain Back Pt BIBEMS for severe lower back pain. Pt had nerve stimulator placed last week at [place], since then has had unresolved pain. Hx of L4-L5 fusion. 4mg morphine given in route by EMS, pain 10. Pt was referred to come to this hospital for specialty care. AOx4, appears calm. * Auth/Cert Specialty Diagnoses / Procedures Referred By Calvin bentley Referred To Contact Referral ID Status Reason Start Date Expiration Date Visits Re quested Visits Authorized [id number] 1 1 Encounter Details Date Type Department Care Team (Latest Contact Info) Description 03/18/2021 6:07 AM CREDIT INVESTIGATOR - 03/22/2021 5:02 PM [facility] Hospital Encounter [facility] 8S ACUTE [address] [place] [id number] Darrick Mancia MD [address] [facility] [place] [address] Reji Heller MD [address] [facility] [address] [facility] [address] Juan Ramon Dailey MD [address] [place] [id number] Lucius Camarillo MD [address] [place] [address] Internal Medicine Discharge Disposition: Home Health Care Svc Social History Tobacco Use Types Packs/Day Years [...] Sign Reading Time Taken Comments Blood Pressure 157/64 03/22/2021 8:21 AM CREDIT INVESTIGATOR Pulse 102 03/22/2021 8:21 AM CREDIT INVESTIGATOR Temperature 36.8 ??C (98.2 ??F) 03/22/2021 8:21 AM CS T Respiratory Rate 18 03/22/2021 8:21 AM CREDIT INVESTIGATOR Oxygen Saturation 95% 03/22/2021 11:46 AM CREDIT INVESTIGATOR Inhaled Oxygen Concentration - - Weight 118.8 kg (262 lb) 03/18/2021 6:16 AM CREDIT INVESTIGATOR Height 172.7 cm (5' 8 ) 03/18/2021 6:16 AM CREDIT INVESTIGATOR Body Mass Index 39.84 03/18/2021 6:16 AM CREDIT INVESTIGATOR documented in this encounter Functional Status Functional Status Response Date of Assess ment Is person deaf or have serious hearing difficult y? No 03/22/2021 Is person blind or have serious difficulty seein g? No 03/22/2021 Does person have serious dif ficulty walking/climbing stairs? No 03/22/2021 Does person have difficulty dressing/bathing? No 03/22/2021 Does person have difficulty doing errands alone? No 03/22/2021 Cognitive Status Response Date of Assessm ent Does person have difficulty concentrating/remembering/making decisions? No 03/22/2021 documented as of this encounter Discharge Summaries * Feli Lafleur MD - 03/22/2021 2:37 PM CST Images from the original note were not included. [facility] DISCHARGE SUMMARY PATIENT: Karolina Ramos 65 year old female : 1955 ADMISSION INFO ADMISSION DISCHARGE Date: 03/18/2021 Date: 03/22/2021 Adm. Physician Reji Heller MD Disch. Physician: Lucius Camarillo MD Condition: Stable Condition: Stable Reason for Admission: Back pain Encounter Diagnoses: 1. Acute midline thoracic back pain 2. Sacral nerve stimulator present 3. Pre-diabetes 4. Vitamin D deficiency HOSPITAL COURSE Karolina Ramos??is a 65 year old??female??w/ PMH Pre-diabetes, Arthitis, psoriasis, ERROL,??s/p slingplacement and Botox therapy,??Gastric bypass surgery (4 years ago), depression, GERD, and HTN that comes to the ED because of severe lower back pain. Pt had Neurosurgery last at [facility] for a nerve stimulator because of??chronic??back pain. ?She is followed by pain management for over a year, they are the ones who are prescribing her [place]. According to her she was not prescribed any pain meds post surgery. Xray and neurosurgery consult confirmed that no acute intervention needed for the new implant. She was started on medrol and oxy 5 which really helped her pain back to 0-1/10. Patient was also frustrated that she is not able to move like before. PT originally recommended acute rehab, but then modified recommendation to home health. The patientat first wanted rehab but then wanted to be discharged before her birthday with home health. Referral was sent before discharge. On 03/22/2021, she is being discharged to home with HHPT. CONSULTS IP CONSULT TO NEUROSURGERY IP CONSULT TO HOME HEALTH CARE DISCHARGE EXAM BP 157/64 Pulse 102 Temp 98.2 ??F (36.8 ??C) (Oral) Resp 18 Ht 1.727 m (5' 8 ) Wt 118.8 kg (262 lb)SpO2 95% BMI 39.84 kg/m2 General: Awake, cooperative, in no distress. Lungs: Clear to auscultation bilaterally, no crackles, no wheezes. Heart: RRR, S1 / S2 normal, no murmurs. No JVD. Abdomen: Bowel sounds normal, soft, non-tender, non-distended, no masses. Skin: Back surgery scars, clean. No erythema or pus. DISCHARGE PLANNING Disposition: Home Diet: Regular Activity Level: Ad lg with supervision Monitoring: HHPT/OT Follow-up appointments: You have an appointment with your PCP on April [address] Caballero. You will be contacted by a discharge starting sheet tank operator to make the following appointments: Neurosurgery follow up with Dr. Ruiz Instructions given to the patient: Medications: Current Discharge Medication List START taking these medications Instructions Authorizing Provider acetaminophen 325 MG tablet Commonly known as: Tylenol Take 2 (two) tablets by mouth every 6 hours as needed Maximum allowable Acetaminophen amount = 4 Grams (4000 mg) / 24 hours. Feli Lafleur MD Methotrexate Sodium 10 MG Quantity Dispensed: 10 tablet Replaces: methotrexate 2.5 MG tablet Start taking on: March 28, 2021 Take 20 mg by mouth every 7 days Reasons: Psoriasis associated with Arthritis Feli Lafleur MD * methylPREDNISolone 4 MG tablet Commonly known as: Medrol Quantity Dispensed: 1 tablet Take 1 (one) tablet by mouth at bedtime for 1 day Feli Lafleur MD * methylPREDNISolone 4 MG tablet Commonly known as: Medrol Quantity Dispensed: 1 tablet Start taking on: 2021 Take 1 (one) tablet by mouth daily before breakfast for 1 day Feli Lafleur MD nicotine 14 MG/24HR patch Commonly known as: Nicoderm CQ Quantity Dispensed: 14 patch Start taking on: 2021 Apply 1 (one) patch to skin once daily Feli Lafleur MD oxyCODONE (immediate release) 5 MG tablet Commonly known as: Roxicodone Quantity Dispensed: 12 tablet Take 1 (one) tablet by mouth every 4 hours as needed Feli Lafleur MD polyethylene glycol 3350 17 g packet Commonly known as: Miralax Quantity Dispensed: 30 packet Start taking on: 2021 Take 17 (seventeen) g by mouth once daily Feli Lafleur MD prochlorperazine 5 MG tablet Commonly known as: Compazine Quantity Dispensed: 10 tablet Take 1 (one) tablet by mouth every 6 hours as needed for Nausea/Vomiting Feli Lafleur MD sennosides 8.6 MG tablet Commonly known as: Senokot Quantity Dispensed: 30 tablet Start taking on: 2021 Take 1 (one) tablet by mouth once daily Feli Lafleur MD simvastatin 10 MG tablet Commonly known as: Zocor Quantity Dispensed: 30 tablet Replaces: lovastatin 20 MG tablet Take 1 (one) tablet by mouth at bedtime Feli Lafleur MD * This list has 2 medication(s) that are the same as other medications prescribed for you. Read thedirections carefully, and ask your doctor or other care provider to review them with you. CONTINUE taking these medications which have CHANGED Instructions Authorizing Provider baclofen 10 MG tablet What changed: how to take this Commonly known as: Lioresal Quantity Dispensed: 30 tablet Take 1 (one) tablet by mouth at bedtime Feli Lafleur MD busPIRone 5 MG tablet What changed: ?? how much to take ?? how to take this ?? when to take this Commonly known as: Buspar Quantity Dispensed: 60 tablet Take 1 (one) tablet by mouth 2 times daily Feli Lafleur MD cyclobenzaprine 10 MG tablet What changed: ?? when to take this ?? reasons to take this Commonly known as: Flexeril Quantity Dispensed: 60 tablet Take 1 (one) tablet by mouth 2 times daily as needed Feli Lafleur MD escitalopram 10 MG tablet What changed: how to take this Commonly known as: Lexapro Quantity Dispensed: 30 tablet Take 1 (one) tablet by mouth once daily Feli Lafleur MD gabapentin 600 MG tablet What changed: how to take this Commonly known as: Neurontin Quantity Dispensed: 90 tablet Take 1 (one) tablet by mouth 3 times daily Feli Lafleur MD lisinopril-hydroCHLOROthiazide 20-25 MG tablet What changed: ?? how to take this ?? when to take this Commonly known as: Prinzide; Zestoretic Quantity Dispensed: 30 tablet Take 1 (one) tablet by mouth once daily Feli Lafleur MD omeprazole 20 MG capsule What changed: how to take this Commonly known as: PriLOSEC Quantity Dispensed: 30 capsule Take 1 (one) capsule by mouth at bedtime Feli Lafleur MD sulfaSALAzine 500 MG tablet What changed: how to take this Commonly known as: Azulfidine Quantity Dispensed: 60 tablet Take 1 (one) tablet by mouth 2 times daily Feli Lafleur MD traZODone 100 MG tablet What changed: how to take this Commonly known as: Desyrel Quantity Dispensed: 30 tablet Take 2 (two) tablets by mouth at bedtime Feli Lafleur MD CONTINUE taking these medications which have NOT CHANGED Instructions Authorizing Provider calcitriol 0.25 MCG capsule Commonly known as: Rocaltrol Quantity Dispensed: 30 capsule Take 1 (one) capsule by mouth once daily Feli Lafleur MD clobetasol 0.05 % gel Commonly known as: Temovate Apply to affected area as needed DULoxetine 60 MG capsule Commonly known as: Cymbalta Quantity Dispensed: 60 capsule Take 1 (one) capsule by mouth 2 times daily Feli aLfleur MD folic acid 1 MG tablet Commonly known as: Folvite Take 1 mg by mouth once daily multivitamin with iron tablet Take 1 Tab by mouth once daily Narcan 4 MG/0.1ML nasal spray Generic drug: naloxone HCl SYBIL REP ALN Taltz 80 MG/ML auto-injector pen Generic drug: ixekizumab 1 Dose Vitamin D2 50 MCG (1999 UT) Quantity Dispensed: 10 tablet Take 50,000 Units by mouth every 7 days Feli Lafleur MD STOP taking these medications albuterol HFA 108 (90 Base) MCG/ACT inhaler Commonly known as: Proventil; Ventolin; Proair Colace 100 MG capsule Generic drug: docusate sodium fluticasone propionate 50 MCG/ACT nasal spray Commonly known as: Flonase HYDROcodone-acetaminophen 7.5-325 MG/15ML solution lovastatin 20 MG tablet Commonly known as: Mevacor Replaced by: simvastatin 10 MG tablet methotrexate 2.5 MG tablet Replaced by: Methotrexate Sodium 10 MG predniSONE 5 MG tablet Commonly known as: Deltasone Xtampza ER 13.5 MG capsule Generic drug: oxyCODONE ER 12hr Further Instructions: Please contact your surgeon for any opoid prescriptions. Feli Lafleur MD Internal Medicine PGY-1 [facility] 03/22/2021 2:37 PM IT INVESTIGATOR Associated attestation - Lucius Camarillo MD - 2021 5:46 PM CREDIT INVESTIGATOR I have verified the documentation of the resident including all history, exam, and medical decision-making details. I have personally performed a physical exam and have personally reviewed the data to support my medical decision-making as outlined in their note. I agree with their assessment and plan other than any corrections/additions as documented below. Corrections/Additions: - I personally participated in greater than 30 minutes of discharge planning activities for this patient. Date of Service: 03/22/2021 Lucius Camarillo MD documented in this encounter Discharge Instructions * Discharge Instructions* Feli Lafleur MD - 03/22/2021 12:02 PM CREDIT INVESTIGATOR Images from the original note were not included. [facility] SUMMARY OF HOSPITALIZATION (03/18/2021 through 03/22/2021) Ms. Rachel Rodriguez were admitted to [facility] on 03/18/2021 for back pain. We confirmed the location of the spinal implant with neurosurgery a On 03/22/2021, we felt that you were ready for discharge from the hospital. ----- PLEASE NOTE THE FOLLOWIN. Medications: Please take only the medications as described in the table below: Current Discharge Medication List START taking these medications Instructions Authorizing Provider acetaminophen 325 MG tablet Commonly known as: Tylenol Take 2 (two) tablets by mouth every 6 hours as needed Maximum allowable Acetaminophen amount = 4 Grams (4000 mg) / 24 hours. Feli Lafleur MD Methotrexate Sodium 10 MG Quantity Dispensed: 10 tablet Replaces: methotrexate 2.5 MG tablet Start taking on: March 28, 2021 Take 20 mg by mouth every 7 days Reasons: Psoriasis associated with Arthritis Feli Lafleur MD * methylPREDNISolone 4 MG tablet Commonly known as: Medrol Quantity Dispensed: 1 tablet Take 1 (one) tablet by mouth at bedtime for 1 day Feli Lafleur MD * methylPREDNISolone 4 MG tablet Commonly known as: Medrol Quantity Dispensed: 1 tablet Start taking on: 2021 Take 1 (one) tablet by mouth daily before breakfast for 1 day Feli Lafleur MD nicotine 14 MG/24HR patch Commonly known as: Nicoderm CQ Quantity Dispensed: 14 patch Start taking on: 2021 Apply 1 (one) patch to skin once daily Feli Lafleur MD oxyCODONE (immediate release) 5 MG tablet Commonly known as: Roxicodone Quantity Dispensed: 12 tablet Take 1 (one) tablet by mouth every 4 hours as needed Feli Lafleur MD polyethylene glycol 3350 17 g packet Commonly known as: Miralax Quantity Dispensed: 30 packet Start taking on: 2021 Take 17 (seventeen) g by mouth once daily Feli Lafleur MD prochlorperazine 5 MG tablet Commonly known as: Compazine Quantity Dispensed: 10 tablet Take 1 (one) tablet by mouth every 6 hours as needed for Nausea/Vomiting Feli Lafleur MD sennosides 8.6 MG tablet Commonly known as: Senokot Quantity Dispensed: 30 tablet Start taking on: 2021 Take 1 (one) tablet by mouth once daily Feli Lafleur MD simvastatin 10 MG tablet Commonly known as: Zocor Quantity Dispensed: 30 tablet Replaces: lovastatin 20 MG tablet Take 1 (one) tablet by mouth at bedtime Feli Lafleur MD * This list has 2 medication(s) that are the same as other medications prescribed for you. Read thedirections carefully, and ask your doctor or other care provider to review them with you. CONTINUE taking these medications which have CHANGED Instructions Authorizing Provider baclofen 10 MG tablet What changed: how to take this Commonly known as: Lioresal Quantity Dispensed: 30 tablet Take 1 (one) tablet by mouth at bedtime Feli Lafleur MD busPIRone 5 MG tablet What changed: ?? how much to take ?? how to take this ?? when to take this Commonly known as: Buspar Quantity Dispensed: 60 tablet Take 1 (one) tablet by mouth 2 times daily Feli Lafleur MD cyclobenzaprine 10 MG tablet What changed: ?? when to take this ?? reasons to take this Commonly known as: Flexeril Quantity Dispensed: 60 tablet Take 1 (one) tablet by mouth 2 times daily as needed Feli Lafleur MD escitalopram 10 MG tablet What changed: how to take this Commonly known as: Lexapro Quantity Dispensed: 30 tablet Take 1 (one) tablet by mouth once daily Feli Lafleur MD gabapentin 600 MG tablet What changed: how to take this Commonly known as: Neurontin Quantity Dispensed: 90 tablet Take 1 (one) tablet by mouth 3 times daily Feli Lafleur MD lisinopril-hydroCHLOROthiazide 20-25 MG tablet What changed: ?? how to take this ?? when to take this Commonly known as: Prinzide; Zestoretic Quantity Dispensed: 30 tablet Take 1 (one) tablet by mouth once daily Feli Lafleur MD omeprazole 20 MG capsule What changed: how to take this Commonly known as: PriLOSEC Quantity Dispensed: 30 capsule Take 1 (one) capsule by mouth at bedtime Feli Lafleur MD sulfaSALAzine 500 MG tablet What changed: how to take this Commonly known as: Azulfidine Quantity Dispensed: 60 tablet Take 1 (one) tablet by mouth 2 times daily Feli Lafleur MD traZODone 100 MG tablet What changed: how to take this Commonly known as: Desyrel Quantity Dispensed: 30 tablet Take 2 (two) tablets by mouth at bedtime Feli Lafleur MD CONTINUE taking these medications which have NOT CHANGED Instructions Authorizing Provider calcitriol 0.25 MCG capsule Commonly known as: Rocaltrol Quantity Dispensed: 30 capsule Take 1 (one) capsule by mouth once daily Feli Lafleur MD clobetasol 0.05 % gel Commonly known as: Temovate Apply to affected area as needed DULoxetine 60 MG capsule Commonly known as: Cymbalta Quantity Dispensed: 60 capsule Take 1 (one) capsule by mouth 2 times daily Feli Lafleur MD folic acid 1 MG tablet Commonly known as: Folvite Take 1 mg by mouth once daily multivitamin with iron tablet Take 1 Tab by mouth once daily Narcan 4 MG/0.1ML nasal spray Generic drug: naloxone HCl SYBIL REP ALN Taltz 80 MG/ML auto-injector pen Generic drug: ixekizumab 1 Dose Vitamin D2 50 MCG (2000 UT) Quantity Dispensed: 10 tablet Take 50,000 Units by mouth every 7 days Feli Lafleur MD STOP taking these medications albuterol HFA 108 (90 Base) MCG/ACT inhaler Commonly known as: Proventil; Ventolin; Proair Colace 100 MG capsule Generic drug: docusate sodium fluticasone propionate 50 MCG/ACT nasal spray Commonly known as: Flonase HYDROcodone-acetaminophen 7.5-325 MG/15ML solution lovastatin 20 MG tablet Commonly known as: Mevacor Replaced by: simvastatin 10 MG tablet methotrexate 2.5 MG tablet Replaced by: Methotrexate Sodium 10 MG predniSONE 5 MG tablet Commonly known as: Deltasone Xtampza ER 13.5 MG capsule Generic drug: oxyCODONE ER 12hr 2. Follow up: You have an appointment with your PCP on April [address] Caballero. You will be contacted by a discharge starting sheet tank operator to make the following appointments: Neurosurgery follow up with Dr. Ruiz 3. Lifestyle Modifications: - Please AVOID smoking cigarettes. Please talk to your Primary Care Physician if you need help quitting smoking. - Please cut down on alcohol use. Please talk with your Primary Care Physician if you need help cutting down or quitting drinking alcohol. - Please maintain a healthy diet including fresh fruits & vegetables, low-salt food, and low-calorie food in order to help you lose weight and live a healthy lifestyle. - Discuss an exercise program with your Primary Care Physician. We recommended that most individuals exercise for 20 minutes at least 5 times per week 4. In the case of emergency: - Please call your physician or report to the nearest emergency room if you develop new or concerning symptoms, including, but not limited to, chest pain, palpitations, shortness of breath, nausea, vomiting, confusion, and/or numbness or tingling. Thank you for allowing us to participate in your care. Sincerely, [facility] phone number: Scheduling line phone number: IT INVESTIGATOR * Attachments The following attachments cannot be sent through Care Everywhere. * Back Pain (AfterCare(R) Instructions(ER/ED)) (East Timorese) documented in this encounter Medications at Time of Discharge Medication Sig Dispensed Refills Start Date End Date acetaminophen (TYLENOL) 325 MG tablet Take 2 (two) tablets by mouth every 6 hours as needed Maximum allowable Acetaminophen amount = 4 Grams (4000 mg) / 24 hours. 03/22/2021 baclofen (LIORESAL) 10 MG tablet Take 1 (one) tablet by mouth at bedtime 30 tablet 03/22/2021 busPIRone (BUSPAR) 5 MG tablet Take 1 (one) tablet by mouth 2 times daily 60 tablet 03/22/2021 calcitriol (ROCALTROL) 0.25 MCG capsule Take 1 (one) capsule by mouth once daily 30 capsule 03/22/2021 clobetasol (TEMOVATE) 0.05 % gel Apply to affected area as needed cyclobenzaprine (FLEXERIL) 10 MG tablet Take 1 (one) tablet by mouth 2 times daily as needed 60 tablet 03/22/2021 DULoxetine (CYMBALTA) 60 MG capsule Take 1 (one) capsule by mouth 2 times daily 60 capsule 03/22/2021 Ergocalciferol (VITAMIN D2) 50 MCG (2000 UT) Take 50,000 Units by mouth every 7 days 10 tablet 03/22/2021 escitalopram (LEXAPRO) 10 MG tablet Take 1 (one) tablet by mouth once daily 30 tablet 03/22/2021 folic acid (FOLVITE) 1 MG tablet Take 1 mg by mouth once daily gabapentin (NEURONTIN) 600 MG tablet Take 1 (one) tablet by mouth 3 times daily 90 tablet 03/22/2021 lisinopril-hydroCHLO ROthiazide (PRINZIDE; ZESTORETIC) 20-25 MG tablet Take 1 (one) tablet by mouth once daily 30 tablet 03/22/2021 methotrexate (RHEUMATREX) 2.5 MG tablet 03/22/2021 multivitamin with iron (ONE A DAY WITH IRON) tablet Take 1 Tab by mouth once daily NARCAN 4 MG/0.1ML nasal spray SYBIL REP ALN 09/10/2019 nicotine (NICODERM CQ) 14 MG/24HR patch Apply 1 (one) patch to skin once daily 14 patch 2021 omeprazole (PRILOSEC) 20 MG capsule Take 1 (one) capsule by mouth at bedtime 30 capsule 03/22/2021 oxyCODONE, immediate release, (ROXICODONE) 5 MG tablet Take 1 (one) tablet by mouth every 4 hours as needed 12 tablet 03/22/2021 polyethylene glycol 3350 (MIRALAX) 17 g packet Take 17 (seventeen) g by mouth once daily 30 packet 2021 prochlorperazine (COMPAZINE) 5 MG tablet Take 1 (one) tablet by mouth every 6 hours as needed for Nausea/Vomiting 10 tablet 03/22/2021 senna (SENOKOT) 8.6 MG tablet Take 1 (one) tablet by mouth once daily 30 tablet 2021 simvastatin (ZOCOR) 10 MG tablet Take 1 (one) tablet by mouth at bedtime 30 tablet 03/22/2021 sulfaSALAzine (AZULFIDINE) 500 MG tablet Take 1 (one) tablet by mouth 2 times daily 60 tablet 03/22/2021 TALTZ 80 MG/ML auto-injector pen 1 Dose 12/09/2018 traZODone (DESYREL) 100 MG tablet Take 2 (two) tablets by mouth at bedtime 30 tablet 03/22/2021 methotrexate 10 MGIndications:Psoria tic Arthritis Take 20 mg by mouth every 7 days Reasons: Psoriasis associated with Arthritis 10 tablet 03/28/2021 04/03/2021 methylPREDNISolone (MEDROL) 4 MG tablet Take 1 (one) tablet by mouth daily before breakfast for 1 day 1 tablet 2021 03/24/2021 methylPREDNISolone (MEDROL) 4 MG tablet Take 1 (one) tablet by mouth at bedtime for 1 day 1 tablet 03/22/2021 2021 documented as of this encounter Progress Notes * Deng Monson RN - 03/22/2021 5:02 PM CST Discharge Date: 03/22/2021 Transportation at time of Discharge: private car Family Member who will transport: patient arranged Home Health Care Accepting Agency: [facility] Group Phone Number for Home Health Care Agency: [phone] Date Services to begin: 24 to 48 hours Comments: no further case management needs at this time. Deng Monson, MSN, cabinetmaker apprentice Office:[phone] 2021 IT INVESTIGATOR * Varun Sargent - 03/22/2021 5:02 PM CST Discharge Director Auto received request from Dr. Feli Lafleur to arrange follow-up appointment for Patient with Neurosurgery (Dr. Hammonds). Ms. Ramos has an already scheduled appointment with Dr. William Hammonds on 04/03/21 @ 11:45am. Director Auto is mailing discharge letter to pt 's home. No further follow-up needs from starting sheet tank operator indicated at this time. Varun Sargent, Discharge Director Auto 03/24/2021 IT INVESTIGATOR * Yane Kaur CPhT - 03/22/2021 4:28 PM CST MEDICATION TO BEDSIDE DELIVERY: COMPLETE Medication to Bedside delivery was completed for Karolina Ramos. ??? A total of 14 prescriptions were delivered to the patient for discharge. ??? Medications were given to PATIENT (NURSE GUSTAVO WAS IN THE ROOM WHEN MEDS WERE DELIVERED) ??? This delivery included a controlled substance: YES, given to PATIENT; NURSE GUSTAVO IS AWARE ??? This delivery included medication that should be stored in the fridge: NO Thank you for allowing the outpatient pharmacy to participate in the care of Karolina Ramos. If you have any questions, please contact the outpatient pharmacy at [phone]. Yane Kaur CPhT [facility] at [address] [place] [address] Hours of Operation Saturday - Saturday: 8:00am to 6:00pm Saturday: 9:00am to 1:00pm Epic: [facility] *Ensure the patient and clinic's nearby ZIP codes box is unchecked* IT INVESTIGATOR * Ashley Galan, RN - 03/22/2021 2:22 PM CST [facility] Rehab following for inpatient rehab. Request was denied by the [facility] Ref number [id number] P2P can be set up by calling [phone] opt 1 before 1430 on 03/24 Please have providers name with spelling, direct phone number, availability Thank you for the referral. Ashley Galan RN, BSN Senior Clinical Liaison [facility] [phone] IT INVESTIGATOR * Gustavo Floyd RN - 03/22/2021 11:35 AM CST Problem: Tobacco Use Goal: Inpatient tobacco-use cessation counseling participation Outcome: Progressing Problem: Fall Risk Goal: Fall risk and fall related injury risk are minimized (interventions related to the fall risk can be found in the flowsheet documentation) Outcome: Progressing IT INVESTIGATOR * Luke Conley, PT - 03/22/2021 10:28 AM CST [facility] Physical Therapy Progress Note Patient: Karolina Ramos Med Record Number: [id number] Date of : 1955 Age: [age] year old Face Mask: PT wore mask and eye protection throughout session; Pt wore mask while ambulating in hallway. Discharge Recommendation: Patient will benefit from home health PT. Subjective: tomorrow [birth year] my birthday. Mental Status: Pleasant; A&Ox3; motivated At start of therapy session, patient found in bed and with no alarm. Pain: Patient has No c/o pain at this date Follow-up for pain: No follow-up for pain indicated and patient agreed to proceed with treatment Weight Bearing Status: WBAT Mobility: Rolling: Stand By Assist Supine to Sit: Stand By Assist Sit to Supine: Not tested; pt left in common room in recliner post session Sit to Stand: Minimal assist from EOB; SBA from chair Bed to Chair: not tested Gait: Device:Wheeled Walker Assistance: Minimal assist progressing to SBA Distance: 150feet x2reps; seated rest break after first 150feet Deviations: Increased reliance on B UE's, cue for erect posture and light touch on walker to assistin progressing AD; Decreased foot clearance at times and decreased EVANS; x2 scissor gait/LOB but able to self correct Balance: Static Sitting: good Dynamic sitting: good Static Standing: fair plus with w/w Dynamic Standing: Fair plus with w/w Stairs : Declined at this time; I'm not worried, I have my son. Vitals: No c/o of dizziness Activity Tolerance: Patient's activity tolerance: fair plus Treatment/therapeutic Exercise: sup to sit; sit<>Stand x2reps; gait/endurance training with AD; seated HEP: LAQ, marching and ankle PF EDUCATION: While performing PT, Patient was instructed in:Functional mobility training/weight bearing status, Energy conservation, Safety awareness/fall precaution, Home exercise program and Discharge plan Patient demonstrated Good understanding of instructions given. GOALS: Short Term Goals: Updated this date Patient will perform bed mobility: Mcnairy Patient will transfer sit to/from stand: Mcnairy Patient will transfer bed to/from chair: Mcnairy Patient will ambulate 200 feet with Mcnairy and appropriate AD Longterm Goal(s): Patient to discharge to prior level of function. Update Treatment Plan: Continue treatment per plan of care to improve functional mobility and increase independence. If patient is discharged from the facility, this note serves as a discharge note if further physical therapy visits did not occur. Following therapy session, patient left in recliner in common room with RN, CP, and charge nurse aware. . IT INVESTIGATOR * Beatriz Anguiano OT - 03/22/2021 9:05 AM CST [facility] Medicine [facility] Rehabilitation Occupational Therapy Progress Note Patient: Karolina Ramos Med Record Number: [id number] Date of : 1955 Age: [age] year old Face Mask: OT wore procedural mask and eye protection throughout entire session. Tech: N/A Discharge Recommendation: Patient will benefit from intense 3 hour per day multidisciplinary inpatient therapies. If patient declines, patient will benefit from 26/11 safety supervision/assist at homeand HHOT. Precautions: Spinal Fall Subjective: I am wanting to go home and get more therapy there. At start of therapy session, patient found on toilet with staff. Pain: Patient has 4/10 pain in pelvic bone; pain increases in back with activity Follow-up for pain: No follow-up for pain indicated and patient agreed to proceed with treatment Activities of Daily Living Feeding:B hand to mouth intact Grooming/Bathing: Minimal assist (set-up) to complete oral/facial hygiene sitting in chair, pt requests to complete task supine in bed with HOB elevated 2/2 increased back pain with sitting in chair.Pt SBA to complete hand hygiene standing at sink. Upper Extremity Dressing: Minimal assist to change gowns and fasten/unfasten ties supine in bed Lower Extremity Dressing: not tested; pt educated to figure-4/leg crossover technique to maintain precautions, pt verbalizes understanding and declines completing at this time 2/2 fatigue Toileting/Transfers: Minimal assist to sit>stand from standard toilet with use of B grab bars and w/w; SBA to complete lewis care sitting with good adherence to spinal precautions Mobility: Assist device: Wheeled Walker Rolling: not tested Supine to/from Sit:SBA with long sit and fair maintenance of precautions - pt educated to logroll technique as alternative for bed mobility, pt verbalizes understanding and declines completing at this time with skilled OT 2/2 fatigue; pt states I'll try that this afternoon . Sit to/from Stand: Minimal assist from bedside chair Bed to/from Chair: Stand By Assist Functional Mobility: From bathroom to bedside chair to bed with Stand By Assist Balance: Static Sitting: good Dynamic Sitting: good Static Standing: fair Dynamic Standing: fair Observations: No c/o SOB or dizziness throughout mobility. Activity tolerance: fair Cognitive/Perceptual: A&Ox4. Pt is able to make needs known, demonstrates fair safety awarenessand insight, and follows multi-step commands 100% of the time. Treatment/Therapeutic Exercise: Treatment session this date focused on ADL training Functional transfer training Endurance training Bed mobility Safety awareness EDUCATION: While performing mobility, exercise and self care, Patient was instructed in: Functional mobility training/weight bearing status, Safety awareness/fall precaution, Back surgery education, Discharge plan and Self care training Presented to patient who demonstrates Good understanding of instructions given. Equipment Issued: none Update Treatment Plan/Goals : Pt continues to benefit from skilled OT to improve independence with activities of daily living, increase strength, endurance, range of motion, and decrease pain. Short Term Goals: Patient will perform grooming?With stand by assist Patient will perform lower extremity dressing?With stand by assist Patient will perform toileting?With stand by assist ?? Longterm Goal:Patient to discharge to appropriate next level of inpatient care ?? If patient is discharged from the facility, this note serves as a discharge note if further occupational therapy visits did not occur. Following therapy session, patient left in bed, with call light within reach and with RN, Gustavo aware. IT INVESTIGATOR * Sherri Jaramillo - 03/22/2021 8:39 AM CST New Facility Referral Follow-up Level of Care (SNF/Medicaid NH/Rehab/Longterm Care/LTACH): ARU vs. SNF [facility] rehab can accept the patient pending insurance auth. sent back up SNF referrals. Referrals initiated: Continued Care and Services - Admitted Since 03/18/2021 Destination Service Provider Request Status Selected Services Address Phone Fax Patient Preferred [facility] (ALL LOCATIONS) Pending - Request Sent N/A [address] [facility] [address] [phone] -- Internal Comment last updated by Blanca Rodriguez, SALES ANALYST 03/20/2021 0933 Pt is currently in the ED--please call with any questions--Thanks! Blanca [phone] [facility] Pending - Request Sent N/A [address] [facility] [address] [phone] -- [facility] Pending - Request Sent N/A [address] [facility] [address] -- [facility] Pending - Request Sent N/A [address] [facility] [id number] [phone] -- [facility] Declined not accept admissions N/A [address] [facility] [place] [address] [phone] -- Internal Comment last updated by Blanca Rodriguez, SALES ANALYST 03/20/2021 0934 Pt is currently in the ER--can d/c from the ER if able to accept. Thanks! SUBHASH Rios [phone] If Medicare-3 day qualifying stay verified: n/a monitoring facility responses Comments/changes: Name: Sherri Jaramillo Phone: [phone] IT INVESTIGATOR * Megan Iniguez - 03/21/2021 5:18 PM CST I checked in on pt for an initial visit. 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 She also shared with me about her two sons, grandsons, and her previous marriages. Pt is struggling withfiguring out what the next chapter will look like for her since she can no longer work and she has worked double shifts her whole life, often as a single mother. She was tearful and reflective. Pt asked if I would come back and I told her I would try to follow up tomorrow. She asked for prayer and we prayed together for her well- being and for her to get home to her family and her pets. Pastoral care is available 26/11 - call [phone]. Megan Inigeuz 03/21/2021 5:21 PM IT INVESTIGATOR * Estella Sousa COTA - 03/21/2021 2:30 PM CST [facility] Occupational Therapy Progress Note Patient: Karolina Ramos Med Record Number: [id number] Date of : 1955 Age: [age] year old Face Mask: Therapist wore procedural mask and eye protection during entire treatment session. Tech: n/a Discharge Recommendation: Patient will benefit from intense 3 hour per day multidisciplinary inpatient therapies due to new back pain and weakness resulting in decreased mobility and ADLs. Precautions: Falls Safety Subjective: Patient agreeable. At start of therapy session, patient found in bed and with no alarm. Pain: Patient has 0/10 pain Follow-up for pain: No follow-up for pain indicated and patient agreed to proceed with treatment Activities of Daily Living Feeding: NT Grooming/Bathing: Stand By Assist for washing hands at bathroom sink post BM. (per RN, patient showered herself this AM) Upper Extremity Dressing: declined Lower Extremity Dressing: declined Toileting/Transfers: Stand By Assist with hygiene s/p BM and SBA on/off toliet. Mobility: Assist device: Wheeled Walker and gait belt Rolling: not tested Supine to/from Sit:Stand By Assist Sit to/from Stand: Stand By Assist Bed to/from Chair: declined to sit in recliner Functional Mobility: Room mobility and household distance at SBA and standing rest breaks. Balance: Static Sitting: good Dynamic Sitting: good Static Standing: fair plus Dynamic Standing: fair plus Vitals: (*Assess the 3 levels of oxygen saturations both for room air and 02 unless rest on room air is 88% or less). Rest BP: HR: SpO2 SpO2 Room Air L 02 Ex/Gait/Activity Without 02 BP: HR: SpO2 Room Air Ex/Gait/Activity With 02 BP: HR: SpO2 L 02 Post Activity BP: HR: SpO2 SpO2 L 02 Room Air Observations: no c/o Activity tolerance: fair plus Cognitive/Perceptual: Alert & orient x 4 with basic conversation. Patient did states I don't know why they built this hospital on top of the other one. Patient demonstrated improved safety and good command following. Treatment/Therapeutic Exercise: Treatment session this date focused on ADL training Functional transfer training Bed mobility Safety awareness EDUCATION: While performing mobility and self care, Patient was instructed in:Functional mobility training/weight bearing status, Safety awareness/fall precaution and Self care training Presented to patient who demonstrates Good understanding of instructions given. Equipment Issued: none Update Treatment Plan/Goals : Pt continues to benefit from skilled OT to improve independence with activities of daily living, increase strength, endurance, range of motion and decrease pain. Short Term Goals: Patient will perform grooming With stand by assist Patient will perform lower extremity dressing With stand by assist Patient will perform toileting With stand by assist Television Announcer Goal:Patient to discharge to appropriate next level of inpatient care If patient is discharged from the facility, this note serves as a discharge note if further occupational therapy visits did not occur. Following therapy session, patient left in bed, with call light within reach and with RNDeborah. IT INVESTIGATOR * Feli Lafleur MD - 03/21/2021 12:38 PM CST [facility] INTERNAL MEDICINE PROGRESS NOTE Name: Karolina Ramos Room: 837/837a Days been admitted: 0 03/18/2021 Interval History: - No acute events overnight. She states that her pain is not a 1/10 and well controlled. She is still dismayed that her procedure did not go well and control the pain like it should've and how she isfinding it hard to move and ambulate. - Denies CP, SOB, abdominal pain, nausea/vomiting, headache. Physical Exam: VITALS I's & O's Temp: [97.8 ??F (36.6 ??C)-98.5 ??F (36.9 ??C)] 97.8 ??F (36.6 ??C) Pulse: [66-110] 110 Resp: [15-21] 18 BP: (110-172)/(63-89) 172/89 Weight change: Intake/Output Summary (Last 24 hours) at 03/21/2021 1243 Last data filed at 03/20/2021 1854 Gross per 24 hour Intake 240 ml Output -- Net 240 ml General - NAD, afebrile, noncachectic Chest - CTAB no crackles or wheezes bilaterally CV - RRR no murmurs,radial and DP pulses 2/4, good capillary refill Abdomen - Soft, NT/ND, +BS, no organomegaly Musculoskeletal - Moves all four extremities Labs, Imaging & Micro Reviewed. A1c = 6.4 Assessment and Plan: Karolina Ramos??is a 65 year old??female??w/ PMH Pre-diabetes, Arthitis, psoriasis, ERROL,??s/p slingplacement and Botox therapy,??Gastric bypass surgery (4 years ago), depression, GERD, and HTN that comes to the ED because of severe lower back pain. #Chronic Pain (L4/L5 rupture 20 years ago) #Bilateral??Lower Extremity Radiculopathy s/p recent spinal nerve stimulator Neurosurgery recs: Please prescribe medrol dose pack and have patient follow up with Dr. Hammonds forpreviously scheduled 2 week wound check, signed off Plan: - PT/OT consulted:??recommended acute rehab - Pain Management with medrol pack (taper) and??tylenol 650 mg q6h prn for moderate pain, oxy ??5 mg??prn??for severe pain??with bowel regimen - Pt has a pain contract with Verenice Aguirre NP in 2022 Liza Holloway [address] [place] [address] - Taper steroids after first dose. Pt has an appointment on 03/22. - Gabapentin 600mg??+ Baclofen 10mg + Flexeril PRN #MDD #Anxiety - Buspirone 5mg + Cymbalta 60 bid + Lexapro 10mg #HTN - Continue home Lisinopril-HCTZ #GERD - Protonix 40mg ?? #Psoriasis, chronic and controlled - Sulfasalazine 500mg & Methotrexae 20mg Q7days due on saturday ?? #Pre-diabetes - Encourage weight loss and balanced diet #Substance use #Tabacco use, 15 PPY - Nicotine patch - Cessation counseling #Vitamin D deficiency - Drisdol every Saturday & Calcitriol 0.25mcg QD DVT prophylaxis: Lovenox Access lines: PIV Diet: Regular Ambulation/PT/OT: Ad lg Code: Full Expected discharge: Pending acute rehab placement Hospital Course/CC: Karolina Ramos??is a 65 year old??female??w/ PMH Pre-diabetes, Arthitis, psoriasis, ERROL,??s/p slingplacement and Botox therapy,??Gastric bypass surgery (4 years ago), depression, GERD, and HTN that comes to the ED because of severe lower back pain. Pt had Neurosurgery last at [facility] for a nerve stimulator because of??chronic??back pain. ?She is followed by pain management for over a year, they are the ones who are prescribing her [place]. According to her she was not prescribed any pain meds post surgery. In the ED,??Neuro surgery was consulted and recommended CXR T spine. CBC, PT-INR, and CMP were unremarkable.XR THORACIC SPINE 3VW No acute fracture or subluxation identified. Pain was addressed and PT/OT consulted and recommended acute rehab. This patient will be seen and discussed with the internal medicine team attending, Dr. Lucius Camarillo. Feli Lafleur MD Internal Medicine, PGY-1 03/21/2021 12:43 PM IT INVESTIGATOR Associated attestation - Lucius Camarillo MD - 03/21/2021 5:56 PM CREDIT INVESTIGATOR I have verified the documentation of the resident including all history, exam, and medical decision-making details. I have personally performed a physical exam and have personally reviewed the data to support my medical decision-making as outlined in their note. I agree with their assessment and plan other than any corrections/additions as documented below. Corrections/Additions: - None Date of Service: 03/21/2021 Lucius Camarillo MD * Emily Thompson, PT - 03/21/2021 11:37 AM CST [facility] PhysicalTherapy Progress Note Patient: Karolina Ramos Med Record Number: [id number] Date of : 1955 Age: [age] year old Face Mask: THERAPIST WORE MASK AND GLOVES. PT WORE MASK Tech: NO Discharge Recommendation: Patient will benefit from intense 3 hour per day multidisciplinary inpatient therapies . Subjective: AGREEABLE TO WORK WITH THERAPY Mental Status: ALERT O X 3 At start of therapy session, patient found in bed and with no alarm. Pain: Patient has MOD C/O BACK AND GROIN PAIN Follow-up for pain: No follow-up for pain indicated and patient agreed to proceed with treatment Weight Bearing Status: WBAT Mobility: Rolling: Stand By Assist Supine to Sit:Stand By Assist Sit to Supine: Minimal assist Stand By Assist Sit to Stand:Minimal assist Bed to Chair: not tested TOILET TRANSFER MIN-SBA USING GRAB BARS Gait: Device:Wheeled Walker Assistance: Minimal assist Distance: 80'X 1 15' X 1 Deviations: Balance: Static Sitting: good Dynamic sitting: good Static Standing: PT HELD TO WALKER WITH STANDING Dynamic Standing: not tested Stairs : Vitals: (*Assess the 3 levels of oxygen saturations both for room air and 02 unless rest on room air is 88% or less). Rest BP: HR: Sp02 Sp02 Room Air L O2 Ex/Gait/Activity Without 02 BP: HR: Sp02 Room Air Ex/Gait/Activity With 02 BP: HR: Sp02 L O2 Post Activity BP: HR: Sp02 Sp02 L O2 Room Air Observations: NO C/O DIZZINESS OR SOB Activity Tolerance: Patient's activity tolerance: fair plus Treatment/therapeutic Exercise: PT SEEN FOR MOBILITY/GAIT ABOVE EDUCATION: While performing PT, Patient was instructed in:Functional mobility training/weight bearing status Patient demonstrated Good understanding of instructions given. GOALS: Short Term Goals: Patient will perform bed mobility: Stand By Assist Patient will transfer sit to/from stand: Stand By Assist Patient will transfer bed to/from chair: Stand By Assist Patient will ambulate 50 feet with Minimal assist and appropriate AD Longterm Goal(s): Patient to discharge to appropriate next level of inpatient car Update Treatment Plan: CONT PER PLAN If patient is discharged from the facility, this note serves as a discharge note if further physical therapy visits did not occur. Following therapy session, patient left in bed and with call light within reach . IT INVESTIGATOR * Deborah Goodrich RN - 03/21/2021 10:33 AM CST Problem: Fall Risk Goal: Fall risk and fall related injury risk are minimized (interventions related to the fall risk can be found in the flowsheet documentation) Outcome: Progressing IT INVESTIGATOR * Joelle Shaikh RN - 03/21/2021 1:31 AM CST Problem: Tobacco Use Goal: Inpatient tobacco-use cessation counseling participation Outcome: Progressing Problem: Balance Goal: LTG - Patient will maintain balance to allow for safe mobility Outcome: Progressing Problem: Fall Risk Goal: Fall risk and fall related injury risk are minimized (interventions related to the fall risk can be found in the flowsheet documentation) Outcome: Progressing IT INVESTIGATOR * Gwen Lopez PT - 03/20/2021 4:19 PM CST [facility] Department of Physical Medicine & Rehabilitation Progress Note Patient: Karolina Ramos [facility] Record Number: [id number] Date of : 1955 Age: [age] year old 03/20/21 0940 Missed Visit Missed Visit Refused Patient refused therapy intervention due to Pain Therapist attempted twice this date to see patient for PT session: AM cx: patient refusing 2/2 pain. PM cx: patient JOSE EDUARDO Will continue to follow. IT INVESTIGATOR * Salud Meeks OT - 03/20/2021 9:37 AM CST [facility] Department of Physical Medicine & Rehabilitation Progress Note Patient: Karolina Ramos [facility] Record Number: [id number] Date of : 1955 Age: [age] year old 03/20/21 1200 Missed Visit Missed Visit Refused Patient refused therapy intervention due to Pain;Fatigue;RN Notified of Refusal Pt refused Occupational Therapy 2/2 increased pain and fatigue this date. Pt reports she just transferred to/from [facility] with nursing staff and needs to rest at this time. Pt educated on importance of continued mobility with therapy. Occupational Therapy will continue to follow pt and attempt to see tomorrow to continue POC. IT INVESTIGATOR * Blanca Rodriguez MSW - 03/20/2021 9:27 AM CST Case Management Initial Assessment Case Management screen completed & Welcome Letter given. 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 Yes Anticipated Discharge Date: 03/22/21 Prior Level of Functioning: Pt A and Ox4 and states she her son has assisted her in the home with ADLs. States she ambulates with a walker. PT/OT recommending acute rehab--referrals completed throughEpic. Transportation at Discharge: Ambulance Transportation to MD appointments: Equipment at Home: Equipment At Home: Walker-2 Wheeled;Cane-Straight Additional equipment needed at home but does not have: If no PCP, action taken: Pharmacy benefit: Yes Medication affordability concerns: No Hunger Screening: Playground Worker Referral: Yes If patient requires HHC at discharge, he/she requests: Will continue to follow. For any questions or needs please contact: currently in shank maker Name/Phone number: SUBHASH Aaron ED Playground Worker [phone] IT INVESTIGATOR * Millicent Ingram MD - 03/20/2021 8:38 AM CST Medicine Inpatient Progress Note 03/20/21 8:38 AM Subjective: Hospital Course: Karolina Ramos??is a 65 year old??female??w/ PMH Pre-diabetes, Arthitis, psoriasis, ERROL,??s/p slingplacement and Botox therapy,??Gastric bypass surgery (4 years ago), depression, GERD, and HTN that comes to the ED because of severe lower back pain. Pt had Neurosurgery last at [facility] for a nerve stimulator because of??chronic??back pain. She is followed by pain management for over a year,they are the ones who are prescribing her [place]. According to her she was not prescribed any pain meds post surgery. In the ED,??Neuro surgery was consulted and recommended CXR T spine. CBC, PT-INR, and CMP were unremarkable.XR THORACIC SPINE 3VW No acute fracture or subluxation identified. Pain was addressed and PT/OT consulted and recommended acute rehab . ?? Interval History: Pt states pain has been controled well, she did not need to ask for pain medication Pt agrees to go to an Acute rehab as recommended per PT Pt denies SOB, leg edema, fever, chills, chest pain. ?? OBJECTIVE: Temp: [97.8 ??F (36.6 ??C)] 97.8 ??F (36.6 ??C) Pulse: [59-90] 60 Resp: [10-21] 17 BP: (105-180)/(57-86) 115/57 No intake or output data in the 24 hours ending 03/20/21837 Physical Exam: ?? General: Obese , NAD HEENT: NC, AT, moist oral mucosa Neck: No JVD appreciated Heart: RRR, no m/r/g Lungs: CTA-B, no wheezes, no crackles Abdomen: soft, NT, ND, bowel sounds are present Extremities: no deformity, no cyanosis Neuro: No focal deficits, AOX4 Psych: Appropriate mood and affect Back : tender to palpation in midline lower back , linear insition closed , no drainage Data Review: CBC: Recent Labs Component Name 03/20/2125203/19/2134303/18/2181411/05/1442811/04/14 0528 10/18/14 1314 10/18/14 1314 WBC 10.4 8.7 8.9 10.4 - - 6.6 HGB 12.0 11.7* 11.4* 10.9* 10.9* 12.3 - 13.6 - = values in this interval not displayed. BMP: Recent Labs Component Name 03/20/2125203/19/2134303/18/2181411/05/1442810/18/14 1314 NA 142 137 139 - - POTASSIUM 3.9 4.1 3.5 3.8 3.5 CL 104 102 105 - - CO2 28 27 25 27 32* BUN 10 8 8 7 7 CREATININE 0.65 0.52* 0.56 0.58 0.51 Recent Labs Component Name 03/20/2125203/19/2134303/18/2181411/05/14 0429 10/18/14 1314 CALCIUM 10.9* 10.6* 9.4 8.9 9.5 MAGNESIUM - - - 2.0 - LFT: Recent Labs Component Name 03/18/2181411/05/1442810/18/14 1314 PROT 5.8* - - ALB 2.7* - - TBILI 0.7 - - ALKPHOS 125 156* 174* AST 34 22 43* ALT 22 24 38 Coagulation: Recent Labs Component Name 03/18/21814 11/05/15 0423 11/06/14 0545 11/05/14 0429 11/04/14 0528 PT 14.0 14.0* 12.6* 11.8* 11.5 INR 1.1 1.4* 1.3* 1.2* 1.1 Cardiac markers: No results for input(s): CKMB, TROPONINI, MYOGLOBIN in the last 26520 hours. Microbiology: Microbiology Results (Displays last 21 days for this encounter ONLY) No results found for the last 504 hours. Imaging: XR THORACIC SPINE 3VW Result Date: 03/19/2021 IMPRESSION: No acute fracture or subluxation identified. I, Dr. KATHERINE MAZARIEGOS have personally reviewed and interpreted this examination/study. This report was electronically signed by KATHERINE MAZARIEGOS on 03/19/2021 12:09 PM . Current Medications: ??? 0.9% NaCl 3 mL Intracatheter q8h ??? baclofen 10 mg Oral AT BEDTIME ??? busPIRone 5 mg Oral BID ??? calcitriol 0.25 mcg Oral QDAY ??? DULoxetine 60 mg Oral BID ??? enoxaparin 40 mg Subcutaneous QDAY ??? escitalopram 10 mg Oral QDAY ??? folic acid 1 mg Oral QDAY ??? gabapentin 600 mg Oral TID ??? lisinopril 20 mg Oral QDAY And ??? hydroCHLOROthiazide 25 mg Oral QDAY ??? [START ON 03/21/2021] methotrexate 20 mg Oral q7 days ??? [START ON 2021] methylPREDNISolone 4 mg Oral QDAY BEFORE BREAKFAST ??? [START ON 03/22/2021] methylPREDNISolone 4 mg Oral AT BEDTIME ??? [START ON 03/22/2021] methylPREDNISolone 4 mg Oral QDAY BEFORE BREAKFAST ??? [START ON 03/21/2021] methylPREDNISolone 4 mg Oral AT BEDTIME ??? [START ON 03/21/2021] methylPREDNISolone 4 mg Oral QDAY AFTER LUNCH ??? [START ON 03/21/2021] methylPREDNISolone 4 mg Oral QDAY BEFORE BREAKFAST ??? methylPREDNISolone 4 mg Oral AT BEDTIME ??? methylPREDNISolone 4 mg Oral QDAY AFTER DINNER ??? methylPREDNISolone 4 mg Oral QDAY AFTER LUNCH ??? methylPREDNISolone 4 mg Oral QDAY AFTER DINNER ??? multiple vitamins with iron tablet 1 tablet Oral QDAY ??? nicotine 14 mg Transdermal QDAY ??? simvastatin 10 mg Oral AT BEDTIME ??? sulfaSALAzine 500 mg Oral BID ??? traZODone 200 mg Oral AT BEDTIME ??? vitamin D (ergocalciferol) 50,000 Units Oral q7 days PRN Medications: ??? SALINE LOCK, INSERT AND MAINTAIN AND 0.9% NaCl AND 0.9% NaCl ??? acetaminophen ??? mfkdkhmy-egezobsjb-cewcbrpwtsb ??? cyclobenzaprine ??? docusate sodium ??? oxyCODONE (immediate release) ??? polyethylene glycol 3350 ??? prochlorperazine OR prochlorperazine ASSESSMENT & PLAN: Karolina Morteza Rachel??is a 65 year old??female??w/ PMH Pre-diabetes, Arthitis, psoriasis, ERROL,??s/p slingplacement and Botox therapy,??Gastric bypass surgery (4 years ago), depression, GERD, and HTN that comes to the ED because of severe lower back pain. ?? #Chronic Pain #Bilateral??Lower Extremity Radiculopathy - Chronic neuropathic pain for 20 years s/p L4 and L5 rupture 20 years ago s/p fusion. - - Follows Pain management in [place] - On Liquid [place] ( hydrocodone-acetaminophen) 10-15 ml PRN for 30 days which was prescribed until last and Xtampza ER ( oxycodone ) 80 MG Q12H - nerve stimulator implant on by [facility] on [facility]. - Xray T spine : Spinal stimulator leads superimpose the lower thoracic spine. - PT/OT consulted : recommended acute rehab . - Neurosurgery recs : Please prescribe medrol dose pack and have patient follow up with Dr. Hammonds for previously scheduled 2 week wound check. - Plan - Pain Management with medrol pack ( taper) and tylenol 650 mg q6h prn for moderate pain oxy 5 mg prn??for severe pain with bowel regimen - Pt has a pain contract with Verenice Aguirre NP in 2022 Liza Holloway [facility], [place], [place] [id number] - Taper steroids after first dose. Pt has an appointment on 03/22 - Continue home gabapentin 600mg?? - Continue Baclofen 10mg - Continue Flexeril PRN ? #MDD #Anxiety - Chronic and controlled on home meds. Not actively suicidal. - Plan - Continue Buspirone 5mg - Contunue Cymbalta 60 bid - Continue Lexapro 10mg ? #HTN - Chronic, controlled on home medications - Plan - Continue Home Lisinopril-HCTZ ? #GERD - Chronic, controlled on home meds - Plan - Protonix 40mg ? #Psoriasis - Chronic and controlled. - Home methotrexate once a month and Sulfasalazine 500mg bid - Plan - Continue Sulfasalazine 500mg - Continue Methotrexae 20mg Q7days due on saturday ? #Pre-diabetes - Last HbA1c done 14yrs ago. BMI of 39.84 - Plan - Follow A1c ? #Substance use #Tabacco use - 1/2 pack a day active smoker for about 30 years. - Plan - Nicotine patch - Consider cessation counseling ? #Vitamin D deficiency - As per patient Hx and chart review. No recent Vt D 25oh levels. - Vit D 25OH level 26 , low - Plan - Continue Drisdol every Saturday - Continue Calcitriol 0.25mcg QD ? FEN: replete lytes PRN DVT Ppx:lOVENOX Code Status: Full Code Dispo: Full Consults: ??IP CONSULT TO NEUROSURGERY Millicent Ingram MD Internal Medicine, PGY-1 03/20/21 8:38 AM IT INVESTIGATOR Associated attestation - Reji Heller MD - 03/20/2021 6:14 PM CREDIT INVESTIGATOR I have seen and examined the patient with the resident and I agree with the findings and plan of care as documented by the resident. In addition: Per my verification with Pt's pharmacy, Pt is on liquid norco (7.5/325 mg per 15 ml solution) 10-15ml once a day prn and Xtampza ER (Oxycodone) 18 mg q12H (not 80 mg). Although Pt is on this regimenat home, her pain has been controlled on one 5mg oxycodone a day for the past 2 days along with thethe medrol pack. She has no signs of opioid withdrawal at this time but may consider restarting Xtam pza for signs of withdrawal. Date of Service: 03/20/2021 Reji Heller MD * Millicent Ingram MD - 03/19/2021 3:43 PM CST Medicine Inpatient Progress Note 03/19/21 3:58 PM Subjective: Hospital Course: Karolina Ramos is a 65 year old female w/ PMH Pre-diabetes, Arthitis, psoriasis, ERROL, s/p sling placement and Botox therapy, Gastric bypass surgery (4 years ago), depression, GERD, and HTN that comesto the ED because of severe lower back pain. Pt had Neurosurgery last at [facility] for a nervestimulator because of chronic back pain. She is followed by pain management for over a year, they are the ones who are prescribing her [place]. According to her she was not prescribed any pain meds post surgery. In the ED, Neuro surgery was consulted and recommended CXR T spine. CBC, PT-INR, and CMP were unremarkable.XR THORACIC SPINE 3VW No acute fracture or subluxation identified. Pain was addressed and PT/OT consulted and recommended acute rehab . Interval History: Pt was not in AD , sleeping comfortably. Pt denies SOB, leg edema, fever, chills, chest pain. OBJECTIVE: Temp: [97.8 ??F (36.6 ??C)] 97.8 ??F (36.6 ??C) Pulse: [59-85] 72 Resp: [10-21] 21 BP: (105-153)/(58-87) 105/58 No intake or output data in the 24 hours ending 03/19/21 1558 Physical Exam: General: Obese , NAD HEENT: NC, AT, moist oral mucosa Neck: No JVD appreciated Heart: RRR, no m/r/g Lungs: CTA-B, no wheezes, no crackles Abdomen: soft, NT, ND, bowel sounds are present Extremities: no deformity, no cyanosis Neuro: No focal deficits, AOX4 Psych: Appropriate mood and affect Back : tender to palpation in midline lower back , linear insition closed , no drainage Data Review: CBC: Recent Labs Component Name 03/19/21 03403/18/21 0815 11/05/14 0429 11/04/14 0528 10/18/14 1314 WBC 8.7 8.9 10.4 - 6.6 HGB 11.7* 11.4* 10.9* 10.9* 12.3 13.6 BMP: Recent Labs Component Name 03/19/21 0344 03/18/21 0815 11/05/14 0429 10/18/14 1314 NA 137 139 - - POTASSIUM 4.1 3.5 3.8 3.5 CL 102 105 - - CO2 27 25 27 32* BUN 8 8 7 7 CREATININE 0.52* 0.56 0.58 0.51 Recent Labs Component Name 03/19/2134303/18/2115 11/05/14 0429 10/18/14 1314 CALCIUM 10.6* 9.4 8.9 9.5 MAGNESIUM - - 2.0 - LFT: Recent Labs Component Name 03/18/2115 11/05/14 0429 10/18/14 1314 PROT 5.8* - - ALB 2.7* - - TBILI 0.7 - - ALKPHOS 125 156* 174* AST 34 22 43* ALT 22 24 38 Coagulation: Recent Labs Component Name 03/18/21 0815 11/07/14 0423 11/06/14 0545 11/05/14 0429 11/04/14 0528 PT 14.0 14.0* 12.6* 11.8* 11.5 INR 1.1 1.4* 1.3* 1.2* 1.1 Cardiac markers: No results for input(s): CKMB, TROPONINI, MYOGLOBIN in the last 11088 hours. Microbiology: Microbiology Results (Displays last 21 days for this encounter ONLY) No results found for the last 504 hours. Imaging: XR THORACIC SPINE 3VW Result Date: 03/19/2021 IMPRESSION: No acute fracture or subluxation identified. I, Dr. KATHERINE MAZARIEGOS have personally reviewed and interpreted this examination/study. This report was electronically signed by KATHERINE MAZARIEGOS on 03/19/2021 12:09 PM . Current Medications: ??? 0.9% NaCl 3 mL Intracatheter q8h ??? baclofen 10 mg Oral AT BEDTIME ??? busPIRone 5 mg Oral BID ??? calcitriol 0.25 mcg Oral QDAY ??? DULoxetine 60 mg Oral BID ??? enoxaparin 40 mg Subcutaneous QDAY ??? escitalopram 10 mg Oral QDAY ??? folic acid 1 mg Oral QDAY ??? gabapentin 600 mg Oral TID ??? lisinopril 20 mg Oral QDAY And ??? hydroCHLOROthiazide 25 mg Oral QDAY ??? [START ON 03/21/2021] methotrexate 20 mg Oral q7 days ??? methylPREDNISolone 4 mg Oral QDAY AFTER DINNER ??? [START ON 03/20/2021] methylPREDNISolone 4 mg Oral QDAY BEFORE BREAKFAST ??? [START ON 03/20/2021] methylPREDNISolone 4 mg Oral QDAY AFTER LUNCH ??? [START ON 03/20/2021] methylPREDNISolone 4 mg Oral QDAY AFTER DINNER ??? [START ON 03/20/2021] methylPREDNISolone 4 mg Oral AT BEDTIME ??? [START ON 03/21/2021] methylPREDNISolone 4 mg Oral QDAY BEFORE BREAKFAST ??? [START ON 03/21/2021] methylPREDNISolone 4 mg Oral QDAY AFTER LUNCH ??? [START ON 03/21/2021] methylPREDNISolone 4 mg Oral AT BEDTIME ??? [START ON 03/22/2021] methylPREDNISolone 4 mg Oral QDAY BEFORE BREAKFAST ??? [START ON 03/22/2021] methylPREDNISolone 4 mg Oral AT BEDTIME ??? [START ON 2021] methylPREDNISolone 4 mg Oral QDAY BEFORE BREAKFAST ??? methylPREDNISolone 8 mg Oral AT BEDTIME ??? multiple vitamins with iron tablet 1 tablet Oral QDAY ??? nicotine 14 mg Transdermal QDAY ??? simvastatin 10 mg Oral AT BEDTIME ??? sulfaSALAzine 500 mg Oral BID ??? traZODone 200 mg Oral AT BEDTIME ??? [START ON 03/20/2021] vitamin D (ergocalciferol) 50,000 Units Oral q7 days PRN Medications: ??? SALINE LOCK, INSERT AND MAINTAIN AND 0.9% NaCl AND 0.9% NaCl ??? acetaminophen ??? ddeeksxg-whncfjugb-tizobwpnpyp ??? cyclobenzaprine ??? docusate sodium ??? oxyCODONE (immediate release) ??? polyethylene glycol 3350 ??? prochlorperazine OR prochlorperazine ASSESSMENT & PLAN: Karolina Ramos is a 65 year old female w/ PMH Pre-diabetes, Arthitis, psoriasis, ERROL, s/p sling placement and Botox therapy, Gastric bypass surgery (4 years ago), depression, GERD, and HTN that comesto the ED because of severe lower back pain. #Chronic Pain #Bilateral Lower Extremity Radiculopathy - Chronic neuropathic pain for 20 years s/p L4 and L5 rupture 20 years ago s/p fusion. - - Follows Pain management in [place] - On Liquid [place] which was prescribed until last - nerve stimulator implant on by [facility] on [facility]. - Xray T spine : Spinal stimulator leads superimpose the lower thoracic spine. - PT/OT consulted : recommended acute rehab . - Plan - Pain Management with medrol pack and tylenol 650 mg q6h prn for moderate pain oxy 5 mg prn for severe pain with bowel regimen - Call pain clinic to assess follow up , pt gladys she has a contract with pain clinic in [place] , no answer due to weekend . - Taper steroids after first dose - Continue home gabapentin 600mg - Continue Baclofen 10mg - Continue Flexeril PRN - Neurosurgery consulted ?? #MDD #Anxiety - Chronic and controlled on home meds. Not actively suicidal. - Plan - Continue Buspirone 5mg - Contunue Cymbalta 60 bid - Continue Lexapro 10mg ?? #HTN - Chronic, controlled on home medications - Plan - Continue Home Lisinopril-HCTZ ?? #GERD - Chronic, controlled on home meds - Plan - Protonix 40mg ?? #Psoriasis - Chronic and controlled. - Home methotrexate once a month and Sulfasalazine 500mg bid - Plan - Continue Sulfasalazine 500mg - Continue Methotrexae 20mg Q7days due on saturday #Pre-diabetes - Last HbA1c done 14yrs ago. BMI of 39.84 - Plan - Follow A1c ?? #Substance use #Tabacco use - 1/2 pack a day active smoker for about 30 years. - Plan - Nicotine patch - Consider cessation counseling ?? #Vitamin D deficiency - As per patient Hx and chart review. No recent Vt D 25oh levels. - Plan - Vit D 25OH level - Continue Drisdol every Saturday - Continue Calcitriol 0.25mcg QD ?? FEN: replete lytes PRN DVT Ppx:lOVENOX Code Status: Full Code Dispo: Full Consults: IP CONSULT TO NEUROSURGERY The above assessment and plan will be discussed with the attending. Millicent Ingram MD Internal Medicine, PGY-1 03/19/21 3:58 PM IT INVESTIGATOR Associated attestation - Reji Heller MD - 03/19/2021 6:22 PM CREDIT INVESTIGATOR I have seen and examined the patient with the resident and I agree with the findings and plan of care as documented by the resident. Date of Service: 03/19/2021 Reji Heller MD * Blanca Callahanaresheree Dobbins, PT - 03/19/2021 12:38 PM CST [facility] Physical Medicine and Rehabilitation Physical Therapy Initial Evaluation Note Patient: Karolina Ramos [facility] Record Number: [id number] Date of : 1955 Age: [age] year old Face mask: PT/OT with mask donned throughout therapy session Tech: CO-EVAL w/ OT due to level of skilled assist required unknown Discharge Recommendation: Patient will benefit from intense 3 hour per day multidisciplinary inpatient therapies In addition to the 1:1 evaluation of the patient, additional eval time was spent completing the chart review prior to the assessment, completing the multidisciplinary plan of care and education plan post evaluation and communicating results of the eval to other treatment team members. Nurse and Occupational Therapy contacted regarding patient status and/or discharge plan. Physician Orders: Evaluation and Treat PRECAUTIONS: Fall Activity Level ambulate with assist DIAGNOSIS: Patient Active Problem List: Generalized anxiety disorder Depression Hypertension GERD (gastroesophageal reflux disease) Psoriasis Rheumatoid arthritis MRSA (Methicillin Resistant Staphylococcus Aureus) ERROL (obstructive sleep apnea) Other screening mammogram Pap smear, high-risk (screening, no prior abnormality) S/P TKR (total knee replacement) Sleep apnea Chronic bilateral low back pain Acute midline thoracic back pain Sacral nerve stimulator present Past Medical History: Diagnosis Date ??? Constipation ??? Depression ??? Edema bilateral ankles ??? GERD (gastroesophageal reflux disease) ??? History of diabetes mellitus ??? Hypertension ??? MRSA (methicillin resistant Staphylococcus aureus) post right foot surgery ??? Overweight, obesity and other hyperalimentation ??? Psoriasis right leg, both elbows, scalp ??? Psoriatic arthritis ??? Sleep apnea uses cpap machine SUBJECTIVE: It just really hurts. Pt is agreeable to PT session PATIENT GOALS: To decrease pain Home living: Type of Residence: Private Residence Lives with:: Son Steps to Enter: 5 Ramp: No Handrails: Outdoor Home Structure: One Story Primary Bedroom: First Floor Primary Bathroom: First Floor Bathroom : Walk in Shower Equipment At Home: Walker-2 Wheeled;Cane-Straight Prior Function: Mobility: Ambulate-In Community;Independent;With Assistive Device;Ambulate-In Home Fallen Within 6 Mos: No Have Help at Home?: Yes, there is help at home now How often is assistance provided?: daily PRN Level of Help Sufficient?: Yes Oxygen at Home: No Activity at Home: Active;Driving Vision: No impairment Hearing Exceptions: No impairment Who manages medications?: self At start of therapy session, patient found in bed and with no alarm Pain: Patient has 10/10 pain in back. Pt reports increased pain with mobility. RN made aware. Follow-up for pain: Yes, Informed nurse/physician about pain issue OBJECTIVE: General Appearance: Female, in bed, NAD Precautions: IV's: Peripheral line, external female Catheter and Oxygen Edema: No edema observed BLEs Vitals: Rest BP: 150/91 (107) HR: 82 SpO2 ?? SpO2 97% Room Air ?? L 02 ?? 2L NC Ex/Gait/Activity Without 02 BP: ?? HR: 90 SpO2 88% Room Air RA Ex/Gait/Activity With 02 BP: 167/94 (130) HR: 89 SpO2 94% ?? L 02 2L NC Post Activity BP: 142/75 (92) HR: 77 SpO2 ?? SpO2 92-94% L 02 ?? Room Air 2L NC Observations: VSS on 2L NC. When on RA, she did desat. MENTAL STATUS: Alert and oriented times 3 DIRECTION FOLLOWING: Able to follow single step commands 100 % ROM: BLE WFL AROM STRENGTH: BLE grossly 4- to 4/5 SENSATION: BLE intact light touch sensation FUNCTIONAL MOBILITY Not Tested Not Applicable Independent Stand by Assist Minimal Moderate Maximum Dependent Rolling X Scooting X Supine to/from sit X Sit to/from Stand X Bed to/ chair Observation: No chair available in ED room. Pt stands at EOB with minimal assist with wheeled walker. Pt reports 10/10 pain in back. Becomes tearful. Pt declines further 2/2 pain and pt is assisted back to bed BALANCE: Sitting Static: fair plus Dynamic: fair Standing Static: fair Dynamic: not tested GAIT: Deferred at this time 2/2 pain ACTIVITY TOLERANCE: Patient's activity tolerance: fair TREATMENT/INTERVENTIONS: evaluation, ROM, bed mobility training, transfer training, balance activities and monitoring of vitals EDUCATION: While performing PT, Patient was instructed in:Functional mobility training/weight bearing status and Safety awareness/fall precaution Patient demonstrated Fair understanding of instructions given. INFORMED CONSENT TO TREATMENT: Plan of care including recommended therapy, goals and frequency, discussed with patient who understands and agrees to proceed. ASSESSMENT: Patient's functional performance presently limited due to: pain, medical condition, strength, endurance, bed mobility, transfers, gait, safety awareness and balance and Patient would benefit from additional Physical Therapy to achieve the following functional goals to enhance independence. Short Term Goals: Patient will perform bed mobility: Stand By Assist Patient will transfer sit to/from stand: Stand By Assist Patient will transfer bed to/from chair: Stand By Assist Patient will ambulate 50 feet with Minimal assist and appropriate AD Longterm Goal(s): Patient to discharge to appropriate next level of inpatient care Equipment Issued: gait belt Plan: If patient is discharged from the facility, this note serves as a discharge summary if further physical therapy visits did not occur. Following therapy session, patient left in bed, with call light within reach and with RN aware. IT INVESTIGATOR * Nancy Knight OT - 03/19/2021 8:40 AM CST [facility] Physical Medicine and Rehabilitation Occupational Therapy Initial Evaluation Note Patient: Karolina Ramos Med Record Number: [id number] Date of : 1955 Age: [age] year old Face Mask: YES (N95 + EYE PROTECTION + GLOVES) Tech: NO Discharge Recommendation: Patient will benefit from intense 3 hour per day multidisciplinary inpatient therapies due to new back pain and weakness (pt was living alone and independent) In addition to the 1:1 evaluation of the patient, additional eval time was spent completing the chart review prior to the assessment, completing the multidisciplinary plan of care and education plan post evaluation and communicating results of the eval to other treatment team members. Plan: ADL training Functional transfer training Endurance training Bed mobility Energy conservationSafety awareness HEP training Physician Orders: Evaluation and Treat Precautions: FALLS SAFETY DIAGNOSIS: Patient Active Problem List: Generalized anxiety disorder Depression Hypertension GERD (gastroesophageal reflux disease) Psoriasis Rheumatoid arthritis MRSA (Methicillin Resistant Staphylococcus Aureus) ERROL (obstructive sleep apnea) Other screening mammogram Pap smear, high-risk (screening, no prior abnormality) S/P TKR (total knee replacement) Sleep apnea Chronic bilateral low back pain Acute midline thoracic back pain Sacral nerve stimulator present Past Medical History: Diagnosis Date ??? Constipation ??? Depression ??? Edema bilateral ankles ??? GERD (gastroesophageal reflux disease) ??? History of diabetes mellitus ??? Hypertension ??? MRSA (methicillin resistant Staphylococcus aureus) post right foot surgery ??? Overweight, obesity and other hyperalimentation ??? Psoriasis right leg, both elbows, scalp ??? Psoriatic arthritis ??? Sleep apnea uses cpap machine SUBJECTIVE: I valentín arora PATIENT GOALS: I want the pain to be better Home living: Type of Residence: Private Residence Lives with:: Son Steps to Enter: 5 Ramp: No Handrails: Outdoor Home Structure: One Story Primary Bedroom: First Floor Primary Bathroom: First Floor Bathroom : Walk in Shower Equipment At Home: Walker-2 Wheeled;Cane-Straight Prior Function: Mobility: Ambulate-In Community;Independent;With Assistive Device;Ambulate-In Home Fallen Within 6 Mos: No Have Help at Home?: Yes, there is help at home now How often is assistance provided?: daily PRN Level of Help Sufficient?: Yes Oxygen at Home: No Activity at Home: Active;Driving Vision: No impairment Hearing Exceptions: No impairment Who manages medications?: self At start of therapy session, patient found in bed and with no alarm. Pain: Patient has 10/10 pain in back Follow-up for pain: Yes, Informed nurse/physician about pain issue OBJECTIVE: General Appearance: 65 yo CF in bed in NAD Precautions: IV's: Peripheral line, Catheter and Oxygen (purewick) Edema: None noted Vitals: (*Assess the 3 levels of oxygen saturations both for room air and 02 unless rest on room air is 88% or less). Rest BP: 150/91 (107) HR: 82 SpO2 SpO2 97% Room Air L 02 2L NC Ex/Gait/Activity Without 02 BP: HR: 90 SpO2 88% Room Air RA Ex/Gait/Activity With 02 BP: 167/94 (130) HR: 89 SpO2 94% L 02 2L NC Post Activity BP: 142/75 (92) HR: 77 SpO2 SpO2 92-94% L 02 Room Air 2L NC Observations: VSS on 2L NC. When on RA, she did desat. Cognitive: A&Ox4; followed 100% of commands Perceptual: WFL Upper extremity range of motion: WFL B UEs but unable to lift B UEs above shoulders at the same time due to pain Upper extremity strength: See above; grossly 4-/5 Tone: Normal Coordination: Normal Sensation: Normal Patient's activity tolerance: fair Comments: FUNCTIONAL MOBILITY Not tested Independent Stand by Assist Minimal Moderate Maximum Dependent Rolling X Supine to/from sit X Sit to/from Standing X Bed to/from chair X Functional mobility of ambulation to sink/bathroom with: MIN assist using WW Balance: Static Sitting: good minus Dynamic Sitting: fair plus Static Standing: fair Dynamic Standing: fair Activities of Daily Living Feeding:NT Grooming/Bathing: not tested Upper Extremity Dressing: Minimal assist Lower Extremity Dressing: Moderate assist Toileting/Transfers: not tested Splint Issued/Checked: none TREATMENT / EDUCATION / EVALUATION: Purpose of Occupational Therapy evaluation explained. While performing mobility, exercise and self care, Patient was instructed in: Functional mobility training/weight bearing status, Energy conservation, Pulmonary education, Safety awareness/fall precaution, Home exercise program, Pursed lip breathing, Back surgery education, Discharge plan and Self care training Presented to patient who demonstrates Good understanding of instructions given. INFORMED CONSENT TO TREATMENT: Plan of care including recommended therapy, goals and frequency, as well as potential risks and benefits of treatment/assessment explained to patient. Patient understands and agrees to proceed. ASSESSMENT: Functional performance limited due to: limited activities of daily living, pain, decreased mobility, endurance and decreased safety awareness Nurse and PT contacted regarding patient status and/or discharge plan. Short Term Goals: Patient will perform grooming With stand by assist Patient will perform lower extremity dressing With stand by assist Patient will perform toileting With stand by assist Longterm Goal: Patient to discharge to appropriate next level of inpatient care If patient is discharged from the facility, this note serves as a discharge summary if further occupational therapy visits did not occur. Following therapy session, patient left in bed, with call light within reach, with RN, fully aware and with RN/CP rehab cues written on white board. IT INVESTIGATOR * Scott Dover MD - 03/18/2021 8:49 PM CST Xray T spine reviewed. Spinal cord stimulator in place in appropriate location. Patient no longer requires inpatient neurosurgical care. Please prescribe medrol dose pack and have patient follow up with Dr. Hammonds for previously scheduled 2 week wound check. Scott Dover MD 03/18/2021 8:53 PM IT INVESTIGATOR documented in this encounter H&P Notes * Bobo Garcia MD - 03/18/2021 9:32 PM CST INTERNAL MEDICINE HISTORY AND PHYSICAL Admission Date: 03/18/2021 Patient: Karolina Ramos (65 year old female) Code Status: Full Code Chief Complaint: Chief Complaint Patient presents with ??? Pain Back Pt BIBEMS for severe lower back pain. Pt had nerve stimul[place] last [place] has had unresolved pain. Hx of L4-L5 fusion. 4mg morphine given in route by EMS, pain 02/12. Pt was referred to come to this hospital for specialty care. AOx4, appears calm. History of Present Illness: History was obtained from patient and medical chart. Karolina Ramos is a 65 year old female w/ PMH Pre-diabetes, Arthitis, psoriasis, ERROL, s/p sling placement and Botox therapy, Gastric bypass surgery (4 years ago), depression, GERD, and HTN that comesto the ED because of severe lower back pain. Pt had Neurosurgery last at [facility] for a nervestimulator because of chronic back pain. Pt says that her back pain has been worse than before the surgery. She is also complaining about pain in both of her groins that has started post surgery bilateraly. She states that her pain was 10/10 before she was given morphine by the ems, but now is 5/10. The pain is shooting, burning and sharp down her lower back and both groins. She has been having this back pain since over 20 years ago the started when she had rupture of L4 and L5 for which she was treated with fusion of both vertebrae. Patient denies post- surgical trauma. Pt had been taking liquid Houston at home which caused pain relief (her routine pain med). She is followed by pain management for over a year, they are the ones who are prescribing her Houston. According to her she was not prescribed any pain meds post surgery. Denies chest pain, abdominal pain, fever, chills, nausea, diarrhea, and constipation. Pt smokes 1/2 a pack a day for 32 yeas. Pt does not drink alcohol and does notuse illicit substances. Pt is disabled since 2012 and does not work. She lives by herself, she has not needed help with ADLs. FMHx of cancer (unspecified) in her mother and diabetes, HTN and heart problems in her mother, sister with cancer (gastric) and COPD. In the ED, Neuro surgery was consulted and recommended CXR T spine. CBC, PT-INR, and CMP were unremarkable. Past Medical History: Past Medical History: Diagnosis Date ??? Constipation ??? Depression ??? Edema bilateral ankles ??? GERD (gastroesophageal reflux disease) ??? History of diabetes mellitus ??? Hypertension ??? MRSA (methicillin resistant Staphylococcus aureus) post right foot surgery ??? Overweight, obesity and other hyperalimentation ??? Psoriasis right leg, both elbows, scalp ??? Psoriatic arthritis ??? Sleep apnea uses cpap machine Past Surgical History: Past Surgical History: Procedure Laterality Date ??? [...] bilat ??? TUBAL LIGATION, LAPAROSCOPIC 1976 Family History: Family History Problem Relation Name Age of Onset ??? Heart Failure Mother ??? Diabetes Mother ??? Heart Failure Father ??? Arthritis - Rheumatoid Sister Inna ??? Other Sister Inna COPD, SLE Social History: Social History Socioeconomic History ??? Marital status: Spouse name: Not on file ??? Number of children: Not on file ??? Years of education: Not on file ??? Highest education level: Not on file Occupational History ??? 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 Smoking status: Current Every Day Smoker Packs/day: 0.50 Years: 19.00 Pack years: 9.50 Types: Cigarettes Last attempt to quit: 02/17/2013 Years since quittin.0 ??? Smokeless tobacco: Never Used ??? Tobacco comment: a couple cigarettes a day Vaping Use ??? Vaping Use: Never [...] on file Housing Stability: Not on file Allergies: Allergies Allergen Reactions ??? Penicillins Shortness of Breath, Rash and Unknown ??? Betadine [Povidone Iodine] Rash ??? Metformin Nausea and/or Vomiting Home Medications: No current facility-administered medications on file prior to encounter. Current Outpatient Medications on File Prior to Encounter Medication Sig Dispense Refill ??? albuterol HFA (PROVENTIL;VENTOLIN;PROAIR) 108 (90 Base) MCG/ACT inhaler (Patient not taking: Reported on 03/14/2021) ??? baclofen (LIORESAL) 10 MG tablet 10 mg at bedtime ??? busPIRone (BUSPAR) 5 MG tablet ??? calcitriol (ROCALTROL) 0.25 MCG capsule Take 0.25 mcg by mouth once daily ??? clobetasol (TEMOVATE) 0.05 % gel Apply to affected area as needed ??? COLACE 100 MG CAPS Take 100 mg by mouth once daily as needed ??? cyclobenzaprine (FLEXERIL) 10 MG tablet Take 1 (one) tablet by mouth 3 times daily as needed for Muscle Spasms 21 tablet 0 ??? DULoxetine (CYMBALTA) 60 MG capsule Take 60 mg by mouth 2 times daily 2 ??? Ergocalciferol (VITAMIN D2) 2000 UNITS TABS Take 50,000 Units by mouth every 7 days ??? escitalopram (LEXAPRO) 10 MG tablet 10 mg once daily ??? fluticasone propionate (FLONASE) 50 MCG/ACT nasal spray as needed (Patient not taking: Reportedon 03/16/2021) ??? folic acid (FOLVITE) 1 MG tablet Take 1 mg by mouth once daily ??? gabapentin (NEURONTIN) 600 MG tablet 600 mg 3 times daily ??? hydrocodone-acetaminophen 7.5-325 MG/15ML solution Take 15 mL by mouth every 4 hours as needed 473 mL 5 ??? lisinopril-hydroCHLOROthiazide (PRINZIDE; ZESTORETIC) 20-25 MG tablet 1 tablet ??? lovastatin (MEVACOR) 20 MG tablet Take 20 mg by mouth at bedtime 3 ??? methotrexate 2.5 MG tablet Take 20 mg by mouth every 7 days Takes 5 tablets Reasons: Psoriasis associated with Arthritis ??? multivitamin with iron (ONE A DAY WITH IRON) tablet Take 1 Tab by mouth once daily ??? NARCAN 4 MG/0.1ML nasal spray SYBIL REP ALN (Patient not taking: Reported on 03/14/2021) ??? omeprazole (PRILOSEC) 20 MG capsule 20 mg at bedtime ??? predniSONE (DELTASONE) 5 MG tablet 5 mg once daily ??? sulfaSALAzine (AZULFIDINE) 500 MG tablet 500 mg 2 times daily ??? TALTZ 80 MG/ML auto-injector pen 1 Dose ??? traZODone (DESYREL) 100 MG tablet 200 mg at bedtime ??? XTAMPZA ER 13.5 MG capsule 18 mg Current Medications: Scheduled: ??? 0.9% NaCl 3 mL Intracatheter q8h ??? [START ON 03/19/2021] enoxaparin 40 mg Subcutaneous QDAY Continuous: PRN: ??? SALINE LOCK, INSERT AND MAINTAIN AND 0.9% NaCl AND 0.9% NaCl ??? [id number] ??? oxyCODONE (immediate release) ??? polyethylene glycol 3350 ??? prochlorperazine OR prochlorperazine Review of Systems: (positives are bolded) CONSTITUTIONAL: fatigue, weight loss, fevers, chills, sweats, malaise, anorexia EYES: visual blurring, double vision, eye pain ENT: hearing loss, tinnitus, vertigo, epistaxis, bleeding gums RESP: shortness of breath, dyspnea on exertion, cough, pleuritic chest pain, wheezing CV: palpitations, syncope, chest pain, edema, orthopnea, PND GI: dysphagia, nausea, vomiting, abdominal pain, constipation, diarrhea : incontinence, dysuria, frequency, hematuria, kidney stone MSK: joint stiffness, swelling, pain, no hematoma, lesions, or tenderness to palpation at groins bilaterally NEURO: headaches, syncope, seizures, gait problems, tremor, balance, memory SKIN: rash, itching, bruising, lumps or bumps PSYCH: depressed mood, anxiety, suicidal or homicidal ideation ENDO: cold or heat intolerance, polyphagia, polydipsia, polyuria HEME: anemia, bleeding disorder, abnormal bruising, blood clots Vital Signs: Temp: [98.1 ??F (36.7 ??C)] 98.1 ??F (36.7 ??C) Pulse: [66-93] 70 Resp: [19-25] 20 BP: (127-163)/(59-99) 145/83 Physical Exam: General: obese, alert and oriented, in pain, pleasant and cooperative Head: normocephalic, atraumatic Eyes: conjunctivae clear, extraocular muscles intact Mouth/Throat: oropharynx clear with no lesions, moist mucous membranes Neck: no jugular venous distension, no cervical lympadenopathy, good range of motion CV: regular rate and rhythm, no murmurs appreciated Resp: clear to auscultation bilaterally, no wheezes or crackles heard Abd: soft, nontender, nondistended, normoactive bowel sounds Extremities: no lower extremity edema, no cyanosis, Skin: skin color and turgor normal, no rashes or lesions noted Neuro: moving all extremities well, no focal deficits, 10/10 pain in midline lower back Lab Results: Labs have been personally reviewed and are remarkable for the following: CBC: Recent Labs Component Name 03/18/2181411/05/1442811/04/14 0528 10/18/14 1314 10/18/14 1314 WBC 8.9 10.4 - - 6.6 HGB 11.4* 10.9* 10.9* 12.3 - 13.6 HCT 35.6 33.1* 33.1* 37.4 - 41.5 MCV 90.1 89.7 - - 90.6 - = values in this interval not displayed. Coagulation Panel: Recent Labs Component Name 03/18/2181411/07/1442211/06/14 0545 PT 14.0 14.0* 12.6* INR 1.1 1.4* 1.3* BMP: Recent Labs Component Name 03/18/2181411/05/1442810/18/14 1314 NA 139 - - POTASSIUM 3.5 3.8 3.5 CL 105 - - CO2 25 27 32* BUN 8 7 7 CREATININE 0.56 0.58 0.51 CALCIUM 9.4 8.9 9.5 Recent Labs Component Name 11/05/14428 MAGNESIUM 2.0 No results for input(s): PHOS in the last 42138 hours. Hepatic Panel: Recent Labs Component Name 03/18/2181411/05/1442810/18/14 1314 AST 34 22 43* ALT 22 24 38 ALKPHOS 125 156* 174* TBILI 0.7 - - ALB 2.7* - - ABG: No results for input(s): PH, PCO2, PO2 in the last 02435 hours. Invalid input(s): BICAR3 Amylase/Lipase: Invalid input(s): AMYL, LIPA Thyroid Studies: Recent Labs Component Name 11/05/14428 TSH 1.75 Cardiac Enzymes: No results for input(s): CKTOTAL, CKMB, TROPONINI in the last 89209 hours. Invalid input(s): CKMBINDEX Lipid Panel: No results for input(s): LDLCALC, HDL in the last 38876 hours. UA: Microbiology: Microbiology Results (Displays last 21 days for this encounter ONLY) No results found for the last 504 hours. Imaging: Imaging has been personally reviewed and is summarized as below: CXR T Spine (03/18/2021): NAOI Assessment/Plan: #Chronic Pain #Bilateral Lower Extremity Radiculopathy A: Chronic neuropathic pain for 20 years s/p L4 and L5 rupture 20 years ago s/p fusion. Follows Pain management. On Liquid [place] which was prescribed until last . Had nerve stimulator implanton by [facility] on [facility]. 02/12 pain in midline on lower back. P: - Pain Management with medrol pack and oxy prn with bowel regimen - Taper steroids after first dose - Continue home gabapentin 600mg - Continue Baclofen 10mg - Continue Flexeril PRN - Will order Xray T spine to evaluate [facility] #[facility]D #Anxiety Chronic and controlled on home meds. Not actively suicidal. P: - Continue Buspirone 5mg - Contunue Cymbalta 60 bid - Continue Lexapro 10mg #HTN A: Chronic, controlled on home medications P: - Continue Home Lisinopril-HCTZ #GERD A: Chronic, controlled on home meds P: - Protonix 40mg #Psoriasis A: Chronic and controlled. Patient uses methotrexate once a month and Sulfasalazine 500mg bid P: - Continue Sulfasalazine 500mg - Continue Methotrexae 20mg Q7days due on saturday #Pre-diabetes A: Last HbA1c done 14yrs ago. BMI of 39.84 P: - Will repeat A1c - Consider OPT PCP f/u for medication optimization if HbA1c above 6.4% #Substance use #Tabacco use A: 1/2 pack a day active smoker for about 30 years. P: - Nicotine patch - Consider cessation counseling #Vitamin D deficiency A: As per patient Hx and chart review. No recent Vt D 25oh levels. P: - Vit D 25OH level - Continue Drisdol every Saturday - Continue Calcitriol 0.25mcg QD FEN - Fluids: None - Electrolytes: Monitor and replete as necessary to keep Mg >2, Phos >3, K >4. - Nutrition: Regular Diet: DIET REGULAR DVT ppx: Lovenox Consults: IP CONSULT TO NEUROSURGERY Code Status: Full Code Disposition: inpatient monitoring The above assessment and plan will be discussed with the attending. Bobo Garcia MD PGY-1, Internal Medicine 03/18/2021 9:32 PM IT INVESTIGATOR Associated attestation - Reji Heller MD - 03/19/2021 5:21 PM CREDIT INVESTIGATOR I have seen and examined the patient with the resident and I agree with the findings and plan of care as documented by the resident. Date of Service: 03/19/2021 Reji Heller MD documented in this encounter Consult Notes * Scott Dover MD - 03/18/2021 7:04 PM CST Neurosurgery Consult Note Name: Karolina Ramos : 1955 Date of Admission:03/18/2021 Date of Consult:03/18/2021 7:04 PM Chief Complaint (CC): Back pain HISTORY OF PRESENT ILLNESS (HPI): Ms. Ramos??is a very pleasant 65-year-old lady with a very complex history from the spinal??standpoint. ??The patient had a previous laminectomy in the lower lumbar spine, remaining with chronic axial low back pain as well as right leg pain. ??She also has a history of fusion of her right ankle. ??The patient has already tried an??extensive conservative treatment with physical therapy and injection without significant improvement ??of her pain. ??Fortunately, the patient had a recent trial with a dorsal column stimulation system with an [employer] device and presented with significant improvement of her pain. ??Therefore, she had a spinal cord stimulator placed on 03/[address] Hammonds. Patient had no immediate post operative symptoms. Then, she developed RLE radiculopathy over the past dayradiating down to her R foot. Only endorses pain, no numbness, tingling, weakness. No loss of bowelor bladder control. Past Medical History: Diagnosis Date ??? Constipation ??? Depression ??? Edema bilateral ankles ??? GERD (gastroesophageal reflux disease) ??? History of diabetes mellitus ??? Hypertension ??? MRSA (methicillin resistant Staphylococcus aureus) post right foot surgery ??? Overweight, obesity and other hyperalimentation ??? Psoriasis right leg, both elbows, scalp ??? Psoriatic arthritis ??? Sleep apnea uses cpap machine Past Surgical History: Procedure Laterality Date ??? ANKLE FRACTURE TX 1999 right ??? ANKLE FRACTURE TX 2000 hardware removed ??? Arthroplasty 2006 left ??? Arthroplasty 2008 right knee,2008 ??? Back Surgery 1996 L4L5 ??? Breast Reduction 1994 bilat ??? Bunionectomy 2007 right ??? Bunionectomy 1993 left ??? Hysterectomy 1989 vaginal ??? KNEE ARTHROPLASTY, REVISION Right 11/03/2014 Right; ARTHROPLASTY TOTAL KNEE REVISION HINGED KNEE ??? Knee Arthroscopy 1995 left ??? Knee Arthroscopy 1996 right ??? Salpingo-oophorectomy 2004 bilat ??? TUBAL LIGATION, LAPAROSCOPIC 1976 Allergies Allergen Reactions ??? Penicillins Shortness of Breath, Rash and Unknown ??? Betadine [Povidone Iodine] Rash ??? Metformin Nausea and/or Vomiting Current Medications albuterol HFA (PROVENTIL;VENTOLIN;PROAIR) 108 (90 Base) MCG/ACT inhaler baclofen (LIORESAL) 10 MG tablet 10 mg at bedtime busPIRone (BUSPAR) 5 MG tablet calcitriol (ROCALTROL) 0.25 MCG capsule Take 0.25 mcg by mouth once daily clobetasol (TEMOVATE) 0.05 % gel Apply to affected area as needed COLACE 100 MG CAPS Take 100 mg by mouth once daily as needed cyclobenzaprine (FLEXERIL) 10 MG tablet Take 1 (one) tablet by mouth 3 times daily as needed for Muscle Spasms DULoxetine (CYMBALTA) 60 MG capsule Take 60 mg by mouth 2 times daily Ergocalciferol (VITAMIN D2) 2000 UNITS TABS Take 50,000 Units by mouth every 7 days escitalopram (LEXAPRO) 10 MG tablet 10 mg once daily fluticasone propionate (FLONASE) 50 MCG/ACT nasal spray as needed folic acid (FOLVITE) 1 MG tablet Take 1 mg by mouth once daily gabapentin (NEURONTIN) 600 MG tablet 600 mg 3 times daily hydrocodone-acetaminophen 7.5-325 MG/15ML solution Take 15 mL by mouth every 4 hours as needed lisinopril-hydroCHLOROthiazide (PRINZIDE; ZESTORETIC) 20-25 MG tablet 1 tablet lovastatin (MEVACOR) 20 MG tablet Take 20 mg by mouth at bedtime methotrexate 2.5 MG tablet Take 20 mg by mouth every 7 days Takes 5 tablets Reasons: Psoriasis associated with Arthritis multivitamin with iron (ONE A DAY WITH IRON) tablet Take 1 Tab by mouth once daily NARCAN 4 MG/0.1ML nasal spray SYBIL REP ALN omeprazole (PRILOSEC) 20 MG capsule 20 mg at bedtime predniSONE (DELTASONE) 5 MG tablet 5 mg once daily sulfaSALAzine (AZULFIDINE) 500 MG tablet 500 mg 2 times daily TALTZ 80 MG/ML auto-injector pen 1 Dose traZODone (DESYREL) 100 MG tablet 200 mg at bedtime XTAMPZA ER 13.5 MG capsule 18 mg Current Facility-Administered Medications Medication ??? HYDROmorphone (Dilaudid) injection 0.4 mg Current Outpatient Medications Medication ??? albuterol HFA (PROVENTIL;VENTOLIN;PROAIR) 108 (90 Base) MCG/ACT inhaler ??? baclofen (LIORESAL) 10 MG tablet ??? busPIRone (BUSPAR) 5 MG tablet ??? calcitriol (ROCALTROL) 0.25 MCG capsule ??? clobetasol (TEMOVATE) 0.05 % gel ??? COLACE 100 MG CAPS ??? cyclobenzaprine (FLEXERIL) 10 MG tablet ??? DULoxetine (CYMBALTA) 60 MG capsule ??? Ergocalciferol (VITAMIN D2) 2000 UNITS TABS ??? escitalopram (LEXAPRO) 10 MG tablet ??? fluticasone propionate (FLONASE) 50 MCG/ACT nasal spray ??? folic acid (FOLVITE) 1 MG tablet ??? gabapentin (NEURONTIN) 600 MG tablet ??? hydrocodone-acetaminophen 7.5-325 MG/15ML solution ??? lisinopril-hydroCHLOROthiazide (PRINZIDE; ZESTORETIC) 20-25 MG tablet ??? lovastatin (MEVACOR) 20 MG tablet ??? methotrexate 2.5 MG tablet ??? multivitamin with iron (ONE A DAY WITH IRON) tablet ??? NARCAN 4 MG/0.1ML nasal spray ??? omeprazole (PRILOSEC) 20 MG capsule ??? predniSONE (DELTASONE) 5 MG tablet ??? sulfaSALAzine (AZULFIDINE) 500 MG tablet ??? TALTZ 80 MG/ML auto-injector pen ??? traZODone (DESYREL) 100 MG tablet ??? XTAMPZA ER 13.5 MG capsule Social History Tobacco Use ??? Smoking status: Current Every Day Smoker Packs/day: 0.50 Years: 19.00 Pack years: 9.50 Types: Cigarettes Last attempt to quit: 02/17/2013 Years since quittin.0 ??? Smokeless tobacco: Never Used ??? Tobacco comment: a couple cigarettes a day Substance Use Topics ??? Alcohol use: No Comment: occasional Family History Problem Relation Name Age of Onset ??? Heart Failure Mother ??? Diabetes Mother ??? Heart Failure Father ??? Arthritis - Rheumatoid Sister Inna ??? Other Sister Inna COPD, SLE REVIEW OF SYSTEMS Deferred PHYSICAL EXAM BP 149/59 Pulse 71 Temp 98.1 ??F (36.7 ??C) (Temporal) Resp 23 Ht 1.727 m (5' 8 ) Wt 118.8 kg (262 lb) SpO2 95% BMI 39.84 kg/m2 General: in pain Neuro: awake, oriented to name, hospital, and date, ou=r, EOMI, face symmetric, tongue midline, no drift, full strength in all extremities, wound [facility] Recent Labs Component Name 03/18/21 0815 WBC 8.9 HGB 11.4* HCT 35.6 PLTCOUNT 139* Recent Labs Component Name 03/18/2115 11/05/14 0429 NA 139 - POTASSIUM 3.5 3.8 CHLORIDE - 106 CO2 25 27 BUN 8 7 CREATININE 0.56 0.58 GLUCOSE 126* 95 Recent Labs Component Name 03/18/21 0815 INR 1.1 TEG: RADIOLOGY No new imaging Assessment: 65 year old female s/p multiple spine surgeries, most recently spinal cord stimulator on 03/16 withincreased RLE radiculopathy. Neurologically intact. Plan: - Obtain xray T spine to evaluate placement of spinal cord stim - Activity as tolerated - Diet as tolerated - Call neurosurgery with any change in neurological exam Case discussed with Dr. Mckayla Dover MD 03/18/2021 7:04 PM IT INVESTIGATOR documented in this encounter ED Notes * Ashley Moreno RN - 03/20/2021 3:43 PM CST Pt report given to TESHA Lizama. All questions answered and concerns addressed at this time. IT INVESTIGATOR * Ashley Moreno RN - 03/20/2021 3:30 PM CST PT resting quietly with eyes open. NAD. Skin warm to touch. Respirations even and unlabored. No needs voiced. Call light in reach, bed low and locked. Belongings in reach. VSS. IT INVESTIGATOR * Ashley Moreno RN - 03/20/2021 1:05 PM CST PT resting quietly with eyes open. NAD. Skin warm to touch. Respirations even and unlabored. No needs voiced. Call light in reach, bed low and locked. Belongings in reach. VSS. IT INVESTIGATOR * Ashley Moreno RN - 03/20/2021 12:06 PM CST PT resting quietly with eyes closed. NAD. Skin warm to touch. Respirations even and unlabored on 3LNC. No needs voiced. Call light in reach, bed low and locked. Belongings in reach. VSS. IT INVESTIGATOR * Ashley Moreno RN - 03/20/2021 11:01 AM CST PT resting quietly with eyes closed. NAD. Skin warm to touch. Respirations even and unlabored on 3LNC. No needs voiced. Call light in reach, bed low and locked. Belongings in reach. VSS. IT INVESTIGATOR * Ashley Moreno RN - 03/20/2021 10:00 AM CST PT resting quietly with eyes closed. NAD. Skin warm to touch. Respirations even and unlabored on 3LNC. No needs voiced. Call light in reach, bed low and locked. Belongings in reach. VSS. IT INVESTIGATOR * Ashley Moreno RN - 03/20/2021 9:15 AM CST Pt to bed from the commode with max assist with this Jeannine PARKINSON and Bessie. PT now resting in bed with eyes open. NAD. Skin warm to touch. Respirations even and unlabored on 3L NC. No needs voiced. Call light in reach, bed low and locked. Belongings in reach. VSS. IT INVESTIGATOR * Ashley Moreno RN - 03/20/2021 9:00 AM CST Pt to bedside commode with max assist with this Alma PARKINSON. Bedding changed at this timeand new [employer]wick prepped. IT INVESTIGATOR * Ashley Moreno RN - 03/20/2021 8:00 AM CST PT resting quietly with eyes open. NAD. Skin warm to touch. Respirations even and unlabored on 3L NC. No needs voiced. Call light in reach, bed low and locked. Belongings in reach. VSS. IT INVESTIGATOR * Bhavani Medrano - 03/19/2021 1:26 AM CST Pt provided with warm blanket, denies needing anything else at this time. IT INVESTIGATOR * Bhavani Medrano - 03/18/2021 11:51 PM CST Pt provided with turkey sandwich, jello, and ice water. Pt denies needing anything at this time. IT INVESTIGATOR * Bhavani Medrano - 03/18/2021 11:36 PM CST Pt incontinent of urine. Pt cleaned up and repositioned. Purewick placed. Pt denies needing anything else at this time. IT INVESTIGATOR * Bhavani Medrano - 03/18/2021 11:00 PM CST Pt placed on 2L O2 NC d/t SPO2 at 89% while sleeping. Pt SPO2 now at 98% while on 2L O2 NC. IT INVESTIGATOR * Erika Campo RN - 03/18/2021 7:48 PM CST Patient report given to TESHA Beckham. Answered all questions, no concerns from nurse. Will turnover care at this time. IT INVESTIGATOR * Javier Lambert MD - 03/18/2021 2:47 PM CST Patient signed out to me by Dr. Mancia at 2:00 PM Chief Complaint: Chief Complaint Patient presents with Pain Back Pt BIBEMS for severe lower back pain. Pt had nerve stimul[place] has had unresolved pain. Hx of L4-L5 fusion. 4mg morphine given in route by EMS, pain 02/12. Pt was referred to come to this hospital for specialty care. AOx4, appears calm. The patient is being evaluated for BLE pain that the pt describes as like an electric shock like sensation going doing his bilateral lower extremities. Pt states she had a T11-12 laminectomy and dorsal column stimulation device placed two days ago. Pt's intermittent pain has been controlled thus far. At this time the patient's condition is stable Vitals: 03/18/21 1400 03/18/21 1900 03/18/21199903/18/21 204 BP: 149/59 127/61 145/83 Pulse: 71 71 70 Resp: 23 20 Temp: SpO2: 95% 94% Weight: Height: Estimated body mass index is 39.84 kg/m?? as calculated from the following: Height as of this encounter: 1.727 m (5' 8 ). Weight as of this encounter: 118.8 kg (262 lb). At this time the following studies are: Labs Reviewed CBC W AUTO DIFFERENTIAL - Abnormal; Notable for the following components: Result Value Hemoglobin 11.4 (*) Platelet Count 139 (*) RDW-SD 54.5 (*) RDW-CV 16.6 (*) Lymphocytes % 19.4 (*) All other components within normal limits COMPREHENSIVE METABOLIC PANEL - Abnormal; Notable for the following components: Glucose 126 (*) Protein Total 5.8 (*) Albumin 2.7 (*) Albumin/Globulin Ratio 0.9 (*) All other components within normal limits URINALYSIS REFLEX TO MICROSCOPIC NO CULTURE - Abnormal; Notable for the following components: Color UA Meredith (*) Clarity UA Slt Cloudy (*) Nitrite UA Positive (*) Urobilinogen UA 4.0 (*) All other components within normal limits Narrative: PT-INR [facility] - Normal TYPE + SCREEN PANEL BLOOD TYPE VERIFICATION XR THORACIC SPINE 3VW (Results Pending) No results found. Plan: Pending neurosurgery consult, spinal implant device reps Diagnosis: The primary encounter diagnosis was Acute midline thoracic back pain. A diagnosis of Sacral nerve stimulator present was also pertinent to this visit. ED Course: 2:30 PM - Pt re-evaluated. Pt is resting comfortably with no other complaints at this time. NAD. MEANS. 4:25 PM - Spoke to neurosurgery. They will see the pt shortly. 9:00 PM - After discussion with Medicine, the patient will be admitted to their service for furthermanagement for pain control. -I have reviewed the diagnostic findings with the patient and they have had an opportunity to ask me any questions they have about care, diagnosis, and reason for admission. The patient states understanding and agrees to admission. 10:00 PM - RYAN to oncoming team. Pending inpatient bed availability. Disposition: RYAN to oncoming team. Pending inpatient bed availability. By signing my name below, I, Lu Mcmahon, attest that this documentation has been prepared under the direction and in the presence of Dr. Lambert. Signed: Beth Obrien. I, Dr. Lambert, personally performed the services described in this documentation. All medical record entries made by the scribe were at my direction and in my presence. I have reviewed the chart and agree that the record reflects my personal performance and is accurate and complete. IT INVESTIGATOR * Erika Campo RN - 03/18/2021 2:43 PM CST Pt resting in bed watching tv at this time. NAD. IT INVESTIGATOR * Erika Campo RN - 03/18/2021 2:28 PM CST Pt assisted back to bed after using BSC. Pt pad changed, NAD noted. IT INVESTIGATOR * Darrick Mancia MD - 03/18/2021 7:42 AM CST ED ATTENDING NOTE Interval History: Karolina Ramos is a 65 year old female with a past medical history that includes DM, HTN, and chronic back pain is presenting to the ED c/o BLE pain. Patient states that she had T11-T12 laminectomy and dorsal column stimulation device placement two days ago. She states that she began to experience sharp, shooting pain from her mid-back last evening. She notes two episodes of this pain, one last evening and one this morning. She states that the pain lasts for approximately two minutes and is exacerbated by movement. She notes that the pain during the episodes was unbearable with 10/10 in severity. She states that the pain is located in her lower thoracic back and radiates down into her bilate ral legs. She denies any associated numbness, tingling, incontinence, or weakness. She denies any recent falls. She does note that her diabetes is complicated by neuropathy. No other complaints or modifying factors at this time. Past Medical History: Diagnosis Date ??? Constipation ??? Depression ??? Edema bilateral ankles ??? GERD (gastroesophageal reflux disease) ??? History of diabetes mellitus ??? Hypertension ??? MRSA (methicillin resistant Staphylococcus aureus) post right foot surgery ??? Overweight, obesity and other hyperalimentation ??? Psoriasis right leg, both elbows, scalp ??? Psoriatic arthritis ??? Sleep apnea uses cpap machine Past [...] 2004 bilat ??? TUBAL LIGATION, LAPAROSCOPIC 1976 Social History Socioeconomic History ??? Marital status: Spouse name: Not on file ??? Number of children: Not on file ??? Years of education: Not on file ??? Highest education level: Not on file Occupational History ??? 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 Smoking status: Current Every Day Smoker Packs/day: 0.50 Years: 19.00 Pack years: 9.50 Types: Cigarettes Last attempt to quit: 02/17/2013 Years since quittin.0 ??? Smokeless tobacco: Never Used ??? Tobacco comment: a couple cigarettes a day Vaping Use ??? Vaping Use: Never [...] on file Housing Stability: Not on file Review of Systems Constitutional: Negative for chills, fever and malaise/fatigue. HENT: Negative for congestion and sore throat. Eyes: Negative for blurred vision and pain. Respiratory: Negative for cough and shortness of breath. Cardiovascular: Negative for chest pain, palpitations and leg swelling. Gastrointestinal: Negative for abdominal pain, diarrhea, nausea and vomiting. Genitourinary: Negative for dysuria, frequency and hematuria. Musculoskeletal: Positive for back pain. Negative for neck pain. + BLE pain Skin: Negative for itching and rash. Neurological: Negative for dizziness, tingling, focal weakness, loss of consciousness, weakness andheadaches. Vitals: 03/18/21 0616 03/18/21 0930 BP: 147/88 163/99 Pulse: 74 74 Resp: 19 25 Temp: 98.1 ??F (36.7 ??C) SpO2: 95% 93% Weight: 118.8 kg (262 lb) Height: 1.727 m (5' 8 ) Physical Exam HENT: Head: Normocephalic and atraumatic. Eyes: Pupils: Pupils are equal, round, and reactive to light. Cardiovascular: Rate and Rhythm: Normal rate and regular rhythm. Pulses: Radial pulses are 2+ on the right side and 2+ on the left side. Dorsalis pedis pulses are 2+ on the right side and 2+ on the left side. Pulmonary: Effort: Pulmonary effort is normal. Breath sounds: Normal breath sounds. Abdominal: General: Bowel sounds are normal. There is no distension. Palpations: Abdomen is soft. Tenderness: There is no abdominal tenderness. Musculoskeletal: General: No deformity. Cervical back: Normal and neck supple. Thoracic back: Normal. Lumbar back: Tenderness and bony tenderness present. Comments: TTP across lumbar vertebral bodies and bilateral paraspinal muscles Skin: General: Skin is warm and dry. Neurological: Mental Status: She is alert and oriented to person, place, and time. Cranial Nerves: Cranial nerves are intact. Sensory: Sensation is intact. No sensory deficit. Motor: Motor function is intact. No weakness. Medical Decision Making: Dx: 65 y/o female presenting with BLE pain s/p recent implant DDx:Dysfunction of implant device vs surgical complication vs normal post operative course vs other Plan: Neurosurgery consult Results: Labs Reviewed CBC W AUTO DIFFERENTIAL - Abnormal; Notable for the following components: Result Value Hemoglobin 11.4 (*) Platelet Count 139 (*) RDW-SD 54.5 (*) RDW-CV 16.6 (*) Lymphocytes % 19.4 (*) All other components within normal limits COMPREHENSIVE METABOLIC PANEL - Abnormal; Notable for the following components: Glucose 126 (*) Protein Total 5.8 (*) Albumin 2.7 (*) Albumin/Globulin Ratio 0.9 (*) All other components within normal limits URINALYSIS REFLEX TO MICROSCOPIC NO CULTURE - Abnormal; Notable for the following components: Color UA Meredith (*) Clarity UA Slt Cloudy (*) Nitrite UA Positive (*) Urobilinogen UA 4.0 (*) All other components within normal limits Narrative: PT-INR [facility] - Normal TYPE + SCREEN PANEL BLOOD TYPE VERIFICATION No orders to display ED course: The patient's Oxygen Saturation Monitor was interpreted by me. The reading was 98%. The patient wason RA at the time of the reading. This is interpreted as normal. 7:57 AM: Discussed all the pertinent aspects of the case with Neurosurgery, who will see the patient. 2:00 PM: Patient has been signed out to Dr. Lambert. Pending Neurosurgery recommendations. Consult Yes Procedure done at this time No Ultrasound done at this time No CRITICAL CARE IN THE ED No Orders and Medicine administered during this encounter: Orders Placed This Encounter ??? CBC W AUTO DIFFERENTIAL ??? COMPREHENSIVE METABOLIC PANEL ??? PT-INR [facility] ??? URINALYSIS REFLEX TO MICROSCOPIC NO CULTURE ??? IP CONSULT TO NEUROSURGERY ??? HYDROmorphone (Dilaudid) injection 0.5 mg ??? HYDROmorphone (Dilaudid) injection 0.4 mg ??? ondansetron (Zofran) injection 4 mg ??? folic acid (Folvite) tablet 1 mg ??? DULoxetine (Cymbalta) capsule 60 mg ??? gabapentin (Neurontin) capsule 600 mg ??? lisinopril (Prinivil; Zestril) tablet 20 mg ??? hydroCHLOROthiazide (Hydrodiuril) tablet 25 mg Medications HYDROmorphone (Dilaudid) injection 0.4 mg (has no administration in time range) HYDROmorphone (Dilaudid) injection 0.5 mg (0.5 mg Intravenous $ Given 03/18/21941) ondansetron (Zofran) injection 4 mg (4 mg Intravenous $ Given 03/18/21941) folic acid (Folvite) tablet 1 mg (1 mg Oral $ Given 03/18/21941) DULoxetine (Cymbalta) capsule 60 mg (60 mg Oral $ Given 03/18/21940) gabapentin (Neurontin) capsule 600 mg (600 mg Oral $ Given 03/18/21940) lisinopril (Prinivil; Zestril) tablet 20 mg (20 mg Oral $ Given 03/18/21940) hydroCHLOROthiazide (Hydrodiuril) tablet 25 mg (25 mg Oral $ Given 03/18/21940) Clinical Impression: 1. Acute midline thoracic back pain 2. Sacral nerve stimulator present Disposition: RYAN to Dr. Lambert, pending Neurosurgery recommendations By signing my name below, I, Dia Ortega, attest that this documentation has been prepared under the direction and in the presence of Dr. Mancia. Signed: ,Beth Jin. I, Dr. Mancia, personally performed the services described in this documentation. All medical record entries made by the scribe were at my direction and in my presence. I have reviewed the chart and agree that the record reflects my personal performance and is accurate and complete. IT INVESTIGATOR * Erika Campo RN - 03/18/2021 7:30 AM CST Received report from TESHA Delarosa. Assumed care of patient at this time. IT INVESTIGATOR * Marc Chandler RN - 03/18/2021 6:10 AM CST Pt BIBEMS for severe lower back pain. Pt had nerve stimul[place] has had unresolved pain. Hx of L4-L5 fusion. 4mg morphine given in route by EMS, pain 02/12. Pt was referred to come to this hospital for specialty care. AOx4, appears calm. IT INVESTIGATOR * Sunshine Albert RN - 03/18/2021 6:07 AM CST Bed: [facility] Expected date: Expected time: Means of arrival: Comments: [facility] IT INVESTIGATOR documented in this encounter Plan of Treatment Not on file documented as of this encounter Procedures Procedure Name Priority Date/Time Associated Diagnosis Comments SARS-COV-2 (COVID-19)+INFLU A+B PCR RAPID STAT 03/20/2021 1:53 PM CREDIT INVESTIGATOR Acute midline thoracic back pain CBC W/O DIFFERENTIAL STAT 03/20/2021 2:53 AM CREDIT INVESTIGATOR Acute midline thoracic back pain BASIC METABOLIC PANEL (CALCIUM TOTAL) STAT 03/20/2021 2:53 AM CREDIT INVESTIGATOR Acute midline thoracic back pain HEMOGLOBIN A1C YANIV 03/19/2021 3:44 AM CREDIT INVESTIGATOR Pre-diabetes VITAMIN D 25-HYDROXY YANIV 03/19/2021 3:44 AM CREDIT INVESTIGATOR Vitamin D deficiency CBC W/O DIFFERENTIAL STAT 03/19/2021 3:44 AM CREDIT INVESTIGATOR Acute midline thoracic back pain BASIC METABOLIC PANEL (CALCIUM TOTAL) STAT 03/19/2021 3:44 AM CREDIT INVESTIGATOR Acute midline thoracic back pain XR THORACIC SPINE 3VW Routine 03/18/2021 7:56 PM CREDIT INVESTIGATOR Acute midline thoracic back pain BLOOD TYPE VERIFICATION STAT 03/18/2021 10:17 AM CREDIT INVESTIGATOR URINALYSIS REFLEX TO MICROSCOPIC NO CULTURE STAT 03/18/2021 10:16 AM CREDIT INVESTIGATOR PT-INR [facility] STAT 03/18/2021 8:15 AM CREDIT INVESTIGATOR TYPE + SCREEN PANEL STAT 03/18/2021 8 :15 AM CREDIT INVESTIGATOR CBC W AUTO DIFFERENTIAL STAT 03/18/2021 8:15 AM CREDIT INVESTIGATOR COMPREHENSIVE METABOLIC PANEL STAT 03/18/2021 8:15 AM CREDIT INVESTIGATOR documented in this encounter Results * SARS-COV-2 (COVID-19)+INFLU A+B PCR RAPID (03/20/2021 1:53 PM CREDIT INVESTIGATOR) COVID-19 PCR Not detected Not detected 03/20/20 21 2:40 PM CREDIT INVESTIGATOR [facility] Influenza A Rapid SUNIL Not Detected Not Detected 03/20/2021 2:40 PM CREDIT INVESTIGATOR [facility] Influenza B SUNIL Rapid Not Detected Not Detected 03/20/2021 2:40 PM CREDIT INVESTIGATOR [facility] Microbiology SPECIMEN FROM NASOPHARYNGEAL STRUCTURE / Unknown Collection / Unknown 03/20/2021 1:53 PM CREDIT INVESTIGATOR 03/20/2021 1:58 PM CREDIT INVESTIGATOR Narrative [facility] - 03/20/2021 2:40 PM CREDIT INVESTIGATOR Influenza assay performed by [employer]. [...] acid amplification assay performance was validated by [facility]. This test has been authorized by the [...] Chávez MD LAB - MICROBIOLOGY O RDERABLES [facility] [address] [place] [address], [facility] [phone] * (ABNORMAL) CBC W/O DIFFERENTIAL (03/20/2021 2:53 AM CREDIT INVESTIGATOR) WBC 10.4 3.5 - 10.5 10? 3 /uL 03/20/2021 3:02 AM [facility] RBC 4.11 3.80 - 5.20 10? 6 /uL 03/20/2021 3:02 AM [facility] Hemoglobin 12.0 12.0 - 15.6 g/dL 03/20/2021 3:02 AM [facility] Hematocrit 37.8 35.0 - 45.0 % 03/20/2021 3:02 AM [facility] MCV 92.0 80.7 - 98.3 fL 03/20/2021 3:02 AM [facility] MCH 29.2 26.7 - 34.0 pg 03/20/2021 3:02 AM [facility] MCHC 31.7 30.8 - 35.9 g/dL 03/20/2021 3:02 AM [facility] Platelet Count 194 150 - 400 10? 3 /uL 03/20/2021 3:02 AM [facility] RDW-SD 55.7(H) 36.0 - 50.0 fL 03/20/2021 3:02 AM [facility] RDW-CV 16.6(H) 11.2 - 14.8 % 03/20/2021 3:02 AM [facility] MPV 10.7 9.4 - 12.9 fL 03/20/2021 3:02 AM [facility] nRBC Absolute 0.00 0 10? 3 /uL 03/20/2021 3:02 AM [facility] nRBC Auto 0.0 0 /100 WBC 03/20/2021 3:02 AM [facility] Blood BLOOD SPECIMEN / Unknown Venipuncture / Unknown 03/20/2021 2:53 AM CREDIT INVESTIGATOR 03/20/2021 2:56 AM CREDIT INVESTIGATOR Reji Heller MD LAB - HEMATOLOGY ORDERABLES [facility] [address] [place] [address], [facility] [phone] * (ABNORMAL) BASIC METABOLIC PANEL (CALCIUM TOTAL) (03/20/2021 2:53 AM CREDIT INVESTIGATOR) BUN 10 7 - 26 mg/dL 03/20/2021 3:21 AM [facility] Creatinine 0.65 0.56 - 0.96 mg/dL 03/20/2021 3:21 AM [facility] Sodium 142 136 - 145 mmol/L 03/20/2021 3:21 AM [facility] Potassium 3.9 3.5 - 4.5 mmol/L 03/20/2021 3:21 AM [facility] Chloride 104 98 - 107 mmol/L 03/20/2021 3:21 AM [facility] CO2 28 22 - 29 mmol/L 03/20/2021 3:21 AM [facility] Glucose 153(H) 70 - 115 mg/dL 03/20/2021 3:21 AM [facility] Calcium 10.9(H) 8.4 - 10.2 mg/dL 03/20/2021 3:21 AM [facility] Anion Gap 14 8 - 18 03/20/2021 3:21 AM [facility] BUN/Creatinine Ratio 15 7 - 23 03/20/2021 3:21 AM [facility] Osmolality Calculated 296 270 - 300 mOsm/kg 03/20/2021 3:21 AM [facility] eGFR by CKD-EPI >90 >=90 mL/min/1.7 3 m2 03/20/2021 3:21 AM [facility] Blood BLOOD SPECIMEN / Unknown Venipuncture / Unknown 03/20/2021 2:53 AM CREDIT INVESTIGATOR 03/20/2021 2:56 AM CREDIT INVESTIGATOR Reji Heller MD LAB - CHEMISTRY O RDERABLES Performing Organization Address City/[facility] Co de Phone Number [facility] [address] [place] [address] [phone] * (ABNORMAL) CBC W/O DIFFERENTIAL (03/19/2021 3:44 AM CREDIT INVESTIGATOR) WBC 8.7 3.5 - 10.5 10? 3 /uL 03/19/2021 3:53 AM [facility] RBC 3.99 3.80 - 5.20 10? 6 /uL 03/19/2021 3:53 AM [facility] Hemoglobin 11.7(L) 12.0 - 15.6 g/dL 03/19/2021 3:53 AM [facility] Hematocrit 36.2 35.0 - 45.0 % 03/19/2021 3:53 AM [facility] MCV 90.7 80.7 - 98.3 fL 03/19/2021 3:53 AM [facility] MCH 29.3 26.7 - 34.0 pg 03/19/2021 3:53 AM [facility] MCHC 32.3 30.8 - 35.9 g/dL 03/19/2021 3:53 AM [facility] Platelet Count 148(L) 150 - 400 10? 3 /uL 03/19/2021 3:53 AM [facility] RDW-SD 54.3(H) 36.0 - 50.0 fL 03/19/2021 3:53 AM [facility] RDW-CV 16.5(H) 11.2 - 14.8 % 03/19/2021 3:53 AM [facility] MPV 10.8 9.4 - 12.9 fL 03/19/2021 3:53 AM [facility] nRBC Absolute 0.00 0 10? 3 /uL 03/19/2021 3:53 AM [facility] nRBC Auto 0.0 0 /100 WBC 03/19/2021 3:53 AM [facility] Blood BLOOD SPECIMEN / Unknown Venipuncture / Unknown 03/19/2021 3:44 AM CREDIT INVESTIGATOR 03/19/2021 3:47 AM CREDIT INVESTIGATOR Reji Heller MD LAB - HEMATOLOGY ORDERABLES Performing Organization Address City/State/[facility] Co de Phone Number [facility] [address] [place] [address], [facility] [phone] * (ABNORMAL) BASIC METABOLIC PANEL (CALCIUM TOTAL) (03/19/2021 3:44 AM CREDIT INVESTIGATOR) BUN 8 7 - 26 mg/dL 03/19/2021 4:15 AM [facility] Creatinine 0.52(L) 0.56 - 0.96 mg/dL 03/19/2021 4:15 AM [facility] Sodium 137 136 - 145 mmol/L 03/19/2021 4:15 AM [facility] Potassium 4.1 3.5 - 4.5 mmol/L 03/19/2021 4:15 AM [facility] Chloride 102 98 - 107 mmol/L 03/19/2021 4:15 AM [facility] CO2 27 22 - 29 mmol/L 03/19/2021 4:15 AM [facility] Glucose 200(H) 70 - 115 mg/dL 03/19/2021 4:15 AM [facility] Calcium 10.6(H) 8.4 - 10.2 mg/dL 03/19/2021 4:15 AM [facility] Anion Gap 12 8 - 18 03/19/2021 4:15 AM [facility] BUN/Creatinine Ratio 15 7 - 23 03/19/2021 4:15 AM [facility] Osmolality Calculated 288 270 - 300 mOsm/kg 03/19/2021 4:15 AM [facility] eGFR by CKD-EPI >90 >=90 mL/min/1.7 3 m2 03/19/2021 4:15 AM [facility] Blood BLOOD SPECIMEN / Unknown Venipuncture / Unknown 03/19/2021 3:44 AM CREDIT INVESTIGATOR 03/19/2021 3:47 AM CREDIT INVESTIGATOR Reji Heller MD LAB - CHEMISTRY O BAYLEE Performing Organization Address [facility] Co de Phone Number [facility] [address] [place] [address], [facility] [phone] * (ABNORMAL) VITAMIN D 25-HYDROXY (03/19/2021 3:44 AM CREDIT INVESTIGATOR) [facility] Vitamin D, 25 Hydroxy 26.0(L) 30.0 - 80.0 ng/mL 03/19/2021 4:34 AM [facility] Comment: The recommendations for 25-Hydroxy Vitamin D [...] Unknown Venipuncture / Unknown 03/19/2021 3:44 AM CREDIT INVESTIGATOR 03/19/2021 3:47 AM CREDIT INVESTIGATOR Reji Heller MD LAB - CHEMISTRY O BAYLEE Performing Organization Address [facility] Co de Phone Number [facility] [address] [place] [address], [facility] [phone] * (ABNORMAL) HEMOGLOBIN A1C (03/19/2021 3:44 AM CREDIT INVESTIGATOR) Hemoglobin A1c 6.4(H) 4.4 - 6.3 % 03/19/2021 10:28 AM CREDIT INVESTIGATOR [facility] Estimated Average Glucose 137 mg/dL 03/19/2021 10:28 AM [facility] Comment: HbA1c Interpretation: Treatment target values recommended by ADA and other clinical organizations should be used to evaluate metabolic control in patients. Treatment Target Values: Normal : < 5.7% Pre-diabetes: 5.7-6.4% Diabetes: Equal to or greater than 6.5% Reference: [place] [employer] Standards of Care in Diabetes -2014 In patients 70 years and older consider HbA1c target range of 7.0-7.5% Reference: ??Diabetes Mellitus in Older People: Position Statement on behalf of the International Association of Gerontology and Geriatrics (IAGG), the Diabetes Working Libertarian for Older People (EDWPOP), and the International Task Force of Experts in Diabetes. ??Doe Munroe et al. J [place] [employer]. 2012 Test results diagnostic of diabetes should be repeated for confirmation. The Sebia Capillary 2 assay for the measurement of HbA1c is a National Glycohemoglobin Standardization Program (NGSP)certified method. Blood BLOOD SPECIMEN / Unknown Venipuncture / Unknown 03/19/2021 3:44 AM CREDIT INVESTIGATOR 03/19/2021 3:47 AM CREDIT INVESTIGATOR Reji Heller MD LAB - CHEMISTRY O RDERABLES Performing Organization Address City/State/[facility] Co de Phone Number [facility] [address] [address], [facility] [phone] * XR THORACIC SPINE 3VW (03/18/2021 7:56 PM CREDIT INVESTIGATOR) Anatomical Region Laterality Modality Spine Radiographic Rivka ging 03/18/2021 8:04 PM CREDIT INVESTIGATOR Impressions 03/19/2021 12:09 PM CREDIT INVESTIGATOR IMPRESSION: No acute fracture or subluxation identified. I, Dr. KATHERINE MAZARIEGOS have personally reviewed and interpreted this examination/study. This report was electronically signed by KATHERINE MAZARIEGOS ??on 03/19/2021 12:09 PM . Narrative 03/19/2021 12:09 PM CREDIT INVESTIGATOR EXAMINATION: XR THORACIC SPINE 3VW HISTORY: M54.6: Acute midline thoracic back pain COMPARISON: No prior study is available for comparison at the time of this dictation. FINDINGS: The vertebral bodies are normally aligned. There is no fracture or compression deformity. The intervertebral disc spaces are maintained. Spinal stimulator leads superimpose the lower thoracic spine. Procedure Note Katherine Mazariegos, DO - 03/19/2021 EXAMINATION: XR THORACIC SPINE [...] * BLOOD TYPE VERIFICATION (03/18/2021 10:17 AM CREDIT INVESTIGATOR) Pathologist [facility] ABO Rh O POS 03/18/2021 11:07 AM CREDIT INVESTIGATOR [facility] BLOOD BANK LAB Blood Bank BLOOD SPECIMEN / Unknown Lab Venipuncture / Unknown 03/18/2021 10:17 AM CREDIT INVESTIGATOR 03/18/2021 10:28 AM CREDIT INVESTIGATOR Provider Unknown LAB - BLOOD BANK ORD ERABLES [facility] BLOOD BANK LAB [address] [place] [address], [facility] [phone] * (ABNORMAL) URINALYSIS REFLEX TO MICROSCOPIC NO CULTURE (03/18/2021 10:16 AM CREDIT INVESTIGATOR) Color UA Meredith(A) Straw, Yellow 03/18/2021 10:45 AM CREDIT INVESTIGATOR [facility] HOSPITAL Clarity UA Slt Cloudy(A) Clear 03/18/2021 10:45 AM [facility] Specific Cardale UA 1.015 1.005 - 1.030 03/18/2021 10:45 AM [facility] pH UA 6.0 5.0 - 8.0 pH 03/18/2021 10:45 AM [facility] Protein UA Negative Negative 03/18/2021 10:45 AM [facility] Glucose UA Negative Negative 03/18/2021 10:45 AM [facility] Ketone UA Negative Negative 03/18/2021 10:45 AM [facility] Bilirubin UA Negative Negative 03/18/2021 10:45 AM [facility] Blood UA Negative Negative 03/18/2021 10:45 AM [facility] Nitrite UA Positive(A) Negative 03/18/2021 10:45 AM [facility] Leukocyte Esterase Negative Negative 03/18/2021 10:45 AM [facility] Urobilinogen UA 4.0(A) Negative mg/dL 03/18/2021 10:45 AM [facility] RBC UA 0-2 None Seen, 0-2, 3-5 /HPF 03/18/2021 10:45 AM [facility] WBC UA 0-5 None Seen, 0-5 /HPF 03/18/2021 10:45 AM [facility] Squamous Epithelial Cells UA 3-5 None Seen, 0-2, 3-5 /HPF 03/18/2021 10:45 AM [facility] Mucus UA 1+ /LPF 03/18/2021 10:45 AM [facility] Urine URINE SPECIMEN OBTAINED BY CLEAN CATCH PROCEDURE / Unknown Collection / Unknown 03/18/2021 10:16 AM CREDIT INVESTIGATOR 03/18/2021 10:27 AM [facility] - 03/18/2021 10:45 AM [facility] Darrick Mancia MD LAB - URINALYSIS ORD ERABLES [facility] [address] [place] [address], [facility] [phone] * PT-INR [facility] (03/18/2021 8:15 AM CREDIT INVESTIGATOR) Pathologist [facility] PT 14.0 12.1 - 14.8 Seconds 03/18/2021 8:34 AM [facility] INR 1.1 See Comment 03/18/2021 8:34 AM [facility] Comment:The suggested therap eutic range for standard coumadin (warfarin) therapy is an INR of 2.0-3.0. For high-risk patients (Mechanical Mitral Valve Prosthesis, etc.), the suggested prophylactic therapeutic range is an INR of 2.5-3.5. Blood BLOOD SPECIMEN / Unknown Venipuncture / Unknown 03/18/2021 8:15 AM CREDIT INVESTIGATOR 03/18/2021 8:26 AM CREDIT INVESTIGATOR Darrick Mancia MD LAB - COAGULATION OR DERABLES Performing Organization Address City/[facility]/ZIP Co de Phone Number [address] [address], [facility] [phone] * TYPE + SCREEN PANEL (03/18/2021 8:15 AM CREDIT INVESTIGATOR) [facility] Antibody Screen NEG 9:07 AM [facility] BLOOD BANK LAB ABO Rh O POS 03/18/2021 9:07 AM [facility] BLOOD BANK LAB Blood Bank BLOOD SPECIMEN / Unknown Venipuncture / Unknown 03/18/2021 8:15 AM CREDIT INVESTIGATOR 03/18/2021 8:20 AM CREDIT INVESTIGATOR Darrick Mancia MD LAB - BLOOD BANK ORD ERABLES Performing Organization Address City/[facility]/ZIP Co de Phone Number [facility] BLOOD BANK LAB [address] [place] [id number], [facility] [phone] * (ABNORMAL) COMPREHENSIVE METABOLIC PANEL (03/18/2021 8:15 AM CREDIT INVESTIGATOR) [facility] BUN 8 7 - 26 mg/dL 03/18/2021 8:47 AM [facility] Creatinine 0.56 0.56 - 0.96 mg/dL 03/18/2021 8:47 AM [facility] Sodium 139 136 - 145 mmol/L 03/18/2021 8:47 AM [facility] Potassium 3.5 3.5 - 4.5 mmol/L 03/18/2021 8:47 AM [facility] Chloride 105 98 - 107 mmol/L 03/18/2021 8:47 AM [facility] CO2 25 22 - 29 mmol/L 03/18/2021 8:47 AM [facility] Glucose 126(H) 70 - 115 mg/dL 03/18/2021 8:47 AM [facility] Calcium 9.4 8.4 - 10.2 mg/dL 03/18/2021 8:47 AM [facility] Protein Total 5.8(L) 6.0 - 8.3 g/dL 03/18/2021 8:47 AM [facility] Albumin 2.7(L) 3.4 - 5.0 g/dL 03/18/2021 8:47 AM [facility] Bilirubin Total 0.7 0.2 - 1.2 mg/dL 03/18/2021 8:47 AM [facility] Alkaline Phosphatase 125 40 - 150 U/L 03/18/2021 8:47 AM [facility] ALT 22 5 - 55 U/L 03/18/2021 8:47 AM [facility] AST 34 5 - 34 U/L 03/18/2021 8:47 AM [facility] Anion Gap 13 8 - 18 03/18/2021 8:47 AM [facility] BUN/Creatinine Ratio 14 7 - 23 03/18/2021 8:47 AM [facility] Osmolality Calculated 288 270 - 300 mOsm/kg 03/18/2021 8:47 AM [facility] Albumin/Globulin Ratio 0.9(L) 1.1 - 2.3 03/18/2021 8:47 AM [facility] eGFR by CKD-EPI >90 >=90 mL/min/1.7 3 m2 03/18/2021 8:47 AM [facility] Blood BLOOD SPECIMEN / Unknown Venipuncture / Unknown 03/18/2021 8:15 AM CREDIT INVESTIGATOR 03/18/2021 8:19 AM [facility] Darrick Mancia MD LAB - CHEMISTRY MIMI LOTT [facility] Organization Address City/State/ZIP Co de Phone Number [facility] [address] [place] [address] [phone] * (ABNORMAL) CBC W AUTO DIFFERENTIAL (03/18/2021 8:15 AM [facility]) WBC 8.9 3.5 - 10.5 10? 3 /uL 03/18/2021 8:27 AM [facility] RBC 3.95 3.80 - 5.20 10? 6 /uL 03/18/2021 8:27 AM [facility] Hemoglobin 11.4(L) 12.0 - 15.6 g/dL 03/18/2021 8:27 AM [facility] Hematocrit 35.6 35.0 - 45.0 % 03/18/2021 8:27 AM [facility] MCV 90.1 80.7 - 98.3 fL 03/18/2021 8:27 AM [facility] MCH 28.9 26.7 - 34.0 pg 03/18/2021 8:27 AM [facility] MCHC 32.0 30.8 - 35.9 g/dL 03/18/2021 8:27 AM [facility] Platelet Count 139(L) 150 - 400 10? 3 /uL 03/18/2021 8:27 AM [facility] RDW-SD 54.5(H) 36.0 - 50.0 fL 03/18/2021 8:27 AM [facility] RDW-CV 16.6(H) 11.2 - 14.8 % 03/18/2021 8:27 AM [facility] MPV 10.7 9.4 - 12.9 fL 03/18/2021 8:27 AM [facility] nRBC Absolute 0.00 0 10? 3 /uL 03/18/2021 8:27 AM [facility] nRBC Auto 0.0 0 /100 WBC 03/18/2021 8:27 AM [facility] Neutrophils % 67.7 35.0 - 70.0 % 03/18/2021 8:27 AM [facility] Lymphocytes % 19.4(L) 20.0 - 43.0 % 03/18/2021 8:27 AM [facility] Monocytes % 11.6 5.0 - 13.0 % 03/18/2021 8:27 AM [facility] Eosinophils % 0.7 0.0 - 6.0 % 03/18/2021 8:27 AM [facility] Basophil % 0.3 0.0 - 2.0 % 03/18/2021 8:27 AM [facility] Neutrophils Absolute 6.0 1.6 - 7.0 10? 3 /uL 03/18/2021 8:27 AM [facility] Lymphocyte Absolute 1.7 1.1 - 3.9 10? 3 /uL 03/18/2021 8:27 AM [facility] Monocytes Absolute 1.03 0.26 - 1.07 10? 3 /uL 03/18/2021 8:27 AM [facility] Eosinophils Absolute 0.06 0.00 - 0.47 10? 3 /uL 03/18/2021 8:27 AM [facility] Basophils Absolute 0.03 0.00 - 0.08 10? 3 /uL 03/18/2021 8:27 AM [facility] Immature Granulocytes % 0.3 0.0 - 1.0 % 03/18/2021 8:27 AM [facility] Immature Granulocytes Absolute 0.03 03/18/2021 8:27 AM [facility] Immature Platelet Fraction 5.1 1.1 - 6.2 % 03/18/2021 8:27 AM [facility] Blood BLOOD SPECIMEN / Unknown Venipuncture / Unknown 03/18/2021 8:15 AM CREDIT INVESTIGATOR 03/18/2021 8:19 AM [facility] Darrick Mancia MD LAB - HEMATOLOGY ORD ERABLES [facility] [address] [place] [address], [facility] [phone] documented in this encounter Visit Diagnoses Diagnosis Acute midline thoracic back pain- Primary Acute midline thoracic back pain Sacral nerve stimulator present Pre-diabetes Other abnormal glucose Vitamin D deficiency Sacral nerve stimulator present documented in this encounter Administered Medications Inactive Administered Medications - up to 3 most recent administrations Medication Order MAR Action Action Date Dose Rate Site 0.9% NaCl injection 1-10 mL 1-10 mL, Intracatheter, PRN, Other, peripheral line flush, Starting on 03/18/21 at 2106, Until Sat03/22/21 at 1803, Flush peripheral IV catheter with 1-10 mL of normal saline before and after medications and prn to clear blood from the line or to verify patency. 0.9% NaCl injection 3 mL 3 mL, Intracatheter, EVERY 8 HOURS, First dose on 03/18/21 at 2200, Until Discontinued, Flush peripheral IV catheter with 3 mL of normal saline every 8 hours. $ Given 03/21/2021 1:27 PM CREDIT INVESTIGATOR 3 mL $ Given 03/21/2021 6:57 AM CREDIT INVESTIGATOR 3 mL $ Given 03/20/2021 8:14 PM CREDIT INVESTIGATOR 3 mL acetaminophen (Tylenol) tablet 650 mg 650 mg, Oral, EVERY 6 HOURS PRN, Mild Pain, Moderate Pain, Starting on 03/19/21 at 1459, Until Sat03/22/21 at 1803 $ Given 03/22/2021 9:58 AM CREDIT INVESTIGATOR 650 mg $ Given 03/21/2021 4:58 PM CREDIT INVESTIGATOR 650 mg $ Given 03/20/2021 10:17 PM CREDIT INVESTIGATOR 650 mg tifinlnz-zhewryfum-ecqfnovzarq (Maalox;Mylanta) suspension 20 mL 20 mL, Oral, EVERY 6 HOURS PRN, GI Upset, Starting on 03/18/21 at 2108, Until Sat03/22/21 at 1803, Shake well before using. baclofen (Lioresal) tablet 10 mg 10 mg, Oral, AT BEDTIME, First dose on 03/18/21 at 2230, Until Discontinued $ Given 03/21/2021 8:33 PM CREDIT INVESTIGATOR 10 mg $ Given 03/20/2021 8:13 PM CREDIT INVESTIGATOR 10 mg $ Given 03/19/2021 8:53 PM CREDIT INVESTIGATOR 10 mg busPIRone (Buspar) tablet 5 mg 5 mg, Oral, 2 TIMES DAILY, First dose on 03/18/21 at 2230, Until Discontinued $ Given 03/22/2021 8:25 AM CREDIT INVESTIGATOR 5 mg $ Given 03/21/2021 8:34 PM CREDIT INVESTIGATOR 5 mg $ Given 03/21/2021 9:05 AM CREDIT INVESTIGATOR 5 mg calcitriol (Rocaltrol) capsule 0.25 mcg 0.25 mcg, Oral, DAILY, First dose on 03/19/21 at 0900, Until Discontinued $ Given 03/22/2021 8:25 AM CREDIT INVESTIGATOR 0.25 mc g $ Given 03/21/2021 9:05 AM CREDIT INVESTIGATOR 0.25 mcg $ Given 03/20/2021 8:47 AM CREDIT INVESTIGATOR 0.25 mcg cyclobenzaprine (Flexeril) tablet 10 mg 10 mg, Oral, 2 TIMES DAILY PRN, Muscle Spasms, Starting on 03/18/21 at 2152, Until Sat03/22/21 at 1803 $ Given 03/20/2021 6:15 AM CREDIT INVESTIGATOR 10 mg $ Given 03/18/2021 11:10 PM CREDIT INVESTIGATOR 10 mg DULoxetine (Cymbalta) capsule 60 mg 60 mg, Oral, ONCE, 1 dose, On 03/18/21 at 0830, Capsules should be swallowed whole and not chewed, crushed, or opened to be sprinkled on food or mixed with liquids. $ Given 03/18/2021 9:41 AM CREDIT INVESTIGATOR 60 mg DULoxetine (Cymbalta) capsule 60 mg 60 mg, Oral, 2 TIMES DAILY, First dose on 03/18/21 at 2230, Until Discontinued, Capsules should be swallowed whole and not chewed, crushed, or opened to be sprinkled on food or mixed with liquids. $ Given 03/22/2021 8:24 AM CREDIT INVESTIGATOR 60 mg $ Given 03/21/2021 9:05 AM CREDIT INVESTIGATOR 60 mg $ Given 03/20/2021 8:13 PM CREDIT INVESTIGATOR 60 mg enoxaparin (Lovenox) injection 40 mg 40 mg, Subcutaneous, DAILY, First dose on 03/19/21 at 0900, Until Discontinued, (for prefilled syringes) do not expel air bubble from the syringe prior to the injection Remind Patient to not rub injection site. Could cause hematoma. $ Given 03/22/2021 8:26 AM CREDIT INVESTIGATOR 40 mg Ab dominal Tissue $ Given 03/21/2021 9:04 AM CREDIT INVESTIGATOR 40 mg Ab d Left Lower Quadrant $ Given 03/20/2021 8:49 AM CREDIT INVESTIGATOR 40 mg Ab d Left Upper Quadrant escitalopram (Lexapro) tablet 10 mg 10 mg, Oral, DAILY, First dose on 03/19/21 at 0900, Until Discontinued $ Given 03/22/2021 8:26 AM CREDIT INVESTIGATOR 10 mg $ Given 03/21/2021 9:05 AM CREDIT INVESTIGATOR 10 mg $ Given 03/20/2021 8:49 AM CREDIT INVESTIGATOR 10 mg folic acid (Folvite) tablet 1 mg 1 mg, Oral, NOW, 1 dose, On 03/18/21 at 0830 $ Given 03/18/2021 9:42 AM CREDIT INVESTIGATOR 1 mg folic acid (Folvite) tablet 1 mg 1 mg, Oral, DAILY, First dose on 03/19/21 at 0900, Until Discontinued $ Given 03/22/2021 8:25 AM CREDIT INVESTIGATOR 1 mg $ Given 03/21/2021 9:06 AM CREDIT INVESTIGATOR 1 mg $ Given 03/20/2021 8:48 AM CREDIT INVESTIGATOR 1 mg gabapentin (Neurontin) capsule 600 mg 600 mg, Oral, NOW, 1 dose, On 03/18/21 at 0830 $ Given 03/18/2021 9:41 AM CREDIT INVESTIGATOR 600 mg gabapentin (Neurontin) capsule 600 mg 600 mg, Oral, 3 TIMES DAILY, First dose on 03/18/21 at 2230, Until Discontinued $ Given 03/22/2021 2:00 PM CREDIT INVESTIGATOR 600 mg $ Given 03/22/2021 8:25 AM CREDIT INVESTIGATOR 600 mg $ Given 03/21/2021 8:33 PM CREDIT INVESTIGATOR 600 mg hydroCHLOROthiazide (Hydrodiuril) tablet 25 mg 25 mg, Oral, NOW, 1 dose, On 03/18/21 at 0830 $ Given 03/18/2021 9:41 AM CREDIT INVESTIGATOR 25 mg hydroCHLOROthiazide (Hydrodiuril) tablet 25 mg 25 mg, Oral, DAILY, First dose on 03/19/21 at 0900, Until Discontinued, Take with lisinopril to equal combination product. $ Given 03/22/2021 8:25 AM CREDIT INVESTIGATOR 25 mg $ Given 03/21/2021 9:06 AM CREDIT INVESTIGATOR 25 mg $ Given 03/20/2021 8:46 AM CREDIT INVESTIGATOR 25 mg HYDROmorphone (Dilaudid) injection 0.4 mg 0.4 mg, Intravenous, EVERY 4 HOURS PRN, Moderate Pain, Starting on 03/18/21 at 0744, Until 03/18/21 at 2106 $ Given 03/18/2021 2:40 PM CREDIT INVESTIGATOR 0.4 mg HYDROmorphone (Dilaudid) injection 0.5 mg 0.5 mg, Intravenous, NOW, 1 dose, On 03/18/21 at 0745 $ Given 03/18/2021 9:42 AM CREDIT INVESTIGATOR 0.5 mg lisinopril (Prinivil; Zestril) tablet 20 mg 20 mg, Oral, NOW, 1 dose, On 03/18/21 at 0830 $ Given 03/18/2021 9:41 AM CREDIT INVESTIGATOR 20 mg lisinopril (Prinivil; Zestril) tablet 20 mg 20 mg, Oral, DAILY, First dose on 03/19/21 at 0900, Until Discontinued, Take with hydrochlorothiazide to equal combination product. $ Given 03/22/2021 8:25 AM CREDIT INVESTIGATOR 20 mg $ Given 03/21/2021 9:06 AM CREDIT INVESTIGATOR 20 mg $ Given 03/20/2021 8:46 AM CREDIT INVESTIGATOR 20 mg methotrexate tablet 20 mg 20 mg, Oral, EVERY 7 DAYS, First dose on Sat03/21/21 at 0900, Until Discontinued $ Given 03/21/2021 9:03 AM CREDIT INVESTIGATOR 20 mg methylPREDNISolone (Medrol) tablet 24 mg 24 mg, Oral, ONCE, 1 dose, On 03/18/21 at 2230 $ Given 03/18/2021 11:09 PM CREDIT INVESTIGATOR 24 mg methylPREDNISolone (Medrol) tablet 4 mg 4 mg, Oral, DAILY BEFORE BREAKFAST, 1 dose, First dose on 03/19/21 at 0700 $ Given 03/19/2021 9:51 AM CREDIT INVESTIGATOR 4 m g methylPREDNISolone (Medrol) tablet 4 mg 4 mg, Oral, DAILY AFTER LUNCH, 1 dose, First dose on 03/19/21 at 1300 $ Given 03/19/2021 2:25 PM CREDIT INVESTIGATOR 4 mg methylPREDNISolone (Medrol) tablet 4 mg 4 mg, Oral, DAILY BEFORE BREAKFAST, 1 dose, First dose (after last reorder) on Rhoda 03/23/21 at 0700 methylPREDNISolone (Medrol) tablet 4 mg 4 mg, Oral, AT BEDTIME, 1 dose, First dose (after last reorder) on Sat03/22/21 at 2100 methylPREDNISolone (Medrol) tablet 4 mg 4 mg, Oral, DAILY BEFORE BREAKFAST, 1 dose, First dose (after last reorder) on Sat03/22/21 at 0700 $ Given 03/22/2021 8:25 AM CREDIT INVESTIGATOR 4 mg methylPREDNISolone (Medrol) tablet 4 mg 4 mg, Oral, AT BEDTIME, 1 dose, First dose (after last reorder) on Sat03/21/21 at 2100 $ Given 03/21/2021 8:33 PM CREDIT INVESTIGATOR 4 mg methylPREDNISolone (Medrol) tablet 4 mg 4 mg, Oral, DAILY AFTER LUNCH, 1 dose, First dose (after last reorder) on Sat03/21/21 at 1300 $ Given 03/21/2021 1:26 PM CREDIT INVESTIGATOR 4 mg methylPREDNISolone (Medrol) tablet 4 mg 4 mg, Oral, DAILY BEFORE BREAKFAST, 1 dose, First dose (after last reorder) on Sat03/21/21 at 0700 $ Given 03/21/2021 6:56 AM CREDIT INVESTIGATOR 4 mg methylPREDNISolone (Medrol) tablet 4 mg 4 mg, Oral, AT BEDTIME, 1 dose, First dose (after last reorder) on Sat03/20/21 at 2100 $ Given 03/20/2021 11:27 PM CREDIT INVESTIGATOR 4 mg methylPREDNISolone (Medrol) tablet 4 mg 4 mg, Oral, DAILY AFTER DINNER, 1 dose, First dose (after last reorder) on Sat03/20/21 at 1900 $ Given 03/20/2021 8:13 PM CREDIT INVESTIGATOR 4 mg methylPREDNISolone (Medrol) tablet 4 mg 4 mg, Oral, DAILY AFTER LUNCH, 1 dose, First dose (after last reorder) on Sat03/20/21 at 1300 $ Given 03/20/2021 1:50 PM CREDIT INVESTIGATOR 4 mg methylPREDNISolone (Medrol) tablet 4 mg 4 mg, Oral, DAILY BEFORE BREAKFAST, 1 dose, First dose (after last reorder) on Sat03/20/21 at 0700 $ Given 03/20/2021 6:15 AM CREDIT INVESTIGATOR 4 mg methylPREDNISolone (Medrol) tablet 8 mg 8 mg, Oral, AT BEDTIME, 1 dose, First dose (after last reorder) on Sat03/19/21 at 2100 $ Given 03/19/2021 8:55 PM CREDIT INVESTIGATOR 8 mg multiple vitamins with iron tablet tablet 1 tablet 1 tablet, Oral, DAILY, First dose on Sat03/19/21 at 0900, Until Discontinued, . WASTE DISPOSAL INSTRUCTIONS: Black Bin Disposal required. $ Given 03/22/2021 8:26 AM CREDIT INVESTIGATOR 1 tablet $ Given 03/21/2021 9:05 AM CREDIT INVESTIGATOR 1 tablet $ Given 03/20/2021 9:23 AM CREDIT INVESTIGATOR 1 tablet nicotine (Nicoderm CQ) patch 14 mg 14 mg, Administer over 24 Hours, DAILY, First dose on 03/19/21 at 0900, Until Discontinued, Remove old patch before applying new patch. This patch may contain metal and is not compatible with MRI. Notify radiology of patch location upon arrival to MRI. . WASTE DISPOSAL INSTRUCTIONS: P-Listed item. Special Disposal Required. . ondansetron (Zofran) injection 4 mg 4 mg, Intravenous, NOW, 1 dose, On 03/18/21 at 0745, Administer over 2 to 5 minutes. $ Given 03/18/2021 9:42 AM CREDIT INVESTIGATOR 4 mg oxyCODONE (immediate release) (Roxicodone) tablet 5 mg 5 mg, Oral, EVERY 4 HOURS PRN, Moderate Pain, Starting on 03/18/21 at 2108, Until 03/19/21 at 1459 $ Given 03/18/2021 11:09 PM CREDIT INVESTIGATOR 5 mg oxyCODONE (immediate release) (Roxicodone) tablet 5 mg 5 mg, Oral, EVERY 4 HOURS PRN, Severe Pain, Starting on 03/19/21 at 1459, Until Sat03/22/21 at 1803 $ Given 03/22/2021 1:09 AM CREDIT INVESTIGATOR 5 mg $ Given 03/20/2021 9:22 AM CREDIT INVESTIGATOR 5 mg polyethylene glycol 3350 (Miralax) packet 17 g 17 g, Oral, DAILY, First dose on 03/20/21 at 1100, Until Discontinued, Mix in 8 ounces of water, juice, soda, coffee or tea prior to administration $ Given 03/20/2021 12:09 PM CREDIT INVESTIGATOR 17 g prochlorperazine (Compazine) injection 5 mg 5 mg, Intravenous, EVERY 6 HOURS PRN, Nausea/Vomiting, Starting on 03/18/21 at 2108, Until Sat03/22/21 at 1803, Administer IV if patient is NPO, actively vomiting, or unable to swallow. prochlorperazine (Compazine) tablet 5 mg 5 mg, Oral, EVERY 6 HOURS PRN, Nausea/Vomiting, Starting on 03/18/21 at 2108, Until Sat03/22/21 at 1803 senna (Senokot) tablet 8.6 mg 8.6 mg, Oral, DAILY, First dose on 03/20/21 at 1100, Until Discontinued $ Given 03/22/2021 8:25 AM CREDIT INVESTIGATOR 8.6 mg $ Given 03/21/2021 9:05 AM CREDIT INVESTIGATOR 8.6 mg $ Given 03/20/2021 12:09 PM CREDIT INVESTIGATOR 8.6 mg simvastatin (Zocor) tablet 10 mg 10 mg, Oral, AT BEDTIME, First dose on 03/18/21 at 2230, Until Discontinued $ Given 03/21/2021 8:34 PM CREDIT INVESTIGATOR 10 mg $ Given 03/20/2021 8:14 PM CREDIT INVESTIGATOR 10 mg $ Given 03/19/2021 8:54 PM CREDIT INVESTIGATOR 10 mg sulfaSALAzine (Azulfidine) tablet 500 mg 500 mg, Oral, 2 TIMES DAILY, First dose on 03/18/21 at 2230, Until Discontinued, Take with a full glass of water $ Given 03/22/2021 8:25 AM CREDIT INVESTIGATOR 500 mg $ Given 03/21/2021 8:33 PM CREDIT INVESTIGATOR 500 mg $ Given 03/21/2021 9:04 AM CREDIT INVESTIGATOR 500 mg traZODone (Desyrel) tablet 200 mg 200 mg, Oral, AT BEDTIME, First dose on 03/18/21 at 2230, Until Discontinued $ Given 03/21/2021 8:32 PM CREDIT INVESTIGATOR 200 mg $ Given 03/20/2021 8:13 PM CREDIT INVESTIGATOR 200 mg $ Given 03/19/2021 8:56 PM CREDIT INVESTIGATOR 200 mg vitamin D (ergocalciferol) (Drisdol) 1.25 MG (81476 UT) capsule 50,000 Units 50,000 Units, Oral, EVERY 7 DAYS, First dose on Sat03/20/21 at 0900, Until Discontinued, Do not crush or chew. $ Given 03/20/2021 9:22 AM CREDIT INVESTIGATOR 50,000 Units documented in this encounter Active and Recently Administered Medications Times are shown in CREDIT INVESTIGATOR. Scheduled Medication Order 03/20/2021 03/21/2021 03/22/2021 0.9% NaCl injection 3 mL(Linked Group 1) 3 mL, Intracatheter, EVERY 8 HOURS, First dose on 03/18/21 at 2200, Until Discontinued, Flush peripheral IV catheter with 3 mL of normal saline every 8 hours. 0500 (Not Administered - Provider: Maday Soria RN - Reason: Patient sleeping)1400 (Not Administered - Provider: Joelle Shaikh RN - Reason: See Comments - Comment: not here at the time)2013 ($ Given - Provider: Joelle Shaikh RN)2218 (Not Administered - Provider: Joelle Shaikh RN - Reason: See Comments - Comment: dose was given earlier) 0657 ($ Given - Provider: Joelle Shaikh RN)1327 ($ Given - Provider: Deborah Goodrich RN)2200 (Canceled Entry - Provider: Janis Purcell RN) 0600 (Canceled Entry - Provider: Janis Purcell RN)1359 (Not Administered - Provider: Gustavo Floyd RN - Reason: Loss of Access) baclofen (Lioresal) tablet 10 mg 10 mg, Oral, AT BEDTIME, First dose on 03/18/21 at 2230, Until Discontinued 2012 ($ Given - Provider: Joelle Shaikh RN) 2032 ($ Given - Provider: Janis Purcell RN) busPIRone (Buspar) tablet 5 mg 5 mg, Oral, 2 TIMES DAILY, First dose on 03/18/21 at 2230, Until Discontinued 0848 ($ Given - Provider: Ashley Moreno RN)2013 ($ Given - Provider: Joelle Shaikh RN) 09 ($ Given - Provider: Deborah Goodrich RN)2033 ($ Given - Provider: Janis uPrcell RN) 0825 ($ Given - Provider: Gustavo Floyd RN) calcitriol (Rocaltrol) capsule 0.25 mcg 0.25 mcg, Oral, DAILY, First dose on 03/19/21 at 0900, Until Discontinued 0847 ($ Given - Provider: Ashley Moreno RN) 0905 ($ Given - Provider: Deborah Goodrich RN) 0825 ($ Given - Provider: Gustavo Floyd RN) DULoxetine (Cymbalta) capsule 60 mg 60 mg, Oral, 2 TIMES DAILY, First dose on 03/18/21 at 2230, Until Discontinued, Capsules should be swallowed whole and not chewed, crushed, or opened to be sprinkled on food or mixed with liquids. 0845 ($ Given - Provider: Ashley Moreno RN)2012 ($ Given - Provider: Joelle Shaikh, RN) 09 ($ Given - Provider: Deborah Goodrich RN)2032 (Not Administered - Provider: Janis Purcell RN - Reason: Refused-Patient) 0824 ($ Given - Provider: Gustavo Floyd, TESHA) enoxaparin (Lovenox) injection 40 mg 40 mg, Subcutaneous, DAILY, First dose on 03/19/21 at 0900, Until Discontinued, (for prefilled syringes) do not expel air bubble from the syringe prior to the injection Remind Patient to not rub injection site. Could cause hematoma. 0849 ($ Given - Provider: Ashley Moreno RN) 0904 ($ Given - Provider: Deborah Goodrich RN) 0826 ($ Given - Provider: Gustavo Floyd, TESHA) escitalopram (Lexapro) tablet 10 mg 10 mg, Oral, DAILY, First dose on 03/19/21 at 0900, Until Discontinued 0849 ($ Given - Provider: Ashley Moreno RN) 0905 ($ Given - Provider: Deborah Goodrich RN) 0826 ($ Given - Provider: Gustavo Floyd, TESHA) folic acid (Folvite) tablet 1 mg 1 mg, Oral, DAILY, First dose on 03/19/21 at 0900, Until Discontinued 0848 ($ Given - Provider: Ashley Moreno RN) 0906 ($ Given - Provider: Deborah Goodrich, TESHA) 0825 ($ Given - Provider: Gustavo Floyd, TESHA) gabapentin (Neurontin) capsule 600 mg 600 mg, Oral, 3 TIMES DAILY, First dose on 03/18/21 at 2230, Until Discontinued 0846 ($ Given - Provider: Ashley Moreno RN)1350 ($ Given - Provider: Ashley Moreno RN)2012 ($ Given - Provider: Joelle Shaikh, TESHA) 09 ($ Given - Provider: Deborah Goodrich RN)1326 ($ Given - Provider: Deborah Goodrich RN)2032 ($ Given - Provider: Janis Purcell, TESHA) 0825 ($ Given - Provider: Gustavo Floyd RN)1400 ($ Given - Provider: Gustavo Floyd RN) hydroCHLOROthiazide (Hydrodiuril) tablet 25 mg(Linked Group 2) 25 mg, Oral, DAILY, First dose on Sat03/19/21 at 0900, Until Discontinued, Take with lisinopril to equal combination product. 0846 ($ Given - Provider: Ashley Moreno RN) 09 ($ Given - Provider: Deborah Goodrich RN) 0825 ($ Given - Provider: Gustavo Floyd RN) lisinopril (Prinivil; Zestril) tablet 20 mg(Linked Group 2) 20 mg, Oral, DAILY, First dose on Sat03/19/21 at 0900, Until Discontinued, Take with hydrochlorothiazide to equal combination product. 0846 ($ Given - Provider: Ashley Moreno RN) 09 ($ Given - Provider: Deborah Goodrich RN) 0825 ($ Given - Provider: Gustavo Floyd RN) methotrexate tablet 20 mg 20 mg, Oral, EVERY 7 DAYS, First dose on Sat03/21/21 at 0900, Until Discontinued 902 ($ Given - Provider: Deborah Goodrich RN) methylPREDNISolone (Medrol) tablet 4 mg 4 mg, Oral, DAILY BEFORE BREAKFAST, 1 dose, First dose (after last reorder) on Sat03/23/21 at 0700 methylPREDNISolone (Medrol) tablet 4 mg 4 mg, Oral, AT BEDTIME, 1 dose, First dose (after last reorder) on Sat03/22/21 at 2100 methylPREDNISolone (Medrol) tablet 4 mg (COMPLETED) 4 mg, Oral, DAILY BEFORE BREAKFAST, 1 dose, First dose (after last reorder) on Sat03/22/21 at 0700 0825 ($ Given - Provider: Gustavo Floyd RN) methylPREDNISolone (Medrol) tablet 4 mg (COMPLETED) 4 mg, Oral, AT BEDTIME, 1 dose, First dose (after last reorder) on Sat03/21/21 at 2100 2033 ($ Given - Provider: Janis Purcell RN) methylPREDNISolone (Medrol) tablet 4 mg (COMPLETED) 4 mg, Oral, DAILY AFTER LUNCH, 1 dose, First dose (after last reorder) on Sat03/21/21 at 1300 1326 ($ Given - Provider: Deborah Goodrich RN) methylPREDNISolone (Medrol) tablet 4 mg (COMPLETED) 4 mg, Oral, DAILY BEFORE BREAKFAST, 1 dose, First dose (after last reorder) on Sat03/21/21 at 0700 0656 ($ Given - Provider: Joelle Shaikh, TESHA) methylPREDNISolone (Medrol) tablet 4 mg (COMPLETED) 4 mg, Oral, AT BEDTIME, 1 dose, First dose (after last reorder) on Sat03/20/21 at 2100 2327 ($ Given - Provider: Joelle Shaikh, TESHA) methylPREDNISolone (Medrol) tablet 4 mg (COMPLETED) 4 mg, Oral, DAILY AFTER DINNER, 1 dose, First dose (after last reorder) on Sat03/20/21 at 1900 2013 ($ Given - Provider: Joelle Shaikh, TESHA) methylPREDNISolone (Medrol) tablet 4 mg (COMPLETED) 4 mg, Oral, DAILY AFTER LUNCH, 1 dose, First dose (after last reorder) on Sat03/20/21 at 1300 1350 ($ Given - Provider: Ashley Moreno RN) methylPREDNISolone (Medrol) tablet 4 mg (COMPLETED) 4 mg, Oral, DAILY BEFORE BREAKFAST, 1 dose, First dose (after last reorder) on Sat03/20/21 at 0700 0615 ($ Given - Provider: Maday Soria RN) multiple vitamins with iron tablet tablet 1 tablet 1 tablet, Oral, DAILY, First dose on Sat03/19/21 at 0900, Until Discontinued, . WASTE DISPOSAL INSTRUCTIONS: Black Bin Disposal required. 0923 ($ Given - Provider: Ashley Moreno RN) 09 ($ Given - Provider: Deborah Goodrich RN) 0826 ($ Given - Provider: Gustavo Floyd, TESHA) nicotine (Nicoderm CQ) patch 14 mg 14 mg, Administer over 24 Hours, DAILY, First dose on Sat03/19/21 at 0900, Until Discontinued, Remove old patch before applying new patch. This patch may contain metal and is not compatible with MRI. Notify radiology of patch location upon arrival to MRI. . WASTE DISPOSAL INSTRUCTIONS: P-Listed item. Special Disposal Required. . 0851 (Not Administered - Provider: Ashley Moreno RN - Reason: Refused-Patient) 09 (Not Administered - Provider: Deborah Goodrich RN - Reason: Refused-Patient) 0827 (Not Administered - Provider: Gustavo Floyd RN - Reason: Refused-Patient) polyethylene glycol 3350 (Miralax) packet 17 g 17 g, Oral, DAILY, First dose on Sat03/20/21 at 1100, Until Discontinued, Mix in 8 ounces of water, juice, soda, coffee or tea prior to administration 1209 ($ Given - Provider: Ashley Moreno RN) 0904 (Not Administered - Provider: Deborah Goodrich RN - Reason: Refused-Patient) 0827 (Not Administered - Provider: Gustavo Floyd RN - Reason: Refused-Patient) senna (Senokot) tablet 8.6 mg 8.6 mg, Oral, DAILY, First dose on Sat03/20/21 at 1100, Until Discontinued 1209 ($ Given - Provider: Ashley Moreno RN) 0905 ($ Given - Provider: Deborah Goodrich RN) 0825 ($ Given - Provider: Gustavo Floyd RN) simvastatin (Zocor) tablet 10 mg 10 mg, Oral, AT BEDTIME, First dose on Sat03/18/21 at 2230, Until Discontinued 2013 ($ Given - Provider: Joelle Shaikh RN) 2033 ($ Given - Provider: Janis Purcell RN) sulfaSALAzine (Azulfidine) tablet 500 mg 500 mg, Oral, 2 TIMES DAILY, First dose on Sat03/18/21 at 2230, Until Discontinued, Take with a full glass of water 09 ($ Given - Provider: Ashley Moreno RN)2013 ($ Given - Provider: Joelle Shaikh, TESHA) 09 ($ Given - Provider: Deborah Goodrich RN)2032 ($ Given - Provider: Janis Purcell, TESHA) 0825 ($ Given - Provider: Gustavo Floyd, TESHA) traZODone (Desyrel) tablet 200 mg 200 mg, Oral, AT BEDTIME, First dose on Sat03/18/21 at 2230, Until Discontinued 2012 ($ Given - Provider: Joelle Shaikh RN) 2031 ($ Given - Provider: Janis Purcell RN) vitamin D (ergocalciferol) (Drisdol) 1.25 MG (88421 UT) capsule 50,000 Units 50,000 Units, Oral, EVERY 7 DAYS, First dose on Sat21 at 0900, Until Discontinued, Do not crush or chew. 0922 ($ Given - Provider: Ashley Moreno, RN) PRN Medication Order 03/20/2021 03/21/2021 03/22/2021 0.9% NaCl injection 1-10 mL(Linked Group 1) 1-10 mL, Intracatheter, PRN, Other, peripheral line flush, Starting on 03/18/21 at 2106, Until Sat03/22/21 at 1803, Flush peripheral IV catheter with 1-10 mL of normal saline before and after medications and prn to clear blood from the line or to verify patency. acetaminophen (Tylenol) tablet 650 mg 650 mg, Oral, EVERY 6 HOURS PRN, Mild Pain, Moderate Pain, Starting on 03/19/21 at 1459, Until Sat03/22/21 at 1803 2217 ($ Given - Provider: Joelle Shaikh RN) 1658 ($ Given - Provider: Deborah Goodrich RN) 0958 ($ Given - Provider: Gustavo Floyd RN) zfiofrxf-bdiguobud-pdp ethicone (Maalox;Mylanta) suspension 20 mL 20 mL, Oral, EVERY 6 HOURS PRN, GI Upset, Starting on 03/18/21 at 2108, Until Sat03/22/21 at 1803, Shake well before using. cyclobenzaprine (Flexeril) tablet 10 mg 10 mg, Oral, 2 TIMES DAILY PRN, Muscle Spasms, Starting on 03/18/21 at 2152, Until Sat03/22/21 at 1803 0615 ($ Given - Provider: Maday Soria RN) oxyCODONE (immediate release) (Roxicodone) tablet 5 mg 5 mg, Oral, EVERY 4 HOURS PRN, Severe Pain, Starting on 03/19/21 at 1459, Until Sat03/22/21 at 1803 0922 ($ Given - Provider: Ashley Moreno RN) 0109 ($ Given - Provider: Janis Purcell RN) prochlorperazine (Compazine) injection 5 mg(Linked Group 3) 5 mg, Intravenous, EVERY 6 HOURS PRN, Nausea/Vomiting, Starting on 03/18/21 at 2108, Until Sat03/22/21 at 1803, Administer IV if patient is NPO, actively vomiting, or unable to swallow. prochlorperazine (Compazine) tablet 5 mg(Linked Group 3) 5 mg, Oral, EVERY 6 HOURS PRN, Nausea/Vomiting, Starting on 03/18/21 at 2108, Until Sat03/22/21 at 1803 Linked Groups Order Group 1: SALINE LOCK, INSERT AND MAINTAIN (CANCELED) Routine, CONTINUOUS, Starting on 03/18/21 at 2115, Until Specified, New collection And 0.9% NaCl injection 3 mLJump to med 3 mL, Intracatheter, EVERY 8 HOURS, First dose on 03/18/21 at 2200, Until Discontinued, Flush peripheral IV catheter with 3 mL of normal saline every 8 hours. And 0.9% NaCl injection 1-10 mLJump to med 1-10 mL, Intracatheter, PRN, Other, peripheral line flush, Starting on 03/18/21 at 2106, Until Sat03/22/21 at 1803, Flush peripheral IV catheter with 1-10 mL of normal saline before and after medications and prn to clear blood from the line or to verify patency. Group 2: lisinopril (Prinivil; Zestril) tablet 20 mgJump to med 20 mg, Oral, DAILY, First dose on Sat03/19/21 at 0900, Until Discontinued, Take with hydrochlorothiazide to equal combination product. And hydroCHLOROthiazide (Hydrodiuril) tablet 25 mgJump to med 25 mg, Oral, DAILY, First dose on Sat03/19/21 at 0900, Until Discontinued, Take with lisinopril to equal combination product. Group 3: prochlorperazine (Compazine) tablet 5 mgJump to med 5 mg, Oral, EVERY 6 HOURS PRN, Nausea/Vomiting, Starting on 03/18/21 at 2108, Until Sat03/22/21 at 1803 Or prochlorperazine (Compazine) injection 5 mgJump to med 5 mg, Intravenous, EVERY 6 HOURS PRN, Nausea/Vomiting, Starting on 03/18/21 at 2108, Until Sat03/22/21 at 1803, Administer IV if patient is NPO, actively vomiting, or unable to swallow. 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
--- OUTSIDE RECORDS SUMMARY | 2024-05-11 12:07 | XMS_ITS | Encounter Summary ---
Author Organization [facility] Address [address] [place] [address] Care Team Providers Care [place] Tribunal Member Name Role Phone Summer Green RN Unavailable [phone] Jacki Cabrera MD Primary Care Provider Reason for Visit * Neurology (Routine) - Closed Specialty Diagnoses / Procedures Referred By Calvin bentley Referred To Contact Neurology [facility] [address] [place] [address] [facility] [address] [place] [id number] Referral ID Status Reason Start Date Expiration Date Visits Re quested Visits Authorized [id number] Closed 12/11/2016 06/09/2017 1 1 Encounter Details Date Type Department Care Team (Late st Contact Info) Description 12/11/2016 10:30 AM CDT - 12/11/2016 11:14 AM T Hospital Encounter [facility] Neurosciences - Neurology [address] [place] [id number] Lauro Babb MD [address] [place] [address] [place] [address] Discharge Disposition: Home or Self Care Social [...] as of this encounter Procedure Notes * Chas Pitts MD - 12/11/2016 11:14 AM CDTAssociated Order(s): EEG [facility] Neurodiagnostics Laboratory EEG Patient:AHSAN HANEY LPatient Type: CSN:[id number]/Age:13 1955 61 Stn/Rm/Bed:[facility] Sex/Race:F Unit #:[id number] Adrs:[address] Prim Phys: Attend Phys: [facility]//Zip:[place] [address] Admit Date:December 11, 2016Disch To: Disch Date: EE. DATE OF SERVICE: 12/11/2016 REFERRING PHYSICIAN: Dr. Lauro Babb LOCATION: Outpatient. CLINICAL NOTE: The patient is 61-year-old female with history of syncopal episode, diabetes mellitus, hypertension, currently on lovastatin, Cymbalta, lisinopril, Neurontin, Otezla, omeprazole, trazodone, methotrexate, and vitamin B12. This is a 21-channel recording done in the Neurodiagnostic Lab using 10-20 system electrode placement. EEG DESCRIPTION: During wakefulness, the background activity consists of posterior dominant alpha rhythm at 10 hertz with an amplitude of 15-30 microvolts, which appears mildly formed and reactive toeye opening. Anteriorly, low amplitude mixed frequency activity was seen. Hyperventilation not performed. The patient did not progress to stage 2 sleep. However was noted to be intermittently drowsy,during which attenuation of background activity was seen. Photic stimulation performed during whichno significant abnormal background changes were noted. No appreciable driving response was seen. IMPRESSION: This is a normal EEG obtained during awake and drowsy states. Chas Pitts M.D. SN/MODL /[id number] cc: Ladarius Harris M.D.EEG REPORT documented in this encounter Plan of Treatment Not on file documented as of this encounter Procedures Procedure Name Priority Date/Time Associated Diagnosis Comments EEG Routine 12/11/2016 12:00 PM CDT Syncope, unspecified syncope type documented in this encounter Results * EEG (12/11/2016 12:00 PM CDT) 12/11/2016 12:0 0 PM CDT Narrative Procedure Note Chas Pitts MD - 12/11/2016 11:14 AM CDT [facility] Neurodiagnostics Laboratory EEG Patient:AHSAN HANEY LPatient Type: CSN:[id number]/Age:13 1955 61 Stn/Rm/Bed:[facility] Sex/Race:F Unit #:[id number] Adrs:[address] Prim Phys: Attend Phys: [facility]//Zip:[place] [address] Admit Date:December 11, 2016Disch To: Disch Date: [...] awake and drowsystates. Chas Pitts M.D. 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
--- OUTSIDE RECORDS SUMMARY | 2024-05-11 12:07 | XMS_ITS | Encounter Summary ---
Author Organization [facility] Address [address] [place] [address] Care Team Providers Care Matrix Repairer Name Role Phone Unavailable Primary Care Provider Unavailabl e Encounter Details Date Type Department Care Team (Latest Contact Info) Description 10/06/2014 3:32 PM CDT - 10/06/2014 11:59 PM CDT Hospital Encounter [facility] [address] [place] [address] Marcus Hernandez MD [address] [place] [phone] Discharge Disposition: Home or Self Care Social History Tobacco Use Types Packs/Day Years Used Date Smoking Tobacco: Every Day Cigarettes Comments:5 cigarettes per da y Alcohol Use Standard Drinks/Week Comments Yes 0 (1 standard drink = 0.6 oz pur e alcohol) occasional Sex and Gender Information Value Date Recorded Sex Assigned at Not on file Gender Identity Not on file Sexual Orientation Not on file documented as of this encounter Medications at Time of Discharge Medication Sig Dispensed Refills Start Date End Date CLOBETASOL PROPIONATE (CLOBEX SPRAY) 0.05 % LIQD 1 Squirt by Apply externally route daily. 4 oz 5 12/15/2007 10/18/2014 CLOBETASOL PROPIONATE (CLOBEX) 0.05 % LOTN 1 Applicatorful by Apply externally route daily. 4 oz 3 12/15/2007 10/18/2014 Clobetasol Propionate 0.05 % SHAMIndications:Psor iasis by Apply externally route. Use as needed for shampoo for psoriasis of scalp 1 bottle prn 02/10/2008 10/18/2014 clobetasol propionate powd 50 mg in DERMAZINC SPRAYIndications:Pso riasis Apply to affected area. Use as needed for large areas of body affected by psoriasis 1 bottle prn 02/10/2008 10/18/2014 COLACE 100 MG CAPS Take 100 mg by mouth once daily as needed 03/22/2021 enoxaparin (LOVENOX) injection Inject 30 mg subcutaneously every 12 hours. 10 0 05/31/2008 10/18/2014 eszopiclone (LUNESTA) 2 MG tablet Take 1 Tab by mouth nightly as needed for Insomnia. 15 0 01/19/2008 10/18/2014 felodipine CR 24hr (PLENDIL) 5 MG tablet Take 1 Tab by mouth daily. 30 5 04/19/2008 10/18/2014 lisinopril (PRINIVIL; ZESTRIL) 10 MG tablet Take 1 Tab by mouth daily. 30 5 04/19/2008 10/18/2014 metoprolol succinate XL 24hr (TOPROL XL) 100 MG tablet Take 1 Tab by mouth 2 times daily. 0 0 05/31/2008 10/18/2014 metoprolol succinate XL 24hr (TOPROL XL) 100 MG tablet Take 1 Tab by mouth 2 times daily. 60 5 04/19/2008 10/18/2014 oxycodone-acetaminop hen (PERCOCET) 5-325 MG tablet Take 1 Tab by mouth every 4 hours as needed for Pain. 0 0 05/31/2008 10/18/2014 documented as of this encounter Plan of Treatment Not on file documented as of this encounter Procedures Procedure Name Priority Date/Time Associated Diagnosis Comments C-REACTIVE PROTEIN Routine 10/06/2014 3: 44 PM CDT Preoperative examination, unspecified ERYTHROCYTE SEDIMENTATION RATE Routine 10/06/2014 3:44 PM CDT Preoperative examination, unspecified DIFFERENTIAL MANUAL FLUID Routine 10/06/2014 2:50 PM CDT Preoperative examination, unspecified CULTURE FLUID+GRAM STAIN Routine 10/06/2014 2:50 PM CDT Preoperative examination, unspecified CULTURE ANAEROBE Routine 10/06/2014 2:50 PM CDT Preoperative examination, unspecified CELL COUNT W DIFFERENTIAL FLUID Routine 10/06/2014 2:50 PM CDT Preoperative examination, unspecified documented in this encounter Results * (ABNORMAL) C-REACTIVE PROTEIN (10/06/2014 3:44 PM CDT) Pathologist [facility] C-Reactive Protein 1.66(H) <0.30 mg/dL 10/06/2014 5:00 PM CDT [facility] Blood BLOOD SPECIMEN / Unknown Lab Venipuncture / Unknown 10/06/2014 3:44 PM CDT 10/06/2014 4:37 PM CDT Marcus Hernandez MD LAB - CHEMISTRY ORD ERABLES Performing Organization Address [facility] Co de Phone Number [facility] [address] [place] [address] * SED RATE WESTERGREN (10/06/2014 3:44 PM CDT) Pathologist [facility] Erythrocyte Sedimentation Rate Westergren 28 0 - 30 mm/hr 10/06/2014 6:14 PM CDT [facility] Blood BLOOD SPECIMEN / Unknown Lab Venipuncture / Unknown 10/06/2014 3:44 PM CDT 10/06/2014 4:37 PM CDT Marcus Hernandez MD LAB - HEMATOLOGY OR DERABLES Performing Organization Address [facility] Co de Phone Number [facility] [address] [place] [address] * (ABNORMAL) DIFFERENTIAL MANUAL FLUID (10/06/2014 2:50 PM CDT) Pathologist [facility] Total Nucleated Cells Fluid 3,404(H) 0 - 5 x10^6/L 10/06/2014 9:43 PM CDT [facility] Neutrophils % Fluid 2 % 10/06/2014 9:43 PM CDT [facility] Lymphocytes % Fluid 84 % 10/06/2014 9:43 PM CDT [facility] Monocytes % Fluid 12 % 10/06/2014 9:43 PM CDT [facility] Mesothelial Cell Fluid 2 % 10/06/2014 9:43 PM CDT [facility] Cells Counted Fluid 100 10/06/2014 9:43 PM CDT [facility] Fluid SYNOVIAL FLUID / Unknown 10/06/2014 2:50 PM CDT 10/06/2014 4:37 PM CDT Marcus Hernandez MD LAB - BODY FLUID OR DERABLES Performing Organization Address [facility] Co de Phone Number [facility] [address] [place] [address] * CELL COUNT W DIFFERENTIAL FLUID (10/06/2014 2:50 PM CDT) Fluid Type Synovial 10/06/2014 5:09 PM CDT [facility] Character Fluid Turbid 10/06/2014 5:09 PM CDT [facility] Color Fluid Yellow 10/06/2014 5:09 PM CDT [facility] Total Nucleated Cells Fluid 3,404 x10^6/L 10/06/2014 5:09 PM CDT [facility] RBC Fluid 7,000 x10^6/L 10/06/2014 5:09 PM CDT [facility] Comment Fluid Manual Diff to follow 10/06/2014 5:09 PM CDT [facility] Fluid SYNOVIAL FLUID / Unknown 10/06/2014 2:50 PM CDT 10/06/2014 4:37 PM CDT Marcus Hernandez MD LAB - BODY FLUID OR DERABLES Performing Organization Address City/[facility] Co de Phone Number [facility] [address] [place] [address] * CULTURE FLUID+GRAM STAIN (10/06/2014 2:50 PM CDT) Culture No Growth BIANKA 10/13/2014 12:23 PM CDT [facility] Gram Stain Light White blood cells 10/13/2014 12:23 PM CDT [facility] Gram Stain No organisms seen 10/13/2014 12:23 PM CDT [facility] Fluid SYNOVIAL FLUID / Unknown 10/06/2014 2:50 PM CDT 10/06/2014 4:39 PM CDT Marcus Hernandez MD LAB - MICROBIOLOGY ORDERABLES Performing Organization Address City/[facility]/ZIP Co de Phone Number [facility] [address] [place] [address], [facility] [phone] * CULTURE ANAEROBE (10/06/2014 2:50 PM CDT) Culture No anaerobic organisms isolated BIANKA 10/14/2014 4:14 PM CDT [facility] Microbiology SYNOVIAL FLUID / Unknown 10/06/2014 2:50 PM CDT 10/06/2014 4:39 PM CDT Marcus Hernandez MD LAB - MICROBIOLOGY ORDERABLES Performing Organization Address [facility] Co de Phone Number [facility] [address] [place] [address], [facility] [phone] documented in this encounter Visit Diagnoses Diagnosis Preoperative examination, unspecified- Primary documented in this encounter Additional Health Concerns Infection Onset Date Last Indicated Resolved Time MRSA 01/23/2008 01/23/2008 03/16/2021 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
--- OUTSIDE RECORDS SUMMARY | 2024-05-11 12:07 | XMS_ITS | Encounter Summary ---
Author Organization [facility] Address [address] [place] [address] Care Team Providers Care Aging Room Operator Name Role Phone Summer Green RN Unavailable [phone] Jacki Cabrera MD Primary Care Provider Reason for Visit * Auth/Cert Specialty Diagnoses / Procedures Referred By Calvin bentley Referred To Contact Diagnoses Diagnosis unknown Diagnosis unknown [R69] Procedures LAMINECTOMY THORACIC Referral ID Status Reason Start Date Expiration Date Visits Re quested Visits Authorized [id number] 1 1 Encounter Details Date Type Department Care Team (Late st Contact Info) Description 03/16/2021 10:46 AM ELEC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 Anesthesia Event [facility] [address] [place] [address] Jaylen Cherry MD [address] [facility] ANESTHESIA DEPT [place], [place] [id number] Anesthesia Record Procedure Summary Procedure Name Responsible Anesthesiologist Anesthesia Start Time Anesthesia Stop Time THORACIC ELEVEN - THORACIC TWELVE LAMINECTOMY FOR PLACEMENT OF DORSAL COLUMN STIMULATION SYSTEM AND PLACEMENT OF THE BATTERY IN THE RIGHT LOWER LUMBER REGION Jaylen Cherry MD 03/16/21 1046 03/16/21 1353 Events Date Time Event Comment 03/16/2021 0939 1046 An Start 1049 An Start Data 1057 PT Reassessment 1057 Induction 1057 An Intubation 1119 Timeout Anesthesia part icipated in timeout at the time documented in the record by nursing. 1348 Extubation 1349 an stop data 1349 Electnc Sig This record is electronically signed by the providers listed under staff. 1349 ANPTO2 1353 An Stop Meds Name Total midazolam 2 mg/2mL injection 2 mg fentaNYL 100 mcg/2mL injection 100 mcg lidocaine 2% injection (20 mg/ml) 100 mg propofol 200mg/20mL injection 150 mg propofol 200mg/20mL injection 736.56 mg rocuronium 50mg/5mL injection 10 mg dexamethasone 4 mg/ml injection 8 mg ondansetron 4 mg/2mL injection 4 mg tranexamic acid 1000mg /10mL bolus 1,000 mg ceFAZolin (Ancef) 2,000 mg in 50 ml IVPB 2 g ePHEDrine injection 50 mg/ml 50 mg dexMEDETOmidine (PRECEDEX) 200 mcg/2ml i njection 20 mcg lactated ringers infusion 1,200 mL * Agents Name Insp. N2O Exp. Sevoflurane Exp. N2O O2 Insp. Sevoflurane N2O * Blood No blood administrations on file. Lines, Drains, and Airways Type Details Placement Removal Peripheral IV Date: 03/16/21; Time : 0857; Orientation: Left, Posterior; Placed By: Janis Draper RN; Tolerance: Well 03/16/21 0857 by Sherri Verdin RN 03/16/21 1606 by Nicolasa Robb, TESHA ETT Date: 03/16/21; Time : 1117; Placed By: MATHEW Haji; Vent: easy mask; Induction: Rapid Sequence; Blade Type: Benito; Blade Size: 3; Laryngoscopy View: Grade 1 (full cords); Intubation Adjuncts: Stylet; Tube: Endotracheal Tube; Placement: Oral; Tube Type: Cuffed-inflated; Tube Size(mm): 7 MM; Depth of Insertion: 22 CM; Measured From: teeth; Cuff Infated: Air; Cuff Vol(mL): 5 mL; Verified By: Direct visualization, Bilateral breath sounds, Chest Auscultation, CO2 Monitor 03/16/21 1117 by Ian Vásquez APRN-CRNA 03/16/21 1348 by Ian Vásquez APRN-CRNA Procedural Site (Incision) 03/16/21; 1120; Medial; Back; 03/16/21; 2302 03/16/21 1120 by Jesika Mckeon RN 03/16/21 2302 by Generic, Auto Release Procedural Site (Incision) 03/16/21; 1206; Right, Lower; Back; 03/16/21; 2302 03/16/21 1206 by Malini Rosado RN 03/16/21 2302 by Generic, Auto Release documented in this [...] as of this encounter Progress Notes * Rickey Hollis MD - 03/16/2021 5:21 PM CST ANESTHESIA POSTOP EVALUATION NOTE Procedure: THORACIC ELEVEN - THORACIC TWELVE LAMINECTOMY FOR PLACEMENT OF DORSAL COLUMN STIMULATIONSYSTEM AND PLACEMENT OF THE BATTERY IN THE RIGHT LOWER LUMBER REGION Karolina Ramos is a 65 year old female Patient Vitals for the past 6 hrs: BP Temp Pulse Resp SpO2 Pain Rating Score #1 Pain Scale/Observation 03/16/21 1350 129/50 -- -- -- 93 % -- -- 03/16/21 1355 138/68 96.8 ??F (36 ??C) 86 25 96 % 0 F;B 03/16/21 1400 124/71 -- 80 16 100 % -- -- 03/16/21 1405 115/58 -- 77 15 99 % -- -- 03/16/21 1409 -- -- -- -- -- 5 N 03/16/21 1410 115/61 -- 79 20 97 % -- -- 03/16/21 1415 128/68 -- 78 14 99 % -- -- 03/16/21 1416 -- -- -- -- -- 6 N 03/16/21 1420 130/68 -- 72 13 100 % -- -- 03/16/21 1425 145/80 -- 72 17 100 % -- -- 03/16/21 1430 138/65 -- 74 11 93 % -- -- 03/16/21 1435 142/78 -- 75 14 (!) 87 % 0 F;B 03/16/21 1440 138/75 -- 67 13 98 % -- -- 03/16/21 1445 130/85 -- 66 12 97 % -- -- 03/16/21 1450 139/77 -- 69 16 95 % -- -- 03/16/21 1455 133/62 -- 68 17 90 % 4 N 03/16/21 1500 125/79 -- 70 12 95 % -- -- 03/16/21 1505 137/75 -- 64 14 93 % -- -- 03/16/21 1516 138/84 98 ??F (36.7 ??C) 65 18 95 % 4 N 03/16/21 1555 135/71 -- 89 18 94 % 4 N Anesthesia Type: general ETT Pre-op Diagnosis Codes: * Diagnosis unknown [R69] Mental Status: awake and sufficiently recovered from acute administration of anesthesia to participate in the evaluation Neuro Status: No numbess, tingling or visual disturbances Respiratory Function: natural Cardiac Function: stable Postop Pain: acceptable to the patient Postop Hydration: adequate Postop Nausea: none Assessment: no apparent anesthetic complications Patient Disposition: Release from Anesthesia Care COMPLICATIONS: No complications documented. 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 * KangLionel, DO - 03/16/2021 9:37 AM CST ANESTHESIA PREOPERATIVE EVALUATION NOTE Procedure: THORACIC ELEVEN - THORACIC TWELVE LAMINECTOMY FOR PLACEMENT OF DORSAL COLUMN STIMULATIONSYSTEM AND PLACEMENT OF THE BATTERY IN THE RIGHT LOWER LUMBER REGION NPO status: Since Midnight; *Except Oral meds with H2O; YES Tobacco Since Midnight (03/16/2021 8:51AM) Last Solids/Dairy: 1900 (03/16/2021 8:51 AM) Last Clear Liquids: 0630 (03/16/2021 8:51 AM) Vitals: Patient Vitals for the past 6 hrs: BP Temp Pulse Resp SpO2 Pain Rating Score #1 03/16/21 0850 130/81 98.7 ??F (37.1 ??C) 69 18 94 % 1 ANESTHESIA PRE-EVALUATION NOTE The patient is a current non-smoker. Physical Exam: Orientation X3 Airway/Mallampati Score: II Mouth Opening Distance: 3 fingerwidths Neck ROM: limited TM Distance: < 3 FB Teeth: dentures/partials upper Heart: normal - S1 S2 Lungs: clear to ausculation bilaterally Abdomen Exam: obese Review of Systems: History of anesthetic complications: Yes PONV: Yes GERD: Yes, well controlled ANESTHESIA PLAN ASA Score: 3 (Class II obesity, HTN, ERROL, RA, depression.) NPO Status: No solids since midnight and No liquids within 2 hours Anesthesia Plan: general ETT Planned Induction: intravenous Planned Postop Destination: PACU Anesthetic plan was discussed with: patient Anesthetic Plan discussion was: Consented BMI, Height, Weight Tobacco History Estimated body mass index is 39.84 kg/m?? as calculated from the following: Height as of this encounter: 1.727 m (5' 8 ). Weight as of this encounter: 118.8 kg (262 lb). Social History Tobacco Use Smoking Status Current Every Day Smoker ??? Packs/day: 1.00 ??? Years: 19.00 ??? Pack years: 19.00 ??? Types: Cigarettes ??? Last attempt to quit: 02/17/2013 ??? Years since quittin.0 Smokeless Tobacco Never Used Tobacco Comment a couple cigarettes a day Alcohol History Drug History Social History Substance and Sexual Activity Alcohol Use No Comment: occasional Social History Substance and Sexual Activity Drug Use No Outpatient Medications: Inpatient Medications: Outpatient Medications Marked as Taking for the 03/16/21 encounter (Hospital Encounter) Medication Sig Last Dose ??? baclofen 10 mg at bedtime 03/15/2021 at Unknown time ??? busPIRone 03/16/2021 at 0630 ??? calcitriol Take 0.25 mcg by mouth once daily 03/16/2021 at 0630 ??? Colace Take 100 mg by mouth once daily as needed Past Week at Unknown time ??? DULoxetine Take 60 mg by mouth 2 times daily 03/16/2021 at 0630 ??? Vitamin D2 Take 50,000 Units by mouth every 7 days Past Month at Unknown time ??? escitalopram 10 mg once daily 03/16/2021 at 0630 ??? folic acid Take 1 mg by mouth once daily 03/16/2021 at 0630 ??? gabapentin 600 mg 3 times daily 03/16/2021 at 0630 ??? HYDROcodone-acetaminophen Take 15 mL by mouth every 4 hours as needed 03/15/2021 at Unknown time ??? lisinopril-hydroCHLOROthiazide 1 tablet 03/16/2021 at 0630 ??? lovastatin Take 20 mg by mouth at bedtime Past Week at Unknown time ??? methotrexate Take 20 mg by mouth every 7 days Takes 5 tablets Reasons: Psoriasis associated with Arthritis 03/14/2021 at Unknown time ??? multivitamin with iron Take 1 Tab by mouth once daily 03/16/2021 at 0630 ??? omeprazole 20 mg at bedtime 03/15/2021 at Unknown time ??? predniSONE 5 mg once daily 03/16/2021 at 0630 ??? sulfaSALAzine 500 mg 2 times daily 03/16/2021 at 0630 ??? Taltz 1 Dose Past Week at Unknown time ??? traZODone 200 mg at bedtime 03/15/2021 at Unknown time ??? Xtampza ER 18 mg 03/16/2021 at 0630 Current Facility-Administered Medications Medication Dose Last Admin ??? lactated ringers New Bag at 03/16/21 0857 ??? lidocaine 0.2 mL 0.2 mL at 03/16/21 0857 Allergies: Allergies Allergen Reactions ??? Penicillins Shortness of Breath, Rash and Unknown ??? Metformin Nausea and/or Vomiting Relevant Problems No relevant active problems Problem List: Patient Active Problem List Diagnosis Date Noted ??? Sleep apnea 07/26/2009 ??? S/P TKR (total knee replacement) 04/15/2008 ??? Generalized anxiety disorder 12/12/2007 ??? Depression 12/12/2007 ??? Hypertension 12/12/2007 ??? GERD (gastroesophageal reflux disease) 12/12/2007 ??? Psoriasis 12/12/2007 ??? Rheumatoid arthritis 12/12/2007 ??? MRSA (Methicillin Resistant Staphylococcus Aureus) 12/12/2007 2006 ??? ERROL (obstructive sleep apnea) 12/12/2007 CPAP ??? Other screening mammogram 12/12/2007 06 ??? Pap smear, high-risk (screening, no prior abnormality) 12/12/2007 hyst Medical History: Past Medical History: Diagnosis Date ??? Constipation ??? Depression ??? Edema bilateral ankles ??? GERD (gastroesophageal reflux disease) ??? History of diabetes mellitus ??? Hypertension ??? MRSA (methicillin resistant Staphylococcus aureus) post right foot surgery ??? Overweight, obesity and other hyperalimentation ??? Psoriasis right leg, both elbows, scalp ??? Psoriatic arthritis ??? Sleep apnea uses cpap machine Surgical History: Past Surgical History: Procedure Laterality Date ??? ANKLE FRACTURE TX 1999 right ??? ANKLE FRACTURE TX 2000 hardware removed ??? Arthroplasty 2006 left ??? Arthroplasty 2008 right knee,2008 ??? Back Surgery 1995 [id number] ??? Breast Reduction 1994 bilat ??? Bunionectomy 2007 right ??? Bunionectomy 1993 left ??? Hysterectomy 1988 vaginal ??? KNEE ARTHROPLASTY, REVISION Right 11/03/2014 Right; ARTHROPLASTY TOTAL KNEE REVISION HINGED KNEE ??? Knee Arthroscopy 1995 left ??? Knee Arthroscopy 1996 right ??? Salpingo-oophorectomy 2004 bilat ??? TUBAL LIGATION, LAPAROSCOPIC 1976 Covid Vaccine: Yes, Completed Series Lab Results: Recent Labs Base Name 03/16/21 0847 [id number]* SPECIMENTYPE Venous No results found for requested labs within last 120 days. No results found for requested labs within last 120 days. 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 Procedure: intubation (78505). Procedure Section: Sedation: under general anesthesia. Indications for Airway Management: anesthesia Induction: rapid sequence Patient Position: supine Mask Ventilation: easy. Blade Type: Benito Blade Size: 3 Laryngoscopy View: grade 1 (full cords) Intubation Adjuncts: stylet Tube: endotracheal tube Placement: oral Tube type: cuff - inflated Tube Size (MM): 7 Depth of Insertion (CM): 22 Measured From: teeth Cuff volume (mL): 5 Cuff Inflated With: air Placement Verified By: direct visualization, bilateral breath sounds, chest auscultation and CO2 monitor Tube secured with: adhesive tape. Dentition unchanged? Yes Staff Section Anesthesia Provider: Ian Vásquez APRN-CRNA, Performed the procedure 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 documented in this encounter Miscellaneous Notes * Anesthesia Transfer of Care - Ian Vásquez APRN-CRNA - 03/16/2021 1:53 PM CST ANESTHESIA TRANSFER OF CARE NOTE Today's Date: 03/16/2021 Date of : 1955 Patient: Karolina Ramos Procedure(s): THORACIC ELEVEN - THORACIC TWELVE LAMINECTOMY FOR PLACEMENT OF DORSAL COLUMN STIMULATION SYSTEM ANDPLACEMENT OF THE BATTERY IN THE RIGHT LOWER LUMBER REGION Surgeon(s): Primary: William Hammonds MD Preop Diagnosis: Pre-op Diagnois: * Diagnosis unknown [R69] Pre-op Meds (From admission, onward) Start Stop Status Route Frequency Ordered 03/16/21 0900 acetaminophen (Tylenol) tablet 1,000 mg 03/16 0857 Completed PO ONCE 03/16/21 0829 03/16/21 1045 ceFAZolin (Ancef) 2,000 mg in 50 ml IVPB 03/16 1104 Completed IV ONCE 03/16/21 1010 03/16/21 0900 lactated ringers infusion -- Verified IV PRE-OP CONTINUOUS 03/16/2182803/16/21828 lidocaine PF (Xylocaine MPF) 1 % injection 0.2 mL -- Verified INFILTRATION PRE-OP MULTIPLE 03/16/21828 Post-op Diagnosis: * Diagnosis unknown [R69] . Allergies Allergen Reactions ??? Penicillins Shortness of Breath, Rash and Unknown ??? Metformin Nausea and/or Vomiting Vitals: No data found. Lines, Drains, and Airways Type Details Placement Removal Peripheral IV Date: 03/16/21; Time: 856; Orientation: Left, Posterior; Location: Wrist; Placed By:Janis Draper RN; Gauge: 20 Gauge; Locals: Trans Dermal; Tolerance: Well 03/16/21856 by Sherri Verdin RN ETT Date: 03/16/21; Time: 1116; Placed By: MATHEW Haji; Vent: easy mask; Induction: Rapid Sequence; Blade Type: Benito; Blade Size: 3; Laryngoscopy View: Grade 1 (full cords); Intubation Adjuncts: Stylet; Tube: Endotracheal Tube; Placement: Oral; Tube Type: Cuffed-inflated; Tube Size(mm): 7 MM; Depth of Insertion: 22 CM; Measured From: teeth; Cuff Infated: Air; Cuff Vol(mL): 5 mL; Verified By: Direct visualization, Bilateral breath sounds, Chest Auscultation, CO2 Monitor 03/16/21 111 by Ian Vásquez APRN-CRNA 03/16/21 1348 by Ian Vásquez APRN-CRNA Intraprocedure I/O Totals Intake lactated ringers infusion 1200.00 mL ceFAZolin (Ancef) 2,000 mg in 50 ml IVPB 50.00 mL Total Intake 1250 mL Output Estimated Blood Loss 20 mL Total Output 20 mL Net Net Volume 1230 mL Patient Transfer Location: PACU Transport Airway: spontaneous respirations, oral airway, repositioning of airway and supplemental O2 Complications: None Handoff Given? Yes Checklist or Protocol - The levine handoff elements that must be included in the transfer of care checklist include: 1. Identification of patient. 2. Identification of responsible practitioner (PACU nurse or advanced practitioner). 3. Discussion of pertinent medical history. 4. Discussion of the surgical/procedure course (procedure, reason for surgery, procedure performed). 5. Intraoperative anesthetic management and issue/concerns. 6. Expectations/Plans for the early post-procedure period. 7. Opportunity for questions and acknowledgement of understanding of report from the receiving PACUteam. MATHEW Haji 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 documented in this encounter Plan of Treatment Not on file documented as of this encounter Procedures Procedure Name Priority Date/Time Associated Diagnosis Comments ENDOTRACHEAL TUBE NOTE Routine 03/16/2021 11:16 AM ELEC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 documented in this encounter Results * ETT LINE PERFORMABLE (03/16/2021 11:16 AM ELEC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) Narrative Ian Vásquez APRN-CRNA - 03/16/2021 11:16 AM ELEC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 Ian Vásquez APRN-CRNA ? 03/16/2021 11:17 AM Endotracheal Tube Placement: ? Patient Location: OR. Procedure: intubation (34647). Procedure Section: ?? Sedation: under general anesthesia. [...] Lionel Kang DO GENERAL ANESTHESIA O RDERABLES documented in this encounter Visit Diagnoses Not on filedocumented in this encounter Administered Medications Inactive Administered Medications - up to 3 most recent administrations Medication Order MAR Action Action Date Dose Rate Site ceFAZolin (Ancef) 2,000 mg in 50 ml IVPB 2,000 mg (2 g), at 100 mL/hr, Intravenous, ONCE, 1 dose, On Rhoda 03/16/21 at 1045, Indication for anti-infective therapy: Surgical prophylaxis $ Given 03/16/2021 11:04 AM ELEC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 2 g dexAMETHasone (Decadron) injection Intravenous, PRN, Starting on Rhoda 03/16/21 at 1054, Until Rhoda 03/16/21 at 1349, Anesthesia Intra-op $ Given 03/16/2021 10:54 AM ELEC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 8 mg dexmedeTOMIDine (Precedex) injection Intravenous, PRN, Starting on Rhoda 03/16/21 at 1125, Until Rhoda 03/16/21 at 1349, Anesthesia Intra-op $ Given 03/16/2021 11:25 AM ELEC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 20 mcg ePHEDrine injection Intravenous, PRN, Starting on Rhoda 03/16/21 at 1115, Until Rhoda 03/16/21 at 1349, Anesthesia Intra-op $ Given 03/16/2021 11:15 AM ELEC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 25 mg $ Given 03/16/2021 11:04 AM ELEC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 25 mg fentaNYL (PF) (Sublimaze) injection Intravenous, PRN, Starting on Rhoda 03/16/21 at 1119, Until Rhoda 03/16/21 at 1349, Anesthesia Intra-op $ Given 03/16/2021 11:19 AM ELEC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 50 mcg $ Given 03/16/2021 11:05 AM ELEC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 50 mcg lactated ringers infusion Intravenous, CONTINUOUS PRN, Starting on Rhoda 03/16/21 at 1041, Until Rhoda 03/16/21 at 1349, Anesthesia Intra-op $ New Bag/Syringe 03/16/2021 12:37 PM CS T $ New Bag/Syringe 03/16/2021 10:41 AM ELEC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 lidocaine hcl (PF) (Xylocaine MPF) 2 % injection Intravenous, PRN, Starting on Rhoda 03/16/21 at 1054, Until Rhoda 03/16/21 at 1349, Anesthesia Intra-op $ Given 03/16/2021 10:54 AM ELEC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 100 mg midazolam (Versed) injection Intravenous, PRN, Starting on Rhoda 03/16/21 at 1043, Until Rhoda 03/16/21 at 1349, Anesthesia Intra-op $ Given 03/16/2021 10:43 AM ELEC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 2 mg Ondansetron HCl (Zofran) injection Intravenous, PRN, Starting on Rhoda 03/16/21 at 1119, Until Rhoda 03/16/21 at 1349, Anesthesia Intra-op $ Given 03/16/2021 11:19 AM ELEC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 4 mg propofol (Diprivan) injection Intravenous, CONTINUOUS PRN, Starting on Rhoda 03/16/21 at 1108, Until Rhoda 03/16/21 at 1349, Anesthesia Intra-op $ New Bag/Syringe 03/16/2021 11:08 AM ELEC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 50 mcg/kg/min 35.64 mL/hr propofol (Diprivan) injection Intravenous, PRN, Starting on Rhoda 03/16/21 at 1054, Until Rhoda 03/16/21 at 1349, Anesthesia Intra-op $ Given 03/16/2021 10:54 AM ELEC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 150 mg rocuronium (Zemuron) injection Intravenous, PRN, Starting on Rhoda 03/16/21 at 1054, Until Rhoda 03/16/21 at 1349, Anesthesia Intra-op $ Given 03/16/2021 10:54 AM ELEC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 10 mg tranexamic acid (Cyklokapron) injection Intravenous, PRN, Starting on Rhoda 03/16/21 at 1053, Until Rhoda 03/16/21 at 1349, Anesthesia Intra-op $ Given 03/16/2021 10:53 AM ELEC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 1,000 mg documented in this encounter Additional Health Concerns Infection Onset Date Last Indicated Resolved Time MRSA Hx 03/16/2021 03/16/2021 documented as of this encounter Care Teams Aging Room Operator Relationship Specialty Start Date End Date Jacki Cabrera MD PCP - General Internal Medicine 11/04/14 Summer Green, RN Physician Chief Of Pathology 11/03/14 documented as of this encounter
--- OUTSIDE RECORDS SUMMARY | 2024-05-11 12:07 | XMS_ITS | Referral Summary ---
Author Organization [facility] [employer] Address [address] [place] [address] Care Team Providers Care Houseperson Name Role Phone Summer Green RN Unavailable [phone] Jacki Cabrera MD Primary Care Provider Source Comments [facility],non-owned Affiliates and Associated Physician Practices is amultiple site organization consisting of ambulatory clinics and hospital sitesin [place], [place], [place] and [place]. This disclosure is being madepursuant to the Care Everywhere program and may not contain all information available regarding this patient. Last updated 18.[facility] [employer] Allergies Active Allergy Reactions Criticality Noted Date [...] 18+YR 08/15/2020 DT 04/23/2002 PNEUMOCOCCAL PPSV23 08/13/2006 Social History Tobacco Use Types Packs/Day Years [...] Comments Blood Pressure 151/91 04/03/2021 11:22 AM DISPOSITION CLERK Pulse 116 04/03/2021 11:22 AM DISPOSITION CLERK Temperature 36.8 ??C (98.2 ??F) 03/22/2021 8:21 AM CS T Respiratory Rate 18 03/22/2021 8:21 AM DISPOSITION CLERK Oxygen Saturation 96% 04/03/2021 11:22 AM DISPOSITION CLERK Inhaled Oxygen Concentration 100% 05/28/2008 1 :51 PM DISPOSITION CLERK Weight 118.8 kg (262 lb) 04/03/2021 11:22 AM DISPOSITION CLERK Height 172.7 cm (5' 8 ) 04/03/2021 11:22 AM DISPOSITION CLERK Body Mass Index 39.84 04/03/2021 11:22 AM DISPOSITION CLERK Functional Status Functional Status Response Date of Assess ment Is person deaf or have serious hearing difficult y? No 03/22/2021 Is person blind or have serious difficulty seein g? No 03/22/2021 Does person have serious dif ficulty walking/climbing stairs? No 03/22/2021 Does person have difficulty dressing/bathing? No 03/22/2021 Does person have difficulty doing errands alone? No 03/22/2021 Cognitive Status Response Date of Assess ent Does person have difficulty concentrating/remembering/making decisions? No 03/22/2021 Plan of Treatment Not on file Medical Devices Implanted Type Area Etcher Machine Device Identifier Shelf Expiration Date Model / Serial / Lot Elliott Bone Palacos Sgl 1 X 40 Implanted:Qt y: 2 on 11/03/2014 by Marcus Hernandez MD at [facility] Right: Knee [employer] 01/04/2018 [id number] / / [id number] Size 5 Right A/P 62mm, M/L 70mm Legion Hk Femoral Assembly Implanted:Qt y: 1 on 11/03/2014 by Marcus Hernandez MD at [facility] Right: Knee 02/03/2021 [id number] / / [id number] Elliott Bone Palacos R Implanted:Qt y: 2 on 11/03/2014 by Marcus Hernandez MD at [facility] Right: Knee [employer] 05/06/2019 [id number] / / [id number] Legion Hk Hinge Knee Tibial Baseplate Implanted:Qt y: 1 on 11/03/2014 by Marcus Hernandez MD at [facility] Right: Knee 01/04/2023 [id number] / / [id number] 18mm Sage And Sleeve Kit Implanted:Qt y: 1 on 11/03/2014 by Marcus Hernandez MD at [facility] Right: Knee 01/04/2022 [id number] / / [id number] Size 4-5 Right 18mm Locking Screw Included Legion Hk Guided Motion Articular Insert Implanted:Qt y: 1 on 11/03/2014 by Marcus Hernandez MD at [facility] Right: Knee 11/03/2020 [id number] / / [id number] Straight 14mm X 160mm Legion Pressfit Stem Implanted:Qt y: 1 on 11/03/2014 by Marcus Hernandez MD at [facility] Right: Knee 09/03/2024 [id number] / / [id number] 5mm Size 5 Legion Hk Implanted:Qt y: 1 on 11/03/2014 by Marcus Hernandez MD at [facility] Right: Knee 08/05/2023 [id number] / / [id number] Straight 18mm X 160mm Legion Pressfit Stem Implanted:Qt y: 1 on 11/03/2014 by Marcus Hernandez MD at [facility] Right: Knee 05/06/2024 [id number] / / [id number] 10mm Size 5 Legion Hk Implanted:Qt y: 1 on 11/03/2014 by Marcus Hernandez MD at [facility] Right: Knee 05/06/2023 [id number] / / [id number] Lead Nrstm 60cm Penta 3mm Pdl 16 Chnl - [id number] Implanted:Qt y: 1 on 03/16/2021 by William Hammonds MD at [facility] Spine Thoracic [employer] 09/23/2022 [id number] / [id number] / Slnt Dura Duraseal Pg Trilysine Amine 5 Implanted:Qt y: 1 on 03/16/2021 by William Hammonds MD at [facility] Spine Thoracic [employer] Joel [id number] / / [id number] Description:BRIE Cable Nrstm Multile[employer] Trl - [id number] Implanted:Qt y: 1 on 03/16/2021 by William Hammonds MD at [facility] Spine Thoracic [employer] 11/02/2022 [id number] / [id number] / Description:BRIE Gntr Nrstm 1.95inx2.19i n Proclaim Elt - [id number] Implanted:Qt y: 1 on 03/16/2021 by William Hammonds MD at [facility] Spine Thoracic [employer] 02/14/2023 [id number] / [id number] / Description:JJ Procedures Procedure Name Priority Date/Time Associated Diagnosis Comments BASIC METABOLIC PANEL (CALCIUM TOTAL) STAT 03/20/2021 2:53 AM DISPOSITION CLERK Acute midline thoracic back pain from Last 3 Months or Most Recently Relevant to Health Maintenance Results * (ABNORMAL) BASIC METABOLIC PANEL (CALCIUM TOTAL) (03/20/2021 2:53 AM DISPOSITION CLERK) BUN 10 7 - 26 mg/dL 03/20/2021 3:21 AM [facility] Creatinine 0.65 0.56 - 0.96 mg/dL 03/20/2021 3:21 AM [facility] Sodium 142 136 - 145 mmol/L 03/20/2021 3:21 AM [facility] Potassium 3.9 3.5 - 4.5 mmol/L 03/20/2021 3:21 AM [facility] Chloride 104 98 - 107 mmol/L 03/20/2021 3:21 AM [facility] CO2 28 22 - 29 mmol/L 03/20/2021 3:21 AM [facility] Glucose 153(H) 70 - 115 mg/dL 03/20/2021 3:21 AM [facility] Calcium 10.9(H) 8.4 - 10.2 mg/dL 03/20/2021 3:21 AM [facility] Anion Gap 14 8 - 18 03/20/2021 3:21 AM [facility] BUN/Creatinine Ratio 15 7 - 23 03/20/2021 3:21 AM [facility] Osmolality Calculated 296 270 - 300 mOsm/kg 03/20/2021 3:21 AM [facility] eGFR by CKD-EPI >90 >=90 mL/min/1.7 3 m2 03/20/2021 3:21 AM [facility] Blood BLOOD SPECIMEN / Unknown Venipuncture / Unknown 03/20/2021 2:53 AM DISPOSITION CLERK 03/20/2021 2:56 AM DISPOSITION CLERK Reji Heller MD LAB - CHEMISTRY O RDERABLES [facility] [address] [place] [id number], [facility] [phone] from Last 3 Months or Most Recently Relevant to Health Maintenance Additional Health Concerns Infection Onset Date Last Indicated MRSA Hx 03/16/2021 03/16/2021 Advance Directives Documents on File Type Date Recorded Patient Data Processing Clerk Expl anation Adv Directive/Living Will/POA 11/08/2014 10:34 PM Adv Directive/Living Will/POA 11/03/2014 5:00 AM Power of Stator Tester 06/02/2008 9:23 AM Adv Directive/Living Will/POA 06/02/2008 [...] 12:49 PM 04/18/2008 1:25 AM Care Teams Houseperson Relationship Specialty Start Date End Date Jacki Cabrera MD PCP - General Internal Medicine 11/04/14 Summer Green, RN [employer] 11/03/14
--- OUTSIDE RECORDS SUMMARY | 2024-05-11 12:07 | XMS_ITS | Encounter Summary ---
Author Organization [facility] Address [address] [place] [address] Care Team Providers Care Contour Stitcher Name Role Phone Unavailable Primary Care Provider Unavailabl e Encounter Details Date Type Department Care Team (Latest Contact Info) Description 10/18/2014 1:51 PM CDT - 10/18/2014 11:59 PM CDT Hospital Encounter [facility] Imaging Services - Radiology [address] [place] [address] Marcus Hernandez MD [address] [place] [address] Discharge Disposition: Home or Self Care Social [...] 11/07/2014 03/16/2021 documented as of this encounter Plan of Treatment Not on file documented as of this encounter Procedures Procedure Name Priority Date/Time Associated Diagnosis Comments XR CHEST 2VW Routine 10/18/2014 1:54 PM CDT Other specified pre-operative examination documented in [...] disease. Marcus Hernandez MD DIAGNOSTIC IMAGING ORDERABLES documented in this encounter Visit Diagnoses Not on filedocumented in this encounter Additional Health Concerns Infection Onset Date Last Indicated Resolved Time MRSA 01/23/2008 01/23/2008 03/16/2021 8:30 AM SPEECH LANGUAGE SPECIALIST documented as of this encounter
--- OUTSIDE RECORDS SUMMARY | 2024-05-11 12:07 | XMS_ITS | Encounter Summary ---
Author Organization [facility] Address [address] [place] [address] Care Team Providers Care Test Skein Winder Name Role Phone NormaFlynnSummer K RN Unavailable Jacki Cabrera MD Primary Care Provider Encounter Details Date Type Department Care Team (Late st Contact Info) Description 05/01/2023 Lab Requisition [facility] - Pathology Lab [address] [place] [address] Vaughn Colunga MD [address] [address] Illness, unspecified Social History Tobacco Use Types Packs/Day Years [...] No 03/22/2021 documented as of this encounter Plan of Treatment Not on file documented as of this encounter Procedures Procedure Name Priority Date/Time Associated Diagnosis Comments PATHOLOGY TISSUE Routine 04/26/2023 10:0 7 AM SUPERVISOR WALL MIRROR DEPARTMENT Illness, unspecified documented in this encounter Results * PATHOLOGY TISSUE (04/26/2023 10:07 AM SUPERVISOR WALL MIRROR DEPARTMENT) Case Report Surgical Pathology Report ? Case: [id number] ? Authorizing Provider: ??Luis Colunga MD ??Collected: ? 04/26/2023 10:07 AM ? Ordering Location: ? [facility] ? Received: ?05/01/2023 03:34 PM ? Pathologist: ? Chaya Walton MD ? Specimen: ?Slide Consultation, Lymph node ? 05/02/2023 10:40 AM [facility] Final Diagnosis Lymph node, left axilla, needle core biopsy: - Follicular lymphoma, as sampled - See description 05/02/2023 10:40 AM [facility] Microscopic Description and Comment Sections demonstrate thin cores of lymphoid tissue with a vaguely nodular architecture. No germinal centers are present, but rather, the majority of cells are small and slightly cleaved/irregular. No necrosis or significant large cell infiltrate is present in the sampled tissue. To evaluate the immunoarchitecture, immunohistochemistry is performed at the [facility] Department of Pathology. The nodular areas consist of germinal center B-cells that express CD10, BCL-6, and CD20. These cells show aberrant co-expression of BCL-2. CD21 highlights that these cells are mostly localized in follicular dendritic cell meshworks. CD3 shows admixed small T-cells. Controls are appropriately reactive. Per report, flow cytometry ([facility], [address], [address], [place], [address]) shows 8% [id number] monoclonal B-cells (lambda light chain-restricted). In summary, this sampling of the left axillary lymph node shows involvement by follicular lymphoma. Grading of follicular lymphoma is recommended to be performed on an excisional biopsy specimen. Clinical correlation is advised. 05/02/2023 10:40 AM [facility] Clinical History 68 year old woman with FDG avid left axillary lymph nodes. 05/02/2023 10:40 AM [facility] Materials Received Received are 3 slides and 1 block labeled [id number] along with a copy of the outside pathology report. [place] [address]. All original materials are returned to the referring institution, along with a copy of our final report. 05/02/2023 10:40 AM [facility] Pathologist Location at [facility] 05/02/2023 10:40 AM [facility] Disclaimer The performance characteristics of all immunohistochemical and indirect immunofluorescence stains (if any) cited in this report were determined by the Histopathology Laboratory of [facility]. Some of these tests were developed by [...] the attending (teaching) pathologist. 05/02/2023 10:40 AM SUPERVISOR WALL MIRROR DEPARTMENT [facility] Embedded Images 05/02/2023 10:40 AM [facility] Pathology/Cytolo gy SURGICAL PATHOLOGY CONSULTATION AND REPORT ON REFERRED SLIDES PREPARED ELSEWHERE / Unknown 04/26/2023 10:07 AM SUPERVISOR WALL MIR[employer] DEPARTMENT 05/01/2023 3:34 PM SUPERVISOR WALL [employer]IR[employer] DEPARTMENT Vaughn Colunga MD LAB - PATHO LOGY/CYTOLOGY ORDERABLES Performing Organization Address City/State/[facility] Co de Phone Number [facility] [address] [phone] documented in this encounter Visit Diagnoses Diagnosis Illness, unspecified documented in this encounter Additional Health Concerns Infection Onset Date Last Indicated Resolved Time MRSA Hx 03/16/2021 03/16/2021 documented as of this encounter Care Teams Test Skein Winder Relationship Specialty Start Date End Date Jacki Cabrera MD PCP - General Internal Medicine 11/04/14 Summer Green RN Grinder Tender 11/03/14 documented as of this encounter
--- OUTSIDE RECORDS SUMMARY | 2024-05-11 12:07 | XMS_ITS | Encounter Summary ---
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 Procedures ARTHROPLASTY TOTAL KNEE REVISION Referral ID Status Reason Start Date Expiration Date Visits Re quested Visits Authorized [id number] Closed 1 1 Encounter Details Date Type Department Care Team (Latest Contact Info) Description 11/03/2014 4:49 AM CDT - 11/07/2014 12:35 PM CDT Hospital Encounter [facility] 4D MED SURGICAL [address] [place] [address] Charlotte Chacon MD [address] [place] [address] Surgery General Discharge Disposition: Home Health Care Svc Social [...] Sign Reading Time Taken Comments Blood Pressure 152/80 11/07/2014 8:33 AM CDT Pulse 78 11/07/2014 8:33 AM CDT Temperature 36.8 ??C (98.2 ??F) 11/07/2014 8:33 AM CD T Respiratory Rate 18 11/07/2014 8:33 AM CDT Oxygen Saturation 96% 11/07/2014 8:33 AM CDT Inhaled Oxygen Concentration - - Weight 143.6 kg (316 lb 8 oz) 11/03/2014 5:06 AM CDT Height 172.7 cm (5' 8 ) 11/03/2014 5:06 AM CDT Body Mass Index 48.12 11/03/2014 5:06 AM CDT documented in this encounter Functional [...] No 11/07/2014 documented as of this encounter Discharge Summaries * Charlotte Chacon MD - 11/07/2014 6:16 AM CDT [facility] DISCHARGE SUMMARY PATIENT NAME: KAROLINA RAMOS MR#: [id number] SEX: F CSN: [id number] PHYS: Charlotte Chacon M.D. : 1955 ROOM# [id number] DATE OF ADMISSION: 11/03/2014 DATE OF DISCHARGE: 11/07/2014 HISTORY: Karolina Ramos is a 59-year-old female admitted for revision right total knee replacement. PHYSICAL EXAMINATION AND LABORATORY DATA: As in the chart. HOSPITAL COURSE: The patient admitted, underwent a revision right total knee replacement. She had no intraoperative, perioperative, or postoperative complications. Her wound remained clean, dry, intact, noninfected. She is doing well with therapy and discharged home, was felt to be appropriate. 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 She is to return office next week for followup. DISCHARGE MEDICATIONS: As per the instructions. CHAVA/EDUARD #: [id number] documented in this encounter Medications at Time [...] as of this encounter Progress Notes * Becky Solorio, FreddyD - 11/11/2014 10:02 AM CDT Spoke w/ pt who states HH has been coming to her home & calling Dr. Rowell's office w/ INR results. * Simin Jaeger RN - 11/07/2014 11:51 AM CDT Kaela from [facility] notified that patient is being discharged today. Orders Faxed. Simin Jaeger RN 11/07/2014 11:52 AM * Alison Barfield OT - 11/07/2014 11:35 AM CDT Pt. seen for OT follow up. Pt is planning for d/c home this date, however requesting AD for increased independence with her basic ADL tasks/bed mobility. Pt was supine in bed upon arrival, able to transfer to EOB w/o difficulty. Educated patient on use of various AD, then pt requesting use of BSC. Pt performed toileting with supervision and was transferring back to the bed using w/w. All needs inreach at therapist's departure with RN present with d/c paperwork. Patient's goal for the day: I'm going home, but would like some equipment first. Feeding: Complete [place] Oral Facial Hygiene: Supervision, Set-Up, Cues Upper Body Dressing: Stand By Assist Lower Body Dressing: Supervision, Set-Up, Cues (using appropriate AD for incr Indep) Toileting: Supervision, Set-Up, Cues Memory: Appears intact Supine to Sit: Modified [place] (using leg director of publications for RLE) Sit to Supine: Modified [place] (using leg director of publications for RLE) Sit to Stand: Supervision, Set-Up, Cues Stand to Sit: Supervision, Set-Up, Cues Toilet Transfers: Supervision, Set-Up, Cues (stand pivot to BSC) Recommendations: Call light and phone left in reach of patient. If this is the last Occupational Therapy visit, this serves as the discharge summary. Thanks, Alison Barfield, OTR/L [phone] * Pia Hernadez, PT - 11/07/2014 9:42 AM CDT Physical Therapy Treatment Summary Nurse reported pt ready for PT. Supine ankle pumps, QS, heel slides w/sheet assist, & hip abd x10. SAQ AAROM x 5. Pt left w/call donovan and phone in reach. The following assessments were completed: Sit to Supine: Modified [place] Supine to Sit: Modified [place] Sit to Stand: Supervision, Set-Up, Cues Chair to Bed: Activity Does Not Occur Bed to Chair: Declined Type of Transfer: Stand Pivot Transfer Distance Ambulated: 180 FEET Ambulation: Assistive Device: Walker-2 Wheeled;Gait Belt Ambulation: Level of Assistance: Stand By Assist Ambulation: Gait Deviations: Antalgic;Step Length - Decreased;Stance Time - Decreased;Wide Based Gait Weight Bearing Status-LLE: Weight Bearing as Tolerated Weight Bearing Status-RLE: Weight Bearing as Tolerated Weight Bearing Status-LUE: Weight Bearing as Tolerated Weight Bearing Status-RUE: Weight Bearing as Tolerated Patient will benefit from Physical Therapy 2 time(s) per day for one day. Please refer to the PT Treatment Report for more detailed information. If this is the last Physical Therapy visit, this note serves a Discharge Summary. Pia Hernadez, [id number] * Charlotte Chacon MD - 11/07/2014 5:59 AM CDT Alert. No chest pain or sob.knee feels ok. Wound ok. Pain controlled. Ambulating much better. Wantsto go home. Stable. 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 followup in office next week. Discharge meds per instructions. * Pia Hernadez, PT - 11/06/2014 2:35 PM CDT Physical Therapy Treatment Summary Nurse reported pt ready for PT. Supine ankle pumps x 10, QS x 10, SAQ (AAROM) x 5, hip abd x 10, heel slides w/sheet assist x 10. Pt had LOB x 1 in immediate standing from EOB and reported L knee buckled when WS to R LE, she had to sit back down onto bed. Pt was edu on safety awareness of limiting gait when this occurs. BSC>bed SPT w/2ww Min A. Pt left in bed w/call donovan and phone in reach. The following assessments were completed: Sit to Supine: Modified [place] Supine to Sit: Modified [place] Sit to Stand: Minimal Assistance Chair to Bed: Activity Does Not Occur Bed to Chair: Declined Type of Transfer: Stand Pivot Transfer Distance Ambulated: 100 FEET Ambulation: Assistive Device: Walker-2 Wheeled;Gait Belt Ambulation: Level of Assistance: Contact Guard Assist Ambulation: Gait Deviations: Antalgic;Knee Stability - Decreased during stance phase;Increased Trunk Flexion;Step Length - Decreased;Stance Time - Decreased Weight Bearing Status-LLE: Weight Bearing as Tolerated Weight Bearing Status-RLE: Weight Bearing as Tolerated Weight Bearing Status-LUE: Weight Bearing as Tolerated Weight Bearing Status-RUE: Weight Bearing as Tolerated Patient will benefit from Physical Therapy 2 time(s) per day for one day. Please refer to the PT Treatment Report for more detailed information. If this is the last Physical Therapy visit, this note serves a Discharge Summary. Pia Hernadez, [id number] * Pia Hernadez, PT - 11/06/2014 11:28 AM CDT Physical Therapy Treatment Summary Nurse reported pt ready for PT and has been medicated for pain. Asc/desc 5 steps B HR CGA, pt reports she will have her 2 sons present for stair negotiation to enter/exit home. Sit to stand from w/c x 2 w/2ww Min A. BSC>bed SPT w/2ww Min A. CPM -5-98deg. Pt left in bed w/call donovan and phone in reach. The following assessments were completed: Sit to Supine: Modified [place] Supine to Sit: Modified [place] Sit to Stand: Minimal Assistance Chair to Bed: Activity Does Not Occur Bed to Chair: Stand By Assist Type of Transfer: Stand Pivot Transfer Distance Ambulated: 150 FEET Ambulation: Assistive Device: Walker-2 Wheeled;Gait Belt Ambulation: Level of Assistance: Stand By Assist Ambulation: Gait Deviations: Antalgic;Wide Based Gait Weight Bearing Status-LLE: Weight Bearing as Tolerated Weight Bearing Status-RLE: Weight Bearing as Tolerated Weight Bearing Status-LUE: Weight Bearing as Tolerated Weight Bearing Status-RUE: Weight Bearing as Tolerated Patient will benefit from Physical Therapy 2 time(s) per day for one day. Please refer to the PT Treatment Report for more detailed information. If this is the last Physical Therapy visit, this note serves a Discharge Summary. Pia Hernadez, [id number] * Pia Hernadez, PT - 11/06/2014 11:27 AM CDT Problem: Transfers Goal: STG - Patient will perform bed mobility Mod I Outcome: Goal Met Date Met: 11/06/14 * Adriane Sorto RN - 11/06/2014 10:45 AM CDT Kaela from [facility] would like to be notified when patient is discharged. If it is the weekend please call [phone] and if discharged during the week please call [phone] * Kana Garcia MD - 11/06/2014 10:18 AM CDT Admit Date: 11/03/2014 4:49 AM Hospital Day: 3 Clinical Course: Pt on RA, tolerating therapy, VSS, tolerating diet, Pain controlled Patient denies chest pain, shortness of breath and abdominal pain. Data Vitals: 11/05/14 1637 11/05/14 1940 11/06/14 0320 11/06/14 0956 BP: 158/96 144/86 178/87 173/100 Pulse: 94 83 82 91 Temp: 98.7 ??F 98.8 ??F 98.3 ??F 98.7 ??F Resp: 16 16 16 20 Weight: SpO2: 96% 95% 94% 96% Intake/Output Summary (Last 24 hours) at 11/06/14 1018 Last data filed at 11/06/14 0958 Gross per 24 hour Intake 360 ml Output 800 ml Net -440 ml Recent Results (from the past 24 hour(s)) GLUCOSE - POINT OF CARE Collection Time 11/05/14 1:55 PM Result Value Ref Range Glucose WB/POC 97 70-106 mg/dL GLUCOSE - POINT OF CARE Collection Time 11/05/14 6:02 PM Result Value Ref Range Glucose WB/POC 109 (*) 70-106 mg/dL GLUCOSE - POINT OF CARE Collection Time 11/05/14 8:31 PM Result Value Ref Range Glucose WB/POC 118 (*) 70-106 mg/dL PT-INR Collection Time 11/06/14 5:45 AM Result Value Ref Range PT 12.6 (*) 9.5-11.6 sec INR 1.3 (*) 0.9-1.1 GLUCOSE - POINT OF CARE Collection Time 11/06/14 8:08 AM Result Value Ref Range Glucose WB/POC 88 70-106 mg/dL No current facility-administered medications on file prior to encounter. Current Outpatient Prescriptions on File Prior to Encounter Medication Sig Dispense Refill ??? COLACE 100 MG CAPS Take 100 mg by mouth once daily as needed MEDICATIONS FOR CURRENT ENCOUNTER: ?? SCHEDULED MEDICATIONS: calcium carbonate (TUMS) chew tablet 500 mg, Oral, TID clobetasol (TEMOVATE) 0.05 % cream CREA, Topical, QDAY docusate sodium (COLACE) capsule 100 mg, Oral, BID folic acid (FOLVITE) tablet 1 mg, Oral, QDAY insulin lispro (humaLOG) vial 0-40 Units, Subcutaneous, QDAY lisinopril (PRINIVIL;ZESTRIL) tablet 5 mg, Oral, QDAY methotrexate tablet 12.5 mg, Oral, q7 days senna-docusate (SENOKOT-S) tablet 1 Tab, Oral, BID therapeutic multivitamin-minerals (THERAGRAN-M) tablet 1 Tab, Oral, QDAY vitamin B complex with C tablet 1 Tab, Oral, QDAY vitamin D (ergocalciferol) (DRISDOL) capsule 50,000 Units, Oral, q7 days warfarin (COUMADIN) dose per pharmacy MISC, Other, QDay 1700 warfarin (COUMADIN) tablet 7.5 mg, Oral, once warfarin [COMPLETED] warfarin (COUMADIN) tablet 7.5 mg, Oral, once warfarin ?? CONTINUOUS MEDICATIONS: 0.9% NaCl infusion, Intravenous, Continuous ?? PRN MEDICATIONS: acetaminophen (TYLENOL) tablet 650 mg, Oral, q4h PRN acetaminophen (TYLENOL) tablet 650 mg, Oral, q6h PRN dextrose injection 12.5-25 g, Intravenous, PRN glucagon (GLUCAGEN) injection 1 mg, Intramuscular, PRN glucose (Diabetic Use) 40 % oral gel 1 Tube, Oral, PRN hydrocodone-acetaminophen (NORCO) 5-325 MG tablet 1 Tab, Oral, q6h PRN hydrocodone-acetaminophen 7.5-325 MG/15ML solution 15 mL, Oral, q4h PRN naloxone (NARCAN) injection 0.2 mg, Intravenous, PRN ondansetron (ZOFRAN) injection 4 mg, Intravenous, q4h PRN oxyCODONE-acetaminophen (PERCOCET) 5-325 MG tablet 2 Tab, Oral, q6h PRN Exam General appearance: A and O x 3 Head: NC/AT Lungs: CTAB Heart: RRR Abdomen: Soft, ND, NT, Active BS Extremities: Trace LE Neurologic: Grossly Intact. Assessment and Plan: 1. POD 3: Continue PT/OT, VSS, Pain controlled, tolerating hydrocodone elixir. Continue wound care 2. DM2: Continue home meds and diet and monitoring. 3. HTN: Following, Adjust meds as needed. 4. BM: PRN medication if needed. 5. GERD: Tolerating diet. 6. ERROL: Cont CPAP, no SOB, CTAB Kana Garcia MD 11/06/2014 10:18 AM * Hortencia Foster, [facility] - 11/06/2014 9:27 AM CDT Warfarin per Pharmacy Protocol 59 y.o. female Karolina Ramos on warfarin for Post-op VTE prophylaxis Goal INR: 2-2.5 Adverse events related to anticoagulation: None Interacting home medications: yes: Methotrexate 12.5mg po q7days Interacting medication changes during hospitalization: yes: MTX continued Home warfarin Regimen: New start Recent Labs Component Name 11/05/14 0429 11/04/14 0528 10/18/14 1314 PLTCOUNT 131* -- 143* HGB 10.9* 10.9* 12.3 13.6 HCT 33.1* 33.1* 37.4 41.5 Recent Labs Component Name 11/06/14 0545 11/05/14 0429 11/04/14 0528 11/03/14 1138 10/18/14 1314 INR 1.3* 1.2* 1.1 1.1 1.0 Current Warfarin Dose: 6mg x 2, 7.5mg x1 Bridge therapy: None Assessment: Subtherapeutic Plan: 1. Warfarin Dose: 7.5mg x 1 2. Daily INR Hortencia Foster RPH 11/06/2014 9:28 AM * Charlotte Chacon MD - 11/06/2014 7:31 AM CDT Alert. No chest pain or sob nv ok wound ok. Progressing. hasnt worked on stairs yet. Will work on that today and plan discharge for tomorrow. * Pia Hernadez, PT - 11/05/2014 3:33 PM CDT Physical Therapy Treatment Summary Nurse reported pt ok for PT. Supine ankle pumps x 10, QS x 10, SAQ AAROM x 5, hip abd x 5. Bed>BSC>chair SPT w/2ww Min A for sit to stand from BSC. Pt left seated up in recliner chair and reported inc comfort, call donovan and phone in reach. The following assessments were completed: Sit to Supine: Activity Does Not Occur Supine to Sit: Supervision, Set-Up, Cues Sit to Stand: Supervision, Set-Up, Cues Chair to Bed: Activity Does Not Occur Bed to Chair: Stand By Assist Type of Transfer: Stand Pivot Transfer Distance Ambulated: 90 FEET Ambulation: Assistive Device: Walker-2 Wheeled;Gait Belt Ambulation: Level of Assistance: Contact Guard Assist Ambulation: Gait Deviations: Antalgic;Knee Stability - Decreased during stance phase;Wide Based Gait Weight Bearing Status-LLE: Weight Bearing as Tolerated Weight Bearing Status-RLE: Weight Bearing as Tolerated Weight Bearing Status-LUE: Weight Bearing as Tolerated Weight Bearing Status-RUE: Weight Bearing as Tolerated Patient will benefit from Physical Therapy 2 time(s) per day for two days. Please refer to the PT Treatment Report for more detailed information. If this is the last Physical Therapy visit, this note serves a Discharge Summary. Pia Hernadez, [id number] * Kana Garcia MD - 11/05/2014 1:57 PM CDT Admit Date: 11/03/2014 4:49 AM Hospital Day: 2 Clinical Course: Pain controlled but present, tolerating diet and therapy services, no CP, SOB, N/V Patient denies chest pain, shortness of breath and abdominal pain. Data Vitals: 11/04/14 2019 11/05/14 0001 11/05/14 0458 11/05/14 1122 BP: 161/83 158/82 138/71 152/77 Pulse: 77 92 81 90 Temp: 97.8 ??F 101.2 ??F 98.1 ??F 99.1 ??F Resp: 16 16 16 16 Weight: SpO2: 96% 93% 96% 95% Intake/Output Summary (Last 24 hours) at 11/05/14 1357 Last data filed at 11/05/14 0902 Gross per 24 hour Intake 4270 ml Output 1900 ml Net 2370 ml Recent Results (from the past 24 hour(s)) GLUCOSE - POINT OF CARE Collection Time 11/04/14 3:06 PM Result Value Ref Range Glucose WB/POC 123 (*) 70-106 mg/dL GLUCOSE - POINT OF CARE Collection Time 11/04/14 6:50 PM Result Value Ref Range Glucose WB/POC 144 (*) 70-106 mg/dL GLUCOSE - POINT OF CARE Collection Time 11/04/14 9:40 PM Result Value Ref Range Glucose WB/POC 131 (*) 70-106 mg/dL HEMOGLOBIN Collection Time 11/05/14 4:29 AM Result Value Ref Range Hgb 10.9 (*) 12.0-15.6 gm/dL HEMATOCRIT Collection Time 11/05/14 4:29 AM Result Value Ref Range HCT 33.1 (*) 35.9-45.5 % PT-INR Collection Time 11/05/14 4:29 AM Result Value Ref Range PT 11.8 (*) 9.5-11.6 sec INR 1.2 (*) 0.9-1.1 CBC W AUTO DIFFERENTIAL Collection Time 11/05/14 4:29 AM Result Value Ref Range WBC 10.4 4.4-10.7 x10^9/L WBC Corrected RBC 3.69 (*) 3.80-5.20 x10^12/L Hgb 10.9 (*) 12.0-15.6 gm/dL HCT 33.1 (*) 35.9-45.5 % MCV 89.7 80.7-98.3 fl MCH 29.5 26.7-34.0 pg MCHC 32.9 30.8-35.9 gm/dL Plt Ct 131 (*) 153-416 x10^9/L RDW-CV 14.4 12.1-14.9 % MPV 12.5 9.4-12.9 fl Neutro 62.2 44.0-73.0 % Lymph 21.2 20.0-43.0 % Christian 13.6 (*) 5.0-13.0 % Eos 2.5 0.0-6.0 % Baso 0.2 0.0-2.0 % Immature Grans 0.3 0-1 % Neutro Abs 6.49 2.01-7.14 x10^9/L Lymph Abs 2.21 1.07-3.94 x10^9/L Christian Abs 1.42 (*) 0.26-1.07 x10^9/L Eosin Abs 0.26 0-0.47 x10^9/L Baso Abs 0.02 0-0.08 x10^9/L Immature Grans (Abs) 0.03 0.00-0.06 x10^9/L COMPREHENSIVE METABOLIC PANEL Collection Time 11/05/14 4:29 AM Result Value Ref Range Glucose 95 74-106 mg/dL Sodium 139 136-145 mmol/L Potassium 3.8 3.5-5.1 mmol/L Chloride 106 98-107 mmol/L CO2 27 22-31 mmol/L Calcium 8.9 8.5-10.1 mg/dL Anion Gap 6 5-15 mmol/L BUN 7 7-21 mg/dL Creatinine 0.58 0.50-1.30 mg/dL Alk Phos 156 (*) 38-126 U/L ALT/SGPT 24 12-78 U/L AST/SGOT 22 5-40 U/L Protein Total 6.6 6.4-8.2 gm/dL Albumin 2.4 (*) 3.4-5.0 gm/dL Bili Total 0.7 0.2-1.0 mg/dL eGFR MDRD >60 >60 mL/min/1.73m2 eGFR MDRD AFR AMR >60 >60 mL/min/1.73m2 TSH Collection Time 11/05/14 4:29 AM Result Value Ref Range TSH 1.75 0.358-3.740 uIU/mL T4 FREE Collection Time 11/05/14 4:29 AM Result Value Ref Range T4 Free 1.29 0.65-1.34 ng/dL MAGNESIUM BLOOD Collection Time 11/05/14 4:29 AM Result Value Ref Range Magnesium mg/dL 2.0 1.6-2.6 mg/dL B-TYPE NATRIURETIC PEPTIDE Collection Time 11/05/14 4:29 AM Result Value Ref Range BNP 32 0-100 pg/mL GLUCOSE - POINT OF CARE Collection Time 11/05/14 8:21 AM Result Value Ref Range Glucose WB/POC 106 70-106 mg/dL No current facility-administered medications on file prior to encounter. Current Outpatient Prescriptions on File Prior to Encounter Medication Sig Dispense Refill ??? COLACE 100 MG CAPS Take 100 mg by mouth once daily as needed MEDICATIONS FOR CURRENT ENCOUNTER: ?? SCHEDULED MEDICATIONS: calcium carbonate (TUMS) chew tablet 500 mg, Oral, TID clobetasol (TEMOVATE) 0.05 % cream CREA, Topical, QDAY docusate sodium (COLACE) capsule 100 mg, Oral, BID folic acid (FOLVITE) tablet 1 mg, Oral, QDAY HYDROmorphone (DILAUDID) 0.2 mg/ml GRANT ADMINISTRATOR, Intravenous, GRANT ADMINISTRATOR insulin lispro (humaLOG) vial 0-40 Units, Subcutaneous, QDAY lisinopril (PRINIVIL;ZESTRIL) tablet 5 mg, Oral, QDAY methotrexate tablet 12.5 mg, Oral, q7 days senna-docusate (SENOKOT-S) tablet 1 Tab, Oral, BID therapeutic multivitamin-minerals (THERAGRAN-M) tablet 1 Tab, Oral, QDAY vitamin B complex with C tablet 1 Tab, Oral, QDAY vitamin D (ergocalciferol) (DRISDOL) capsule 50,000 Units, Oral, q7 days warfarin (COUMADIN) dose per pharmacy MISC, Other, QDay 1700 warfarin (COUMADIN) tablet 7.5 mg, Oral, once warfarin [COMPLETED] warfarin (COUMADIN) tablet 6 mg, Oral, once warfarin ?? CONTINUOUS MEDICATIONS: 0.9% NaCl infusion, Intravenous, Continuous ?? PRN MEDICATIONS: acetaminophen (TYLENOL) tablet 650 mg, Oral, q4h PRN acetaminophen (TYLENOL) tablet 650 mg, Oral, q6h PRN dextrose injection 12.5-25 g, Intravenous, PRN glucagon (GLUCAGEN) injection 1 mg, Intramuscular, PRN glucose (Diabetic Use) 40 % oral gel 1 Tube, Oral, PRN hydrocodone-acetaminophen (NORCO) 5-325 MG tablet 1 Tab, Oral, q6h PRN hydrocodone-acetaminophen 7.5-325 MG/15ML solution 15 mL, Oral, q4h PRN naloxone (NARCAN) injection 0.2 mg, Intravenous, PRN ondansetron (ZOFRAN) injection 4 mg, Intravenous, q4h PRN oxyCODONE-acetaminophen (PERCOCET) 5-325 MG tablet 2 Tab, Oral, q6h PRN Exam General appearance: Fully A and O x 3 Head: Normal Lungs: CTAB Heart: RRR Abdomen: Soft, NT, ND, active BS Extremities: No C/C. Mild ESTELLA Neurologic: Grossly Intact Assessment and Plan 1. POD 3: Continue PT/OT, VSS, Pain controlled, added hydrocodone elixir. Continue wound care 2. DM2: Continue home meds and diet and monitoring. 3. HTN: Following, Adjust meds as needed. 4. Watch for post op anemia and/or hyponatremia 5. GERD: Tolerating diet. 6. ERROL: Cont CPAP, no SOB, CTAB Kana Garcia MD 11/05/2014 1:57 PM * Melly Matthews, OT - 11/05/2014 10:51 AM CDT Attempted to see pt this AM for OT. She is soundly sleeping after working with PT. Woke with verbalstimuli, but declines OT at this time stating fatigue and pain. Will f/u later today for OT tx as able. Thanks, Melly Matthews OTR/L [phone] * Pia Hernadez, PT - 11/05/2014 10:12 AM CDT Physical Therapy Treatment Summary Nurse reported pt ok for PT. CPM -5-80deg. Supine ankle pumps, QS x 10. Bed>BSC>chair SPT w/2ww Min A for sit to stand from BSC. Seated LAQ AAROM x 5, heel slides x 10. Pt seated up in chair but then c/o R sciatic pain and refused to attempt seated in recliner, requested return to bed immediately. Chair to bed SPT w/2ww Mod A x 2. Sit to supine Min A. Pt left w/call donovan and phone in reach and nurse notified of pt c/o pain and inability to remain seated up in chair. The following assessments were completed: Sit to Supine: Activity Does Not Occur Supine to Sit: Minimal Assistance Sit to Stand: Stand By Assist Chair to Bed: Activity Does Not Occur Bed to Chair: Stand By Assist Type of Transfer: Stand Pivot Transfer Distance Ambulated: 50 FEET Ambulation: Assistive Device: Walker-2 Wheeled;Gait Belt Ambulation: Level of Assistance: Contact Guard Assist Ambulation: Gait Deviations: Antalgic;Increased Trunk Flexion;Knee Stability - Decreased during stance phase;Step Length - Decreased;Stance Time - Decreased Weight Bearing Status-LLE: Weight Bearing as Tolerated Weight Bearing Status-RLE: Weight Bearing as Tolerated Weight Bearing Status-LUE: Weight Bearing as Tolerated Weight Bearing Status-RUE: Weight Bearing as Tolerated Patient will benefit from Physical Therapy 2 time(s) per day for two days. Please refer to the PT Treatment Report for more detailed information. If this is the last Physical Therapy visit, this note serves a Discharge Summary. Pia Hernadez, [id number] * Cassandra Julien, PharmD - 11/05/2014 7:32 AM CDT Warfarin per Pharmacy Protocol 59 y.o. female Karolina Ramos on warfarin for Post-op VTE prophylaxis Goal INR: 2-2.5 Adverse events related to anticoagulation: None Interacting home medications: yes: Methotrexate 12.5mg po q7days Interacting medication changes during hospitalization: yes: MTX continued Home warfarin Regimen: New start Recent Labs Component Name 11/05/1442811/04/14 0528 10/18/14 1314 PLTCOUNT 131* -- 143* HGB 10.9* 10.9* 12.3 13.6 HCT 33.1* 33.1* 37.4 41.5 Recent Labs Component Name 11/05/14 04211/04/1428 11/03/14 1138 10/18/14 1314 INR 1.2* 1.1 1.1 1.0 Current Warfarin Dose: 6mg x 2 Bridge therapy: None Assessment: Subtherapeutic Plan: 1. Warfarin Dose: 7.5mg x 1 2. Daily INR Cassandra Julien, PHARMD 11/05/2014 7:32 AM * Charlotte Chacon MD - 11/05/2014 5:38 AM CDT Alert. No chest pain or sob . Knee pain controlled. Wound looks good. Some progress in therapy. Notready for discharge yet. Will increase activity as tolerated. Possible discharge this weekend. Appreciate dr. flaca ch * Pia Hernadez, PT - 11/04/2014 3:01 PM CDT Physical Therapy Treatment Summary Nurse reported pt ready for PT. Supine ankle pumps x 10, QS x 10, SAQ (AAROM) x 5. Pt unable to perform LAQ when cued, but was able to extend knee during gait to step R foot fwd. CPM -5-70deg. Pt left supine w/call donovan and phone in reach. The following assessments were completed: Sit to Supine: Minimal Assistance Supine to Sit: Supervision, Set-Up, Cues Sit to Stand: Contact Guard Assist Chair to Bed: Activity Does Not Occur Bed to Chair: Declined Type of Transfer: Stand Pivot Transfer Distance Ambulated: 20 FEET Ambulation: Assistive Device: Walker-2 Wheeled;Gait Belt Ambulation: Level of Assistance: Contact Guard Assist Ambulation: Gait Deviations: Antalgic;Stance Time - Decreased;Step Length - Decreased;Weight Shift - Decreased Weight Bearing Status-LLE: Weight Bearing as Tolerated Weight Bearing Status-RLE: Weight Bearing as Tolerated Weight Bearing Status-LUE: Weight Bearing as Tolerated Weight Bearing Status-RUE: Weight Bearing as Tolerated Patient will benefit from Physical Therapy 2 time(s) per day for two days. Please refer to the PT Treatment Report for more detailed information. If this is the last Physical Therapy visit, this note serves a Discharge Summary. Pia Hernadez, [id number] * Summer Green RN - 11/04/2014 2:00 PM CDT Case Management Initial Assessment Case Management screen completed, welcome letter given. Met with patient Lives with: +Alone Family Support (name and phone): Extended Emergency Contact Information Primary Emergency Contact: YEISON TOBAR Address: [facility] Relation: Son Secondary Emergency Contact: ROSETTE TOBAR Relation: Son Anticipated Discharge Date: Anticipated Discharge Date: 11/06/14 Anticipated level of care / disposition at discharge: Home Health Care Prior Level of Functioning: iadls Equipment at Home: Equipment At Home: Walker-2 Wheeled;CPAP/Bi-PAP;Blood Glucose Monitor;Commode-Raised Seat;Grab Bars;Hand Held Shower Additional Equipment needed at home (does not have at home now): PCP: Jasiel Bass If no PCP, action taken: SW Referral: no If patient requires HHC at discharge, he/she requests: No preference Transportation at discharge: Family Comments: Met with patient at her bedside. She lives alone in 1 story home with 4 steps to enter. Iadls, provided own transportation. Family to provide transportation home. She has multiple family members she is going to contact to see if she can have 24 hr assist if needed at discharge. Both her son and sister work outside of the home. Has multiple neices and nephews that she plans on contacting. Home care orders received and placed from Dr. Chacon. CPM orders received and placed per Dr. Chacon. Home care aware of physician home care preference. Patient lives in [facility]. Awaiting determination on home care company. Patient PCP confirmed and changed in epic. Summer [facility] x [phone] Will continue to follow. For any questions or needs please contact: Portable Irrigation Operator Name/Phone number: Summer Green RN * Hortencia Pate, OT - 11/04/2014 11:51 AM CDT Pt consented to therapy and OT eval completed. Pt presents s/p R TKA revision. PLOF: Pt lives alone in 1 story home with 4 steps. Pt has 2ww, raised toilet seat, grab bars, and hand held shower head. Pt is independent with ADL and IADL. Pt is still driving. Pt does have a fall hx, but not in last 6 mos. Pt does report that L knee celeste on occasion. Pt's goal for therapy: pts mcc goal for acute therapy is return home with home health. Pt hashad home health in the past. Pt in bedside chair upon OT arrival. Pt sit<->stand min A with RW. Pt does report that L kneebuckles on occasion. Pt able to tolerate standing for ~2 minutes with good balance, taking 2 steps and completing light grooming activity. Pt assisted back to bedside chair with call light and phone in reach and bedside table in front of pt. Pain Assessment: Pain Rating Score #: 1 Pain Location : Knee Pain Orientation: Right Assessment: RUE: RUE Assessment: Within Defined Limits LUE: LUE Assessment: Within Defined Limits Functional Impairments Transfers: Sit to Stand: Minimal Assistance (RW) Stand to Sit: Minimal Assistance (RW) Basic ADL: observation and clinical judgement Feeding: Complete [place] Oral Facial Hygiene: Contact Guard Assist (in standing) Bathing: Moderate Assistance Upper Body Dressing: Stand By Assist Lower Body Dressing: Moderate Assistance Toileting: Moderate Assistance PLAN OF CARE: Refer to Care Plan for short and mcc goals Impairment of: ADL Function and Transfers/Mobility Due to: Decreased endurance, Decreased UE Strength/coordination, Decreased balance, Aphasia, Impaired safety awareness, Apraxia and Cognitive impairment RECOMMENDATIONS: continue skilled OT treatments -adaptive equipment and DME training If this is the last Occupational Therapy visit, this serves as the discharge summary. Hortencia Pate OTR/Morteza [phone] * Pia Hernadez, PT - 11/04/2014 10:55 AM CDT Physical Therapy Treatment Summary Nurse reported pt ready for PT. Supine ankle pumps x 10, QS x 10, heel slides (AAROM) x 10, SAQ (AAROM) x 5. Seated heel slides x 10, attempted LAQ but pt was unable. Pt left seated up in chair w/call donovan and phone in reach. The following assessments were completed: Sit to Supine: Activity Does Not Occur Supine to Sit: Minimal Assistance Sit to Stand: Minimal Assistance;X 2 Chair to Bed: Activity Does Not Occur Bed to Chair: Minimal Assistance to Left Type of Transfer: Stand Pivot Transfer Distance Ambulated: 3 FEET Ambulation: Assistive Device: Walker-2 Wheeled;Gait Belt Ambulation: Level of Assistance: Minimum Assistance Ambulation: Gait Deviations: Antalgic;Stance Time - Decreased;Step Length - Decreased;Knee Stability - Decreased during stance phase;Weight Shift - Decreased Weight Bearing Status-LLE: Weight Bearing as Tolerated Weight Bearing Status-RLE: Weight Bearing as Tolerated Weight Bearing Status-LUE: Weight Bearing as Tolerated Weight Bearing Status-RUE: Weight Bearing as Tolerated Patient will benefit from Physical Therapy 2 time(s) per day for three days. Please refer to the PT Treatment Report for more detailed information. If this is the last Physical Therapy visit, this note serves a Discharge Summary. Pia Hernadez [id number] * Becky Solorio PharmD - 11/04/2014 6:22 AM CDT Warfarin per Pharmacy Protocol 59 y.o. female Karolina Ramos on warfarin for Post-op VTE prophylaxis Goal INR: 2-2.5 Adverse events related to anticoagulation: None Interacting home medications: yes: Methotrexate 12.5mg po q7days Interacting medication changes during hospitalization: yes: MTX continued Home warfarin Regimen: New start Recent Labs Component Name 11/04/14 0528 10/18/14 1314 PLTCOUNT -- 143* HGB 12.3 13.6 HCT 37.4 41.5 Recent Labs Component Name 11/04/14 0528 11/03/14 1138 10/18/14 1314 INR 1.1 1.1 1.0 Current Warfarin Dose: 6mg x 1 Bridge therapy: None Assessment: Subtherapeutic Plan: 1. Warfarin Dose: 6mg x 1 2. Daily INR Becky Solorio PHARMD 11/04/2014 6:22 AM * Charlotte Chacon MD - 11/04/2014 5:24 AM CDT Alert. No chest pain or sob. nv ok wound ok. Dressing dry. Up in chair yesterday. Will increase activity as tolerated. Stable at present. * Becky Rios RCP - 11/03/2014 7:30 PM CDT Pt was taken off of capnography to wear home cpap while sleeping. Informed nurse and requested to be notified when pt wakes up so that capnography can be continued. Thank you! * Ghazala Sanchez RN - 11/03/2014 6:29 PM CDT Shift summary [id number] only Pt up to chair, back to bed with 2 person staff assist, tolerated well, gaite steady. Pt using insulation supervisor for pain control. VSS. Neurovasc checks to RLE wnl. IVF's infusing as ordered. CPM -5-55 degrees, pttolerating well. * Summer Green RN - 11/03/2014 4:41 PM CDT Nursing updated that Dr. Chacon ordered Dr. Garcia to see this patient. They plan to address. Summer [facility] x [phone] * Pia Hernadez, PT - 11/03/2014 3:42 PM CDT Spoke to maite Kern to see pt. PT evaluation completed, see doc flowsheet. Pt lives alone in 1-story home with 4 steps & 1 HR to enter. Pt has the following DME: 2ww. Pts goal is to return home upon discharge. PLOF: Indep amb in home and community Pt presents s/p R TKA revision. Today, pt performs bed mobility with Min A, transfers with Min A x 2. Pt amb 2ft with 2ww with Min A x 2. Pt edu on HEP and provided w/written instruction: Ankle pumps, QS, seated heel slides & LAQ x 10. Pt was agreeable to participate with PT, call donovan and phone within reach at end of session. If this is the last physical therapy visit, this serves as the discharge summary. ASSESSMENT: Primary Limitations: Moderate Impairment of: Transfers/Mobility Due to:Decreased endurance, Decreased LE Strength/coordination and Decreased balance Other: Functional Impairments: Mobility Other: PLAN OF CARE: Refer to Care Plan for short and mcc goals RECOMMENDATIONS: Continue PT daily x 3 days Adaptive equipment/DME Training, Energy conservation/Work simplification, Education/Training, Home Exercise Program, LE AROM/Strengthening, Positioning/Splinting, Transfer Training, Gait Training andStair Training Pia Hernadez, [id number] * Joselyn Reynolds RD/KHANG - 11/03/2014 3:31 PM CDT Initial Nutrition Assessment Comments: Consult received for carbohydrate counting assessment. Pt reports latest TuuH5M=9.3%, down from over 11% in December. RD briefly reviewed consistent carbohydrate diet. RD also educated pt on consistent vitamin K diet. Pt's diet is lacking protein as she is s/p bariatric surgery and is unable to consume a high volume of food. Reviewed s/p bariatric surgery vitamin supplementation recommendations with pt. RD contacted [facility] to have Optisource and Isopure sent over to help meet pt's needs, which pt was agreeable to. Pt at moderate nutritional risk at this time. Assessment: Med/Surg History and Clinical Diagnoses: s/p right revision total knee replacement; hx: sleep apnea, HTN, GERD, DM, s/p bariatric surgery Height: 5' 8 (172.7 cm) Weight: 316 lb 8 oz (143.563 kg) Weight Method: Standing BMI: Body mass index is 48.13 kg/(m^2). BMI Range: Morbidly Obese Class 3 Food Allergies: No known food allergies Current diet order: Consistent Carb Standard Current supplement order: Isopure or Optisource TID Nutrition recommendation: agree with current nutrition order GI Concerns: None Chewing/Swallowing: None Pain affecting intake: No Estimated Needs: KCAL: 3605-0870 (25-30 kcal/kg ABW) Protein (g): 64-83 (1-1.3 g/kg IBW) Fluid (ml): 1 ml/kcal Recommended Access Route: PO Pertinent Nutrition Labs: reviewed Pertinent Nutrition Medications: ?? calcium carbonate (TUMS) chew tablet 500 mg, Oral, TID ?? folic acid (FOLVITE) tablet 1 mg, Oral, QDAY ?? insulin lispro (humaLOG) for insulin pump 0-40 Units, Subcutaneous, 4X/day - AC & HS ?? therapeutic multivitamin-minerals (THERAGRAN-M) tablet 1 Tab, Oral, QDAY ?? vitamin B complex with C tablet 1 Tab, Oral, QDAY ?? vitamin D (ergocalciferol) (DRISDOL) capsule 50,000 Units, Oral, q7 days Skin/Wound: 22 pearl score per nursing documentation Education needed: Vit K Education Provided: Yes;Handout Provided Expected level of compliance: Good Nutrition Diagnostic Statement: (NI-2.1) Inadequate oral food/beverage intake related to: s/p bariatric surgery as evidenced by : minimal PO intake Nutrition Intervention: (ND-1) Meals and snacks:;(ND-3.1) Medical Food Supplements: Recommendations: Continue with current diet Supplement with Zero Carb Isopure (Bariatric Supplement) (provides 160 calories and 40 gm protein per serving) and Optisource (Bariatric Supplement) (provides 200 kcal, 24 gm protein per serving) TID. Monitoring: Energy intake Supplement tolerance Labs Evaluation: Diagnostic Statement #1 Goals: Nutrition Goal: Total intake will meet estimated nutrient needs Nutrition Goal Timeframe: Throughout stay Nutrition Goal Progress: New goal established * Joselyn Reynolds RD/KHANG - 11/03/2014 3:31 PM CDT Problem: Nutrition Care Process Goal: Nutrition Care Process Nutrition Care Process (1) Nutrition Diagnostic Statement: (NI-2.1) Inadequate oral food/beverage intake related to: s/p bariatric surgery as evidenced by : minimal PO intake Nutrition Diagnostic Statement Progress: New diagnostic statement established Nutrition Intervention: (ND-1) Meals and snacks: consistent carbohydrate diet;(ND-3.1) Medical FoodSupplements: Optisource or Isopure TID Nutrition Goal: Total intake will meet estimated nutrient needs Nutrition Goal Timeframe: Throughout stay Nutrition Goal Progress: New goal established * Becky Solorio PharmD - 11/03/2014 6:20 AM CDT Late Entry Warfarin per Pharmacy Protocol 59 y.o. female Karolina Ramos on warfarin for Post-op VTE prophylaxis Goal INR: 2-2.5 Adverse events related to anticoagulation: None Interacting home medications: yes: Methotrexate 12.5mg po q7days Interacting medication changes during hospitalization: yes: MTX continued Home warfarin Regimen: New start Recent Labs Component Name 11/04/14 0528 10/18/14 1314 PLTCOUNT -- 143* HGB 12.3 13.6 HCT 37.4 41.5 Recent Labs Component Name 11/04/14 0528 11/03/14 1138 10/18/14 1314 INR 1.1 1.1 1.0 Current Warfarin Dose: New start Bridge therapy: None Assessment: Subtherapeutic Plan: 1. Warfarin Dose: 6mg x 1 2. Daily INR Becky Solorio PHARMD 11/03/2014 6:21 AM * Melly Cao RN - 10/29/2014 7:58 AM CDT Medical and cardiac clearance on chart. * Melly Cao RN - 10/20/2014 11:26 AM CDT Abnormal labs faxed/called to Dr. Castañeda office, left message with Swapna. * Melly Cao RN - 10/19/2014 1:[address] Cabrera notified we need preop clearance and pts blood pressure to be more controlled before knee replacement on 11/03/14. documented in this encounter H&P Notes * Charlotte Chacon MD - 10/31/2014 7:54 AM CDT [facility] PREOPERATIVE HISTORY AND PHYSICAL PATIENT NAME: KAROLINA RAMOS MR#: [id number] ROOM#: CSN: [id number] ADMISSION DATE: 11/03/2014 SEX: F PHYSICIAN'S NAME: Charlotte Chacon M.D. : 1955 DATE OF SURGERY: 11/03/2014 Karolina Ramos is a 58-year-old female, who approximately 7 years ago underwent a right total knee replacement. She has been bothered by painful subluxation of her right knee, which has been unresponsive to nonoperative treatment. She has had a significant weight loss, secondary to surgery. Her diabetes is now controlled, and she presents now for revision total knee replacement. DRUG ALLERGIES: PENICILLIN. CURRENT MEDICATIONS: Include Effexor, oxybutynin, lisinopril, aspirin, Victoza, K-Dur, Ativan. SURGERIES: In the past include hysterectomy, bunionectomy, breast reduction, knee replacement, back surgery, gastric banding. ILLNESSES: Include hypertension, diabetes, sleep apnea, GERD, anxiety, history of MRSA. REVIEW OF SYSTEMS: She has had no recent chest pain, shortness of breath, abdominal pain, or change in bowel or bladder habits. PHYSICAL EXAMINATION: GENERAL: Alert female. HEAD, EARS, EYES, NOSE, THROAT: Clear. CHEST: Clear. CARDIOVASCULAR: Normal sinus rhythm. ABDOMEN: Reveals soft, nontender, obese abdomen. EXTREMITIES: Examination of the knee reveals obvious subluxation of her right unstable right knee. Neurovascular status is intact. There is no evidence of infection. IMPRESSION: Unstable right knee. PLAN: Right revision total knee replacement. The risks, benefits, alternatives, and possible complications were explained. She accepts and requests to proceed. I have explained the nature, purpose and necessity of the operation/procedure, possible alternative methods of treatment, and risks involved, and the possibility of complication. End of Report. CHAVA/MODL #: [id number] documented in this encounter Consult Notes * Kana Garcia MD - 11/04/2014 4:22 PM CDT Date of Admission: 11/03/2014 Patient's Primary Care Physician: Jacki Cabrera Name: Karolina Ramos Age: 59 y.o. Sex: female Chief Complaint/History of Present Illness: I am happy to see this pleasant WF in medical consultation by Dr. Chacon post op for medical decision making and advice and opinion. Patient progressing with therapy. VSS, Pain controlled. No CP, SOB, N/V Patient complains of: mild joint pain Past Medical History Diagnosis Date ??? Arthritis rheumatoid ??? Edema bilateral ankles ??? MRSA (methicillin resistant Staphylococcus aureus) post right foot surgery ??? Psoriasis right leg, both elbows, scalp ??? Constipation ??? Sleep apnea uses cpap machine ??? Hypertension ??? Overweight, obesity and other hyperalimentation ??? Depression ??? GERD (gastroesophageal reflux disease) ??? History of diabetes mellitus Past Surgical History Procedure Laterality Date ??? Arthroplasty 2006 left ??? Bunionectomy 2006 right ??? Bunionectomy 1993 left ??? Tubal ligation, laparoscopic 1976 ??? Breast reduction 1993 bilat ??? Back surgery 1995 [id number] ??? Ankle fracture tx 1998 right ??? Ankle fracture tx 1999 hardware removed ??? Salpingo-oophorectomy 2003 bilat ??? Arthroplasty 2007 right knee,2008 ??? Knee arthroscopy 1995 left ??? Knee arthroscopy 1996 right ??? Hysterectomy 1988 vaginal Family History Problem Relation Age of Onset ??? Heart Failure Mother ??? Diabetes Mother ??? Heart Failure Father ??? Arthritis-rheumatoid Sister ??? 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 Smoking status: Former Smoker -- 1.00 packs/day for 19.0 years Types: Cigarettes Quit date: 02/17/2013 ??? Smokeless tobacco: Not on file Comment: 5 cigarettes per day ??? Alcohol Use: No Comment: occasional ??? Drug Use: No ??? Sexual Activity: Not on file Prescriptions prior to admission Medication Sig Dispense Refill ??? LISINOPRIL PO Take 5 mg by mouth once daily ??? clobetasol (TEMOVATE) 0.05 % gel Apply to affected area as needed ??? Ergocalciferol (VITAMIN D2) 2000 UNITS TABS Take 50,000 Units by mouth every 7 days ??? folic acid (FOLVITE) 1 MG tablet Take 1 mg by mouth once daily ??? multivitamin with iron (ONE A DAY WITH IRON) tablet Take 1 Tab by mouth once daily ??? calcium 500 MG TABS tablet Take 500 mg by mouth 3 times daily ??? B Complex Vitamins (VITAMIN B COMPLEX PO) Take 1 Tab by mouth once daily ??? methotrexate 2.5 MG tablet Take 2.5 mg by mouth every 7 days Takes 5 tablets ReasonsPsoriasis associated with Arthritis ??? Adalimumab (HUMIRA PEN SC) Inject 40 Units subcutaneously every 14 days ??? cyanocobalamin (VITAMIN B-12) injection Inject 1,000 mcg into muscle every 30 days ??? insulin aspart (NOVOLOG) for insulin pump Inject subcutaneously as directed Basal rate 2.5 units ??? COLACE 100 MG CAPS Take 100 mg by mouth once daily as needed Allergies Allergen Reactions ??? Penicillins Shortness of Breath and Rash Review of Systems: A comprehensive review of systems was negative except as described in HPI. Exam Vitals: 11/03/14 2358 11/04/14 0402 11/04/14 0828 11/04/14 1335 BP: 152/69 141/61 159/73 166/74 Pulse: 88 84 78 83 Temp: 99.4 ??F 98.8 ??F 99 ??F 99 ??F Resp: 20 20 20 20 Weight: SpO2: 92% 92% 94% 97% General appearance: alert, cooperative, no distress Heart: regular rhythm, normal S1 and S2, without murmurs, rubs or gallops Lungs: breath sounds normal and symmetric; no rales or wheezes Abdomen: soft without mass, non-tender, with normal bowel sounds Extremities: no clubbing, cyanosis, 1+ ESTELLA Neuro: Grossly intact Data Recent Results (from the past 24 hour(s)) GLUCOSE - POINT OF CARE Collection Time 11/03/14 9:27 PM Result Value Ref Range Glucose WB/POC 133 (*) 70-106 mg/dL HEMOGLOBIN Collection Time 11/04/14 5:28 AM Result Value Ref Range Hgb 12.3 12.0-15.6 gm/dL HEMATOCRIT Collection Time 11/04/14 5:28 AM Result Value Ref Range HCT 37.4 35.9-45.5 % PT-INR Collection Time 11/04/14 5:28 AM Result Value Ref Range PT 11.5 9.5-11.6 sec INR 1.1 0.9-1.1 GLUCOSE - POINT OF CARE Collection Time 11/04/14 8:31 AM Result Value Ref Range Glucose WB/POC 132 (*) 70-106 mg/dL GLUCOSE - POINT OF CARE Collection Time 11/04/14 3:06 PM Result Value Ref Range Glucose WB/POC 123 (*) 70-106 mg/dL Assessment and Plan 1. POD 2: Continue PT/OT, VSS, Pain controlled, add hydrocodone elixir. Monitor labs, continue wound care. 2. DM2: Continue home meds and diet and monitoring. 3. HTN: Following, Adjust meds as needed. 4. Watch for post op anemia and/or hyponatremia 5. GERD: Tolerating diet. 6. ERROL: Cont CPAP, no SOB, CTAB Kana Garcia MD 11/04/2014 4:23 PM * Gabby Valero LPN - 11/04/2014 2:33 PM CDTAssociated Order(s): IP CONSULT TO HOME CARE Home care order received. [facility] has been arranged to follow after discharge Due to where patient lives in [place] Thank you for this referraL. Gabby Valero L.P.N. Admission Coordinator [facility] at HOME [phone] * Raquel Khan RN - 11/03/2014 3:16 PM CDT Pt uses insulin pump at home and will continue here in hospital per Dr. Guthrie. Verified insulin pump setting-Basal Rate 2.25 units per hour. She does not give bolus for meals-she states basal rate keeps blood sugars controlled at home. Her hemoglobin A1C improved greatly December 2013 11% now 5.1. * Gissell Guthrie MD - 11/03/2014 12:31 PM CDTAssociated Order(s): IP CONSULT TO HOSPITALIST IPC Hospitalist H and P Patient Karolina Ramos Date of admit 11/03/2014 Date 11/03/2014 Jasiel Bass CC: medical management post surgery .HPI: Patient is a 59 y.o. white, female with hx of DDD, s/p rt TKR in 2008 who presents with progressing rt knee pain and work up c/w subluxation of the knee and not responsive to conservative measures. She had Right [place] [employer] revision hinged total knee replacement by dr Chacon today and admitted for inpt care. Her pain is currently under control, denies sob, no n/v. Past Medical History Diagnosis Date ??? Arthritis rheumatoid ??? Edema bilateral ankles ??? MRSA (methicillin resistant Staphylococcus aureus) post right foot surgery ??? Psoriasis right leg, both elbows, scalp ??? Constipation ??? Sleep apnea uses cpap machine ??? Hypertension ??? Overweight, obesity and other hyperalimentation ??? Depression ??? GERD (gastroesophageal reflux disease) ??? History of diabetes mellitus Past Surgical History Procedure Laterality Date ??? Arthroplasty 2006 left ??? Bunionectomy 2006 right ??? Bunionectomy 1993 left ??? Tubal ligation, laparoscopic 1976 ??? Breast reduction 1993 bilat ??? Back surgery 1996 [id number] ??? Ankle fracture tx 1999 right ??? Ankle fracture tx 2000 hardware removed ??? Salpingo-oophorectomy 2004 bilat ??? Arthroplasty 2008 right knee,2008 ??? Knee arthroscopy 1995 left ??? Knee arthroscopy 1996 right ??? Hysterectomy 1988 vaginal Prescriptions prior to admission Medication Sig Dispense Refill ??? LISINOPRIL PO Take 5 mg by mouth once daily ??? Ergocalciferol (VITAMIN D2) 2000 UNITS TABS Take 50,000 Units by mouth every 7 days ??? folic acid (FOLVITE) 1 MG tablet Take 1 mg by mouth once daily ??? multivitamin with iron (ONE A DAY WITH IRON) tablet Take 1 Tab by mouth once daily ??? calcium 500 MG TABS tablet Take 500 mg by mouth 3 times daily ??? B Complex Vitamins (VITAMIN B COMPLEX PO) Take 1 Tab by mouth once daily ??? methotrexate 2.5 MG tablet Take 2.5 mg by mouth every 7 days Takes 5 tablets ReasonsPsoriasis associated with Arthritis ??? Adalimumab (HUMIRA PEN SC) Inject 40 Units subcutaneously every 14 days ??? cyanocobalamin (VITAMIN B-12) injection Inject 1,000 mcg into muscle every 30 days ??? clobetasol (TEMOVATE) 0.05 % gel Apply to affected area as needed ??? insulin aspart (NOVOLOG) for insulin pump Inject subcutaneously as directed Basal rate 2.5 units ??? COLACE 100 MG CAPS Take 100 mg by mouth once daily as needed Allergies Allergen Reactions ??? Penicillins Shortness of Breath and Rash History Substance Use Topics ??? Smoking status: Former Smoker -- 1.00 packs/day for 19.0 years Types: Cigarettes Quit date: 02/17/2013 ??? Smokeless tobacco: Not on file Comment: 5 cigarettes per day ??? Alcohol Use: No Comment: occasional Family History Problem Relation Age of Onset ??? Heart Failure Mother ??? Diabetes Mother ??? Heart Failure Father ??? Arthritis-rheumatoid Sister ??? OTHER Sister COPD, SLE Review of Systems Constitutional: Negative HEENT: No acute change Respiratory: Negative Cardiovascular: Negative Gastrointestinal: Negative Genitourinary:Negative Skin: Negative Breast: Negative Hematologic/lymphatic: Negative Musculoskeletal: as above Neurological: Negative Behavioral/Psych: Negative Endocrine: Negative Objective: Patient Vitals for the past 8 hrs: BP Temp Pulse Resp SpO2 Height Weight 11/03/14 1200 141/78 mmHg 97.3 ??F 79 16 94 % - - 11/03/14 1100 156/84 mmHg 97.2 ??F 73 16 91 % - - 11/03/14 1030 149/78 mmHg 97.3 ??F 72 16 91 % - - 11/03/14 1005 155/77 mmHg 97 ??F 67 11 95 % - - 11/03/14 0950 150/82 mmHg - 72 12 95 % - - 11/03/14 0935 147/82 mmHg - 70 16 100 % - - 11/03/14 0920 143/82 mmHg - 70 17 98 % - - 11/03/14 0905 146/81 mmHg 96.1 ??F 77 18 95 % - - 11/03/14 0515 182/111 mmHg 98 ??F 70 16 97 % - - 11/03/14 0506 - - - - - 1.727 m (5' 8 ) 143.563 kg (316 lb 8 oz) Exam General: alert, in no distress Heent: Lucien, neck supple, nasa/oral mucosa intact, no nodule/lymph node felt Cardiovascular: regular rate, regular rhythm and no murmurs detected Pulmonary/chest: clear to auscultation, no wheezes or rales Abdomen: Soft, Non-Tender, Not distended, Normal BS and Obese Skin: No acute rash, edema, no open wound Muscle skeletal: grossly normal, rt knee dressed Neurologic: axaox3, follow commands Data Review Recent Labs Component Name 10/18/14 1314 SODIUM 142 POTASSIUM 3.5 CHLORIDE 107 CO2 32* BUN 7 CREATININE 0.51 GLUCOSE 89 CALCIUM 9.5 ALBUMIN 3.2* ALKPHOS 174* ALT 38 AST 43* TBIL 0.5 TPROT 7.8 EGFR >60 Recent Labs Component Name 10/18/14 1314 05/29/08 0440 05/28/08 1020 04/15/08 0645 WBC 6.6 -- 9.7 -- HGB 13.6 11.2* 13.1 11.9 HCT 41.5 35.0* 40.1 34.2* PLTCOUNT 143* -- 268 -- No results for input(s): BNP in the last 07326 hours. No results for input(s): TROPONIN in the last 65337 hours. No results for input(s): TSH in the last 76732 hours. Recent Labs Component Name 10/18/14 1310 05/28/08 1005 04/12/08 1213 COLORUA Yellow Yellow Yellow CHARACTERUA -- Clear -- SPECGRAVUA 1.010 1.025 1.020 PHUA 6.5 5.0 7.0 PROTEINUA Negative NEGATIVE Negative BLOODUA Negative NEGATIVE -- LEUKOCYTEUA Negative NEGATIVE Negative NITRITEUA Negative POSITIVE -- GLUCOSEUA Negative NEGATIVE Negative KETONEUA Negative NEGATIVE Negative BILIRUBINUA Negative NEGATIVE -- UROBILINUA 1.0 0.2 -- WBCUA -- -- None seen RBCUA -- -- None seen EPITHUA -- 2-5* -- MUCUSUA -- -- Present CASTUA -- -- NOT AVAIL. NOT AVAIL. CRYSTALUA -- -- Amorphous Sediment Present* BACTERIAUA -- 1+ Few YEASTUA -- -- NOT AVAIL. Imaging: Assessment and Plan: - s/p rt TK revision: s/p Right Camp[place] Nephew legion revision hinged total knee Replacement. Pain control. Ortho follow - DM: pt state her DM has been improved last few years. A1c 5.1 recently. Pt prefer continue her insulin pump and agree use bolus per SSI if needed. Will arrange. - ERROL: nocturnal cpap - HTN: ct lisinopril, - psoriasis: doing well, ct temovate. Hold off methotrexate till wound heals - hx of MRSA infection: contact isolation - obese: Body mass index is 48.13 kg/(m^2)., outpt follow up DVT Prophylaxis: coumadin, follow INR to adjust dose Code status: full Gissell Guthrie MD Cc Jasiel Bass documented in this encounter Nursing Notes * Gris Roque RN - 11/03/2014 5:38 AM CDT Safety actions for best outcome document discussed with patient . Pt voiced understanding Prayer offered Good hand washing gel in and gel out discussed and encouraged with patient and visitors. documented in this encounter OR Notes * Operative - Charlotte Chacon MD - 11/03/2014 9:27 AM CDT [facility] OPERATIVE REPORT PATIENT NAME: KAROLINA RAMOS MR#: [id number] ROOM#: [facility] CSN: [id number] SURGEON: CHARLOTTE CHACON M.D. SEX: F : 1955 SURGERY DATE: PREOPERATIVE DIAGNOSIS: Unstable painful right total knee replacement. 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 OPERATION PERFORMED: Right [facility] revision hinged total knee replacement. SURGEON: Charlotte Chacon M.D. CO-SURGEON: Lionel Kiran M.D. ANESTHESIA: General. OPERATIVE REPORT: Following premedication and informed consent, the patient was taken to the operating room and given a general anesthetic. After adequate anesthesia had been obtained, the patient's knee was prepped and draped in the usual sterile fashion using ChloraPrep for preparation of the skin. Longitudinal skin incision made through the previous scar site. A medial parapatellar capsulotomy was performed. The knee was flexed and patella was translated laterally. The patellar button was grossly loose and was removed and was not felt that there was enough bone left in patella to resurface it. The femoral component was easily removed and was noted to have osteomyelitis medially and posteromedially. The tibial component was then also removed. The Campo Nephew legion revision instrumentation was then used to make appropriate condylar cuts. The distal femur was reamed to 18 mm. The anterior-posterior dimension sized to a #5 component. The distal femoral intramedullary cutting jig was applied. Distal femoral cut was made resecting 5 mm laterally and 10 mm distally. Following that, the #5 anterior-posterior and chamfer cutting jig was applied. Those appropriate condylar cuts were made resecting 10 mm from the posterior condyles. A #5 trial with a 10 mm medial augment and a 5 mm lateral augment with an 18 mm stem was placed. It was noted be a very good fit. The tibia canal was then reamed up to 14 mm. The tibial plateau was sized to a #4 component. A #4 tibial trial was placed. The hinge trials were placed and with an 18 mm insert, there is noted to be a good range of motion, good patellar tracking, and good stability. The trials were removed. The joint was copiously lavaged and dried. The femoral components were then cemented into place cementing only the metaphyseal region. The tourniquet was deflated. Hemostasis was assured. The wound was closed using a #1 Vicryl ligatures followed by 2-0 Vicryl ligatures followed by sterile stainless steel skin alex. Appropriate sterile dressing was applied. The patient tolerated the procedure well and was taken to the recovery room in good condition with stable vital signs. CHAVA/MODL #: [id number] * Operative - iLonel Kiran MD - 11/03/2014 9:08 AM CDT [facility] OPERATIVE REPORT PATIENT NAME: KAROLINA RAMOS MR#: [id number] ROOM#: [facility] CSN: [id number] SURGEON: LIONEL KIRAN M.D. SEX: F : 1955 SURGERY DATE: 11/03/2014 PREOPERATIVE DIAGNOSIS: Status post total knee arthroplasty with instability. POSTOPERATIVE DIAGNOSIS: Status post total knee arthroplasty with instability. PROCEDURE: Revision right total knee arthroplasty (Campo Nephew hinged knee). SURGEON: Dr. Chacon FOUNDRY WORKER GENERAL: Dr. Kiran What was done, the patient was administered IV antibiotics and general anesthesia. After routine prep and drape of the right knee through the previous anterior incision, removal of the unstable previous total knee arthroplasty was carried out, along with its associated cement. A Campo Nephew hinged right knee prosthesis was then inserted (cemented). Dr. Chacno was the primary surgeon. I functioned as the 1st field technical assistant. Procedure was ended. The patient tolerated the procedure well. EAD/MODL #: [id number] cc: Lionel Kiran M.D. documented in this encounter Miscellaneous Notes * Coding Query - Jesika Dior RN - 11/04/2014 11:47 AM CDT CDMP reviewed documented in this encounter Plan of Treatment Not on file documented as of this encounter Procedures Procedure Name Priority Date/Time Associated Diagnosis Comments IMAGING/RADIOLOGY/XR AY RESULTS ORDER 11/09/2014 6:02 AM CDT CARDIAC RHYTHM STRIP ORDER 11/09/2014 5:49 AM CDT LAB RESULTS ORDER 11/08/2014 10:35 PM CDT GLUCOSE - POINT OF CARE Routine 11/07/2014 7:40 AM CDT PT-INR AM Draw 11/07/2014 4:23 AM CDT GLUCOSE - POINT OF CARE Routine 11/06/2014 7:39 PM CDT GLUCOSE - POINT OF CARE Routine 11/06/2014 5:21 PM CDT GLUCOSE - POINT OF CARE Routine 11/06/2014 12:17 PM CDT GLUCOSE - POINT OF CARE Routine 11/06/2014 8:08 AM CDT PT-INR AM Draw 11/06/2014 5:45 AM CDT GLUCOSE - POINT OF CARE Routine 11/05/2014 8:31 PM CDT GLUCOSE - POINT OF CARE Routine 11/05/2014 6:02 PM CDT GLUCOSE - POINT OF CARE Routine 11/05/2014 1:55 PM CDT GLUCOSE - POINT OF CARE Routine 11/05/2014 8:21 AM CDT PT-INR AM Draw 11/05/2014 4:29 AM CDT CBC W AUTO DIFFERENTIAL AM Draw 11/05/2014 4:29 AM CDT HEMATOCRIT AM Draw 11/05/2014 4:29 AM CDT HEMOGLOBIN AM Draw 11/05/2014 4:29 AM CDT B-TYPE NATRIURETIC PEPTIDE AM Draw 11/05/2014 4:29 AM CDT COMPREHENSIVE METABOLIC PANEL AM Draw 11/05/2014 4:29 AM CDT MAGNESIUM BLOOD Routine 11/05/2014 4:29 AM CDT TSH AM Draw 11/05/2014 4:29 AM CDT T4 FREE Routine 11/05/2014 4:29 AM CDT GLUCOSE - POINT OF CARE Routine 11/04/2014 9:40 PM CDT GLUCOSE - POINT OF CARE Routine 11/04/2014 6:50 PM CDT GLUCOSE - POINT OF CARE Routine 11/04/2014 3:06 PM CDT GLUCOSE - POINT OF CARE Routine 11/04/2014 8:31 AM CDT PT-INR AM Draw 11/04/2014 5:28 AM CDT HEMATOCRIT AM Draw 11/04/2014 5:28 AM CDT HEMOGLOBIN AM Draw 11/04/2014 5:28 AM CDT GLUCOSE - POINT OF CARE Routine 11/03/2014 9:27 PM CDT CULTURE MSSA/MRSA Routine 11/03/2014 4:0 3 PM CDT PT-INR STAT 11/03/2014 11:38 AM CDT GLUCOSE - POINT OF CARE Routine 11/03/2014 11:06 AM CDT GLUCOSE - POINT OF CARE Routine 11/03/2014 9:15 AM CDT ARTHROPLASTY TOTAL KNEE REVISION 11/03/2014 6:33 AM CDT Other complications due to internal joint prosthesis (HCC) Special Needs CAMPO NEPHEW JESUS AVAIL For 11/03/14 7 AM case, S&N rep Baldomero Alexander notified, TK GLUCOSE - POINT OF CARE Routine 11/03/2014 5:46 AM CDT documented in this encounter Results * IMAGING/RADIOLOGY/XRAY RESULTS ORDER (11/09/2014 6:02 AM CDT) Anatomical Region Laterality Modality Other Narrative 11/09/2014 6:02 AM CDT Ordered by an unspecified provider. Scanned Document IMAGING * CARDIAC RHYTHM STRIP ORDER (11/09/2014 5:49 AM CDT) Narrative 11/09/2014 5:49 AM CDT Ordered by an unspecified provider. Scanned Document CARDIAC SERVICES ORD ERABLES * LAB RESULTS ORDER (11/08/2014 10:35 PM CDT) Narrative 11/08/2014 10:35 PM CDT Ordered by an unspecified provider. Scanned Document LAB - THERAPEUTIC DR UG MONITORING ORDERABLES * GLUCOSE - POINT OF CARE (11/07/2014 7:40 AM CDT) Glucose WB/POC 94 70 - 106 mg/dL 11/07/2014 9:07 AM CDT [facility] Blood BLOOD SPECIMEN / Unknown 11/07/2014 7:40 AM CDT 11/07/2014 9:07 AM CDT Charlotte Chacon MD LAB - POINT OF CARE ORDERABLES Performing Organization Address City/[facility]/ZIP Co de Phone Number [facility] [address] [phone] * (ABNORMAL) PT-INR (11/07/2014 4:23 AM CDT) PT 14.0(H) 9.5 - 11.6 sec 11/07/2014 5:05 AM CDT [facility] INR 1.4(H) 0.9 - 1.1 11/07/2014 5:05 AM CDT [facility] Blood BLOOD SPECIMEN / Unknown Lab Venipuncture / Unknown 11/07/2014 4:23 AM CDT 11/07/2014 4:49 AM CDT Narrative [facility] - 11/07/2014 5:05 AM CDT Conventional Warfarin Anticoagulant Therapy: INR Reference Range: ??2.0-3.0 Intensive Warfarin Anticoagulant Therapy: INR Reference Range: ? 2.5-3.5 Becky Solorio PharmD LAB - COAGULATIO N ORDERABLES [facility] [address] [place] [address] * (ABNORMAL) GLUCOSE - POINT OF CARE (11/06/2014 7:39 PM CDT) Glucose WB/POC 127(H) 70 - 106 mg/dL 11/06/2014 9:20 PM CDT [facility] Blood BLOOD SPECIMEN / Unknown 11/06/2014 7:39 PM CDT 11/06/2014 9:20 PM CDT Charlotte Chacon MD LAB - POINT OF CARE ORDERABLES Performing Organization Address City/[facility]/ZIP Co de Phone Number [facility] [address] [place] [address] * GLUCOSE - POINT OF CARE (11/06/2014 5:21 PM CDT) Glucose WB/POC 102 70 - 106 mg/dL 11/06/2014 6:27 PM CDT [facility] Blood BLOOD SPECIMEN / Unknown 11/06/2014 5:21 PM CDT 11/06/2014 6:27 PM CDT Charlotte Chacon MD LAB - POINT OF CARE ORDERABLES Performing Organization Address [facility]/ZIP Co de Phone Number [facility] [address] [place] [address] * GLUCOSE - POINT OF CARE (11/06/2014 12:17 PM CDT) Glucose WB/POC 91 70 - 106 mg/dL 11/06/2014 3:03 PM CDT [facility] Blood BLOOD SPECIMEN / Unknown 11/06/2014 12:17 PM CDT 11/06/2014 3:03 PM CDT Charlotte Chacon MD LAB - POINT OF CARE ORDERABLES Performing Organization Address City/[facility]/ZIP Co de Phone Number [facility] [address] [place] [address] * GLUCOSE - POINT OF CARE (11/06/2014 8:08 AM CDT) Glucose WB/POC 88 70 - 106 mg/dL 11/06/2014 8:13 AM CDT [facility] Blood BLOOD SPECIMEN / Unknown 11/06/2014 8:08 AM CDT 11/06/2014 8:13 AM CDT Charlotte Chacon MD LAB - POINT OF CARE ORDERABLES Performing Organization Address [facility] Co de Phone Number [facility] [address] [place] [address] * (ABNORMAL) PT-INR (11/06/2014 5:45 AM CDT) Pathologist [facility] PT 12.6(H) 9.5 - 11.6 sec 11/06/2014 6:21 AM CDT [facility] INR 1.3(H) 0.9 - 1.1 11/06/2014 6:21 AM CDT [facility] Blood BLOOD SPECIMEN / Unknown Lab Venipuncture / Unknown 11/06/2014 5:45 AM CDT 11/06/2014 5:57 AM CDT Narrative [facility] - 11/06/2014 6:21 AM CDT Conventional Warfarin Anticoagulant Therapy: INR Reference Range: ??2.0-3.0 Intensive Warfarin Anticoagulant Therapy: INR Reference Range: ? 2.5-3.5 Becky HayesD LAB - COAGULATIO N ORDERABLES Performing Organization Address City/[facility]/ZIP Co de Phone Number [facility] [address] [place] [address] * (ABNORMAL) GLUCOSE - POINT OF CARE (11/05/2014 8:31 PM CDT) Glucose WB/POC 118(H) 70 - 106 mg/dL 11/06/2014 6:47 AM CDT [facility] Blood BLOOD SPECIMEN / Unknown 11/05/2014 8:31 PM CDT 11/06/2014 6:47 AM CDT Charlotte Chacon MD LAB - POINT OF CARE ORDERABLES Performing Organization Address City/[facility]/ZIP Co de Phone Number [facility] [address] [place] [address] * (ABNORMAL) GLUCOSE - POINT OF CARE (11/05/2014 6:02 PM CDT) Glucose WB/POC 109(H) 70 - 106 mg/dL 11/05/2014 6:06 PM CDT [facility] Blood BLOOD SPECIMEN / Unknown 11/05/2014 6:02 PM CDT 11/05/2014 6:06 PM CDT Charlotte Chacon MD LAB - POINT OF CARE ORDERABLES Performing Organization Address [facility]/ZIP Co de Phone Number [facility] [address] [place] [address] * GLUCOSE - POINT OF CARE (11/05/2014 1:55 PM CDT) Glucose WB/POC 97 70 - 106 mg/dL 11/05/2014 8:23 PM CDT [facility] Blood BLOOD SPECIMEN / Unknown 11/05/2014 1:55 PM CDT 11/05/2014 8:23 PM CDT Charlotte Chacon MD LAB - POINT OF CARE ORDERABLES Performing Organization Address City/[facility]/ZIP Co de Phone Number [facility] [address] [place] [address] * GLUCOSE - POINT OF CARE (11/05/2014 8:21 AM CDT) Glucose WB/POC 106 70 - 106 mg/dL 11/05/2014 8:26 AM CDT [facility] Blood BLOOD SPECIMEN / Unknown 11/05/2014 8:21 AM CDT 11/05/2014 8:26 AM CDT Charlotte Chacon MD LAB - POINT OF CARE ORDERABLES Performing Organization Address City/[facility]/ZIP Co de Phone Number [facility] [address] [place] [address] * (ABNORMAL) PT-INR (11/05/2014 4:29 AM CDT) PT 11.8(H) 9.5 - 11.6 sec 11/05/2014 5:17 AM CDT [facility] INR 1.2(H) 0.9 - 1.1 11/05/2014 5:17 AM CDT [facility] Blood BLOOD SPECIMEN / Unknown Lab Venipuncture / Unknown 11/05/2014 4:29 AM CDT 11/05/2014 4:51 AM CDT Narrative [facility] - 11/05/2014 5:17 AM CDT Conventional Warfarin Anticoagulant Therapy: INR Reference Range: ??2.0-3.0 Intensive Warfarin Anticoagulant Therapy: INR Reference Range: ? 2.5-3.5 Becky HayesD LAB - COAGULATIO N ORDERABLES [facility] [address] [place] [address] * B-TYPE NATRIURETIC PEPTIDE (11/05/2014 4:29 AM CDT) Pathologist [facility] BNP 32 0 - 100 pg/mL 11/05/2014 5:43 AM CDT [facility] Blood BLOOD SPECIMEN / Unknown Lab Venipuncture / Unknown 11/05/2014 4:29 AM CDT 11/05/2014 4:51 AM CDT Kana Garcia MD LAB - CHEMISTRY MIMI LOTT [facility] [address] [place] [address] * MAGNESIUM BLOOD (11/05/2014 4:29 AM CDT) Pathologist [facility] Magnesium 2.0 1.6 - 2.6 mg/dL 11/05/2014 5:16 AM CDT [facility] Blood BLOOD SPECIMEN / Unknown Lab Venipuncture / Unknown 11/05/2014 4:29 AM CDT 11/05/2014 4:52 AM CDT Kana Garcia MD LAB - CHEMISTRY MIMI LOTT Performing Organization Address [facility]/ZIP Co de Phone Number [facility] [address] [place] [address] * T4 FREE (11/05/2014 4:29 AM CDT) T4 Free 1.29 0.65 - 1.34 ng/dL 11/05/2014 5:14 AM CDT [facility] Blood BLOOD SPECIMEN / Unknown Lab Venipuncture / Unknown 11/05/2014 4:29 AM CDT 11/05/2014 4:52 AM CDT Kana Garcia MD LAB - CHEMISTRY MIMI LOTT Performing Organization Address [facility] Co de Phone Number [facility] [address] [place] [address] * TSH (11/05/2014 4:29 AM CDT) TSH 1.75 0.358 - 3.740 uIU/mL 11/05/2014 5:21 AM CDT [facility] Blood BLOOD SPECIMEN / Unknown Lab Venipuncture / Unknown 11/05/2014 4:29 AM CDT 11/05/2014 4:52 AM CDT Kana Garcia MD LAB - CHEMISTRY MIMI LOTT Performing Organization Address [facility] Co de Phone Number [facility] [address] [place] [address] * (ABNORMAL) COMPREHENSIVE METABOLIC PANEL (11/05/2014 4:29 AM CDT) Glucose 95 74 - 106 mg/dL 11/05/2014 5:14 AM CDT [facility] Sodium 139 136 - 145 mmol/L 11/05/2014 5:14 AM CDT [facility] Potassium 3.8 3.5 - 5.1 mmol/L 11/05/2014 5:14 AM CDT [facility] Chloride 106 98 - 107 mmol/L 11/05/2014 5:14 AM CDT [facility] CO2 27 22 - 31 mmol/L 11/05/2014 5:14 AM CDT [facility] Calcium 8.9 8.5 - 10.1 mg/dL 11/05/2014 5:14 AM T [facility] Anion Gap 6 5 - 15 mmol/L 11/05/2014 5:14 AM CDT [facility] BUN 7 7 - 21 mg/dL 11/05/2014 5:14 AM CDT [facility] Creatinine 0.58 0.50 - 1.30 mg/dL 11/05/2014 5:14 AM [facility] Alkaline Phosphatase 156(H) 38 - 126 U/L 11/05/2014 5:14 AM CDT [facility] ALT 24 12 - 78 U/L 11/05/2014 5:14 AM T [facility] AST 22 5 - 40 U/L 11/05/2014 5:14 AM [facility] Protein Total 6.6 6.4 - 8.2 gm/dL 11/05/2014 5:14 AM T [facility] Albumin 2.4(L) 3.4 - 5.0 gm/dL 11/05/2014 5:14 AM T [facility] Bilirubin Total 0.7 0.2 - 1.0 mg/dL 11/05/2014 5:14 AM T [facility] eGFR by MDRD >60 >60 mL/min/1.7 3m2 11/05/2014 5:14 AM T [facility] eGFR by MDRD >60 >60 mL/min/1.7 3m2 11/05/2014 5:14 AM T [facility] Blood BLOOD SPECIMEN / Unknown Lab Venipuncture / Unknown 11/05/2014 4:29 AM CDT 11/05/2014 4:52 AM CDT Kana Garcia MD LAB - CHEMISTRY MIMI LOTT [facility] Organization Address City/State/ZIP Co de Phone Number [facility] [address] [place] [address] * (ABNORMAL) CBC W AUTO DIFFERENTIAL (11/05/2014 4:29 AM CDT) WBC 10.4 4.4 - 10.7 x10^9/L 11/05/2014 5:11 AM [facility] WBC Corrected x10^9/L 11/05/2014 5:11 AM [facility] RBC 3.69(L) 3.80 - 5.20 x10^12/L 11/05/2014 5:11 AM [facility] Hemoglobin 10.9(L) 12.0 - 15.6 gm/dL 11/05/2014 5:11 AM [facility] Hematocrit 33.1(L) 35.9 - 45.5 % 11/05/2014 5:11 AM [facility] MCV 89.7 80.7 - 98.3 fl 11/05/2014 5:11 AM [facility] MCH 29.5 26.7 - 34.0 pg 11/05/2014 5:11 AM [facility] MCHC 32.9 30.8 - 35.9 gm/dL 11/05/2014 5:11 AM [facility] Platelet Count 131(L) 153 - 416 x10^9/L 11/05/2014 5:11 AM [facility] RDW-CV 14.4 12.1 - 14.9 % 11/05/2014 5:11 AM [facility] MPV 12.5 9.4 - 12.9 fl 11/05/2014 5:11 AM [facility] Neutrophils % 62.2 44.0 - 73.0 % 11/05/2014 5:11 AM [facility] Lymphocytes % 21.2 20.0 - 43.0 % 11/05/2014 5:11 AM [facility] Monocytes % 13.6(H) 5.0 - 13.0 % 11/05/2014 5:11 AM [facility] Eosinophils % 2.5 0.0 - 6.0 % 11/05/2014 5:11 AM [facility] Basophils % 0.2 0.0 - 2.0 % 11/05/2014 5:11 AM [facility] Immature Granulocytes 0.3 0 - 1 % 11/05/2014 5:11 AM [facility] Neutrophil Absolute 6.49 2.01 - 7.14 x10^9/L 11/05/2014 5:11 AM [facility] Lymphocytes Absolute 2.21 1.07 - 3.94 x10^9/L 11/05/2014 5:11 AM CDT [facility] Monocytes Absolute 1.42(H) 0.26 - 1.07 x10^9/L 11/05/2014 5:11 AM CDT [facility] Eosinophils Absolute 0.26 0 - 0.47 x10^9/L 11/05/2014 5:11 AM CDT [facility] Basophils Absolute 0.02 0 - 0.08 x10^9/L 11/05/2014 5:11 AM CDT [facility] Immature Granulocytes Absolute 0.03 0.00 - 0.06 x10^9/L 11/05/2014 5:11 AM CDT [facility] Blood BLOOD SPECIMEN / Unknown Lab Venipuncture / Unknown 11/05/2014 4:29 AM CDT 11/05/2014 4:51 AM CDT Kana Garcia MD LAB - HEMATOLOGY ORD ERABLES [facility] [address] [place] [address] * (ABNORMAL) HEMATOCRIT (11/05/2014 4:29 AM CDT) Hematocrit 33.1(L) 35.9 - 45.5 % 11/05/2014 5:11 AM CDT [facility] Blood BLOOD SPECIMEN / Unknown Lab Venipuncture / Unknown 11/05/2014 4:29 AM CDT 11/05/2014 4:51 AM CDT Charlotte Chacon MD LAB - HEMATOLOGY OR DERABLES [facility] [address] [place] [address] * (ABNORMAL) HEMOGLOBIN (11/05/2014 4:29 AM CDT) Hemoglobin 10.9(L) 12.0 - 15.6 gm/dL 11/05/2014 5:11 AM CDT [facility] Blood BLOOD SPECIMEN / Unknown Lab Venipuncture / Unknown 11/05/2014 4:29 AM CDT 11/05/2014 4:51 AM CDT Charlotte Chacon MD LAB - HEMATOLOGY OR DERABLES Performing Organization Address [facility] Co de Phone Number [facility] [address] [place] [address] * (ABNORMAL) GLUCOSE - POINT OF CARE (11/04/2014 9:40 PM CDT) Glucose WB/POC 131(H) 70 - 106 mg/dL 11/04/2014 11:38 PM CDT [facility] Blood BLOOD SPECIMEN / Unknown 11/04/2014 9:40 PM CDT 11/04/2014 11:38 PM CDT Charlotte Chacon MD LAB - POINT OF CARE ORDERABLES Performing Organization Address [facility] de Phone Number [facility] [address] [place] [address] * (ABNORMAL) GLUCOSE - POINT OF CARE (11/04/2014 6:50 PM CDT) Glucose WB/POC 144(H) 70 - 106 mg/dL 11/04/2014 6:52 PM CDT [facility] Blood BLOOD SPECIMEN / Unknown 11/04/2014 6:50 PM CDT 11/04/2014 6:52 PM CDT Charlotte Chacon MD LAB - POINT OF CARE ORDERABLES Performing Organization Address [facility] Co de Phone Number [facility] [address] [place] [address] * (ABNORMAL) GLUCOSE - POINT OF CARE (11/04/2014 3:06 PM CDT) Glucose WB/POC 123(H) 70 - 106 mg/dL 11/04/2014 3:08 PM CDT [facility] Blood BLOOD SPECIMEN / Unknown 11/04/2014 3:06 PM CDT 11/04/2014 3:08 PM CDT Charlotte Chacon MD LAB - POINT OF CARE ORDERABLES Performing Organization Address City/[facility]/ZIP Co de Phone Number [facility] [address] [place] [address] * (ABNORMAL) GLUCOSE - POINT OF CARE (11/04/2014 8:31 AM CDT) Glucose WB/POC 132(H) 70 - 106 mg/dL 11/04/2014 11:52 AM CDT [facility] Blood BLOOD SPECIMEN / Unknown 11/04/2014 8:31 AM CDT 11/04/2014 11:52 AM CDT Charlotte Chacon MD LAB - POINT OF CARE ORDERABLES Performing Organization Address [facility] Co de Phone Number [facility] [address] [place] [address] * PT-INR (11/04/2014 5:28 AM CDT) Pathologist [facility] PT 11.5 9.5 - 11.6 sec 11/04/2014 5:58 AM CDT [facility] INR 1.1 0.9 - 1.1 11/04/2014 5:58 AM CDT [facility] Blood BLOOD SPECIMEN / Unknown Lab Venipuncture / Unknown 11/04/2014 5:28 AM CDT 11/04/2014 5:46 AM CDT Narrative [facility] - 11/04/2014 5:58 AM CDT Conventional Warfarin Anticoagulant Therapy: INR Reference Range: ??2.0-3.0 Intensive Warfarin Anticoagulant Therapy: INR Reference Range: ? 2.5-3.5 Becky HayesD LAB - COAGULATIO N ORDERABLES Performing Organization Address City/[facility]/ZIP Co de Phone Number [facility] [address] [place] [address] * HEMATOCRIT (11/04/2014 5:28 AM CDT) Hematocrit 37.4 35.9 - 45.5 % 11/04/2014 5:51 AM CDT [facility] Blood BLOOD SPECIMEN / Unknown Lab Venipuncture / Unknown 11/04/2014 5:28 AM CDT 11/04/2014 5:45 AM CDT Charlotte Chacon MD LAB - HEMATOLOGY OR DERABLES Performing Organization Address [facility] Co de Phone Number [facility] [address] [place] [address] * HEMOGLOBIN (11/04/2014 5:28 AM CDT) Hemoglobin 12.3 12.0 - 15.6 gm/dL 11/04/2014 5:51 AM CDT [facility] Blood BLOOD SPECIMEN / Unknown Lab Venipuncture / Unknown 11/04/2014 5:28 AM CDT 11/04/2014 5:45 AM CDT Charlotte Chacon MD LAB - HEMATOLOGY OR DERABLES Performing Organization Address [facility] Co de Phone Number [facility] [address] [place] [address] * (ABNORMAL) GLUCOSE - POINT OF CARE (11/03/2014 9:27 PM CDT) Glucose WB/POC 133(H) 70 - 106 mg/dL 11/03/2014 9:31 PM CDT [facility] Blood BLOOD SPECIMEN / Unknown 11/03/2014 9:27 PM CDT 11/03/2014 9:31 PM CDT Narrative [facility] - 11/03/2014 9:31 PM CDT REPEAT TEST Charlotte Chacon MD LAB - POINT OF CARE ORDERABLES Performing Organization Address [facility] Co de Phone Number [facility] [address] [place] [address] * CULTURE MSSA/MRSA (11/03/2014 4:03 PM CDT) Culture Negative for MRSA/MSSA BIANKA 11/04/2014 8:24 PM CDT [facility] MICROBIOLOGY Microbiology SPECIMEN FROM NASAL FOSSAE / Unknown 11/03/2014 4:03 PM CDT 11/03/2014 4:16 PM CDT Charlotte Chacon MD LAB - MICROBIOLOGY ORDERABLES [facility]CROBIOLOG[facility] [address] [place], [place] [address] [phone] * PT-INR (11/03/2014 11:38 AM CDT) Pathologist [facility] PT 10.9 9.5 - 11.6 sec 11/03/2014 12:35 PM CDT [facility] INR 1.1 0.9 - 1.1 11/03/2014 12:35 PM CDT [facility] Blood BLOOD SPECIMEN / Unknown Lab Venipuncture / Unknown 11/03/2014 11:38 AM CDT 11/03/2014 12:18 PM CDT Narrative [facility] - 11/03/2014 12:35 PM CDT Conventional Warfarin Anticoagulant Therapy: INR Reference Range: ??2.0-3.0 Intensive Warfarin Anticoagulant Therapy: INR Reference Range: ? 2.5-3.5 Charlotte Chacon MD LAB - COAGULATION O RDERABLES Performing Organization Address City/[facility]/ZIP Co de Phone Number [facility] [address] [place] [address] * (ABNORMAL) GLUCOSE - POINT OF CARE (11/03/2014 11:06 AM CDT) Pathologist [facility] Glucose WB/POC 149(H) 70 - 106 mg/dL 11/03/2014 12:16 PM CDT [facility] Blood BLOOD SPECIMEN / Unknown 11/03/2014 11:06 AM CDT 11/03/2014 12:16 PM CDT Charlotte Chacon MD LAB - POINT OF CARE ORDERABLES Performing Organization Address City/[facility]/ZIP Co de Phone Number [facility] [address] [place] [address] * (ABNORMAL) GLUCOSE - POINT OF CARE (11/03/2014 9:15 AM CDT) Glucose WB/POC 139(H) 70 - 106 mg/dL 11/03/2014 9:17 AM CDT [facility] Blood BLOOD SPECIMEN / Unknown 11/03/2014 9:15 AM CDT 11/03/2014 9:17 AM CDT Charlotte Chacon MD LAB - POINT OF CARE ORDERABLES Performing Organization Address City/[facility]/ZIP Co de Phone Number [facility] [address] [place] [address] * GLUCOSE - POINT OF CARE (11/03/2014 5:46 AM CDT) Glucose WB/POC 91 70 - 106 mg/dL 11/03/2014 5:48 AM CDT [facility] Blood BLOOD SPECIMEN / Unknown 11/03/2014 5:46 AM CDT 11/03/2014 5:48 AM CDT Charlotte Chacon MD LAB - POINT OF CARE ORDERABLES Performing Organization Address [facility] Co de Phone Number [facility] [address] [place] [address] documented in this encounter Visit Diagnoses Not on filedocumented in this encounter Administered Medications Inactive Administered Medications - up to 3 most recent administrations Medication Order MAR Action Action Date Dose Rate Site 0.9% NaCl infusion at 75 mL/hr, Intravenous, CONTINUOUS, Starting on Sat11/03/14 at 0915, Until Sat11/07/14 at 1547, Post-op $ New Bag/Syringe 11/06/2014 12:39 PM CDT 75 mL/hr $ New Bag/Syringe 11/05/2014 6:00 PM CDT 75 mL/ hr $ New Bag/Syringe 11/05/2014 6:56 AM CDT 75 mL/ hr acetaminophen (TYLENOL) tablet 650 mg 650 mg, Oral, EVERY 4 HOURS PRN, Fever, For temperature GREATER than 101 , Starting on Sat11/03/14 at 0902, Until Sat11/07/14 at 1547, Maximum allowable Acetaminophen amount = 4 Grams (4000 mg) / 24 hours., Post-op $ Given 11/05/2014 12:52 AM CDT 650 mg $ Given 11/04/2014 4:31 PM CDT 650 mg $ Given 11/04/2014 10:28 AM CDT 650 mg calcium carbonate (TUMS) chew tablet 500 mg 500 mg, Oral, 3 TIMES DAILY, First dose on Sat11/03/14 at 0900, Until Discontinued $ Given 11/05/2014 9:25 PM CDT 500 m g clobetasol (TEMOVATE) 0.05 % cream CREA Topical, DAILY, First dose on Sat11/03/14 at 0900, Until Discontinued, Apply to affected area $ Given 11/07/2014 8:31 AM CDT $ Given 11/06/2014 10:27 AM CDT $ Given 11/05/2014 11:06 AM CDT docusate sodium (COLACE) capsule 100 mg 100 mg, Oral, 2 TIMES DAILY, First dose on Sat11/03/14 at 1200, Until Discontinued, Post-op $ Given 11/07/2014 8:25 AM CDT 100 mg $ Given 11/06/2014 9:50 AM CDT 100 mg $ Given 11/05/2014 9:24 PM CDT 100 mg fentaNYL (SUBLIMAZE) injection 50 mcg 50 mcg, Intravenous, EVERY 10 MIN PRN, Moderate Pain, 4 doses, Starting on Sat11/03/14 at 0901, Until Sat11/03/14 at 1028, Maximum total of 4 doses. If patient reaches max total dose, please consult anesthesiologist prior to further administration of pain meds. Hold pain meds if there are signs of hypoventilation., PACU $ Given 11/03/2014 9:32 AM CDT 50 mcg $ Given 11/03/2014 9:12 AM CDT 50 mcg folic acid (FOLVITE) tablet 1 mg 1 mg, Oral, DAILY, First dose on Sat11/03/14 at 1200, Until Discontinued $ Given 11/07/2014 8:25 AM CDT 1 mg $ Given 11/06/2014 10:27 AM CDT 1 mg $ Given 11/05/2014 11:03 AM CDT 1 mg hydrocodone-acetaminophen 7.5-325 MG/15ML solution 15 mL 15 mL, Oral, EVERY 4 HOURS PRN, Moderate Pain, Starting on Rhoda 11/04/14 at 1628, Until Sun /5/15 at 1547, If unable to swallow hydrocodone tablets $ Given 11/07/2014 1:00 PM CDT 15 mL $ Given 11/07/2014 8:25 AM CDT 15 mL $ Given 11/07/2014 3:52 AM CDT 15 mL HYDROmorphone (DILAUDID) 0.2 mg/ml GRANT ADMINISTRATOR Intravenous, GRANT ADMINISTRATOR, Starting on Sat11/03/14 at 0902, Until Sat11/05/14 at 1628, ................. GRANT ADMINISTRATOR Dose: 0.06 mg dose with 12 min lockout (0.3 mg/hr) Contact physician if respiratory rate falls below 10/minute. If respiratory rate < 7/min administer naloxone (Narcan) 0.2 mg IV STAT, begin oxygen at 4-10 LPM, STOP GRANT ADMINISTRATOR immediately, and contact physician., Post-op $ New Bag/Syringe 11/03/2014 9:20 AM CDT 0.06 mg lactated ringers infusion at 20 mL/hr, Intravenous, PRE-OP CONTINUOUS, Starting on Sat11/03/14 at 0515, Until Sat11/03/14 at 1028, Pre-op $ New Bag/Syringe 11/03/2014 5:25 AM CDT 20 mL/hr lidocaine (XYLOCAINE MPF) 1 % injection Infiltration, PRE-OP MULTIPLE, Starting on Sat11/03/14 at 0507, Until Sat11/03/14 at 1028, For 3 doses, May be used pre-op (o.2ml locally to anesthetize IV site prior to insertion if patient has NKA to Lidocaine), Pre-op $ Given 11/03/2014 5:25 AM CDT 0.2 mL lisinopril (PRINIVIL;ZESTRIL) tablet 5 mg 5 mg, Oral, DAILY, First dose on Rhoda 11/04/14 at 0900, Until Discontinued $ Given 11/07/2014 8:25 AM CDT 5 mg $ Given 11/06/2014 9:50 AM CDT 5 mg $ Given 11/05/2014 11:03 AM CDT 5 mg midazolam (VERSED) injection 2 mg 2 mg, Intravenous, PRE-OP ONCE, 1 dose, On Sat11/03/14 at 0507, Pre-op $ Given 11/03/2014 6:16 AM CDT 2 mg senna-docusate (SENOKOT-S) tablet 1 Tab 1 tablet, Oral, 2 TIMES DAILY, First dose on Sat11/03/14 at 1200, Until Discontinued, Post-op $ Given 11/07/2014 8:25 AM CDT 1 tablet $ Given 11/05/2014 9:24 PM CDT 1 tablet vancomycin (VANCOCIN) IVPB 1,500 mg 1,500 mg, at 333.33 mL/hr, Intravenous, PRE-OP CONTINUOUS, Starting on Sat11/03/14 at 0515, Until Sat11/03/14 at 1650 $ New Bag/Syringe 11/03/2014 5:32 AM CDT 1,500 mg 333.33 mL/hr vancomycin (VANCOCIN) IVPB 1,500 mg 1,500 mg, at 333.33 mL/hr, Intravenous, EVERY 12 HOURS, 1 dose, First dose on Sat11/03/14 at 1730, Administer 12 hours after last dose in surgery. Infuse over 90 minutes. Last dose to be completed within 24 hours of close of incision., Post-op $ Given 11/03/2014 5:31 PM CDT 1,500 mg 333.33 mL/hr warfarin (COUMADIN) tablet 6 mg 6 mg, Oral, ONCE WARFARIN, 1 dose, On Sat11/03/14 at 1700, . WASTE DISPOSAL INSTRUCTIONS: P-Listed item. Special Disposal Required. . $ Given 11/03/2014 5:31 PM CDT 6 mg warfarin (COUMADIN) tablet 6 mg 6 mg, Oral, ONCE WARFARIN, 1 dose, On Sat11/04/14 at 1700, . WASTE DISPOSAL INSTRUCTIONS: P-Listed item. Special Disposal Required. . $ Given 11/04/2014 4:30 PM CDT 6 mg warfarin (COUMADIN) tablet 7.5 mg 7.5 mg, Oral, ONCE WARFARIN, 1 dose, On Sat11/05/14 at 1700, . WASTE DISPOSAL INSTRUCTIONS: P-Listed item. Special Disposal Required. . $ Given 11/05/2014 6:03 PM CDT 7.5 mg warfarin (COUMADIN) tablet 7.5 mg 7.5 mg, Oral, ONCE WARFARIN, 1 dose, On Sat11/06/14 at 1700, . WASTE DISPOSAL INSTRUCTIONS: P-Listed item. Special Disposal Required. . $ Given 11/06/2014 6:31 PM CDT 7.5 mg documented in this encounter Active and Recently Administered Medications Times are shown in CDT. Scheduled Medication Order 11/05/2014 11/06/2014 11/07/2014 calcium carbonate (TUMS) chew tablet 500 mg (CANCELED) 500 mg, Oral, 3 TIMES DAILY, First dose on Sat11/03/14 at 0900, Until Discontinued 1103 (Not Administered - Provider: Morris hCristian RN - Reason: Refused-Patient)1400 (Not Administered - Provider: Morris Christian RN - Reason: Refused-Patient)2125 ($ Given - Provider: Rickey Mcgill, RN) 0900 (Not Administered - Provider: Morris Christian RN - Reason: Refused-Patient)1400 (Not Administered - Provider: Morris Christian RN - Reason: Refused-Patient)2129 (Not Administered - Provider: Juanita Delgado RN - Reason: Refused-Patient) 0825 (Not Administered - Provider: Simin Jaeger RN - Reason: Refused-Patient)1400 (Due) clobetasol (TEMOVATE) 0.05 % cream CREA (CANCELED) Topical, DAILY, First dose on Sat11/03/14 at 0900, Until Discontinued, Apply to affected area 1106 ($ Given - Provider: Morris Christian RN) 1027 ($ Given - Provider: Morris Christian RN) 0831 ($ Given - Provider: Simin Jaeger, RN) docusate sodium (COLACE) capsule 100 mg (CANCELED) 100 mg, Oral, 2 TIMES DAILY, First dose on Sat11/03/14 at 1200, Until Discontinued, Post-op 1103 (Not Administered - Provider: Morris Christian RN - Reason: Refused-Patient)2124 ($ Given - Provider: Rickey Mcgill, RN) 0950 ($ Given - Provider: Morris Christian RN)2128 (Not Administered - Provider: Juanita Delgado RN - Reason: Refused-Patient) 0825 ($ Given - Provider: Simin Jaeger, TESHA) folic acid (FOLVITE) tablet 1 mg (CANCELED) 1 mg, Oral, DAILY, First dose on Sat11/03/14 at 1200, Until Discontinued 1103 ($ Given - Provider: Morris Christian RN) 1027 ($ Given - Provider: Morris Christian RN) 0825 ($ Given - Provider: Simin Jaeger, RN) lisinopril (PRINIVIL;ZESTRIL) tablet 5 mg (CANCELED) 5 mg, Oral, DAILY, First dose on Sat11/04/14 at 0900, Until Discontinued 1103 ($ Given - Provider: Morris Christian RN) 0950 ($ Given - Provider: Morris Christian RN) 0825 ($ Given - Provider: Simin Jaeger, RN) senna-docusate (SENOKOT-S) tablet 1 Tab (CANCELED) 1 tablet, Oral, 2 TIMES DAILY, First dose on Sat11/03/14 at 1200, Until Discontinued, Post-op 1103 (Not Administered - Provider: Morris Christian RN - Reason: Refused-Patient)2124 ($ Given - Provider: Rickey Mcgill, RN) 0900 (Not Administered - Provider: Morris Christian RN - Reason: Refused-Patient)2129 (Not Administered - Provider: Juanita Delgado RN - Reason: Refused-Patient) 0825 ($ Given - Provider: Simin Jaeger, RN) warfarin (COUMADIN) tablet 7.5 mg (COMPLETED) 7.5 mg, Oral, ONCE WARFARIN, 1 dose, On Sat11/05/14 at 1700, . WASTE DISPOSAL INSTRUCTIONS: P-Listed item. Special Disposal Required. . 1803 ($ Given - Provider: Morris Christian RN) warfarin (COUMADIN) tablet 7.5 mg (COMPLETED) 7.5 mg, Oral, ONCE WARFARIN, 1 dose, On 11/06/14 at 1700, . WASTE DISPOSAL INSTRUCTIONS: P-Listed item. Special Disposal Required. . 1831 ($ Given - Provider: Morris Christian RN) Continuous Medication Order 11/05/2014 11/06/2014 11/07/2014 0.9% NaCl infusion (CANCELED) at 75 mL/hr, Intravenous, CONTINUOUS, Starting on Sat11/03/14 at 0915, Until Sat11/07/14 at 1547, Post-op 0655 (Stopped - Provider: Kendal Deleon, RN)0656 ($ New Bag/Syringe - Provider: Kendal Deleon RN)1800 ($ New Bag/Syringe - Provider: Rickey Mcgill RN) 1239 ($ New Bag/Syringe - Provider: Morris Christian RN) PRN Medication Order 11/05/2014 11/06/2014 11/07/2014 acetaminophen (TYLENOL) tablet 650 mg (CANCELED) 650 mg, Oral, EVERY 4 HOURS PRN, Fever, For temperature GREATER than 101 , Starting on 11/03/14 at 0902, Until 11/07/14 at 1547, Maximum allowable Acetaminophen amount = 4 Grams (4000 mg) / 24 hours., Post-op 0052 ($ Given - Provider: Kendal Deleon RN) hydrocodone-acetaminophe n 7.5-325 MG/15ML solution 15 mL 15 mL, Oral, EVERY 4 HOURS PRN, Moderate Pain, Starting on Rhoda 11/04/14 at 1628, Until 11/07/14 at 1547, If unable to swallow hydrocodone tablets 1347 ($ Given - Provider: Morris Christian RN)1803 ($ Given - Provider: Morris Christian RN) 0119 ($ Given - Provider: Rickey Mcgill RN)0946 ($ Given - Provider: oMrris Christian RN)1532 ($ Given - Provider: Morris Christian RN)2129 ($ Given - Provider: Juanita Delgado RN - Comment: 10/13) 0352 ($ Given - Provider: Juanita Delgado RN - Comment: 08/13)0825 ($ Given - Provider: Simin Jaeger RN)1300 ($ Given - Provider: Jose De Jesus Rinaldi, TESHA) documented in this encounter Additional Health Concerns Infection Onset Date Last Indicated Resolved Time 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
--- OUTSIDE RECORDS SUMMARY | 2024-05-11 12:07 | XMS_ITS | Encounter Summary ---
Author Organization [facility] Address [address] [place] [address] Care Team Providers Care Science Job Titles Name Role Phone NormaFlynnSummer K RN Unavailable [phone] Jacki Cabrera MD Primary Care Provider Reason for Visit * Reason Onset Date Comments Follow-up 03/15/2021 Encounter Details Date Type Department Care Team (Late st Contact Info) Description 03/15/2021 Telephone [facility] [address] [place] [address] William Hammonds MD [address] [place] [address] [place] [id number] Follow-up Social History Tobacco Use Types Packs/Day Years Used Date Smoking Tobacco: Former Cigarettes 1 19 1 - 02/17/2013 Smokeless Tobacco: Never Alcohol Use Standard Drinks/Week Comments No 0 [...] No 11/07/2014 documented as of this encounter Miscellaneous Notes * Telephone Encounter - Sara Edge, RN - 03/15/2021 1:24 PM CST Contact patient. Reviewed surgery instructions for tomorrow. Arrival time [address] Surgery department[address] NPO after midnight. Patient verbalize understanding with no further questions. 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
--- OUTSIDE RECORDS SUMMARY | 2024-05-11 12:07 | XMS_ITS | Encounter Summary ---
Author Organization [facility] Address [address] 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 11/03/2014 7:00 AM Posted PSYCHIATRIC MAIN OR OR 05 Orthopedics Assistant Hall Director Admit Surgical Elective > 5 days Panel 1 Procedure LRB Anes Op Region Wound Class Comments ARTHROPLASTY TOTAL KNEE REVI BECKY HINGED KNEE Right General Knee Clean Surgeon Surgeon Role Service Panel Charlotte Chacon MD Primary Orthopedics 1 Lionel Kiran MD Assisting Orthopedics 1 Special Needs CAMPO NEPHEW JESUS AVAIL For 7/1/15 7 AM case, S&N rep Baldomero Alexander notified, TK documented in this encounter Social History Tobacco [...] Chacon MD - 11/07/2014 6:16 AM CDT [facility] DISCHARGE SUMMARY PATIENT NAME: KAROLINA RAMOS MR#: [id number] SEX: F CSN: [id number] PHYS: Charlotte Chacon M.D. : 1955 ROOM# [...] MEDICATIONS: As per the instructions. CHAVA/EDUARD #: [id number] documented in this encounter Medications at Time [...] of this encounter Progress Notes * Becky Solorio PharmD - 11/11/2014 10:02 AM CDT Spoke w/ pt who states HH has been coming to her home & calling Dr. Rowell's office w/ INR results. * Simin Jaeger RN - 11/07/2014 11:51 AM CDT Kaela from [facility] notified that patient is being discharged today. Orders Faxed. Simin Jaeger RN 11/07/2014 11:52 AM * Alison Barfield, OT - 11/07/2014 11:35 AM CDT Pt. [...] would like some equipment first. Feeding: Complete [place] Oral Facial Hygiene: Supervision, Set-Up, Cues Upper Body Dressing: Stand By Assist Lower Body Dressing: Supervision, Set-Up, Cues (using appropriate AD for incr Indep) Toileting: Supervision, Set-Up, Cues Memory: Appears intact Supine to Sit: Modified [place] (using leg oyster shucker for RLE) Sit to Supine: Modified [place] (using leg oyster shucker for RLE) Sit to Stand: Supervision, Set-Up, Cues Stand to Sit: Supervision, Set-Up, Cues Toilet Transfers: Supervision, Set-Up, Cues (stand pivot to C) Recommendations: Call light and phone left in reach of patient. If this is the last Occupational Therapy visit, this serves as the discharge summary. Alison Nugent OTR/L [phone] * Pia Hernadez, PT - 11/07/2014 9:42 AM CDT Physical Therapy Treatment Summary Nurse reported pt ready for PT. Supine ankle pumps, QS, heel slides w/sheet assist, & hip abd x10. SAQ AAROM x 5. Pt left w/call donovan and phone in reach. The following assessments were completed: Sit to Supine: Modified [place] Supine to Sit: Modified [place] Sit to Stand: Supervision, Set-Up, Cues Chair [...] note serves a Discharge Summary. Pia Hernadez, [id number] * Charlotte Chacon MD - 11/07/2014 5:59 [...] assessments were completed: Sit to Supine: Modified [place] Supine to Sit: Modified [place] Sit to Stand: Minimal Assistance Chair to [...] note serves a Discharge Summary. Pia Hernadez [id number] * Pia Hernadez PT - 11/06/2014 11:28 AM CDT Physical [...] assessments were completed: Sit to Supine: Modified [place] Supine to Sit: Modified [place] Sit to Stand: Minimal Assistance Chair to [...] note serves a Discharge Summary. Pia Hernadez, [id number] * Pia Hernadez PT - 11/06/2014 11:27 AM CDT Problem: Transfers Goal: STG - Patient will perform bed mobility Mod I Outcome: Goal Met Date Met: 11/06/14 * Adriane Sorto RN - 11/06/2014 10:45 AM CDT Kaela from [facility] would like to be notified when patient is discharged. If it is the weekend please call [phone] and if discharged during the week please call [phone] * Kana Garcia MD - 11/06/2014 10:18 [...] Garcia MD 11/06/2014 10:18 AM * Hortencia Foster [facility] - 11/06/2014 9:27 AM CDT Warfarin per [...] x 1 2. Daily INR Hortencia Foster [facility] 11/06/2014 9:28 AM * Charlotte Chacon MD - 11/06/2014 7:31 AM CDT Alert. No chest pain or sob nv ok wound ok. Progressing. hasnt worked on stairs yet. Will work on that today and plan discharge for tomorrow. * Pia Hernadez PT - 11/05/2014 3:33 PM CDT Physical [...] note serves a Discharge Summary. Pia Hernadez, [id number] * Kana Garcia MD - 11/05/2014 1:57 [...] ??F 99.1 ??F Resp: 16 16 16 Weight: SpO2: 96% 93% [...] 62.2 44.0-73.0 % Lymph 21.2 20.0-43.0 % [place] 13.6 (*) 5.0-13.0 % Eos 2.5 0.0-6.0 % Baso 0.2 0.0-2.0 % Immature Grans 0.3 0-1 % Neutro Abs 6.49 2.01-7.14 x10^9/L Lymph Abs 2.21 1.07-3.94 x10^9/L [place] Abs 1.42 (*) 0.26-1.07 x10^9/L Eosin Abs [...] mg, Oral, QDAY HYDROmorphone (DILAUDID) 0.2 mg/ml ENGRAVER OPTICAL FRAMES, Intravenous, ENGRAVER OPTICAL FRAMES insulin lispro (humaLOG) vial 0-40 Units, Subcutaneous, [...] note serves a Discharge Summary. Pia Hernadez, [id number] * Cassandra Julien, PharmD - 11/05/2014 7:32 [...] 37.4 41.5 Recent Labs Component Name 11/05/14 0429 11/04/14 0528 11/03/14 1138 10/18/14 1314 INR 1.2* 1.1 1.1 1.0 Current Warfarin Dose: 6mg x 2 Bridge therapy: None Assessment: Subtherapeutic Plan: 1. Warfarin Dose: 7.5mg x 1 2. Daily INR Cassandra Julien PHARMD 11/05/2014 7:32 AM * Charlotte Chacon [...] note serves a Discharge Summary. Pia Hernadez, [id number] * Summer Green RN - 11/04/2014 2:00 PM CDT Case Management Initial Assessment Case Management screen completed, welcome letter given. Met with patient Lives with: +Alone Family Support (name and phone): Extended Emergency Contact Information Primary Emergency Contact: YEISON TOBAR Address: [facility] Relation: Son Secondary Emergency Contact: ROSETTE TOBAR [...] Jasiel Bass If no PCP, action taken: RUSSELL Referral: no If patient requires HHC at [...] physician home care preference. Patient lives in [facility]. Awaiting determination on home care company. Patient PCP confirmed and changed in epic. Summer [facility] x [phone] Will continue to follow. For any questions or needs please contact: Glaze Grinder Name/Phone number: Summer Green RN * Hortencia [...] on occasion. 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 Pia Hernadez, [id number] * Becky Solorio PharmD - 11/04/2014 6:22 [...] can be continued. Thank you! * Ghazala Sanchez, RN - 11/03/2014 6:29 PM CDT Shift summary [id number] only Pt up to chair, back to bed with 2 person staff assist, tolerated well, gaite steady. Pt using customer experience professional for pain control. VSS. Neurovasc checks to RLE wnl. IVF's infusing as ordered. CPM -5-55 degrees, pttolerating well. * Summer Green RN - 11/03/2014 4:41 PM CDT Nursing updated that Dr. Chacon ordered Dr. Garcia to see this patient. They plan to address. Summer [facility] x [phone] * Pia Hernadez, PT - 11/03/2014 3:42 PM CDT Spoke to Rn maite Johnson to see pt. PT evaluation completed, see [...] Refer to Care Plan for short and senior living goals RECOMMENDATIONS: Continue PT daily x 3 days Adaptive equipment/DME Training, Energy conservation/Work simplification, Education/Training, Home Exercise Program, LE AROM/Strengthening, Positioning/Splinting, Transfer Training, Gait Training andStair Training Pia Hernadez, [id number] * Joselyn Reynolds, RD/KHANG - 11/03/2014 3:31 PM CDT Initial Nutrition Assessment Comments: Consult received for carbohydrate counting assessment. Pt reports latest RulL5Q=9.3%, down from over 11% in December. RD briefly reviewed consistent carbohydrate diet. RD also educated pt on consistent vitamin K diet. Pt's diet is lacking protein as she is s/p bariatric surgery and is unable to consume a high volume of food. Reviewed s/p bariatric surgery vitamin supplementation recommendations with pt. RD contacted [employer] to have Optisource and Isopure sent over [...] Pain affecting intake: No Estimated Needs: KCAL: [id number] (25-30 kcal/kg ABW) Protein (g): 64-83 (1-1.3 [...] Chacon MD - 10/31/2014 7:54 AM CDT [facility] PREOPERATIVE HISTORY AND PHYSICAL PATIENT NAME: KAROLINA RAMOS MR#: [id number] ROOM#: CSN: [id number] ADMISSION DATE: 11/03/2014 SEX: F PHYSICIAN'S NAME: [...] the possibility of complication. End of Report. CHAVA/EDUARD #: [id number] documented in this encounter Consult Notes * [...] Tubal ligation, laparoscopic 1976 ??? Breast reduction 1994 bilat ??? Back surgery 1996 L4L5 ??? 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 Smoking [...] TO HOME CARE Home care order received. [facility] has been arranged to follow after discharge Due to where patient lives in [place] Thank you for this referraL. Gabby Valero L.P.N. Admission Coordinator [facility] [place] [phone] * Raquel Khan RN - 11/03/2014 3:16 [...] Ramos Date of admit 11/03/2014 Date 11/03/2014 aJsiel Bass CC: medical management post surgery .HPI: [...] results for input(s): BNP in the last 06047 hours. No results for input(s): TROPONIN in the last 09331 hours. No results for input(s): TSH in the last 91519 hours. Recent Labs Component Name 10/18/14 1310 [...] Chacon MD - 11/03/2014 9:27 AM CDT [facility] OPERATIVE REPORT PATIENT NAME: KAROLINA RAMOS MR#: [id number] ROOM#: [facility] CSN: [id number] SURGEON: CHARLOTTE CHACON M.D. SEX: F : 1955 SURGERY DATE: PREOPERATIVE DIAGNOSIS: Unstable painful right total knee replacement. 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 OPERATION PERFORMED: Right Campo Nephew legion revision hinged total knee replacement. SURGEON: Charlotte [...] condition with stable vital signs. CHAVA/MODL #: [id number] * Operative - Lionel Kiran MD - 11/03/2014 9:08 AM CDT [facility] OPERATIVE REPORT PATIENT NAME: KAROLINA RAMOS MR#: [id number] ROOM#: [facility] CSN: [id number] SURGEON: LIONEL KIRAN M.D. SEX: F : 1955 SURGERY DATE: 11/03/2014 PREOPERATIVE DIAGNOSIS: Status post total knee arthroplasty with instability. POSTOPERATIVE DIAGNOSIS: Status post total knee arthroplasty with instability. PROCEDURE: Revision right total knee arthroplasty (Campo Nephew hinged knee). SURGEON: Dr. Chacon TRAFFIC ENGINEERING DIRECTOR: Dr. Kiran What was done, the patient was administered IV antibiotics and general anesthesia. After routine prep and drape of the right knee through the previous anterior incision, removal of the unstable previous total knee arthroplasty was carried out, along with its associated cement. A Campo Nephew hinged right knee prosthesis was then inserted (cemented). Dr. Chacon was the primary surgeon. I functioned as the 1st assistant hall director. Procedure was ended. The patient tolerated the procedure well. EAD/MODL #: [id number] cc: Lionel Kiran M.D. documented in this [...] - 106 mg/dL 11/07/2014 9:07 AM CDT [facility] Blood BLOOD SPECIMEN / Unknown 11/07/2014 7:40 AM CDT 11/07/2014 9:07 AM CDT Charlotte Chacon MD LAB - POINT OF CARE ORDERABLES [facility] [address] [place] [address] * (ABNORMAL) PT-INR (11/07/2014 4:23 AM CDT) PT 14.0(H) 9.5 - 11.6 sec 11/07/2014 5:05 AM CDT [facility] INR 1.4(H) 0.9 - 1.1 11/07/2014 5:05 AM CDT [facility] Blood BLOOD SPECIMEN / Unknown Lab Venipuncture / Unknown 11/07/2014 4:23 AM CDT 11/07/2014 4:49 AM CDT Narrative [facility] - 11/07/2014 5:05 AM CDT Conventional Warfarin Anticoagulant Therapy: INR Reference Range: ??2.0-3.0 Intensive Warfarin Anticoagulant Therapy: INR Reference Range: ? 2.5-3.5 Becky Solorio PharmD LAB - COAGULATIO N ORDERABLES Performing Organization Address City/[facility]/ZIP Co de Phone Number [facility] [address] [place] [address] * (ABNORMAL) GLUCOSE - POINT OF CARE (11/06/2014 7:39 PM CDT) Glucose WB/POC 127(H) 70 - 106 mg/dL 11/06/2014 9:20 PM CDT [facility] Blood BLOOD SPECIMEN / Unknown 11/06/2014 7:39 PM CDT 11/06/2014 9:20 PM CDT Charlotte Chacon MD LAB - POINT OF CARE ORDERABLES Performing Organization Address [facility] Co de Phone Number [facility] [address] [place] [address] * GLUCOSE - POINT OF CARE (11/06/2014 5:21 PM CDT) Glucose WB/POC 102 70 - 106 mg/dL 11/06/2014 6:27 PM CDT [facility] Blood BLOOD SPECIMEN / Unknown 11/06/2014 5:21 PM CDT 11/06/2014 6:27 PM CDT Charlotte Chacon MD LAB - POINT OF CARE ORDERABLES Performing Organization Address [facility] Co de Phone Number [facility] [address] [place] [address] * GLUCOSE - POINT OF CARE (11/06/2014 12:17 PM CDT) Glucose WB/POC 91 70 - 106 mg/dL 11/06/2014 3:03 PM CDT [facility] Blood BLOOD SPECIMEN / Unknown 11/06/2014 12:17 PM CDT 11/06/2014 3:03 PM CDT Charlotte Chacon MD LAB - POINT OF CARE ORDERABLES Performing Organization Address City/[facility]/ZIP Co de Phone Number [facility] [address] [place] [address] * GLUCOSE - POINT OF CARE (11/06/2014 8:08 AM CDT) Glucose WB/POC 88 70 - 106 mg/dL 11/06/2014 8:13 AM CDT [facility] Blood BLOOD SPECIMEN / Unknown 11/06/2014 8:08 AM CDT 11/06/2014 8:13 AM CDT Charlotte Chacon MD LAB - POINT OF CARE ORDERABLES Performing Organization Address [facility] de Phone Number [facility] [address] [place] [address] * (ABNORMAL) PT-INR (11/06/2014 5:45 AM CDT) PT 12.6(H) 9.5 - 11.6 sec 11/06/2014 6:21 AM CDT [facility] INR 1.3(H) 0.9 - 1.1 11/06/2014 6:21 AM CDT [facility] Blood BLOOD SPECIMEN / Unknown Lab Venipuncture / Unknown 11/06/2014 5:45 AM CDT 11/06/2014 5:57 AM CDT Narrative [facility] - 11/06/2014 6:21 AM CDT Conventional Warfarin Anticoagulant Therapy: INR Reference Range: ??2.0-3.0 Intensive Warfarin Anticoagulant Therapy: INR Reference Range: ? 2.5-3.5 Becky HayesD LAB - COAGULATIO N ORDERABLES Performing Organization Address [facility]/ZIP Co de Phone Number [facility] [address] [place] [address] * (ABNORMAL) GLUCOSE - POINT OF CARE (11/05/2014 8:31 PM CDT) Glucose WB/POC 118(H) 70 - 106 mg/dL 11/06/2014 6:47 AM CDT [facility] Blood BLOOD SPECIMEN / Unknown 11/05/2014 8:31 PM CDT 11/06/2014 6:47 AM CDT Charlotte Chacon MD LAB - POINT OF CARE ORDERABLES Performing Organization Address City/[facility]/ZIP Co de Phone Number [facility] [address] [place] [address] * (ABNORMAL) GLUCOSE - POINT OF CARE (11/05/2014 6:02 PM CDT) Glucose WB/POC 109(H) 70 - 106 mg/dL 11/05/2014 6:06 PM CDT [facility] Blood BLOOD SPECIMEN / Unknown 11/05/2014 6:02 PM CDT 11/05/2014 6:06 PM CDT Charlotte Chacon MD LAB - POINT OF CARE ORDERABLES Performing Organization Address [facility]/ZIP Co de Phone Number [facility] [address] [place] [address] * GLUCOSE - POINT OF CARE (11/05/2014 1:55 PM CDT) Glucose WB/POC 97 70 - 106 mg/dL 11/05/2014 8:23 PM CDT [facility] Blood BLOOD SPECIMEN / Unknown 11/05/2014 1:55 PM CDT 11/05/2014 8:23 PM CDT Charlotte Chacon MD LAB - POINT OF CARE ORDERABLES Performing Organization Address [facility]/ZIP Co de Phone Number [facility] [address] [place] [address] * GLUCOSE - POINT OF CARE (11/05/2014 8:21 AM CDT) Glucose WB/POC 106 70 - 106 mg/dL 11/05/2014 8:26 AM CDT [facility] Blood BLOOD SPECIMEN / Unknown 11/05/2014 8:21 AM CDT 11/05/2014 8:26 AM CDT Charlotte Chacon MD LAB - POINT OF CARE ORDERABLES Performing Organization Address City/[facility]/ZIP Co de Phone Number [facility] [address] [place] [address] * (ABNORMAL) PT-INR (11/05/2014 4:29 AM CDT) [facility] PT 11.8(H) 9.5 - 11.6 sec 11/05/2014 5:17 AM CDT [facility] INR 1.2(H) 0.9 - 1.1 11/05/2014 5:17 AM CDT [facility] Blood BLOOD SPECIMEN / Unknown Lab Venipuncture / Unknown 11/05/2014 4:29 AM CDT 11/05/2014 4:51 AM CDT Narrative [facility] - 11/05/2014 5:17 AM CDT Conventional Warfarin Anticoagulant Therapy: INR Reference Range: ??2.0-3.0 Intensive Warfarin Anticoagulant Therapy: INR Reference Range: ? 2.5-3.5 Becky Solorio PharmD LAB - COAGULATIO N ORDERABLES Performing Organization Address [facility] Co de Phone Number [facility] [address] [place] [address] * B-TYPE NATRIURETIC PEPTIDE (11/05/2014 4:29 AM CDT) [facility] BNP 32 0 - 100 pg/mL 11/05/2014 5:43 AM CDT [facility] Blood BLOOD SPECIMEN / Unknown Lab Venipuncture / Unknown 11/05/2014 4:29 AM CDT 11/05/2014 4:51 AM CDT Kana Garcia MD LAB - CHEMISTRY MIMI LOTT [facility] [address] [place] [address] * MAGNESIUM BLOOD (11/05/2014 4:29 AM CDT) Magnesium 2.0 1.6 - 2.6 mg/dL 11/05/2014 5:16 AM CDT [facility] Blood BLOOD SPECIMEN / Unknown Lab Venipuncture / Unknown 11/05/2014 4:29 AM CDT 11/05/2014 4:52 AM CDT Kana Garcia MD LAB - CHEMISTRY M[facility]I LOTT Performing Organization Address City/[facility]/ZIP Co de Phone Number [facility] [address] [place] [address] * T4 FREE (11/05/2014 4:29 AM CDT) T4 Free 1.29 0.65 - 1.34 ng/dL 11/05/2014 5:14 AM CDT [facility] Blood BLOOD SPECIMEN / Unknown Lab Venipuncture / Unknown 11/05/2014 4:29 AM CDT 11/05/2014 4:52 AM CDT Kana Garcia MD LAB - CHEMISTRY M[facility]I LOTT Performing Organization Address [facility]/ZIP Co de Phone Number [facility] [address] [place] [address] * TSH (11/05/2014 4:29 AM CDT) TSH 1.75 0.358 - 3.740 uIU/mL 11/05/2014 5:21 AM CDT [facility] Blood BLOOD SPECIMEN / Unknown Lab Venipuncture / Unknown 11/05/2014 4:29 AM CDT 11/05/2014 4:52 AM CDT Kana Garcia MD LAB - CHEMISTRY [facility]I LOTT Performing Organization Address City/[facility]/ZIP Co de Phone Number [facility] [address] [place] [address] * (ABNORMAL) COMPREHENSIVE METABOLIC PANEL (11/05/2014 4:29 AM [facility]) [facility] Glucose 95 74 - 106 mg/dL 11/05/2014 5:14 AM [facility] Sodium 139 136 - 145 mmol/L 11/05/2014 5:14 AM [facility] Potassium 3.8 3.5 - 5.1 mmol/L 11/05/2014 5:14 AM [facility] Chloride 106 98 - 107 mmol/L 11/05/2014 5:14 AM [facility] CO2 27 22 - 31 mmol/L 11/05/2014 5:14 AM [facility] Calcium 8.9 8.5 - 10.1 mg/dL 11/05/2014 5:14 AM [facility] Anion Gap 6 5 - 15 mmol/L 11/05/2014 5:14 AM [facility] BUN 7 7 - 21 mg/dL 11/05/2014 5:14 AM [facility] Creatinine 0.58 0.50 - 1.30 mg/dL 11/05/2014 5:14 AM [facility] Alkaline Phosphatase 156(H) 38 - 126 U/L 11/05/2014 5:14 AM [facility] ALT 24 12 - 78 U/L 11/05/2014 5:14 AM [facility] AST 22 5 - 40 U/L 11/05/2014 5:14 AM [facility] Protein Total 6.6 6.4 - 8.2 gm/dL 11/05/2014 5:14 AM [facility] Albumin 2.4(L) 3.4 - 5.0 gm/dL 11/05/2014 5:14 AM [facility] Bilirubin Total 0.7 0.2 - 1.0 mg/dL 11/05/2014 5:14 AM [facility] eGFR by MDRD >60 >60 mL/min/1.7 3m2 11/05/2014 5:14 AM [facility] eGFR by MDRD >60 >60 mL/min/1.7 3m2 11/05/2014 5:14 AM [facility] Blood BLOOD SPECIMEN / Unknown Lab Venipuncture / Unknown 11/05/2014 4:29 AM CDT 11/05/2014 4:52 AM CDT Kana Garcia MD LAB - CHEMISTRY [facility]I LOTT [facility] Organization Address City/State/ZIP Co de Phone Number [facility] [address] [place] [address] * (ABNORMAL) CBC W AUTO DIFFERENTIAL (11/05/2014 4:29 AM CDT) [facility] Signature WBC 10.4 4.4 - 10.7 x10^9/L 11/05/2014 5:11 AM CDT [facility] WBC Corrected x10^9/L 11/05/2014 5:11 AM CDT [facility] RBC 3.69(L) 3.80 - 5.20 x10^12/L 11/05/2014 5:11 AM CDT [facility] Hemoglobin 10.9(L) 12.0 - 15.6 gm/dL 11/05/2014 5:11 AM CDT [facility] Hematocrit 33.1(L) 35.9 - 45.5 % 11/05/2014 5:11 AM CDT [facility] MCV 89.7 80.7 - 98.3 fl 11/05/2014 5:11 AM CDT [facility] MCH 29.5 26.7 - 34.0 pg 11/05/2014 5:11 AM CDT [facility] MCHC 32.9 30.8 - 35.9 gm/dL 11/05/2014 5:11 AM CDT [facility] Platelet Count 131(L) 153 - 416 x10^9/L 11/05/2014 5:11 AM CDT [facility] RDW-CV 14.4 12.1 - 14.9 % 11/05/2014 5:11 AM CDT [facility] MPV 12.5 9.4 - 12.9 fl 11/05/2014 5:11 AM CDT [facility] Neutrophils % 62.2 44.0 - 73.0 % 11/05/2014 5:11 AM CDT [facility] Lymphocytes % 21.2 20.0 - 43.0 % 11/05/2014 5:11 AM CDT [facility] Monocytes % 13.6(H) 5.0 - 13.0 % 11/05/2014 5:11 AM CDT [facility] Eosinophils % 2.5 0.0 - 6.0 % 11/05/2014 5:11 AM CDT [facility] Basophils % 0.2 0.0 - 2.0 % 11/05/2014 5:11 AM CDT [facility] Immature Granulocytes 0.3 0 - 1 % 11/05/2014 5:11 AM CDT [facility] Neutrophil Absolute 6.49 2.01 - 7.14 x10^9/L 11/05/2014 5:11 AM CDT [facility] Lymphocytes Absolute 2.21 1.07 - 3.94 x10^9/L 11/05/2014 5:11 AM CDT [facility] Monocytes Absolute 1.42(H) 0.26 - 1.07 x10^9/L 11/05/2014 5:11 AM CDT [facility] Eosinophils Absolute 0.26 0 - 0.47 x10^9/L 11/05/2014 5:11 AM CDT [facility] Basophils Absolute 0.02 0 - 0.08 x10^9/L 11/05/2014 5:11 AM CDT [facility] Immature Granulocytes Absolute 0.03 0.00 - 0.06 x10^9/L 11/05/2014 5:11 AM CDT [facility] Blood BLOOD SPECIMEN / Unknown Lab Venipuncture / Unknown 11/05/2014 4:29 AM CDT 11/05/2014 4:51 AM CDT Kana Garcia MD LAB - HEMATOLOGY ORD ERABLES [facility] [address] [place] [address] * (ABNORMAL) HEMATOCRIT (11/05/2014 4:29 AM CDT) [facility] Signature Hematocrit 33.1(L) 35.9 - 45.5 % 11/05/2014 5:11 AM CDT [facility] Blood BLOOD SPECIMEN / Unknown Lab Venipuncture / Unknown 11/05/2014 4:29 AM CDT 11/05/2014 4:51 AM CDT Charlotte Chacon MD LAB - HEMATOLOGY OR DERABLES Performing Organization Address [facility] [facility] Co de Phone Number [facility] [address] [place] [address] * (ABNORMAL) HEMOGLOBIN (11/05/2014 4:29 AM CDT) Hemoglobin 10.9(L) 12.0 - 15.6 gm/dL 11/05/2014 5:11 AM CDT [facility] Blood BLOOD SPECIMEN / Unknown Lab Venipuncture / Unknown 11/05/2014 4:29 AM CDT 11/05/2014 4:51 AM CDT Charlotte Chacon MD LAB - HEMATOLOGY OR DERABLES Performing Organization Address [facility] Co de Phone Number [facility] [address] [place] [address] * (ABNORMAL) GLUCOSE - POINT OF CARE (11/04/2014 9:40 PM CDT) Glucose WB/POC 131(H) 70 - 106 mg/dL 11/04/2014 11:38 PM CDT [facility] Blood BLOOD SPECIMEN / Unknown 11/04/2014 9:40 PM CDT 11/04/2014 11:38 PM CDT Charlotte Chacon MD LAB - POINT OF CARE ORDERABLES Performing Organization Address [facility] Co de Phone Number [facility] [address] [place] [address] * (ABNORMAL) GLUCOSE - POINT OF CARE (11/04/2014 6:50 PM CDT) Glucose WB/POC 144(H) 70 - 106 mg/dL 11/04/2014 6:52 PM CDT [facility] Blood BLOOD SPECIMEN / Unknown 11/04/2014 6:50 PM CDT 11/04/2014 6:52 PM CDT Charlotte Chacon MD LAB - POINT OF CARE ORDERABLES Performing Organization Address [facility]/ZIP Co de Phone Number [facility] [address] [place] [address] * (ABNORMAL) GLUCOSE - POINT OF CARE (11/04/2014 3:06 PM CDT) Glucose WB/POC 123(H) 70 - 106 mg/dL 11/04/2014 3:08 PM CDT [facility] Blood BLOOD SPECIMEN / Unknown 11/04/2014 3:06 PM CDT 11/04/2014 3:08 PM CDT Charlotte Chacon MD LAB - POINT OF CARE ORDERABLES [facility] [address] [place] [address] * (ABNORMAL) GLUCOSE - POINT OF CARE (11/04/2014 8:31 AM CDT) Glucose WB/POC 132(H) 70 - 106 mg/dL 11/04/2014 11:52 AM CDT [facility] Blood BLOOD SPECIMEN / Unknown 11/04/2014 8:31 AM CDT 11/04/2014 11:52 AM CDT Charlotte Chacon MD LAB - POINT OF CARE ORDERABLES Performing Organization Address City/State/[facility] Co de Phone Number [facility] [address] [place] [address] * PT-INR (11/04/2014 5:28 AM CDT) PT 11.5 9.5 - 11.6 sec 11/04/2014 5:58 AM CDT [facility] INR 1.1 0.9 - 1.1 11/04/2014 5:58 AM CDT [facility] Blood BLOOD SPECIMEN / Unknown Lab Venipuncture / Unknown 11/04/2014 5:28 AM CDT 11/04/2014 5:46 AM CDT Narrative [facility] - 11/04/2014 5:58 AM CDT Conventional Warfarin Anticoagulant Therapy: INR Reference Range: ??2.0-3.0 Intensive Warfarin Anticoagulant Therapy: INR Reference Range: ? 2.5-3.5 Becky Solorio PharmD LAB - COAGULATIO N ORDERABLES Performing Organization Address City/[facility]/ZIP Co de Phone Number [facility] [address] [place] [address] * HEMATOCRIT (11/04/2014 5:28 AM CDT) Hematocrit 37.4 35.9 - 45.5 % 11/04/2014 5:51 AM CDT [facility] Blood BLOOD SPECIMEN / Unknown Lab Venipuncture / Unknown 11/04/2014 5:28 AM CDT 11/04/2014 5:45 AM CDT Charlotte Chacon MD LAB - HEMATOLOGY OR DERABLES Performing Organization Address [facility] Co de Phone Number [facility] [address] [place] [address] * HEMOGLOBIN (11/04/2014 5:28 AM CDT) Hemoglobin 12.3 12.0 - 15.6 gm/dL 11/04/2014 5:51 AM CDT [facility] Blood BLOOD SPECIMEN / Unknown Lab Venipuncture / Unknown 11/04/2014 5:28 AM CDT 11/04/2014 5:45 AM CDT Charlotte Chacon MD LAB - HEMATOLOGY OR DERABLES Performing Organization Address City/[facility]/ZIP Co de Phone Number [facility] [address] [place] [address] * (ABNORMAL) GLUCOSE - POINT OF CARE (11/03/2014 9:27 PM CDT) Glucose WB/POC 133(H) 70 - 106 mg/dL 11/03/2014 9:31 PM CDT [facility] Blood BLOOD SPECIMEN / Unknown 11/03/2014 9:27 PM CDT 11/03/2014 9:31 PM CDT Narrative [facility] - 11/03/2014 9:31 PM CDT REPEAT TEST Charlotte Chacon MD LAB - POINT OF CARE ORDERABLES Performing Organization Address [facility]/ZIP Co de Phone Number [facility] [address] [place] [address] * CULTURE MSSA/MRSA (11/03/2014 4:03 PM CDT) Pathologist [facility] Culture Negative for MRSA/MSSA BIANKA 11/04/2014 8:24 PM CDT [facility] MICROBIOLOGY Microbiology SPECIMEN FROM NASAL FOSSAE / Unknown 11/03/2014 4:03 PM CDT 11/03/2014 4:16 PM CDT Charlotte Chacon MD LAB - MICROBIOLOGY ORDERABLES Performing Organization Address [facility] Co de Phone Number [facility] MICROBIOLOGY [address] [place] [id number] [place] [address] * PT-INR (11/03/2014 11:38 AM CDT) Pathologist [facility] PT 10.9 9.5 - 11.6 sec 11/03/2014 12:35 PM CDT [facility] INR 1.1 0.9 - 1.1 11/03/2014 12:35 PM CDT [facility] Blood BLOOD SPECIMEN / Unknown Lab Venipuncture / Unknown 11/03/2014 11:38 AM CDT 11/03/2014 12:18 PM CDT Narrative [facility] - 11/03/2014 12:35 PM CDT Conventional Warfarin Anticoagulant Therapy: INR Reference Range: ??2.0-3.0 Intensive Warfarin Anticoagulant Therapy: INR Reference Range: ? 2.5-3.5 Charlotte Chacon MD LAB - COAGULATION O RDERABLES Performing Organization Address [facility]/ZIP Co de Phone Number [facility] [address] [place] [address] * (ABNORMAL) GLUCOSE - POINT OF CARE (11/03/2014 11:06 AM CDT) Pathologist [facility] Glucose WB/POC 149(H) 70 - 106 mg/dL 11/03/2014 12:16 PM CDT [facility] Blood BLOOD SPECIMEN / Unknown 11/03/2014 11:06 AM CDT 11/03/2014 12:16 PM CDT Charlotte Chacon MD LAB - POINT OF CARE ORDERABLES Performing Organization Address [facility] Co de Phone Number [facility] [address] [place] [address] * (ABNORMAL) GLUCOSE - POINT OF CARE (11/03/2014 9:15 AM CDT) Glucose WB/POC 139(H) 70 - 106 mg/dL 11/03/2014 9:17 AM CDT [facility] Blood BLOOD SPECIMEN / Unknown 11/03/2014 9:15 AM CDT 11/03/2014 9:17 AM CDT Charlotte Chacon MD LAB - POINT OF CARE ORDERABLES Performing Organization Address [facility] Co de Phone Number [facility] [address] [place] [address] * GLUCOSE - POINT OF CARE (11/03/2014 5:46 AM CDT) Glucose WB/POC 91 70 - 106 mg/dL 11/03/2014 5:48 AM CDT [facility] Blood BLOOD SPECIMEN / Unknown 11/03/2014 5:46 AM CDT 11/03/2014 5:48 AM CDT Charlotte Chacon MD LAB - POINT OF CARE ORDERABLES Performing Organization Address [facility] de Phone Number [facility] [address] [place] [address] documented in this encounter Visit Diagnoses Diagnosis 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 Scheduled Medication Order 11/05/2014 11/06/2014 11/07/2014 calcium carbonate (TUMS) chew tablet 500 mg (CANCELED) 500 mg, Oral, 3 TIMES DAILY, First dose on Sat11/03/14 at 0900, Until Discontinued 1103 (Not Administered - Provider: Morris Christian [...] on Rhoda 11/04/14 at 0900, Until Discontinued 1103 ($ Given [...] Reason: Refused-Patient)2124 ($ Given - Provider: Rickey Mcgill RN) 0900 (Not Administered - Provider: Morris Christian RN - Reason: Refused-Patient)212 (Not Administered - Provider: Juanita Delgado RN [...] CONTINUOUS, Starting on Sat11/03/14 at 0915, Until 11/07/14 at 1547, Post-op 0655 (Stopped - Provider: Kendal Deelon, RN)0656 ($ New Bag/Syringe - Provider: Kendal Deleon, RN)1800 ($ New Bag/Syringe - Provider: Rickey [...] Rickey Mcgill RN)0946 ($ Given - Provider: Morris Christian RN)1532 ($ Given - Provider: Morris [...] Time MRSA 01/23/2008 01/23/2008 03/16/2021 8:30 AM BANK GUARD documented as of this encounter Care Teams Eligibility And Occupancy Interviewer Relationship Specialty Start Date End Date Summer Green, TESHA Glaze Grinder 11/03/14 documented as of this encounter
--- OUTSIDE RECORDS SUMMARY | 2024-05-11 12:07 | XMS_ITS | Encounter Summary ---
Author Organization [facility] Address [address] [place] [address] Care Team Providers Care Director Social Service Name Role Phone BurtonSummer dixon Marv RN Unavailable [phone] Jacki Cabrera MD Primary Care Provider Reason for Visit * Reason Comments Post-Op pos scs Encounter Details Date Type Department Care Team (Late st Contact Info) Description 04/03/2021 11:45 AM APPLIANCE SERVICE TECHNICIAN Office Visit [facility] Neurosurgery [address], [address] [place] [address] William Hammonds MD [facility] [place] [id number] S/P insertion of spinal cord stimulator (Primary Dx) Social History Tobacco Use Types [...] Comments Blood Pressure 151/91 04/03/2021 11:22 AM APPLIANCE SERVICE TECHNICIAN Pulse 116 04/03/2021 11:22 AM APPLIANCE SERVICE TECHNICIAN Temperature - - Respiratory Rate - - Oxygen Saturation 96% 04/03/2021 11:22 AM APPLIANCE SERVICE TECHNICIAN Inhaled Oxygen Concentration - - Weight 118.8 kg (262 lb) 04/03/2021 11:22 AM APPLIANCE SERVICE TECHNICIAN Height 172.7 cm (5' 8 ) 04/03/2021 11:22 AM APPLIANCE SERVICE TECHNICIAN Body Mass Index 39.84 04/03/2021 11:22 AM APPLIANCE SERVICE TECHNICIAN documented in this encounter Functional Status Functional [...] No 03/22/2021 documented as of this encounter Patient Instructions * Patient Instructions* Fanny Gross APRN-CNP - 04/03/2021 11:31 AM APPLIANCE SERVICE TECHNICIAN Keep incision clean and dry -do not submerge in water until completely healed Follow up with device representatives for programming needs Follow up with Dr. Hammonds 6 weeks for wound check For any questions call Sara at [phone] IANCE SERVICE TECHNICIAN documented in this encounter Progress Notes * Fanny Gross APRN-CNP - 04/03/2021 11:35 AM CST Neurosurgery Clinic Progress Note Chief Complaint (CC): Follow up spinal cord stimulator HISTORY OF PRESENT ILLNESS (HPI): Patient is a 66 year old female with a history of a previous laminectomy in the lower lumbar spine,with remaining chronic axial low back pain and right leg pain. Patient underwent a recent trial with a dorsal column stimulation system with an DSTLD device and presented with significant improvement of her pain. She was ultimately submitted to a spinal cord stimulator on 03/16/[address] Hammonds. Patient presented to [facility] ER on 03/18/21 with right leg pain and xrays showed stable appearance of spinal cord stimulator system with placement in appropriate location. She was treated with a medrol dose pack. Patient presents to clinic today for a 2 week follow up. The patient reports doing well today and denies any new concerns. She reports her incisional and post operative pain has resolved. She has had improvement in her low back and leg pain since surgery and is happy with her results. Patient denies any spasticity, weakness, numbness/tingling, or concerns with her incision. PMH: Past Medical History: Diagnosis Date ??? Constipation ??? Depression ??? Edema bilateral ankles ??? GERD (gastroesophageal reflux disease) ??? History of diabetes mellitus ??? Hypertension ??? MRSA (methicillin resistant Staphylococcus aureus) post right foot surgery ??? Overweight, obesity and other hyperalimentation ??? Psoriasis right leg, both elbows, scalp ??? Psoriatic arthritis ??? Sleep apnea uses cpap machine PSH: Past Surgical History: Procedure Laterality Date ??? ANKLE FRACTURE TX 1999 right ??? ANKLE FRACTURE TX 2000 hardware removed ??? Arthroplasty 2006 left ??? Arthroplasty 2008 right knee,2008 ??? Back Surgery 1995 [id number] ??? Breast Reduction 1993 bilat ??? Bunionectomy 2007 right ??? Bunionectomy 1993 left ??? Hysterectomy 1989 vaginal ??? KNEE ARTHROPLASTY, REVISION Right 11/03/2014 Right; ARTHROPLASTY TOTAL KNEE REVISION HINGED KNEE ??? Knee Arthroscopy 1995 left ??? Knee Arthroscopy 1996 right ??? Salpingo-oophorectomy 2004 bilat ??? Spine Procedure/Surgery 03/16/2021 INSERTION/REPLACEMENT SPINAL CORD STIMULATOR ??? Thoracic Spine Laminectomy 03/16/2021 THORACIC ELEVEN - THORACIC TWELVE LAMINECTOMY FOR PLACEMENT OF DORSAL COLUMN STIMULATION SYSTEM ANDPLACEMENT OF THE BATTERY IN THE RIGHT LOWER LUMBER REGION ??? TUBAL LIGATION, LAPAROSCOPIC 1976 Meds: Current Outpatient Medications Medication ??? acetaminophen (TYLENOL) 325 MG tablet ??? baclofen (LIORESAL) 10 MG tablet ??? busPIRone (BUSPAR) 5 MG tablet ??? calcitriol (ROCALTROL) 0.25 MCG capsule ??? clobetasol (TEMOVATE) 0.05 % gel ??? cyclobenzaprine (FLEXERIL) 10 MG tablet ??? DULoxetine (CYMBALTA) 60 MG capsule ??? Ergocalciferol (VITAMIN D2) 50 MCG (1999 UT) ??? escitalopram (LEXAPRO) 10 MG tablet ??? folic acid (FOLVITE) 1 MG tablet ??? gabapentin (NEURONTIN) 600 MG tablet ??? lisinopril-hydroCHLOROthiazide (PRINZIDE; ZESTORETIC) 20-25 MG tablet ??? lovastatin (MEVACOR) 20 MG tablet ??? methotrexate (RHEUMATREX) 2.5 MG tablet ??? multivitamin with iron (ONE A DAY WITH IRON) tablet ??? NARCAN 4 MG/0.1ML nasal spray ??? nicotine (NICODERM CQ) 14 MG/24HR patch ??? omeprazole (PRILOSEC) 20 MG capsule ??? oxyCODONE, immediate release, (ROXICODONE) 5 MG tablet ??? polyethylene glycol 3350 (MIRALAX) 17 g packet ??? prochlorperazine (COMPAZINE) 5 MG tablet ??? senna (SENOKOT) 8.6 MG tablet ??? simvastatin (ZOCOR) 10 MG tablet ??? sulfaSALAzine (AZULFIDINE) 500 MG tablet ??? TALTZ 80 MG/ML auto-injector pen ??? traZODone (DESYREL) 100 MG tablet ??? XTAMPZA ER 18 MG capsule No current facility-administered medications for this visit. Allergies Allergies Allergen Reactions ??? Penicillins Shortness of Breath, Rash and Unknown ??? Betadine [Povidone Iodine] Rash ??? Metformin Nausea and/or Vomiting Social: Social History Tobacco Use ??? Smoking status: Current Every Day Smoker Packs/day: 0.50 Years: 19.00 Pack years: 9.50 Types: Cigarettes Last attempt to quit: 02/17/2013 Years since quittin.1 ??? Smokeless tobacco: Never Used ??? Tobacco comment: a couple cigarettes a day Substance Use Topics ??? Alcohol use: No Comment: occasional Family: Family History Problem Relation Name Age of Onset ??? Heart Failure Mother ??? Diabetes Mother ??? Heart Failure Father ??? Arthritis - Rheumatoid Sister Inna ??? Other Sister Inna COPD, SLE REVIEW OF SYSTEMS Pertinent items are noted in HPI. PHYSICAL EXAM BP 151/91 Pulse 116 Ht 5' 8 (1.727 m) Wt 262 lb (118.8 kg) SpO2 96% BMI 39.84 kg/m2 General: No acute distress. HEENT: pupils equal and reactive to light, extra-occular muscles intact, face symmetric, tongue midline. Cardiovascular: warm, well profused Respiratory: non-labored breathing Integument: no lesions found. Midline thoracic and right lower lumbar incisions have prineo dressing in place. No erythema, edema, or drainage noted. Neuro: Mental status: Alert, attentive, and oriented x3 (name, place, date). Speech is clear and fluent. Motor: Muscle bulk and tone are normal. Deltoid Bicep Tricep Agricultural Education Instructor Wrist Ext Finger ext Hip Flexor Quad Hamstring Tib Ant Gastroc EHL Right 5 5 5 5 5 5 5 5 5 5 5 5 Left 5 5 5 5 5 5 5 5 5 5 5 5 Reflexes: No Clonus Patellar Achilles Right 2+ 2+ Left 2+ 2+ Sensory: Light touch intact in upper and lower extremities Coordination: No fasciculations Gait/Stance: Posture is normal. No obvious coronal or sagittal imbalance. Gait normal with cane RADIOLOGY: No new neuroradiological imaging for review. Assessment/Plan: Karolina Ramos is a 66 year old female with history of spinal cord stimulator insertion (DSTLD) on03/16/[address] Hammonds, who presents to clinic today for a 2 week follow up. Patient was evaluated in the ER on 03/18 after for RLE pain and treated with a medrol dose pack. Today, patient is doing well and denies any concerns. Low back pain has improved since surgery and her leg pain is now resolved. She only using pain medications as needed at this point. Incision is healing well, dressing removed today without evidence of infection. We will have the patient follow up in 6 weeks for a final wound check. SARBJIT Barrett 04/03/2021 11:35 AM IANCE SERVICE TECHNICIAN documented in this encounter Plan of Treatment Not on file documented as of this encounter Visit Diagnoses Diagnosis S/P insertion of spinal cord stimulator- Primary documented in this encounter Additional Health Concerns Infection Onset Date Last Indicated Resolved Time MRSA Hx 03/16/2021 03/16/2021 documented as of this encounter Care Teams Director Social Service Relationship Specialty Start Date End Date Jacki Cabrera MD PCP - General Internal Medicine 11/04/14 Summer Green, RN Spinner Hydraulic 11/03/14 documented as of this encounter
--- OUTSIDE RECORDS SUMMARY | 2024-05-11 12:07 | XMS_ITS | Encounter Summary ---
Author Organization [facility] Address [address] [place] [address] Care Team Providers Care Inverter And Clipper Name Role Phone Summer Green RN Unavailable [phone] Jacki Cabrera MD Primary Care Provider Reason for Visit * Auth/Cert Specialty Diagnoses / Procedures Referred By Calvin bentley Referred To Contact Diagnoses Diagnosis unknown Diagnosis unknown [R69] Procedures LAMINECTOMY THORACIC Referral ID Status Reason Start Date Expiration Date Visits Re quested Visits Authorized [id number] 1 1 Encounter Details Date Type Department Care Team (Late st Contact Info) Description 03/16/2021 10:12 AM CIVIL DRAFTSMAN - 03/16/2021 12:39 PM [facility] Surgery [facility] [address] [place] [address] William Hammonds MD [address] [place] [address] [place] [address] THORACIC ELEVEN - THORACIC TWELVE LAMINECTOMY FOR PLACEMENT OF DORSAL COLUMN STIMULATION SYSTEM AND PLACEMENT OF THE BATTERY IN THE RIGHT LOWER LUMBER REGION Surgery Details Date/Time Status Location OR Service Patient Class Case Class Case Type Trauma Case? 03/16/2021 10:12 AM Posted [facility] MAIN OR OR 07 Neurosurgery Surgery Day Care Elective > 5 days Panel 1 Procedure LRB Anes Op Region Wound Class Comments THORACIC ELEVEN - THORACIC T WELVE LAMINECTOMY FOR PLACEMENT OF DORSAL COLUMN STIMULATION SYSTEM AND PLACEMENT OF THE BATTERY IN THE RIGHT LOWER LUMBER REGION General Clean INSERTION/REPLACEMENT SPINAL CORD STIMULATOR General Spine Thoracic Clean Surgeon Surgeon Role Service Panel Cassius, William Alecio, MD Primary Neurosurgery 1 Special Needs #### 004 #### NEEDS C-ARM, NEUR[employer] MONITORING COMPANY NOTIFIED PER OFFICE([place]) WITH CONFIRMATION # [id number] / EAST REP (DRE [phone]) NOTIFIED PER OFFICE([place]) 03/06 TM / SURGEON WANTS PATIENT IN PRONE POSITION FOR PROCEDURE Case confirm ed with Julia 03-14-2021-MAB documented in this encounter Social History Tobacco [...] Sign Reading Time Taken Comments Blood Pressure 130/81 03/16/2021 8:50 AM CIVIL DRAFTSMAN Pulse 69 03/16/2021 8:50 AM CIVIL DRAFTSMAN Temperature 37.1 ??C (98.7 ??F) 03/16/2021 8:50 AM CS T Respiratory Rate 18 03/16/2021 8:50 AM CIVIL DRAFTSMAN Oxygen Saturation 94% 03/16/2021 8:50 AM CIVIL DRAFTSMAN Inhaled Oxygen Concentration - - Weight 118.8 kg (262 lb) 03/16/2021 8:36 AM CIVIL DRAFTSMAN Height 172.7 cm (5' 8 ) 03/16/2021 8:36 AM CIVIL DRAFTSMAN Body Mass Index 39.84 03/16/2021 8:36 AM CIVIL DRAFTSMAN documented in this encounter Functional Status Functional [...] auto-injector pen 1 Dose 12/09/2018 albuterol HFA (PROVENTIL;VENTOLIN;SC OAIR) 108 (90 Base) MCG/ACT inhaler 07/23/2019 [...] tablet 500 mg 2 times daily 01/31/2021 traZODone (DESYREL) 100 MG tablet 200 mg [...] a dorsal column stimulation system with an East device and presented with significant improvement of [...] Not on file Occupational History ??? 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 Smoking status: Current Every [...] Laterality Date ??? ANKLE FRACTURE TX ?? 1998 ?? right ??? ANKLE FRACTURE TX ?? 1999 ?? hardware removed ??? Arthroplasty ?? 2006 ?? left ??? Arthroplasty ?? 2008 ?? right knee,2008 ??? Back Surgery ?? 1996 ?? L4L5 ??? Breast Reduction ?? 1994 ?? bilat ??? Bunionectomy ?? 2007 ?? right ??? Bunionectomy ?? 1993 ?? left ??? Hysterectomy ?? 1989 ?? vaginal ??? KNEE ARTHROPLASTY, REVISION Right 11/03/2014 ?? Right; ARTHROPLASTY TOTAL KNEE REVISION HINGED KNEE ??? Knee Arthroscopy ?? 1995 ?? left ??? Knee Arthroscopy ?? 1996 [...] battery in the right lower lumbar region L DRAFTSMAN documented in this encounter OR Notes * [...] Role: * William Hammonds MD - Primary Riding Teacher(s): Michelle Ugarte MD Anesthesia Type: general ETT Complications: none Findings: East spinal cord stimulator placed and connected to right lower lumbar region battery with good impedances EBL: 20 mL Urine Output : n/a IV Fluid Intake: per anesthesia Drains: * No LDAs found * Specimen(s): * No specimens in log * Implant(s): Implant Name Type Inv. Item Serial No. Blindstitch Hemmer Lot No. LRB No. Used Action LEAD NRSTM 60CM PENTA 3MM PDL 16 CHNL - [id number] Lead Nrstm 60Cm Penta 3Mm Pdl 16 Chnl [id number] Advanced Neuromodulation Systems 1 Implanted Slnt Dura Duraseal Pg Trilysine Amine 5 Slnt Dura Duraseal Pg Trilysine Amine 5 [employer] [id number] 1 Implanted CABLE NRSTM MULTILEAD TRL - [id number] Cable Nrstm Multilead Trl [id number] East Spine 1 Implanted GNTR NRSTM 1.95INX2.19IN PROCLAIM ELT - [id number] Gntr Nrstm 1.95Inx2.19In Proclaim Elt [id number] [employer] 1 Implanted Michelle Ugarte MD L DRAFTSMAN * Operative - William Hammonds MD - 03/16/2021 11:20 AM CST [facility] ?Operative Report ?? PATIENT NAME:??KAROLINA RAMOS ?MR#:?[id number] DATE OF :?1955?CSN:?[id number] ?? DATE OF ADMISSION: ??03/16/2021?ROOM#: ??[facility] ?INTRAOP DATE OF OPERATION: ??03/16/2021? PREOPERATIVE DIAGNOSIS: Refractory chronic axial low back pain??and right??leg pain ?? POSTOPERATIVE DIAGNOSIS: Refractory chronic axial low back pain??and right??leg pain ?? PROCEDURE PERFORMED: T10-T11 and T11-T12??laminectomy for placement of dorsal column stimulation system and placement ofthe battery in the??right lower lumbar region. ?? SURGEON: William Hammonds M.D. ?? PROJECT MANAGER FINANCE: Michelle Ugarte MD ?? ANESTHESIA: General anesthesia. [...] ??Then, the??spinous processes of T11 was??removed with??a??Sukh dudley.?Then, the bilateral laminae??were drilled. ??Ligamentum flavum was [...] skin. ??The skin was dressedwith an Exophyn??dressing. L DRAFTSMAN documented in this encounter Plan of Treatment Not on file documented as of this encounter Procedures Procedure Name Priority Date/Time Associated Diagnosis Comments CARDIAC RHYTHM STRIP ORDER 03/20/2021 5:52 PM CIVIL DRAFTSMAN GLUCOSE - POINT OF CARE Routine 03/16/2021 1:59 PM CIVIL DRAFTSMAN FL LUPILLO SURGERY Routine 03/16/2021 1:00 PM CIVIL DRAFTSMAN Pain XR CHEST 1VW PORTABLE STAT 03/16/2021 10:15 AM CIVIL DRAFTSMAN Preop examination INSERTION/REPLACEM ENT SPINAL CORD STIMULATOR 03/16/2021 10:11 AM CIVIL DRAFTSMAN Diagnosis unknown Special Needs #### 004 #### NEEDS C-ARM, NEURO MONITORING COMPANY NOTIFIED PER OFFICE([place]) WITH CONFIRMATION # [id number] / Safety Hound REP (DRE [phone]) NOTIFIED PER OFFICE([place]) 03/06 TM / SURGEON WANTS PATIENT IN PRONE POSITION FOR PROCEDURE Case confirm ed with Kr248 [employer] 03-14-2021-MAB LAMINECTOMY THORACIC 03/16/2021 10:11 AM CIVIL DRAFTSMAN Diagnosis unknown Special Needs #### 004 #### NEEDS C-ARM, NEUR[employer] MONITORING COMPANY NOTIFIED PER OFFICE([place]) WITH CONFIRMATION # [id number] / [employer] REP (DRE [phone]) NOTIFIED PER OFFICE([place]) 03/06 TM / SURGEON WANTS PATIENT IN PRONE POSITION FOR PROCEDURE Case confirm ed with Kr248 [employer] 03-14-2021-MAB GLUCOSE - POINT OF CARE Routine 03/16/2021 8:47 AM CIVIL DRAFTSMAN documented in this encounter Results * CARDIAC RHYTHM STRIP ORDER (03/20/2021 5:52 PM CIVIL DRAFTSMAN) Narrative 03/20/2021 5:52 PM CIVIL DRAFTSMAN Ordered by an unspecified provider. Scanned Document CARDIAC SERVICES ORD ERABLES * (ABNORMAL) GLUCOSE - POINT OF CARE (03/16/2021 1:59 PM CIVIL DRAFTSMAN) Glucose WB/POC 179(H) 70 - 106 mg/dL 03/16/2021 2:05 PM CIVIL DRAFTSMAN [facility] Specimen Type Cap Fingerstick 2020 2:05 PM CIVIL DRAFTSMAN [facility] Blood BLOOD SPECIMEN / Unknown 03/16/2021 1:59 PM CIVIL DRAFTSMAN 03/16/2021 2:05 PM CIVIL DRAFTSMAN William Hammonds MD LAB - POINT OF C ARE ORDERABLES Performing Organization Address [facility]/ZIP Co de Phone Number [facility] [address] [place] [phone] * FL LUPILLO SURGERY (03/16/2021 1:00 PM CIVIL DRAFTSMAN) Narrative [facility] - 03/16/2021 2:00 PM CIVIL DRAFTSMAN For details of this study, please see the providers note. William Hammonds MD FLUOROSCOPY ORDE RABLES Performing Organization Address [facility] Co de Phone Number [facility] [address] [place] [phone] * XR CHEST 1VW PORTABLE (03/16/2021 10:15 AM CIVIL DRAFTSMAN) Anatomical Region Laterality Modality Chest Radiographic Rivka ging 03/16/2021 10:0 3 AM CIVIL DRAFTSMAN Narrative 03/16/2021 10:03 AM CIVIL DRAFTSMAN Exam: AP radiograph of the chest. History: [...] - POINT OF CARE (03/16/2021 8:47 AM CIVIL DRAFTSMAN) Glucose WB/POC 155(H) 70 - 106 mg/dL 03/16/2021 8:56 AM CIVIL DRAFTSMAN [facility] Specimen Type Venous 03/16/2021 8:56 AM CIVIL DRAFTSMAN [facility] Blood BLOOD SPECIMEN / Unknown 03/16/2021 8:47 AM CIVIL DRAFTSMAN 03/16/2021 8:56 AM CIVIL DRAFTSMAN Willima Hammonds MD LAB - POINT OF C ARE ORDERABLES [facility] [address] [place] [address] documented in this encounter Visit Diagnoses Diagnosis Preop examination- Primary Preoperative examination, unspecified Pain Generalized pain Diagnosis unknown Other unknown and unspecified cause of morbidity or mortality documented in this encounter Administered Medications Inactive Administered Medications - up to 3 most recent administrations Medication Order MAR Action Action Date Dose Rate Site 0.9% NaCl irrigation (SO) solution PRN, Starting on Rhoda 03/16/21 at 1321, Until Rhoda 03/16/21 at 1351, Intra-op $ Given 03/16/2021 1:21 PM CIVIL DRAFTSMAN 750 mL Operative Site acetaminophen (Tylenol) tablet 1,000 mg 1,000 mg, Oral, ONCE, 1 dose, On Rhoda 03/16/21 at 0900, Pre-op $ Given 03/16/2021 8:57 AM CIVIL DRAFTSMAN 1,000 mg bupivacaine liposome (Exparel) 1.3 % injection PRN, Starting on Rhoda 03/16/21 at 1207, Until Rhoda 03/16/21 at 1351, Intra-op $ Given 03/16/2021 12:07 PM CIVIL DRAFTSMAN 20 mL Operative Site fentaNYL (PF) (Sublimaze) injection 50 mcg 50 [...] hypoventilation., PACU $ Given 03/16/2021 2:16 PM CIVIL DRAFTSMAN 50 mcg $ Given 03/16/2021 2:09 PM CIVIL DRAFTSMAN 50 mcg HYDROcodone-acetaminop hen 7.5-325 MG/15ML solution 15 mL 15 mL, Oral, POST-OP ONCE, 1 dose, On Rhoda 03/16/21 at 1530 $ Given 03/16/2021 3:53 PM CIVIL DRAFTSMAN 15 mL lactated ringers infusion at 20 mL/hr, Intravenous, PRE-OP CONTINUOUS, Starting on Rhoda 03/16/21 at 0900, Until Rhoda 03/16/21 at 1802, Pre-op $ New Bag/Syringe 03/16/2021 8:57 AM CIVIL DRAFTSMAN 20 mL/hr lidocaine 1% (Xylocaine-MPF) - EPINEPHrine 1:100,000 injection PRN, Starting on Rhoda 03/16/21 at 1321, Until Rhoda 03/16/21 at 1351, Intra-op $ Given 03/16/2021 1:21 PM CIVIL DRAFTSMAN 9 mL Operative Site lidocaine PF (Xylocaine MPF) 1 % injection 0.2 mL 0.2 mL, Infiltration, PRE-OP MULTIPLE, 3 doses, Starting on Rhoda 03/16/21 at 0829, Until Rhoda 03/16/21 at 1802, May be used (0.2 ml locally to anesthetize prior to insertion)., Pre-op $ Given 03/16/2021 8:57 AM CIVIL DRAFTSMAN 0.2 mL vancomycin (Vancocin) injection PRN, Starting on Rhoda 03/16/21 at 1207, Until Rhoda 03/16/21 at 1351, Intra-op $ Given 03/16/2021 12:07 PM CIVIL DRAFTSMAN 1,000 mg Operative Site documented in this encounter Active and Recently Administered Medications Times are shown in CIVIL DRAFTSMAN. Scheduled Medication Order 03/14/2021 03/15/2021 03/16/2021 acetaminophen [...] 1104 ($ Given - Prov ider: Ian J Fahad, DRYING ROOM SUPERVISOR-LOG PREPARER - Comment: neg test dose) HYDROcodone-acetaminophen 7.5-325 [...] Time MRSA 01/23/2008 01/23/2008 03/16/2021 8:30 AM CIVIL DRAFTSMAN MRSA Hx 03/16/2021 03/16/2021 documented as of this encounter Care Teams Inverter And Clipper Relationship Specialty Start Date End Date Jacki Cabrera MD PCP - General Internal Medicine 11/04/14 Summer Green, RN Meteorological Technician 11/03/14 documented as of this encounter
--- OUTSIDE RECORDS SUMMARY | 2024-05-11 12:08 | XMS_ITS | Encounter Summary ---
Author Organization [facility] Address [address] [place] [address] Care Team Providers Care Burial Vault Setter Name Role Phone Carlos Dougherty MD Primary Care Provider [phone] Reason for Visit * Reason Onset Date Comments Sleep Problem 01/15/2008 Encounter Details Date Type Department Care Team (Late st Contact Info) Description 01/15/2008 Telephone [facility] - Internal Medicine [address] [place] [address] Carlos Dougherty MD [address] [place] [address] Sleep Problem Social History Tobacco Use Types Packs/Day Years Used Date Smoking Tobacco: Every Day Comments:3 cig/day Alcohol Use Standard Drinks/Week Comments No 0 (1 standard drink = 0.6 oz pur e alcohol) Sex and Gender Information Value Date Recorded Sex Assigned at Not on file Gender Identity Not on file Sexual Orientation Not on file documented as of this encounter Miscellaneous Notes * Telephone Encounter - Carlos Dougherty MD - 01/15/2008 5:36 PM CDT OK Ambien CR 6.25 mg hs prn #15 * Telephone Encounter - Jaky Carroll - 01/15/2008 3:26 PM CDT Has not slept for past 2 nights. Would like some ambien CRYulissa documented in this encounter Plan of Treatment Not on file documented as of this encounter Visit Diagnoses Not on filedocumented in this encounter Care Teams Burial Vault Setter Relationship Specialty Start Date End Date Carlos Dougherty MD [address] [place] [address] PCP - General 10/10/07 10/14/12 documented as of this encounter
--- OUTSIDE RECORDS SUMMARY | 2024-05-11 12:08 | XMS_ITS | Encounter Summary ---
Author Organization [facility] Address [address] [facility] [place] [address] Care Team Providers Care Pocket Assembler Name Role Phone Carlos Dougherty MD Primary Care Provider [phone] Encounter Details Date Type Department Care Team (Latest Contact Info) Description 12/22/2007 8:27 AM CDT - 12/22/2007 11:59 PM CDT Hospital Encounter [facility] [address] [id number] Carlos Dougherty MD [facility] [address] [place] [address] Radiology Diagnostic Discharge Disposition: Home or Self Care Social [...] Sig Dispensed Refills Start Date End Date CRISTIAN-D 12 HOUR PO Take by mouth 2 times daily. 02/10/2008 clobetasol (TEMOVATE) 0.05 % ointment Apply to affected area as needed 04/12/2008 CLOBETASOL PROPIONATE (CLOBEX SPRAY) 0.05 % LIQD 1 Squirt by Apply externally route daily. 4 oz 5 12/15/2007 10/18/2014 CLOBETASOL PROPIONATE (CLOBEX) 0.05 % LOTN 1 Applicatorful by Apply externally route daily. 4 oz 3 12/15/2007 10/18/2014 felodipine CR 24hr (PLENDIL) 5 MG tablet Take 5 mg by mouth daily. 04/19/2008 K + 10 PO Take by mouth daily. 009 LASIX PO Take 20 mg by mouth daily. 05/27/2008 lisinopril (PRINIVIL; ZESTRIL) 40 MG tablet Take 10 mg by mouth daily. 04/19/2008 metoprolol succinate XL 24hr (TOPROL XL) 100 MG tablet Take 100 mg by mouth 2 times daily. 04/19/2008 propoxyphene napsylate-acetaminoph en (DARVOCET) 100-500 MG tablet Take 1 Tab by mouth every 6 hours as needed for Pain. 30 0 12/15/2007 05/31/2008 venlafaxine XR 24hr (EFFEXOR XR) 150 MG capsule Take 1 Cap by mouth daily with breakfast. 90 3 12/15/2007 05/27/2008 documented as of this encounter Plan of Treatment Scheduled Orders Name Type Priority Associated Diagnoses Orde r Schedule CT ABDOMEN AND PELVIS WITH IV CONTRAST Imaging Routine ONCE for 1 Occu rrences starting 12/22/2007 until 12/22/2007, 1 completed documented as of this encounter Procedures Procedure Name Priority Date/Time Associated Diagnosis Comments CT ABDOMEN PELVIS W CONTRAST Routine 12/22/2007 9:00 AM CDT Nausea Alone documented in this encounter Results * CT ABDOMEN AND PELVIS WITH IV [...] No evidence for active diverticulitis. ? Reading RadiologistSulma ROA MD ? Releasing RadiologistSulma ROA MD ? Released Date Time- 12/22/07928 ? Cloth Cutting Machine Operator- KGM ? ADM- CARLOS DOUGHERTY ? ATT- CARLOS DOUGHERTY REF- CAROLS DOUGHERTY ? CON- PCP- CARLOS DOUGHERTY ? SCP- Procedure Note Harika Roa MD - 12/22/2007 CT abdomen and pelvis [...] No evidence for active diverticulitis. Reading Radiologist- HARIKA ROA MD Releasing Radiologist- HARIKA ROA MD Released Date Time- 12/22/0729 Cloth Cutting Machine Operator- KGM ADM- CARLOS DOUGHERTY ATT- CARLOS DOUGHERTY REF- CARLOS DOUGHERTY CON- PCP- CARLOS DOUGHERTY SCP- Carlos Dougherty MD CT ORDERABLES documented in this encounter Visit Diagnoses Diagnosis Nausea alone documented in this encounter Care Teams Pocket Assembler Relationship Specialty [place] [address] [place] [address] PCP - General 10/10/07 10/14/12 documented as of this encounter
--- OUTSIDE RECORDS SUMMARY | 2024-05-11 12:08 | XMS_ITS | Encounter Summary ---
Author Organization [facility] Address [address] [place] [address] Care Team Providers Care Early Childhood Services Coordinator Name Role Phone Carlos Dougherty MD Primary Care Provider [phone] Encounter Details Date Type Department Care Team (Late st Contact Info) Description 04/16/2008 Orders Only [facility] Medical [facility] - Internal Medicine [address] [place] [address] Carlos Dougherty MD [address] [place] [address] Preoperative Examination Social History Tobacco Use Types Packs/Day Years Used Date Smoking Tobacco: Every Day Cigarettes Comments:5 cigarettes per da y Alcohol Use Standard Drinks/Week Comments Not Asked 0 (1 standard drink = 0.6 oz pur e alcohol) occasional Sex and Gender Information Value Date Recorded Sex Assigned at Not on file Gender Identity Not on file Sexual Orientation Not on file documented as of this encounter Plan of Treatment Not on file documented as of this encounter Procedures Procedure Name Priority Date/Time Associated Diagnosis Comments EKG 12-LEAD Routine 04/12/2008 Preoperative Examination documented in this encounter Results * EKG 12-LEAD (04/12/2008) Carlos Dougherty MD ECG ORDERABLES documented in this encounter Visit Diagnoses Diagnosis Preoperative examination Preoperative examination, unspecified documented in this encounter Additional Health Concerns Infection Onset Date Last Indicated Resolved Time MRSA 01/23/2008 01/23/2008 03/16/2021 8:30 AM CHIEF RECORDIST documented as of this encounter Care Teams Early Childhood Services Coordinator Relationship Specialty Start Date End Date Carlos Dougherty MD [address] [place] [address] PCP - General 10/10/07 10/14/12 documented as of this encounter
--- OUTSIDE RECORDS SUMMARY | 2024-05-11 12:08 | XMS_ITS | Encounter Summary ---
Author Organization [facility] Address [address] [place] [address] Care Team Providers Care Florist Name Role Phone Carlos Dougherty MD Primary Care Provider [phone] Reason for Visit * Reason Onset Date Comments Results 12/24/2007 Encounter Details Date Type Department Care Team (Late st Contact Info) Description 12/24/2007 Telephone [facility] - Internal Medicine [address] [place] [address] Carlos Dougherty MD [address] [place] [address] Results Social History Tobacco Use Types Packs/Day Years [...] encounter Miscellaneous Notes * Telephone Encounter - Jaky Carroll - 12/24/2007 4:49 PM CDT LMR cell phone to call to schedule or go to er. * Telephone Encounter - Carlos Dougherty MD - 12/24/2007 2:50 PM CDT No significant abnormalities but if still having sx, should see MCM or go to ER. * Telephone Encounter - EleazarmarioInderjiton - 12/24/2007 1:51 PM CDT Testing done here mon. Results? Still with terrible nausea. documented in this encounter Plan of Treatment Not on file documented as of this encounter Visit Diagnoses Not on filedocumented in this encounter Care Teams Florist Relationship Specialty Start Date End Date Carlos Dougherty MD [address] [place] [address] PCP - General 10/10/07 10/14/12 documented as of this encounter
--- OUTSIDE RECORDS SUMMARY | 2024-05-11 12:08 | XMS_ITS | Encounter Summary ---
Author Organization [facility] Address [address] [place] [address] Care Team Providers Care Ground Water Technician Name Role Phone Unavailable Primary Care Provider Unavailabl e Encounter Details Date Type Department Care Team (Late st Contact Info) Description 01/17/2007 Orders Only [facility] - Internal Medicine [address] [place] [address] Timothy Zavala MD [address] [place] [address] Social History Tobacco Use Types Packs/Day Years Used Date Smoking Tobacco: Never Assessed Sex and Gender Information Value Date Recorded Sex Assigned at Not on file Gender Identity Not on file Sexual Orientation Not on file documented as of this encounter Plan of Treatment Not on file documented as of this encounter Procedures Procedure Name Priority Date/Time Associated Diagnosis Comments HEMOGLOBIN A1C 01/17/2007 8:47 AM CDT COMPREHENSIVE METABOLIC PANEL 01/17/2007 8:47 AM CDT documented in this encounter Results * (ABNORMAL) HEMOGLOBIN A1C (01/17/2007 8:47 AM CDT) Hemoglobin A1c 6.3(H) 4.8 - 5.9 % [facility] INSURANCE BILL Comment: Current guidelines recommend a treatment goal of <7% for diabetic patients. 01/17/2007 8:47 AM CDT 01/17/2007 Narrative Resulting Agency Comment [facility] [place] [address] [facility] [employer] ??[facility] [phone] Timothy Zavala MD LAB - CHEMISTRY MIMI LOTT [facility] INSURANCE BILL * (ABNORMAL) COMPREHENSIVE METABOLIC PANEL (01/17/2007 8:47 AM CDT) Glucose 126(H) 65 - 99 mg/dL [facility] INSURANCE BILL BUN 13 5 - 26 mg/dL [facility] INSURANCE BILL Creatinine 0.8 0.5 - 1.5 mg/dL [facility] INSURANCE BILL BUN/Creatinine Ratio 16 8 - 27 [facility] INSURANCE BILL Sodium 141 135 - 148 mmol/L [facility] INSURANCE BILL Potassium 4.6 3.5 - 5.5 mmol/L [facility] INSURANCE BILL Chloride 102 96 - 109 mmol/L [facility] INSURANCE BILL CO2 25 20 - 32 mmol/L [facility] INSURANCE BILL Calcium 9.5 8.5 - 10.6 mg/dL [facility] INSURANCE BILL Protein Total 7.5 6.0 - 8.5 g/dL [facility] INSURANCE BILL Albumin 4.0 3.5 - 5.5 g/dL [facility] INSURANCE BILL Globulin Total 3.5 1.5 - 4.5 g/dL [facility] INSURANCE BILL Albumin/Globulin Ratio 1.1 1.1 - 2.5 [facility] INSURANCE BILL Bilirubin Total 0.5 0.1 - 1.2 mg/dL [facility] INSURANCE BILL Alkaline Phosphatase 103 25 - 150 IU/L [facility] INSURANCE BILL AST 25 0 - 40 IU/L [facility] INSURANCE BILL ALT 22 0 - 40 IU/L [facility] INSURANCE BILL 01/17/2007 8:47 AM CDT 01/17/2007 Narrative Resulting Agency Comment [facility] [place] [address] [facility] [employer] ??[facility] [phone] Timothy Zavala MD LAB - CHEMISTRY MIMI LOTT [facility] INSURANCE BILL documented in this encounter Visit Diagnoses Not on filedocumented in this encounter
--- OUTSIDE RECORDS SUMMARY | 2024-05-11 12:08 | XMS_ITS | Encounter Summary ---
Author Organization [facility] Address [address] [place] [address] Care Team Providers Care Marine Electrician Name Role Phone Carlos Dougherty MD Primary Care Provider [phone] Reason for Visit * Reason Comments Pre-op Physical Encounter Details Date Type Department Care Team (Late st Contact Info) Description 04/12/2008 11:00 AM MEDICARE INTERVIEWER Office Visit [facility] Medical [facility] - Internal Medicine [address] [place] [id number] Carlos Dougherty MD [address] [place] [id number] Preoperative Examination (Primary Dx); HTN; GERD (Gastroesophageal Reflux Disease); Depression; Psoriasis; Rheumatoid Arthritis (HCC) Social History Tobacco Use Types Packs/Day Years [...] Sign Reading Time Taken Comments Blood Pressure 170/112 04/12/2008 11:15 AM MEDICARE INTERVIEWER Pulse 76 04/12/2008 11:15 AM MEDICARE INTERVIEWER Temperature - - Respiratory Rate - - Oxygen Saturation - - Inhaled Oxygen Concentration - - Weight - - Height 172.7 cm (5' 8 ) 04/12/2008 11:15 AM MEDICARE INTERVIEWER Body Mass Index - - documented in this encounter Progress Notes * Willow Molina - 04/13/2008 4:46 PM CSTQuick Note: Mehdi Starkey, pre-op already has these results. CARE INTERVIEWER * Carlos Dougherty MD - 04/13/2008 10:02 AM CSTQuick Note: Labs OK. Forward to [facility] as scheduled for Knee Surgery tomorrow. CARE INTERVIEWER * Carlos Dougherty MD - 04/12/2008 11:38 AM CST Karolina Ramos is a 53 y.o. female here for preoperative examination. Total Knee replacement of the right knee scheduled for 04/14/2008 ROS: No TIA's or unusual headaches, no dysphagia. No prolonged cough. No dyspnea or chest pain on exertion. No abdominal pain, change in bowel habits, black or bloody stools. No urinary tract symptoms. No new or unusual musculoskeletal symptoms. Status post hysterectomy, no abnormal vaginal bleeding, discharge or unexpected pelvic pain. No new breast lumps, breast pain or nipple discharge. Ear exam - both sides normal, TM intact without perforation or effusion, external canal normal. No significant ceruminosis noted. Throat exam normal. Oral cavity, tongue, pharynx and palate have no inflammation or suspicious lesions. Tonsils - tonsils are present and normal. Teeth normal without tenderness. S1 and S2 normal, no murmurs, clicks, gallops or rubs. Regular rate and rhythm. Chest is clear; no wheezes or rales. No edema or JVD. Severe DJD. Neuro: Cranial nerves and fundi are normal. JOSE. EOM's intact. No papilledema. Neck supple. No bruits. Normal deep tendon reflexes. Encounter Diagnoses Code Name Primary? Qualifier ??? V72.84F Preoperative Examination Yes Plan: CBC W AUTO DIFFERENTIAL, COMPREHENSIVE METABOLIC PANEL, PT-INR, PTT, EKG 12-LEAD, URINALYSIS DIPSTICK AUTO, XR CHEST PA AND LATERAL, PCHG ELECTROCARDIOGRAM, COMPLETE ??? 401.9BX HTN ??? 530.81S GERD (Gastroesophageal Reflux Disease) ??? 311L Depression ??? 696.1U Psoriasis ??? 714.0 Rheumatoid Arthritis Medically cleared. CARE INTERVIEWER documented in this encounter Plan of Treatment Not on file documented as of this encounter Procedures Procedure Name Priority Date/Time Associated Diagnosis Comments PTT Routine 04/12/2008 12:15 PM MEDICARE INTERVIEWER Preoperative Examination PT-INR Routine 04/12/2008 12:15 PM MEDICARE INTERVIEWER Preoperative Examination CBC W AUTO DIFFERENTIAL Routine 04/12/2008 12:15 PM MEDICARE INTERVIEWER Preoperative Examination COMPREHENSIVE METABOLIC PANEL Routine 04/12/2008 12:15 PM MEDICARE INTERVIEWER Preoperative Examination URINALYSIS NO MICROSCOPIC NO CULTURE Routine 04/12/2008 12:13 PM MEDICARE INTERVIEWER Preoperative Examination URINE MICROSCOPIC ONLY Routine 8 12:13 PM MEDICARE INTERVIEWER Preoperative Examination documented in this encounter Results * XR CHEST PA AND LATERAL (CXR) (04/12/2008 12:54 PM MEDICARE INTERVIEWER) Anatomical Region Laterality Modality Chest Radiographic Rivka ging 04/12/2008 1:30 PM MEDICARE INTERVIEWER Impressions 04/12/2008 1:31 PM MEDICARE INTERVIEWER NO ACTIVE DISEASE. Narrative 04/12/2008 1:31 PM MEDICARE INTERVIEWER PA AND LATERAL CHEST: HISTORY: Preop. Preanesthesia evaluation. PA and lateral chest dated April 12, 2008 is compared with October 10, 2007. The cardiomediastinal silhouette is normal. Pulmonary vascularity is normal and the lungs are clear. Procedure Note Carla Roa MD - 04/12/2008 PA AND LATERAL CHEST: HISTORY: Preop. Preanesthesia evaluation. PA and lateral chest dated April 12, 2008 is compared with October 10, 2007. The cardiomediastinal silhouette is normal. Pulmonary vascularity is normal and the lungs are clear. IMPRESSION NO ACTIVE DISEASE. Carlos Dougherty MD DIAGNOSTIC IMAGING O RDERABLES * PTT (04/12/2008 12:15 PM MEDICARE INTERVIEWER) PTT 31 24 - 33 sec [facility] ACCOUNT BILL Comment: This test has not been validated for monitoring unfractionated heparin therapy. aPTT-based therapeutic ranges for unfractionated heparin therapy have not been established. For general guidelines on Heparin monitoring, refer to the [facility] Directory of Services. BLOOD SPECIMEN / Unknown 04/12/2008 12:15 PM MEDICARE INTERVIEWER 04/12/2008 5:11 PM MEDICARE INTERVIEWER Narrative Resulting Agency Comment [facility] [place] [address] [facility] ??[place] [phone] Carlos Dougherty MD LAB - COAGULATION OR DERABLES [facility] ACCOUNT BILL * PT-INR (04/12/2008 12:15 PM MEDICARE INTERVIEWER) Pathologist [facility] INR 1.0 0.8 - 1.2 [facility] ACCOUNT BILL Comment: ? Reference interval is for non-anticoagulated patients. ?. ? Suggested INR therapeutic range for Vitamin K ? antagonist therapy: ?Standard Dose (moderate intensity ? therapeutic range): ? 2.0 - 3.0 ?Higher intensity therapeutic range ? 2.5 - 3.5 PT 10.2 8.7 - 11.5 sec [facility] ACCOUNT BILL BLOOD SPECIMEN / Unknown 04/12/2008 12:15 PM MEDICARE INTERVIEWER 04/12/2008 5:11 PM MEDICARE INTERVIEWER Narrative Resulting Agency Comment [facility] [address] ??[facility] [phone] Carlos Dougherty MD LAB - COAGULATION OR DERABLES [facility] ACCOUNT BILL * (ABNORMAL) COMPREHENSIVE METABOLIC PANEL (04/12/2008 12:15 PM MEDICARE INTERVIEWER) Glucose 167(H) 65 - 99 mg/dL [facility] ACCOUNT BILL BUN 13 5 - 26 mg/dL [facility] ACCOUNT BILL Creatinine 0.60 0.57 - 1.00 mg/dL [facility] ACCOUNT BILL eGFR by MDRD >59 >59 mL/min/1.7 3 [facility] ACCOUNT BILL eGFR by MDRD >59 >59 mL/min/1.7 3 [facility] ACCOUNT BILL Comment: Note: ??Persistent reduction for 3 months or more in an eGFR <60 mL/min/1.73 m2 defines CKD. ??Patients with eGFR values >/=60 mL/min/1.73 m2 may also have CKD if evidence of persistent proteinuria is present. Additional information may be found at www.[email or web address]. BUN/Creatinine Ratio 22 8 - 27 [facility] ACCOUNT BILL Sodium 138 135 - 145 mmol/L [facility] ACCOUNT BILL Potassium 4.1 3.5 - 5.2 mmol/L [facility] ACCOUNT BILL Chloride 100 97 - 108 mmol/L [facility] ACCOUNT BILL CO2 26 20 - 32 mmol/L [facility] ACCOUNT BILL Calcium 9.5 8.5 - 10.6 mg/dL [facility] ACCOUNT BILL Protein Total 7.7 6.0 - 8.5 g/dL [facility] ACCOUNT BILL Albumin 3.9 3.5 - 5.5 g/dL [facility] ACCOUNT BILL Globulin Total 3.8 1.5 - 4.5 g/dL [facility] ACCOUNT BILL Albumin/Globulin Ratio 1.0(L) 1.1 - 2.5 [facility] ACCOUNT BILL Bilirubin Total 0.2 0.1 - 1.2 mg/dL [facility] ACCOUNT BILL Alkaline Phosphatase 119 25 - 150 IU/L [facility] ACCOUNT BILL AST 33 0 - 40 IU/L [facility] ACCOUNT BILL ALT 36 0 - 40 IU/L [facility] ACCOUNT BILL BLOOD SPECIMEN / Unknown 04/12/2008 12:15 PM MEDICARE INTERVIEWER 04/12/2008 5:11 PM MEDICARE INTERVIEWER Narrative Resulting Agency Comment [facility] [place] [address] [place] [address] ??[place] [phone] Carlos Dougherty MD LAB - CHEMISTRY MIMI LOTT [facility] ACCOUNT BILL * CBC W AUTO DIFFERENTIAL (04/12/2008 12:15 PM MEDICARE INTERVIEWER) WBC 8.6 4.0 - 10.5 x10E3/uL [facility] ACCOUNT BILL Comment: ?Please note reference interval change ?for the pediatric CBC With Differential/Platelet RBC 4.71 3.80 - 5.10 x10E6/uL [facility] ACCOUNT BILL Hemoglobin 14.2 11.5 - 15.0 g/dL [facility] ACCOUNT BILL Hematocrit 42.3 34.0 - 44.0 % [facility] ACCOUNT BILL MCV 90 80 - 98 fL [facility] ACCOUNT BILL MCH 30.1 27.0 - 34.0 pg [facility] ACCOUNT BILL MCHC 33.5 32.0 - 36.0 g/dL [facility] ACCOUNT BILL RDW 14.3 11.7 - 15.0 % [facility] ACCOUNT BILL Platelet Count 188 140 - 415 x10E3/uL [facility] ACCOUNT BILL Granulocytes % 60 40 - 74 % [facility] ACCOUNT BILL Lymphocytes % 28 14 - 46 % [facility] ACCOUNT BILL Monocytes % 8 4 - 13 % [facility] ACCOUNT BILL Eosinophils % 3 0 - 7 % [facility] ACCOUNT BILL Basophils % 1 0 - 3 % [facility] ACCOUNT BILL Granulocytes Absolute 5.2 1.8 - 7.8 x10E3/uL [facility] ACCOUNT BILL Lymphocytes Absolute 2.4 0.7 - 4.5 x10E3/uL [facility] ACCOUNT BILL Monocytes Absolute 0.7 0.1 - 1.0 x10E3/uL [facility] ACCOUNT BILL Eosinophils Absolute 0.3 0.0 - 0.4 x10E3/uL [facility] ACCOUNT BILL Basophils Absolute 0.1 0.0 - 0.2 x10E3/uL [facility] ACCOUNT BILL Comment Hematology NOT AVAIL. [facility] ACCOUNT BILL BLOOD SPECIMEN / Unknown 04/12/2008 12:15 PM MEDICARE INTERVIEWER 04/12/2008 5:11 PM MEDICARE INTERVIEWER Narrative [facility] ACCOUNT BILL - 04/13/2008 9:35 AM MEDICARE INTERVIEWER Additional Result Information HEMATOLOGY COMMENTS: ??BLOOD,URINE ([facility]): RESULT NOT AVAILABLE Resulting Agency Comment [facility] [address] ??[facility] [phone] Carlos Dougherty MD LAB - HEMATOLOGY ORD ERABLES [facility] ACCOUNT BILL * (ABNORMAL) URINALYSIS MICROSCOPIC ONLY (04/12/2008 12:13 PM MEDICARE INTERVIEWER) WBC UA None seen 0 - 5 [...] [facility] ACCOUNT BILL Trichomonas UA NOT AVAIL. [facility] ACCOUNT BILL Comment Urine NOT AVAIL. [facility] ACCOUNT BILL 04/12/2008 12:1 3 PM MEDICARE INTERVIEWER 04/12/2008 5:10 PM MEDICARE INTERVIEWER Narrative [facility] ACCOUNT BILL - 04/13/2008 6:10 AM MEDICARE INTERVIEWER Additional Result Information EPITHELIAL CELLS (RENAL) /HPF URINE ([facility]): RESULT NOT AVAILABLE CASTS /LPF URINE ([facility]): RESULT NOT AVAILABLE CAST TYPE ??URINE ([facility]): RESULT NOT AVAILABLE YEAST ??URINE ([facility]): RESULT NOT AVAILABLE SPERM ??URINE ([facility]): RESULT NOT AVAILABLE TRICHOMONAS ??URINE ([facility]): RESULT NOT AVAILABLE COMMENT ??URINE ([facility]): RESULT NOT AVAILABLE Resulting Agency Comment [facility] [address] ??[facility] [phone] Carlos Dougherty MD LAB - URINALYSIS ORD ERABLES Performing Organization Address [facility] Co de Phone Number [facility] ACCOUNT BILL * (ABNORMAL) URINALYSIS DIPSTICK AUTO (04/12/2008 12:13 PM MEDICARE INTERVIEWER) Urinalysis Gross Exam [facility] ACCOUNT BILL Specific [facility] UA 1.020 1.005 - 1.030 [facility] ACCOUNT [...] CATCH PROCEDURE / Unknown 04/12/2008 12:13 PM MEDICARE INTERVIEWER 04/12/2008 5:10 PM MEDICARE INTERVIEWER Narrative Resulting Agency Comment [facility] [address] ??[facility] [phone] Carlos Dougherty MD LAB - URINALYSIS ORD ERABLES Performing Organization Address [facility]/ZIP Co de Phone Number [facility] ACCOUNT BILL * EKG 12-LEAD (04/12/2008) Carlos Dougherty MD ECG ORDERABLES documented in this encounter Visit Diagnoses Diagnosis Preoperative examination- Primary Preoperative examination, unspecified HTN Unspecified essential hypertension GERD (gastroesophageal reflux disease) Esophageal reflux Depression Depressive disorder, not elsewhere classified Psoriasis Other psoriasis Rheumatoid arthritis(714.0) ([facility]) Rheumatoid arthritis documented in this encounter Additional Health Concerns Infection Onset Date Last Indicated Resolved Time 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
--- OUTSIDE RECORDS SUMMARY | 2024-05-11 12:08 | XMS_ITS | Encounter Summary ---
Author Organization [facility] Address [address] [place] [address] Care Team Providers Care Sanding Machine Tender Automatic Name Role Phone Carlos Dougherty MD Primary Care Provider [phone] Reason for Visit * Reason Comments Vomiting Encounter Details Date Type Department Care Team (Late st Contact Info) Description 12/15/2007 11:30 AM CDT Office Visit [facility] Medical [facility] - Internal Medicine [address] [place] [address] Carlos Dougherty MD [address] [place] [address] Nausea with Vomiting (Primary Dx); HTN; Depression; GERD (Gastroesophageal Reflux Disease); Pain in Joint, Lower Leg Social History Tobacco Use Types Packs/Day Years [...] Taken Comments Blood Pressure - - Pulse 72 12/15/2007 11:39 AM CDT Temperature 36.6 ??C (97.9 ??F) 12/15/2007 11:39 AM C DT Respiratory Rate - - Oxygen Saturation - - Inhaled Oxygen Concentration - - Weight - - Height 172.7 cm (5' 8 ) 12/15/2007 11:39 AM CDT Body Mass Index - - documented in this encounter Progress Notes * Farhat Carlos Munroe - 12/15/2007 12:09 PM CDT Karolina Ramos is a 52 y.o. female who c/o recent problems with nausea and vomiting. Not sure what is going. Not sure if Effexor is working. Still cries and lots of stress. Also severe problems with knees for which she is going to ortho soon. Tried Tramadol without relief. Current outpatient prescriptions Medication Sig Dispense Refill ??? lisinopril (PRINIVIL; ZESTRIL) 40 MG tablet Take 40 mg by mouth daily. ??? LASIX PO Take 10 mg by mouth daily. ??? K + 10 PO Take by mouth daily. ??? metoprolol succinate XL 24hr (TOPROL XL) 100 MG tablet Take 100 mg by mouth 2 times daily. ??? felodipine CR 24hr (PLENDIL) 5 MG tablet Take 5 mg by mouth daily. ??? clobetasol (TEMOVATE) 0.05 % ointment Apply to affected area as needed ??? CRISTIAN-D 12 HOUR PO Take by mouth 2 times daily. Pulse 72 Temp (Src) 97.9 ??F (Oral) Ht 1.727 m (5' 8 ) S1 and S2 normal, no murmurs, clicks, gallops or rubs. Regular rate and rhythm. Chest is clear; no wheezes or rales. No edema or JVD. The abdomen is soft without tenderness, guarding, mass, rebound or organomegaly. Bowel sounds are normal. No CVA tenderness or inguinal adenopathy noted. Joints: DJD Encounter Diagnoses Code Name Primary? Qualifier ??? 787.01 Nausea with Vomiting Yes Plan: COMPREHENSIVE METABOLIC PANEL, CBC W AUTO DIFFERENTIAL, LIPASE BLOOD ??? 401.9BX HTN ??? 311L Depression ??? 530.81S GERD (Gastroesophageal Reflux Disease) ??? 719.46 Pain in Joint, Lower Leg -- Start Darvocet prn and refer to Ortho. Depression Orders Placed This Encounter Procedure ??? Comprehensive metabolic panel ??? Cbc w auto differential ??? Lipase blood ??? Venlafaxine hcl 150 mg po cp24 ??? Clobetasol propionate 0.05 % ex lotn ??? Clobetasol propionate 0.05 % ex liqd ??? Propoxyphene n-apap 100-500 mg po tabs * Marilyn Brownlee MA - 12/15/2007 11:45 AM CDT the patient complains of vomiting for 1 week. On and off. Put on Effexor ER 2 months ago and does not feel like it is doing any good. Right knee gave out on her the other day. Very painful all the time. Trouble sleeping. Stopped drinking soda. Wants to get weight loss surgery. Wants prescription for spray and shampoo for psoriasis. documented in this encounter Plan of Treatment Scheduled Orders Name Type Priority Associated Diagnoses Orde r Schedule CBC W AUTO DIFFERENTIAL Lab Routine Nausea with Vomiting Ordered: 12/15/2007 LIPASE BLOOD Lab Routine Nausea with Vomiting Ordered: 12/15/2007 documented as of this encounter Procedures Procedure Name Priority Date/Time Associated Diagnosis Comments COMPREHENSIVE METABOLIC PANEL Routine 12/15/2007 12:41 PM CDT Nausea with Vomiting documented in this encounter Results * (ABNORMAL) COMPREHENSIVE METABOLIC PANEL (12/15/2007 12:41 PM CDT) Glucose 130(H) 65 - 99 mg/dL [facility] ACCOUNT BILL BUN 9 5 - 26 mg/dL [facility] ACCOUNT BILL Creatinine 0.60 0.50 - 1.50 mg/dL [facility] ACCOUNT BILL eGFR by MDRD >60 60 - 128 mL/min [facility] ACCOUNT BILL eGFR by MDRD >60 60 - 128 mL/min [facility] ACCOUNT BILL Comment: Note: ??Persistent reduction for 3 months or more in an eGFR <60 mL/min/1.73 m2 defines CKD. ??Patients with eGFR values >/=60 mL/min/1.73 m2 may also have CKD if evidence of persistent proteinuria is present. Additional information may be found at www.kdoqi.org. BUN/Creatinine Ratio 15 8 - 27 [facility] ACCOUNT BILL Sodium 140 135 - 145 mmol/L [facility] ACCOUNT BILL Potassium 4.1 3.5 - 5.2 mmol/L [facility] ACCOUNT BILL Chloride 103 97 - 108 mmol/L [facility] ACCOUNT BILL CO2 26 20 - 32 mmol/L [facility] ACCOUNT BILL Calcium 9.5 8.5 - 10.6 mg/dL [facility] ACCOUNT BILL Protein Total 7.4 6.0 - 8.5 g/dL [facility] ACCOUNT BILL Albumin 3.7 3.5 - 5.5 g/dL [facility] ACCOUNT BILL Globulin Total 3.7 1.5 - 4.5 g/dL [facility] ACCOUNT BILL Albumin/Globulin Ratio 1.0(L) 1.1 - 2.5 [facility] ACCOUNT BILL Bilirubin Total 0.4 0.1 - 1.2 mg/dL [facility] ACCOUNT BILL Alkaline Phosphatase 114 25 - 150 IU/L [facility] ACCOUNT BILL AST 24 0 - 40 IU/L [facility] ACCOUNT BILL ALT 31 0 - 40 IU/L [facility] ACCOUNT BILL BLOOD SPECIMEN / Unknown 12/15/2007 12:41 PM CDT 12/15/2007 5:49 PM CDT Narrative Resulting Agency Comment [facility] [address] ??[facility] [phone] Carlos Dougherty MD LAB - CHEMISTRY [facility]I [facility] ACCOUNT BILL documented in this encounter Visit Diagnoses Diagnosis Nausea with vomiting- Primary HTN Unspecified essential hypertension Depression Depressive disorder, not elsewhere classified GERD (gastroesophageal reflux disease) Esophageal reflux Pain in joint, lower leg documented in this encounter Care Teams Sanding Machine Tender Automatic Relationship Specialty Start Date End Date Carlos Dougherty MD [address] [place] [id number] PCP - General 10/10/07 10/14/12 documented as of this encounter
--- OUTSIDE RECORDS SUMMARY | 2024-05-11 12:08 | XMS_ITS | Encounter Summary ---
Author Organization [facility] Address [address] [place] [address] Care Team Providers Care Vegetable Canner Name Role Phone Carlos Dougherty MD Primary Care Provider [phone] Reason for Visit * Reason Onset Date Comments MEDICATION REFILL 01/19/2008 Encounter Details Date Type Department Care Team (Late st Contact Info) Description 01/19/[address] [facility] - Internal Medicine [address] [place] [id number] Carlos Dougherty MD [address] [place] [address] MEDICATION REFILL Social History Tobacco Use Types Packs/Day Years [...] Telephone Encounter - Carlos Dougherty MD - 01/19/2008 5:25 PM CDT Try Lunesta 2 mg or generic Ambien 5 mg po hs prn insomnia #15 * Telephone Encounter - Tiffany Linton RN - 01/19/2008 5:19 PM CDT Pharmacy called that insurance needs a prior authorization for Ambien CR. They will pay for Lunesta, or generic ambien regular release. documented in this encounter Plan of Treatment Not on file documented as of this encounter Visit Diagnoses Not on filedocumented in this encounter Care Teams Vegetable Canner Relationship Specialty Start Date End Date Carlos Dougherty MD [address] [place] [id number] PCP - General 10/10/07 10/14/12 documented as of this encounter
--- OUTSIDE RECORDS SUMMARY | 2024-05-11 12:08 | XMS_ITS | Encounter Summary ---
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 Name Role Phone Carlos Dougherty MD Primary Care Provider [phone] Encounter Details Date Type Department Care Team (Latest Contact Info) Description 05/28/2008 4:06 PM ACCESS REP - 05/31/2008 10:10 AM ACCESS REP Hospital Encounter [facility] [address]D SURGICAL UNIT [address] [place] [id number] Charlotte Chacon MD [address] [place] [address] Orthopedics Discharge Disposition: Home or Self Care Social [...] Sign Reading Time Taken Comments Blood Pressure 118/70 05/31/2008 1:00 AM ACCESS REP Pulse 70 05/31/2008 1:00 AM ACCESS REP Temperature 37.1 ??C (98.8 ??F) 05/31/2008 1:00 AM CS T Respiratory Rate 22 05/31/2008 1:00 AM ACCESS REP Oxygen Saturation 94% 05/28/2008 3:45 PM ACCESS REP Inhaled Oxygen Concentration 100% 05/28/2008 1 :51 PM ACCESS REP Weight 145.6 kg (321 lb) 05/28/2008 10:12 AM ACCESS REP Height 172.7 cm (5' 8 ) 05/28/2008 10:12 AM ACCESS REP Body Mass Index 48.81 05/28/2008 10:12 AM ACCESS REP documented in this encounter Discharge Summaries * Charlotte Chacon MD - [facility] Summary PATIENT NAME: KAROLINA RAMOS MR#: [id number] SEX: F : 1955 PHYS: CHARLOTTE CHACON M.D. ROOM#: ADMISSION DATE: 05/28/2008 DISCHARGE DATE: 05/31/2008 HISTORY: Karolina Ramos is a 53-year-old female who was admitted for revision of her polyethylene component. She had no intraoperative, perioperative, or postoperative complications. She was doing very well with therapy, was walking all over the orthopedic floor without any problems, and expressed a strong desire for discharge. The wound was healing well. There was no evidence of DVT. Prior to discharge, she was given a full set of precautions, which she understood well, including to notify us immediately should she have any problems. CHARLOTTE CHACON M.D. J S:mq - [id number] cc: SS REP documented in this encounter Discharge Instructions * Discharge Instructions* Carla Aden RN - 05/31/2008 7:58 AM ACCESS REP Discharge Instructions for: Karolina Ramos START taking these medications enoxaparin (LOVENOX) injection Inject 30 mg subcutaneously every 12 hours. Qty: 10 Refills: 0 metoprolol succinate XL 24hr (TOPROL XL) 100 MG tablet Take 1 Tab by mouth 2 times daily. Qty: 0 Refills: 0 oxycodone-acetaminophen (PERCOCET) 5-325 MG tablet Take 1 Tab by mouth every 4 hours as needed for Pain. Qty: 0 Refills: 0 CONTINUE these medications which have NOT CHANGED lisinopril (PRINIVIL; ZESTRIL) 10 MG tablet Take 1 Tab by mouth daily. Qty: 30 Refills: 5 felodipine CR 24hr (PLENDIL) 5 MG tablet Take 1 Tab by mouth daily. Qty: 30 Refills: 5 metoprolol succinate XL 24hr (TOPROL XL) 100 MG tablet Take 1 Tab by mouth 2 times daily. Qty: 60 Refills: 5 COLACE 100 MG CAPS Take 100 mg by mouth daily. Clobetasol Propionate 0.05 % SHAM by Apply externally route. Use as needed for shampoo for psoriasis of scalp Qty: 1 bottle Refills: prn Associated Diagnoses: Psoriasis clobetasol propionate powd 50 mg in DERMAZINC SPRAY Apply to affected area. Use as needed for large areas of body affected by psoriasis Qty: 1 bottle Refills: prn Associated Diagnoses: Psoriasis eszopiclone (LUNESTA) 2 MG tablet Take 1 Tab by mouth nightly as needed for Insomnia. Qty: 15 Refills: 0 CLOBETASOL PROPIONATE (CLOBEX) 0.05 % LOTN 1 Applicatorful by Apply externally route daily. Qty: 4 oz Refills: 3 CLOBETASOL PROPIONATE (CLOBEX SPRAY) 0.05 % LIQD 1 Squirt by Apply externally route daily. Qty: 4 oz Refills: 5 STOP taking these medications VICODIN 5-500 MG TABS STOP propoxyphene napsylate-acetaminophen (DARVOCET) 100-500 MG tablet STOP Discharge Procedure Orders PATIENT TO CALL PHYSICIAN FOR APPOINTMENT Follow up with Dr. Chacon on 06/08/08 Call [phone] if any questions Bring all medications to visit. PATIENT TO NOTIFY PHYSICIAN IF... Order Specific Question Answer Comments for which symptoms... excessive bleeding at surgical site : fever over 101 degrees : numbness, tingling, or changes in color in any extremity : excessive redness or unusual drainage at surgical site or I.V. site : unrelieved pain and/or swelling occurs : unable to urinate in 6 - 8 hours : persistent nausea or vomiting : no bowel movement in 3 days REGULAR DIET AT HOME MAY SHOWER Order Specific Question Answer Comments after... One day KNEE PRECAUTIONS WEIGHT BEARING TOLERATED AT HOME FOLLOW INSTRUCTIONS PER PHYSICAL THERAPY Do not smoke. Avoid second hand smoke. The following belonging have been returned to you Clothing Clothing: Yes Secured: Shirt;Pants;Footwear;Undergarments (to PACU) Jewelry Jewelry: None Electronics Electronic Items: Yes Secured: Cell Phone (in clothes bag to PACU at pt request) Dentures Dentures/Retainers: Yes Dentures Uppers: Secured (upper denture to PACU) Vision Visual Aids: Yes Glasses: Secured (reading glasses in clothing bag to PACU) Hearing Aids Hearing Aids: None Equipment/Assistive Devices Equipment with Patient: Yes Secured: CPAP/Bi-PAP;Walker (to Pacu at pt request) Equipment At Home: Walker-2 Wheeled Home Medications Home Medications: None Miscellaneous Belongings Miscellaneous Items: Yes Secured: (cpap and cell phone in clothes to PACU) Monetary Monetary Items: None WEIGHT MONITORING - If you have heart failure, weigh yourself every morning. Contact your physician if your weight increases by 3 pounds in 1 day OR 5 pounds in 1 week. WHAT TO DO IF SYMPTOMS WORSEN - Contact your physician if you have shortness of breath/difficulty breathing, or any swelling of your legs, ankles or feet. The discharge and medication instructions have been reveiwed with me and my questions have been answered. I have received a copy of the discharge instructions. 05/31/2008 SS REP * Discharge Instructions* Document, Scanned - 05/28/2008 12:00 AM ACCESS REP documented in this encounter Medications at Time [...] 05/31/2008 10/18/2014 documented as of this encounter Progress Notes * Lucrecia Anderson RN - 05/31/2008 10:36 AM CST Pt has already discharged home. Pt needs c-rn/pt/cpm. I received voice mail message from discharging nurse-pt going to [facility] at discharge and will need c. I have notified Yajaira aaron/[facility] to arrange for. Lucrecia [phone] SS REP * Nanette Moore - 05/31/2008 10:00 AM CST BMI Nutrition Note Height: 5' 8 (172.7 cm) Weight: 321 lb (145.605 kg) BMI (Calculated): 48.91 Nanette Moore SS REP * Hortencia Jaquez OT - 05/31/2008 9:32 AM CST OT order received. Patient sitting EOB and reported going home today. Patient reported she has ww, 3-in-1 and does not need OT services due to 'been through this before and I'm doing well'. Reviewed PT notes and patient is mod. I with fxnal mobility. No further OT needs. Will sign off. KR N * Charlotte Chacon MD - 05/31/2008 7:31 AM CST Alert. No chest pain or sob. Wound ok. Calf ok. Doing very well with pt. Home today Instructed. Rtonext week for suture removal. Home pt and cpm lovenox SS REP * Gabby Cruz, PT - 05/30/2008 11:58 AM CST Amb. 300 ft. SBA today, no c/o popping during second session. Pt. Wanted to sit EOB for lunch, CPM to be reapplied later by nsg. Gabby Cruz, MPT SS REP Gabby Hernandez, PT - 05/30/2008 10:04 AM CST During there ex, namely seated heel slides, pt. C/o popping in the rt. Knee. No increased pain. Pt.Stayed up to chair. Charlotte Hernandez MD - 05/30/2008 6:17 AM CST Alert. No chest pain or sob. Knee feels ok Expected pain Dressing dry. Continue pt today and plan discharge for tomorrow SS REP * Chelo Carnes, PT - 05/29/2008 9:36 AM CST PT eval complete. Please see doc flow sheet and care plan for details. Patient requires min A sup/sit and sit/stand and ambulated 40 feet with ww CGA. Patient will benefit from continued PT to increase safety and independence with mobility 3-5 days with goal of discharge home with assist from sister. SS REP * Charlotte Chacon MD - 05/29/2008 7:09 AM CST Alert No chest pain or sob. Expected pain Plan pt And increase activity as tolerated SS REP * Bobo Navarrete RN - 05/28/2008 4:14 PM CST Patient arrived from PACU. 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 Patient has Zander wrapright knee with CPM. Oriented patient to room, call light, and phone. Will continue to monitor SS REP * Musa De Souza DO - 05/28/2008 2:27 PM CST POST-OP ANESTHESIA EVALUATION Evaluated By: Musa De Souza DO, 05/28/2008 2:27 PM Karolina Ramos is a 53 y.o. female Post-op Evaluation POST-OP EVALUATION A post-op evaluation was performed on the patient and he/she has met Discharge requirements: No Apparent Complications N * Hasmukh Philippe CRNA - 05/28/2008 11:08 AM CST PRE-ANESTHESIA EVALUATION Evaluated By: Jacob Ward MD, 05/28/2008 11:08 AM Karolina Ramos is a 53 y.o. female Purpose: Scheduled Procedure Scheduled procedure: revision right knee arthroplasty Hospital Problem List Patient Active Problem List Diagnoses Code ??? Generalized Anxiety Disorder 300.02 ??? Depression 311L ??? HTN 401.9BX ??? GERD (Gastroesophageal Reflux Disease) 530.81S ??? Psoriasis 696.1U ??? Rheumatoid Arthritis 714.0 ??? MRSA (Methicillin Resistant Staphylococcus Aureus) 041.11L ??? ERROL (Obstructive Sleep Apnea) 327.23H ??? Screening Mammogram V76.12B ??? Pap Smear, High-Risk (Screening, no Prior Abnormality) V15.89C ??? S/P TKR (Total Knee Replacement) V43.65X Allergies Penicillins Past Medical History Diagnosis Date ??? Arthritis rheumatoid ??? Edema bilateral ankles ??? MRSA (METHICILLIN RESISTANT STAPHYLOCOCCUS AUREUS) post right foot surgery ??? Psoriasis right leg, both elbows, scalp ??? Constipation ??? Sleep Apnea uses cpap machine ??? HYPERTENSION ??? Overweight, Obesity and Other Hyperalimentation ??? Depression ??? GERD (Gastroesophageal Reflux Disease) Meds Prescriptions prior to admission Medication Sig Dispense Refill ??? lisinopril (PRINIVIL; ZESTRIL) 10 MG tablet Take 1 Tab by mouth daily. 30 5 ??? felodipine CR 24hr (PLENDIL) 5 MG tablet Take 1 Tab by mouth daily. 30 5 ??? metoprolol succinate XL 24hr (TOPROL XL) 100 MG tablet Take 1 Tab by mouth 2 times daily. 60 5 ??? COLACE 100 MG CAPS Take 100 mg by mouth daily. ??? VICODIN 5-500 MG TABS Take 1 Tab by mouth every 6 hours. Do not take more than 8 tablets in 24 hours ??? Clobetasol Propionate 0.05 % SHAM by Apply externally route. Use as needed for shampoo for psoriasis of scalp 1 bottle prn ??? clobetasol propionate powd 50 mg in DERMAZINC SPRAY Apply to affected area. Use as needed for large areas of body affected by psoriasis 1 bottle prn ??? eszopiclone (LUNESTA) 2 MG tablet Take 1 Tab by mouth nightly as needed for Insomnia. 15 0 ??? CLOBETASOL PROPIONATE (CLOBEX) 0.05 % LOTN 1 Applicatorful by Apply externally route daily. 4 oz 3 ??? CLOBETASOL PROPIONATE (CLOBEX SPRAY) 0.05 % LIQD 1 Squirt by Apply externally route daily. 4 oz5 ??? propoxyphene napsylate-acetaminophen (DARVOCET) 100-500 MG tablet Take 1 Tab by mouth every 6 hours as needed for Pain. 30 0 Past Medical History Past Medical History Diagnosis Date ??? Arthritis rheumatoid ??? Edema bilateral ankles ??? MRSA (METHICILLIN RESISTANT STAPHYLOCOCCUS AUREUS) post right foot surgery ??? Psoriasis right leg, both elbows, scalp ??? Constipation ??? Sleep Apnea uses cpap machine ??? HYPERTENSION ??? Overweight, Obesity and Other Hyperalimentation ??? Depression ??? GERD (Gastroesophageal Reflux Disease) Past Surgical History Past Surgical History Procedure Date ??? Arthroplasty 2005 left ??? Bunionectomy 2006 right ??? Bunionectomy 1993 left ??? Tubal ligation, laparoscopic 1976 ??? Breast reduction 1993 bilat ??? Back surgery 1995 [id number] ??? Ankle fracture tx 1998 right ??? Ankle fracture tx 1999 hardware removed ??? Salpingo-oophorectomy 2004 bilat ??? Arthroplasty 2008 right knee,2008 ??? Knee arthroscopy 1996 left ??? Knee arthroscopy 1996 right ??? Hysterectomy 1988 vaginal Past Social History History Social History ??? Marital Status: Spouse Name: N/A Number of Children: N/A ??? 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 Tobacco Use: Yes -- for 19.0 years 5 cigarettes per day ??? Alcohol Use: Yes occasional ??? Drug Use: No ??? Sexually Active: Not on file Other Topics Concern ??? Not on file Social History Narrative ??? No narrative on file Last Vital Signs VITAL SIGNS Temp: 97.6 ??F Pulse: 64 Resp: 16 BP: 121/75 mmHg Weight: 321 lb Height: 5' 8 SpO2: 96 % Pre-Eval Exam PREVIOUS REVIEW I reviewed previous documentation: Yes PHYSICAL EXAM NPO status: Since Midnight;Except Oral meds with H2O Heart Sounds: S1 S2 Respiratory Pattern/Effort: CTA Oriented x 3: Yes Teeth: Dentures Upper (Full denture upper) Airway Class: II ANESTHESIA ASA: III Anesthesia Choices: General Post-op at the request of the surgeon: (Pt declines nerve block) Post-Op: PACU PRE-EVAL REVIEW I have reviewed all previously documented physician evaluations: Yes Anesthesia pre op re evaluation by Hasmukh Philippe CRNA 05/28/2008 12:14 PM SS REP * Blanca Mahmood RN - 05/27/2008 5:27 PM CST Original Surgery was here on 04-14-08.Last EKG ,CXR done 04-12-08. SS REP documented in this encounter H&P Notes * Charlotte Chacon MD - [facility]28[facility]2008 [facility] Preoperative History and Physical PATIENT NAME: KAROLINA RAMOS MR#: [id number] ROOM#: SEX: F ADMISSION DATE: 05/28/2008 : 1955 PHYSICIANS NAME: CHARLOTTE CHACON M.D. DATE OF SURGERY: HISTORY: Karolina Ramos is a 53-year-old female who is approximately 6 weeks status post a posterior stabilized right total knee replacement. She has had two episodes where the polyethylene insert has slipped posteriorly and she presents now for revision of polyethylene insert. PAST MEDICAL HISTORY: Please see the recent chart. REVIEW OF SYSTEMS: CONSTITUTIONAL: She has had no recent chest pain, shortness of breath, abdominal pain or change in bowel or bladder habits. PHYSICAL EXAMINATION: GENERAL: Alert female. HEAD, EARS, EYES, NOSE AND THROAT: Clear. CHEST: Clear. CARDIOVASCULAR: Normal sinus rhythm. ABDOMEN: Soft, nontender abdomen. EXTREMITIES: Reveals a well-healed surgical wound without evidence of infection or DVT. Plan is for revision of her polyethylene insert. The risks, benefits, alternatives and possible complications were explained. She accepts and requests to proceed. I have explained the nature, purpose and necessity of the operation/procedure, possible alternative methods of treatment, and risks involved, and the possibility of complication. End of Report. CHARLOTTE CHACON M.D. J S:mq - [id number] cc: SS REP documented in this encounter Procedure Notes * Document, Scanned - 05/28/2008 12:00 AM CSTAssociated Order(s): CARDIAC, EKG ORDER * Document, Scanned - 05/28/2008 12:00 AM CSTAssociated Order(s): CARDIAC, EKG ORDER documented in this encounter OR Notes * Operative - Charlotte Chacon MD - 05/31/2008 7:30 [facility] Operative Report PATIENT NAME: KAROLINA RAMOS MR#: [id number] ROOM#: SEX: F SURGEON: CHARLOTTE CHACON M.D. : 1955 SURGERY DATE: PREOPERATIVE DIAGNOSIS: Subluxing right knee. POSTOPERATIVE DIAGNOSIS: Subluxing right knee. PROCEDURE PERFORMED: Revision of polyethylene component. ANESTHESIA: General. OPERATIVE REPORT: Following premedication and informed consent, the patient was taken to the operating room and given a general anesthetic. After an adequate level of anesthesia had been obtained, the patient's knee was prepped and draped in the usual sterile fashion using iodoform preparation to skin. Skin incision through the previous scar site was made. A medial parapatellar capsulotomy was performed. The knee joint was then very carefully inspected. At the time of the original surgery, the lateral structures were pie-crusted to balance the ligaments. It appears as if she may have had some significant disruption of that, leaving the medial thigh tighter than the lateral thigh. On flexion of the knee, external rotation of the hip, and applying a varus stress to the knee, the knee subluxed. Therefore, the ligaments were re-balanced and a dished 13- mm polyethylene component was placed. No further subluxation was noted. Reasonable stability was noted, and on marked flexion the subluxation was corrected. The knee appeared to be reasonably stable in the anterior- posterior direction. Wound was irrigated. No evidence of infection was noted. Capsule was repaired using #1 Vicryl ligatures. Subcutaneous tissue was closed using 2-0 Vicryl ligatures. Skin was closed using sterile stainless steel skin alex. Appropriate sterile dressing was applied. The patient tolerated the procedure well and was taken to the recovery room in good condition with stable vital signs. CHARLOTTE CHACON M.D. J S:mq - [id number] cc: SS REP documented in this encounter Miscellaneous Notes * Miscellaneous Scans - Document, Scanned - 05/28/2008 12:00 AM ACCESS REP * Miscellaneous Scans - Document, Scanned - 05/28/2008 12:00 AM ACCESS REP * Miscellaneous Scans - Document, Scanned - 05/28/2008 12:00 AM ACCESS REP * Miscellaneous Scans - Document, Scanned - 05/28/2008 12:00 AM ACCESS REP * Miscellaneous Scans - Document, Scanned - 05/28/2008 12:00 AM ACCESS REP * Miscellaneous Scans - Document, Scanned - 05/28/2008 12:00 AM ACCESS REP * Miscellaneous Scans - Document, Scanned - 05/28/2008 12:00 AM ACCESS REP * Miscellaneous Scans - Document, Scanned - 05/28/2008 12:00 AM ACCESS REP * Miscellaneous Scans - Document, Scanned - 05/28/2008 12:00 AM ACCESS REP documented in this encounter Plan of Treatment Not on file documented as of this encounter Procedures Procedure Name Priority Date/Time Associated Diagnosis Comments CARDIAC EKG ORDER 06/03/2008 2:0 6 PM ACCESS REP PT-INR Routine 05/31/2008 3:55 AM ACCESS REP Cmp Int Orth Dev/Gft NOS (HCC) PT-INR Routine 05/30/2008 5:47 AM ACCESS REP Cmp Int Orth Dev/Gft NOS (HCC) PT-INR Routine 05/29/2008 4:40 AM ACCESS REP Cmp Int Orth Dev/Gft NOS (HCC) HGB HCT PANEL Routine 05/29/2008 4:40 AM ACCESS REP Cmp Int Orth Dev/Gft NOS (HCC) OT EVAL AND TREAT Routine 05/28/2008 4:2 0 PM ACCESS REP OXYGEN Routine 05/28/2008 2:05 PM ACCESS REP PULSE OXIMETRY, CONTINUOUS Routine 05/28/2008 2:05 PM ACCESS REP PT-INR Timed 05/28/2008 10:20 AM ACCESS REP Cmp Int Orth Dev/Gft NOS (HCC) CBC W AUTO DIFFERENTIAL Timed 05/28/2008 10:20 AM ACCESS REP Cmp Int Orth Dev/Gft NOS (HCC) COMPREHENSIVE METABOLIC PANEL Timed 05/28/2008 10:20 AM ACCESS REP Cmp Int Orth Dev/Gft NOS (HCC) URINALYSIS REFLEX TO MICROSCOPIC NO CULTURE STAT 05/28/2008 10:05 AM ACCESS REP Cmp Int Orth Dev/Gft NOS (HCC) documented in this encounter Results * CARDIAC, EKG ORDER (06/03/2008 2:06 PM ACCESS REP) Narrative Procedure Note Document, Scanned - 05/28/2008 12:00 AM ACCESS REP Transcriptions Document, Scanned - 05/28/2008 12:00 AM ACCESS REP Scanned Document CARDIAC SERVICES ORD ERABLES * (ABNORMAL) PT-INR (05/31/2008 3:55 AM ACCESS REP) PT 11.6(H) 9.3 - 11.4 seconds [facility] INR 1.1 SEE BELOW [facility] Comment: 0.9-1.2 Normal 2.0-3.0 Therapeutic 2.5-3.5 High Risk BLOOD SPECIMEN / Unknown 05/31/2008 3:55 AM ACCESS REP 05/31/2008 4:13 AM ACCESS REP Charlotte Chacon MD LAB - COAGULATION O RDERABLES [facility] [address] [place] [address] * PT-INR (05/30/2008 5:47 AM ACCESS REP) PT 11.2 9.3 - 11.4 seconds [facility] INR 1.1 SEE BELOW [facility] Comment: 0.9-1.2 Normal 2.0-3.0 Therapeutic 2.5-3.5 High Risk BLOOD SPECIMEN / Unknown 05/30/2008 5:47 AM ACCESS REP 05/30/2008 6:05 AM ACCESS REP Charlotte Chacon MD LAB - COAGULATION O RDBIPIN Performing Organization Address [place]/[facility] Co de Phone Number [facility] [address] [place] [address] * PT-INR (05/29/2008 4:40 AM ACCESS REP) PT 10.8 9.3 - 11.4 seconds [facility] INR 1.0 SEE BELOW [facility] Comment: 0.9-1.2 Normal 2.0-3.0 Therapeutic 2.5-3.5 High Risk BLOOD SPECIMEN / Unknown 05/29/2008 4:40 AM ACCESS REP 05/29/2008 5:07 AM ACCESS REP Charlotte Chacon MD LAB - COAGULATION O BAYLEE Performing Organization Address [facility] Co de Phone Number [address] [address] * (ABNORMAL) HGB HCT PANEL (05/29/2008 4:40 AM ACCESS REP) Hemoglobin 11.2(DL) 11.7 - 15.5 gm/dL [facility] Hematocrit 35.0(DL) 36 - 46 % [facility] BLOOD SPECIMEN / Unknown 05/29/2008 4:40 AM ACCESS REP 05/29/2008 5:07 AM ACCESS REP Charlotte Chacon MD LAB - HEMATOLOGY OR DERABLES Performing Organization Address [facility] Co de Phone Number [address] [address] * PT-INR (05/28/2008 10:20 AM ACCESS REP) PT 10.7 9.3 - 11.4 seconds [facility] INR 1.0 SEE BELOW [facility] Comment: 0.9-1.2 Normal 2.0-3.0 Therapeutic 2.5-3.5 High Risk BLOOD SPECIMEN / Unknown 05/28/2008 10:20 AM ACCESS REP 05/28/2008 10:23 AM ACCESS REP Jacob Ward MD LAB - COAGULATION OR DERABLES [facility] [address] [place] [address] * (ABNORMAL) COMPREHENSIVE METABOLIC PANEL (05/28/2008 10:20 AM ACCESS REP) Glucose 115.(H) 65 - 105 mg/dL [facility] BUN 14. 7 - 18 mg/dL [facility] Creatinine .67 0.5 - 1.2 mg/dL [facility] BUN/Creatinine Ratio 20.8 [facility] Sodium 141. 137 - 145 mmol/L [facility] Potassium 4.5 3.6 - 5.0 mmol/L [facility] Chloride 104. 98 - 107 mmol/L [facility] CO2 25. 22 - 31 mmol/L [facility] Anion Gap 12. [facility] Calcium 9.4 8.4 - 10.6 mg/dL [facility] Alkaline Phosphatase 118. 38 - 126 U/L [facility] ALT 21. 7 - 56 U/L [facility] AST 29. 5 - 40 U/L [facility] Bilirubin Total .3 0.2 - 1.3 mg/dL [facility] Protein Total 8.0 6.3 - 8.2 gm/dL [facility] Albumin 3.9 3.9 - 5.0 gm/dL [facility] eGFR by MDRD >60 SEE BELOW ml/min/1.7 3 m2 [facility] Comment: >60 Normal Chronic Disease <60 Renal Failure <15 BLOOD SPECIMEN / Unknown 05/28/2008 10:20 AM ACCESS REP 05/28/2008 10:23 AM ACCESS REP Jacob Ward MD LAB - CHEMISTRY MIMI LOTT [facility] [address] [place] [address] * CBC W AUTO DIFFERENTIAL (05/28/2008 10:20 AM ACCESS REP) [facility] WBC 9.7 4.0 - 11.0 K/CUMM [facility] RBC 4.53 3.80 - 5.30 M/CUMM [facility] Hemoglobin 13.1 11.7 - 15.5 gm/dL [facility] Hematocrit 40.1 36 - 46 % [facility] MCV 88.5 80 - 99 fL [facility] MCH 28.9 26 - 34 pg [facility] MCHC 32.7 32 - 36 gm/dL [facility] RDW 14.4 11.5 - 14.5 % [facility] Platelet Count 268 150 - 400 K/CUMM [facility] Granulocytes % 65.4 43 - 70 % [facility] Lymphocytes % 25.4 22 - 41 % [facility] Monocytes % 7.7 2 - 13 % [facility] Eosinophils % 1.2 0 - 6 % [facility] Basophils % 0.3 0 - 2 % [facility] Granulocytes Absolute 6.3 1.7 - 7.7 [facility] Lymphocytes Absolute 2.5 1.0 - 3.0 [facility] Monocytes Absolute 0.7 0.2 - 1.0 [facility] Eosinophils Absolute 0.1 0.0 - 0.4 [facility] Basophils Absolute 0.0 0.0 - 0.1 [facility] BLOOD SPECIMEN / Unknown 05/28/2008 10:20 AM ACCESS REP 05/28/2008 10:23 AM ACCESS REP Jacob Ward MD LAB - HEMATOLOGY ANATOLY VOSS [facility] [address] [place] [address] * (ABNORMAL) URINALYSIS ROUTINE AUTO (05/28/2008 10:05 AM ACCESS REP) Source clean catch [facility] Color UA Yellow [facility] Character UA Clear [facility] Specific [place] UA 1.025 1.002 - 1.030 [facility] pH UA 5.0 5.0 - 8.0 [facility] Protein UA NEGATIVE NEG [facility] Blood UA NEGATIVE NEG [facility] Leukocyte UA NEGATIVE NEG [facility] Nitrite UA POSITIVE NEG [facility] Glucose UA NEGATIVE NEG [facility] Ketone UA NEGATIVE NEG [facility] Bilirubin UA NEGATIVE NEG [facility] Urobilinogen UA 0.2 0.1 - 1.0 E.U./dl [facility] Epithelial Cell UA 2-5(H) 0 - 1 /HPF [facility] Bacteria UA 1+ none [facility] Comment Bacteria UA: less than 12 cc submitted. [facility] URINE SPECIMEN OBTAINED BY CLEAN CATCH PROCEDURE / Unknown 05/28/2008 10:05 AM ACCESS REP 05/28/2008 10:24 AM ACCESS REP Jacob Ward MD LAB - URINALYSIS ORD ERABLES [address] [address] documented in this encounter Visit Diagnoses Diagnosis Unspecified mechanical complication of internal orthopedic device, implant, and graft (HCC) Unspecified mechanical complication of internal orthopedic device, implant, and graft documented in this encounter Administered Medications Inactive Administered Medications - up to 3 most recent administrations Medication Order MAR Action Action Date Dose Rate Site dextrose 5 % and 0.45% nacl infusion at 75 mL/hr, Intravenous, CONTINUOUS, Starting on Sat05/28/08 at 1415, Until Sat05/31/08 at 2222 $ New Bag/Syringe 05/29/2008 9:19 PM ACCESS REP 75 mL/ hr $ New Bag/Syringe 05/29/2008 7:48 AM ACCESS REP 75 mL /hr dextrose 5 % and 0.45% nacl infusion 1 dose, Starting on Sat05/28/08 at 1459, Until Sat05/28/08 at 1655, MATILDE KRAFT: Cabinet Override $ Admin. by Other Provider 05/28/2008 3:00 PM ACCESS REP docusate sodium (COLACE) capsule 100 mg 100 mg, Oral, 2 TIMES DAILY, First dose on Sat05/28/08 at 2100, Until Discontinued, Hold for frequent stools $ Given 05/31/2008 8:12 AM ACCESS REP 100 mg $ Given 05/30/2008 9:09 PM ACCESS REP 100 mg $ Given 05/30/2008 9:41 AM ACCESS REP 100 mg enoxaparin (LOVENOX) injection 30 mg 30 mg, Subcutaneous, EVERY 12 HOURS, First dose on 05/29/08 at 0900, Until Discontinued, (for prefilled syringes) do not expel air bubble from the syringe prior to the injection Dc when inr is 2.0 $ Given 05/31/2008 8:12 AM ACCESS REP 30 mg Abdom inal Tissue $ Given 05/30/2008 9:09 PM ACCESS REP 30 mg Ab dominal Tissue $ Given 05/30/2008 9:42 AM ACCESS REP 30 mg Ab dominal Tissue famotidine (PEPCID) injection 20 mg 20 mg, Intravenous, PRE-OP ONCE, 1 dose $ Given 05/28/2008 11:33 AM ACCESS REP 20 mg famotidine (PEPCID) injection 1 dose, Starting on Sat05/28/08 at 1132, Until Sat05/28/08 at 1645, MARIO SALOMON: Cabinet Override $ Admin. by Other Provider 05/28/2008 11:45 AM ACCESS REP felodipine CR 24hr (PLENDIL) tablet 5 mg 5 mg, Oral, DAILY, First dose on 05/29/08 at 1430, Until Discontinued, Do not crush, chew, or cut in half. $ Given 05/31/2008 8:12 AM ACCESS REP 5 mg $ Given 05/29/2008 5:15 PM ACCESS REP 5 mg hydrocodone-acetaminoph en (NORCO) 5-325 MG tablet 1 Tab 1 tablet, Oral, EVERY 6 HOURS PRN, Pain, Starting on 05/29/08 at 1431, Until Sat05/31/08 at 2222 $ Given 05/30/2008 5:07 PM ACCESS REP 1 tablet HYDROmorphone (DILAUDID) injection 0.5 mg 0.5 mg, Intravenous, ONCE, 1 dose, On Sat05/28/08 at 1445 $ Given 05/28/2008 2:57 PM ACCESS REP 0.5 mg HYDROmorphone (DILAUDID) injection 0.5 mg 0.5 mg, Intravenous, ONCE, 1 dose, On Sat05/28/08 at 1515 $ Push 05/28/2008 3:15 PM ACCESS REP 0.5 mg lactated ringers infusion at 20 mL/hr, Intravenous, PRE-OP CONTINUOUS, Until 05/31/08 at 2222 $ Given 05/28/2008 10:33 AM ACCESS REP 20 mL/hr Left Hand lidocaine (XYLOCAINE) 1 % injection Infiltration, PRE-OP ONCE, 1 dose, May be used (0.2 ml locally to anesthetize prior to insertion if patient has NKA to Lidocaine). Buffered with sodium bicarbonate (NaHCO3). $ Given 05/28/2008 10:32 AM ACCESS REP 0.25 mL meperidine (DEMEROL) injection 1 dose, Starting on Sat05/28/08 at 1216, Until Sat05/28/08 at 1645, HASMUKH PHILIPPE: Cabinet Override $ Admin. by Other Provider 05/28/2008 12:30 PM ACCESS REP mg metoprolol succinate XL 24hr (TOPROL XL) tablet 100 mg 100 mg, Oral, 2 TIMES DAILY, First dose on Sat05/29/08 at 2100, Until Discontinued, May cut in half but do not crush or chew $ Given 05/31/2008 8:12 AM ACCESS REP 100 mg $ Given 05/30/2008 9:07 PM ACCESS REP 100 mg $ Given 05/29/2008 9:20 PM ACCESS REP 100 mg midazolam (VERSED) injection 2 mg 2 mg, Intravenous, PRE-OP ONCE, 1 dose $ Given 05/28/2008 12:07 PM ACCESS REP 2 mg morphine 1 mg/ml LICENSED NUCLEAR OPERATOR Intravenous, LICENSED NUCLEAR OPERATOR, Until Sat05/28/08 at 1649, ................. - LICENSED NUCLEAR OPERATOR Dose: 0.8 mg dose with 12 min lockout (4 mg/hr) - Contact physician if respiratory rate falls below 10/minute. If respiratory rate < 7/min administer naloxone (Narcan) 0.2 mg IV STAT, begin oxygen at 4-10 LPM, STOP LICENSED NUCLEAR OPERATOR immediately, and contact physician. $ Given 05/28/2008 2:07 PM ACCESS REP 50 mg morphine 1 mg/ml LICENSED NUCLEAR OPERATOR Intravenous, LICENSED NUCLEAR OPERATOR, Until Sat05/31/08 at 2222, ................. - LICENSED NUCLEAR OPERATOR Dose: 0.8mg dose with 12 min lockout ( 4 mg/hr) - Contact physician if respiratory rate falls below 10/minute. If respiratory rate < 7/min administer naloxone (Narcan) 0.2 mg IV STAT, begin oxygen at 4-10 LPM, STOP LICENSED NUCLEAR OPERATOR immediately, and contact physician. $ Given 05/29/2008 11:40 AM ACCESS REP 50 mg morphine LICENSED NUCLEAR OPERATOR 1 dose, Starting on Sat05/28/08 at 1401, Until Sat05/28/08 at 1407, ERIC AMEZQUITA: Cabinet Override ondansetron (ZOFRAN) injection 4 mg 4 mg, Intravenous, EVERY 4 HOURS PRN, Nausea/Vomiting, Starting on Sat05/28/08 at 1646, Until Sat05/31/08 at 2222 $ Given 05/30/2008 5:44 PM ACCESS REP 4 mg oxycodone-acetaminophen (PERCOCET) 5-325 MG tablet 1 Tab 1 tablet, Oral, EVERY 4 HOURS PRN, Pain, Starting on Sat05/28/08 at 1644, Until Sat05/31/08 at 2222 $ Given 05/30/2008 10:55 AM ACCESS REP 1 tablet $ Given 05/29/2008 8:12 AM ACCESS REP 1 tablet $ Given 05/29/2008 4:06 AM ACCESS REP 1 tablet oxycodone-acetaminophen (PERCOCET) 7.5-325 MG tablet 1 Tab 1 tablet, Oral, EVERY 4 HOURS PRN, Pain, Starting on Sat05/28/08 at 1646, Until Sat05/31/08 at 2222 $ Given 05/31/2008 8:16 AM ACCESS REP 1 tablet $ Given 05/30/2008 9:09 PM ACCESS REP 1 tablet $ Given 05/29/2008 6:44 PM ACCESS REP 1 tablet temazepam (RESTORIL) capsule 15 mg 15 mg, Oral, AT BEDTIME PRN, Insomnia, Starting on Sat05/28/08 at 1647, Until Sat05/31/08 at 2222 $ Given 05/30/2008 9:09 PM ACCESS REP 15 mg $ Given 05/29/2008 9:20 PM ACCESS REP 15 mg vancomycin (VANCOCIN) 15 mg/kg in dextrose 5% IVPB 15 mg/kg, Intravenous, PRE-OP ONCE, 1 dose, Administer 90 minutes prior to surgical incision. Infuse over 60 minutes. $ Given 05/28/2008 12:32 PM ACCESS REP 15 mg/kg 166.7 mL/hr vancomycin (VANCOCIN) 2,000 mg in dextrose 5% IVPB 2,000 mg, Intravenous, ONCE, 1 dose, On Sat05/28/08 at 1015, Refrigerate $ Given 05/28/2008 10:15 AM ACCESS REP 2,000 mg 250 mL/hr vancomycin (VANCOCIN) 2,000 mg in dextrose 5% IVPB 2,000 mg, Intravenous, ONE TIME, 1 dose, Starting on Sat05/28/08 at 2200, Until Sat05/28/08 at 2214, Refrigerate $ Given 05/28/2008 10:14 PM ACCESS REP 2,000 mg 250 mL/hr warfarin (COUMADIN) dosing per Provider Oral, DAILY AT 1700, First dose on Sat05/28/08 at 1700, Until Discontinued $ Given 05/28/2008 5:00 PM ACCESS REP mg warfarin (COUMADIN) tablet 5 mg 5 mg, Oral, ONCE WARFARIN, 1 dose, On Sat05/28/08 at 1800 $ Given 05/28/2008 6:10 PM ACCESS REP 5 mg warfarin (COUMADIN) tablet 7.5 mg 7.5 mg, Oral, ONCE WARFARIN, 1 dose, On 05/29/08 at 1845 $ Given 05/29/2008 6:52 PM ACCESS REP 7.5 mg warfarin (COUMADIN) tablet 7.5 mg 7.5 mg, Oral, ONCE WARFARIN, 1 dose, On Sat05/30/08 at 1900 $ Given 05/30/2008 7:02 PM ACCESS REP 7.5 mg documented in this encounter Active and Recently Administered Medications Times are shown in ACCESS REP. Scheduled Medication Order 05/29/2008 05/30/2008 05/31/2008 docusate sodium (COLACE) capsule 100 mg (CANCELED) 100 mg, Oral, 2 TIMES DAILY, First dose on Sat05/28/08 at 2100, Until Discontinued, Hold for frequent stools 0812 ($ Given - Provider: Jesika Perez)2120 ($ Given - Provider: Dora Ontiveros RN) 0941 ($ Given - Provider: Stephanie Bonilla RN)2109 ($ Given - Provider: Dora Ontiveros RN) 0812 ($ Given - Provider: Carla Aden TESHA) enoxaparin (LOVENOX) injection 30 mg 30 mg, Subcutaneous, EVERY 12 HOURS, First dose on 05/29/08 at 0900, Until Discontinued, (for prefilled syringes) do not expel air bubble from the syringe prior to the injection Dc when inr is 2.0 0812 ($ Given - Provider: Jesika Perez)2120 ($ Given - Provider: Dora Ontiveros, TESHA) 0942 ($ Given - Provider: Stephanie Bonilla RN)2109 ($ Given - Provider: Dora Ontiveros, TESHA) 0812 ($ Given - Provider: Carla Aden, TESHA) felodipine CR 24hr (PLENDIL) tablet 5 mg (CANCELED) 5 mg, Oral, DAILY, First dose on 05/29/08 at 1430, Until Discontinued, Do not crush, chew, or cut in half. 1715 ($ Given - Provider: Jesika Perez) 0900 (Held - Provider: Stephanie Bonilla RN) 0812 ($ Given - Provider: Carla Aden, TESHA) metoprolol succinate XL 24hr (TOPROL XL) tablet 100 mg 100 mg, Oral, 2 TIMES DAILY, First dose on 05/29/08 at 2100, Until Discontinued, May cut in half but do not crush or chew 2120 ($ Given - Provider: Dora Ontiveros RN) 0900 (Held - Provider: Stephnaie Bonilla RN)2107 ($ Given - Provider: Dora Ontiveros, TESHA) 0812 ($ Given - Provider: Carla Aden, TESHA) warfarin (COUMADIN) tablet 7.5 mg (COMPLETED) 7.5 mg, Oral, ONCE WARFARIN, 1 dose, On 05/29/08 at 1845 1852 ($ Given - Provider: Jesika Perez - Comment: not in pyxis) warfarin (COUMADIN) tablet 7.5 mg (COMPLETED) 7.5 mg, Oral, ONCE WARFARIN, 1 dose, On 05/30/08 at 1900 1902 ($ Given - Provider: Stephanie Bonilla RN) Continuous Medication Order 05/29/2008 05/30/2008 05/31/2008 dextrose 5 % and 0.45% nacl infusion (CANCELED) at 75 mL/hr, Intravenous, CONTINUOUS, Starting on Sat05/28/08 at 1415, Until Sat05/31/08 at 2222 0748 (Stopped - Provider: Jesika Perez)0748 ($ New Bag/Syringe - Provider: Jesika Perez)2119 ($ New Bag/Syringe - Provider: Dora Ontiveros RN) morphine 1 mg/ml LICENSED NUCLEAR OPERATOR (CANCELED) Intravenous, LICENSED NUCLEAR OPERATOR, Until Sat05/31/08 at 2222, ................. - LICENSED NUCLEAR OPERATOR Dose: 0.8mg dose with 12 min lockout ( 4 mg/hr) - Contact physician if respiratory rate falls below 10/minute. If respiratory rate < 7/min administer naloxone (Narcan) 0.2 mg IV STAT, begin oxygen at 4-10 LPM, STOP LICENSED NUCLEAR OPERATOR immediately, and contact physician. 1140 ($ Given - Provider: Jesika Perez) PRN Medication Order 05/29/2008 05/30/2008 05/31/2008 hydrocodone-acetaminop hen (NORCO) 5-325 MG tablet 1 Tab (CANCELED) 1 tablet, Oral, EVERY 6 HOURS PRN, Pain, Starting on Sat05/29/08 at 1431, Until Sat05/31/08 at 2222 1707 ($ Given - Provider: Lora Garcia RN) ondansetron (ZOFRAN) injection 4 mg (CANCELED) 4 mg, Intravenous, EVERY 4 HOURS PRN, Nausea/Vomiting, Starting on Sat05/28/08 at 1646, Until Sat05/31/08 at 2222 1744 ($ Given - Provider: Lora Garcia RN) oxycodone-acetaminophe n (PERCOCET) 5-325 MG tablet 1 Tab 1 tablet, Oral, EVERY 4 HOURS PRN, Pain, Starting on Sat05/28/08 at 1644, Until Sat05/31/08 at 2222 0406 ($ Given - Provider: Claudia Pollock RN)0812 ($ Given - Provider: Jesika Perez) 1055 ($ Given - Provider: Stephanie Bonilla RN) oxycodone-acetaminophe n (PERCOCET) 7.5-325 MG tablet 1 Tab (CANCELED) 1 tablet, Oral, EVERY 4 HOURS PRN, Pain, Starting on Sat05/28/08 at 1646, Until 05/31/08 at 2222 1431 ($ Given - Provider: Jesika Perez)1844 ($ Given - Provider: Jesika Perez) 210 ($ Given - Provider: Dora Ontiveros RN) 0816 ($ Given - Provider: Carla Aden RN) temazepam (RESTORIL) capsule 15 mg (CANCELED) 15 mg, Oral, AT BEDTIME PRN, Insomnia, Starting on Sat05/28/08 at 1647, Until 05/31/08 at 2222 2120 ($ Given - Provider: Dora Ontiveros RN) 210 ($ Given - Provider: Dora Ontiveros RN) documented in this encounter Additional Health Concerns Infection Onset Date Last Indicated Resolved Time MRSA 01/23/2008 01/23/2008 03/16/2021 8:30 AM ACCESS REP documented as of this encounter Care Teams Body Shop Floorperson Relationship Specialty Start Date End Date Carlos Dougherty MD [address] [place] [id number] PCP - General 10/10/07 10/14/12 documented as of this encounter
--- OUTSIDE RECORDS SUMMARY | 2024-05-11 12:08 | XMS_ITS | Encounter Summary ---
Author Organization [facility] Address [address] [place] [address] Care Team Providers Care Marketing Support Specialist Name Role Phone Carlos Dougherty MD Primary Care Provider [phone] Reason for Visit * Reason Onset Date Comments General 12/29/2007 Encounter Details Date Type Department Care Team (Late st Contact Info) Description 12/26/2007 Telephone [facility] - Internal Medicine [address] [place] [phone] Carlos Dougherty MD [address] [place] [phone] General Social History Tobacco Use Types Packs/Day Years [...] Telephone Encounter - Carlos Dougherty MD - 12/26/2007 5:20 PM CDT Message reviewed and agree with plan. * Telephone Encounter - Angelsavanna Jaky - 12/26/2007 4:53 PM CDT Patient called today. Problem at work for missed dates of 12/06-08/11. Needs note stating was unable to work due to illness. Ov here 12/15/07. Note faxed to employer for same. documented in this encounter Plan of Treatment Not on file documented as of this encounter Visit Diagnoses Not on filedocumented in this encounter Care Teams Marketing Support Specialist Relationship Specialty Start Date End Date Carlos Dougherty MD [address] [place] [id number] PCP - General 10/10/07 10/14/12 documented as of this encounter
--- OUTSIDE RECORDS SUMMARY | 2024-05-11 12:08 | XMS_ITS | Encounter Summary ---
Author Organization [facility] Address [address] [place] [address] Care Team Providers Care Senior Electrical Estimator Name Role Phone Carlos Dougherty MD Primary Care Provider [phone] Encounter Details Date Type Department Care Team (Latest Contact Info) Description 10/10/2007 12:46 PM CDT - 10/10/2007 11:59 PM CDT Hospital Encounter [facility] [address] [place] [address] Carlos Dougherty MD [address] [facility] [address] [place] [address] Radiology Diagnostic Discharge Disposition: Home or Self Care Social History Tobacco Use Types Packs/Day Years Used Date Smoking Tobacco: Never Assessed Sex and Gender Information Value Date Recorded Sex Assigned at Not on file Gender Identity Not on file Sexual Orientation Not on file documented as of this encounter Plan of Treatment Scheduled Orders Name Type Priority Associated Diagnoses Orde r Schedule XR CHEST PA AND LATERAL Imaging Routine ONCE for 1 Occur rences starting 10/10/2007 until 10/10/2007, 1 completed XR HAND 3+ VW LEFT Imaging Routine ONCE f or 1 Occurrences starting 10/10/2007 until 10/10/2007, 1 completed documented as of this encounter Procedures Procedure Name Priority Date/Time Associated Diagnosis Comments XR HAND LEFT 3VW OR MORE Routine 10/10/2007 1:00 PM CDT Joint Pain-Hand XR CHEST 2VW Routine 10/10/2007 12:50 PM CDT Abn Findings-Lung Field documented in this encounter Results * XR HAND 3+ VW LEFT (10/10/2007 [...] osseous abnormalities or degenerative changes. ? Reading Radiologist- HARIKA ROA MD ? Releasing Ricardo ROA MD ? Released Date Time- 10/10/07 1425 ? Vinyl Installer- BULL ? ADM- CARLOS DOUGHERTY A ? ATT- CARLOS DOUGHERTY A REF- CARLOS DOUGHERTY A ? CON- PCP- CARLOS DOUGHERTY A ? SCP- Procedure Note Harika Roa MD - 10/10/2007 Left hand HISTORY- Wrist pain Three views of the left hand were obtained which demonstrate a mild ulnar negative variant. No additional osseous abnormalities are noted. IMPRESSION- Mild ulnar negative variance. No acute osseous abnormalities or degenerative changes. Reading Radiologist- HARIKA ROA MD Releasing RadiologistSulma ROA MD Released Date Time- 10/10/07 1425 Edel- DEMETRICE CARLOS LÓPEZ THOMAS A REF- CARLOS DOUGHERTY CON- PCP- CARLOS DOUGHERTY SCP- Carlos Dougherty MD DIAGNOSTIC IMAGING O RDERABLES * XR CHEST PA AND LATERAL (10/10/2007 12:50 PM CDT) Anatomical Region Laterality Modality Chest Other 10/10/2007 12:5 0 PM CDT Narrative 10/10/2007 2:24 PM CDT PA AND LATERAL CHEST- HISTORY- Cough. Smoker. PA and lateral chest dated October 10, 2007 is compared with May 15, 2007. The cardiomediastinal silhouette is normal. Pulmonary vascularity is normal and the lungs are clear. IMPRESSION- NO ACTIVE DISEASE. ? Reading RadiologistSulma ROA MD ? Releasing RadiologistSulma ROA MD ? Released Date Time- 10/10/07 1424 ? Colin GOTTLIEB ? CARLOS LÓPEZ ? CARLOS MONTGOMERY REFCARLOS GUERRA ? CON- PCP- CARLOS DOUGHERTY ? SCP- Procedure Note Harika Roa MD - 10/10/2007 PA AND LATERAL CHEST- HISTORY- Cough. Smoker. PA and lateral chest dated October 10, 2007 is compared with May 15, 2007. The cardiomediastinal silhouette is normal. Pulmonary vascularity is normal and the lungs are clear. IMPRESSION- NO ACTIVE DISEASE. Reading Radiologist- HARIKA ROA MD Releasing Radiologist- HARIKA ROA MD Released Date Time- 10/10/07 1424 Vinyl Installer- KGM ADM- CARLOS DOUGHERTY ATTCARLOS GUERRA REFCARLOS GUERRA CON- PCP- CARLOS DOUGHERTY SCP- Carlos Dougherty MD DIAGNOSTIC IMAGING O RDERABLES documented in this encounter Visit Diagnoses Diagnosis Nonspecific (abnormal) findings on radiological and other examination of lung field Joint pain-hand Pain in joint, hand documented in this encounter Care Teams Senior Electrical Estimator Relationship Specialty Start Date End Date Carlos Dougherty MD [address] [place] [id number] PCP - General 10/10/07 10/14/12 documented as of this encounter
--- OUTSIDE RECORDS SUMMARY | 2024-05-11 12:08 | XMS_ITS | Encounter Summary ---
Author Organization [facility] Address [address] [facility] [place] [address] Care Team Providers Care Carpet Cleaner Name Role Phone Carlos Dougherty MD Primary Care Provider Reason for Visit * Reason Comments Bladder infection Encounter Details Date Type Department Care Team (Late st Contact Info) Description 02/10/2008 9:30 AM CDT Office Visit [facility] Medical [facility] - Internal Medicine [address] [place] [phone] William Alcala, SENIOR GAME DEVELOPER-PICK PULLING MACHINE OPERATOR [address] [place] [address] Dysuria (Primary Dx); Flu (Influenza Vaccination); Psoriasis Social History Tobacco Use Types Packs/Day Years [...] Sign Reading Time Taken Comments Blood Pressure 140/80 02/10/2008 9:45 AM CDT Pulse 78 02/10/2008 9:45 AM CDT Temperature 36.6 ??C (97.8 ??F) 02/10/2008 9:45 AM CD T Respiratory Rate - - Oxygen Saturation - - Inhaled Oxygen Concentration - - Weight - - Height 172.7 cm (5' 8 ) 02/10/2008 9:45 AM CDT Body Mass Index - - documented in this encounter Progress Notes * William Alcala APRN - 02/10/2008 10:23 AM CDT Pt req work note and note indicating she rec'd flu shot today * William Alcala APRN - 02/10/2008 9:58 AM CDT SUBJECTIVE: Karolina Ramos is a 52 y.o. 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 Pt unsure ?99-100? , chills, or abnormal vaginal discharge or bleeding. Review of Systems - neg except as noted in HPI OBJECTIVE: Appears well, in no apparent distress. Vital signs are normal. The abdomen is soft without tenderness, guarding, mass, rebound or organomegaly. No CVA tenderness or inguinal adenopathy noted. Urine dipstick shows SEE BELOW, NEGATIVE. ASSESSMENT: UTI? ?cystitis? uncomplicated without evidence of pyelonephritis SEPTRA ds BID X 3 DAYS WITH PYRIDIUM - CALL IF SYMPTOMS PERSIST (note pt has underlying chronic disease RA and is on Humira) Works in [employer] and has chronic RA - flu shot today Pt req rx for shampoo and spray forms of clobetasol Results for orders placed on 02/10/2008 URINALYSIS - POINT OF CARE Component Value Range ??? Clarity UA clear - ??? Color UA yellow - ??? Leukocyte UA neg Negative- ??? Nitrite UA neg Negative- ??? Urobilinogen UA neg 0.1-1.0 (EU/dL) ??? Protein UA neg Negative- ??? pH UA 7.0 5.0-8.0 (pH units) ??? Blood UA neg Negative- ??? Specific [place] UA 1000 (*) 1.002-1.030 ??? Ketone UA neg Negative- ??? Bili UA neg Negative- ??? Glucose UA neg Negative- documented in this encounter Plan of Treatment Not on file documented as of this encounter Procedures Procedure Name Priority Date/Time Associated Diagnosis Comments URINALYSIS - POINT OF CARE Routine 02/10/2008 10:05 AM CDT documented in this encounter Results * (ABNORMAL) URINALYSIS - POINT OF CARE (02/10/2008 10:05 AM CDT) Clarity UA POCT clear Color UA POCT yellow Leukocyte UA neg Negative Nitrite UA POCT neg Negative Urobilinogen UA POCT neg 0.1 - 1.0 EU/dL Protein UA POCT neg Negative pH UA 7.0 5.0 - 8.0 pH units Blood UA neg Negative Specific [place] UA POCT 1000(A) 1.002 - 1.030 Ketone UA neg Negative Bilirubin UA POCT neg Negative Glucose UA neg Negative Urine specimen (specimen) URINE / Unknown William Alcala APRN-PICK PULLING MACHINE OPERATOR LAB - POINT O F CARE ORDERABLES documented in this encounter Visit Diagnoses Diagnosis Dysuria- Primary Flu (influenza vaccination) Need for prophylactic vaccination and inoculation against influenza Psoriasis Other psoriasis documented in this encounter Additional Health Concerns Infection Onset Date Last Indicated Resolved Time MRSA 01/23/2008 01/23/2008 03/16/2021 8:30 AM SPORTS STATISTICIAN documented as of this encounter Care Teams Carpet Cleaner Relationship Specialty Start Date End Date Carlos Dougherty MD [address] [place] [id number] PCP - General 10/10/07 10/14/12 documented as of this encounter
--- OUTSIDE RECORDS SUMMARY | 2024-05-11 12:08 | XMS_ITS | Encounter Summary ---
Author Organization [facility] Address [address] [facility] [place] [address] Care Team Providers Care Locomotive Mechanic Name Role Phone Carlos Dougherty MD Primary Care Provider [phone] Reason for Visit * Reason Onset Date Comments Vomiting 12/11/2007 Encounter Details Date Type Department Care Team (Late st Contact Info) Description 12/11/2007 Telephone [facility] Medical [facility] - Internal Medicine [address] [place] [phone] Carlos Dougherty MD [address] [place] [phone] Vomiting Social History Tobacco Use Types Packs/Day Years Used Date Smoking Tobacco: Never Assessed Sex and Gender Information Value Date Recorded Sex Assigned at Not on file Gender Identity Not on file Sexual Orientation Not on file documented as of this encounter Miscellaneous Notes * Telephone Encounter - Chrystal Cummings - 12/11/2007 1:09 PM CDT Images from the original note were not included. PT calling with vomiting and not feeling well x 1 week out of town OV scheduled for Saturday documented in this encounter Plan of Treatment Not on file documented as of this encounter Visit Diagnoses Not on filedocumented in this encounter Care Teams Locomotive Mechanic Relationship Specialty Start Date End Date Carlos Dougherty MD [address] [place] [id number] PCP - General 10/10/07 10/14/12 documented as of this encounter
--- OUTSIDE RECORDS SUMMARY | 2024-05-11 12:08 | XMS_ITS | Encounter Summary ---
Author Organization [facility] Address [address] [facility] [place] [address] Care Team Providers Care Roof Plumber Name Role Phone Carlos Dougherty MD Primary Care Provider Reason for Visit * Reason Onset Date Comments Forms 06/09/2008 Encounter Details Date Type Department Care Team (Late st Contact Info) Description 06/09/2008 Telephone [facility] - Internal Medicine [address] [place] [address] Carlos Dougherty MD [address] [place] [address] Forms Social History Tobacco Use Types Packs/Day Years [...] encounter Miscellaneous Notes * Telephone Encounter - Willow Molina - 06/09/2008 10:47 AM CST Form completed and mailed to pt. STANT PRESS OPERATOR * Telephone Encounter - Carlos Dougherty MD - 06/09/2008 9:43 AM CST OK STANT PRESS OPERATOR * Telephone Encounter - Willow Molina - 06/09/2008 9:21 AM CST Pt calling for a 3 mo extension on disability tags, was given 3 mo temp tag in March for knee surgery in April. Had complications with knee surgery and had to be revised about 10 days ago (kneekept coming out of place and had to be surgically revised). Lives in [place] - without handicapped tag has to walk two blocks just to get to her house. Mail form to pt. Form on your desk. STANT PRESS OPERATOR documented in this encounter Plan of Treatment Not on file documented as of this encounter Visit Diagnoses Not on filedocumented in this encounter Additional Health Concerns Infection Onset Date Last Indicated Resolved Time MRSA 01/23/2008 01/23/2008 03/16/2021 8:30 AM ASSISTANT PRESS OPERATOR documented as of this encounter Care Teams Roof Plumber Relationship Specialty Start Date End Date Carlos Dougherty MD [address] [place] [address] PCP - General 10/10/07 10/14/12 documented as of this encounter
--- OUTSIDE RECORDS SUMMARY | 2024-05-11 12:08 | XMS_ITS | Encounter Summary ---
Author Organization [facility] Address [address] [facility] [place] [address] Care Team Providers Care Damper Fitter Name Role Phone Carlos Dougherty MD Primary Care Provider Reason for Visit * Reason Onset Date Comments MEDICATION REFILL 04/19/2008 Encounter Details Date Type Department Care Team (Late st Contact Info) Description 04/19/[address] 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
--- OUTSIDE RECORDS SUMMARY | 2024-05-11 12:08 | XMS_ITS | Encounter Summary ---
Author Organization [facility] Address [address] [facility] [place] [address] Care Team Providers Care Senior Insight Manager Name Role Phone Carlos Dougherty MD Primary Care Provider [phone] Encounter Details Date Type Department Care Team (Late st Contact Info) Description 02/10/2003 Orders Only [facility] [address] [place], [place] [id number] ProviderLorraine MD Social History Tobacco Use Types Packs/Day Years Used Date Smoking Tobacco: Never Assessed Sex and Gender Information Value Date Recorded Sex Assigned at Not on file Gender Identity Not on file Sexual Orientation Not on file documented as of this encounter Plan of Treatment Not on file documented as of this encounter Procedures Procedure Name Priority Date/Time Associated Diagnosis Comments GROSS + MICRO EXAM [facility] 12/01/2003 10 :50 AM CDT GROSS + MICRO EXAM [facility] 02/10/2003 1: 40 PM CDT documented in this encounter Results * GROSS + MICRO EXAM (12/01/2003 10:50 AM CDT) Result CASE NUMBER [id number] Comment: ORDERING PHYSICIAN ??MIKAEL PELLETIER SPECIMEN TYPE ?Ovaries/Tubes mildred ?THIS IS A CORRECTED REPORT ?? FOR PREVIOUSLY REPORTED VALUES, [facility] [place] [facility] Preop Dx ? Complex adnexal mass with increase in symptomatology. Postop Dx ?Same Clinical Findings ?As above. GROSS DESCRIPTION ? There are two containers of Histochoice. The first container is labeled right and left ??ovary and tube consists of a fusiform dilated fallopian tube 9.5 cm maximum. Also present is a 4.5 cm smooth cyst and a 2 cm ovary. ??Cut section shows no significant focal abnormality. Fibrous adhesions and adipose tissue are present. Intraoperative OR consultation with gross examination is reported grossly normal ovaries with adhesions, dilated benign adhesed tubes by Dr. Torres. Sections are submitted. The second container is labeled nodule and consists of a lobulated lobo/sparks tissue fragment 2.5 x 2.2 x 1.8 cm. ??Cut section shows whorled lobo/white tissue. ??Intraoperative OR consultation with microscopic (FS) examination is reported benign spindle cell nodule, probably leiomyoma by Dr. Torres. ?? Sections are submitted. ([facility])lmq BLOCKS ?A-D ?? - Complex adnexal mass ?E-F ?? - Nodule (E contains notched FS remnant) Grossed by ? Dileep Middleton M.D. MICROSCOPIC EXAMINATION ? Microscopic examination performed. (etm) lmq DIAGNOSIS ? Right and left ovaries and fallopian tube, BSO ?Hemorrhagic follicle cysts ?Dilated fallopian tube Anatomic site not specified, excision ?Leiomyoma Read by ?Becky T. Rodo, M.D. Released By ?BECKY SERNA MISCELLANEOUS SAMPLES / Unknown 12/01/2003 10:50 AM CDT 12/01/2003 10:50 AM CDT Historical Provider LAB - PATHOLOGY/C YTOLOGY ORDERABLES * GROSS + MICRO EXAM (02/10/2003 1:40 PM CDT) Result CASE NUMBER [id number] Comment: ORDERING PHYSICIAN ??YEISON HOWELL SPECIMEN TYPE ?Skin-abdomen Date ? 02/11/2003 Physician ?Benjamin Gross Description ? Received in a formalin-filled container, labeled `abdomen nodule' and consists of an ellipse of pale skin measuring 1.2 x .7 x .3 cm. ??The superficial surface of skin has a diffuse central area of depression of the same color. ??It is serially sectioned and entirely submitted as follows ??A-two tips, B-rest of specimen. ?? TK/juanitoc 02/11/03 Microscopic Exam ? Sections labeled A and B reveal cutaneous tissue fragments. ??The epidermis is unremarkable. ??The tips are unremarkable. ?? Section labeled B reveals within the dermis an irregular, ill-defined nodular lesion consisting of fibrohistiocytic nature. ??The lesion extends into the subcutaneous tissue and laterally to the excisional margins. ??The deep margin is free. ?? SR/bk Diagnosis ?I. ??Cutaneous tissue, abdomen, nodule, excision ?A. ??Fibrous histiocytoma. ?B. ??Lesion extends to the lateral margins of excision. NOTE ??Even though the lesion is benign, because of incomplete excision, local recurrences are possible. ??Followup is indicated. SR/kimani Life Management Teacher ? kimani Pathologist ?Cassie Merrill M.D. [place]. ?02/12/2003 1052 <1> CPT code ? 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
--- OUTSIDE RECORDS SUMMARY | 2024-05-11 12:08 | XMS_ITS | Encounter Summary ---
Author Organization [facility] Address [address] [place] [address] Care Team Providers Care National Accounts Recruiter Name Role Phone Carlos Dougherty MD Primary Care Provider [phone] Encounter Details Date Type Department Care Team (Late st Contact Info) Description 12/18/2007 Orders Only [facility] - Internal Medicine [address] [place] [address] Carlos Dougherty MD [address] [place] [address] Nausea Alone Social History Tobacco Use Types Packs/Day Years [...] as of this encounter Visit Diagnoses Diagnosis Nausea alone- Primary documented in this encounter Care Teams National Accounts Recruiter Relationship Specialty Start Date End Date Carlos Dougherty MD [address] [place] [phone] PCP - General 10/10/07 10/14/12 documented as of this encounter
--- OUTSIDE RECORDS SUMMARY | 2024-05-11 12:08 | XMS_ITS | Encounter Summary ---
Author Organization [facility] Address [address] [facility] [place] [address] Care Team Providers Care Verification Specialist Name Role Phone Carlos Dougherty MD Primary Care Provider Reason for Visit * Reason Onset Date Comments Medication Request 03/08/2008 Encounter Details Date Type Department Care Team (Late st Contact Info) Description 03/08/2008 Telephone [facility] - Internal Medicine [address] [place] [address] Carlos Dougherty MD [address] [place] [address] Medication Request Social History Tobacco Use Types Packs/Day Years [...] * Telephone Encounter - Willow Molina - 03/10/2008 12:20 PM CST Rx called in to [facility] [phone] CORRECTIONS * Telephone Encounter - Carlos Dougherty MD - 03/10/2008 12:03 PM CST Yes. 30 mg #30 R6 CORRECTIONS * Telephone Encounter - Willow Molina - 03/10/2008 11:25 AM CST Pt agreeable to try Prevacid in place of Nexium. Can you rx this for pt? CORRECTIONS * Telephone Encounter - Willow Molina - 03/10/2008 11:19 AM CST Lmcb to discuss issue with nexium with pt CORRECTIONS * Telephone Encounter - Willow Molina - 03/09/2008 11:17 AM CST Nexium not covered by pt's insurance, either needs Prevacid or Omeprazole, or call for Prior Auth #[id number] Pt's ID # [id number] CORRECTIONS * Telephone Encounter - Willow Molina - 03/08/2008 4:52 PM CST LMCB re handicapped tag, rx sent to pharmacy. CORRECTIONS * Telephone Encounter - Carlos Dougherty MD - 03/08/2008 1:11 PM CST OK for Nexium 40 mg po daily #30 R3 OK for handicapped tag if meets guidelines CORRECTIONS * Telephone Encounter - Willow Molina - 03/08/2008 11:10 AM CST 1) Pt complains of hoarseness starting since , no other sx. Had this problem about 3-4 years ago, was sent to ENT and was put on Nexium 40 mg daily. Pt took med for 2 years then she stopped it on her own. Pt feels the hoarseness is related to GERD, is also having heartburn, and pt wants to go back on Nexium. Send rx to her pharmacy. 2) Pt also wants to know if you will complete a temporary disability tag until she can get R total knee surgery done. Pt trying to hold off on surgery for about 6 months - needs to save up to supportherself while she is recovering from surgery. Let pt know decision. CORRECTIONS documented in this encounter Plan of Treatment Not on file documented as of this encounter Visit Diagnoses Not on filedocumented in this encounter Additional Health Concerns Infection Onset Date Last Indicated Resolved Time MRSA 01/23/2008 01/23/2008 03/16/2021 8:30 AM RN CORRECTIONS documented as of this encounter Care Teams Verification Specialist Relationship Specialty Start Date End Date Carlos Dougherty MD [address] [place] [address] PCP - General 10/10/07 10/14/12 documented as of this encounter
--- OUTSIDE RECORDS SUMMARY | 2024-05-11 12:08 | XMS_ITS | Encounter Summary ---
Author Organization [facility] Address [address] [facility] [place] [address] Care Team Providers Care Miller Head Assistant Wet Process Name Role Phone Carlos Dougherty MD Primary Care Provider [phone] Encounter Details Date Type Department Care Team (Late st Contact Info) Description 10/10/2007 Orders Only [facility] - Internal Medicine [address] [place] [address] Carlos Dougherty MD [address] [place] [address] Social History Tobacco Use Types Packs/Day Years Used Date Smoking Tobacco: Never Assessed Sex and Gender Information Value Date Recorded Sex Assigned at Not on file Gender Identity Not on file Sexual Orientation Not on file documented as of this encounter Plan of Treatment Not on file documented as of this encounter Procedures Procedure Name Priority Date/Time Associated Diagnosis Comments HEMOGLOBIN A1C 10/10/2007 12:19 PM CDT COMPREHENSIVE METABOLIC PANEL 10/10/2007 12:19 PM CDT LIPID PROFILE 10/10/2007 12:19 PM CDT documented in this encounter Results * (ABNORMAL) HEMOGLOBIN A1C (10/10/2007 12:19 PM CDT) Hemoglobin A1c 7.3(H) <7.0 % [facility] INSURANCE BILL Comment: ?Please note reference interval change ? . ?Diabetic Adult ?<7.0 ?Healthy Adult ?4.8 - 5.9 ?(DCCT/NGSP) ?[place] [employer]'s Summary of Glycemic ?Recommendations for Adults with Diabetes: ?Hemoglobin A1c <7.0%. More stringent glycemic goals ?(A1c <6.0%) may further reduce complications at the ?cost of increased risk of hypoglycemia. 10/10/2007 12:1 9 PM CDT 10/10/2007 8:08 PM CDT Narrative Resulting Agency Comment [facility] [place] [address] ??[place] [id number] Carlos Dougherty MD LAB - CHEMISTRY MIMI LOTT [facility] INSURANCE BILL * (ABNORMAL) LIPID PROFILE (10/10/2007 12:19 PM [...] PM CDT Narrative Resulting Agency Comment [facility] [address] ??[facility] [phone] Carlos Dougherty MD LAB - CHEMISTRY MIMI LOTT [facility] INSURANCE BILL * (ABNORMAL) COMPREHENSIVE METABOLIC PANEL (10/10/2007 12:19 PM CDT) Glucose 114(H) 65 - 99 mg/dL [facility] INSURANCE BILL BUN 11 5 - 26 mg/dL [facility] INSURANCE BILL Creatinine 0.70 0.50 - 1.50 mg/dL [facility] INSURANCE BILL eGFR by MDRD >60 60 - 128 mL/min [facility] INSURANCE BILL eGFR by MDRD >60 60 - 128 mL/min [facility] INSURANCE BILL Comment: Note: ??Persistent reduction for 3 months or more in an eGFR <60 mL/min/1.73 m2 defines CKD. ??Patients with eGFR values >/=60 mL/min/1.73 m2 may also have CKD if evidence of persistent proteinuria is present. ? . Additional information may be found at [email or web address].org. BUN/Creatinine Ratio 16 8 - 27 [facility] INSURANCE BILL Sodium 139 135 - 145 mmol/L [facility] INSURANCE BILL Potassium 4.6 3.5 - 5.2 mmol/L [facility] INSURANCE BILL Chloride 103 97 - 108 mmol/L [facility] INSURANCE BILL CO2 24 20 - 32 mmol/L [facility] INSURANCE BILL Calcium 9.7 8.5 - 10.6 mg/dL [facility] INSURANCE BILL Protein Total 7.5 6.0 - 8.5 g/dL [facility] INSURANCE BILL Albumin 3.8 3.5 - 5.5 g/dL [facility] INSURANCE BILL Globulin Total 3.7 1.5 - 4.5 g/dL [facility] INSURANCE BILL Albumin/Globulin Ratio 1.0(L) 1.1 - 2.5 [facility] INSURANCE BILL Bilirubin Total 0.3 0.1 - 1.2 mg/dL [facility] INSURANCE BILL Alkaline Phosphatase 120 25 - 150 IU/L [facility] INSURANCE BILL AST 26 0 - 40 IU/L [facility] INSURANCE BILL ALT 35 0 - 40 IU/L [facility] INSURANCE BILL 10/10/2007 12:1 9 PM CDT 10/10/2007 8:08 PM CDT Narrative Resulting Agency Comment [facility] [address] ??[facility] [phone] Carlos Dougherty MD LAB - CHEMISTRY MIMI LOTT [facility] INSURANCE BILL documented in this encounter Visit Diagnoses Not on filedocumented in this encounter Care Teams Miller Head Assistant Wet Process Relationship Specialty [place] [address] [place] [address] PCP - General 10/10/07 10/14/12 documented as of this encounter
--- OUTSIDE RECORDS SUMMARY | 2024-05-11 12:08 | XMS_ITS | Encounter Summary ---
Author Organization [facility] Address [address] [facility] [place] [address] Care Team Providers Care Slate Cutter Name Role Phone Carlos Dougherty MD Primary Care Provider [phone] Reason for Visit * Reason Onset Date Comments Urinary Retention 02/10/2008 Encounter Details Date Type Department Care Team (Late st Contact Info) Description 02/10/2008 Telephone [facility] - Internal Medicine [address] [place] [address] Carlos Dougherty MD [address] [place] [address] Urinary Retention Social History Tobacco Use Types Packs/Day Years [...] Telephone Encounter - Carlos Dougherty MD - 02/10/2008 9:42 AM CDT Cipro 500 mg po bid #10 * Telephone Encounter - Inderjit Carrollon - 02/10/2008 8:40 AM CDT Really bad UTI. Fever (100.2), burning, low back pain, foul odor since yesterday. 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
--- OUTSIDE RECORDS SUMMARY | 2024-05-11 12:08 | XMS_ITS | Encounter Summary ---
Author Organization [facility] Address [address] [place] [address] Care Team Providers Care Company Laborer Name Role Phone Carlos Dougherty MD Primary Care Provider [phone] Encounter Details Date Type Department Care Team (Latest Contact Info) Description 07/13/2009 6:04 PM HEAD OF MATHEMATICS - 07/13/2009 11:59 PM [facility] Hospital Encounter [facility] Sleep Services [address] [place] [address] Carlos Lewis MD [address] [place] [address] Respiratory Therapy Discharge Disposition: Home or Self Care Social [...] 05/31/2008 10/18/2014 documented as of this encounter Miscellaneous Notes * Miscellaneous Scans - Document, Scanned - 07/13/2009 12:00 AM HEAD OF MATHEMATICS * Miscellaneous Scans - Document, Scanned - 07/13/2009 12:00 AM HEAD OF MATHEMATICS * Miscellaneous Scans - Document, Scanned - 07/13/2009 12:00 AM HEAD OF MATHEMATICS documented in this encounter Plan of Treatment Not on file documented as of this encounter Visit Diagnoses Not on filedocumented in this encounter Additional Health Concerns Infection Onset Date Last Indicated Resolved Time MRSA 01/23/2008 01/23/2008 03/16/2021 8:30 AM HEAD OF MATHEMATICS documented as of this encounter Care Teams Company Laborer Relationship Specialty Start Date End Date Carlos Dougherty MD [id number] [address] PCP - General 10/10/07 10/14/12 documented as of this encounter
--- OUTSIDE RECORDS SUMMARY | 2024-05-11 12:08 | XMS_ITS | Encounter Summary ---
Author Organization [facility] Address [address] [place] [address] Care Team Providers Care Military Professional Name Role Phone Carlos Dougherty MD Primary Care Provider [phone] Encounter Details Date Type Department Care Team (Latest Contact Info) Description 07/26/2009 12:01 AM CDT - 07/26/2009 11:59 PM T Hospital Encounter [facility] Sleep Services [address] [place] [address] Carlos Naik MD [address] [place] [address] Respiratory Therapy Discharge Disposition: Home or Self [...] 05/31/2008 10/18/2014 documented as of this encounter Procedure Notes * Carlos Naik MD - 08/03/2009 8:28 AM CDTAssociated Order(s): POLYSOMNOGRAPHY [facility] ACCREDITED BY THE [employer] [employer] [place] [employer] OF SLEEP MEDICINE POLYSOMNOGRAPHY PATIENT NAME: AHSAN RAMOS MR#: [id number] ROOM#: SEX: F REFERRING PHYSICIAN: CARLOS NAIK M.D.: 1955 DATE OF TEST: 07/26/09 STUDY NIGHT: 2 HEIGHT: 172.7 cm BODY MASS INDEX: 51.7 kg/m2 WEIGHT: 154.2 kg INDICATION FOR STUDY: THE PATIENT IS A 54-YEAR-OLD WHITE FEMALE, WITH PREVIOUSLY DIAGNOSED OBSTRUCTIVE SLEEP APNEA. REPEAT POLYSOMNOGRAPHY WITH CPAP TITRATION IS INDICATED TO DETERMINE OPTIMAL NASAL CPAP PRESSURE FOR TREATMENT OF OBSTRUCTIVE SLEEP APNEA. STUDY RESULTS: CPAP TITRATION WAS CARRIED OUT BY STANDARD PROTOCOL. OVERNIGHT SLEEP STUDY WAS PERFORMED MONITORING LEFT AND RIGHT EOG, SUBMENTAL EMG, INTERCOSTAL EMG, LEFT AND RIGHT ANTERIOR TIBIALIS EMG, FRONTAL, CENTRAL AND OCCIPITAL EEG, ELECTROCARDIOGRAM, CONTINUOUS AIR FLOW MEASUREMENT, CONTINUOUS NASAL PRESSURE TRANSDUCER, OVERNIGHT AUDIO AND VIDEO, AND SNORING MICROPHONE. HYPOPNEAS SCORED ACCORDING TO AASM RECOMMENDED HYPOPNEA DEFINITION (VIII.4A) PER THE AASM MANUAL FOR THE SCORING OF SLEEP AND ASSOCIATED EVENTS. THE RAW DATA FROM THE POLYSOMNOGRAM WAS REVIEWED. TOTAL RECORDING TIME WAS 390.5 MINUTES, WITH A TOTAL SLEEP TIME OF 299.5 MINUTES. SLEEP EFFICIENCY WAS REDUCED AT 76.7%. SLEEP LATENCY WAS PROLONGED AT 82 MINUTES. REM LATENCY WAS NORMAL AT 69.5 MINUTES. SLEEP STAGING REVEALED 4.9% N1, 51.2% N2, 7.8% N3 AND 36.0% R. THERE WERE 2 REM PERIODS NOTED. THERE WERE 40 STAGE SHIFTS, WITH 9 AWAKENINGS. SLEEP ARCHITECTURE IS ABNORMAL WITH THE REDUCTION IN SLEEP EFFICIENCY. THERE IS ALSO A PROLONGATION OF SLEEP LATENCY. THERE IS A REDUCTION IN SLOW WAVE SLEEP A PERCENTAGE OF TOTAL SLEEP TIME. THE PATIENT WAS STARTED ON NASAL CPAP. NASAL CPAP PRESSURES RANGING FROM 8 CM TO 11 CM H2O PRESSURE WERE INVESTIGATED. OPTIMAL NASAL CPAP PRESSURE APPEARED TO BE 11 CM H2O PRESSURE. AT THIS LEVEL APNEA HYPOPNEA INDEX WAS 0. LOWEST SATURATION WAS 87.0%. BOTH REM [...] WITH NASAL CPAP, 11 CM H2O PRESSURE. 3. PERIODIC LIMB MOVEMENTS DURING SLEEP. THE MAJORITY OF THESE WERE NOT ASSOCIATED WITH AROUSALS. RECOMMENDATIONS: 1. TREATMENT OF OBSTRUCTIVE SLEEP APNEA WITH NASAL CPAP, 11 CM H2O PRESSURE. 2. WOULD SUGGEST CLINICAL FOLLOW-UP OF LEG MOVEMENTS, THE MAJORITY OF THESE WERE NOT ASSOCIATED WITH AROUSALS. CARLOS NAKI M.D. T S:bs - [phone] cc: CARLOS DOUGHERTY M.D. documented in this encounter Miscellaneous Notes * Miscellaneous Scans - Document, Scanned - 07/26/2009 12:00 AM CDT * Miscellaneous Scans - Document, Scanned - 07/26/2009 12:00 AM CDT documented in this encounter Plan of Treatment Scheduled Orders Name Type Priority Associated Diagnoses Orde r Schedule CPAP/BIPAP TITRATION Sleep Center Routine Unspecified Sleep Apnea ONCE for 1 Occurrences starting 07/26/2009 until 07/26/2009 documented as of this encounter Procedures Procedure Name Priority Date/Time Associated Diagnosis Comments POLYSOMNOGRAPHY 4 OR MORE PARAMETERS 08/03/2009 8:28 AM CDT documented in this encounter Results * POLYSOMNOGRAPHY (08/03/2009 8:28 AM CDT) Narrative Procedure Note Carlos Naik MD - 08/03/2009 8:[facility] ACCREDITED BY THE [employer] OF SLEEP MEDICINE POLYSOMNOGRAPHY PATIENT NAME: AHSAN RAMOS MR#: [id number] ROOM#: SEX: F REFERRING PHYSICIAN: CARLOS NAIK M.D.: 1955 DATE OF TEST: 07/26/09 STUDY [...] OF THESE WERE NOT ASSOCIATED WITH AROUSALS. CARLOS NAIK M.D. T S:bs - [phone] cc: CARLOS DOUGHERTY M.D. Carlos Naik MD SLEEP CENTER ORDERAB LES documented in this encounter Visit Diagnoses Diagnosis Unspecified sleep apnea documented in this encounter Administered Medications Inactive Administered Medications - up to 3 most recent administrations Medication Order MAR Action Action Date Dose Rate Site zolpidem (AMBIEN) tablet 5 mg 5 mg, Oral, ONCE, 1 dose, On Sat07/26/09 at 2315 $ Given 07/26/2009 11:27 PM CDT 5 mg documented in this encounter Additional Health Concerns Infection Onset Date Last Indicated Resolved Time MRSA 01/23/2008 01/23/2008 03/16/2021 8:30 AM PLATINUM AND PALLADIUM KETTLE TENDER documented as of this encounter Care Teams Military Professional Relationship Specialty Start Date End Date Carlos Dougherty MD [address] [place] [address] PCP - General 10/10/07 10/14/12 documented as of this encounter
--- OUTSIDE RECORDS SUMMARY | 2024-05-11 12:08 | XMS_ITS | Encounter Summary ---
Author Organization [facility] Address [address] [place] [address] Care Team Providers Care Supervisor [employer] Name Role Phone Carlos Dougherty MD Primary Care Provider [phone] Encounter Details Date Type Department Care Team (Late st Contact Info) Description 12/15/2007 Orders Only [facility] - Internal Medicine [address] [place] [id number] Carlos Dougherty MD [address] [place] [id number] Abdominal Pain, Unspecified Site Social History Tobacco Use Types Packs/Day Years Used Date Smoking Tobacco: Every Day Comments:3 cig/day Alcohol Use Standard Drinks/Week Comments No 0 (1 standard drink = 0.6 oz pur e alcohol) Sex and Gender Information Value Date Recorded Sex Assigned at Not on file Gender Identity Not on file Sexual Orientation Not on file documented as of this encounter Progress Notes * Carlos Dougherty - 12/16/2007 10:49 AM CDTQuick Note: WBC slightly elevated. Consider CT abd/pelvis with/without contrast if still having sx. documented in this encounter Plan of Treatment Not on file documented as of this encounter Procedures Procedure Name Priority Date/Time Associated Diagnosis Comments CBC W AUTO DIFFERENTIAL 12/15/2007 12:42 PM CDT Abdominal Pain, Unspecified Site LIPASE BLOOD 12/15/2007 12:42 PM CDT Abdominal Pain, Unspecified Site documented in this encounter Results * LIPASE BLOOD (12/15/2007 12:42 PM CDT) Lipase 26 0 - 59 U/L [facility] A CCOUNT BILL 12/15/2007 12:4 2 PM CDT 12/15/2007 6:30 PM CDT Narrative Resulting Agency Comment [facility] [address] ??[facility] [phone] Carlos Dougherty MD LAB - CHEMISTRY MIMI LOTT [facility] ACCOUNT BILL * (ABNORMAL) CBC W AUTO DIFFERENTIAL (12/15/2007 12:42 PM CDT) WBC 11.9(H) 4.0 - 10.5 x10E3/uL [facility] ACCOUNT BILL RBC 4.96 3.80 - 5.10 x10E6/uL [facility] ACCOUNT BILL Hemoglobin 14.6 11.5 - 15.0 g/dL [facility] ACCOUNT BILL Hematocrit 44.1(H) 34.0 - 44.0 % [facility] ACCOUNT BILL MCV 89 80 - 98 fL [facility] ACCOUNT BILL MCH 29.5 27.0 - 34.0 pg [facility] ACCOUNT BILL MCHC 33.2 32.0 - 36.0 g/dL [facility] ACCOUNT BILL RDW 15.5(H) 11.7 - 15.0 % [facility] ACCOUNT BILL Platelet Count 223 140 - 415 x10E3/uL [facility] ACCOUNT BILL Granulocytes % 64 40 - 74 % [facility] ACCOUNT BILL Lymphocytes % 26 14 - 46 % [facility] ACCOUNT BILL Monocytes % 8 4 - 13 % [facility] ACCOUNT BILL Eosinophils % 2 0 - 7 % [facility] ACCOUNT BILL Basophils % 0 0 - 3 % [facility] ACCOUNT BILL Granulocytes Absolute 7.6 1.8 - 7.8 x10E3/uL [facility] ACCOUNT BILL Lymphocytes Absolute 3.1 0.7 - 4.5 x10E3/uL [facility] ACCOUNT BILL Monocytes Absolute 1.0 0.1 - 1.0 x10E3/uL [facility] ACCOUNT BILL Eosinophils Absolute 0.2 0.0 - 0.4 x10E3/uL [facility] ACCOUNT BILL Basophils Absolute 0.0 0.0 - 0.2 x10E3/uL [facility] ACCOUNT BILL Comment Hematology NOT AVAIL. [facility] ACCOUNT BILL 12/15/2007 12:4 2 PM CDT 12/15/2007 6:30 PM CDT Narrative [facility] ACCOUNT BILL - 12/16/2007 7:22 AM CDT Additional Result Information HEMATOLOGY COMMENTS: ??BLOOD,URINE ([facility]): RESULT NOT AVAILABLE Resulting Agency Comment [facility] [address] ??[facility] [phone] Carlos Dougherty MD LAB - HEMATOLOGY ORD ERABLES [facility] ACCOUNT BILL documented in this encounter Visit Diagnoses Diagnosis Abdominal pain, unspecified site- Primary documented in this encounter Care Teams Supervisor [employer] Treatment Plant Relationship Specialty Start Date End Date Carlos Dougherty MD [address] [place] [id number] PCP - General 10/10/07 10/14/12 documented as of this encounter
--- OUTSIDE RECORDS SUMMARY | 2024-05-11 12:08 | XMS_ITS | Encounter Summary ---
Author Organization [facility] Address [address] [place] [address] Care Team Providers Care Act English Tutor Name Role Phone Yumiko Dougherty MD Primary Care Provider [phone] Encounter Details Date Type Department Care Team (Latest Contact Info) Description 04/14/2008 12:19 PM BRAND AMBASSADOR - 04/17/2008 12:50 PM BRAND AMBASSADOR Hospital Encounter [address] SURGICAL [address] [place] [id number] Charlotte Chacon MD [address] [place] [address] Orthopedics Discharge Disposition: Home or [...] Sign Reading Time Taken Comments Blood Pressure 105/70 04/17/2008 7:20 AM BRAND AMBASSADOR Pulse 64 04/17/2008 7:20 AM BRAND AMBASSADOR Temperature 36.9 ??C (98.5 ??F) 04/17/2008 7:20 AM CS T Respiratory Rate 20 04/17/2008 7:20 AM BRAND AMBASSADOR Oxygen Saturation 95% 04/14/2008 11:10 AM BRAND AMBASSADOR Inhaled Oxygen Concentration - - Weight 152.9 kg (337 lb) 04/14/2008 6:33 AM BRAND AMBASSADOR Height 172.7 cm (5' 8 ) 04/14/2008 6:33 AM BRAND AMBASSADOR Body Mass Index 51.24 04/14/2008 6:33 AM BRAND AMBASSADOR documented in this encounter Discharge Summaries * Charlotte Chacon MD - 05/27/2008 8:12 AM [facility]ST[facility] Discharge Summary PATIENT NAME: KAROLINA RAMOS MR#: [id number] SEX: F : 1955 PHYS: CHARLOTTE CHACON M.D. ROOM#: [id number] ADMISSION DATE: 04/14/2008 DISCHARGE DATE: 04/17/2008 HISTORY: Karolina Ramos was admitted for right total knee replacement. She had no intraoperative, perioperative, or postoperative complications. Her wound remained clean, dry, intact, and not infected. Prior to discharge, she was given a full set of precautions, including activity instructions. She understood well, and had no questions. Maximum hospital benefit was felt to be obtained. CHARLOTTE CHACON M.D. J S:mq - [id number] cc: D AMBASSADOR documented in this encounter Discharge Instructions * Discharge Instructions* Jesika Perez Sonny - 04/17/2008 11:06 AM BRAND AMBASSADOR Discharge Instructions for: Kraolina Ramos Discharge Medications: See Medication Sheet Discharge Procedure Orders SEQUENTIAL COMPRESSION DEVICE (IMPLEMENT) NEUROVASCULAR CHECKS Report any significant decrease in pulse, numbness, pain, loss of motor function, change in limb color, swelling or redness of affected extremity to physician. DRAIN CARE DC DRAIN ON POST OP DAY #2 04-16-08 ICE TO AFFECTED AREA LT KNEE PATIENT TO CALL PHYSICIAN FOR APPOINTMENT Follow up with Dr Chacon at [phone] Bring all medications to visit. PATIENT TO [...] : no bowel movement in 3 days ACTIVITY TOLERATED REGULAR DIET AT HOME LOW VITAMIN K DISCHARGE MEDICATION INSTRUCTIONS See discharge/ home medication list MAY SHOWER May shower. Order Specific Question Answer Comments after... Other (enter comment) MAY SPONGE BATHE KNEE PRECAUTIONS CONTINUOUS PASSIVE MOVEMENT (CPM) Do not smoke Avoid second hand smoke The following belonging have been returned to you Clothing Clothing: Yes With Patient: Shirt;Pants;Jacket/Coat;Footwear;Undergarments Secured: Shirt;Pants;Jacket/Coat;Footwear Jewelry Jewelry: None Electronics Electronic Items: Yes With Patient: Other (Comment) (mp3 player) Dentures Dentures/Retainers: Yes Dentures Uppers: Secured Vision Visual Aids: Yes Glasses: Secured Hearing Aids Hearing Aids: None Equipment/Assistive Devices Equipment with Patient: Yes With Patient: CPAP/Bi-PAP Secured: CPAP/Bi-PAP Equipment At Home: Shower Chair;Commode-Raised Seat;Grab Bars Home Medications Home Medications: None Miscellaneous Belongings Miscellaneous Items: None WEIGHT MONITORING - If you [...] received a copy of the discharge instructions. 04/17/2008 D AMBASSADOR * Discharge Instructions* Document, Scanned - 04/14/2008 12:00 AM BRAND AMBASSADOR documented in this encounter Medications at Time of Discharge Medication Sig Dispensed Refills Start Date End Date CLOBETASOL PROPIONATE (CLOBEX SPRAY) 0.05 % LIQD 1 Squirt by Apply externally route daily. 4 oz 5 12/15/2007 10/18/2014 CLOBETASOL PROPIONATE (CLOBEX) 0.05 % LOTN 1 Applicatorful by Apply externally route daily. 4 oz 3 12/15/2007 10/18/2014 Clobetasol Propionate 0.05 % SHAMIndications:Psori asis by Apply externally route. Use as needed for shampoo for psoriasis of scalp 1 bottle prn 02/10/2008 10/18/2014 clobetasol propionate powd 50 mg in DERMAZINC SPRAYIndications:Psor iasis Apply to affected area. Use as needed for large areas of body affected by psoriasis 1 bottle prn 02/10/2008 10/18/2014 COLACE 100 MG CAPS Take 100 mg by mouth once daily as needed 03/22/2021 eszopiclone (LUNESTA) 2 MG tablet Take 1 [...] daily with breakfast. 90 3 12/15/2007 05/27/2008 VICODIN 5-500 MG TABS Take 1 Tab by mouth every 6 hours. Do not take more than 8 tablets in 24 hours 05/31/2008 documented as of this encounter Progress Notes * Jacob Ward MD - 07/26/2008 1:15 PM CDT POST-OP ANESTHESIA EVALUATION Evaluated By: Jacob Ward MD, 07/26/2008 1:15 PM Karolina Ramos is a 53 y.o. female Post-op Evaluation POST-OP EVALUATION A post-op evaluation was performed on the patient and he/she has met Discharge requirements: No Apparent Complications * Yumiko Dougherty MD - 04/17/2008 11:11 AM CST Admit Date: 04/14/2008 12:19 PM Hospital Day: 3 Clinical Course Improvement noted in knee pain New Symptoms Patient denies chest pain, shortness of breath, abdominal pain, nausea, vomiting, diarrhea, constipation, urinary problems or leg pain. Data Vitals: 04/16/2008 4:00 PM 04/16/2008 8:00 PM 04/16/2008 11:55 PM 04/17/2008 7:20 AM BP: 122/76 130/62 125/50 105/70 Pulse: 75 75 76 64 Temp: 98.6 ??F 97.7 ??F 100 ??F 98.5 ??F Resp: 20 18 20 Weight: SpO2: Intake and output were reviewed and unremarkable. Component Name 04/15/08 0645 04/12/08 1215 12/15/07 1242 WBC -- 8.6 11.9* HGB 11.9 14.2 14.6 HCT 34.2* 42.3 44.1* PLTCOUNT -- 188 223 Exam General appearance: alert, cooperative, no distress Heart: regular rhythm, normal S1 and S2, without murmurs, rubs or gallops Lungs: breath sounds normal and symmetric; no rales or wheezes Abdomen: soft without mass, non-tender, with normal bowel sounds Extremities: no clubbing, cyanosis or edema. Right knee dressed Assessment and Plan 1. S/P TKR (Total Knee Replacement) Stable. Continue Coumadin. Increase activity. OK discharge home. 2. HTN Labile. Improved. 3. Depression Stable. 4. GERD (Gastroesophageal Reflux Disease) Doing well D AMBASSADOR * Mery Bejarano RN - 04/17/2008 9:35 AM CST Agree with previous nursing assessment D AMBASSADOR * Charlotte Chacon MD - 04/17/2008 8:06 AM CST POD 3 Assessment: Alert. No chest pain or SOB. Dressing dry. Neurovascular OK. Wound ok Seems to be doing ok Plan discharge today after pt Blood pressure 105/70, pulse 76, temperature 98.5 ??F, resp. rate 20, height 1.727 m (5' 8 ), weight 152.862 kg (337 lb), last menstrual period Hysterectomy, SpO2 95%, not currently . Component Name 04/15/08 0645 04/12/08 1215 12/15/07 1242 HGB 11.9 14.2 14.6 HCT 34.2* 42.3 44.1* Component Name 04/17/08 0405 04/16/08 0430 04/15/08 0645 INR 1.3* 1.1 1.0 Plan: Increase activity as tolerted Continue PT Continue DVT prophylaxis D/C planning plan discharge Today after pt D AMBASSADOR * Caty Roberts - 04/16/2008 2:55 PM CST BMI Nutrition Note Height: 5' 8 (172.7 cm) Weight: 337 lb (152.862 kg) BMI (Calculated): 51.35 Rescreened at low nutritional risk. Caty Roberts D AMBASSADOR * Hortencia Jaquez OT - 04/16/2008 11:34 AM CST OT order received. See doc flowsheet for details. Will follow up for AE, ADLs, and fxnal mob/transfers daily. KR D AMBASSADOR * Suni Oneill - 04/16/2008 9:29 AM CST Attempted skilled PT tx this am. Pt c/o increased stiffness, PROM in sitting 0- 75 degrees. Dependent to get EOB this am and attempted sit to stand x 4 with max assist of 4 people, unable to clear thebed. Dependent x 4 to get back into the bed. Patient back on the CPM to try to decrease her feelingof stiffness. Will follow up this am to attempt supine there ex and sit to stand again. D AMBASSADOR * Charlotte Chacon MD - 04/16/2008 6:01 AM CST POD # Assessment: Alert. No chest pain or SOB. Dressing dry. Neurovascular OK. Blood pressure 102/58, pulse 80, temperature 98.8 ??F, resp. rate 16, height 1.727 m (5' 8 ), weight 152.862 kg (337 lb), last menstrual period Hysterectomy, SpO2 95%, not currently . Component Name 04/15/08 0645 04/12/08 1215 12/15/07 1242 HGB 11.9 14.2 14.6 HCT 34.2* 42.3 44.1* Component Name 04/16/08 0430 04/15/08 0645 04/12/08 1215 INR 1.1 1.0 1.0 Plan: Increase activity as tolerted Continue PT Continue DVT prophylaxis D/C planning POD # Assessment: Alert. No chest pain or SOB. Dressing dry. Neurovascular OK. Will dc whiteside and iv Plan discharge for Tomorrow wound and calf ok Blood pressure 102/58, pulse 80, temperature 98.8 ??F, resp. rate 16, height 1.727 m (5' 8 ), weight 152.862 kg (337 lb), last menstrual period Hysterectomy, SpO2 95%, not currently . Component Name 04/15/08 0645 04/12/08 1215 12/15/07 1242 HGB 11.9 14.2 14.6 HCT 34.2* 42.3 44.1* Component Name 04/16/08 0430 04/15/08 0645 04/12/08 1215 INR 1.1 1.0 1.0 Plan: Increase activity as tolerted Continue PT Continue DVT prophylaxis D/C planning POD # Assessment: Alert. No chest pain or SOB. Dressing dry. Neurovascular OK. Blood pressure 102/58, pulse 80, temperature 98.8 ??F, resp. rate 16, height 1.727 m (5' 8 ), weight 152.862 kg (337 lb), last menstrual period Hysterectomy, SpO2 95%, not currently . Component Name 04/15/08 0645 04/12/085 12/15/07 1242 HGB 11.9 14.2 14.6 HCT 34.2* 42.3 44.1* Component Name 04/16/08 0430 04/15/08 0645 04/12/08 1215 INR 1.1 1.0 1.0 Plan: Increase activity as tolerted Continue PT Continue DVT prophylaxis D/C planning POD # Assessment: Alert. No chest pain or SOB. Dressing dry. Neurovascular OK. Blood pressure 102/58, pulse 80, temperature 98.8 ??F, resp. rate 16, height 1.727 m (5' 8 ), weight 152.862 kg (337 lb), last menstrual period Hysterectomy, SpO2 95%, not currently . Component Name 04/15/08 0645 04/12/085 12/15/07 1242 HGB 11.9 14.2 14.6 HCT 34.2* 42.3 44.1* Component Name 04/16/08 0430 04/15/08 0645 04/12/08 1215 INR 1.1 1.0 1.0 Plan: Increase activity as tolerted Continue PT Continue DVT prophylaxis D/C planning POD # Assessment: Alert. No chest pain or SOB. Dressing dry. Neurovascular OK. Blood pressure 102/58, pulse 80, temperature 98.8 ??F, resp. rate 16, height 1.727 m (5' 8 ), weight 152.862 kg (337 lb), last menstrual period Hysterectomy, SpO2 95%, not currently . Component Name 04/15/08 0645 04/12/08121412/15/07 1242 HGB 11.9 14.2 14.6 HCT 34.2* 42.3 44.1* Component Name 04/16/08 0430 04/15/08 0645 04/12/08 1215 INR 1.1 1.0 1.0 Plan: Increase activity as tolerted Continue PT Continue DVT prophylaxis D/C planning D AMBASSADOR * Yajaira Cazares LPN - 04/15/2008 4:17 PM CST Home health order noted for RN/PT. Referral forwarded to [facility] ([phone]) due to patient's visit address. Heavy duty ww and CPM forwarded to [facility]E and ADM for delivery. Dischrge plannign sheet placed in patient's chart. [phone] D AMBASSADOR * Lucrecia Anderson RN - 04/15/2008 1:58 PM CST CM screen done. Pt lives alone. Pt was indep w/adl's No dme's used. Pt plans to stay at sister's house x 4 wks. [facility] needs-rn/pt/ww/cpm-Yajaira Cazares notified. Will follow. Lucrecia [phone] D AMBASSADOR * Suni Oneill - 04/15/2008 10:29 AM CST PT orders received. Please see doc flowsheet for full report. 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 Plan is to return home with sisterfor 4 wks. has house with 2 steps to enter. Patient will need ww at d/c. This date, patient ambulated 15' with ww with CGA and completed transfers with min/mod assist. Continue with POC BID to increase independence with all mobility towards PLOF. D AMBASSADOR * Yumiko Dougherty MD - 04/15/2008 8:51 AM CST Admit Date: 04/14/2008 12:19 PM Hospital Day: 1 Clinical Course Improvement noted in knee pain New Symptoms Patient denies chest pain, shortness of breath, abdominal pain, nausea, vomiting, diarrhea, constipation, urinary problems or leg pain. Data Vitals: 04/14/2008 8:00 PM 04/14/2008 11:50 PM 04/15/2008 4:05 AM 04/15/2008 7:45 AM BP: 166/99 143/85 111/68 120/80 Pulse: 103 98 84 80 Temp: 100.4 ??F 98.3 ??F 98 ??F 98 ??F Resp: 20 20 20 20 Weight: SpO2: Intake and output were reviewed and unremarkable. Component Name 04/15/08 0645 04/12/08 1215 12/15/07 1242 WBC -- 8.6 11.9* HGB 11.9 14.2 14.6 HCT 34.2* 42.3 44.1* PLTCOUNT -- 188 223 Exam General appearance: alert, cooperative, no distress Heart: regular rhythm, normal S1 and S2, without murmurs, rubs or gallops Lungs: breath sounds normal and symmetric; no rales or wheezes Abdomen: soft without mass, non-tender, with normal bowel sounds Extremities: no clubbing, cyanosis or edema. Right knee dressed Assessment and Plan 1. S/P TKR (Total Knee Replacement) Stable. Continue Coumadin. Increase activity. 2. HTN Labile. Will follow. 3. Depression Stable. 4. GERD (Gastroesophageal Reflux Disease) Doing well D AMBASSADOR * Charlotte Chacon MD - 04/15/2008 7:37 AM CST Alert No chest pain or sob. Dressing dry Hemovac removed. Increase activity as tolerated D AMBASSADOR * Hortencia Jaquez OT - 04/14/2008 1:55 PM CST OT order received. Will see patient POD 1 04/15/08 for OT eval. Thank you, KIRK Pretty/Morteza D AMBASSADOR * Jacob Ward MD - 04/14/2008 6:38 AM CST PRE-ANESTHESIA EVALUATION Evaluated By: Jacob Ward MD, 04/14/2008 6:38 AM Karolina Ramos is a 53 y.o. female Purpose: Scheduled Procedure: Right knee total arthroplasty Hospital Problem List Patient Active Problem List Diagnoses Code ??? Generalized Anxiety Disorder 300.02 ??? Depression 311L ??? HTN 401.9BX ??? GERD (Gastroesophageal Reflux Disease) 530.81S ??? Psoriasis 696.1U ??? Rheumatoid Arthritis 714.0 ??? MRSA (Methicillin Resistant Staphylococcus Aureus) 041.11L ??? ERROL (Obstructive Sleep Apnea) 327.23H ??? Screening Mammogram V76.12B ??? Pap Smear, High-Risk (Screening, no Prior Abnormality) V15.89C Allergies Penicillins Past Medical History Diagnosis Date ??? Arthritis ??? Edema bilateral ankles ??? MRSA (METHICILLIN RESISTANT STAPHYLOCOCCUS AUREUS) post right foot surgery ??? Psoriasis right leg, both elbows, scalp ??? Constipation ??? Sleep Apnea uses cpap machine ??? HYPERTENSION ??? Overweight, Obesity and Other Hyperalimentation ??? Depression Meds Prescriptions prior to admission Medication Sig Dispense Refill ??? COLACE 100 [...] as needed for Insomnia. 15 0 ??? venlafaxine XR 24hr (EFFEXOR XR) 150 MG capsule Take 1 Cap by mouth daily with breakfast. 90 3 ??? CLOBETASOL PROPIONATE (CLOBEX) 0.05 % LOTN 1 Applicatorful by Apply externally route daily. 4 oz 3 ??? CLOBETASOL PROPIONATE (CLOBEX SPRAY) 0.05 % LIQD 1 Squirt by Apply externally route daily. 4 oz 5 ??? propoxyphene napsylate-acetaminophen (DARVOCET) 100-500 MG tablet Take 1 Tab by mouth every 6 hours as needed for Pain. 30 0 ??? lisinopril (PRINIVIL; ZESTRIL) 40 MG tablet Take 10 mg by mouth daily. ??? LASIX PO Take 20 mg by mouth daily. ??? K + 10 PO Take by mouth daily. ??? metoprolol succinate XL 24hr (TOPROL XL) 100 MG tablet Take 100 mg by mouth 2 times daily. ??? felodipine CR 24hr (PLENDIL) 5 MG tablet Take 5 mg by mouth daily. Past Medical History Past Medical History Diagnosis Date ??? Arthritis ??? Edema bilateral ankles ??? MRSA (METHICILLIN RESISTANT STAPHYLOCOCCUS AUREUS) post right foot surgery ??? Psoriasis right leg, both elbows, scalp ??? Constipation ??? Sleep Apnea uses cpap machine ??? HYPERTENSION ??? Overweight, Obesity and Other Hyperalimentation ??? Depression Past Surgical History Past Surgical History Procedure Date ??? Arthroplasty 2005 left ??? Bunionectomy 2006 right ??? Bunionectomy 1993 left ??? Tubal ligation, laparoscopic 1976 ??? Breast reduction 1993 bilat ??? Back surgery 1995 L4L5 ??? Ankle fracture tx 1998 right ??? Ankle fracture tx 1999 hardware removed ??? Salpingo-oophorectomy 2004 bilat ??? Knee arthroscopy 1995 left ??? Knee arthroscopy 1996 right ??? Hysterectomy 1988 vaginal Last Vital Signs VITAL SIGNS Weight: 342 lb Height: 5' 8 Pre-Eval Exam PREVIOUS REVIEW I reviewed previous documentation: Yes PHYSICAL EXAM NPO status: Since Midnight Heart Sounds: S1 S2 Respiratory Pattern/Effort: CTA Oriented x 3: Yes Teeth: Dentures Upper (Denture: Full upper) Airway Class: II ANESTHESIA ASA: III Anesthesia Choices: General Post-op at the request of the surgeon: Femoral Nerve Block Post-Op: PACU PRE-EVAL REVIEW I have reviewed all previously documented physician evaluations: Yes D AMBASSADOR * Document, Scanned - 04/14/2008 12:00 AM BRAND AMBASSADOR documented in this encounter H&P Notes * Charlotte Chacon MD - 04/10/2008 8:10 AM [facility]ST[facility] Preoperative History and Physical PATIENT NAME: KAROLINA RAMOS MR#: [id number] ROOM#: SEX: F ADMISSION DATE: : 1955 PHYSICIANS NAME: CHARLOTTE CHACON M.D. DATE OF SURGERY: 04/14/2008 HISTORY OF PRESENT ILLNESS: Karolina Ramos is a 52-year-old female with severe right knee pain, to the point it is limiting her activities of daily living. She has been treating this nonoperatively, but is no longer responding to nonoperative treatment. She presents now for right total knee replacement. She has had a previous successful left total knee replacement. ALLERGIES: PENICILLIN. REVIEW OF SYSTEMS: She has had no recent chest pain, shortness of breath, abdominal pain, or change in bowel or bladder habits. PHYSICAL EXAMINATION: GENERAL: Examination reveals an alert female. HEAD, EARS, EYES, NOSE, AND THROAT: Clear. CHEST: Clear. CARDIOVASCULAR: Normal sinus rhythm. ABDOMEN: Reveals a soft, nontender abdomen with active bowel sounds. EXTREMITIES: Examination reveals 5 to approximately 100 degrees of flexion, with marked crepitance and pain to range of motion. Neurovascular status is intact. IMPRESSION: Advanced osteoarthritis, right knee. PLAN: Right total knee replacement. The risks, benefits, alternatives, and possible complications were explained. She accepts and requests to proceed. I have explained the nature, purpose and necessity of the operation/procedure, possible alternative methods of treatment, and risks involved, and the possibility of complication. End of Report. CHARLOTTE CHACON M.D. J S:mq - [id number] Reconciled Apr 12, [facility] cc: D AMBASSADOR documented in this encounter Procedure Notes * Document, Scanned - 04/14/2008 12:00 AM CSTAssociated Order(s): CARDIAC, EKG ORDER * Document, Scanned - 04/14/2008 12:00 AM CSTAssociated Order(s): CARDIAC, EKG ORDER * Document, Scanned - 04/14/2008 12:00 AM CSTAssociated Order(s): IMAGING/RADIOLOGY/XRAY RESULTS ORDER documented in this encounter Consult Notes * Yumiko Dougherty MD - 05/25/2008 11:40 AM CST Office Visit Karolina Ramos ( ) Patient Information Patient Name Karolina Pope 1955 Progress Notes YUMIKO DOUGHERTY MD [facility] Apr 12, 2008 12:04 PM Signed Karolina Ramos is a 53 y.o. female [...] Psoriasis ??? 714.0 Rheumatoid Arthritis Medically cleared. YUMIKO DOUGHERTY MD SatApr 13, 2008 10:02 AM Addended Quick Note: Labs OK. Forward to [facility] as scheduled for Knee Surgery tomorrow. ARNULFO GARCIA SatApr 13, 2008 4:46 PM Addended Quick Note: Per Jaky, pre-op already has these results. H&P Notes Reason for Visit Pre-op Physical Diagnoses Preoperative Examination [V72.84F] - Primary HTN [401.9BX] GERD [530.81S] Depression [311L] Psoriasis [696.1U] Rheumatoid Arthritis [714.0] Problem List Noted Resolved Generalized Anxiety Disorder [300.02] 12/12/2007 by ROBERT REINOSO Depression [311L] 12/12/2007 by ROBERT REINOSO HTN [401.9BX] 12/12/2007 by ROBERT REINOSO GERD (Gastroesophageal Reflux Disease) [530.81S] 12/12/2007 by ROBERT REINOSO Psoriasis [696.1U] 12/12/2007 by ROBERT REINOSO Rheumatoid Arthritis [714.0] 12/12/2007 by ROBERT REINOSO MRSA (Methicillin Resistant Staphylococcus Aureus) [041.11L] 12/12/2007 by ROBERT REINOSO 2006 ERROL (Obstructive Sleep Apnea) [327.23H] 12/12/2007 by ROBERT REINOSO CPAP Screening Mammogram [V76.12B] 12/12/2007 by ROBERT REINOSO 06 Pap Smear, High-Risk (Screening, no Prior Abnormality) [V15.89C] 12/12/2007 by ROBERT REINOSO hyst S/P TKR (Total Knee Replacement) [V43.65X] 04/15/2008 by YUMIKO DOUGHERTY Vitals - Last Recorded BP Pulse Ht LMP 170/112 76 1.727 m (5' 8 ) Hysterectomy All Flowsheet Templates (all recorded) AMBULATORY VITALS FLOWSHEET Flowsheet Screening Results None Previous Results None Patient Instructions None Discontinued Medications Reason for Discontinue HUMIRA SC clobetasol (TEMOVATE) 0.05 % ointment At Start of Encounter Disp Refills Start End clobetasol propionate powd 50 mg in DERMAZINC SPRAY (Taking) 1 bottle prn 02/10/2008 Sig - Route: Apply to affected area. Use as needed for large areas of body affected by psoriasis - Topical Class: Fax venlafaxine XR 24hr (EFFEXOR XR) 150 MG capsule (Taking) 90 3 12/15/2007 Sig - Route: Take 1 Cap by mouth daily with breakfast. - Oral Class: Fax CLOBETASOL PROPIONATE (CLOBEX) 0.05 % LOTN (Taking) 4 oz 3 12/15/2007 Sig - Route: 1 Applicatorful by Apply externally route daily. - Apply externally Class: Fax CLOBETASOL PROPIONATE (CLOBEX SPRAY) 0.05 % LIQD (Taking) 4 oz 5 12/15/2007 Sig - Route: 1 Squirt by Apply externally route daily. - Apply externally Class: Fax LASIX PO (Taking) Sig - Route: Take 20 mg by mouth daily. - Oral Class: Historical Medication K + 10 PO (Taking) Sig - Route: Take by mouth daily. - Oral Class: Historical Medication lisinopril (PRINIVIL; ZESTRIL) 40 MG tablet (Taking) 04/19/2008 Sig - Route: Take 10 mg by mouth daily. - Oral Class: Historical Medication metoprolol succinate XL 24hr (TOPROL XL) 100 MG tablet (Taking) 04/19/2008 Sig - Route: Take 100 mg by mouth 2 times daily. - Oral Class: Historical Medication felodipine CR 24hr (PLENDIL) 5 MG tablet (Taking) 04/19/2008 Sig - Route: Take 5 mg by mouth daily. - Oral Class: Historical Medication lansoprazole (PREVACID) 30 MG capsule 30 6 03/10/2008 04/14/2008 Sig - Route: Take 1 Cap by mouth daily before breakfast. - Oral Class: No Print Cosign: Accepted by Yumiko Dougherty MD on SatMar 10, 2008 1:43 PM Clobetasol Propionate 0.05 % SHAM 1 bottle prn 02/10/2008 Sig - Route: by Apply externally route. Use as needed for shampoo for psoriasis of scalp - Apply externally Class: Fax phenazopyridine (PYRIDIUM) 100 MG tablet 12 0 02/10/2008 04/14/2008 Sig - Route: Take 1 Tab by mouth 3 times daily as needed TAKE one or two tablets every 8 hrs as needed for urinary discomfort - do not take more than 2 days - Oral Class: Print HUMIRA SC 04/12/2008 Sig - Route: Inject subcutaneously. PER RHEUM - Subcutaneous Class: Historical Medication eszopiclone (LUNESTA) 2 MG tablet 15 0 01/19/2008 Sig - Route: Take 1 Tab by mouth nightly as needed for Insomnia. - Oral Class: Phone In Cosign: Accepted by Yumiko Dougherty MD on SatJan 20, 2008 7:54 AM propoxyphene napsylate-acetaminophen (DARVOCET) 100-500 MG tablet 30 0 12/15/2007 Sig - Route: Take 1 Tab by mouth every 6 hours as needed for Pain. - Oral Class: Print clobetasol (TEMOVATE) 0.05 % ointment 04/12/2008 Sig - Route: Apply to affected area as needed - Topical Class: Historical Medication Lab and Imaging Orders Ordered on CBC W AUTO DIFFERENTIAL - Lab and Imaging Orders 04/12/08 COMPREHENSIVE METABOLIC PANEL - Lab and Imaging Orders 04/12/08 PT-INR - Lab and Imaging Orders 04/12/08 PTT - Lab and Imaging Orders 04/12/08 URINALYSIS DIPSTICK AUTO - Lab and Imaging Orders 04/12/08 URINALYSIS MICROSCOPIC ONLY - Lab and Imaging Orders 04/12/08 Other Orders Ordered on P[facility] ELECTROCARDIOGRAM, COMPLETE - Other Orders 04/12/08 Result Summary for CBC W AUTO DIFFERENTIAL Result Information Status Provider Status Final result (04/13/2008 9:35 AM) Ordered Component Results Component Value Flag Low High Units Status WBC 8.6 4.0 10.5 x10E3/uL Fin Comment: Please note reference interval change for the pediatric CBC With Differential/Platelet RBC 4.71 3.80 5.10 x10E6/uL Fin Hgb 14.2 11.5 15.0 g/dL Fin Hct 42.3 34.0 44.0 % Fin MCV 90 80 98 fL Fin MCH 30.1 27.0 34.0 pg Fin MCHC 33.5 32.0 36.0 g/dL Fin RDW 14.3 11.7 15.0 % Fin Plt Ct 188 140 415 x10E3/uL Fin Neutrophils 60 40 74 % Fin Lymphs 28 14 46 % Fin Monocytes 8 4 13 % Fin Eos 3 0 7 % Fin Basos 1 0 3 % Fin Neutrophils (Absolute) 5.2 1.8 7.8 x10E3/uL Fin Lymphs (Absolute) 2.4 0.7 4.5 x10E3/uL Fin Monocytes(Absolute) 0.7 0.1 1.0 x10E3/uL Fin Eos (Absolute) 0.3 0.0 0.4 x10E3/uL Fin Baso (Absolute) 0.1 0.0 0.2 x10E3/uL Fin Hematology Comments: NOT AVAIL. Pre Result Narrative Additional Result Information HEMATOLOGY COMMENTS: BLOOD,URINE ([facility]): RESULT NOT AVAILABLE Lab and Collection CBC W AUTO DIFFERENTIAL (Order #[id number]) on 04/12/08 - Lab and Collection Information Result Summary for COMPREHENSIVE METABOLIC PANEL Result Information Status Provider Status Abnormal Final result (04/13/2008 9:35 AM) Ordered Component Results Component Value Flag Low High Units Status Glucose 167 H 65 99 mg/dL Fin BUN 13 5 26 mg/dL Fin Creatinine 0.60 0.57 1.00 mg/dL Fin EGFR Estimated >59 mL/min/1.73 Fin If -Baham[place] >59 mL/min/1.73 Fin Comment: Note: Persistent reduction for 3 months or more in an eGFR <60 mL/min/1.73 m2 defines CKD. Patients with eGFR values >/=60 mL/min/1.73 m2 may also have CKD if evidence of persistent proteinuria is present. Additional information may be found at [email or web address]. BUN/Creatinine Ratio 22 8 27 Fin Sodium 138 135 145 mmol/L Fin Potassium 4.1 3.5 5.2 mmol/L Fin Chloride 100 97 108 mmol/L Fin CO2 26 20 32 mmol/L Fin Calcium 9.5 8.5 10.6 mg/dL Fin Protein Total 7.7 6.0 8.5 g/dL Fin Albumin 3.9 3.5 5.5 g/dL Fin Globulin, Total 3.8 1.5 4.5 g/dL Fin A/G Ratio 1.0 L 1.1 2.5 Fin Bili Total 0.2 0.1 1.2 mg/dL Fin Alk Phos 119 25 150 IU/L Fin AST/SGOT 33 0 40 IU/L Fin ALT/SGPT 36 0 40 IU/L Fin Lab and Collection COMPREHENSIVE METABOLIC PANEL (Order #[id number]) on 04/12/08 - Lab and Collection Information Result Summary for PT-INR Result Information Status Provider Status Final result (04/13/2008 9:35 AM) Ordered Component Results Component Value Flag Low High Units Status INR ([facility]) 1.0 0.8 1.2 Fin Comment: Reference interval is for non-anticoagulated patients. . Suggested INR therapeutic range for Vitamin K antagonist therapy: Standard Dose (moderate intensity therapeutic range): 2.0 - 3.0 Higher intensity therapeutic range 2.5 - 3.5 PT 10.2 8.7 11.5 sec Fin Lab and Collection PT-INR (Order #[id number]) on 04/12/08 - Lab and Collection Information Result Summary for PTT Result Information Status Provider Status Final result (04/13/2008 9:35 AM) Ordered Component Results Component Value Flag Low High Units Status PTT 31 24 33 sec Fin Comment: This test has not been validated for monitoring unfractionated heparin therapy. aPTT-basedtherapeutic ranges for unfractionated heparin therapy have not been established. For general guidelines on Heparin monitoring, refer to the [facility] Directory of Services. Lab and Collection PTT (Order #[id number]) on 04/12/08 - Lab and Collection Information Result Summary for URINALYSIS DIPSTICK AUTO Result Information Status Provider Status Abnormal Final result (04/13/2008 6:10 AM) Ordered Component Results Component Value Flag Low High Units Status Urinalysis Gross Exam Fin Specific [place] 1.020 1.005 1.030 Fin pH 7.0 5.0 7.5 Fin Urine-Color Yellow Fin Appearance Turbid A Fin WBC Esterase Negative Fin Protein Negative Fin Glucose Negative Fin Ketones Negative Fin Occult Blood Negative Fin Bilirubin Urine Negative Fin Urobilinogen,Semi-Qn 0.2 0.0 1.9 mg/dL Fin Nitrite, Urine Negative Fin Microscopic Examination See below: Fin Lab and Collection URINALYSIS DIPSTICK AUTO (Order #[id number]) on 04/12/08 - Lab and Collection Information Result Summary for URINALYSIS MICROSCOPIC ONLY Result Information Status Provider Status Abnormal Final result (04/13/2008 6:10 AM) Ordered Component Results Component Value Flag Low High Units Status WBC None seen 0 5 /hpf Fin RBC None seen 0 3 /hpf Fin Epithelial Cells (non renal) >10 A 0 10 /hpf Fin Epithelial Cells (renal) NOT AVAIL. Pre Casts NOT AVAIL. Pre Cast Type NOT AVAIL. Pre Crystals Present A Fin Crystal Type Fin Amorphous Sediment Mucus Threads Present Fin Bacteria Few Fin Yeast NOT AVAIL. Pre Sperm NOT AVAIL. Pre Trichomonas NOT AVAIL. Pre Comment NOT AVAIL. Pre Result Narrative Additional Result Information EPITHELIAL CELLS (RENAL) /HPF URINE ([facility]): RESULT NOT AVAILABLE CASTS /LPF URINE ([facility]): RESULT NOT AVAILABLE CAST TYPE URINE ([facility]): RESULT NOT AVAILABLE YEAST URINE ([facility]): RESULT NOT AVAILABLE SPERM URINE ([facility]): RESULT NOT AVAILABLE TRICHOMONAS URINE ([facility]): RESULT NOT AVAILABLE COMMENT URINE ([facility]): RESULT NOT AVAILABLE Lab and Collection URINALYSIS MICROSCOPIC ONLY (Order #[id number]) on 04/12/08 - Lab and Collection Information Immunizations as of 04/12/2008 DT 04/23/2002 INFLUENZA VACCINE (AGE 3-ADULT) 02/10/2008 PNEUMOCOCCAL 08/13/2006 Your To Do List Future Orders Please Complete By Expires XR CHEST PA AND LATERAL (CXR) 04/12/09 EKG 12-LEAD 04/12/09 Level Of Service [facility] OFFICE CONSULTATION,LEVEL III [34930] Encounter Status Closed by Yumiko Dougherty MD on 04/12/08 at 12:04 PM Encounter Information Date Provider Department Encounter # 04/12/2008 Yumiko Munroe Farhat [facility] - Im [id number] Injections Ordered (Current encounter)No orders to display Order Related Charges Order # Procedure Code Description Qty. Modifiers Ordering User Auth. Prov. Diagnosis Status [id number] [facility] ELECTROCARDIOGRAM, COMPLETE 1 Marilyn Munroe Farhat UNSPECIFIED PRE-OPERATIVE EXAMINATION Filed [id number] CHG URINALYSIS, AUTO, W/O SCOPE 1 Yumiko Munroe Farhat UNSPECIFIED PRE- OPERATIVE EXAMINATION Filed [id number] [facility] MICROSCOPIC EXAM OF URINE 1 Results In [facility] Interface Yumiko Munroe Farhat UNSPECIFIED PRE-OPERATIVE EXAMINATION Filed [id number] CHG COMPLETE CBC & AUTO DIFF WBC 1 Yumiko Munroe Farhat UNSPECIFIED PRE-OPERATIVE EXAMINATION Filed [id number] [facility] METABOLIC PANEL,COMPREHENSIVE 1 Yumiko Munroe Farhat UNSPECIFIED PRE- OPERATIVE EXAMINATION Filed [id number] CHG PROTHROMBIN TIME 1 Yumiko Hollins omas A Farhat UNSPECIFIED PRE-OPERATIVE EXAMINATION Filed [id number] CHG THROMBOPLAS TIME PARTIAL1 Yumiko Dougherty UNSPECIFIED PRE-OPERATIVE EXAMINATION Filed [id number] [facility] COLLECTION VENOUS BLOOD,VENIPUNCTURE 1 Yumiko Dougherty UNSPECIFIED PRE-OPERATIVE EXAMINATION Filed Other Charges Charge ID Procedure Code Description Qty. Modifiers Supply Person User Diagnosis Status [id number] [facility] OFFICE CONSULTATION,LEVEL III 1 Yumiko Dougherty UNSPECIFIED PRE-OPERATIVE EXAMINATION UNSPECIFIED ESSENTIAL HYPERTENSION ESOPHAGEAL REFLUX DEPRESSIVE DISORDER, NOT ELSEWHERE CLASSIFIED OTHER PSORIASIS RHEUMATOID ARTHRITIS Filed Encounter Scans - 04/12/2008 There are no scans attached to this encounter. Order-Level Scans - 04/12/2008 There are no order-level scans attached to this encounter. Patient-Level Scans Insurance Card/Documents - Scan on 04/14/08 by Marci PabloInsurance Card/Documents - Scan on 04/14/08 by Marci Pablo HIPAA Notice of Privacy - Scan on 12/30/07 [facility] ofPrivacy - Scan on 12/30/07 by Kalyn Sol Insurance Card/Documents - Scan on 12/30/07 by Tatiana Sol nnieInsurance Card/Documents - Scan on 12/30/07 by Kalyn Sol D AMBASSADOR * Suki Madison - 04/15/2008 3:06 PM CSTAssociated Order(s): IP CONSULT TO TOBACCO CESSATION Smoking cessation booklet provided D AMBASSADOR documented in this encounter OR Notes * Operative - Charlotte Chacon MD - 04/14/2008 12:00 [facility] Oper[facility] Report PATIENT NAME: KAROLINA RAMOS MR#: [id number] ROOM#: SEX: F SURGEON: CHARLOTTE CHACON M.D. : 1955 SURGERY DATE: 04/14/2008 PREOPERATIVE DIAGNOSIS: Advanced tricompartmental osteoarthritis of the right knee. POSTOPERATIVE DIAGNOSIS: Advanced tricompartmental osteoarthritis of the right knee. PROCEDURE PERFORMED: Right cemented posterior stabilized Campo-Nephew total knee replacement. CO-SURGEON: Lionel Kiran M.D. ANESTHESIA: General. DESCRIPTION OF PROCEDURE: Following premedication and informed consent, the patient was taken to the operating room and given a general anesthetic. After an adequate level of anesthesia had been obtained, the patient's knee was prepped and draped in the usual sterile fashion using Iodoform preparation of the skin. A longitudinal skin incision was made over the anterior aspect of the knee. A medial parapatellar capsulotomy was performed. The knee was flexed, and the patella was translated laterally. A marginal osteophyte and soft tissue debridement was then undertaken. A Flynn Cece II posterior stabilized knee instrumentation was then used to make the appropriate condylar cuts. The distal femoral intramedullary cutting jig was applied. The distal femoral cut was made in 3 degrees of valgus. The anterior and posterior dimension was sized to a #5 component. The #5 anterior, posterior, and chamfer, and posterior stabilized cutting jig was applied. Those appropriate condylar cuts were made, followed by a patellar condylar cut, and three holes placed in the patella to aid in fixation of a 35 mm resurfaced component. The proximal tibial cutting jig was applied and was prepared to accept a #4 stem trial. The trials with a 9 mm insert gave a stable functional balanced range of motion with good patella tracking. The trials were removed. The joint was copiously lavaged and dried. The femoral components were then cemented into place using methylmethacrylate. Excess cement was removed from the joint. A drain was placed. The capsule was repaired using #1 Vicryl ligatures. The subcutaneous tissue was closed using 2-0 Vicryl ligatures. The skin was closed using sterile stainless steel skin alex. Appropriate sterile dressings were applied. The patient tolerated the procedure well and was taken to the recovery room in good condition, with stable vital signs. CHARLOTTE CHACON M.D. J S:mq - [id number] cc: YUMIKO DOUGHERTY M.D. D AMBASSADOR * Operative - Lionel Kiran MD - 04/14/2008 12:00 AM [facility] Operative Report PATIENT NAME: KAROLINA RAMOS MR#: [id number] ROOM#: SEX: F SURGEON: LIONEL KIRAN M.D. : 1955 SURGERY DATE: 04/14/2008 SURGEON: Charlotte Chacon M.D. WAX ROOM SUPERVISOR: Lionel Kiran M.D. 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 PROCEDURE: Cemented Campo and Nephew total knee arthroplasty, right knee. DESCRIPTION OF PROCEDURE: The patient was administered IV antibiotics and general anesthesia. After a routine prep and drape of the right knee, through an anterior incision, a cemented Campo and Nephew total knee arthroplasty was performed. The patella was resurfaced. The anterior and posterior cruciate ligaments were excised. Dr. Chacon was the primary surgeon, I functioned as the assistant front desk manager. The procedure was ended, and the patient tolerated the procedure well. This document has been reviewed and signed by LIONEL KIRAN Sign Date/Time: 04/23/2008 7:23AM LIONEL KIRAN M.D. E D:mq - [id number] cc: D AMBASSADOR documented in this encounter Miscellaneous Notes * Miscellaneous Scans - Document, Scanned - 04/14/2008 12:00 AM BRAND AMBASSADOR * Miscellaneous Scans - Document, Scanned - 04/14/2008 12:00 AM BRAND AMBASSADOR * Miscellaneous Scans - Document, Scanned - 04/14/2008 12:00 AM BRAND AMBASSADOR * Miscellaneous Scans - Document, Scanned - 04/14/2008 12:00 AM BRAND AMBASSADOR * Miscellaneous Scans - Document, Scanned - 04/14/2008 12:00 AM BRAND AMBASSADOR * Miscellaneous Scans - Document, Scanned - 04/14/2008 12:00 AM BRAND AMBASSADOR * Miscellaneous Scans - Document, Scanned - 04/14/2008 12:00 AM BRAND AMBASSADOR * Miscellaneous Scans - Document, Scanned - 04/14/2008 12:00 AM BRAND AMBASSADOR * Miscellaneous Scans - Document, Scanned - 04/14/2008 12:00 AM BRAND AMBASSADOR * Miscellaneous Scans - Document, Scanned - 04/14/2008 12:00 AM BRAND AMBASSADOR * Miscellaneous Scans - Document, Scanned - 04/14/2008 12:00 AM BRAND AMBASSADOR documented in this encounter Plan of Treatment Not on file documented as of this encounter Procedures Procedure Name Priority Date/Time Associated Diagnosis Comments IMAGING/RADIOLOGY/X RAY RESULTS ORDER 04/20/2008 1:30 PM BRAND AMBASSADOR CARDIAC EKG ORDER 04/20/2008 1:3 0 PM BRAND AMBASSADOR PT-INR Routine 04/17/2008 4:05 AM BRAND AMBASSADOR Loc Osteoarth NOS-L/Leg PT-INR Routine 04/16/2008 4:30 AM BRAND AMBASSADOR Loc Osteoarth NOS-L/Leg PT-INR Routine 04/15/2008 6:45 AM BRAND AMBASSADOR Loc Osteoarth NOS-L/Leg HGB HCT PANEL Routine 04/15/2008 6:45 AM BRAND AMBASSADOR Loc Osteoarth NOS-L/Leg GLUCOSE - POINT OF CARE Routine 04/14/2008 10:48 AM BRAND AMBASSADOR Loc Osteoarth NOS-L/Leg documented in this encounter Results * CARDIAC, EKG ORDER (04/20/2008 1:30 PM BRAND AMBASSADOR) Narrative Procedure Note Document, Scanned - 04/14/2008 12:00 AM BRAND AMBASSADOR Transcriptions Document, Scanned - 04/14/2008 12:00 AM BRAND AMBASSADOR Scanned Document CARDIAC SERVICES ORD ERABLES * IMAGING/RADIOLOGY/XRAY RESULTS ORDER (04/20/2008 1:30 PM BRAND AMBASSADOR) Anatomical Region Laterality Modality Other Narrative 04/20/2008 1:30 PM BRAND AMBASSADOR Ordered by an unspecified provider. Transcriptions Document, Scanned - 04/14/2008 12:00 AM BRAND AMBASSADOR Scanned Document IMAGING * (ABNORMAL) PT-INR (04/17/2008 4:05 AM BRAND AMBASSADOR) PT 13.4(DH) 9.3 - 11.4 seconds [facility] INR 1.3(H) SEE BELOW [facility] Comment: 0.9-1.2 Normal 2.0-3.0 Therapeutic 2.5-3.5 High Risk BLOOD SPECIMEN / Unknown 04/17/2008 4:05 AM BRAND AMBASSADOR 04/17/2008 4:29 AM BRAND AMBASSADOR Charlotte Chacon MD LAB - COAGULATION O [place] Performing Organization Address City/[facility] Co de Phone Number [facility] [address] [place] [address] * (ABNORMAL) PT-INR (04/16/2008 4:30 AM BRAND AMBASSADOR) PT 11.5(H) 9.3 - 11.4 seconds [facility] INR 1.1 SEE BELOW [facility] Comment: 0.9-1.2 Normal 2.0-3.0 Therapeutic 2.5-3.5 High Risk BLOOD SPECIMEN / Unknown 04/16/2008 4:30 AM BRAND AMBASSADOR 04/16/2008 4:54 AM BRAND AMBASSADOR Charlotte Chacon MD LAB - COAGULATION O [place] [facility] [address] [place] [address] * PT-INR (04/15/2008 6:45 AM BRAND AMBASSADOR) PT 10.8 9.3 - 11.4 seconds [facility] INR 1.0 SEE BELOW [facility] Comment: 0.9-1.2 Normal 2.0-3.0 Therapeutic 2.5-3.5 High Risk BLOOD SPECIMEN / Unknown 04/15/2008 6:45 AM BRAND AMBASSADOR 04/15/2008 7:03 AM BRAND AMBASSADOR Charlotte Chacon MD LAB - COAGULATION O RDERABLES Performing Organization Address [facility] Co de Phone Number [facility] [address] [place] [address] * (ABNORMAL) HGB HCT PANEL (04/15/2008 6:45 AM BRAND AMBASSADOR) Hemoglobin 11.9 11.7 - 15.5 gm/dL [facility] Hematocrit 34.2(L) 36 - 46 % [facility] BLOOD SPECIMEN / Unknown 04/15/2008 6:45 AM BRAND AMBASSADOR 04/15/2008 7:03 AM BRAND AMBASSADOR Charlotte Chacon MD LAB - HEMATOLOGY OR DERABLES Performing Organization Address [facility] de Phone Number [facility] [address] [place] [address] * (ABNORMAL) GLUCOSE - POINT OF CARE (04/14/2008 10:48 AM BRAND AMBASSADOR) Glucose WB/POC 177(H) 65 - 110 mg/dL [facility] BLOOD SPECIMEN / Unknown 04/14/2008 10:48 AM BRAND AMBASSADOR 04/14/2008 12:32 PM BRAND AMBASSADOR Charlotte Chacon MD LAB - POINT OF CARE ORDERABLES Performing Organization Address [facility] de Phone Number [address] [address] documented in this encounter Visit Diagnoses Diagnosis Localized osteoarthrosis not specified whether primary or secondary, lower leg S/P TKR (total knee replacement) Knee joint replacement by other means HTN Unspecified essential hypertension Depression Depressive disorder, not elsewhere classified GERD (gastroesophageal reflux disease) Esophageal reflux documented in this encounter Administered Medications Inactive Administered Medications - up to 3 most recent administrations Medication Order MAR Action Action Date Dose Rate Site Clobetasol Propionate 0.05 % LIQD 1 . 1 mg/kg/dOSE, Apply externally, DAILY, First dose on Sat04/14/08 at 1345, Until Discontinued, Patient own supply $ Given 04/17/2008 9:00 AM BRAND AMBASSADOR 1 mg/kg/dOSE Right Leg $ Given 04/16/2008 9:00 AM BRAND AMBASSADOR 1 mg/kg/dOSE Wound $ Given 04/15/2008 9:00 AM BRAND AMBASSADOR 1 mg/kg/dOSE Left Arm Clobetasol Propionate 0.05 % LOTN 1 . 1 mg/kg/dOSE, Apply externally, DAILY, First dose on Sat04/14/08 at 1345, Until Discontinued, Patient own supply $ Given 04/17/2008 9:00 AM BRAND AMBASSADOR 1 mg/kg/dOSE Left Arm $ Given 04/16/2008 9:00 AM BRAND AMBASSADOR 1 mg/kg/dOSE Wound $ Patient/Family Admin 04/14/2008 1:45 PM BRAND AMBASSADOR 1 mg/kg/dOSE Abdominal Tissue dextrose 5 % and 0.45% nacl infusion at 75 mL/hr, Intravenous, CONTINUOUS, Starting on Sat04/14/08 at 1430, Until Sat04/16/08 at 0915 $ New Bag/Syringe 04/16/2008 12:37 AM BRAND AMBASSADOR 75 mL/hr $ New Bag/Syringe 04/15/2008 11:14 AM BRAND AMBASSADOR 75 mL /hr $ New Bag/Syringe 04/14/2008 6:30 PM BRAND AMBASSADOR 1,000 mL 75 mL/ hr docusate sodium (COLACE) capsule 100 mg 100 mg, Oral, 2 TIMES DAILY, First dose (after last modification) on Sat04/14/08 at 2100, Until Discontinued $ Given 04/17/2008 7:43 AM BRAND AMBASSADOR 100 mg $ Given 04/16/2008 8:41 PM BRAND AMBASSADOR 100 mg $ Given 04/16/2008 8:08 AM BRAND AMBASSADOR 100 mg eszopiclone (LUNESTA) tablet 2 mg 2 mg, Oral, AT BEDTIME PRN, Insomnia, Starting on Sat04/14/08 at 1345, Until 04/18/08 at 0125 $ Given 04/16/2008 8:40 PM BRAND AMBASSADOR 2 mg felodipine CR 24hr (PLENDIL) tablet 5 mg 5 mg, Oral, DAILY, First dose on Sat04/14/08 at 1400, Until Discontinued, Do not crush, chew, or cut in half. $ Given 04/16/2008 8:08 AM BRAND AMBASSADOR 5 mg $ Given 04/15/2008 9:13 AM BRAND AMBASSADOR 5 mg $ Given 04/14/2008 6:17 PM BRAND AMBASSADOR 5 mg fentanyl (SUBLIMAZE) injection 76.45-152.85 mcg 76.45-152.85 mcg (0.5-1 mcg/kg ? 152.9 kg), Intravenous, POST-OP MULTIPLE, Starting on Sat04/14/08 at 1003, Until Sat04/14/08 at 1132, 0.5 mcg/kg every 5 minutes as needed for pain of 1-5 on pain scale. 0.5 mcg/kg - 1 mcg/kg every 5 minutes as needed for pain of 6-10 on pain scale. DO NOT EXCEED 2 mcg/kg/hour. $ Given 04/14/2008 9:55 AM BRAND AMBASSADOR 50 mcg $ Given 04/14/2008 9:43 AM BRAND AMBASSADOR 50 mcg fentanyl (SUBLIMAZE) injection 1 dose, Starting on Sat04/14/08 at 0945, Until Sat04/14/08 at 1006, STEVEN PETER: Cabinet Override hydrocodone-acetaminophen (NORCO) 7.5-325 MG tablet 1 Tab 1 tablet, Oral, EVERY 4 HOURS PRN, Pain, Starting on Sat04/14/08 at 1517, Until Sat04/18/08 at 0125, Maximum allowable Acetaminophen amount = 4 Grams / 24 hours. $ Given 04/17/2008 7:42 AM BRAND AMBASSADOR 1 tablet $ Given 04/16/2008 4:01 PM BRAND AMBASSADOR 1 tablet $ Given 04/16/2008 12:12 PM BRAND AMBASSADOR 1 tablet HYDROmorphone (DILAUDID) injection 0.5 mg 0.5 mg, Intravenous, POST-OP MULTIPLE, Starting on Sat04/14/08 at 1003, Until Sat04/14/08 at 1132, 0.5 mg every 10 minutes as needed for pain of 5-10 on pain scale. Up to 2 mg IV/hr maximum $ Given 04/14/2008 11:04 AM BRAND AMBASSADOR 0.5 mg $ Given 04/14/2008 10:56 AM BRAND AMBASSADOR 0.5 mg $ Given 04/14/2008 10:21 AM BRAND AMBASSADOR 0.5 mg HYDROmorphone (DILAUDID) injection 1 dose, Starting on Sat04/14/08 at 1001, Until Sat04/14/08 at 1010, STEVEN PETER: Cabinet Override lactated ringers infusion at 20 mL/hr, Intravenous, PRE-OP CONTINUOUS, Until Sat04/14/08 at 1132 $ Given 04/14/2008 7:04 AM BRAND AMBASSADOR 20 mL/hr Right Arm lidocaine (XYLOCAINE) 1 % injection Infiltration, PRE-OP ONCE, 1 dose, May be used (0.2 ml locally to anesthetize prior to insertion if patient has NKA to Lidocaine.) $ Given 04/14/2008 7:03 AM BRAND AMBASSADOR 30 mL Right Arm lisinopril (PRINIVIL; ZESTRIL) tablet 10 mg 10 mg, Oral, DAILY, First dose on Sat04/14/08 at 1400, Until Discontinued $ Given 04/16/2008 8:08 AM BRAND AMBASSADOR 10 mg $ Given 04/15/2008 9:13 AM BRAND AMBASSADOR 10 mg $ Given 04/14/2008 6:18 PM BRAND AMBASSADOR 10 mg metoprolol succinate XL 24hr (TOPROL XL) tablet 100 mg 100 mg, Oral, 2 TIMES DAILY, First dose on Sat04/14/08 at 1400, Until Discontinued, May cut in half but do not crush or chew $ Given 04/16/2008 8:40 PM BRAND AMBASSADOR 100 mg $ Given 04/16/2008 8:08 AM BRAND AMBASSADOR 100 mg $ Given 04/15/2008 9:13 AM BRAND AMBASSADOR 100 mg midazolam (VERSED) injection 2 mg 2 mg, Intravenous, PRE-OP ONCE, 1 dose, On Sat04/14/08 at 0745 $ Given 04/14/2008 7:40 AM BRAND AMBASSADOR 2 mg morphine 1 mg/ml PIPE CAULKER Intravenous, PIPE CAULKER, Until Sat04/16/08 at 0915, ................. - PIPE CAULKER Dose: 0.8 mg dose with 12 min lockout (4 mg/hr) - Contact physician if respiratory rate falls below 10/minute. If respiratory rate < 7/min administer naloxone (Narcan) 0.2 mg IV STAT, begin oxygen at 4-10 LPM, STOP PIPE CAULKER immediately, and contact physician. $ New Syringe 04/15/2008 8:56 AM BRAND AMBASSADOR 50 mg $ Given 04/14/2008 10:18 AM BRAND AMBASSADOR 50 mg morphine PIPE CAULKER 1 dose, Starting on Sat04/14/08 at 0935, Until Sat04/14/08 at 1019, STEVEN PETER: Cabinet Override oxycodone-acetaminophen (PERCOCET) 5-325 MG tablet 1 Tab 1 tablet, Oral, EVERY 4 HOURS PRN, Pain, Starting on Sat04/14/08 at 1516, Until Sat04/18/08 at 0125, Maximum allowable Acetaminophen amount = 4 Grams / 24 hours. $ Given 04/15/2008 9:07 PM BRAND AMBASSADOR 1 tablet oxycodone-acetaminophen (PERCOCET) 7.5-325 MG tablet 1 Tab 1 tablet, Oral, EVERY 4 HOURS PRN, Pain, Starting on Sat04/14/08 at 1516, Until 04/18/08 at 0125, Maximum allowable Acetaminophen amount = 4 Grams / 24 hours. $ Given 04/15/2008 6:35 AM BRAND AMBASSADOR 1 tablet Oral Mucosa $ Given 04/15/2008 1:00 AM BRAND AMBASSADOR 1 tablet Or al Mucosa potassium chloride SA (MICRO-K) capsule 10 mEq 10 mEq, Oral, DAILY, First dose on Sat04/14/08 at 1400, Until Discontinued, Do not crush or chew. $ Given 04/17/2008 7:58 AM BRAND AMBASSADOR 10 mEq $ Given 04/16/2008 8:08 AM BRAND AMBASSADOR 10 mEq $ Given 04/15/2008 9:13 AM BRAND AMBASSADOR 10 mEq propoxyphene napsylate-acetaminophen (DARVOCET N-100) 100-650 MG tablet 1 Tab 1 tablet, Oral, EVERY 6 HOURS PRN, Pain, Starting on Sat04/14/08 at 1356, Until 04/18/08 at 0125, Maximum allowable Acetaminophen amount = 4 Grams / 24 hours. $ Given 04/15/2008 12:12 PM BRAND AMBASSADOR 1 tablet $ Given 04/14/2008 2:40 PM BRAND AMBASSADOR 1 tablet vancomycin (VANCOCIN) 2,000 mg in 0.9% nacl IVPB 2,000 mg, Intravenous, ONE TIME, 1 dose, Starting on Sat04/14/08 at 0700, Until Sat04/14/08 at 0742, Refrigerate $ Given 04/14/2008 7:42 AM BRAND AMBASSADOR 2,000 mg 250 mL/hr vancomycin (VANCOCIN) 2,000 mg in dextrose 5% IVPB 2,000 mg, Intravenous, EVERY 12 HOURS, 1 dose, First dose on Sat04/14/08 at 1900, Refrigerate $ Given 04/14/2008 6:15 PM BRAND AMBASSADOR 2,000 mg 2 50 mL/hr warfarin (COUMADIN) tablet 6 mg 6 mg, Oral, ONCE WARFARIN, 1 dose, On Sat04/14/08 at 1800 $ Given 04/14/2008 6:14 PM BRAND AMBASSADOR 6 mg warfarin (COUMADIN) tablet 6 mg 6 mg, Oral, ONCE WARFARIN, 1 dose, On Rhoda 04/15/08 at 1800 $ Given 04/15/2008 5:43 PM BRAND AMBASSADOR 6 mg warfarin (COUMADIN) tablet 7.5 mg 7.5 mg, Oral, ONCE WARFARIN, 1 dose, On Sat04/16/08 at 1800 $ Given 04/16/2008 5:59 PM BRAND AMBASSADOR 7.5 mg documented in this encounter Active and Recently Administered Medications Times are shown in BRAND AMBASSADOR. Scheduled Medication Order 04/15/2008 04/16/2008 04/17/2008 Clobetasol Propionate 0.05 % LIQD 1 . (CANCELED) 1 mg/kg/dOSE, Apply externally, DAILY, First dose on Sat04/14/08 at 1345, Until Discontinued, Patient own supply 0900 ($ Given - Provider: Celeste Carpenter RN - Comment: medication from home not scanable) 0900 ($ Given - Provider: Carla Aden RN - Comment: Patient applies own cream to psoriasis) 0900 ($ Given - Provider: Jesika Perez) Clobetasol Propionate 0.05 % LOTN 1 . (CANCELED) 1 mg/kg/dOSE, Apply externally, DAILY, First dose on Sat04/14/08 at 1345, Until Discontinued, Patient own supply 0900 (Not Administered - Provider: Celeste Carpenter RN - Reason: See Comments - Comment: duplicate entry med entererd twice) 0900 ($ Given - Provider: Carla Aden RN - Comment: Patient applies own cream to psoriasis) 0900 ($ Given - Provider: Jesika Perez) docusate sodium (COLACE) capsule 100 mg (CANCELED) 100 mg, Oral, 2 TIMES DAILY, First dose (after last modification) on Sat04/14/08 at 2100, Until Discontinued 0914 ($ Given - Provider: Celeste Carpenter RN)2100 ($ Given - Provider: Claudia Pollock RN) 0808 ($ Given - Provider: Carla Aden RN)2041 ($ Given - Provider: Dora Ontiveros RN) 0743 ($ Given - Provider: Jesika Perez) felodipine CR 24hr (PLENDIL) tablet 5 mg (CANCELED) 5 mg, Oral, DAILY, First dose on Sat04/14/08 at 1400, Until Discontinued, Do not crush, chew, or cut in half. 0913 ($ Given - Provider: Celeste Carpenter RN) 0808 ($ Given - Provider: Carla Aden, TESHA) 0743 (Held - Provider: Jesika Perez) lisinopril (PRINIVIL; ZESTRIL) tablet 10 mg (CANCELED) 10 mg, Oral, DAILY, First dose on Sat04/14/08 at 1400, Until Discontinued 0913 ($ Given - Provider: Celeste Carpenter RN) 0808 ($ Given - Provider: Carla Aden, TESHA) 0743 (Held - Provider: Jesika Perez) metoprolol succinate XL 24hr (TOPROL XL) tablet 100 mg (CANCELED) 100 mg, Oral, 2 TIMES DAILY, First dose on Sat04/14/08 at 1400, Until Discontinued, May cut in half but do not crush or chew 0913 ($ Given - Provider: Celeste Carpenter RN)2100 (Held - Provider: Claudia Pollock RN) 0808 ($ Given - Provider: Carla Aden, TESHA)2040 ($ Given - Provider: Dora Ontiveros RN) 0742 (Held - Provider: Jesika Perez) potassium chloride SA (MICRO-K) capsule 10 mEq (CANCELED) 10 mEq, Oral, DAILY, First dose on Sat04/14/08 at 1400, Until Discontinued, Do not crush or chew. 0913 ($ Given - Provider: Celeste Carpenter RN) 0808 ($ Given - Provider: Crala Aden, TESHA - Comment: No Potassium level done this admit) 0758 ($ Given - Provider: Jesika Perez) warfarin (COUMADIN) tablet 6 mg (COMPLETED) 6 mg, Oral, ONCE WARFARIN, 1 dose, On Rhoda 04/15/08 at 1800 1743 ($ Given - Provider: Celeste Carpenter RN) warfarin (COUMADIN) tablet 7.5 mg (COMPLETED) 7.5 mg, Oral, ONCE WARFARIN, 1 dose, On Sat04/16/08 at 1800 1759 ($ Given - Provider: Carla Aden, TESHA) Continuous Medication Order 04/15/2008 04/16/2008 04/17/2008 dextrose 5 % and 0.45% nacl infusion (CANCELED) at 75 mL/hr, Intravenous, CONTINUOUS, Starting on Sat04/14/08 at 1430, Until Sat04/16/08 at 0915 1114 ($ New Bag/Syringe - Provider: Nandini Vásquez RN) 0037 ($ New Bag/Syringe - Provider: Claudia Pollock RN) morphine 1 mg/ml PIPE CAULKER (CANCELED) Intravenous, PIPE CAULKER, Until Sat04/16/08 at 0915, ................. - PIPE CAULKER Dose: 0.8 mg dose with 12 min lockout (4 mg/hr) - Contact physician if respiratory rate falls below 10/minute. If respiratory rate < 7/min administer naloxone (Narcan) 0.2 mg IV STAT, begin oxygen at 4-10 LPM, STOP PIPE CAULKER immediately, and contact physician. 0856 ($ New Syringe - Provider: Nandini Vásquez RN)0858 (Rx Stopped - Provider: Nandini Vásquez RN - Comment: 0ml wasted) PRN Medication Order 04/15/2008 04/16/2008 04/17/2008 eszopiclone (LUNESTA) tablet 2 mg (CANCELED) 2 mg, Oral, AT BEDTIME PRN, Insomnia, Starting on Sat04/14/08 at 1345, Until Sat04/18/08 at 0125 2040 ($ Given - Provider: Dora Ontiveros RN) hydrocodone-acetaminophe n (NORCO) 7.5-325 MG tablet 1 Tab (CANCELED) 1 tablet, Oral, EVERY 4 HOURS PRN, Pain, Starting on Sat04/14/08 at 1517, Until 04/18/08 at 0125, Maximum allowable Acetaminophen amount = 4 Grams / 24 hours. 0948 ($ Given - Provider: Celeste Carpenter RN)1742 ($ Given - Provider: Celeste Carpenter RN) 0808 ($ Given - Provider: Carla Aden, TESHA)1212 ($ Given - Provider: Carla Aden RN)1601 ($ Given - Provider: Carla Aden RN) 0742 ($ Given - Provider: Jesika Perez) oxycodone-acetaminophen (PERCOCET) 5-325 MG tablet 1 Tab (CANCELED) 1 tablet, Oral, EVERY 4 HOURS PRN, Pain, Starting on Sat04/14/08 at 1516, Until 04/18/08 at 0125, Maximum allowable Acetaminophen amount = 4 Grams / 24 hours. 2107 ($ Given - Provider: Claudia Pollock RN) oxycodone-acetaminophen (PERCOCET) 7.5-325 MG tablet 1 Tab (CANCELED) 1 tablet, Oral, EVERY 4 HOURS PRN, Pain, Starting on Sat04/14/08 at 1516, Until 04/18/08 at 0125, Maximum allowable Acetaminophen amount = 4 Grams / 24 hours. 0100 ($ Given - Provider: Yudi Persaud RN)0635 ($ Given - Provider: Yudi Persaud RN) propoxyphene napsylate-acetaminophen (DARVOCET N-100) 100-650 MG tablet 1 Tab (CANCELED) 1 tablet, Oral, EVERY 6 HOURS PRN, Pain, Starting on Sat04/14/08 at 1356, Until 04/18/08 at 0125, Maximum allowable Acetaminophen amount = 4 Grams / 24 hours. 1212 ($ Given - Provider: Celeste Carpenter RN) documented in this encounter Additional Health Concerns Infection Onset Date Last Indicated Resolved Time MRSA 01/23/2008 01/23/2008 03/16/2021 8:30 AM BRAND AMBASSADOR documented as of this encounter Care Teams Act English Tutor Relationship Specialty Start Date End Date Yumiko Dougherty MD [address] [place] [address] PCP - General 10/10/07 10/14/12 documented as of this encounter
--- OUTSIDE RECORDS SUMMARY | 2024-05-11 12:08 | XMS_ITS | Encounter Summary ---
Author Organization [facility] Address [address] [place] [address] Care Team Providers Care Assistant Head Cashier Name Role Phone Carlos Dougherty MD Primary Care Provider [phone] Encounter Details Date Type Department Care Team (Late st Contact Info) Description 12/17/1995 Orders Only [facility] [address] [place], [place] [id number] ProviderLorraine MD Social History Tobacco Use Types [...] Associated Diagnosis Comments GROSS + MICRO EXAM YANIV 12/17/1995 2: 30 PM CDT documented in this encounter Results * GROSS + MICRO EXAM (12/17/1995 2:30 PM CDT) Result CASE NUMBER [id number] Comment: ORDERING PHYSICIAN ??CHANNING GÓMEZ SPECIMEN TYPE ?Disc Tissue-L4-5 Preop Dx ? Left sciatica back pain Postop Dx ?See above Clinical Findings ?See above GROSS DESCRIPTION ? In histochoice labeled L4-5 disc are fibrillary montgomery-white tissue fragments aggregate volume about 2 cc's. ??Samples are submitted. ([facility])clw BLOCK ??A - Intervertebral disc, L4-5 Grossed by ? Stephanie Middleton M.D. MICROSCOPIC EXAMINATION ? Sections show unremarkable fibrocartilage consistent with nucleus pulposus. ??([facility])roro DIAGNOSIS ? Intervertebral disc, L4-5, excision - ? No pathologic diagnosis Read by ?Stephanie Middleton M.D. Released By ?STEPHANIE MIDDLETON MISCELLANEOUS SAMPLES / Unknown 12/17/1995 2:30 PM CDT 12/17/1995 2:30 PM CDT Historical Provider LAB - PATHOLOGY/C YTOLOGY ORDERABLES documented in this encounter Visit Diagnoses Not on filedocumented in this encounter Additional Health Concerns Infection Onset Date Last Indicated Resolved Time MRSA 01/23/2008 01/23/2008 03/16/2021 8:30 AM CAR HIKER documented as of this encounter Care Teams Assistant Head Cashier Relationship Specialty Start Date End Date Carlos Dougherty MD [address] [place] [address] PCP - General 10/10/07 10/14/12 documented as of this encounter
--- OUTSIDE RECORDS SUMMARY | 2024-05-11 12:08 | XMS_ITS | Encounter Summary ---
Author Organization [facility] Address [address] [place] [address] Care Team Providers Care Diesel Crane Operator Name Role Phone Carlos Dougherty MD Primary Care Provider [phone] Encounter Details Date Type Department Care Team (Latest Contact Info) Description 04/12/2008 12:26 PM PRESIDENT CEO & FOUNDER - 04/12/2008 11:59 PM [facility] Hospital Encounter [facility] Health Imaging Services - Radiology [address] [place] [address] Carlos Dougherty MD [address] [place] [address] [address] [place] [address] Radiology Diagnostic Discharge Disposition: Home or Self [...] 10 PO Take by mouth daily. 009 lansoprazole (PREVACID) 30 MG capsule Take 1 Cap by mouth daily before breakfast. 30 6 03/10/2008 04/14/2008 LASIX PO Take 20 mg by mouth daily. 05/27/2008 lisinopril (PRINIVIL; ZESTRIL) 40 MG tablet Take 10 mg by mouth daily. 04/19/2008 metoprolol succinate XL 24hr (TOPROL XL) 100 MG tablet Take 100 mg by mouth 2 times daily. 04/19/2008 phenazopyridine (PYRIDIUM) 100 MG tabletIndications:Dys uria Take 1 Tab by mouth 3 times daily as needed TAKE one or two tablets every 8 hrs as needed for urinary discomfort - do not take more than 2 days 12 0 02/10/2008 04/14/2008 propoxyphene napsylate-acetaminoph en (DARVOCET) 100-500 MG tablet [...] as of this encounter Progress Notes * Willow Molina - 04/13/2008 4:45 PM CSTQuick Note: Mehdi Starkey, pre-op already has these results. IDENT CEO & FOUNDER * Carlos Dougherty MD - 04/12/2008 5:20 PM CSTQuick Note: Negative. Copy to [facility] by faxing to [phone] IDENT CEO & FOUNDER documented in this encounter Miscellaneous Notes * Miscellaneous Scans - Document, Scanned - 04/12/2008 12:00 AM PRESIDENT CEO & FOUNDER * Miscellaneous Scans - Document, Scanned - 04/12/2008 12:00 AM PRESIDENT CEO & FOUNDER documented in this encounter Plan of Treatment Not on file documented as of this encounter Procedures Procedure Name Priority Date/Time Associated Diagnosis Comments XR CHEST 2VW Routine 04/12/2008 12:54 PM PRESIDENT CEO & FOUNDER Preoperative Examination documented in this encounter Results * XR CHEST PA AND LATERAL (CXR) (04/12/2008 12:54 PM PRESIDENT CEO & FOUNDER) Anatomical Region Laterality Modality Chest Radiographic Rivka ging 04/12/2008 1:30 PM PRESIDENT CEO & FOUNDER Impressions 04/12/2008 1:31 PM PRESIDENT CEO & FOUNDER NO ACTIVE DISEASE. Narrative 04/12/2008 1:31 PM PRESIDENT CEO & FOUNDER PA AND LATERAL CHEST: HISTORY: Preop. Preanesthesia [...] Time MRSA 01/23/2008 01/23/2008 03/16/2021 8:30 AM PRESIDENT CEO & FOUNDER documented as of this encounter Care Teams Diesel Crane Operator Relationship Specialty Start Date End Date Carlos Dougherty MD [address] [place] [address] PCP - General 10/10/07 10/14/12 documented as of this encounter
--- OUTSIDE RECORDS SUMMARY | 2024-05-11 12:08 | XMS_ITS | Encounter Summary ---
Author Organization [facility] Address [address] [place] [address] Care Team Providers Care Precision Millwright Name Role Phone Carlos Dougherty MD Primary Care Provider [phone] Reason for Visit * Reason Onset Date Comments Update 06/02/2008 Medication Issue 06/02/2008 Encounter Details Date Type Department Care Team (Late st Contact Info) Description 06/02/2008 Telephone [facility] - Internal Medicine [address] [place] [address] Carlos Dougherty MD [address] [place] [address] Update; Medication Issue Social History Tobacco Use Types Packs/Day Years [...] * Telephone Encounter - Willow Molina - 06/02/2008 9:36 AM CST Celeste nurse called back, she reviewed med list we have on file with meds pt is taking. Pt informed nurse that she is not taking Effexor XR, Prevacid, or Lunesta because of cost. Pt also stated she is not taking Lasix or potassium but that the doctor told her that was okay because feet are no longer swollen - nurse verified no swelling in lower extremities. UME DESIGN TEACHER * Telephone Encounter - Willow Molina - 06/02/2008 9:05 AM CST Pt was admitted to [facility] by Dr. Hernandez - s/p R knee revision 05/28/08. Home Health nurse Celeste calling for medical information on pt-needs med list, dx codes, etc. OV note from 04/12/08 faxed to [phone]. UME DESIGN TEACHER documented in this encounter Plan of Treatment Not on file documented as of this encounter Visit Diagnoses Not on filedocumented in this encounter Additional Health Concerns Infection Onset Date Last Indicated Resolved Time MRSA 01/23/2008 01/23/2008 03/16/2021 8:30 AM COSTUME DESIGN TEACHER documented as of this encounter Care Teams Precision Millwright Relationship Specialty Start Date End Date Carlos Dougherty MD [facility] [address] PCP - General 10/10/07 10/14/12 documented as of this encounter
--- OUTSIDE RECORDS SUMMARY | 2024-05-11 12:08 | XMS_ITS | Encounter Summary ---
Author Organization [facility] Address [address] [place] [address] Care Team Providers Care Orthotic Assistant Name Role Phone Carlos Dougherty MD Primary Care Provider [phone] Reason for Visit * Reason Onset Date Comments Letter for School or Work 03/02/2008 Encounter Details Date Type Department Care Team (Late st Contact Info) Description 03/02/2008 Telephone [facility] - Internal Medicine [address] [place] [address] Carlos Dougherty MD [address] [place] [address] Letter for School or Work Social History Tobacco Use Types Packs/Day Years [...] * Telephone Encounter - Chrystal Cummings - 03/02/2008 2:24 PM CDT [place] TAKING A TRIP AND NEEDS FORM TO GOT THROUGH TO THE PLANE TOLD TO CALL ORTHO documented in this encounter Plan of Treatment Not on file documented as of this encounter Visit Diagnoses Not on filedocumented in this encounter Additional Health Concerns Infection Onset Date Last Indicated Resolved Time MRSA 01/23/2008 01/23/2008 03/16/2021 8:30 AM MANAGER HYDRAULIC documented as of this encounter Care Teams Orthotic Assistant Relationship Specialty Start Date End Date Carlos Doughrety MD [address] [place] [address] PCP - General 10/10/07 10/14/12 documented as of this encounter
--- OUTSIDE RECORDS SUMMARY | 2024-05-11 12:08 | XMS_ITS | Encounter Summary ---
Author Organization [facility] Address [address] [facility] [place] [address] Care Team Providers Care Healthcare Economics Manager Name Role Phone Carlos Dougherty MD Primary Care Provider [phone] Encounter Details Date Type Department Care Team (Late st Contact Info) Description 05/14/2006 Orders Only [facility] - Laboratory [address] [place] [address] ProviderLorraine MD Social History Tobacco Use Types [...] Diagnosis Comments GROSS + MICRO EXAM YANIV 05/14/2006 12 :00 AM HOME HEALTH SPEECH THERAPIST documented in this encounter Results * GROSS + MICRO EXAM (05/14/2006 12:00 AM HOME HEALTH SPEECH THERAPIST) Result CASE NUMBER [id number] Comment: ORDERING [...] Released By ?QUIQUE LANGE CPT Code ? 71760 X 2 MISCELLANEOUS SAMPLE S / Unknown 05/14/2006 05/15/2006 7:10 AM HOME HEALTH SPEECH THERAPIST Historical Provider LAB - PATHOLOGY/C YTOLOGY ORDERABLES documented in this encounter Visit Diagnoses Not on filedocumented in this encounter Additional Health Concerns Infection Onset Date Last Indicated Resolved Time MRSA 01/23/2008 01/23/2008 03/16/2021 8:30 AM HOME HEALTH SPEECH THERAPIST documented as of this encounter Care Teams Healthcare Economics Manager Relationship Specialty Start Date End Date Carlos Dougherty MD [address] [place] [address] PCP - General 10/10/07 10/14/12 documented as of this encounter
--- OUTSIDE RECORDS SUMMARY | 2024-05-11 12:08 | XMS_ITS | Encounter Summary ---
Author Organization [facility] Address [address] [facility] [place] [address] Care Team Providers Care Guide Dog Trainer Name Role Phone Carlos Dougherty MD Primary Care Provider [phone] Encounter Details Date Type Department Care Team (Late st Contact Info) Description 09/05/2000 Orders Only [facility] - Laboratory [address] [place] [address] ProviderLorraine MD Social History Tobacco Use [...] Diagnosis Comments GROSS + MICRO EXAM YANIV 09/05/2000 12 :00 AM CDT documented in this encounter Results * GROSS + MICRO EXAM (09/05/2000 12:00 AM CDT) Result CASE NUMBER [id number] Comment: ORDERING PHYSICIAN ??THIEN ARMANDO SPECIMEN TYPE ?Tissue-2nd toe, rt foot Surgeon ?THIEN ARMANDO M.D. Gross Exam ? Dr. Ana Meyer M.D. Gross Report ? INDICATION FOR PROCEDURE ??SYMPTOMATIC HARDWARE RIGHT HEEL, MASS 2ND TOE RIGHT OPERATION ??HARDWARE REMOVAL RIGHT CALCANEOUS, EXCISION OF MASS SECOND TOE RIGHT FOOT SPECIMEN ??MASS SECOND TOE RIGHT FOOT GROSS ?? THE SPECIMEN IS RECEIVED IN A CONTAINER LABELED WITH THE PATIENT'S NAME AHSAN HANEY AND IDENTIFIED MASS SECOND TOE RIGHT FOOT . ?? THE SPECIMEN CONSISTS OF ROUGHLY ROUND FRAGMENT OF WHITE THICKENED SKIN WITH A IRREGULAR SURFACE. ??THE SPECIMEN MEASURES 9 X 8 MM. ?? THE MARGINS OF RESECTION ARE INKED. ??THE SPECIMEN IS SUBMITTED IN ENTIRETY IN ONE CASSETTE. SL/DC MICROSCOPIC EXAM ? MICROSCOPIC ?? MICROSCOPIC EXAMINATION REVEALS A CUTANEOUS TISSUE FRAGMENT WITH ACANTHOSIS, HYPERKERATOSIS, PARAKERATOSIS AND HYPERGRANULOSIS. ?? ELONGATION OF RETE RIDGES IS SEEN. ??NORMAL MATURATION IS NOTED. ??NO MALIGNANCY IS SEEN. DIAGNOSIS ? DIAGNOSIS ?? [1] ??CUTANEOUS TISSUE, 2ND TOE, RIGHT, EXCISION -- ?? [place] [id number] Released By ?JOSIE WANG MISCELLANEOUS SAMPLE S / Unknown 09/05/2000 09/05/2000 10:38 AM CDT Historical Provider LAB - PATHOLOGY/C YTOLOGY ORDERABLES documented in this encounter Visit Diagnoses Not on filedocumented in this encounter Additional Health Concerns Infection Onset Date Last Indicated Resolved Time MRSA 01/23/2008 01/23/2008 03/16/2021 8:30 AM SUPERVISOR NUT PROCESSING documented as of this encounter Care Teams Guide Dog Trainer Relationship Specialty Start Date End Date Carlos Dougherty MD [address] [place] [address] PCP - General 10/10/07 10/14/12 documented as of this encounter
--- OUTSIDE RECORDS SUMMARY | 2024-05-11 12:09 | XMS_ITS | Encounter Summary ---
Author Organization [facility] Address [address] [facility] [place] [address] [place] [address] Care Team Providers Care Criminology Professor Name Role Phone Jacki Cabrera MD Primary Care Provider Juvenal Sparrow MD Unavailable [phone] Encounter Details Date Type Department Care Team (Late st Contact Info) Description 01/04/2016 Orders Only [facility] [place], [place] [address] , Generic Conversion, Social History Tobacco Use Types Packs/Day Years Used Date Smoking Tobacco: Former Comments Unknown Sex and Gender Information Value Date Recorded Sex Assigned at Not on file Legal Sex Female 9:30 PM CDT Gender Identity Not on file Sexual Orientation Not on file documented as of this encounter Plan of Treatment Not on file documented as of this encounter Procedures Procedure Name Priority Date/Time Associated Diagnosis Comments POCT GLUCOSE - EAST DOCKED DEVICE Routine 01/04/2016 6:50 AM CDT documented in this encounter Results * POCT glucose (01/04/2016 6:50 AM CDT) GLUCOSE POC 93 70 - 109 01/04/2016 6:53 AM CDT [facility] ORDERS INTERFACE WHOLE BLOOD SPECIMEN / Unknown 01/04/2016 6:50 AM CDT 01/04/2016 6:53 AM CDT us Generic Conversion Md BREEN POCT ORDERABLES - DEVIC E Final Result [facility] ORDERS INTERFACE US documented in this encounter Visit Diagnoses Not on filedocumented in this encounter Additional Health Concerns Infection Onset Date Last Indicated Resolved Time MRSA 03/29/2017 03/29/2017 documented as of this encounter Care Teams Criminology Professor Relationship Specialty Start Date End Date Jacki Cabrera MD [address] [address] PCP - General INTERNAL MEDICINE 12/05/16 Juvenal Sparrow MD [address] [place] [address] [employer] Research Director CARDIOVASCULAR DISEASE 12/05/16 11/18/22 documented as of this encounter
--- OUTSIDE RECORDS SUMMARY | 2024-05-11 12:09 | XMS_ITS | Encounter Summary ---
Author Organization [facility] Address [address] [place] [address] [place] [address] Care Team Providers Care Seafood Preparer Name Role Phone Jacki Cabrera MD Primary Care Provider Juvenal Sparrow MD Unavailable [phone] Reason for Visit * Reason Comments Pre-Op Exam req Dr Bj bridges, to have ankle fusion, hypertension Encounter Details Date Type Department Care Team (Latest Contact Info) Description 12/25/2016 1:00 PM CDT Office Visit [facility] [address] [place] [address] Juvenal Sparrow MD [address] [place] [address] Pre-Op Exam (req Dr Bj Abbott, to have ankle fusion, hypertension) Social History Tobacco Use Types Packs/Day Years Used Date Smoking Tobacco: Former Smokeless Tobacco: Never Alcohol Use Standard Drinks/Week Comments No 0 (1 standard drink = 0.6 oz pur e alcohol) Comments Unknown Sex and Gender Information Value Date Recorded Sex Assigned at Not on file Legal Sex Female 9:30 PM CDT Gender Identity Not on file Sexual Orientation Not on file Occupation Industry Job Start Date Job End 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 Not on file Not on file Not on file documented as of this encounter Last Filed Vital Signs Vital Sign Reading Time Taken Comments Blood Pressure 122/78 12/25/2016 1:04 PM CDT Pulse 64 12/25/2016 1:04 PM CDT Temperature - - Respiratory Rate 14 12/25/2016 1:04 PM CDT Oxygen Saturation - - Inhaled Oxygen Concentration - - Weight 102.5 kg (226 lb) 12/25/2016 1:04 PM CDT Height 172.7 cm (5' 8 ) 12/25/2016 1:04 PM CDT Body Mass Index 34.36 12/25/2016 1:04 PM CDT documented in this encounter Progress Notes * Juvenal Sparrow MD - 12/25/2016 1:24 PM CDT REASON FOR VISIT: Preoperative cardiac risk assessment prior to right ankle fusion HISTORY OF PRESENT ILLNESS: This 61-year-old patient is seen with the current medical problem list: 1. Hyperlipidemia 2. Hypertension 3. Type 2 diabetes mellitus 4. GERD 5. Sleep apnea on CPAP 6. Arthritis 7. Psoriasis 8. L4-L5 rupture, s/p surgery in 1995 9. Restless legs syndrome 10. Anxiety and depression 11. Obesity, s/p gastric bypass surgery 12. Vitamin D deficiency 13. Former smoker 14. Family history of heart disease 15. Surgeries: Right ankle fusion in 2015, gastric bypass in 2014, right knee replacement in 2007 and 2014, skin tag removal in 2013, right knee repair in 2008, left knee replacement in 2005, cyst and ovaries removed in 2003, right ankle hardware removed in 1999, right ankle surgery in 1998, right knee surgery in 1996, rupture L4-L5 surgery in 1995, left knee surgery in 1995, left foot bunionectomy in 1993, breast reduction in 1993, partial hysterectomy in 1988, tubal ligation in 1976 The patient had the right ankle fused in 2015 and now needs further treatment above that. It is scheduled for 01/02/2017. She recently had an EKG done that showed sinus rhythm at 64 beats per minute and is a normal EKG. The patient tolerates surgery and has no complications from surgery. She gives no symptoms for unstable angina, heart failure, cardiac arrhythmia or transient ischemic attack. Over the years, she has dieted from 360 lbs down to 226 lbs. RECOMMENDATIONS: I congratulated the patient on her slow weight loss. She represents a mild to moderate risk for right ankle fusion surgery by Dr. Abbott. I discussed a healthy heart diet and exercise with the patient. [place] goals for long-term cardiovascular risk factor modification would be an LDL cholesterol of less than 70 mg/dL, blood pressure of 130/80 mmHg or better and hemoglobin A1C of less than 7%. residential, I would recommend keeping the potassium between 4.0 and 5.0 mEq/L and magnesium above 2.0 mg/dL. All questions were answered, and the patient verbalized understanding. We willsee her in the future when requested. * Juvenal Sparrow MD - 12/25/2016 1:00 PM CDT Reason for Visit: Pre-Op Exam (req Dr Bj Abbott, to have ankle fusion, hypertension) History of Present Illness: Recommendations and Plan: Medications: Current Outpatient Prescriptions: ??? B Complex-Folic Acid (B COMPLEX FORMULA 1) Tab, Take 1 tablet by mouth daily., Disp: , Rfl: ??? Cholecalciferol (VITAMIN D3) 33838 UNITS Tab, Take by mouth daily., Disp: , Rfl: ??? cyanocobalamin 1000 MCG/ML injection, every 30 (thirty) days., Disp: , Rfl: ??? folic acid 1 MG tablet, Take 1 tablet by mouth daily., Disp: , Rfl: ??? lisinopril-hydrochlorothiazide 20-25 MG tablet, Take 1 tablet by mouth daily., Disp: , Rfl: ??? methotrexate 2.5 MG tablet, Take 8 tablets by mouth once a week., Disp: , Rfl: ??? Vitamin K, Phytonadione, 100 MCG Tab, Take by mouth daily., Disp: , Rfl: ??? CALCIUM OR, Take 500 mg by mouth 3 (three) times daily., Disp: , Rfl: ??? duloxetine 30 MG capsule, Take 90 mg by mouth daily., Disp: , Rfl: ??? gabapentin 600 MG tablet, Take 1 tablet by mouth 3 (three) times daily., Disp: , Rfl: ??? lovastatin 20 MG tablet, Take 1 tablet by mouth daily., Disp: , Rfl: ??? Multiple Vitamins-Iron (MULTI-VITAMIN/IRON) Tab, Take 1 tablet by mouth 2 (two) times daily., Disp: , Rfl: ??? omeprazole 20 MG capsule, Take 1 capsule by mouth daily., Disp: , Rfl: ??? trazodone 100 MG tablet, Take 1 tablet by mouth nightly at bedtime., Disp: , Rfl: ??? zolpidem 5 MG tablet, Take 1 tablet by mouth nightly at bedtime., Disp: , Rfl: Allergies Allergen Reactions ??? Penicillins Rash and Shortness of Breath Past Medical History: Diagnosis Date ??? Anxiety and depression ??? Arthritis ??? Family history of heart disease ??? Former smoker ??? GERD (gastroesophageal reflux disease) ??? Hyperlipidemia ??? Hypertension ??? Obesity s/p gastric bypass surgery ??? Obstructive sleep apnea on CPAP ??? Psoriasis ??? Restless legs syndrome ??? Ruptured lumbar disc L4-L5, s/p surgery in 1995 ??? Type 2 diabetes mellitus ??? Vitamin D deficiency Past Surgical History: Procedure Laterality Date ??? ANKLE SURGERY Right 1998 ??? FUSION OF ANKLE JOINT Right 2015 ??? GASTRIC BYPASS 2014 ??? HARDWARE REMOVAL FOOT / ANKLE Right 1999 ??? HYSTERECTOMY 1989 partial ??? KNEE SURGERY Right 2009 knee repair ??? KNEE SURGERY Right 1996 ??? PARTIAL REMOVAL OF OVARY(S) Bilateral 2003 ??? SKIN TAG REMOVAL 2013 ??? SPINE SURGERY 1996 L4-L5 for ruptupred discs ??? TOTAL KNEE ARTHROPLASTY Right 2014 ??? TOTAL KNEE ARTHROPLASTY Right 2007 ??? TOTAL KNEE ARTHROPLASTY Left 2005 ??? TUBAL LIGATION 1976 Social History Social History ??? Marital status: Spouse name: N/A ??? Number of children: N/A ??? Years of education: N/A Occupational History ??? 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 Smoking status: Former Smoker ??? Smokeless tobacco: Never Used ??? Alcohol use No ??? Drug use: No ??? Sexual activity: Not Asked Other Topics Concern ??? Exercise No ??? Caffeine Concern Yes Drinks 3 cups of coffee daily Social History Narrative Family History Problem Relation Age of Onset ??? pneumonia [OTHER] Mother ??? Coronary artery disease Father ??? COPD Father ??? Diabetes Father ??? Glaucoma Other ??? Coronary artery disease Other Family Status Relation Status ??? Mother at age 63 ??? Father at age 83 ??? Other Alive ??? Other Alive Review of Systems Constitutional: Positive for weight loss (intentional). Negative for recent unintentional weight gain and new or significant fatigue. HENT: Negative for new or significant hearing loss. Eyes: Negative for blurred vision and double vision. Respiratory: Negative for cough, new or significant shortness of breath and snoring. Cardiovascular: See HPI Gastrointestinal: Negative for blood in stool and melena. Genitourinary: Negative for dysuria. Musculoskeletal: Positive for joint stiffness/pain. Negative for myalgias. Skin: Negative for rash. Neurological: Negative for tingling/numbness and focal weakness. Endo/Heme/Allergies: Negative for new or significant bruising/bleeding and polydipsia. Psychiatric/Behavioral: Negative for depression and new or significant memory loss. Filed Vitals: 12/25/16 1304 BP: 122/78 Pulse: 64 Resp: 14 Weight: 102.5 kg (226 lb) Height: 5' 8 (1.727 m) Physical Exam Constitutional: She is oriented to person, place, and time. She appears well- developed and well-nourished. No distress. Obesity HENT: Nose: No mucosal edema. Mouth/Throat: Oropharynx is clear and moist and mucous membranes are normal. No oropharyngeal exudate. Neck: Neck supple. No JVD present. Carotid bruit is not present. Cardiovascular: Normal rate, regular rhythm, S1 normal, S2 normal and intact distal pulses. No extrasystoles are present. Exam reveals no gallop. No murmur heard. Pulmonary/Chest: Effort normal and breath sounds normal. No respiratory distress. Abdominal: She exhibits no mass. There is no hepatosplenomegaly. There is no tenderness. Musculoskeletal: She exhibits no deformity. Brace on right ankle Neurological: She is alert and oriented to person, place, and time. Right-handed Skin: Skin is warm and dry. No erythema. Psychiatric: She has a normal mood and affect. Her behavior is normal. Thought content normal. Diagnoses/Impression: 1. Preop cardiovascular exam 2. Essential hypertension 3. Mixed hyperlipidemia documented in this encounter Plan of Treatment Not on file documented as of this encounter Visit Diagnoses Diagnosis Preop cardiovascular exam- Primary Pre-operative cardiovascular examination Essential hypertension Unspecified essential hypertension Mixed hyperlipidemia documented in this encounter Care Teams Seafood Preparer Relationship Specialty Start Date End Date Jacki Cabrera MD [address] [facility] [address] [place] [address] PCP - General INTERNAL MEDICINE 12/05/16 Juvenal Sparrow MD [address] [place] [address] [place] Bone Tender CARDIOVASCULAR DISEASE 12/05/16 11/18/22 documented as of this encounter
--- OUTSIDE RECORDS SUMMARY | 2024-05-11 12:09 | XMS_ITS | Encounter Summary ---
Author Organization [facility] Address [facility] [facility] [place] [address] [place] [address] Care Team Providers Care Senior Front End Web Developer Name Role Phone Jacki Cabrera MD Primary Care Provider Juvenal Sparrow MD Unavailable [phone] Encounter Details Date Type Department Care Team (Late st Contact Info) Description 01/04/2016 Orders Only [place] [address] , Generic Conversion, Social History Tobacco Use [...] Procedure Name Priority Date/Time Associated Diagnosis Comments CULTURE, BODY FLUID W/ GRAM STAIN Nurse Collected Priority 01/04/2016 2:40 PM CDT documented in this encounter Results * CULTURE, BODY FLUID W/ GRAM STAIN (01/04/2016 2:40 PM CDT) SPEC DESCRIPTION BODY FLUID 01/04/2016 2:41 PM CDT [facility] SPECIAL REQUESTS NO SPECIAL REQUEST 01/04/2016 2:41 PM CDT [facility] GRAM STAIN RESULT NO POLYS OR ORGANISMS SEEN 01/05/2016 8:18 AM CDT [facility] CULTURE RESULT NO GROWTH 5 DAYS 01/09/2016 10:29 AM CDT [facility] BODY FLUID SPECIMEN / Unknown 01/04/2016 2:40 PM CDT 01/04/2016 3:32 PM CDT Comment:SYNOVIAL FLUID~KNEE~ LEFT~SYRINGE us Generic Conversion Md [facility] - GENERAL ORDERABLES Final Result Performing Organization Address City/State/[facility] Co de Phone Number [facility] [address] [place] [address], [id number] documented in this encounter Visit Diagnoses Not on filedocumented in this encounter Additional Health Concerns Infection Onset Date Last Indicated Resolved Time MRSA 03/29/2017 03/29/2017 documented as of this encounter Care Teams Senior Front End Web Developer Relationship Specialty Start Date End Date Jacki Cabrera MD [address] [facility] [address] [place] [address] PCP - General INTERNAL MEDICINE 12/05/16 Juvenal Sparrow MD [address] [place] [address] [place] Special Class Welder CARDIOVASCULAR DISEASE 12/05/16 11/18/22 documented as of this encounter
--- OUTSIDE RECORDS SUMMARY | 2024-05-11 12:09 | XMS_ITS | Encounter Summary ---
Author Organization [facility] Address [facility] [facility] [place] [address] [place] [address] Care Team Providers Care Electroplating Worker Name Role Phone Jacki Cabrera MD Primary Care Provider Juvenal Sparrow MD Unavailable [phone] Reason for Visit * Reason Comments Echo (SCAN) Encounter Details Date Type Department Care Team (Late st Contact Info) Description 12/06/2016 Scan [facility] [address] [place] [address] Scanned, Documents Echo (SCAN) Social History Tobacco Use Types Packs/Day Years Used Date Smoking Tobacco: Former Alcohol Use Standard Drinks/Week Comments No 0 [...] Procedure Name Priority Date/Time Associated Diagnosis Comments ECHO GENERIC (SCAN ORDER) Routine 12/06/2016 documented in this encounter Results * ECHO (12/06/2016) Anatomical Region Laterality Modality Other us Documents Scanned SCANNING Final Result documented in this encounter Visit Diagnoses Not on filedocumented in this encounter Care Teams Electroplating Worker Relationship Specialty Start Date End Date Jacki Cabrera MD [address] [address] PCP - General INTERNAL MEDICINE 12/05/16 Juvenal Sparrow MD [address] [place] [address] [place] Ground Control Approach Technician CARDIOVASCULAR DISEASE 12/05/16 11/18/22 documented as of this encounter
--- OUTSIDE RECORDS SUMMARY | 2024-05-11 12:09 | XMS_ITS | Encounter Summary ---
Author Organization [facility] Address [address] [place] [address] [place] [address] Care Team Providers Care Education And Outreach Coordinator Name Role Phone Jacki Cabrera MD Primary Care Provider Juvenal Sparrow MD Unavailable [phone] Encounter Details Date Type Department Care Team (Late st Contact Info) Description 01/04/2016 Orders Only [facility] [address] [place], [place] [address] , Generic Conversion, Social History Tobacco Use [...] Date/Time Associated Diagnosis Comments BASIC METABOLIC PANEL TIMED 01/04/2016 3:41 AM CDT documented in this encounter Results * (ABNORMAL) BASIC METABOLIC PANEL (01/04/2016 3:41 AM CDT) SODIUM S/P/B 137 135 - 147 MMOL/L 01/04/2016 4:25 AM CDT [facility] POTASSIUM S/P/B 4.0 3.5 - 5.0 MMOL/L 01/04/2016 4:25 AM CDT [facility] Comment:SLIGHT HEMOLYSIS, RE SULT MAY BE AFFECTED. CHLORIDE S/P/B 103 98 - 107 MMOL/L 01/04/2016 4:25 AM CDT [facility] CO2 31.5(H) 22 - 29 MMOL/L 01/04/2016 4:25 AM CDT [facility] GLUCOSE 95 70 - 109 MG/DL 01/04/2016 4:25 AM CDT [facility] BUN 7(L) 10 - 20 MG/DL 01/04/2016 4:25 AM CDT [facility] CREATININE S/P/B 0.64 0.60 - 1.10 MG/DL 01/04/2016 4:25 AM CDT [facility] CALCIUM S/P/B 10.1 8.4 - 10.2 MG/DL 01/04/2016 4:25 AM CDT [facility] EGFR NON-AFR. AMER. 95 >60 ML/MIN/1.7 3 M2 01/04/2016 4:25 AM CDT [facility] EGFR AFR. AMER. 116 >60 ML/MIN/1.7 3 M2 01/04/2016 4:25 AM CDT [facility] ANION GAP 2.5 MMOL/L 01/04/2016 4:25 AM CDT [facility] OSMOLALITY (CALC) 272 MOSM/KG 01/04/2016 4:25 AM CDT [facility] PLASMA SPECIMEN / Unknown 01/04/2016 3:41 AM CDT 01/04/2016 3:43 AM CDT us Generic Conversion Md [facility] Final R esult [facility] [place] [address], [id number] documented in this encounter Visit Diagnoses Not on filedocumented in this encounter Additional Health Concerns Infection Onset Date Last Indicated Resolved Time MRSA 03/29/2017 03/29/2017 documented as of this encounter Care Teams Education And Outreach Coordinator Relationship Specialty Start Date End Date Jacki Cabrera MD [address] [address] PCP - General INTERNAL MEDICINE 12/05/16 Juvenal Sparrow MD [address] [place] [address] [place] [employer] Strength Inspector CARDIOVASCULAR DISEASE 12/05/16 11/18/22 documented as of this encounter
--- OUTSIDE RECORDS SUMMARY | 2024-05-11 12:09 | XMS_ITS | Encounter Summary ---
Author Organization [facility] Address [address] [place] [address] [place] [address] Care Team Providers Care Mini Bar Attendant Name Role Phone Jacki Cabrera MD Primary Care Provider Juvenal Sparrow MD Unavailable [phone] Reason for Visit * Reason Onset Date Comments Surgical Clearance 12/05/2016 ankle fusion Encounter Details Date Type Department Care Team (Late st Contact Info) Description 12/05/2016 Telephone [facility] [address] [place] [address] Juvenal Sparrow MD [address] [place] [address] Surgical Clearance (ankle fusion) Social History Tobacco Use Types Packs/Day Years Used Date Smoking Tobacco: Former Comments Unknown Sex and Gender Information Value Date Recorded Sex Assigned at Not on file Legal Sex Female 9:30 PM CDT Gender Identity Not on file Sexual Orientation Not on file documented as of this encounter Progress Notes * Sheryl Lugo RN - 12/06/2016 8:57 AM CDT EKG order faxed to [facility] documented in this encounter Plan of Treatment Not on file documented as of this encounter Visit Diagnoses Diagnosis Pre-operative cardiovascular examination- Primary documented in this encounter Care Teams Mini Bar Attendant Relationship Specialty Start Date End Date Jacki Cabrera MD [address] [address] PCP - General INTERNAL MEDICINE 12/05/16 Juvenal Sparrow MD [address] [place] [address] [place] Fuel Cell Technician CARDIOVASCULAR DISEASE 12/05/16 11/18/22 documented as of this encounter
--- OUTSIDE RECORDS SUMMARY | 2024-05-11 12:09 | XMS_ITS | Encounter Summary ---
Author Organization [facility] Address [address] [place] [address] [place] [address] Care Team Providers Care Branch Maker Name Role Phone Jacki Cabrera MD Primary Care Provider Lee Tomas MD Unavailable [phone] Carol Bryant MD Unavailable [phone] Reason for Visit * Auth/Cert (Routine) Specialty Diagnoses / Procedures Referred By Calvin bentley Referred To Contact Diagnoses STRESS INCONTINENCE, FEMALE, OVERACTIVE BLADDER, SENSORY URGE INCONTINENCE N39.3, N32.81, N39.41 Procedures EXCISION OF EXPOSED URETHRAL SLING BULKING AGENT AND CYSTOSCOPY Nichol Mcgee MD [address] [place] [address] Phone: tel: fax: Referral ID Status Reason Start Date Expiration Date Visits Re quested Visits Authorized [id number] 1 1 Encounter Details Date Type Department Care Team (Latest Contact Info) Description 11/22/2022 7:14 AM CDT - 11/22/2022 11:45 AM CDT Hospital Encounter [facility] [place], [place] [address] Nichol Mcgee MD [address] [place] [address] Discharge Disposition: Home or Self Care (Routine Discharge) Social History Tobacco Use Types Packs/Day Years Used Date Smoking Tobacco: Every Day Cigarettes Smokeless Tobacco: Never Tobacco Cessation:Ready to Q uit: Not Asked; Counseling Given: Not Answered Comments:2 cigs/day off and on smoker for 30 yrs Alcohol Use Standard Drinks/Week Comments No 0 (1 standard drink = 0.6 oz pur e alcohol) Comments No Sex and Gender Information Value Date Recorded [...] Sign Reading Time Taken Comments Blood Pressure 120/75 11/22/2022 11:30 AM CDT Pulse 75 11/22/2022 11:30 AM CDT Temperature 36.2 ??C (97.2 ??F) 11/22/2022 1 1:30 AM CDT Respiratory Rate 16 11/22/2022 11:3 0 AM CDT Oxygen Saturation 100% 11/22/2022 11: 30 AM CDT Inhaled Oxygen Concentration - - Weight 105.7 kg (233 lb 0.4 oz) 11/22/2022 8:00 AM CDT Height 172.7 cm (5' 8 ) 11/22/2022 8:00 AM CDT Body Mass Index 35.43 11/22/2022 8:00 AM CDT documented in this encounter Discharge Instructions * Discharge Instructions* Alma Wood RN - 11/22/2022 10:43 AM CDT If you have chest pain, shortness of breath, calf pain, excessive bleeding or drainage, if you cannot hold down anything to eat or drink, or if you cannot urinate, please call 911 or go to the nearest emergency room. If you have fever, pain not controlled by your medication, signs of infection such as redness or discharge or swelling at the site, or any other questions or concerns, please call your surgeon. Because you had anesthesia, we suggest these things: -Avoid greasy, fried or spicy foods for today -Take medication with food -Take an over the counter stool softener if needed for constipation while taking pain medication -Have a responsible adult stay with you the rest of today and overnight -No alcohol, driving, making major decision or operating machinery for 24 hours or while taking pain medication * Attachments The following attachments cannot be sent through Care Everywhere. * Urethral Suspension Discharge Instructions (Croatian) * Phenazopyridine, ADULT (Croatian) * General Anesthesia Discharge Instructions (Croatian) documented in this encounter Medications at Time of Discharge calcitriol (ROCALTROL) 0.25 MCG capsule Take 1 capsule (0.25 mcg total) by mouth daily. Dapagliflozin Propanediol (FARXIGA) 5 MG Tab Take 1 tablet by mouth daily. docusate sodium (COLACE) 100 MG capsule Take 1 capsule (100 mg total) by mouth 2 (two) times daily. duloxetine 30 MG capsule Take 4 capsules (120 mg total) by mouth daily. 12/13/2016 FIBER ADULT GUMMIES OR Take 1 chewable tablet by mouth daily as needed (constipation) . folic acid 1 MG tablet Take 1 tablet (1 mg total) by mouth daily. 10/28/2014 gabapentin 600 MG tablet Take 1 tablet (600 mg total) by mouth 3 (three) times daily. 12/10/2016 lisinopril-hydroc hlorothiazide 20-25 MG tablet Take 1 tablet by mouth daily. lovastatin 20 MG tablet Take 1 tablet (20 mg total) by mouth nightly. 11/17/2016 methotrexate 2.5 MG tablet Take 8 tablets (20 mg total) by mouth once a week. Tuesdays05/18/2014 Multiple Vitamins-Iron (MULTI-VITAMIN/IR ON) Tab Take 1 tablet by mouth daily. omeprazole 20 MG capsule Take 1 capsule (20 mg total) by mouth nightly. 10/21/2016 ondansetron (ZOFRAN) 4 MG tablet Take 1 tablet (4 mg total) by mouth every 8 (eight) hours as needed. OZEMPIC, 0.25 OR 0.5 MG/DOSE, 2 MG/3ML injection (PEN) Inject 0.5 mg into the skin every 7 days. 10/10/2022 predniSONE (DELTASONE) 5 mg tablet Take 1 tablet (5 mg total) by mouth daily. QUEtiapine (SEROQUEL) 100 MG tablet Take 1 tablet (100 mg total) by mouth nightly at bedtime. sulfaSALAzine (AZULFIDINE) 500 MG tablet Take 1 tablet (500 mg total) by mouth 2 (two) times daily. TALTZ 80 MG/ML Solution Auto-injector Inject 80 mg as directed every 30 (thirty) days. vortioxetine (TRINTELLIX) 5 MG tablet Take 1 tablet (5 mg total) by mouth daily. zolpidem 5 MG tablet Take 2 tablets (10 mg total) by mouth nightly at bedtime. 11/26/2016 phenazopyridine (PYRIDIUM) 100 MG tablet Take 1 tablet (100 mg total) by mouth 3 (three) times daily as needed for Pain. 15 tablet 11/22/2022 documented as of this encounter H&P Notes * Nichol Mcgee MD - 11/22/2022 9:28 AM CDT HISTORY AND PHYSICAL INTERVAL NOTE: I have reviewed Karolina Ramos History & Physical which was performed within the past 30 days. After examining Karolina Ramos, no change has occurred in the patient's condition since the H&P was completed. Informed Consent Discussion: Potential benefits, risks, and side effects of the patient's procedure/surgery; the likelihood of the patient achieving his or her goals; and any potential problems that might occur during recuperation were discussed with the patient/family/personal branch customer service representative. Reasonable alternatives to the patient's proposed procedure/surgery including benefits, risks, and side effects related to the alternatives and the risks related to not receiving the proposed care were also discussed with the patient/family/personal branch customer service representative. Questions were answered and the patient/family/personal branch customer service representative verbalized understanding and desires to proceed. Source Note - Nichol Mcgee MD - 11/18/2022 7:53 PM CDT Attending Provider: No att. providers found PCP: MD Karolina CASTRO is an 67-year-old female. Reason for Admission: * No active hospital problems. * HPI: She has mixed incontinence. She is received Botox in the past for urge incontinence. She would a sling done by another physician for stress incontinence. It is exposed in the midline. She has continued stress incontinence. She is here today for excision of her sling and a bulking agent. She understands this will not address her overactive bladder symptoms Past Medical History: Diagnosis Date Anxiety and depression Arthritis Family history of heart disease Former smoker GERD (gastroesophageal reflux disease) Hyperlipidemia Hypertension Obesity s/p gastric bypass surgery Obstructive sleep apnea on CPAP Psoriasis Restless legs syndrome Ruptured lumbar disc L4-L5, s/p surgery in 1995 Type 2 diabetes mellitus ([facility]) Vitamin D deficiency Allergies: Allergies Allergen Reactions Penicillins Rash and Shortness of Breath Social History Tobacco Use Smoking status: Former Smokeless tobacco: Never Substance Use Topics Alcohol use: No Past Surgical History: Procedure Laterality Date ANKLE SURGERY Right 1999 FUSION OF ANKLE JOINT Right 2016 GASTRIC BYPASS 2015 HARDWARE REMOVAL FOOT / ANKLE Right 2000 HYSTERECTOMY 1989 partial KNEE SURGERY Right 2009 knee repair KNEE SURGERY Right 1997 PARTIAL REMOVAL OF OVARY(S) Bilateral 2004 SKIN TAG REMOVAL 2014 SPINE SURGERY 1996 L4-L5 for ruptupred discs TOTAL KNEE ARTHROPLASTY Right 2015 TOTAL KNEE ARTHROPLASTY Right 2008 TOTAL KNEE ARTHROPLASTY Left 2006 TUBAL LIGATION 1977 Family History Problem Relation Name Age of Onset Other (pneumonia) Mother Coronary artery disease Father COPD Father Diabetes Father Glaucoma Other Grandparent Coronary artery disease Other Sibling Travel Exposure: Current Outpatient Medications on File Prior to Visit Medication Sig B Complex-Folic Acid (B COMPLEX FORMULA 1) Tab Take 1 tablet by mouth daily. CALCIUM OR Take 500 mg by mouth 3 (three) times daily. Cholecalciferol (VITAMIN D3) 72995 UNITS Tab Take by mouth daily. cyanocobalamin 1000 MCG/ML injection every 30 (thirty) days. duloxetine 30 MG capsule Take 90 mg by mouth daily. folic acid 1 MG tablet Take 1 tablet by mouth daily. gabapentin 600 MG tablet Take 1 tablet by mouth 3 (three) times daily. lisinopril-hydrochlorothiazide 20-25 MG tablet Take 1 tablet by mouth daily. lovastatin 20 MG tablet Take 1 tablet by mouth daily. methotrexate 2.5 MG tablet Take 8 tablets by mouth once a week. Multiple Vitamins-Iron (MULTI-VITAMIN/IRON) Tab Take 1 tablet by mouth 2 (two) times daily. omeprazole 20 MG capsule Take 1 capsule by mouth daily. trazodone 100 MG tablet Take 1 tablet by mouth nightly at bedtime. Vitamin K, Phytonadione, 100 MCG Tab Take by mouth daily. zolpidem 5 MG tablet Take 1 tablet by mouth nightly at bedtime. No current facility-administered medications on file prior to visit. There were no vitals taken for this visit. ROS negative Physical Exam No acute distress Normal breathing Alert oriented x3 Mesh exposed her in the midline Assessment: Vaginal mesh extrusion Intrinsic sphincter deficiency Plan: Will plan on segmental mesh excision. Will perform a bulking agent at the same time. She understands risks of bleeding, infection, damage to urinary tract, inability to remove the mesh. Recurrent mesh, recurrent or persistent stress incontinence, need for ancillary procedures, need for catheterization for urinary retention. She agrees to proceed NICHOL MCGEE MD 11/18/2022 documented in this encounter OR Notes * Op Note - Nichol Mcgee MD - 11/22/2022 10:19 AM CDT Preop diagnosis: Erosion of the vaginal mesh into the vagina, intrinsic suture deficiency Postop diagnosis: Same Procedure performed: Excision of exposed vaginal mesh, cystoscopy with suburethral injection of implant material Anesthesia: MAC and local Complications: None Blood loss: Minimal Indications this is a woman who had a urethral sling done by another physician. It is exposed to the midline. She has continued stress incontinence. She has urge incontinence as well. She would like the vaginal mesh exposure addressed as well as something done for her stress incontinence. We will perform the above procedure. She understands it will not help her overactive bladder symptoms. She understands risk of bleeding, infection, damage to the urinary tract, inability to the mesh, recurrentmesh exposure, continued stress incontinence, recurrent stress incontinence, obstructive voiding requiring catheterization. She agrees to proceed Description: She is correctly notified. Informed consent was obtained. She brought the operating room. She was given MAC anesthesia. She was placed in dorsolithotomy position. She is prepped and draped in sterile fashion. Timeout was performed. She was given appropriate perioperative antibiotics. I anesthetized the skin and placed a [place] retractor. I grasped the small area of vaginal mesh exposure to the midline. I dissected out laterally and removed dissection. There is no other exposed mesh in the vagina or sulcus. I closed the small incision with a interrupted 2-0 Vicryl suture. I then turned my attention towards the bulking agent. Cystoscopy revealed a normal-appearing bladder with normal ureteral orifice. No surgical artifact in the bladder or urethra. I chose a site 2 cm distal to the bladder neck. I injected bulking agent circumferentially forming several pillows coapting the urethra. I used 1 syringe of bulking agent. I left her bladder full. She was awakened and taken to the recovery room in stable condition. * OR PreOp - Susan Barrientos RN - 11/19/2022 3:07 PM CDT Fax sent to [facility] requesting cardiac clearance. Note from [facility] stating patient has not been seen in 3 years, has an appt tomorrow 11/21 10am for clearance. Surgeon's office aware. Echo done today 11/21, waiting on clearance. * OR PreOp - TERRI Gibson - 11/19/2022 1:55 PM CDT Chart reviewed. Per phone interview, patient states she would have moderate to severe SOB with 2 FOS but denies any CP. States she would have to stop to catch her breath after walking 1 block. Deniesrecent changes in activity tolerance in past 6 months. Patient sees cotton ginner Dr. Bryant and previous cardiac testing copied. Cardiac records requested by RN and available in Media, patient was last seen in 2019 with testing copied from that time. Patient will need cardiac clearance for upcomingsurgery 2/2 complaint of moderate/severe SOB with no recent evaluation/testing from cotton ginner. Addendum 11/21- Patient saw cotton ginner today for clearance and had Echo completed. Note with testing results and clearance addressed available in Media. Cardiac clearance per Dr. Bryant. Acceptable candidate. Echo 11/21/22 showed preserved LV function EF of 55-60% and traced MR TR AK EKG 07/10/19 SR Rate 76 Stress Test 06/17/19 Normal myocardial perfusion imaging after vasodilator stress Normal LV systolic function with EF 66% No obvious significant scintigraphic evidence of myocardial ischemia or scar Echo 06/16/19 Normal LV systolic function. Normal LV size. Borderline LVH. There is E to A wave reversal consistent with impaired LV relaxation. E/E': 5.4. LVEF 65%. Normal RV size and systolic function Mild mitral annular calcification. Non-specific thickening of the mitral valve leaflets. Trace MR. Tricuspid valve is normal in appearance and function. Trace TR. * OR PreOp - Susan Barrientos RN - 11/19/2022 9:55 AM CDT Can you climb 2 flights of stairs without severe SOB or chest pain? No chest pain, but would have moderate to severe SOB and would have to stop to catch her breath before she reached the top. Can walk approx 1 [address] block before needing to stop to catch breath. Are you physically able to do the same things today as 6 months ago? Yes Have you had any heart testing? EKG approx 2 yrs ago at [place] Avg BP? 120/70's - hold lisinopril/hctz DOS Do you have a cotton ginner? Manny @[facility] Requesting liquid form of pain medicine post surgery if possible (states works faster than tablets) Received telephone order for new antibiotic d/t allergy. documented in this encounter Plan of Treatment Not on file documented as of this encounter Procedures Procedure Name Priority Date/Time Associated Diagnosis Comments POCT GLUCOSE - EAST DOCKED DEVICE Routine 11/22/2022 10:27 AM CDT CYSTOSCOPY IMPLANT INJECTION 11/22/2022 9:45 AM CDT STRESS INCONTINENCE, FEMALE, OVERACTIVE BLADDER, SENSORY URGE INCONTINENCE N39.3, N32.81, N39.41 Case Notes SCHED BY FAX 10/29/2022 [facility] PHONE ASSESS SUSPENSION BLADDER SLING 11/22/2022 9:45 AM CDT STRESS INCONTINENCE, FEMALE, OVERACTIVE BLADDER, SENSORY URGE INCONTINENCE N39.3, N32.81, N39.41 Case Notes SCHED BY FAX 10/29/2022 [facility] PHONE ASSESS POCT GLUCOSE - EAST DOCKED DEVICE Routine 11/22/2022 8:40 AM CDT PATHOLOGY Routine 11/22/2022 12:00 AM CDT documented in this encounter Results * (ABNORMAL) POCT glucose (11/22/2022 10:27 AM CDT) GLUCOSE POC 145(H) 70 - 99 mg/dL 11/22/2022 10:29 AM CDT [facility] 11/22/2022 10:2 7 AM CDT us iNchol Mcgee MD POCT ORDERABLES - DEVICE Fin al Result [facility] [address] [place] [address], [place] [phone] * POCT glucose (11/22/2022 8:40 AM CDT) [facility] GLUCOSE POC 98 70 - 99 mg/dL 11/22/2022 3:[address] [facility] 11/22/2022 8:40 AM CDT us Nichol Mcgee MD POCT ORDERABLES - DEVICE Fin al Result [facility] [address] [facility] [place] [address], * Pathology (11/22/2022 12:00 AM CDT) [facility] COPATH REPORT ?[facility] ? [address] [facility] [address] ? [place] ??[id number] ? [id number] ? Department of Pathology ? Pathology Report ? SURGICAL FINAL REPORT Patient Name: KAROLINA RAMOS ? : 1955 (Age: 67) ?Location: [facility] Gender: F ?Collected Date: 11/22/2022 Med Rec #: [id number] ?Date Received: 11/22/2022 Date Reported: 11/23/2022 Provider: NICHOL MCGEE MD ?JACKI CABRERA MD Specimen(s) Mesh Final Pathologic Diagnosis MESH; REMOVAL: -GROSS EXAMINATION ONLY -PLEASE SEE GROSS DESCRIPTION Electronicall y Signed Out ? AMPARO SAMSON MD Pathologist [facility]:pb Clinical History Stress incontinence, female, overactive bladder, sensory urge incontinence, N39.3, N32.81, N39.41 Gross Description Received is a single formalin-filled container labeled with the patient's name (Karolina Ramos), date of (1955), collected 11/22/2022 at 1005, and mesh. The specimen consists of a gauze pad with two adhered fragments of blue suture material/mesh measuring 0.6 x 0.5 x 0.1 cm and 0.5 x 0.3 x 0.2 cm. There is minimal attached cauterized tissue that is not viable for processing. The specimen is for gross only examination. :pb Billing Fee Code(s): [address] [facility] TISSUE (OTHER (type in comments)) 11/22/2022 10:05 AM CDT us Nichol Mcgee MD PATHOLOGY/CYTOLOGY ORDERABLE S Final Result [facility] [address] [place] [address], [place] [phone] documented in this encounter Visit Diagnoses Diagnosis Stress incontinence in female- Primary OAB (overactive bladder) Hypertonicity of bladder Sensory urge incontinence Urge incontinence Preop examination Preoperative examination, unspecified documented in this encounter Administered Medications Inactive Administered Medications - up to 3 most recent administrations Medication Order MAR Action Action Date Dose Rate Site albumin human 25 % solution 12.5 g 12.5 g, Intravenous, Once, 1 dose, On Rhoda 11/22/22 at 1115, BETANCOURT brand REQUIRES albumin tubing and filter. Other brands do NOT require tubing/filter. If container is glass, open line vent to administer. In emergencies, may administer as rapidly as necessary to improve clinical condition. After initial volume replacement: do not exceed 1 mL/min in patients with normal plasma volume. New Bag 11/22/2022 10:50 AM CDT 12.5 g albumin human 25 % solution 1 dose, Starting on Rhoda 11/22/22 at 1049, Until Rhoda 11/22/22 at 1059, Created by cabinet override In emergencies, may administer as rapidly as necessary to improve clinical condition. After initial volume replacement: do not exceed 1 mL/min in patients with normal plasma volume. famotidine (PEPCID) tablet 20 mg 20 mg, Oral, Once, 1 dose, On Rhoda 11/22/22 at 0745, On admission, Pre-Op Given 11/22/2022 8:31 AM CDT 20 mg lactated ringers infusion at 10 mL/hr, Intravenous, Continuous, Starting on Rhoda 11/22/22 at 0745, Until Rhoda 11/22/22 at 1353, Infuse at TKO rate, Pre-Op Restarted 11/22/2022 10:13 AM CDT Continued by Anesthesia 11/22/2022 9:45 AM CDT 10 mL/hr New Bag 11/22/2022 8:31 AM CDT 10 mL/hr documented in this encounter Active and Recently Administered Medications Times are shown in CDT. Scheduled Medication Order 11/20/2022 11/21/2022 11/22/2022 albumin human 25 % solution 12.5 g (COMPLETED) 12.5 g, Intravenous, Once, 1 dose, On Rhoda 11/22/22 at 1115, BETANCOURT brand REQUIRES albumin tubing and filter. Other brands do NOT require tubing/filter. If container is glass, open line vent to administer. In emergencies, may administer as rapidly as necessary to improve clinical condition. After initial volume replacement: do not exceed 1 mL/min in patients with normal plasma volume. 1050 (New Bag - Prov ider: Pamella Garrett RN)1059 (Infusion Stop Time - Provider: Pamella Garrett RN) famotidine (PEPCID) tablet 20 mg (COMPLETED) 20 mg, Oral, Once, 1 dose, On Rhoda 11/22/22 at 0745, On admission, Pre-Op 0831 (Given - Provid er: Faith Gomes RN) levoFLOXacin (LEVAQUIN) IVPB 500 mg (COMPLETED) 500 mg, Intravenous, at 100 mL/hr, pyrometer mechanic to O.R., 1 dose, First dose on Rhoda 11/22/22 at 0745, Pre-Op 0953 (Given - Provid er: Joselyn Stock CRNA) Continuous Medication Order 11/20/2022 11/21/2022 11/22/2022 lactated ringers infusion at 10 mL/hr, Intravenous, Continuous, Starting on Rhoda 11/22/22 at 0745, Until Rhoda 11/22/22 at 1353, Infuse at TKO rate, Pre-Op 0831 (New Bag - Prov ider: Faith Gomes RN)0945 (Continued by Anesthesia - Provider: Joselyn Stock CRNA)1012 (Paused - Provider: Joselyn Stock CRNA - Comment: Switch to gravity)1013 (Restarted - Provider: Joselyn Stock CRNA)1014 (Infusion Stop Time - Provider: Joselyn Stock CRNA) PRN Medication Order 11/20/2022 11/21/2022 11/22/2022 BUpivacaine-EPINEPHrine (PF) 0.25% -[id number] injection (CANCELED) As needed, Starting on Rhoda 11/22/22 at 1001, Until Rhoda 11/22/22 at 1021, Intra-Op 1001 (Given - Provid er: Nichol Mcgee MD) documented in this encounter Additional Health Concerns Infection Onset Date Last Indicated Resolved Time 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, [id number] [place] [address] [address] [place] [address] CARDIOVASCULAR DISEASE 11/19/22 documented as of this encounter
--- OUTSIDE RECORDS SUMMARY | 2024-05-11 12:09 | XMS_ITS | Encounter Summary ---
Author Organization [facility] Address [facility] [facility] [place] [address] [place] [address] Care Team Providers Care Machine Joiner Cementer Name Role Phone Jacki Cabrera MD Primary Care Provider Juvenal Sparrow MD Unavailable [phone] Lee Tomas MD Unavailable [phone] Carol Bryant MD Unavailable [phone] Encounter Details Date Type Department Care Team (Late st Contact Info) Description 12/06/2016 Abstract [facility] [address] [place] [address] Juvenal Sparrow MD [address] [place] [address] Social History Tobacco Use Types Packs/Day Years [...] documented as of this encounter Care Teams Machine Joiner Cementer Relationship Specialty Start Date End Date Jacki Cabrera MD [address] [facility] [address] [place] [address] PCP - General INTERNAL MEDICINE 12/05/16 Juvenal Sparrow MD [address] [place] [address] [place] [facility] CARDIOVASCULAR DISEASE 12/05/16 11/18/22 Lee Tomas MD [id number] [place] [phone] NEPHROLOGY 11/19/22 Carol Bryant MD [facility], [address] [facility] [address] [place] [address] CARDIOVASCULAR DISEASE 11/19/22 documented as of this encounter
--- OUTSIDE RECORDS SUMMARY | 2024-05-11 12:09 | XMS_ITS | Encounter Summary ---
Author Organization [facility] Address [facility] [facility] [place] [address] [place] [address] Care Team Providers Care Stripper Preliminary Name Role Phone Jacki Cabrera MD Primary Care Provider Juvenal Sparrow MD Unavailable [phone] Encounter Details Date Type Department Care Team (Late st Contact Info) Description 01/04/2016 Orders Only KARLIE [place]VERSION [place], [place] [id number] , Generic Conversion, Social History Tobacco Use [...] Procedure Name Priority Date/Time Associated Diagnosis Comments CELL COUNT BODY FLUID Nurse Collected Priority 01/04/2016 2:41 PM CDT documented in this encounter Results * CELL COUNT BODY FLUID (01/04/2016 2:41 PM CDT) SOURCE (FLUID) LEFT KNEE 01/04/2016 4:[address] [facility] WBC (FLUID) 6.735 x10'3/uL 01/04/2016 4:[address] [facility] Comment:REFERENCE RANGE NOT ESTABLISHED RBC (FLUID) 3.367 x10'6/uL 01/04/2016 4:[address] [facility] Comment:REFERENCE RANGE NOT ESTABLISHED DIFFERENTIAL MANUAL DIFFERENTIAL PERFORMED ON CONCENTRATED CYTOSPIN 01/04/2016 2:[address] [facility] CELLS COUNTED 100 No COUNTED 01/04/2016 5:[address] [facility] SEGS (FLUID) 81 % 01/04/2016 5:[address] [facility] LYMPHS (FLUID) 12 % 01/04/2016 5:[address] [facility] SYNOVIAL CELLS (FLUID) 7 % 01/04/2016 5:[address] [facility] BODY FLUID SPECIMEN / Unknown 01/04/2016 2:41 PM CDT 01/04/2016 4:18 PM CDT us Generic Conversion Md BREEN BODY FLUIDS AND STOOLS ORDERABLES Final Result [facility] [address] [place] [address], [id number] documented in this encounter Visit Diagnoses Not on filedocumented in this encounter Additional Health Concerns Infection Onset Date Last Indicated Resolved Time MRSA 03/29/2017 03/29/2017 documented as of this encounter Care Teams Stripper Preliminary Relationship Specialty Start Date End Date Jacki Cabrera MD [address] [facility] 15 [place] [address] PCP - General INTERNAL MEDICINE 12/05/16 Juvenal Sparrow MD [address] [place] [address] [place] [employer] Attendant CARDIOVASCULAR DISEASE 12/05/16 11/18/22 documented as of this encounter
--- OUTSIDE RECORDS SUMMARY | 2024-05-11 12:09 | XMS_ITS | Encounter Summary ---
Author Organization [facility] Address [address] [facility] [place] [address] [place] [address] Care Team Providers Care Silk Spotter Name Role Phone Jacki Cabrera MD Primary Care Provider Juvenal Sparrow MD Unavailable [phone] Encounter Details Date Type Department Care Team (Late st Contact Info) Description 01/04/2016 Orders Only KARLIE CONVERSION [address] [place], [place] [id number] , Generic Conversion, Social History Tobacco Use [...] Procedure Name Priority Date/Time Associated Diagnosis Comments CRYSTALS, BODY FLUID Nurse Collected Priority 01/04/2016 2:40 PM CDT documented in this encounter Results * CRYSTALS, BODY FLUID (01/04/2016 2:40 PM CDT) COMMENT PRELIMINARY REPORT: 01/04/2016 4:28 PM CDT [facility] Comment: CALCIUM PYROPHOSPHATE CRYSTALS TO BE REVIEWED BY PATHOLOGIST SITE: SYNOVIAL FLUID 01/04/2016 4:28 PM CDT [facility] Comment:KNEE COMMENT THIS CRYSTAL REPORT WAS INTERPRETED BY 01/05/2016 10:10 AM CDT [facility] ORDERS INTERFACE Comment: DR CRISTHIAN FIGUEROA MD THE FLUID IS EXAMINED MICROSCOPICALLY WITH AND WITHOUT POLARIZED LIGHT AND WITH AND WITHOUT FIRST ORDER RED RD LAB TECHNICIAN UNDER 10X AND 40X MAGNIFICATION. THE FLUID CONTAINS FEW WHITE BLOOD CELLS AND MANY RED BLOOD CELLS. THERE ARE NO MONOSODIUM URATE (MSU OR GOUT) OR CALCIUM PYROPHOSPHATE DIHYDRATE (CPPD OR PSEUDOGOUT) CRYSTALS IDENTIFIED. SYNOVIAL FLUID SPECIMEN / Unknown 01/04/2016 2:40 PM CDT 01/04/2016 4:15 PM CDT us Generic Conversion Md BREEN BODY FLUIDS AND STOOLS ORDERABLES Final Result [facility] ORDERS INTERFACE US [facility] [address] [place] [address], [id number] documented in this encounter Visit Diagnoses Not on filedocumented in this encounter Additional Health Concerns Infection Onset Date Last Indicated Resolved Time MRSA 03/29/2017 03/29/2017 documented as of this encounter Care Teams Silk Spotter Relationship Specialty Start Date End Date Jacki Cabrera MD [address] [facility] 15 [place] [address] PCP - General INTERNAL MEDICINE 12/05/16 Juvenal Sparrow MD [address] [place] [address] [place] Snailer CARDIOVASCULAR DISEASE 12/05/16 11/18/22 documented as of this encounter
--- OUTSIDE RECORDS SUMMARY | 2024-05-11 12:09 | XMS_ITS | Encounter Summary ---
Author Organization [facility] Address [address] [facility] [place] [address] [place] [address] Care Team Providers Care Leak Gang Supervisor Name Role Phone Jacki Cabrera MD Primary Care Provider Lee Tomas MD Unavailable [phone] Carol Bryant MD Unavailable [phone] Encounter Details Date Type Department Care Team (Latest Contact Info) Description 11/22/2022 Travel Social History Tobacco Use Types Packs/Day Years Used Date Smoking Tobacco: Every Day Cigarettes Smokeless Tobacco: Never Comments:2 cigs/day off and on smoker for [...] documented as of this encounter Care Teams Leak Gang Supervisor Relationship Specialty Start Date End Date Jacki Cabrera MD [address] [place] [address] PCP - General INTERNAL MEDICINE 12/05/16 Lee Tomas MD [address] [place] [phone] NEPHROLOGY 11/19/[address] [facility], [address] [place] [address] CARDIOVASCULAR DISEASE 11/19/22 documented as of this encounter
--- OUTSIDE RECORDS SUMMARY | 2024-05-11 12:09 | XMS_ITS | Encounter Summary ---
Author Organization [facility] Address [address] [facility] [place] [address] [place] [address] Care Team Providers Care Plastic Outfitter Name Role Phone Jacki Cabrera MD Primary Care Provider Juvenal Sparrow MD Unavailable [phone] Lee Tomas MD Unavailable [phone] Carol Bryant MD Unavailable Encounter Details Date Type Department Care Team (Late st Contact Info) Description 11/18/[address] [facility] [address] [facility] [address] Sesar Felipe MD [address] [facility]. [place], [place] [phone] Social History Tobacco Use Types Packs/Day Years [...] documented as of this encounter Care Teams Plastic Outfitter Relationship Specialty Start Date End Date Jacki Cabrera MD [address]44 [facility] 15 [place] [address] PCP - General INTERNAL MEDICINE 12/05/16 Juvenal Sparrow MD [address] [place] [phone] [place] [employer] Manager CARDIOVASCULAR DISEASE 12/05/16 11/18/22 Lee Tomas MD [address] [place] [phone] NEPHROLOGY 11/19/22 Carol Bryant MD [facility], [address] [facility] [address] [place] [address] CARDIOVASCULAR DISEASE 11/19/22 documented as of this encounter
--- OUTSIDE RECORDS SUMMARY | 2024-05-11 12:09 | XMS_ITS | Encounter Summary ---
Author Organization [facility] Address [address] [facility] [place] [address] [place] [address] Care Team Providers Care Tar Distillation Supervisor Name Role Phone Jacki Rodriguez MD Primary Care Provider Juvenal Sparrow MD Unavailable [phone] Lee Tomas MD Unavailable [phone] Carol Bryant MD Unavailable [phone] Encounter Details Date Type Department Care Team (Late st Contact Info) Description 11/18/[address] [facility] [place] [address] Nichol Mcgee MD [address] [facility]. [place], [place] [phone] Social History Tobacco Use Types Packs/Day Years [...] on file documented as of this encounter H&P Notes * Nichol Mcgee MD - 11/18/2022 7:53 PM CDT Attending Provider: No att. providers found PCP: JACKI RODRIGUEZ MD Karolina Ramos is an 67-year-old female. Reason for Admission: [...] surgery in 1995 Type 2 diabetes mellitus ([facility]) Vitamin D deficiency Allergies: Allergies Allergen Reactions [...] 3 (three) times daily. Cholecalciferol (VITAMIN D3) 43400 UNITS Tab Take by mouth daily. cyanocobalamin [...] agrees to proceed NICHOL MCGEE MD 11/18/2022 * Nichol Mcgee MD - 11/18/2022 7:53 PM CDT Attending Provider: No att. providers found PCP: JACKI RODRIGUEZ MD Karolina Ramos is an 67-year-old female. Reason for Admission: * No active hospital problems. * Prior note was an error. Wrong patient. Note deleted documented in this encounter Plan of Treatment Not on file documented as of this encounter Visit Diagnoses Not on filedocumented in this encounter Additional Health Concerns Infection Onset Date Last Indicated Resolved Time MRSA 03/29/2017 03/29/2017 documented as of this encounter Care Teams Tar Distillation Supervisor Relationship Specialty Start Date End Date Jacki Rodriguez MD [address] [facility] 15 [place] [address] PCP - General INTERNAL MEDICINE 12/05/16 Juvenal Sparrow MD [address] [place] [address] [place] [employer] Stainer CARDIOVASCULAR DISEASE 12/05/16 11/18/22 Lee Tomas MD [address] [place] [phone] NEPHROLOGY 11/19/22 Carol Bryant MD [facility], [id number] [place] [address] [address] [place] [address] CARDIOVASCULAR DISEASE 11/19/22 documented as of this encounter
--- OUTSIDE RECORDS SUMMARY | 2024-05-11 12:09 | XMS_ITS | Encounter Summary ---
Author Organization [facility] Address [address] [facility] [place] [address] [place] [address] Care Team Providers Care Activities Officer Name Role Phone Jacki Cabrera MD Primary Care Provider Lee Tomas MD Unavailable [phone] Carol Bryant MD Unavailable [phone] Encounter Details Date Type Department Care Team (Latest Contact Info) Description 11/19/2022 Travel Social History Tobacco Use Types Packs/Day [...] documented as of this encounter Care Teams Activities Officer Relationship Specialty Start Date End Date Jacki Cabrera MD [address] [place] [address] PCP - General INTERNAL MEDICINE 12/05/16 Lee Tomas MD [address] [place] [phone] NEPHROLOGY 11/19/22 Carol Bryant MD [facility], [address] [place] [address] CARDIOVASCULAR DISEASE 11/19/22 documented as of this encounter
--- OUTSIDE RECORDS SUMMARY | 2024-05-11 12:09 | XMS_ITS | Encounter Summary ---
Author Organization [facility] Address [address] [place] [address] [place] [address] Care Team Providers Care Color Separation Photographer Name Role Phone Jacki Cabrera MD Primary Care Provider Lee Tomas MD Unavailable [phone] Carol Bryant MD Unavailable [phone] Reason for Visit * Auth/Cert (Routine) Specialty Diagnoses / Procedures Referred By Calvin bentley Referred To Contact Diagnoses STRESS INCONTINENCE, FEMALE, OVERACTIVE BLADDER, SENSORY URGE INCONTINENCE N39.3, N32.81, N39.41 Procedures EXCISION OF EXPOSED URETHRAL SLING BULKING AGENT AND CYSTOSCOPY Sesar Felipe MD [address] [facility] [place] [address] Phone: tel: fax: Referral ID Status Reason Start Date Expiration Date Visits Re quested Visits Authorized [id number] 1 1 Encounter Details Date Type Department Care Team (Late st Contact Info) Description 11/22/2022 9:45 AM CDT Anesthesia Event [facility] OR [address] [place], [place] [phone] Antwon Garcia MD [address] [place] [address] [address] [place] [address] [phone] (Work) Apurva Goodrich, TERRI [address] [place] [address] Anesthesia Record Procedure Summary Procedure Name Responsible Anesthesiologist Anesthesia Start Time Anesthesia Stop Time EXCISION OF EXPOSED URETHRAL SLING (Perineum) Antwon Garcia MD 11/22/22 0945 11/22/22 1022 Events Date Time Event Comment 11/22/2022 0749 0749 AN Anesthesia Prepped 0945 An Start Patient ID and consent checked and patient reassessed. 0945 An Start Data 0949 Preoxygenation 0949 Face Mask Applied 0950 An Induction The patient was reevaluated immediately before moderate or deep sedation use and before anesthesia induction. 0953 Anesthesia Ready 1001 Quick Note Local injected by surgeon 1014 An Emergence 1016 an stop data 1022 Post Anesthetic Care Handoff I completed my handoff to the receiving nurse during which we: 1. Identified the patient 2. Identified the responsible provider 3. Reviewed the pertinent medical history 4. Discussed the surgical course 5. Reviewed intra-op anesthesia management and issues during anesthesia 6. Set expectations for post-procedure period 7. Allowed opportunity for questions and acknowledgement of understanding. 1022 An Stop Meds Name Total levoFLOXacin (LEVAQUIN) IVPB 500 mg 500 mg midazolam (VERSED) 1 mg/mL injection 2 m g fentaNYL (SUBLIMAZE) 100 mcg/2 mL inject ion 25 mcg propofol (DIPRIVAN) 200 mg/20 mL injecti on 30 mg propofol (DIPRIVAN) 1000 mg/100 mL infus ion 169.65 mg lidocaine (PF) (XYLOCAINE) 2% injection 100 mg ondansetron (ZOFRAN) 4 mg/2 mL injection 4 mg dexamethasone (DECADRON) injection 4 mg phenylephrine (KAMRAN-SYNEPHRINE) 10 mg/mL injection 320 mcg lactated ringers infusion 400 mL * Agents Name O2 Air Ancillary O2 * Blood No blood administrations on file. Lines, Drains, and Airways Type Details Placement Removal Peripheral IV Placement Date: 11/04 ; Placement Time: 08; Placed Outside of This Facility?: No; Size: 20 G; Orientation: Right; Location: Wrist; Site Prep: Alcohol; Local Anesthetic: None; Insertion attempts: 1; Ultrasound-guided Placement?: No; Patient Tolerance: Tolerated well; Removal Date: 11/22/22; Removal Time: 1130; Removal Reason: Patient Discharged 11/22/22 0820 by Faith Gomes RN 11/22/22 1130 by Alla Hinds RN Craft Catheter 11/22/22; 1001; 1; H and hygiene performed, Sterile gloves, drape and lubricant used, Drainage bag secured below level of bladder, Closed system maintained, Site cleansed with sterile antiseptic, Catheter inserted using aseptic technique; Stat lock; Latex, Straight-tip; 16 Fr. 11/22/22 1001 by Kaela Sampson RN 11/22/22 1011 by Kaela Sampson RN documented in this encounter Social History Tobacco [...] as of this encounter Progress Notes * Antwon Garcia MD - 11/22/2022 11:47 AM CDT Addendum created 11/22/22 1147 by Antwon Garcia MD Attestation recorded in Intraprocedure, Intraprocedure Attestations filed documented in this encounter OR Notes * Anesthesia Postprocedure Evaluation - Antwon Garcia MD - 11/22/2022 11:05 AM CDT Anesthesia Post-op Note Karolina Ramos Procedure(s): EXCISION OF EXPOSED URETHRAL SLING (Perineum) BULKING AGENT AND CYSTOSCOPY (Urethra) Anesthesia type: general Vitals: 11/22/22 1100 BP: 103/59 Vitals: 11/22/22 1100 Pulse: 73 Vitals: 11/22/22 1100 Resp: 14 Vitals: 11/22/22 1100 Temp: 36.2 ??C Vitals: 11/22/22 1100 SpO2: 98% Patient Location: PACU Level of Consciousness: awake Pain Management: adequate analgesia Airway Patency: patent Respiratory Status: acceptable Cardiovascular Status: acceptable Post-Op Nausea: none There were no known notable events for this encounter. * Anesthesia Preprocedure Evaluation - Antwon Garcia MD - 11/22/2022 7:37 AM CDT Anesthesia ROS/MED History Reviewed: Patient summary , ECG, Family history anesthesia, Anesthesia history , Medications , Labs , Images/Studies Pre-Anesthetic State: alert, awake and responds appropriately no history of anesthetic complications Pulmonary (+) sleep apnea(-) COPD, asthma ROS comment: ERROL- not using CPAP since weight loss Cardiovascular (+) hypertension, hyperlipidemia(-) past [place], CHF, arrhythmia ROS comment: ECHO 11/21/2022 - Normal EF, Trace MR, IN Cardiac Clearance received from 11/21/2022 in Media Neuro/Psych (+) depression(-) no seizures, no CVA Substance Use (-) smoker, vaping user GI/Hepatic/Renal (+) renal disease, (CRI)(-) GERD, PUD, liver disease Comments: S/p Gastric Bypass for Weight Loss Endo/Other (+) diabetes mellitus, (type 2), (Using Oral hypoglycemic), obese (-) blood dyscrasia GENERAL COMMENTS Review of patient's allergies indicates: Penicillins, Betadine [povidone iodine], and Metformin NPO Past Medical History: No date: Anxiety and depression Comment: grief causing depression No date: Arthritis No date: Bowel obstruction ([facility]) No date: GERD (gastroesophageal reflux disease) No date: Hyperlipidemia No date: Hypertension No date: Obesity Comment: s/p gastric bypass surgery No date: Psoriasis No date: Psoriatic arthritis ([facility]) No date: Restless legs syndrome No date: Ruptured lumbar disc Comment: L4-L5, s/p surgery in 1995 No date: Type 2 diabetes mellitus (CMS/HCC) No date: Vitamin D deficiency Past Surgical History: 1999: ANKLE SURGERY; Right No date: EYE SURGERY Comment: cataracts 2016: FUSION OF ANKLE JOINT; Right 2015: GASTRIC BYPASS 2000: HARDWARE REMOVAL FOOT / ANKLE; Right 1988: HYSTERECTOMY Comment: partial 2009: KNEE SURGERY; Right Comment: knee repair 1997: KNEE SURGERY; Right 2004: PARTIAL REMOVAL OF OVARY(S); Bilateral 2014: SKIN TAG REMOVAL 1996: SPINE SURGERY Comment: L4-L5 for ruptupred discs 2015: TOTAL KNEE ARTHROPLASTY; Right 2008: TOTAL KNEE ARTHROPLASTY; Right 2006: TOTAL KNEE ARTHROPLASTY; Left 1976: TUBAL LIGATION NPO Status: Physical Evaluation Airway Mallampati: II Dental (edentulous) Pulmonary Breath sounds clear to auscultation Cardiovascular Rhythm: regular Rate: normal STOP-Bang Assessment: Do you snore loudly?: 0 Do you often feel tired or fatigued after your sleep?: 0 Has anyone ever observed you stop breathing in your sleep?: 0 Do you have or are you being treated for high blood pressure?: 1 Recent BMI (Calculated): 34.5 Is BMI greater than 35 kg/m2?: 0=No Age older than 50 years old?: 1=Yes Is your neck circumference greater than 17 inches (Male) or 16 inches (Female)?: 0 Gender - Male: 0=No STOP-Bang Total Score: 2 Anesthesia Plan ASA 3 Intravenous Induction Anesthesia type: general Plan for Airway: nasal cannula/simple face mask TIVA Informed Consent Anesthetic plan and risks discussed with patient of whom consent was obtained. . documented in this encounter Plan of Treatment Not on file documented as of this encounter Visit Diagnoses Not on filedocumented in this encounter Administered Medications Inactive Administered Medications - up to 3 most recent administrations Medication Order MAR Action Action Date Dose Rate Site dexamethasone (DECADRON) injection Intravenous, PRN, Starting on Rhoda 11/22/22 at 0958, Until Rhoda 11/22/22 at 1022, Anesthesia Intra-Op Given 11/22/2022 9:58 AM CDT 4 mg fentaNYL (SUBLIMAZE) injection Intravenous, PRN, Starting on Rhoda 11/22/22 at 0950, Until Rhoda 11/22/22 at 1022, Anesthesia Intra-Op Given 11/22/2022 9:50 AM CDT 25 mcg lactated ringers infusion at 10 mL/hr, Intravenous, Continuous, Starting on Rhoda 11/22/22 at 0745, Until Rhoda 11/22/22 at 1353, Infuse at TKO rate, Pre-Op Restarted 11/22/2022 10:13 AM CDT Continued by Anesthesia 11/22/2022 9:45 AM CDT 10 mL/hr New Bag 11/22/2022 8:31 AM CDT 10 mL/hr levoFLOXacin (LEVAQUIN) IVPB 500 mg 500 mg, Intravenous, at 100 mL/hr, call center nurse to O.R., 1 dose, First dose on Rhoda 11/22/22 at 0745, Pre-OpIndications:Stress incontinence in female,OAB (overactive bladder),Sensory urge incontinence Given 11/22/2022 9:53 AM CDT 500 mg lidocaine (PF) (XYLOCAINE) 2 % injection Intravenous, PRN, Starting on Rhoda 11/22/22 at 0950, Until Rhoda 11/22/22 at 1022, Anesthesia Intra-Op Given 11/22/2022 9:50 AM CDT 100 mg midazolam (VERSED) injection Intravenous, PRN, Starting on Rhoda 11/22/22 at 0945, Until Rhoda 11/22/22 at 1022, Anesthesia Intra-Op Given 11/22/2022 9:45 AM CDT 2 mg ondansetron (ZOFRAN) injection Intravenous, PRN, Starting on Rhoda 11/22/22 at 0950, Until Hroda 11/22/22 at 1022, Anesthesia Intra-Op Given 11/22/2022 9:50 AM CDT 4 mg phenylephrine (KAMRAN-SYNEPHRINE) injection Intravenous, PRN, Starting on Rhoda 11/22/22 at 1000, Until Rhoda 11/22/22 at 1022, Anesthesia Intra-Op Given 11/22/2022 10:08 AM CDT 80 mcg Given 11/22/2022 10:04 AM CDT 160 mcg Given 11/22/2022 10:00 AM CDT 80 mcg propofol (DIPRIVAN) infusion Intravenous, Continuous PRN, Starting on Rhoda 11/22/22 at 0950, Until Rhoda 11/22/22 at 1022, Anesthesia Intra-Op Rate/Dose Change 11/22/2022 10:02 AM CDT 65 mcg/kg/min 41.223 mL/hr Rate/Dose Change 11/22/2022 9:53 AM CDT 80 mcg/kg/min 50.7 36 mL/hr New Bag 11/22/2022 9:50 AM CDT 100 mcg/kg/min 63.42 mL/ hr propofol (DIPRIVAN) IV bolus Intravenous, PRN, Starting on Rhoda 11/22/22 at 0950, Until Rhoda 11/22/22 at 1022, Anesthesia Intra-Op Given 11/22/2022 9:50 AM CDT 30 mg documented in this encounter Additional Health Concerns Infection Onset Date Last Indicated Resolved Time MRSA 03/29/2017 03/29/2017 documented as of this encounter Care Teams Color Separation Photographer Relationship Specialty Start Date End Date Jacki Cabrera MD [address] [address] PCP - General INTERNAL MEDICINE 12/05/16 Lee Tomas MD [address] [place] [phone] NEPHROLOGY 11/19/22 Carol Bryant MD [facility], [id number] [place] [phone] CARDIOVASCULAR DISEASE 11/19/22 documented as of this encounter
--- OUTSIDE RECORDS SUMMARY | 2024-05-11 12:09 | XMS_ITS | Encounter Summary ---
Author Organization [facility] Address [facility] [place] [address] [place] [address] Care Team Providers Care Welfare Service Aide Name Role Phone Jacki Cabrera MD Primary Care Provider Juvenal Sparrow MD Unavailable [phone] Reason for Visit * Reason Comments ECG (SCAN) Encounter Details Date Type Department Care Team (Late st Contact Info) Description 01/15/2017 Scan [facility] [address] [place] [address] Scanned, Documents ECG (SCAN) Social History Tobacco Use Types Packs/Day [...] Procedure Name Priority Date/Time Associated Diagnosis Comments ECG GENERIC (SCAN ORDER) Routine 11/22/2016 documented in this encounter Results * ECG (11/22/2016) us Documents Scanned SCANNING Final Result documented in this encounter Visit Diagnoses Not on filedocumented in this encounter Care Teams Welfare Service Aide Relationship Specialty Start Date End Date Jacki Cabrera MD [address] [address] PCP - General INTERNAL MEDICINE 12/05/16 Juvenal Sparrow MD [address] [place] [address] [place] [employer] CARDIOVASCULAR DISEASE 12/05/16 11/18/22 documented as of this encounter
--- OUTSIDE RECORDS SUMMARY | 2024-05-11 12:09 | XMS_ITS | Clinical Summary ---
Author Organization [facility] Address [address] [place] [address] [place] [address] Care Team Providers Care Learning Program Manager Name Role Phone Jacki Cabrera MD Primary Care Provider Lee Tomas MD Unavailable [phone] Carol Bryant MD Unavailable [phone] Allergies Active Allergy Reactions Criticality Noted Date Comments Povidone Iodine Itching 11/19/2022 Metformin Nausea and Vomiting 11/19/2022 Penicillins Rash,Shortness of Breath High 12/12/2007 Medications * This document contains information received from the source organization and may not represent a complete record from that organization. folic acid 1 MG tablet Take 1 tablet (1 mg total) by mouth daily. 5 Active methotrexate 2.5 MG tablet Take 8 tablets (20 mg total) by mouth once a week. Tuesdays 5 Active Multiple Vitamins-Iron (MULTI-VITAMIN/I TASIA) Tab Take 1 tablet by mouth daily. Active duloxetine 30 MG capsule Take 4 capsules (120 mg total) by mouth daily. 7 Active gabapentin 600 MG tablet Take 1 tablet (600 mg total) by mouth 3 (three) times daily. 7 Active lovastatin 20 MG tablet Take 1 tablet (20 mg total) by mouth nightly. 7 Active omeprazole 20 MG capsule Take 1 capsule (20 mg total) by mouth nightly. 7 Active zolpidem 5 MG tablet Take 2 tablets (10 mg total) by mouth nightly at bedtime. 7 Active lisinopril-hydro chlorothiazide 20-25 MG tablet Take 1 tablet by mouth daily. Active calcitriol (ROCALTROL) 0.25 MCG capsule Take 1 capsule (0.25 mcg total) by mouth daily. Active Dapagliflozin Propanediol (FARXIGA) 5 MG Tab Take 1 tablet by mouth daily. Active sulfaSALAzine (AZULFIDINE) 500 MG tablet Take 1 tablet (500 mg total) by mouth 2 (two) times daily. Active predniSONE (DELTASONE) 5 mg tablet Take 1 tablet (5 mg total) by mouth daily. Active QUEtiapine (SEROQUEL) 100 MG tablet Take 1 tablet (100 mg total) by mouth nightly at bedtime. Active vortioxetine (TRINTELLIX) 5 MG tablet Take 1 tablet (5 mg total) by mouth daily. Active docusate sodium (COLACE) 100 MG capsule Take 1 capsule (100 mg total) by mouth 2 (two) times daily. Active FIBER ADULT GUMMIES OR Take 1 chewable tablet by mouth daily as needed (constipation ). Active OZEMPIC, 0.25 OR 0.5 MG/DOSE, 2 MG/3ML injection (PEN) Inject 0.5 mg into the skin every 7 days. 3 Active ondansetron (ZOFRAN) 4 MG tablet Take 1 tablet (4 mg total) by mouth every 8 (eight) hours as needed. Active TALTZ 80 MG/ML Solution Auto-injector Inject 80 mg as directed every 30 (thirty) days. Active Active Problems Problem Noted Date Diagnosed Date Hypertension 12/25/2016 Hyperlipidemia 12/25/2016 Resolved Problems Problem Noted Date Diagnosed Date Resolved Date Preop cardiovascular exam 12/25/2016 Family History Medical History Relation Comments COPD Father Coronary artery disease Father Diabetes Father pneumonia Mother Glaucoma Other 1 Coronary artery disease Other 2 Relation Status Comments Father (Age 83) Mother (Age 63) Other 1 Alive Other 2 Alive Social History Tobacco Use Types Packs/Day Years [...] file Not on file Not on file Last Filed Vital Signs [...] Mass Index 35.43 11/22/2022 8:00 AM CDT Plan of Treatment Health Maintenance Due Date Last Done Comments Colorectal Cancer Screening Colonoscopy (10 Years) 1957 Hepatitis C 1975 DTaP, Tdap and Td Vaccines (1 - Tdap) 1976 Mammogram Screening 1997 Annual Medicare Wellness Visit 2022 Dexa Scan (General) 2022 COVID-19 Vaccine ( season) 2024 02/07/2022, 04/03/2021, 08/15/2020, Additional history exists Influenza Adult (#1) 2024 02/07/2022, 02/08/2021, 02/16/2020, Additional history exists RSV Immunization or 60+ Years (1 - 1-dose 75+ series) 2032 Zoster Vaccines Completed 04/30/2019, 02/22/2019 Pneumococcal Vaccine: 65+ Years Completed 09/10/2022, 04/03/2021, 08/13/2006 Meningococcal Vaccine Aged Out No marisela bianca eligible based on patient's age to complete this topic RSV Immunizations Under 20 Months Aged Out No longer eligible based on patient's age to complete this topic Medical Devices Implanted Type Area Personal Care Assistant Device Identifier Shelf Expiration Date Model / Serial / Lot Stimulator Implant Stimulator Implant Description:Neurostimulator Bulkamid Injection Urethral Bulking Agent Implanted:Qty : 1 on 11/22/2022 by Sesar Felipe MD at [facility] N/A: Urethra [id number] 07/03/2025 [id number] / / [id number] Additional Health Concerns Infection Onset Date Last Indicated MRSA 03/29/2017 03/29/2017 Insurance MEDICAID MEDICARE MEDICAID [facility] Advance Directives Documents on File Type Date Recorded 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 Advance Directives and Living Will 01/03/2016 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 Advance Directives and Living Will 08/15/2015 12:00 AM ADVANCED DIRECTIVES Advance Directives and Living Will 01/12/2014 12:00 AM ADVANCED DIRECTIVES Care Teams Learning Program Manager Relationship Specialty Start Date End Date Jacki Cabrera MD [address] [facility] [address] [place] [address] PCP - General INTERNAL MEDICINE 12/05/16 [place] [address] [facility] [address] [place] [address] NEPHROLOGY 11/19/22 Carol Bryant MD [facility], [address] [facility] [address] [place] [address] CARDIOVASCULAR DISEASE 11/19/22
--- OUTSIDE RECORDS SUMMARY | 2024-05-11 12:09 | XMS_ITS | Encounter Summary ---
Author Organization [facility] Address Formerly [facility] [place] [address] [place] [address] Care Team Providers Care Surgical Nurse Name Role Phone Jacki Cabrera MD Primary Care Provider Juvenal Sparrow MD Unavailable [phone] Encounter Details Date Type Department Care Team (Late st Contact Info) Description 01/04/2016 Orders Only [facility] [place], [place] [address] , Generic Conversion, Social History Tobacco Use [...] Procedure Name Priority Date/Time Associated Diagnosis Comments PROTHROMBIN TIME, VENOUS NOW 01/04/2016 3:05 PM CDT documented in this encounter Results * PROTIME/INR, VENOUS (01/04/2016 3:05 PM CDT) PROTIME 13.5 11.6 - 14.3 SEC 01/04/2016 3:34 PM CDT [facility] INR 1.0 0.9 - 1.1 01/04/2016 3:34 PM CDT [facility] 01/04/2016 3:05 PM CDT 01/04/2016 3:06 PM CDT us Generic Conversion Md [facility] Final R esult [facility] [address] [place] [address], [phone] documented in this encounter Visit Diagnoses Not on filedocumented in this encounter Additional Health Concerns Infection Onset Date Last Indicated Resolved Time MRSA 03/29/2017 03/29/2017 documented as of this encounter Care Teams Surgical Nurse Relationship Specialty Start Date End Date Jacki Cabrera MD [address] [address] PCP - General INTERNAL MEDICINE 12/05/16 Juvenal Sparrow MD [address] [place] [address] [place] Belly Dancer CARDIOVASCULAR DISEASE 12/05/16 11/18/22 documented as of this encounter
--- OUTSIDE RECORDS SUMMARY | 2024-05-11 12:09 | XMS_ITS | Encounter Summary ---
Author Organization [facility] Address [address] [facility] [place] [address] [place] [address] Care Team Providers Care Sanitary Plumber Name Role Phone Jacki Cabrera MD Primary Care Provider Lee Tomas MD Unavailable [phone] Carol Bryant MD Unavailable [phone] Reason for Visit * Auth/Cert (Routine) Specialty Diagnoses / Procedures Referred By Calvin bentley Referred To Contact Diagnoses STRESS INCONTINENCE, FEMALE, OVERACTIVE BLADDER, SENSORY URGE INCONTINENCE N39.3, N32.81, N39.41 Procedures EXCISION OF EXPOSED URETHRAL SLING BULKING AGENT AND CYSTOSCOPY Nichol Mcgee MD [address] [place] [address] Phone: tel: fax: Referral ID Status Reason Start Date Expiration Date Visits Re quested Visits Authorized [id number] 1 1 Encounter Details Date Type Department Care Team (Late st Contact Info) Description 11/22/2022 9:46 AM CDT - 11/22/2022 11:[address] [facility] OR [place], [place] [id number] Nichol Mcgee MD [address] [place] [address] EXCISION OF EXPOSED URETHRAL SLING Surgery Details Date/Time Status Location OR Service Patient Class Case Class Case Type Trauma Case? 11/22/2022 9:46 AM Posted [facility] OR OR 1 Urology Short Stay/Outpati ent Surgery E - Elective No Panel 1 Procedure LRB Anes Op Region Wound Class Comments EXCISION OF EXPOSED URETHRAL SLING N/A General Perin eum Clean Contaminated BULKING AGENT AND CYSTOSCOPY N/A General Urethra C lean Contaminated Surgeon Surgeon Role Service Panel Nichol Mcgee MD Primary Urology 1 Case Notes SCHED BY FAX 10/29/2022 LCS PHONE ASSESS documented in this encounter Social History Tobacco [...] Sign Reading Time Taken Comments Blood Pressure 103/59 11/22/2022 11:00 AM CDT Pulse 73 11/22/2022 11:00 AM CDT Temperature 36.2 ??C (97.1 ??F) 11/22/2022 1 1:00 AM CDT Respiratory Rate 14 11/22/2022 11:0 0 AM CDT Oxygen Saturation 98% 11/22/2022 11: 00 AM CDT Inhaled Oxygen Concentration - - [...] Care Everywhere. * Urethral Suspension Discharge Instructions (Swazi) * Phenazopyridine, ADULT (Swazi) * General Anesthesia Discharge Instructions (Swazi) documented in this encounter Medications at Time [...] as needed for Pain. 15 tablet 11/22/2022 3 documented as of this encounter H&P Notes [...] during recuperation were discussed with the patient/family/personal door to door sales representative. Reasonable alternatives to the patient's proposed procedure/surgery including benefits, risks, and side effects related to the alternatives and the risks related to not receiving the proposed care were also discussed with the patient/family/personal door to door sales representative. Questions were answered and the patient/family/personal door to door sales representative verbalized understanding and desires to proceed. Source Note - Nichol Mcgee MD - 11/18/2022 7:53 PM CDT Attending Provider: No att. providers found PCP: JACKI CABRERA MD Karolina Ramos is an 67-year-old female. [...] surgery in 1995 Type 2 diabetes mellitus ([facility]) Vitamin D deficiency Allergies: Allergies [...] Right 2009 knee repair KNEE SURGERY Right 1996 PARTIAL REMOVAL OF OVARY(S) Bilateral 2004 SKIN [...] 3 (three) times daily. Cholecalciferol (VITAMIN D3) 52508 UNITS Tab Take by mouth daily. cyanocobalamin [...] I anesthetized the skin and placed a Anderson retractor. I grasped the small area of [...] 11/19/2022 3:07 PM CDT Fax sent to [facility] requesting cardiac clearance. Note from [facility] stating patient has not been seen in [...] tolerance in past 6 months. Patient sees custom harvester Dr. Bryant and previous cardiac testing copied. Cardiac records requested by RN and available in Media, patient was last seen in 2019 with testing copied from that time. Patient will need cardiac clearance for upcomingsurgery / complaint of moderate/severe SOB with no recent evaluation/testing from custom harvester. Addendum 11/21- Patient saw custom harvester today for clearance and had Echo completed. Note with testing results and clearance addressed available in Media. Cardiac clearance per Dr. Bryant. Acceptable candidate. Echo 11/21/22 showed preserved LV function EF of 55-60% and traced MR TR SD EKG 07/10/19 SR Rate 76 Stress Test [...] testing? EKG approx 2 yrs ago at [facility] BP? 120/70's - hold lisinopril/hctz DOS Do you have a custom harvester? Manny @[facility] Requesting liquid form of pain medicine post [...] - 99 mg/dL 11/22/2022 10:29 AM CDT [facility] 11/22/2022 10:2 7 AM CDT Nichol Mcgee MD POCT ORDERABLES - DEVICE Fin al Result Performing Organization Address [facility] de Phone Number [facility] [address] [place] [address], * POCT glucose (11/22/2022 8:40 AM CDT) [facility] Signature GLUCOSE POC 98 70 - 99 mg/dL 11/22/2022 3:04 PM CDT [facility] 11/22/2022 8:40 AM CDT Nichol Mcgee MD POCT ORDERABLES - DEVICE Fin al Result Performing Organization Address [facility] de Phone Number [facility] [address] [place] [address], * Pathology (11/22/2022 12:00 AM CDT) Pathologist [facility] COPATH REPORT ?[facility] ? [address] [facility] ? [place], [place] [address] ? [id number] ? Department of Pathology ? Pathology Report ? SURGICAL FINAL REPORT Patient Name: KAROLINA RAMOS ? : 1955 (Age: 67) ?Location: [facility] Gender: F ?Collected Date: 11/22/2022 Med Rec #: [id number] ?Date Received: 11/22/2022 Date Reported: 11/23/2022 Provider: NICHOL MCGEE MD ?JACKI CABRERA MD Specimen(s) Mesh Final Pathologic Diagnosis MESH; REMOVAL: -GROSS EXAMINATION ONLY -PLEASE SEE GROSS DESCRIPTION Electronicall y Signed Out ? AMPARO SAMSON MD Pathologist IF:pb Clinical History Stress incontinence, female, overactive bladder, [...] gross only examination. :pb Billing Fee Code(s): 58297 [facility] TISSUE (OTHER (type in comments)) 11/22/2022 10:05 AM CDT Nichol Mcgee MD PATHOLOGY/CYTOLOGY ORDERABLE S Final Result [facility] [address] [place] [address], [place] [phone] documented in this encounter Visit Diagnoses Not [...] mL/min in patients with normal plasma volume. BUpivacaine-EPINEPHrine (PF) 0.25% -1:[id number] injection As needed, Starting on Rhoda 11/22/22 at 1001, Until Rhoda 7 at 1021, Intra-Op Given 11/22/2022 10:01 AM CDT 10 mLs Operative Site famotidine (PEPCID) tablet 20 mg 20 mg, [...] (COMPLETED) 500 mg, Intravenous, at 100 mL/hr, head buyer tobacco to O.R., 1 dose, First dose on [...] Order 11/20/2022 11/21/2022 11/22/2022 BUpivacaine-EPINEPHrine (PF) 0.25% -1:130514 injection (CANCELED) As needed, Starting on Rhoda 11/22/22 at 1001, Until Rhoda 11/22/22 at 1021, Intra-Op 1001 (Given - Provid er: Nichol Mcgee MD) documented in this encounter Additional Health Concerns Infection Onset Date Last Indicated Resolved Time MRSA 03/29/2017 03/29/2017 documented as of this encounter Care Teams Sanitary Plumber Relationship Specialty Start Date End Date Jacki Cabrera MD [address] [facility] [address] [place] [address] PCP - General INTERNAL MEDICINE 12/05/16 Lee Tomas MD [address] [place] [address] NEPHROLOGY 11/19/[address] [facility], [id number] [place] [address] [address] [place] [address] CARDIOVASCULAR DISEASE 11/19/22 documented as of this encounter
--- OUTSIDE RECORDS SUMMARY | 2024-05-11 12:09 | XMS_ITS | Encounter Summary ---
Author Organization [facility] Address [address] [facility] [place] [address] [place] [address] Care Team Providers Care Bunch Breaker Name Role Phone Jacki Cabrera MD Primary Care Provider Juvenal Sparrow MD Unavailable [phone] Encounter Details Date Type Department Care Team (Late st Contact Info) Description 01/04/2016 Orders Only [facility] CONVERSION [place], [place] [address] , Generic Conversion, Social History Tobacco Use [...] GLUCOSE - EAST DOCKED DEVICE Routine 01/04/2016 11:46 AM CDT documented in this encounter Results * POCT glucose (01/04/2016 11:46 AM CDT) GLUCOSE POC 85 70 - 109 01/04/2016 11:48 AM CDT [facility] ORDERS INTERFACE WHOLE BLOOD SPECIMEN / Unknown 01/04/2016 11:46 AM CDT 01/04/2016 11:48 AM CDT us Generic Conversion Md BREEN POCT ORDERABLES - DEVIC E Final Result [facility] ORDERS INTERFACE US documented in this encounter Visit Diagnoses Not on filedocumented in this encounter Additional Health Concerns Infection Onset Date Last Indicated Resolved Time MRSA 03/29/2017 03/29/2017 documented as of this encounter Care Teams Bunch Breaker Relationship Specialty Start Date End Date Jacki Cabrera MD [address] [address] PCP - General INTERNAL MEDICINE 12/05/16 Juvenal Sparrow MD [address] [place] [address] [place] Horticultural Farm Manager CARDIOVASCULAR DISEASE 12/05/16 11/18/22 documented as of this encounter
--- OUTSIDE RECORDS SUMMARY | 2024-05-11 12:10 | XMS_ITS | Encounter Summary ---
Author Organization [facility] Address [address] [place] [address] [place] [address] Care Team Providers Care Community Resource Consultant Name Role Phone Jacki Cabrera MD Primary Care Provider Juvenal Sparrow MD Unavailable [phone] Encounter Details Date Type Department Care Team (Late st Contact Info) Description 01/03/2016 Orders Only [facility] CONVERSION [place], [place] [address] , Generic Conversion, Social History Tobacco Use [...] Priority Date/Time Associated Diagnosis Comments C-REACTIVE PROTEIN STAT 01/03/2016 8: 25 PM CDT documented in this encounter Results * (ABNORMAL) C-REACTIVE PROTEIN (01/03/2016 8:25 PM CDT) C-REACTIVE PROTEIN 1.10(H) <0.6 mg/dL 01/03/2016 8:50 PM CDT [facility] SERUM OR PLASMA SPECIMEN / Unknown 01/03/2016 8:25 PM CDT 01/03/2016 8:26 PM CDT us Generic Conversion Md [facility] Final R esult [facility] [address] [place] [address], [id number] documented in this encounter Visit Diagnoses Not on filedocumented in this encounter Additional Health Concerns Infection Onset Date Last Indicated Resolved Time MRSA 03/29/2017 03/29/2017 documented as of this encounter Care Teams Community Resource Consultant Relationship Specialty Start Date End Date Jacki Cabrera MD [address] [address] PCP - General INTERNAL MEDICINE 12/05/16 Juvenal Sparrow MD [address] [place] [address] [place] Accounting Administrator CARDIOVASCULAR DISEASE 12/05/16 11/18/22 documented as of this encounter
--- OUTSIDE RECORDS SUMMARY | 2024-05-11 12:10 | XMS_ITS | Encounter Summary ---
Author Organization [facility] Address [address] [facility] [place] [address] [place] [address] Care Team Providers Care Refinery Operator Alkylation Name Role Phone Jacki Cabrear MD Primary Care Provider Juvenal Sparrow MD Unavailable Encounter Details Date Type Department Care Team (Late st Contact Info) Description 04/20/2008 Abstract [facility] Home Care [facility] [address] [facility] [address] [place] [address] , Robin Seymour MD Social History Tobacco Use Types Packs/Day Years Used Date Smoking Tobacco: Never Assessed Comments Unknown Sex and Gender Information Value Date Recorded Sex Assigned at Not on file Legal Sex Female 9:30 PM CDT Gender Identity Not on file Sexual Orientation Not on file documented as of this encounter Plan of Treatment Not on file documented as of this encounter Visit Diagnoses 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
--- OUTSIDE RECORDS SUMMARY | 2024-05-11 12:10 | XMS_ITS | Encounter Summary ---
Author Organization [facility] Address [address] [facility] [place] [address] [place] [address] Care Team Providers Care Nurse Sane Name Role Phone Jacki Cabrera MD Primary Care Provider Juvenal Sparrow MD Unavailable [phone] Encounter Details Date Type Department Care Team (Late st Contact Info) Description 09/03/2006 Abstract [facility] Home Care [facility] [address] [facility] [address] [place] [address] , Robin Seymour MD Social [...] documented as of this encounter Care Teams Nurse Sane Relationship Specialty Start Date End Date Jacki Cabrera MD [address] [facility] [address] [place] [address] PCP - General INTERNAL MEDICINE 12/05/16 Juvenal Sparrow MD [address] [place] [address] [employer] [place] [employer] History Teacher CARDIOVASCULAR DISEASE 12/05/16 11/18/22 documented as of this encounter
--- OUTSIDE RECORDS SUMMARY | 2024-05-11 12:10 | XMS_ITS | Encounter Summary ---
Author Organization [facility] Address [facility] [facility] [place] [address] [place] [address] Care Team Providers Care Ventilated Rib Fitter Name Role Phone Unavailable Primary Care Provider Unavailabl e Encounter Details Date Type Department Care Team (Late st Contact Info) Description 10/26/2014 Abstract [facility] [address] [place] [address] , Robin Seymour MD Social History Tobacco [...] Sign Reading Time Taken Comments Blood Pressure 134/70 10/26/2014 11:44 PM CDT Pulse 68 10/26/2014 11:44 PM CDT Temperature - - Respiratory Rate 14 10/26/2014 11:44 PM CDT Oxygen Saturation - - Inhaled Oxygen Concentration - - Weight 144.7 kg (319 lb) 10/26/2014 11:44 PM CDT Height 172.7 cm (5' 8 ) 10/26/2014 11:44 PM CDT Body Mass Index 48.5 10/26/2014 11:44 PM CDT documented in this encounter Plan of Treatment Not on file documented as of this encounter Visit Diagnoses Not on filedocumented in this encounter
--- OUTSIDE RECORDS SUMMARY | 2024-05-11 12:10 | XMS_ITS | Encounter Summary ---
Author Organization [facility] Address [facility] [facility] [place] [address] [place] [address] Care Team Providers Care Tour Conductor Name Role Phone Jacki Cabrera MD Primary Care Provider Juvenal Sparrow MD Unavailable [phone] Encounter Details Date Type Department Care Team (Late st Contact Info) Description 04/30/[address] 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
--- OUTSIDE RECORDS SUMMARY | 2024-05-11 12:10 | XMS_ITS | Encounter Summary ---
Author Organization [facility] Address [address] [facility] [place] [address] [place] [address] Care Team Providers Care Airline Pilot Flight Instructor Name Role Phone Jacki Cabrera MD Primary Care Provider Juvenal Sparrow MD Unavailable [phone] Encounter Details Date Type Department Care Team (Late st Contact Info) Description 09/06/2006 Abstract [facility] Home Care [facility] [address] [facility] [address] [place] [address] , Robin Seymour MD Social [...] documented as of this encounter Care Teams Airline Pilot Flight Instructor Relationship Specialty Start Date End Date Jacki Cabrera MD [address] [facility] [address] [place] [address] PCP - General INTERNAL MEDICINE 12/05/16 Juvenal Sparrow MD [address] [place] [address] [place] Costuming Supervisor CARDIOVASCULAR DISEASE 12/05/16 11/18/22 documented as of this encounter
--- OUTSIDE RECORDS SUMMARY | 2024-05-11 12:10 | XMS_ITS | Encounter Summary ---
Author Organization [facility] Address [address] [facility] [place] [address] [place] [address] Care Team Providers Care Commodity Management Specialist Name Role Phone Jacki Cabrera MD Primary Care Provider Juvenal Sparrow MD Unavailable [phone] Encounter Details Date Type Department Care Team (Late st Contact Info) Description 04/27/2008 Abstract [facility] Home Care [facility] [address] [facility] [facility] [address] [place] [address] , Robin Seymour MD Social [...] as of this encounter Visit Diagnoses Diagnosis Aftercare following joint replacement documented in this encounter Additional Health Concerns Infection Onset Date Last Indicated Resolved Time MRSA 03/29/2017 03/29/2017 documented as of this encounter Care Teams Commodity Management Specialist Relationship Specialty Start Date End Date Jacki Cabrera MD [address] [facility] [place] [address] PCP - General INTERNAL MEDICINE 12/05/16 Juvenal Sparrow MD [address] [place] [address] [place] Assembler [employer]inger Buffs CARDIOVASCULAR DISEASE 12/05/16 11/18/22 documented as of this encounter
--- OUTSIDE RECORDS SUMMARY | 2024-05-11 12:10 | XMS_ITS | Encounter Summary ---
Author Organization [facility] Address [facility]ly [facility] [place] [address] [place] [address] Care Team Providers Care Machine Cementer Name Role Phone Jacki Cabrera MD Primary Care Provider Juvenal Sparrow MD Unavailable [phone] Encounter Details Date Type Department Care Team (Late st Contact Info) Description 01/03/2016 Orders Only [place] CONVERSION [place], [place] [address] , Generic Conversion, Social History Tobacco Use [...] Name Priority Date/Time Associated Diagnosis Comments CBC W/DIFF AUTOMATED STAT 01/03/2016 8:25 PM CDT documented in this encounter Results * (ABNORMAL) CBC W/DIFF AUTOMATED (01/03/2016 8:25 PM CDT) WBC 9.2 4.0 - 10.8 x10'3/uL 01/03/2016 8:[address] [facility] RBC 4.72 4.10 - 5.40 x10'6/uL 01/03/2016 8:[address] [facility] HGB 14.7 12.0 - 16.0 G/DL 01/03/2016 8:[address] [facility] HCT 42.4 36.0 - 47.0 % 01/03/2016 8:[address] [facility] MCV 89.8 78.0 - 100.0 FL 01/03/2016 8:[address] [facility] MCH 31.1(H) 27.0 - 31.0 PG 01/03/2016 8:[address] [facility] MCHC 34.7 33.0 - 36.0 G/DL 01/03/2016 8:[address] [facility] RDW 13.4 11.5 - 14.5 % 01/03/2016 8:[address] [facility] PLT PLATELET CLUMPS PRESENT. ESTIMATE FROM SLIDE APPEARS TO BE WITHIN NORMAL RANGE 150 - 350 x10'3/uL 01/03/2016 9:[address] [facility] Comment:REORDER PLATELET COU NT IF ACTUAL VALUE IS CLINICALLY SIGNIFICANT MPV UNABLE TO PERFORM TEST 7.4 - 10.4 FL 01/03/2016 9:[address] [facility] ABS. NEUTROPHILS TOTAL 5.32 1.60 - 8.30 x10'3/uL 01/03/2016 8:[address] [facility] ABS. LYMPHOCYTES 2.71 0.80 - 4.70 x10'3/uL 01/03/2016 8:[address] [facility] ABS. MONOCYTES 0.81 0.00 - 1.50 x10'3/uL 01/03/2016 8:[address] [facility] ABS. EOSINOPHILS 0.23 0.00 - 0.40 x10'3/uL 01/03/2016 8:[address] [facility] ABS. BASOPHILS 0.05 0.00 - 0.20 x10'3/uL 01/03/2016 8:[address] [facility] ABS. IMMATURE GRANULOCYTES 0.04(H) 0.00 - 0.03 x10'3/uL 01/03/2016 8:[address] [facility] ABS. NUCLEATED RBC'S 0.00 0.0 x10'3/uL 01/03/2016 8:[address] [facility] PLASMA SPECIMEN / Unknown 01/03/2016 8:25 PM CDT 01/03/2016 8:26 PM CDT us Generic Conversion Md [facility] Final R esult [facility] [address] [place] [address], [id number] documented in this encounter Visit Diagnoses Not on filedocumented in this encounter Additional Health Concerns Infection Onset Date Last Indicated Resolved Time MRSA 03/29/2017 03/29/2017 documented as of this encounter Care Teams Machine Cementer Relationship Specialty Start Date End Date Jacki Cabrera MD [address] [facility] [address] [place] [address] PCP - General INTERNAL MEDICINE 12/05/16 Juvenal Sparrow MD [address] [place] [address] [place] Construction Safety Consultant CARDIOVASCULAR DISEASE 12/05/16 11/18/22 documented as of this encounter
--- OUTSIDE RECORDS SUMMARY | 2024-05-11 12:10 | XMS_ITS | Encounter Summary ---
Author Organization [facility] Address [address] [facility] [place] [address] [place] [address] Care Team Providers Care Manager Configuration Name Role Phone Jacki Cabrera MD Primary Care Provider Juvenal Sparrow MD Unavailable [phone] Encounter Details Date Type Department Care Team (Late st Contact Info) Description 01/03/2016 Orders Only [place]ARLIE CONVERSION [address] [place], [place] [id number] , Generic Conversion, Social History Tobacco Use [...] Date/Time Associated Diagnosis Comments BASIC METABOLIC PANEL STAT 01/03/2016 8:25 PM CDT documented in this encounter Results * (ABNORMAL) BASIC METABOLIC PANEL (01/03/2016 8:25 PM CDT) SODIUM S/P/B 139 135 - 147 MMOL/L 01/03/2016 8:50 PM CDT [facility] POTASSIUM S/P/B 3.4(L) 3.5 - 5.0 MMOL/L 01/03/2016 8:50 PM CDT [facility] Comment:SLIGHT HEMOLYSIS, RE SULT MAY BE AFFECTED. CHLORIDE S/P/B 104 98 - 107 MMOL/L 01/03/2016 8:50 PM CDT [facility] CO2 27.1 22 - 29 MMOL/L 01/03/2016 8:50 PM CDT [facility] GLUCOSE 99 70 - 109 MG/DL 01/03/2016 8:50 PM CDT [facility] BUN 5(L) 10 - 20 MG/DL 01/03/2016 8:50 PM CDT [facility] CREATININE S/P/B 0.68 0.60 - 1.10 MG/DL 01/03/2016 8:50 PM CDT [facility] CALCIUM S/P/B 10.4(H) 8.4 - 10.2 MG/DL 01/03/2016 8:50 PM CDT [facility] EGFR NON-AFR. AMER. 89 >60 ML/MIN/1.7 3 M2 01/03/2016 8:50 PM CDT [facility] EGFR AFR. AMER. 108 >60 ML/MIN/1.7 3 M2 01/03/2016 8:50 PM CDT [facility] ANION GAP 7.9 MMOL/L 01/03/2016 8:50 PM CDT [facility] OSMOLALITY (CALC) 275 MOSM/KG 01/03/2016 8:50 PM CDT [facility] PLASMA SPECIMEN / Unknown 01/03/2016 8:25 PM CDT 01/03/2016 8:26 PM CDT us Generic Conversion Md [facility] Final R esult [facility] [place] [address], [id number] documented in this encounter Visit Diagnoses Not on filedocumented in this encounter Additional Health Concerns Infection Onset Date Last Indicated Resolved Time MRSA 03/29/2017 03/29/2017 documented as of this encounter Care Teams Manager Configuration Relationship Specialty Start Date End Date Jacki Cabrera MD [address] [address] PCP - General INTERNAL MEDICINE 12/05/16 Juvenal Sparrow MD [address] [place] [address] [place] Hand Icer CARDIOVASCULAR DISEASE 12/05/16 11/18/22 documented as of this encounter
--- OUTSIDE RECORDS SUMMARY | 2024-05-11 12:10 | XMS_ITS | Encounter Summary ---
Author Organization [facility] Address [address] [facility] [place] [address] [place] [address] Care Team Providers Care Photoengraving Apprentice Name Role Phone Jacki Cabrera MD Primary Care Provider Juvenal Sparrow MD Unavailable [phone] Encounter Details Date Type Department Care Team (Late st Contact Info) Description 01/03/2016 Orders Only KARLIE CONVERSION [address] [place], [place] [id number] , Generic Conversion, Social History Tobacco Use [...] POCT GLUCOSE - EAST DOCKED DEVICE Routine 01/03/2016 9:18 PM CDT documented in this encounter Results * POCT glucose (01/03/2016 9:18 PM CDT) GLUCOSE POC 95 70 - 109 01/03/2016 9:26 PM CDT [facility] ORDERS INTERFACE WHOLE BLOOD SPECIMEN / Unknown 01/03/2016 9:18 PM CDT 01/03/2016 9:25 PM CDT us Generic Conversion Md BRE[facility] POCT ORDERABLES - DEVIC E Final Result [facility] ORDERS INTERFACE US documented in this encounter Visit Diagnoses Not on filedocumented in this encounter Additional Health Concerns Infection Onset Date Last Indicated Resolved Time MRSA 03/29/2017 03/29/2017 documented as of this encounter Care Teams Photoengraving Apprentice Relationship Specialty Start Date End Date Jacki Cabrera MD [address] [address] PCP - General INTERNAL MEDICINE 12/05/16 Juvenal Sparrow MD [address] [place] [address] [place] Wastewater Technician CARDIOVASCULAR DISEASE 12/05/16 11/18/22 documented as of this encounter
--- OUTSIDE RECORDS SUMMARY | 2024-05-11 12:10 | XMS_ITS | Encounter Summary ---
Author Organization [facility] Address [facility] [facility] [place] [address] [place] [address] Care Team Providers Care Lead Technician Name Role Phone Unavailable Primary Care Provider Unavailabl e Encounter Details Date Type Department Care Team (Late st Contact Info) Description 05/18/2014 Abstract [facility] [address] [place] [address] , Robin Seymour MD Social History Tobacco [...]
--- OUTSIDE RECORDS SUMMARY | 2024-05-11 12:10 | XMS_ITS | Encounter Summary ---
Author Organization [facility] Address [address] [facility] 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
--- OUTSIDE RECORDS SUMMARY | 2024-05-11 12:10 | XMS_ITS | Encounter Summary ---
Author Organization [facility] Address [facility] [facility] [place] [address] [place] [address] Care Team Providers Care Pack Room Operator Name Role Phone Jacki Cabrera MD Primary Care Provider Juvenal Sparrow MD Unavailable [phone] Encounter Details Date Type Department Care Team (Late st Contact Info) Description 01/04/2016 Orders Only KARLIE CONVERSION [address] [place], [place] [address] , Generic Conversion, Social History Tobacco Use [...] Date/Time Associated Diagnosis Comments CBC W/DIFF AUTOMATED TIMED 01/04/2016 3:41 AM CDT documented in this encounter Results * (ABNORMAL) CBC W/DIFF AUTOMATED (01/04/2016 3:41 AM CDT) WBC 8.2 4.0 - 10.8 x10'3/uL 01/04/2016 4:00 AM CDT [facility] RBC 4.40 4.10 - 5.40 x10'6/uL 01/04/2016 4:00 AM CDT [facility] HGB 13.7 12.0 - 16.0 G/DL 01/04/2016 4:00 AM CDT [facility] HCT 39.6 36.0 - 47.0 % 01/04/2016 4:00 AM CDT [facility] MCV 90.0 78.0 - 100.0 FL 01/04/2016 4:00 AM CDT [facility] MCH 31.1(H) 27.0 - 31.0 PG 01/04/2016 4:00 AM CDT [facility] MCHC 34.6 33.0 - 36.0 G/DL 01/04/2016 4:00 AM T [facility] RDW 13.5 11.5 - 14.5 % 01/04/2016 4:00 AM T [facility] PLT 145(L) 150 - 350 x10'3/uL 01/04/2016 4:00 AM CDT [facility] MPV 12.3(H) 7.4 - 10.4 FL 01/04/2016 4:00 AM CDT [facility] ABS. NEUTROPHILS TOTAL 4.47 1.60 - 8.30 x10'3/uL 01/04/2016 4:00 AM CDT [facility] ABS. LYMPHOCYTES 2.58 0.80 - 4.70 x10'3/uL 01/04/2016 4:00 AM CDT [facility] ABS. MONOCYTES 0.82 0.00 - 1.50 x10'3/uL 01/04/2016 4:00 AM CDT [facility] ABS. EOSINOPHILS 0.24 0.00 - 0.40 x10'3/uL 01/04/2016 4:00 AM T [facility] ABS. BASOPHILS 0.04 0.00 - 0.20 x10'3/uL 01/04/2016 4:00 AM CDT [facility] ABS. IMMATURE GRANULOCYTES 0.02 0.00 - 0.03 x10'3/uL 01/04/2016 4:00 AM CDT [facility] ABS. NUCLEATED RBC'S 0.00 0.0 x10'3/uL 01/04/2016 4:00 AM CDT [facility] PLASMA SPECIMEN / Unknown 01/04/2016 3:41 AM CDT 01/04/2016 3:43 AM CDT us Generic Conversion Md [facility] Final R esult [facility] [address] [place] [address], [id number] documented in this encounter Visit Diagnoses Not on filedocumented in this encounter Additional Health Concerns Infection Onset Date Last Indicated Resolved Time MRSA 03/29/2017 03/29/2017 documented as of this encounter Care Teams Pack Room Operator Relationship Specialty Start Date End Date Jacki Cabrera MD [address] [address] PCP - General INTERNAL MEDICINE 12/05/16 Juvenal Sparrow MD [address] [place] [address] [place] On Site Nurse CARDIOVASCULAR DISEASE 12/05/16 11/18/22 documented as of this encounter
--- OUTSIDE RECORDS SUMMARY | 2024-05-11 12:10 | XMS_ITS | Encounter Summary ---
Author Organization [facility] Address [address] [facility] [place] [address] [place] [address] Care Team Providers Care Analyst Geochemical Prospecting Name Role Phone Jacki Cabrera MD Primary Care Provider Juvenal Sparrow MD Unavailable [phone] Encounter Details Date Type Department Care Team (Late st Contact Info) Description 01/06/2014 Abstract [facility] [address] [place], [place] [id number] Christoph James MD [address] [place] [id number] Social History Tobacco Use Types Packs/Day Years [...] documented as of this encounter Care Teams Analyst Geochemical Prospecting Relationship Specialty Start Date End Date Jacki Cabrera MD [address] [facility] [address] [place] [address] PCP - General INTERNAL MEDICINE 12/05/16 Juvenal Sparrow MD [address] [place] [address] [place] Survey Superintendent CARDIOVASCULAR DISEASE 12/05/16 11/18/22 documented as of this encounter
--- OUTSIDE RECORDS SUMMARY | 2024-05-11 12:10 | XMS_ITS | Encounter Summary ---
Author Organization [facility] Address [address] [facility] [place] [address] [place] [address] Care Team Providers Care Supervisor [employer] Tree [employer] Name Role Phone Jacki Cabrera MD Primary Care Provider Juvenal Sparrow MD Unavailable [phone] Encounter Details Date Type Department Care Team (Late st Contact Info) Description 01/12/2014 Abstract [facility] [address] [place] [id number] Christoph James MD [address] [place] [id number] Social History Tobacco Use Types Packs/Day Years [...] documented as of this encounter Care Teams Supervisor [employer] Relationship Specialty Start Date End Date Jacki Cabrera MD [address] [facility] [address] [place] [address] PCP - General INTERNAL MEDICINE 12/05/16 Juvenal Sparrow MD [address] [place] [address] [place] Recycling Specialist CARDIOVASCULAR DISEASE 12/05/16 11/18/22 documented as of this encounter
--- OUTSIDE RECORDS SUMMARY | 2024-05-11 12:10 | XMS_ITS | Encounter Summary ---
Author Organization [facility] Address [facility] [facility] [place] [address] [place] [address] Care Team Providers Care Desk Monitor Name Role Phone Jacki Cabrera MD Primary Care Provider Juvenal Sparrow MD Unavailable [phone] Encounter Details Date Type Department Care Team (Late st Contact Info) Description 01/03/2016 Abstract [facility] [address] [place] [address] Armaan Quezada MD [address] [place] [address] Social History Tobacco Use Types Packs/Day Years Used Date Smoking Tobacco: Former Comments Unknown Sex and Gender Information Value Date Recorded Sex Assigned at Not on file Legal Sex Female 9:30 PM CDT Gender Identity Not on file Sexual Orientation Not on file documented as of this encounter Plan of Treatment Not on file documented as of this encounter Visit Diagnoses Diagnosis Effusion of left knee Effusion of lower leg joint documented in this encounter Additional Health Concerns Infection Onset Date Last Indicated Resolved Time MRSA 03/29/2017 03/29/2017 documented as of this encounter Care Teams Desk Monitor Relationship Specialty Start Date End Date Jacki Cabrera MD [address] [address] PCP - General INTERNAL MEDICINE 12/05/16 Juvenal Sparrow MD [address] [place] [phone] [place] Bioinformatics Programmer CARDIOVASCULAR DISEASE 12/05/16 11/18/22 documented as of this encounter
--- OUTSIDE RECORDS SUMMARY | 2024-05-11 12:10 | XMS_ITS | Encounter Summary ---
Author Organization [facility] Address [facility] [facility] [place] [address] [place] [address] Care Team Providers Care Casino Cashier Name Role Phone Unavailable Primary Care Provider Unavailabl e Encounter Details Date Type Department Care Team (Late st Contact Info) Description 05/18/2014 [facility] [address] [place] [address] , Robin Seyomur MD Social History Tobacco Use Types Packs/Day [...]
--- OUTSIDE RECORDS SUMMARY | 2024-05-11 12:10 | XMS_ITS | Encounter Summary ---
Author Organization [facility] Address [facility] [facility] [place] [address] [place] [address] Care Team Providers Care Parachute Taper Name Role Phone Jacki Cabrera MD Primary Care Provider Juvenal Sparrow MD Unavailable [phone] Encounter Details Date Type Department Care Team (Late st Contact Info) Description 01/03/2016 Orders Only [place]IE CONVERSION [place], [place] [address] , Generic Conversion, Social History Tobacco Use [...] Procedure Name Priority Date/Time Associated Diagnosis Comments SED RATE, ERYTHROCYTE (ESR) STAT 01/03/2016 8:25 PM CDT documented in this encounter Results * SED RATE, ERYTHROCYTE (ESR) (01/03/2016 8:25 PM CDT) ESR 18 0 - 20 MM/HR 01/03/2016 9:31 PM CDT [facility] WHOLE BLOOD SPECIMEN / Unknown 01/03/2016 8:25 PM CDT 01/03/2016 8:26 PM CDT us Generic Conversion Md [facility] Final R esult [facility] [address] [place] [address], [id number] documented in this encounter Visit Diagnoses Not on filedocumented in this encounter Additional Health Concerns Infection Onset Date Last Indicated Resolved Time MRSA 03/29/2017 03/29/2017 documented as of this encounter Care Teams Parachute Taper Relationship Specialty Start Date End Date Jacki Cabrera MD [address] [address] PCP - General INTERNAL MEDICINE 12/05/16 Juvenal Sparrow MD [address] [place] [address] [place] Call Center Consultant CARDIOVASCULAR DISEASE 12/05/16 11/18/22 documented as of this encounter
--- OUTSIDE RECORDS SUMMARY | 2024-05-11 12:10 | XMS_ITS | Encounter Summary ---
Author Organization [facility] Address [facility] [place] [address] [place] [address] Care Team Providers Care Warehouse Administrator Name Role Phone Unavailable Primary Care Provider Unavailabl e Encounter Details Date Type Department Care Team (Late st Contact Info) Description 10/26/2014 [facility] [address] [place] [address] , Robin Seymour MD Social History Tobacco [...]
--- OUTSIDE RECORDS SUMMARY | 2024-05-11 12:19 | XMS_ITS | Encounter Summary ---
Author Organization [facility] [employer] [facility] Address [address] [place] [address] Care Team Providers Care Ditcher Name Role Phone Jacki Cabrera MD Primary Care Provider Reason for Visit * Reason Comments Follow Up Encounter Details Date Type Department Care Team ([facility] st Contact Info) Description 10/17/2023 8:30 AM CDT Office Visit [facility] Oncology and Hematology - Yakov [address] [facility] [address] [place] [address] Venkatesh Bolanos MD [address] [place] [address] Follicular lymphoma, unspecified follicular lymphoma type, unspecified body region (Primary Dx) Social History Tobacco Use Types Packs/Day Years Used Date Smoking Tobacco: Every Day Cigarettes 0.3 0.8 Started: 08/05/2023 Smokeless Tobacco: Never Alcohol Use Standard Drinks/Week Comments Yes 0 (1 standard drink = 0.6 oz pur e alcohol) socially Sex and Gender Information Value Date Recorded Sex Assigned at Not on file Gender Identity Not on file Sexual Orientation Not on file documented as of this encounter Last Filed Vital Signs Vital Sign Reading Time Taken Comments Blood Pressure 148/93 10/17/2023 8:43 AM CDT Pulse 91 10/17/2023 8:42 AM CDT Temperature 35.9 ??C (96.6 ??F) 10/17/2023 8:42 AM CD T Respiratory Rate 14 10/17/2023 8:42 AM CDT Oxygen Saturation 96% 10/17/2023 8:42 AM CDT Inhaled Oxygen Concentration - - Weight 104.3 kg (230 lb) 10/17/2023 8:42 AM CDT Height - - Body Mass Index 34.97 04/02/2023 1:37 PM AQUA AMMONIA OPERATOR documented in this encounter Progress Notes * Venkatesh Bolanos MD - 10/17/2023 9:40 AM CDT HEMATOLOGY / ONCOLOGY PROGRESS NOTE Patient Identification: Name: Karolina Ramos Age: 68 y.o. Sex: female : 1955 DIAGNOSIS Follicular lymphoma stage III disease status post left axillary lymph node biopsy done on April 26, 2023 CURRENT TREATMENT Chemotherapy with Bendamustine and Rituxan cycle 1 started on June 20, 2023. TREATMENT HISTORY SUBJECTIVE Patient came to the office for follow-up visit and cycle 5 of chemotherapy with Bendamustine and Rituxan. She has been tolerating chemotherapy well. Denies any nausea vomiting. No diarrhea and constipation. No other new complaints. Review of system Constitutional: Patient did not mention fevers, sweats, weight and appetite stable, denies any tiredness and fatigue HEENT: Patient did not mention sinus congestion, hearing or vision problems Respiratory: Patient did not mention cough, dyspnea, wheeze Cardiovascular: Patient did not mention chest pain, exertional chest pressure/discomfort, nausea, syncope, shortness of breath GI: Patient did not mention constipation, diarrhea, dsyphagia, reflux symptoms, vomiting, melena, occasional nausea : Patient did not mention dysuria, frequency, incontinence, urgency Integumentary system: no lymphadenopathy, sweats, flushing Musculoskeletal: Patient not mention: myalgia, arthralgia Neurological: Patient did not mention blurry or disturbed vision, numbness/weakness, dizziness Skin: No lumps, bumps or rashes. 12 point review of system was reviewed Objective: Vital signs in last 24 hours: As per nursing note Exam: General appearance: alert, cooperative, no distress, appears stated age Head: normocephalic, without obvious abnormality, atraumatic Eyes: conjunctivae/corneas clear, EOM's intact Ears: normal external ear canals AU Nose: Nares normal. Septum midline. Mucosa normal. No drainage or sinus tenderness Throat: Lips, mucosa, and tongue normal. Teeth and gums normal Neck: supple, symmetrical, trachea midline. Lungs: clear to auscultation bilaterally Heart: regular rate and rhythm, S1, S2 normal, no murmur, click, rub or gallop Abdomen: soft, non-tender. Bowel sounds normal. No masses, No organomegaly Extremities: extremities normal, atraumatic, no cyanosis or edema Skin: Skin color, texture, turgor normal. No rashes or lesions Lymph nodes: No lymphadenopathy Neuro: No obvious focal deficit Exam as above PATH LABS Labs from April 02 showed calcium 11.1 protein 9.0 alkaline phosphatase 239 creatinine 0.7 WBC 11.1 hemoglobin 14 platelet 240,000 neutrophils 68% lymphocyte 21% Labs from July 17 showed WBC 7.2 hemoglobin 13.6 platelet 138,000 creatinine 0.7 calcium 10.1 protein 6.0 Labs from August 21 showed WBC 6.7 hemoglobin 14.2 platelet 1 45,000 creatinine 0.6 Labs from September 18 showed WBC 11.3 hemoglobin 15.4 platelet 1 35,000 creatinine 0.6 Labs from October 16 showed WBC 4.2 hemoglobin 13 platelet 1 35,000 creatinine 0.8 Assessment: Plan: Patient Active Problem List Diagnosis Date Noted Tobacco use 01/06/2019 Follicular lymphoma stage III disease status post left axillary lymph node biopsy done on April 26, 2023 PET scan done on March 14 showed hypermetabolic lymphadenopathy in the left axilla, mesentery andright external iliac chain. These findings are worrisome for lymphoproliferative disorder. Peripheral smear review showed finding consistent with reactive process and flow cytometric analysis showed no evidence of lymphoma. Patient is started chemotherapy with Bendamustine Rituxan on 09/18/2023. Labs noted. Will proceed with cycle 5 of chemotherapy today. I will see her back in 4 weeks. Imaging studies will be done after cycle 6. She has been tolerating chemotherapy well. Chemotherapy-induced nausea. Patient will continue Zofran as needed. Peripheral neuropathy. Stable on gabapentin. Psoriatic arthritis. Stable on methotrexate and prednisone. Type 2 diabetes. She is on Ozempic. Follow-up in 4 weeks. TOBACCO COUNSELING She is not a tobacco/nicotine user. 10/17/2023 Venkatesh Bolanos MD documented in this encounter Plan of Treatment Upcoming Encounters Date Type Department Care Team (Late st Contact Info) Description 05/13/2024 9:15 AM AQUA AMMONIA OPERATOR Office Visit [facility] Oncology and Hematology - Yakov [address] [facility] [address] [place] [address] Venkatesh Bolanos MD [address] [place] [address] Scheduled Orders Name Type Priority Associated Diagnoses Orde r Schedule CBC WITH DIFFERENTIAL Lab Stat Follicular lymphoma, unspecified follicular lymphoma type, unspecified body region Expected: 11/14/2023, Expires: 10/16/2024 BASIC METABOLIC PANEL Lab Stat Follicular lymphoma, unspecified follicular lymphoma type, unspecified body region Expected: 11/14/2023, Expires: 10/16/2024 documented as of this encounter Visit Diagnoses Diagnosis Follicular lymphoma, unspecified follicular lymphoma type, unspecified body region- Primary documented in this encounter Care Teams Ditcher Relationship Specialty Start Date End Date Jacki Cabrera MD PCP - General Internal Medicine 01/06/19 documented as of this encounter
--- OUTSIDE RECORDS SUMMARY | 2024-05-11 12:19 | XMS_ITS | Encounter Summary ---
Author Organization [facility] [employer] [facility] Address [address] [address] Care Team Providers Care Road Maker Name Role Phone Jacki Cabrera MD Primary Care Provider Encounter Details Date Type Department Care Team ([facility] Contact Info) Description 11/14/2023 Orders Only [facility] Oncology and Hematology [facility] [address] [place] [address] Venkatehs Bolanos MD [facility] [address] [place] [phone] Social History Tobacco Use Types Packs/Day Years [...] as of this encounter Plan of Treatment Upcoming Encounters Date Type Department Care Team (Late Contact Info) Description 05/13/2024 9:15 AM FRONT DESK ASSOCIATE Office Visit [facility] Oncology and Hematology Y[place] [address] [place] [address] Venkatesh Bolanos MD [facility] [address] [place] [phone] documented as of this encounter Procedures Procedure Name Priority Date/Time Associated Diagnosis Comments BASIC METABOLIC PANEL Routine 11/14/2023 3:37 PM CDT COMPREHENSIVE METABOLIC PANEL Routine 11/14/2023 3:34 PM CDT documented in this encounter Results * BASIC METABOLIC PANEL (11/14/2023 3:37 PM CDT) Blood Venkatesh Bolanos MD CHEMISTRY ORDERABLES * COMPREHENSIVE METABOLIC PANEL (11/14/2023 3:34 PM CDT) Blood Venkatesh Bolanos MD CHEMISTRY ORDERABLES documented in this encounter Visit Diagnoses Not on filedocumented in this encounter Care Teams Road Maker Relationship Specialty Start Date End Date Jacki Cabrera MD PCP - General Internal Medicine 01/06/19 documented as of this encounter
--- OUTSIDE RECORDS SUMMARY | 2024-05-11 12:19 | XMS_ITS | Encounter Summary ---
Author Organization [facility] [employer] [facility] Address [address] [place] [address] Care Team Providers Care Business Analyst Intern Name Role Phone Jacki Cabrera MD Primary Care Provider Encounter Details Date Type Department Care Team (Late Contact Info) Description 10/17/[address] [facility] Oncology and Hematology [facility] [address] [place] [address] Venkatesh Bolanos MD [facility] [employer] [address] [place] [phone] Social History Tobacco Use Types Packs/Day [...] (Late Contact Info) Description 05/13/2024 9:15 AM RETAIL STORE MANAGER Office Visit [facility] Oncology and Hematology [place] [address] [place] [address] Venkatesh Bolanos MD [facility] [employer] [address] [place] [phone] documented as of this encounter Procedures Procedure Name Priority Date/Time Associated Diagnosis Comments BASIC METABOLIC PANEL Routine 10/17/2023 11:28 AM CDT COMPREHENSIVE METABOLIC PANEL Routine 10/17/2023 11:25 AM CDT documented in this encounter Results * BASIC METABOLIC PANEL (10/17/2023 11:28 AM CDT) Blood Venkatesh Bolanos MD CHEMISTRY ORDERABLES * COMPREHENSIVE METABOLIC PANEL (10/17/2023 11:25 AM CDT) Blood Venkatesh Bolanos MD CHEMISTRY ORDERABLES documented in this encounter Visit Diagnoses Not on filedocumented in this encounter Care Teams Business Analyst Intern Relationship Specialty Start Date End Date Jacki Cabrera MD PCP - General Internal Medicine 01/06/19 documented as of this encounter
--- OUTSIDE RECORDS SUMMARY | 2024-05-11 12:19 | XMS_ITS | Encounter Summary ---
Author Organization [facility] [employer] [facility] Address [address] [place] [address] Care Team Providers Care Mortgage Protection Specialist Name Role Phone Jacki Cabrera MD Primary Care Provider Encounter Details Date Type Department Care Team ([facility] Contact Info) Description 07/29/2023 Orders Only [facility] Oncology and Hematology [facility] [address] [place] [address] Venkatesh Bolanos MD [facility] [employer] [address] [place] [phone] Follicular lymphoma, unspecified follicular lymphoma type, unspecified body region Social History Tobacco Use Types Packs/Day Years Used Date Smoking Tobacco: Every Day Cigarettes Smokeless Tobacco: Never Alcohol Use Standard Drinks/Week [...] (Late Contact Info) Description 05/13/2024 9:15 AM ENVIRONMENTAL AIR SPECIALIST Office Visit [facility] Oncology and Hematology Yakov [address] [place] [address] Venkatesh Bolanos MD [facility] [employer] [address] [place] [phone] documented as of this encounter Visit Diagnoses Diagnosis Follicular lymphoma, unspecified follicular lymphoma type, unspecified body region documented in this encounter Care Teams Mortgage Protection Specialist Relationship Specialty Start Date End Date Jacki Cabrera MD PCP - General Internal Medicine 01/06/19 documented as of this encounter
--- OUTSIDE RECORDS SUMMARY | 2024-05-11 12:19 | XMS_ITS | Encounter Summary ---
Author Organization [facility] Address [address] [place] [address] Care Team Providers Care Driver Name Role Phone Jacki Cabrera MD Primary Care Provider Encounter Details Date Type Department Care Team ([facility] Contact Info) Description 03/09/2024 Orders Only [facility] Oncology and [facility] [address] [place] [address] Venkatesh Bolanos MD [address] [place], [place] [address] [address] [place] [phone] Follicular lymphoma, unspecified follicular lymphoma type, [...] (Late Contact Info) Description 05/13/2024 9:15 AM GAMING ASSOCIATE Office Visit [facility] Oncology and Hematology [facility] [address] [place] [address] Venkatesh Bolanos MD [facility] [employer] [address] [place] [phone] documented as of this encounter Visit Diagnoses Diagnosis Follicular lymphoma, unspecified follicular lymphoma type, unspecified body region documented in this encounter Care Teams Driver Relationship Specialty Start Date End Date Jacki Cabrera MD PCP - General Internal Medicine 01/06/19 documented as of this encounter
--- OUTSIDE RECORDS SUMMARY | 2024-05-11 12:19 | XMS_ITS | Encounter Summary ---
Author Organization [facility] Address [address] [place] [address] Care Team Providers Care Stock Preparer Name Role Phone Jacki Cabrera MD Primary Care Provider Reason for Referral * CT Scan (Routine) - Closed Specialty Diagnoses / Procedures Referred By Calvin bentley Referred To Contact Diagnoses Follicular lymphoma, unspecified follicular lymphoma type, unspecified body region Procedures CT CHEST ABDOMEN PELVIS W CONT Venkatesh Bolanos MD [address] [place] [phone] [place] [address] Referral ID Status Reason Start Date Expiration Date V isits Requested Visits Authorized [id number] Closed [facility] CTS 03/04/2024 04/04/2025 1 1 Reason for Visit * Reason Comments Cancer Follow Up Encounter Details Date Type Department Care Team (Late st Contact Info) Description 03/04/2024 9:45 AM CDT Office Visit [facility] Oncology and Hematology [address] [facility] [address] [place] [address] Venkatesh Bolanos MD [address] [place] [address] Follicular lymphoma, unspecified follicular lymphoma type, unspecified body region (Primary Dx) Social History Tobacco Use Types Packs/Day Years Used Date Smoking Tobacco: Every Day Cigarettes 0.3 0.8 Started: 08/05/2023 Smokeless Tobacco: Never Tobacco Cessation:Ready to Q uit: Not Asked; Counseling Given: Not Answered Alcohol Use Standard Drinks/Week Comments Yes 0 (1 standard drink = 0.6 oz pur e alcohol) socially Sex and Gender Information Value Date Recorded Sex Assigned at Not on file Gender Identity Not on file Sexual Orientation Not on file documented as of this encounter Last Filed Vital Signs Vital Sign Reading Time Taken Comments Blood Pressure 122/68 03/04/2024 9:15 AM CDT Pulse 90 03/04/2024 9:11 AM CDT Temperature 36.7 ??C (98 ??F) 03/04/2024 9:11 AM CDT Respiratory Rate 17 03/04/2024 9:11 AM CDT Oxygen Saturation 94% 03/04/2024 9:11 AM CDT Inhaled Oxygen Concentration - - Weight 104.2 kg (229 lb 12.8 oz) 03/04/2024 9:11 AM CDT Height - - Body Mass Index 34.94 04/02/2023 1:37 PM GOSPEL SINGER documented in this encounter Progress Notes * Venkatesh Bolanos MD - 03/04/2024 9:54 AM CDT HEMATOLOGY / ONCOLOGY PROGRESS NOTE Patient Identification: Name: Karolina Ramos Age: 68 y.o. Sex: female : 1955 DIAGNOSIS Follicular lymphoma stage III disease status post left axillary lymph node biopsy done on April 26, 2023 CURRENT TREATMENT Maintenance Rituxan on every 2 months basis started on January 22, 2024. TREATMENT HISTORY Chemotherapy with Bendamustine and Rituxan cycle 1 started on June 20, 2023. Chemotherapy completed November 14, 2023 SUBJECTIVE Patient came to the office for follow-up visit and continuation of maintenance chemotherapy. She had endoscopy done on February 19 that showed some gastritis. Denies any chest pain and shortness of breath. She has gained 7 pound weight. No other new complaint. Review of system Constitutional: Patient did not mention fevers, sweats, denies any tiredness and fatigue and 7 pound weight gain HEENT: Patient did not mention sinus congestion, hearing or vision problems Respiratory: Patient did not mention cough, dyspnea, wheeze Cardiovascular: Patient did not mention chest pain, exertional chest pressure/discomfort,syncope, shortness of breath GI: Patient did not mention dsyphagia, reflux symptoms, vomiting, melena,, and of occasional nauseawith intermittent diarrhea and constipation : Patient did not mention dysuria, frequency, [...] hemoglobin 13 platelet 1 35,000 creatinine 0.8 Labs from November 13 showed WBC 5.3 hemoglobin 13.6 platelet 1 37,000 creatinine 0.7 Labs from March 04 showed WBC 5.2 hemoglobin 12.7 platelet 1 57,000 creatinine 1.1 Assessment: Plan: Patient Active Problem List Diagnosis [...] started chemotherapy with Bendamustine Rituxan on 09/18/2023. Patient completed cycle 6/6of chemotherapy on November 14, 2023. CT chest abdomen and pelvis done on December 11 showed no evidence of lymphoma. Maintenance Rituxan treatment on every 2-month basis started on January 22, 2024. There is no evidence of lymphoma on my examination. Labs stable. I will see her back in [address] chest abdomen and pelvis. Peripheral neuropathy. Stable on gabapentin. Psoriatic arthritis. Stable on methotrexate and prednisone. Type 2 diabetes. Patient is on Ozempic. Follow-up in 2 months. 03/04/2024 Venkatesh Bolanos MD documented in this encounter Plan of Treatment Upcoming Encounters Date Type Department Care Team (Late st Contact Info) Description 05/13/2024 9:15 AM GOSPEL SINGER Office Visit [facility] Oncology and Hematology - [place] [address] [facility] [address] [place] [address] Venkatesh Bolanos MD [address] [facility] [address] [place] [address] Scheduled Orders Name Type Priority Associated Diagnoses Orde r Schedule CBC WITH DIFFERENTIAL Lab Stat Follicular lymphoma, unspecified follicular lymphoma type, unspecified body region Expected: 04/29/2024, Expires: 03/04/2025 COMPREHENSIVE METABOLIC PANEL Lab Stat Follicular lymphoma, unspecified follicular lymphoma type, unspecified body region Expected: 04/29/2024, Expires: 03/04/2025 LACTATE DEHYDROGENASE Lab Routine Follicular lymphoma, unspecified follicular lymphoma type, unspecified body region Expected: 04/29/2024, Expires: 03/04/2025 CT CHEST ABDOMEN PELVIS W CONT Imaging Routine Follicular lymphoma, unspecified follicular lymphoma type, unspecified body region Expected: 05/04/2024, Expires: 03/04/2025 documented as of this encounter Visit Diagnoses Diagnosis Follicular lymphoma, unspecified follicular lymphoma type, unspecified body region- Primary documented in this encounter Care Teams Stock Preparer Relationship Specialty Start Date End Date Jacki Cabrera MD PCP - General Internal Medicine 01/06/19 documented as of this encounter
--- OUTSIDE RECORDS SUMMARY | 2024-05-11 12:19 | XMS_ITS | Encounter Summary ---
Author Organization [facility] [employer] [facility] Address [address] [place] [address] Care Team Providers Care Paper Bags Sewing Machine Operator Name Role Phone Jacki Cabrera MD Primary Care Provider Encounter Details Date Type Department Care Team (Late Contact Info) Description 12/18/2023 Orders Only [facility] Oncology and Hematology [facility] [address] [place] [address] Venkatesh Bolanos MD [address] [place], [place] [address] [address] [place] [phone] Social History Tobacco Use Types Packs/Day [...] (Late Contact Info) Description 05/13/2024 9:15 AM RETURNS PROCESSOR Office Visit [facility] Oncology and Hematology Yakov [address] [place] [address] Venkatesh Bolanos MD [facility] [employer] [facility] [address] [place] [phone] documented as of this encounter Procedures Procedure Name Priority Date/Time Associated Diagnosis Comments COMPREHENSIVE METABOLIC PANEL Routine 12/18/2023 3:58 PM CDT documented in this encounter Results * COMPREHENSIVE METABOLIC PANEL (12/18/2023 3:58 PM CDT) Blood Venkatesh Bolanos MD CHEMISTRY ORDERABLES documented in this encounter Visit Diagnoses Not on filedocumented in this encounter Care Teams Paper Bags Sewing Machine Operator Relationship Specialty Start Date End Date Jacki Cabrera MD PCP - General Internal Medicine 01/06/19 documented as of this encounter
--- OUTSIDE RECORDS SUMMARY | 2024-05-11 12:19 | XMS_ITS | Encounter Summary ---
Author Organization [facility] [employer] [facility] Address [address] [place] [address] Care Team Providers Care Tooth Cutter Pinion Name Role Phone Jacki Cabrera MD Primary Care Provider Reason for Visit * Reason Onset Date Comments Medication Refill 02/27/2024 Encounter Details Date Type Department Care Team ([facility] Contact Info) Description 02/27/2024 Refill [facility] Oncology [facility] [address] [place] [address] Venkatesh Bolanos MD [facility] [employer] [address] [place] [phone] Follicular lymphoma, unspecified follicular lymphoma type, [...] Upcoming Encounters Date Type Department Care Team ([facility] Contact Info) Description 05/13/2024 9:15 AM MARKETING SECRETARY Office Visit [facility] Oncology and Hematology [facility] [place] [address] [place] [address] Venkatesh Bolanos MD [address] [employer] [address] [place] [phone] documented as of this encounter Visit Diagnoses Diagnosis Follicular lymphoma, unspecified follicular lymphoma type, unspecified body region documented in this encounter Care Teams Tooth Cutter Pinion Relationship Specialty Start Date End Date Jacki Cabrera MD PCP - General Internal Medicine 01/06/19 documented as of this encounter
--- OUTSIDE RECORDS SUMMARY | 2024-05-11 12:19 | XMS_ITS | Encounter Summary ---
Author Organization [facility] Address [address] [place] [address] Care Team Providers Care Accounting Generalist Name Role Phone Jacki Cabrera MD Primary Care Provider Encounter Details Date Type Department Care Team (Late st Contact Info) Description 01/01/2024 External Device Data [facility] ABSTRACTION Provider, Abstract NO ADDRESS ON FILE Social History Tobacco Use Types Packs/Day Years [...] st Contact Info) Description 05/13/2024 9:15 AM BUMBOATER Office Visit [facility] Oncology and Hematology - Yakov [address] [facility] [address] [place] [address] Venkatesh Bolanos MD [address] [facility] [address] [place] [address] documented as of this encounter Visit Diagnoses Not on filedocumented in this encounter Care Teams Accounting Generalist Relationship Specialty Start Date End Date Jacki Cabrera MD PCP - General Internal Medicine 01/06/19 documented as of this encounter
--- OUTSIDE RECORDS SUMMARY | 2024-05-11 12:19 | XMS_ITS | Encounter Summary ---
Author Organization [facility] Address [address] [place] [address] Care Team Providers Care Turn Down Attendant Name Role Phone Jacki Cabrera MD Primary Care Provider Encounter Details Date Type Department Care Team (Late st Contact Info) Description 11/05/2023 External Device Data STL ABSTRACTION Provider, Abstract [...] st Contact Info) Description 05/13/2024 9:15 AM CLIENT RELATIONS ASSOCIATE Office Visit [facility] Oncology and Hematology - Yakov [address] [facility] [address] [place] [address] Venkatesh Bolanos MD [address] [facility] [address] [place] [address] documented as of this encounter Visit Diagnoses Not on filedocumented in this encounter Care Teams Turn Down Attendant Relationship Specialty Start Date End Date Jacki Cabrera MD PCP - General Internal Medicine 01/06/19 documented as of this encounter
--- OUTSIDE RECORDS SUMMARY | 2024-05-11 12:19 | XMS_ITS | Encounter Summary ---
Author Organization [facility] Address [address] [place] [address] Care Team Providers Care Seed Cleaner Name Role Phone Jacik Cabrera MD Primary Care Provider Encounter Details Date Type Department Care Team (Late st Contact Info) Description 10/22/2023 External Device Data STL ABSTRACTION Provider, Abstract [...] st Contact Info) Description 05/13/2024 9:15 AM LOADING MACHINE OPERATOR HELPER Office Visit [facility] Oncology and Hematology - Yakov [address] [facility] [address] [place] [address] Venkatesh Bolanos MD [address] [facility] [address] [place] [address] documented as of this encounter Visit Diagnoses Not on filedocumented in this encounter Care Teams Seed Cleaner Relationship Specialty Start Date End Date Jacki Cbarera MD PCP - General Internal Medicine 01/06/19 documented as of this encounter
--- OUTSIDE RECORDS SUMMARY | 2024-05-11 12:19 | XMS_ITS | Encounter Summary ---
Author Organization [facility] DEVIKA Cassidy [facility] Address [address] [place] [address] Care Team Providers Care Brick Pitcher Name Role Phone Jacki Cabrera MD Primary Care Provider Reason for Referral * CT Scan (Routine) - Closed Specialty Diagnoses / Procedures Referred By Calvin bentley Referred To Contact Diagnoses Follicular lymphoma, unspecified follicular lymphoma type, unspecified body region Procedures CT CHEST ABDOMEN PELVIS W CONT Venkatesh Bolanos MD [address] [employer] [address] [place] [phone] [place] [address] Referral ID Status Reason Start Date Expiration Date V isits Requested Visits Authorized [id number] Closed STL CTS 11/14/2023 12/14/2024 1 1 Reason for Visit * Reason Comments Cancer Chemotherapy Encounter Details Date Type Department Care Team (Late st Contact Info) Description 11/14/2023 9:00 AM CDT Office Visit [facility] Oncology and Hematology [address] [facility] [address] [place] [address] Venkatesh Bolanos MD [address] [employer] [address] [place] [address] Follicular lymphoma, unspecified follicular lymphoma [...] Sign Reading Time Taken Comments Blood Pressure 144/95 11/14/2023 9:15 AM CDT Pulse 85 11/14/2023 9:15 AM CDT Temperature 36.6 ??C (97.8 ??F) 11/14/2023 9:13 AM CD T Respiratory Rate 18 11/14/2023 9:13 AM CDT Oxygen Saturation 96% 11/14/2023 9:13 AM CDT Inhaled Oxygen Concentration - - Weight 100.7 kg (222 lb) 11/14/2023 9:13 AM CDT Height - - Body Mass Index 33.75 04/02/2023 1:37 PM HOUSEMAN documented in this encounter Progress Notes * Venkatesh Bolanos MD - 11/14/2023 9:54 AM CDT HEMATOLOGY / ONCOLOGY PROGRESS [...] to the office for follow-up visit and chemotherapy cycle #6 today. She has been tolerating chemotherapy well other than intermittent diarrhea and constipation. Denies any chest pain and abdominal pain. She also have intermittent nausea. No other new complaints. Review of system Constitutional: Patient did not mention fevers, sweats, denies tiredness and fatigue, weight and appetite stable HEENT: Patient did not mention sinus congestion, [...] hemoglobin 13.6 platelet 1 37,000 creatinine 0.7 Assessment: Plan: Patient Active Problem List Diagnosis [...] started chemotherapy with Bendamustine Rituxan on 09/18/2023. Lab noted. She has been tolerating chemotherapy well. Will proceed with cycle #6/6 of chemotherapy today. Follow-up in [address] scan will be done in 4 weeks. After completion of chemotherapy we will discuss maintenance chemotherapy for follicular lymphoma. Chemo therapy induced nausea. Patient will receive refill on Zofran today. Peripheral neuropathy. Stable on gabapentin. Psoriatic arthritis. Stable on methotrexate and prednisone. Type 2 diabetes. She is on Ozempic. Follow-up in 5 weeks. TOBACCO COUNSELING She is not a tobacco/nicotine user. 11/14/2023 Venkatesh Bolanos MD documented in this encounter Plan of Treatment Upcoming Encounters Date Type Department Care Team (Late st Contact Info) Description 05/13/2024 9:15 AM HOUSEMAN Office Visit [facility] Oncology and Hematology [facility] [address] [facility] [address] [place] [phone] Venkatesh Bolanos MD [address] [facility] [address] [place] [address] Scheduled Orders Name Type Priority Associated Diagnoses Orde r Schedule CBC WITH DIFFERENTIAL Lab Stat Follicular lymphoma, unspecified follicular lymphoma type, unspecified body region Expected: 12/12/2023, Expires: 11/13/2024 COMPREHENSIVE METABOLIC PANEL Lab Stat Follicular lymphoma, unspecified follicular lymphoma type, unspecified body region Expected: 12/12/2023, Expires: 11/13/2024 LACTATE DEHYDROGENASE Lab Stat Follicular lymphoma, unspecified follicular lymphoma type, unspecified body region Expected: 12/12/2023, Expires: 11/13/2024 CT CHEST ABDOMEN PELVIS W CONT Imaging Routine Follicular lymphoma, unspecified follicular lymphoma type, unspecified body region Expected: 12/15/2023, Expires: 11/13/2024 documented as of this encounter Visit Diagnoses Diagnosis Follicular lymphoma, unspecified follicular lymphoma type, unspecified body region- Primary documented in this encounter Care Teams Brick Pitcher Relationship Specialty Start Date End Date Jacki Cabrera MD PCP - General Internal Medicine 01/06/19 documented as of this encounter
--- OUTSIDE RECORDS SUMMARY | 2024-05-11 12:19 | XMS_ITS | Encounter Summary ---
Author Organization [facility] [employer] and some sugar [facility] Address [address] [place] [address] Care Team Providers Care Electronics Computer Mechanic Name Role Phone Jacki Cabrera MD Primary Care Provider Encounter Details Date Type Department Care Team (Late Contact Info) Description 03/19/2024 Orders Only [facility] Oncology and Hematology [facility] Liza [address] [place] [address] Venkatesh Bolanos MD [facility] [employer] [address] [place] [phone] Social History Tobacco Use Types Packs/Day [...] (Late Contact Info) Description 05/13/2024 9:15 AM WINDOWS ARCHITECT Office Visit [facility] Oncology and Hematology - Yakov Gertrudis [address] [place] [address] Venkatesh Bolanos MD [facility] [employer] [address] [place] [phone] documented as of this encounter Procedures Procedure Name Priority Date/Time Associated Diagnosis Comments COMPREHENSIVE METABOLIC PANEL Routine 03/18/2024 10:01 AM WINDOWS ARCHITECT documented in this encounter Results * COMPREHENSIVE METABOLIC PANEL (03/18/2024 10:01 AM WINDOWS ARCHITECT) Blood Venkatesh Bolanos MD CHEMISTRY ORDERABLES documented in this encounter Visit Diagnoses Not on filedocumented in this encounter Care Teams Electronics Computer Mechanic Relationship Specialty Start Date End Date Jacki Cabrera MD PCP - General Internal Medicine 01/06/19 documented as of this encounter
--- OUTSIDE RECORDS SUMMARY | 2024-05-11 12:19 | XMS_ITS | Encounter Summary ---
Author Organization [facility] [employer] [facility] Address [address] [place] [address] Care Team Providers Care Epic Willow Specialist Name Role Phone Jacki Cabrera MD Primary Care Provider Encounter Details Date Type Department Care Team ([facility] Contact Info) Description 02/24/2024 Orders Only [facility] Oncology and [facility] [address] [place] [address] Venkatesh Bolanos MD [address] [place], [place] [address] [address] [place] [phone] Follicular lymphoma, unspecified follicular lymphoma type, [...] (Late Contact Info) Description 05/13/2024 9:15 AM PREPRESS MANAGER Office Visit [facility] Oncology and Hematology [facility] [address] [place] [address] Venkatesh Bolanos MD [facility] [employer] [address] [place] [phone] documented as of this encounter Visit Diagnoses Diagnosis Follicular lymphoma, unspecified follicular lymphoma type, unspecified body region documented in this encounter Care Teams Epic Willow Specialist Relationship Specialty Start Date End Date Jacki Cabrera MD PCP - General Internal Medicine 01/06/19 documented as of this encounter
--- OUTSIDE RECORDS SUMMARY | 2024-05-11 12:19 | XMS_ITS | Encounter Summary ---
Author Organization [facility] Address [address] [place] [address] Care Team Providers Care Fish Processing Supervisor Name Role Phone Jacki Cabrera MD Primary Care Provider Encounter Details Date Type Department Care Team (Late st Contact Info) Description 11/19/2023 External Device Data STL ABSTRACTION Provider, Abstract [...] st Contact Info) Description 05/13/2024 9:15 AM CERTIFIED DIABETES EDUCATOR Office Visit [facility] Oncology and Hematology - Yakov [address] [facility] [address] [place] [address] Venkatesh Bolanos MD [address] [facility] [address] [place] [address] documented as of this encounter Visit Diagnoses Not on filedocumented in this encounter Care Teams Fish Processing Supervisor Relationship Specialty Start Date End Date Jacki Cabrera MD PCP - General Internal Medicine 01/06/19 documented as of this encounter
--- OUTSIDE RECORDS SUMMARY | 2024-05-11 12:19 | XMS_ITS | Encounter Summary ---
Author Organization [facility] [employer] [facility] Address [address] [place] [address] Care Team Providers Care Postal Delivery Officer Name Role Phone Jacki Cabrera MD Primary Care Provider Encounter Details Date Type Department Care Team (Late Contact Info) Description 09/20/2023 Orders Only [facility] Oncology and Hematology [facility] [address] [place] [address] Venkatesh Bolanos MD [facility] [address] [place] [phone] Social History Tobacco Use Types Packs/Day [...] (Late Contact Info) Description 05/13/2024 9:15 AM DENTAL ASSISTANT INSTRUCTOR Office Visit [facility] Oncology and Hematology - Yakov [address] [place] [address] Venkatesh Bolanos MD [facility] [address] [place] [phone] documented as of this encounter Procedures Procedure Name Priority Date/Time Associated Diagnosis Comments COMPREHENSIVE METABOLIC PANEL Routine 09/19/2023 8:18 AM CDT COMPREHENSIVE METABOLIC PANEL Routine 09/19/2023 8:04 AM CDT documented in this encounter Results * COMPREHENSIVE METABOLIC PANEL (09/19/2023 8:18 AM CDT) Blood Venkatesh Bolanos MD CHEMISTRY ORDERABLES * COMPREHENSIVE METABOLIC PANEL (09/19/2023 8:04 AM CDT) Blood Venkatesh Bolanos MD CHEMISTRY ORDERABLES documented in this encounter Visit Diagnoses Not on filedocumented in this encounter Care Teams Postal Delivery Officer Relationship Specialty Start Date End Date Jacki Cabrera MD PCP - General Internal Medicine 01/06/19 documented as of this encounter
--- OUTSIDE RECORDS SUMMARY | 2024-05-11 12:19 | XMS_ITS | Encounter Summary ---
Author Organization [facility] Address [address] [place] [address] Care Team Providers Care Fish Egg Packer Name Role Phone Jacki Cabrera MD Primary Care Provider Encounter Details Date Type Department Care Team (Late st Contact Info) Description 01/07/2024 External Device Data STL ABSTRACTION Provider, Abstract [...] st Contact Info) Description 05/13/2024 9:15 AM MOBILE NURSE Office Visit [facility] Oncology and Hematology - Yakov [address] [facility] [address] [place] [address] Venkatesh Bolanos MD [address] [facility] [address] [place] [address] documented as of this encounter Visit Diagnoses Not on filedocumented in this encounter Care Teams Fish Egg Packer Relationship Specialty Start Date End Date Jacki Cabrera MD PCP - General Internal Medicine 01/06/19 documented as of this encounter
--- OUTSIDE RECORDS SUMMARY | 2024-05-11 12:19 | XMS_ITS | Encounter Summary ---
Author Organization [facility] [employer] [facility] Address [address] [place] [address] Care Team Providers Care Geomagnetist Name Role Phone Jacki Cabrera MD Primary Care Provider Encounter Details Date Type Department Care Team (Late Contact Info) Description 01/13/2024 Orders Only [facility] Oncology and [facility] Gertrudis [address] [place] [address] Venkatesh Bolanos MD [address] [place], [place] [address] [facility] [address] [place] [phone] Follicular lymphoma, unspecified follicular lymphoma type, [...] (Late Contact Info) Description 05/13/2024 9:15 AM CONVEYOR BELT INSTALLER Office Visit [facility] Oncology and Hematology [facility] Gertrudis [address] [place] [address] Venkatesh Bolanos MD [facility] [employer] [address] [place] [phone] documented as of this encounter Visit Diagnoses Diagnosis Follicular lymphoma, unspecified follicular lymphoma type, unspecified body region documented in this encounter Care Teams Geomagnetist Relationship Specialty Start Date End Date Jacki Cabrera MD PCP - General Internal Medicine 01/06/19 documented as of this encounter
--- OUTSIDE RECORDS SUMMARY | 2024-05-11 12:19 | XMS_ITS | Clinical Summary ---
Author Organization [facility] Address [address] [place] [address] Care Team Providers Care Dock Grader Name Role Phone Jacki Cabrera MD Primary Care Provider Allergies Active Allergy Reactions Criticality Noted Date Comments Metformin Nausea and Vomiting Low 06/05/2019 Penicillins Rash,Shortness of Breath/Wheezing High 0 12/12/2007 Medications Medication Sig Dispensed Refills Start Date End Date Status DULoxetine (CYMBALTA) 60 mg Capsule, Delayed Release(E.C.) Take 60 mg by mouth. 12/16/2018 A ctive gabapentin (NEURONTIN) 600 mg tablet 600 mg. 12/10/2016 Active omeprazole (PriLOSEC) 20 mg Capsule, Delayed Release(E.C.) 20 mg. 10/21/2016 Active folic acid (FOLVITE) 1 mg tablet Take 1 mg by mouth. Activ e predniSONE (DELTASONE) 5 mg tablet 5 mg. 01/18/2018 Active ergocalciferol (VITAMIN D2) 2,000 unit Tablet tablet Take 50,000 Units by mouth every 7 days. Active methotrexate (RHEUMATREX) 2.5 mg Tablet Take 2.5 mg by mouth every 7 days. Active lovastatin (MEVACOR) 20 mg tablet Take 20 mg by mouth. 10/10/2018 Acti ve HYDROcodone-acetam inophen (HYCET) 7.5-325 mg/15 mL Solution 15 mL. 11/07/2014 Active baclofen (LIORESAL) 10 mg tablet Take 10 mg by mouth. 11/13/2017 Acti ve albuterol sulfate HFA 90 mcg/actuation aerosol inhaler Take 2 Puffs by inhalation. Active calcitRIOL (ROCALTROL) 0.25 mcg capsule Take 0.25 mcg by mouth daily. 03/22/2021 Active escitalopram oxalate (LEXAPRO) 20 mg tablet Take 20 mg by mouth daily. 02/05/2022 Active fluticasone propionate (FLONASE) 50 mcg/spray [place], Suspension nasal inhaler Administer 1-2 Sprays in each nostril daily. Active lisinopril-hydroCH LOROthiazide (ZESTORETIC) 20-25 mg tablet Take 1 Tablet by mouth daily. 03/22/2021 Active nystatin (MYCOSTATIN) 100,000 unit/gram Cream Apply to affected area. Active semaglutide (Ozempic) 0.25 mg or 0.5 mg(2 mg/1.5 mL) Pen Injector Inject 0.5 mg by subcutaneous injection every 7 days. 04/06/2022 Active sulfaSALAzine (AZULFIDINE) 500 mg tablet Take 500 mg by mouth 2 times daily. 03/22/2021 Active zolpidem (AMBIEN) 10 mg tablet Take 10 mg by mouth daily at bedtime. 04/08/2022 Active QUEtiapine (SEROquel) 100 mg tablet Take 100 mg by mouth. 04/08/2022 Active ixekizumab (Taltz Autoinjector) 80 mg/mL Auto-Injector 80 mg every 30 days. 04/12/2022 A ctive dapagliflozin propanediol (Farxiga) 5 mg Tablet Take 1 Tablet by mouth daily. 02/14/2022 Active lidocaine-prilocai ne (EMLA) 2.5-2.5 % CreamIndications:F ollicular lymphoma, unspecified follicular lymphoma type, unspecified body region Apply to affected area see administration instructions. 30 Gram 1 06/18/2023 Active ondansetron (ZOFRAN ODT) 8 mg Tablet, Rapid DissolveIndication s:Follicular lymphoma, unspecified follicular lymphoma type, unspecified body region Dissolve 1 tablet on top of tongue then swallow with saliva every 8 hours as needed for nausea or vomiting 30 Tablet 1 02/27/2024 Active Active Problems Problem Noted Date Diagnosed Date Tobacco use 01/06/2019 Encounters Date Type Department Care Team Description 05/07/2024 Orders Only [facility] Oncology and Hematology - [place] [address] [place] [phone] Venkatesh Bolanos MD 05/04/2024 Orders Only [facility] Oncology and Hematology - [place] [address] [place] [phone] Venkatesh Bolanos MD Follicular lymphoma, unspecified follicular lymphoma type, unspecified body region 04/20/2024 Orders Only [facility] Oncology and Hematology - [place] [address] [place] [phone] Venkatesh Bolanos MD Follicular lymphoma, unspecified follicular lymphoma type, unspecified body region 04/06/2024 Orders Only [facility] Oncology and Hematology - [place] [address] [place] [phone] Venkatesh Bolanos MD Follicular lymphoma, unspecified follicular lymphoma type, unspecified body region 2024 Orders Only [facility] Oncology and Hematology - [place] [address] [place] [phone] Venkatesh Bolanos MD Follicular lymphoma, unspecified follicular lymphoma type, unspecified body region 03/19/2024 Orders Only [facility] Oncology and Hematology - [place] [address] [place] [address] Venkatesh Bolanos MD 03/19/2024 Telephone [facility] Oncology and Hematology - [place] [address] Venkatesh Bolanos MD Port Dye Study 03/18/2024 Orders Only [facility] Oncology and Hematology - [place] [address] [place] [phone] Venkatesh Bolanos MD 03/13/2024 Telephone [facility] Oncology and Hematology - [place] [address] [place] [phone] Delia Rios MD Medication Review (Wants to know if she can restart taltz) 03/10/2024 External Device Data STL ABSTRACTION Provider, Abstract 03/09/2024 Orders Only [facility] Oncology and Hematology - [place] [address] [place] [address] Venkatesh Bolanos MD Follicular lymphoma, unspecified follicular lymphoma type, unspecified body region 03/04/2024 9:45 AM CDT Office Visit [facility] Oncology and Hematology - [place] [address] [place] [address] Venkatesh Bolanos MD Follicular lymphoma, unspecified follicular lymphoma type, unspecified body region (Primary Dx) 03/04/2024 Orders Only [facility] Oncology and Hematology - [place] [address] [place] [address] Venkatesh Bolanos MD 02/27/2024 Refill [facility] Oncology and Hematology - [place] [address] [place] [address] Venkatesh Bolanos MD Follicular lymphoma, unspecified follicular lymphoma type, unspecified body region 02/24/2024 Orders Only [facility] Oncology and Hematology - [place] [address] [place] [address] Venkatesh Bolanos MD Follicular lymphoma, unspecified follicular lymphoma type, unspecified body region 02/10/2024 Orders Only [facility] Oncology and Hematology - [place] [address] [place] [address] Venkatesh Bolanos MD Follicular lymphoma, unspecified follicular lymphoma type, unspecified body region from Last 3 Months Family History Medical History Relation Name Comments Arthritis-osteo Brother Heart Disease Brother Arthritis-osteo Father Diabetes Father Heart Disease Father Hypertension Father Arthritis-osteo Mother Diabetes Mother Heart Disease Mother Hypertension Mother Arthritis-osteo Sister 1 Heart Disease Sister 1 No Known Problems Sister 2 No Known Problems Sister 3 No Known Problems Son 1 No Known Problems Son 2 Relation Name Status Comments Brother Father Mother Sister 1 Sister 2 Alive Sister 3 Alive Son 1 Alive Son 2 Alive Social History Tobacco Use Types [...] 12.8 oz) 03/04/2024 9:11 AM CDT Height 172.7 cm (5' 8 ) 04/02/2023 1:3 7 PM LAUNDRY MANAGER Body Mass Index 34.94 04/02/2023 1:37 PM LAUNDRY MANAGER Plan of Treatment Upcoming Encounters Date Type Department Care Team (Late st Contact Info) Description 05/13/2024 9:15 AM LAUNDRY MANAGER Office Visit [facility] Oncology and Hematology - [place] [address] [facility] [address] [place] [address] Venkatesh Bolanos MD [address] [facility] [address] [place] [address] Health Maintenance Due Date Last Done Comments DIABETES ANNUAL FOOT EXAM 1975 DIABETES ANNUAL RETINAL EXAM 1975 DIABETES MICROALBUMIN ANNUAL SCREEN 1975 LDL CHOLESTEROL ANNUAL 1975 BREAST CANCER SCREENING 1997 COLORECTAL SCREENING 2002 Colorectal Cancer Screening 2002 FIT-DNA Q 3 years 2002 FIT/FOBT Q 1 year 2002 Flex Sig/CT Colonography Q 5 years 2002 RSV VACCINE (60+ or ) (1 - Risk 60-74 years 1-dose series) 2017 DIABETES HBA1C Q 6 MONTHS 09/16/2021 03/19/2021 INFLUENZA VACCINE (#1) 2023 3, 02/07/2022, 02/07/2022, Additional history exists COVID-19 Vaccine (2023-2 5 season) 2024 04/06/2023, 02/07/2022, 04/03/2021, Additional history exists DTAP/TDAP/TD VACCINES (2 - T d or Tdap) 11/21/2033 11/22/2023 ZOSTER VACCINE Completed 04/30/2019, 02/22/2019 OSTEOPOROSIS SCREENING Completed 04/07/2021 PNEUMOCOCCAL VACCINE 65+ YEARS Completed 0 09/10/2022, 04/03/2021, 08/13/2006 Procedures Procedure Name Priority Date/Time Associated Diagnosis Comments XR PORT CONTRAST INJECT W FLUORO Routine 05/04/2024 3:[address] CHEST ABDOMEN PELVIS W CONT Routine 05/04/2024 11:21 AM LAUNDRY MANAGER BASIC METABOLIC PANEL Routine 03/18/2024 1:33 PM LAUNDRY MANAGER COMPREHENSIVE METABOLIC PANEL Routine 03/18/2024 10:01 AM LAUNDRY MANAGER BASIC METABOLIC PANEL Routine 03/04/2024 1:50 PM CDT CBC WITH DIFFERENTIAL Routine 03/04/2024 1:36 PM CDT from Last 3 Months Results * XR PORT CONTRAST INJECT W FLUORO (05/04/2024 3:49 PM LAUNDRY MANAGER) Anatomical Region Laterality Modality Other Venkatesh Bolanos MD DIAGNOSTIC IMAGING O RDERABLES * CT CHEST ABDOMEN PELVIS W CONT (05/04/2024 11:21 AM LAUNDRY MANAGER) Anatomical Region Laterality Modality Chest Other Venkatesh Bolanos MD CT ORDERABLES * BASIC METABOLIC PANEL (03/18/2024 1:33 PM LAUNDRY MANAGER) Only the most recent of2 resultswithin the time period is included. Blood Venkatesh Bolanos MD CHEMISTRY ORDERABLES * COMPREHENSIVE METABOLIC PANEL (03/18/2024 10:01 AM LAUNDRY MANAGER) Blood Venkatesh Bolanos MD CHEMISTRY ORDERABLES * CBC WITH DIFFERENTIAL (03/04/2024 1:36 PM CDT) Blood Venkatesh Bolanos MD HEMATOLOGY ORDERABLE S from Last 3 Months Care Teams Dock Grader Relationship Specialty Start Date End Date Jacki Cabrera MD PCP - General Internal Medicine 01/06/19
--- OUTSIDE RECORDS SUMMARY | 2024-05-11 12:19 | XMS_ITS | Encounter Summary ---
Author Organization [facility] [employer] [facility] Address [address] [place] [address] Care Team Providers Care Glass Mould Cleaner Name Role Phone Jacki Cabrera MD Primary Care Provider Encounter Details Date Type Department Care Team ([facility] Contact Info) Description 07/15/2023 Orders Only [facility] Oncology and Hematology [facility] [address] [place] [address] Venkatesh Bolanos MD [facility] [employer] [address] [place] [phone] Follicular lymphoma, unspecified follicular lymphoma type, [...] (Late Contact Info) Description 05/13/2024 9:15 AM GLOBAL POSITION SYSTEM TECHNICIAN Office Visit [facility] Oncology and Hematology [place] [address] [place] [address] Venkatesh Bolanos MD [facility] [employer] [address] [place] [phone] documented as of this encounter Visit Diagnoses Diagnosis Follicular lymphoma, unspecified follicular lymphoma type, unspecified body region documented in this encounter Care Teams Glass Mould Cleaner Relationship Specialty Start Date End Date Jacki Cabrera MD PCP - General Internal Medicine 01/06/19 documented as of this encounter
--- OUTSIDE RECORDS SUMMARY | 2024-05-11 12:19 | XMS_ITS | Encounter Summary ---
Author Organization [facility] [employer] [facility] Address [address] [place] [address] Care Team Providers Care Fur Mixer Operator Name Role Phone Jacki Cabrera MD Primary Care Provider Reason for Visit * Reason Onset Date Comments Medication Refill 01/01/2024 Encounter Details Date Type Department Care Team ([facility] Contact Info) Description 01/01/2024 Refill [facility] Oncology [facility] [address] [place] [address] Venkatesh Bolanos MD [facility] [employer] [address] [place] [phone] Follicular lymphoma, unspecified follicular lymphoma type, [...] Upcoming Encounters Date Type Department Care Team ([facility] Contact Info) Description 05/13/2024 9:15 AM BUSINESS TEST ANALYST Office Visit [facility] Oncology and Hematology [facility] [address] [place] [address] Venkatesh Bolanos MD [address] [employer] [address] [place] [phone] documented as of this encounter Visit Diagnoses Diagnosis Follicular lymphoma, unspecified follicular lymphoma type, unspecified body region documented in this encounter Care Teams Fur Mixer Operator Relationship Specialty Start Date End Date Jacki Cabrera MD PCP - General Internal Medicine 01/06/19 documented as of this encounter
--- OUTSIDE RECORDS SUMMARY | 2024-05-11 12:19 | XMS_ITS | Encounter Summary ---
Author Organization [facility] [employer] [facility] Address [address] [place] [address] Care Team Providers Care Director Of Compensation Name Role Phone Jacki Cabrera MD Primary Care Provider Encounter Details Date Type Department Care Team (Late Contact Info) Description 12/30/2023 Orders Only [facility] Oncology and [facility] [address] [place] [address] Venkatesh Bolanos MD [address] [place], [place] [address] [address] [place] [phone] Follicular lymphoma, unspecified follicular lymphoma type, [...] (Late Contact Info) Description 05/13/2024 9:15 AM SHEARER OPERATOR Office Visit [facility] Oncology and Hematology [facility] [address] [place] [address] Venkatesh Bolanos MD [facility] [employer] [address] [place] [phone] documented as of this encounter Visit Diagnoses Diagnosis Follicular lymphoma, unspecified follicular lymphoma type, unspecified body region documented in this encounter Care Teams Director Of Compensation Relationship Specialty Start Date End Date Jacki Cabrera MD PCP - General Internal Medicine 01/06/19 documented as of this encounter
--- OUTSIDE RECORDS SUMMARY | 2024-05-11 12:19 | XMS_ITS | Encounter Summary ---
Author Organization [facility] [employer] [facility] Address [address] [place] [address] Care Team Providers Care Generating Station Mechanic Name Role Phone Jacki Cabrera MD Primary Care Provider Reason for Referral * Radiology Services (Routine) - Closed Specialty Diagnoses / Procedures Referred By Calvin bentley Referred To Contact Diagnoses Follicular lymphoma, unspecified follicular lymphoma type, unspecified body region Procedures XR PORT CONTRAST INJECT W FLUORO Venkatesh Bolanos MD [address] [employer] [address] [place] [phone] [place] [address] Referral ID Status Reason Start Date Expiration Date V isits Requested Visits Authorized [id number] Closed [facility] CTS 03/19/2024 04/19/2025 1 1 ODONTIC TREATMENT COORDINATOR Reason for Visit * Reason Onset Date Comments Port Dye Study 03/19/2024 Encounter Details Date Type Department Care Team (Late st Contact Info) Description 03/19/2024 Telephone [facility] Oncology and Hematology [facility] [address] [facility] [address] [place] [address] Venkatesh Bolanos MD [address] [address] [place] [address] Port Dye Study Social History Tobacco Use Types Packs/Day Years [...] encounter Miscellaneous Notes * Telephone Encounter - Adriane Paniagua Baron - 03/19/2024 9:04 AM CST Ordering a dye study for patient. After 2 doses of cathflo, patient still does not have blood return. ODONTIC TREATMENT COORDINATOR documented in this encounter Plan of Treatment Upcoming Encounters Date Type Department Care Team (Late st Contact Info) Description 05/13/2024 9:15 AM ORTHODONTIC TREATMENT COORDINATOR Office Visit [facility] Oncology and Hematology - [place] [address] [facility] [address] [place] [address] Venkatesh Bolanos MD [address] [facility] [address] [place] [address] Scheduled Orders Name Type Priority Associated Diagnoses Orde r Schedule XR PORT CONTRAST INJECT W FLUORO Imaging Routine Follicular lymphoma, unspecified follicular lymphoma type, unspecified body region Expected: 03/19/2024, Expires: 03/19/2025 documented as of this encounter Visit Diagnoses Diagnosis Follicular lymphoma, unspecified follicular lymphoma type, unspecified body region- Primary documented in this encounter Care Teams Generating Station Mechanic Relationship Specialty Start Date End Date Jacki Cabrera MD PCP - General Internal Medicine 01/06/19 documented as of this encounter
--- OUTSIDE RECORDS SUMMARY | 2024-05-11 12:19 | XMS_ITS | Encounter Summary ---
Author Organization [facility] [employer] [facility] Address [address] [place] [address] Care Team Providers Care Consumer Marketing Analyst Name Role Phone Jacki Cabrera MD Primary Care Provider Encounter Details Date Type Department Care Team (Late Contact Info) Description 11/18/2023 Orders Only [facility] Oncology and [facility] [address] [place] [address] Venkatesh Bolanos MD [address] [place], [place] [address] [address] [place] [phone] Follicular lymphoma, unspecified follicular lymphoma type, [...] (Late Contact Info) Description 05/13/2024 9:15 AM ORDER MANAGER Office Visit [facility] Oncology and Hematology [facility] [address] [place] [address] Venkatesh Bolanos MD [facility] [employer] [address] [place] [phone] documented as of this encounter Visit Diagnoses Diagnosis Follicular lymphoma, unspecified follicular lymphoma type, unspecified body region documented in this encounter Care Teams Consumer Marketing Analyst Relationship Specialty Start Date End Date Jacki Cabrera MD PCP - General Internal Medicine 01/06/19 documented as of this encounter
--- OUTSIDE RECORDS SUMMARY | 2024-05-11 12:19 | XMS_ITS | Encounter Summary ---
Author Organization [facility] [employer] [facility] Address [address] [place] [address] Care Team Providers Care Physical Science Aide Name Role Phone Jacki Cabrera MD Primary Care Provider Encounter Details Date Type Department Care Team (Late Contact Info) Description 03/18/2024 Orders Only [facility] Oncology and Hematology [facility] [address] [place] [address] Venkatesh Bolanos MD [facility] [employer] [address] [place] [phone] Social History Tobacco Use Types Packs/Day [...] (Late Contact Info) Description 05/13/2024 9:15 AM ENTERPRISE ARCHITECT MANAGER Office Visit [facility] Oncology and Hematology - [place] [address] [place] [address] Venkatesh Bolanos MD [facility] [place] [address] [place] [phone] documented as of this encounter Procedures Procedure Name Priority Date/Time Associated Diagnosis Comments BASIC METABOLIC PANEL Routine 03/18/2024 1:33 PM ENTERPRISE ARCHITECT MANAGER documented in this encounter Results * BASIC METABOLIC PANEL (03/18/2024 1:33 PM ENTERPRISE ARCHITECT MANAGER) Blood Venkatesh Bolanos MD CHEMISTRY ORDERABLES documented in this encounter Visit Diagnoses Not on filedocumented in this encounter Care Teams Physical Science Aide Relationship Specialty Start Date End Date Jacki Cabrera MD PCP - General Internal Medicine 01/06/19 documented as of this encounter
--- OUTSIDE RECORDS SUMMARY | 2024-05-11 12:19 | XMS_ITS | Encounter Summary ---
Author Organization [facility] [employer] [facility] Address [address] [place] [address] Care Team Providers Care Funnel Coater Name Role Phone Jacki Cabrera MD Primary Care Provider Encounter Details Date Type Department Care Team ([facility] Contact Info) Description 08/26/[address] [facility] Oncology and Hematology [facility] [address] [place] [address] Venkatesh Bolanos MD [facility] [employer] [address] [place] [phone] Follicular lymphoma, unspecified follicular lymphoma type, [...] Upcoming Encounters Date Type Department Care Team ([facility] Contact Info) Description 05/13/2024 9:15 AM FLASH DESIGNER Office Visit [facility] Oncology and Hematology [place] [address] [place] [address] Venkatesh Bolanos MD [facility] [employer] [address] [place] [phone] documented as of this encounter Visit Diagnoses Diagnosis Follicular lymphoma, unspecified follicular lymphoma type, unspecified body region documented in this encounter Care Teams Funnel Coater Relationship Specialty Start Date End Date Jacki Cabrera MD PCP - General Internal Medicine 01/06/19 documented as of this encounter
--- OUTSIDE RECORDS SUMMARY | 2024-05-11 12:19 | XMS_ITS | Encounter Summary ---
Author Organization [facility] [employer] [facility] Address [address] [place] [address] Care Team Providers Care Photographic Lithographer Name Role Phone Jacki Cabrera MD Primary Care Provider Encounter Details Date Type Department Care Team (Late Contact Info) Description 12/16/2023 Orders Only [facility] Oncology and [facility] [address] [place] [address] Venkatesh Bolanos MD [address] [place], [place] [address] [address] [place] [phone] Follicular lymphoma, unspecified follicular lymphoma type, [...] (Late Contact Info) Description 05/13/2024 9:15 AM NETWORK SECURITY ENGINEER Office Visit [facility] Oncology and Hematology [facility] [address] [place] [address] Venkatesh Bolanos MD [facility] [employer] [address] [place] [phone] documented as of this encounter Visit Diagnoses Diagnosis Follicular lymphoma, unspecified follicular lymphoma type, unspecified body region documented in this encounter Care Teams Photographic Lithographer Relationship Specialty Start Date End Date Jacki Cabrera MD PCP - General Internal Medicine 01/06/19 documented as of this encounter
--- OUTSIDE RECORDS SUMMARY | 2024-05-11 12:19 | XMS_ITS | Encounter Summary ---
Author Organization [facility] [employer] [facility] Address [address] [place] [address] Care Team Providers Care Receiving Coordinator Name Role Phone Jacki Cabrera MD Primary Care Provider Encounter Details Date Type Department Care Team ([facility] Contact Info) Description 03/04/2024 Orders Only [facility] Oncology and Hematology [facility] [address] [place] [address] Venkatesh Bolanos MD [facility] [employer] [address] [place] [phone] Social History Tobacco Use Types Packs/Day [...] (Late Contact Info) Description 05/13/2024 9:15 AM STITCH SEPARATOR Office Visit [facility] Oncology and Hematology [place] [address] [place] [address] Venkatesh Bolanos MD [facility] [employer] [address] [place] [phone] documented as of this encounter Procedures Procedure Name Priority Date/Time Associated Diagnosis Comments BASIC METABOLIC PANEL Routine 03/04/2024 1:50 PM CDT CBC WITH DIFFERENTIAL Routine 03/04/2024 1:36 PM CDT documented in this encounter Results * BASIC METABOLIC PANEL (03/04/2024 1:50 PM CDT) Blood Venkatesh Bolanos MD CHEMISTRY ORDERABLES * CBC WITH DIFFERENTIAL (03/04/2024 1:36 PM CDT) Blood Venkatesh Bolanos MD HEMATOLOGY ORDERABLE S documented in this encounter Visit Diagnoses Not on filedocumented in this encounter Care Teams Receiving Coordinator Relationship Specialty Start Date End Date Jacki Cabrera MD PCP - General Internal Medicine 01/06/19 documented as of this encounter
--- OUTSIDE RECORDS SUMMARY | 2024-05-11 12:19 | XMS_ITS | Encounter Summary ---
Author Organization [facility] [employer] [facility] Address [address] [place] [address] Care Team Providers Care Fish Liver Sorter Name Role Phone Jacki Cabrera MD Primary Care Provider Encounter Details Date Type Department Care Team ([facility] Contact Info) Description 05/04/2024 Orders Only [facility] Oncology [facility] [address] [place] [address] Venkatesh Bolanos MD [address] [place] [address] [employer] [address] [place] [phone] Follicular lymphoma, unspecified follicular lymphoma type, [...] (Late Contact Info) Description 05/13/2024 9:15 AM STATIONARY ENGINEER Office Visit [facility] Oncology and Hematology [facility] [address] [place] [address] Venkatesh Bolanos MD [address] [place] [address] [employer] [address] [place] [phone] documented as of this encounter Procedures Procedure Name Priority Date/Time Associated Diagnosis Comments XR PORT CONTRAST INJECT W FLUORO Routine 05/04/2024 3:49 PM STATIONARY ENGINEER documented in this encounter Results * XR PORT CONTRAST INJECT W FLUORO (05/04/2024 3:49 PM STATIONARY ENGINEER) Anatomical Region Laterality Modality Other Venkatesh Bolanos MD DIAGNOSTIC IMAGING O RDERABLES documented in this encounter Visit Diagnoses Diagnosis Follicular lymphoma, unspecified follicular lymphoma type, unspecified body region documented in this encounter Care Teams Fish Liver Sorter Relationship Specialty Start Date End Date Jacki Cabrera MD PCP - General Internal Medicine 01/06/19 documented as of this encounter
--- OUTSIDE RECORDS SUMMARY | 2024-05-11 12:19 | XMS_ITS | Encounter Summary ---
Author Organization [facility] [employer] [facility] Address [address] [place] [address] Care Team Providers Care Cloth Tester Quality Name Role Phone Jacki Cabrera MD Primary Care Provider Encounter Details Date Type Department Care Team ([facility] Contact Info) Description 08/12/2023 Orders Only [facility] Oncology and Hematology [facility] [address] [place] [address] Venkatesh Bolanos MD [facility] [employer] [address] [place] [phone] Follicular lymphoma, unspecified follicular lymphoma type, [...] (Late Contact Info) Description 05/13/2024 9:15 AM FLOW NURSE Office Visit [facility] Oncology and Hematology [place] [address] [place] [address] Venkatesh Bolanos MD [facility] [employer] [address] [place] [phone] documented as of this encounter Visit Diagnoses Diagnosis Follicular lymphoma, unspecified follicular lymphoma type, unspecified body region documented in this encounter Care Teams Cloth Tester Quality Relationship Specialty Start Date End Date Jacki Cabrera MD PCP - General Internal Medicine 01/06/19 documented as of this encounter
--- OUTSIDE RECORDS SUMMARY | 2024-05-11 12:19 | XMS_ITS | Encounter Summary ---
Author Organization [facility] [employer] [facility] Address [address] [place] [address] Care Team Providers Care Claims Auditor Name Role Phone Jacki Cabrera MD Primary Care Provider Encounter Details Date Type Department Care Team (Late Contact Info) Description 12/02/2023 Orders Only [facility] Oncology and [facility] [address] [place] [address] Venkatesh Bolanos MD [address] [place], [place] [address] [address] [place] [phone] Follicular lymphoma, unspecified follicular lymphoma type, [...] (Late Contact Info) Description 05/13/2024 9:15 AM DIESEL LOCOMOTIVE ENGINEER Office Visit [facility] Oncology and Hematology [facility] [address] [place] [address] [facility] [employer] [address] [place] [phone] documented as of this encounter Visit Diagnoses Diagnosis Follicular lymphoma, unspecified follicular lymphoma type, unspecified body region documented in this encounter Care Teams Claims Auditor Relationship Specialty Start Date End Date Jacki Cabrera MD PCP - General Internal Medicine 01/06/19 documented as of this encounter
--- OUTSIDE RECORDS SUMMARY | 2024-05-11 12:19 | XMS_ITS | Encounter Summary ---
Author Organization [facility] [employer] [facility] Address [address] [place] [address] Care Team Providers Care Milk Pickup Truck Driver Name Role Phone Jacki Cabrera MD Primary Care Provider Encounter Details Date Type Department Care Team ([facility] Contact Info) Description 2024 Orders Only [facility] Oncology and [facility] [address] [place] [address] Venkatesh Bolanos MD [address] [place], [place] [email or web address] [address] [place] [phone] Follicular lymphoma, unspecified follicular lymphoma type, [...] (Late Contact Info) Description 05/13/2024 9:15 AM AUTO LEASING MANAGER Office Visit [facility] Oncology and Hematology [facility] [address] [place] [address] Venkatesh Bolanos MD [facility] [employer] [address] [place] [phone] documented as of this encounter Visit Diagnoses Diagnosis Follicular lymphoma, unspecified follicular lymphoma type, unspecified body region documented in this encounter Care Teams Milk Pickup Truck Driver Relationship Specialty Start Date End Date Jacki Cabrera MD PCP - General Internal Medicine 01/06/19 documented as of this encounter
--- OUTSIDE RECORDS SUMMARY | 2024-05-11 12:19 | XMS_ITS | Encounter Summary ---
Author Organization [facility] [employer] [facility] Address [address] [place] [address] Care Team Providers Care Terminal Carman Name Role Phone Jacki Cabrera MD Primary Care Provider Reason for Visit * Reason Comments Chemotherapy Encounter Details Date Type Department Care Team ([facility] st Contact Info) Description 08/22/2023 8:45 AM CDT Office Visit [facility] Oncology and Hematology - [place] [address] [facility] [address] [place] [address] Venkatesh Bolanos MD [address] [facility] [address] [place] [address] Follicular lymphoma, unspecified follicular lymphoma [...] Sign Reading Time Taken Comments Blood Pressure 115/80 08/22/2023 8:42 AM CDT Pulse 88 08/22/2023 8:42 AM CDT Temperature 36 ??C (96.8 ??F) 08/22/2023 8:42 AM CDT Respiratory Rate 14 08/22/2023 8:42 AM CDT Oxygen Saturation 94% 08/22/2023 8:42 AM CDT Inhaled Oxygen Concentration - - Weight 105.2 kg (232 lb) 08/22/2023 8:42 AM CDT Height - - Body Mass Index 35.28 04/02/2023 1:37 PM GRANT OFFICER documented in this encounter Progress Notes * Venkatesh Bolanos MD - 08/22/2023 9:02 AM CDT HEMATOLOGY / ONCOLOGY PROGRESS NOTE [...] the office for follow-up visit and cycle #3 of chemotherapy today. He has been tolerating chemotherapy well other than some nausea. Denies any night sweats fevers and chills. No new lumps bumps endocrinopathy. No other new complaints. Review of system Constitutional: Patient did not mention fevers, sweats, denies any tiredness and fatigue, weight and appetite stable [...] hemoglobin 14.2 platelet 1 45,000 creatinine 0.6 Assessment: Plan: Patient Active Problem List Diagnosis [...] chemotherapy with Bendamustine Rituxan on 09/18/2023. Labs noted and stable. She has been tolerating chemotherapy well. Will proceed with cycle #3 of chemotherapy today. Chemotherapy-induced nausea. She will receive refill on Zofran today. Peripheral neuropathy. Stable on gabapentin. Psoriatic arthritis. Patient is on methotrexate and prednisone. Hypercalcemia with elevated serum protein. Serum protein electrophoresis showed no M spike. Will continue to observe. Type 2 diabetes. Stable on Ozempic. TOBACCO COUNSELING She is not a tobacco/nicotine user. 08/22/2023 Venkatesh Bolanos MD documented in this encounter Plan of Treatment Upcoming Encounters Date Type Department Care Team (Late st Contact Info) Description 05/13/2024 9:15 AM GRANT OFFICER Office Visit [facility] Oncology and Hematology - [place] [address] [place] [address] Venkatesh Bolanos MD [address] [facility] [address] [place] [phone] Scheduled Orders Name Type Priority Associated Diagnoses Orde r Schedule BASIC METABOLIC PANEL Lab Stat Follicular lymphoma, unspecified follicular lymphoma type, unspecified body region Expected: 09/19/2023, Expires: 08/21/2024 CBC WITH DIFFERENTIAL Lab Stat Follicular lymphoma, unspecified follicular lymphoma type, unspecified body region Expected: 09/19/2023, Expires: 08/21/2024 documented as of this encounter Visit Diagnoses Diagnosis Follicular lymphoma, unspecified follicular lymphoma type, unspecified body region- Primary documented in this encounter Care Teams Terminal Carman Relationship Specialty Start Date End Date Jacki Cabrera MD PCP - General Internal Medicine 01/06/19 documented as of this encounter
--- OUTSIDE RECORDS SUMMARY | 2024-05-11 12:19 | XMS_ITS | Encounter Summary ---
Author Organization [facility] [employer] [facility] Address [address] [place] [address] Care Team Providers Care Bottom Stainer Name Role Phone Jacki Cabrera MD Primary Care Provider Encounter Details Date Type Department Care Team (Late Contact Info) Description 04/06/2024 Orders Only [facility] Oncology and [facility] [address] [place] [address] Venkatesh Bolanos MD [address] [place], [place] [address] [address] [place] [phone] Follicular lymphoma, unspecified follicular lymphoma type, [...] (Late Contact Info) Description 05/13/2024 9:15 AM ELEMENTARY SCIENCE TEACHER Office Visit [facility] Oncology and Hematology [facility] [address] [place] [address] Venkatesh Bolanos MD [facility] [employer] [address] [place] [phone] documented as of this encounter Visit Diagnoses Diagnosis Follicular lymphoma, unspecified follicular lymphoma type, unspecified body region documented in this encounter Care Teams Bottom Stainer Relationship Specialty Start Date End Date Jacki Cabrera MD PCP - General Internal Medicine 01/06/19 documented as of this encounter
--- OUTSIDE RECORDS SUMMARY | 2024-05-11 12:19 | XMS_ITS | Encounter Summary ---
Author Organization [facility] [employer] [facility] Address [address] [place] [address] Care Team Providers Care Logistic Manager Name Role Phone Jacki Cabrera MD Primary Care Provider Encounter Details Date Type Department Care Team (Late Contact Info) Description 11/04/2023 Orders Only [facility] Oncology and [facility] [address] [place] [address] Venkatesh Bolanos MD [address] [place], [place] [address] [address] [place] [phone] Follicular lymphoma, unspecified follicular lymphoma type, [...] (Late Contact Info) Description 05/13/2024 9:15 AM VALET MANAGER Office Visit [facility] Oncology and Hematology [facility] [address] [place] [address] Venkatesh Bolanos MD [facility] [employer] [address] [place] [phone] documented as of this encounter Visit Diagnoses Diagnosis Follicular lymphoma, unspecified follicular lymphoma type, unspecified body region documented in this encounter Care Teams Logistic Manager Relationship Specialty Start Date End Date Jacki Cabrera MD PCP - General Internal Medicine 01/06/19 documented as of this encounter
--- OUTSIDE RECORDS SUMMARY | 2024-05-11 12:19 | XMS_ITS | Encounter Summary ---
Author Organization [facility] [employer] [facility] Address [address] [place] [address] Care Team Providers Care Hide Paster Name Role Phone Jacki Cabrera MD Primary Care Provider Encounter Details Date Type Department Care Team ([facility] Contact Info) Description 02/10/2024 Orders Only [facility] Oncology and [facility] [address] [place] [address] Venkatesh Bolanos MD [address] [place], [place] [address] [address] [place] [phone] Follicular lymphoma, unspecified follicular lymphoma type, [...] (Late Contact Info) Description 05/13/2024 9:15 AM CARD MOUNTER Office Visit [facility] Oncology and Hematology [facility] [address] [place] [address] Venkatesh Bolanos MD [facility] [employer] [address] [place] [phone] documented as of this encounter Visit Diagnoses Diagnosis Follicular lymphoma, unspecified follicular lymphoma type, unspecified body region documented in this encounter Care Teams Hide Paster Relationship Specialty Start Date End Date Jacki Cabrera MD PCP - General Internal Medicine 01/06/19 documented as of this encounter
--- OUTSIDE RECORDS SUMMARY | 2024-05-11 12:19 | XMS_ITS | Encounter Summary ---
Author Organization [facility] [employer] [facility] Address [address] [place] [address] Care Team Providers Care Christmas Tree Farm Worker Name Role Phone Jacki Cabrera MD Primary Care Provider Encounter Details Date Type Department Care Team (Late Contact Info) Description 04/20/2024 Orders Only [facility] Oncology and [facility] [address] [place] [address] Venkatesh Bolanos MD [address] [place], [place] [address] [address] [place] [phone] Follicular lymphoma, unspecified follicular lymphoma type, [...] (Late Contact Info) Description 05/13/2024 9:15 AM MEDICAL RECORDS ANALYST Office Visit [facility] Oncology and Hematology [facility] [address] [place] [address] Venkatesh Bolanos MD [facility] [employer] [address] [place] [phone] documented as of this encounter Visit Diagnoses Diagnosis Follicular lymphoma, unspecified follicular lymphoma type, unspecified body region documented in this encounter Care Teams Christmas Tree Farm Worker Relationship Specialty Start Date End Date Jacki Cabrera MD PCP - General Internal Medicine 01/06/19 documented as of this encounter
--- OUTSIDE RECORDS SUMMARY | 2024-05-11 12:19 | XMS_ITS | Encounter Summary ---
Author Organization [facility] [employer] [facility] Address [address] [place] [address] Care Team Providers Care Tennis Professional Name Role Phone Jacki Cabrera MD Primary Care Provider Reason for Visit * Reason Onset Date Comments Medication Review 03/13/2024 Wants to know if she can restart taltz Encounter Details Date Type Department Care Team (Late st Contact Info) Description 03/13/[address] [facility] Oncology and Hematology - [place] [address] [place] [address] Delia Rios MD [address] [place] [address] Medication Review (Wants to know if she can restart taltz) Social History Tobacco Use Types Packs/Day Years [...] encounter Miscellaneous Notes * Telephone Encounter - Mayte Petersontany - 03/13/2024 9:01 AM CST ----- Message from Dr. Delia Rios sent at 03/13/2024 8:43 AM [employer] ----- Regarding: RE: Psoriatic arthritis medication Good Morning, Patient can get the injection Taltz. Dr Pant-Shawn ----- Message ----- From: Suni Peterson Sent: 03/12/2024 2:39 PM [employer] To: Delia Rios MD Subject: FW: Psoriatic arthritis medication Hey just trying to get a confirmation on her being able to start her taltz again ----- Message ----- From: Suni Peterson Sent: 03/10/2024 11:28 AM [employer] To: Delia Rios MD Subject: Psoriatic arthritis medication Patient called stating that her first 6 months of chemo she was on the medication Taltz for Psoriatic arthritis. Her crewman main battle tank Dr. Garcia told her to stop medication until after chemo. With out the taltz patient has been breaking out in psoriasis everywhere on he body, Arms, belly, under breasts, and private parts to name a few. Patient's Doctor agreed she could get back on the medication if we are agreeable, with her taking it while on treatment. Please advise. [employer] documented in this encounter Plan of Treatment Upcoming Encounters Date Type Department Care Team (Late st Contact Info) Description 05/13/2024 9:15 AM SVP [employer] Office Visit [facility] Oncology and Hematology - [place] [address] [place] [address] [phone] Venkatesh Bolanos MD [address] [facility] [address] [place] [address] documented as of this encounter Visit Diagnoses Not on filedocumented in this encounter Care Teams Tennis Professional Relationship Specialty Start Date End Date Jacki Cabrera MD PCP - General Internal Medicine 01/06/19 documented as of this encounter
--- OUTSIDE RECORDS SUMMARY | 2024-05-11 12:19 | XMS_ITS | Encounter Summary ---
Author Organization [facility] [employer] [facility] Address [address] [place] [address] Care Team Providers Care Orthoptist Name Role Phone Jacki Cabrera MD Primary Care Provider Encounter Details Date Type Department Care Team (Late Contact Info) Description 12/12/2023 Orders Only [facility] Oncology and Hematology [facility] [address] [place] [address] Venkatesh Bolanos MD [address] [place], [place] [address] [address] [place] [phone] Social History Tobacco Use Types Packs/Day [...] (Late Contact Info) Description 05/13/2024 9:15 AM FINGERNAIL TECHNICIAN Office Visit [facility] Oncology and Hematology [place] [address] [place] [address] Venkatesh Bolanos MD [address] [place], [place] [address] [address] [place] [phone] documented as of this encounter Procedures Procedure Name Priority Date/Time Associated Diagnosis Comments CT CHEST ABDOMEN PELVIS W CONT Routine 12/12/2023 3:54 PM CDT documented in this encounter Results * CT CHEST ABDOMEN PELVIS W CONT (12/12/2023 3:54 PM CDT) Anatomical Region Laterality Modality Chest Other Venkatesh Bolanos MD CT ORDERABLES documented in this encounter Visit Diagnoses Not on filedocumented in this encounter Care Teams Orthoptist Relationship Specialty Start Date End Date Jacki Cabrera MD PCP - General Internal Medicine 01/06/19 documented as of this encounter
--- OUTSIDE RECORDS SUMMARY | 2024-05-11 12:19 | XMS_ITS | Encounter Summary ---
Author Organization [facility] [employer] [facility] Address [address] [place] [address] Care Team Providers Care Title I Assistant Name Role Phone Jacki Cabrera MD Primary Care Provider Encounter Details Date Type Department Care Team (Late Contact Info) Description 10/07/2023 Orders Only [facility] Oncology and [facility] [address] [place] [address] Venkatesh Bolanos MD [address] [place], [place] [address] [address] [place] [phone] Follicular lymphoma, unspecified follicular lymphoma type, [...] (Late Contact Info) Description 05/13/2024 9:15 AM PLATFORM MILL SUPERVISOR Office Visit [facility] Oncology and Hematology [facility] [address] [place] [address] Venkatesh Bolanos MD [facility] [employer] [address] [place] [phone] documented as of this encounter Visit Diagnoses Diagnosis Follicular lymphoma, unspecified follicular lymphoma type, unspecified body region documented in this encounter Care Teams Title I Assistant Relationship Specialty Start Date End Date Jacki Cabrera MD PCP - General Internal Medicine 01/06/19 documented as of this encounter
--- OUTSIDE RECORDS SUMMARY | 2024-05-11 12:19 | XMS_ITS | Encounter Summary ---
Author Organization [facility] ([facility] [email or web address] [facility] Address [address] [place] [address] Care Team Providers Care International Student Counselor Name Role Phone Jacki Cabrera MD Primary Care Provider Encounter Details Date Type Department Care Team (Late Contact Info) Description 01/27/2024 Orders Only [facility] Oncology and [facility] [address] [place] [address] Venkatesh Bolanos MD [address] [place], [place] [address] [address] [place] [phone] Follicular lymphoma, unspecified follicular lymphoma type, [...] (Late Contact Info) Description 05/13/2024 9:15 AM HEEL BUILDER Office Visit [facility] Oncology and Hematology [facility] [address] [place] [address] Venkatesh Bolanos MD [facility] [address] [place] [phone] documented as of this encounter Visit Diagnoses Diagnosis Follicular lymphoma, unspecified follicular lymphoma type, unspecified body region documented in this encounter Care Teams International Student Counselor Relationship Specialty Start Date End Date Jacki Cabrera MD PCP - General Internal Medicine 01/06/19 documented as of this encounter
--- OUTSIDE RECORDS SUMMARY | 2024-05-11 12:19 | XMS_ITS | Encounter Summary ---
Author Organization [facility] Address [address] [place] [address] Care Team Providers Care Teacher Preschool Name Role Phone Jacki Cabrera MD Primary Care Provider Encounter Details Date Type Department Care Team (Late st Contact Info) Description 01/28/2024 External Device Data STL ABSTRACTION Provider, Abstract [...] st Contact Info) Description 05/13/2024 9:15 AM BUGGY DRIVER Office Visit [facility] Oncology and Hematology - [place] [address] [facility] [address] [place] [address] Venkatesh Bolanos MD [address] [facility] [address] [place] [address] documented as of this encounter Visit Diagnoses Not on filedocumented in this encounter Care Teams Teacher Preschool Relationship Specialty Start Date End Date Jacki Cabrera MD PCP - General Internal Medicine 01/06/19 documented as of this encounter
--- OUTSIDE RECORDS SUMMARY | 2024-05-11 12:19 | XMS_ITS | Encounter Summary ---
Author Organization [facility] [employer] [facility] Address [address] [place] [address] Care Team Providers Care Canvas Goods Supervisor Name Role Phone Jacki Cabrera MD Primary Care Provider Reason for Visit * Reason Onset Date Comments Cough 08/13/2023 Encounter Details Date Type Department Care Team (Late st Contact Info) Description 08/13/2023 Telephone [facility] Oncology and Hematology - [place] [address] [facility] 200 [place] [address] Venkatesh Bolanos MD [address] [facility] [address] [place] [address] Cough Social History Tobacco Use Types Packs/Day Years [...] encounter Miscellaneous Notes * Telephone Encounter - Suni Peterson - 08/13/2023 9:03 AM CDT Spoke with patient to let her know to call back tomorrow if still not feeling well to reschedule Chemotherapy per Dr. Bolanos. Also recommended she can try [id number] antihistamine for runny nose and cough and congestion as per Dr. Bolanos recommendations. Patient said she has been well medicated and has been already taking them. Patient understood instructions and recommendations. * Telephone Encounter - Suni Peterson - 08/13/2023 8:59 AM CDT ----- Message from Venkatesh Bolanos MD sent at 08/12/2023 4:32 PM CDT ----- Regarding: RE: Sick Symptoms If she is not better by Saturday she can call the office and reschedule appointment for next week for chemotherapy. She can try [id number] antihistamine for runny nose and cough and congestion. ----- Message ----- From: Suni Peterson Sent: 08/12/2023 8:37 AM CDT To: Venkatesh Bolanos MD Subject: Sick Symptoms Patient called stating that for the last week she has had cough, congestion and a runny nose. She states mucus is clear but not getting any better.Patient has reported no fever or chills. Patient is due for treatment and Saturday. Please advise documented in this encounter Plan of Treatment Upcoming Encounters Date Type Department Care Team (Late st Contact Info) Description 05/13/2024 9:15 AM PAPER REWINDER Office Visit [facility] Oncology and Hematology - [place] [address] [place] [address] [address] [place] [phone] Venkatesh Bolanos MD [address] [facility] [address] [place] [address] documented as of this encounter Visit Diagnoses Not on filedocumented in this encounter Care Teams Canvas Goods Supervisor Relationship Specialty Start Date End Date Jacki Cabrera MD PCP - General Internal Medicine 01/06/19 documented as of this encounter
--- OUTSIDE RECORDS SUMMARY | 2024-05-11 12:19 | XMS_ITS | Encounter Summary ---
Author Organization [facility] Address [address] [place] [address] Care Team Providers Care Food And Beverage Server Name Role Phone Jacki Cabrera MD Primary Care Provider Encounter Details Date Type Department Care Team (Late st Contact Info) Description 12/31/2023 External Device Data STL ABSTRACTION Provider, Abstract [...] st Contact Info) Description 05/13/2024 9:15 AM PHYSICAL CHEMISTRY PROFESSOR Office Visit [facility] Oncology and Hematology - Yakov [address] [facility] [address] [place] [address] Venkatesh Bolanos MD [address] [facility] [address] [place] [address] documented as of this encounter Visit Diagnoses Not on filedocumented in this encounter Care Teams Food And Beverage Server Relationship Specialty Start Date End Date Jacki Cabrera MD PCP - General Internal Medicine 01/06/19 documented as of this encounter
--- OUTSIDE RECORDS SUMMARY | 2024-05-11 12:19 | XMS_ITS | Encounter Summary ---
Author Organization [facility] Address [address] [place] [address] Care Team Providers Care Help Desk Agent Name Role Phone Jacki Cabrera MD Primary Care Provider Reason for Visit * Reason Comments Chemotherapy Encounter Details Date Type Department Care Team ([facility] st Contact Info) Description 09/19/2023 9:15 AM CDT Office Visit [facility] Oncology and Hematology - [place] [address] [facility] 200 [place] [address] Venkatesh Bolanos MD [address] [facility] [address] [place] [address] Follicular lymphoma, unspecified follicular lymphoma [...] Sign Reading Time Taken Comments Blood Pressure 124/81 09/19/2023 9:02 AM CDT Pulse 104 09/19/2023 9:02 AM CDT Temperature 35.9 ??C (96.7 ??F) 09/19/2023 9:02 AM CD T Respiratory Rate 16 09/19/2023 9:02 AM CDT Oxygen Saturation 93% 09/19/2023 9:02 AM CDT Inhaled Oxygen Concentration - - Weight 101.6 kg (224 lb) 09/19/2023 9:02 AM CDT Height - - Body Mass Index 34.06 04/02/2023 1:37 PM VISITING HOUSEKEEPER documented in this encounter Progress Notes * Venkatesh Bolanos MD - 09/19/2023 9:31 AM CDT HEMATOLOGY / ONCOLOGY PROGRESS NOTE [...] the office for follow-up visit and cycle 4 of chemotherapy today. She has been tolerating treatment well. She has some nausea. Denies any chest pain or shortness of breath. No other new complaints. Review of system Constitutional: Patient did not mention fevers, sweats, Denies any tiredness and fatigue, weight and appetite stable. HEENT: Patient did not mention sinus congestion, [...] hemoglobin 15.4 platelet 1 35,000 creatinine 0.6 Assessment: Plan: Patient Active Problem [...] with Bendamustine Rituxan on 09/18/2023. Labs noted. Patient will proceed with cycle #4 of chemotherapy today. She has been tolerating treatment well. We will order imaging studies after cycle #6. Chemotherapy-induced nausea. Will give her a refill on Zofran today. Psoriatic arthritis. Stable on methotrexate and prednisone. Peripheral neuropathy. Continue gabapentin. Type 2 diabetes. She is on Ozempic. TOBACCO COUNSELING She is not a tobacco/nicotine user. 09/19/2023 Venkatesh Bolanos MD documented in this encounter Plan of Treatment Upcoming Encounters Date Type Department Care Team (Late st Contact Info) Description 05/13/2024 9:15 AM VISITING HOUSEKEEPER Office Visit [facility] Oncology and Hematology - [place] [address] [place] [phone] Venkatesh Bolanos MD [address] [facility] [address] [place] [address] Scheduled Orders Name Type Priority Associated Diagnoses Orde r Schedule BASIC METABOLIC PANEL Lab Stat Follicular lymphoma, unspecified follicular lymphoma type, unspecified body region Expected: 10/17/2023, Expires: 09/18/2024 CBC WITH DIFFERENTIAL Lab Stat Follicular lymphoma, unspecified follicular lymphoma type, unspecified body region Expected: 10/17/2023, Expires: 09/18/2024 documented as of this encounter Visit Diagnoses Diagnosis Follicular lymphoma, unspecified follicular lymphoma type, unspecified body region- Primary documented in this encounter Care Teams Help Desk Agent Relationship Specialty Start Date End Date Jacki Cabrera MD PCP - General Internal Medicine 01/06/19 documented as of this encounter
--- OUTSIDE RECORDS SUMMARY | 2024-05-11 12:19 | XMS_ITS | Encounter Summary ---
Author Organization [facility] [email or web address] [facility] Address [address] [place] [address] Care Team Providers Care Trauma Program Manager Name Role Phone Jacki Cabrera MD Primary Care Provider Reason for Visit * Reason Onset Date Comments Medication Review 12/06/2023 Encounter Details Date Type Department Care Team (Late st Contact Info) Description 12/06/2023 Telephone [facility] Oncology and Hematology - [place] [address] [place] [address] [facility] [address] [place] [address] Venkatesh Bolanos MD [address] [facility] [address] [place] [address] Medication Review Social History Tobacco Use Types Packs/Day Years [...] * Telephone Encounter - Suni Peterson - 12/06/2023 12:51 PM CDT ----- Message from Dr. Venkatesh Bolanos sent at 12/05/2023 5:02 PM CDT ----- Regarding: RE: talts injection She will be okay to receive Taltz injection as her lymphoma is in remission. ----- Message ----- From: Suni Peterson Sent: 12/05/2023 3:38 PM CDT To: Venkatesh Bolanos MD Subject: talts injection Got a fax from [facility] to see if we are okay with talts injections. I have placed notes on your desk to review file. please advise. * Telephone Encounter - Suni Peterson - 12/06/2023 12:[address] Guerrero's office contacted us to attain permission from Dr. Bolanos for Taltz injections. [facility] had reviewed the notes sent by Dr. Guerrero's office and is okay with patient getting Taltz injections. documented in this encounter Plan of Treatment Upcoming Encounters Date Type Department Care Team (Late st Contact Info) Description 05/13/2024 9:15 AM RESOURCE TECHNICIAN Office Visit [facility] Oncology and Hematology - [place] [address] [place], [place] [phone] Venkatesh Bolanos MD [address] [facility] [address] [place] [address] documented as of this encounter Visit Diagnoses Not on filedocumented in this encounter Care Teams Trauma Program Manager Relationship Specialty Start Date End Date Jacki Cabrera MD PCP - General Internal Medicine 01/06/19 documented as of this encounter
--- OUTSIDE RECORDS SUMMARY | 2024-05-11 12:19 | XMS_ITS | Encounter Summary ---
Author Organization [facility] [employer] [facility] Address [address] [place] [address] Care Team Providers Care Tobacco Prevention Health Educator Name Role Phone Jacki Cabrera MD Primary Care Provider Encounter Details Date Type Department Care Team ([facility] Contact Info) Description 09/09/2023 Orders Only [facility] Oncology and Hematology [facility] [address] [place] [address] Venkatesh Bolanos MD [facility] [employer] [address] [place] [phone] Follicular lymphoma, unspecified follicular lymphoma type, [...] (Late Contact Info) Description 05/13/2024 9:15 AM HOME HEALTH BILLING SPECIALIST Office Visit [facility] Oncology and Hematology [place] [address] [place] [address] Venkatesh Bolanos MD [facility] [employer] [address] [place] [address] documented as of this encounter Visit Diagnoses Diagnosis Follicular lymphoma, unspecified follicular lymphoma type, unspecified body region documented in this encounter Care Teams Tobacco Prevention Health Educator Relationship Specialty Start Date End Date Jacki Cabrera MD PCP - General Internal Medicine 01/06/19 documented as of this encounter
--- OUTSIDE RECORDS SUMMARY | 2024-05-11 12:19 | XMS_ITS | Encounter Summary ---
Author Organization [facility] [employer] [facility] Address [address] [place] [address] Care Team Providers Care Roundhouse Firer/Fireman Name Role Phone Jacki Cabrera MD Primary Care Provider Encounter Details Date Type Department Care Team (Late Contact Info) Description 09/23/2023 Orders Only [facility] Oncology and [facility] [address] [place] [address] Venkatesh Bolanos MD [address] [place], [place] [address] [address] [place] [address] Follicular lymphoma, unspecified follicular lymphoma type, [...] (Late Contact Info) Description 05/13/2024 9:15 AM RELEASE ENGINEER Office Visit [facility] Oncology and Hematology [facility] [address] [place] [address] Venkatesh Bolanos MD [facility] [email or web address] [address] [place] [address] documented as of this encounter Visit Diagnoses Diagnosis Follicular lymphoma, unspecified follicular lymphoma type, unspecified body region documented in this encounter Care Teams Roundhouse Firer/Fireman Relationship Specialty Start Date End Date Jacki Cabrera MD PCP - General Internal Medicine 01/06/19 documented as of this encounter
--- OUTSIDE RECORDS SUMMARY | 2024-05-11 12:19 | XMS_ITS | Encounter Summary ---
Author Organization [facility] Address [address] [place] [address] Care Team Providers Care Math Interventionist Name Role Phone Jacki Cabrera MD Primary Care Provider Encounter Details Date Type Department Care Team (Late st Contact Info) Description 03/10/2024 External Device Data STL ABSTRACTION Provider, [...] st Contact Info) Description 05/13/2024 9:15 AM PICK PULLING MACHINE TENDER Office Visit [facility] Oncology and Hematology - [place] [address] [facility] [address] [place] [address] Venkatesh Bolanos MD [address] [facility] [address] [place] [address] documented as of this encounter Visit Diagnoses Not on filedocumented in this encounter Care Teams Math Interventionist Relationship Specialty Start Date End Date Jacki Cabrera MD PCP - General Internal Medicine 01/06/19 documented as of this encounter
--- OUTSIDE RECORDS SUMMARY | 2024-05-11 12:19 | XMS_ITS | Encounter Summary ---
Author Organization [facility] [employer] [facility] Address [address] [place] [address] Care Team Providers Care Quality Associate Name Role Phone Jacki Cabrera MD Primary Care Provider Encounter Details Date Type Department Care Team ([facility] Contact Info) Description 01/22/2024 Orders Only [facility] Oncology and Hematology [facility] [address] [place] [address] Venkatesh Bolanos MD [facility] [email or web address] [address] [place] [phone] Social History Tobacco Use Types Packs/Day [...] (Late Contact Info) Description 05/13/2024 9:15 AM PHLEBOTOMY TECH Office Visit [facility] Oncology and Hematology [place] [address] [place] [address] Venkatesh Bolanos MD [facility] [email or web address] [address] [place] [phone] documented as of this encounter Procedures Procedure Name Priority Date/Time Associated Diagnosis Comments COMPREHENSIVE METABOLIC PANEL Routine 01/22/2024 4:00 PM CDT BASIC METABOLIC PANEL Routine 01/22/2024 3:56 PM CDT documented in this encounter Results * COMPREHENSIVE METABOLIC PANEL (01/22/2024 4:00 PM CDT) Blood Venkatesh Bolanos MD CHEMISTRY ORDERABLES * BASIC METABOLIC PANEL (01/22/2024 3:56 PM CDT) Blood Venkatesh Bolanos MD CHEMISTRY ORDERABLES documented in this encounter Visit Diagnoses Not on filedocumented in this encounter Care Teams Quality Associate Relationship Specialty Start Date End Date Jacki Cabrera MD PCP - General Internal Medicine 01/06/19 documented as of this encounter
--- OUTSIDE RECORDS SUMMARY | 2024-05-11 12:19 | XMS_ITS | Encounter Summary ---
Author Organization [facility] [employer] [facility] Address [address] [place] [address] Care Team Providers Care Sulfuric Acid Plant Supervisor Name Role Phone Jacki Cabrera MD Primary Care Provider Encounter Details Date Type Department Care Team (Late Contact Info) Description 10/21/2023 Orders Only [facility] Oncology and [facility] [address] [place] [address] Venkatesh Bolanos MD [address] [place], [place] [address] [address] [place] [phone] Follicular lymphoma, unspecified follicular lymphoma type, [...] (Late Contact Info) Description 05/13/2024 9:15 AM BUNDLER Office Visit [facility] Oncology and Hematology [facility] [address] [place] [address] Venkatesh Bolanos MD [facility] [employer] [address] [place] [phone] documented as of this encounter Visit Diagnoses Diagnosis Follicular lymphoma, unspecified follicular lymphoma type, unspecified body region documented in this encounter Care Teams Sulfuric Acid Plant Supervisor Relationship Specialty Start Date End Date Jacki Cabrera MD PCP - General Internal Medicine 01/06/19 documented as of this encounter
--- OUTSIDE RECORDS SUMMARY | 2024-05-11 12:20 | XMS_ITS | Encounter Summary ---
Author Organization [facility] Address [address] [place] [address] Care Team Providers Care Medical Chemist Name Role Phone Jacki Cabrera MD Primary Care Provider Encounter Details Date Type Department Care Team (Latest Contact Info) Description 01/06/2019 12:40 PM CDT Ancillary Procedure [facility] Orthopedic [facility] [place] [address] [place] [address] [place] [id number] [place] [address] [address] [place] [address] Right ankle pain, unspecified chronicity Social History Tobacco Use Types Packs/Day Years Used Date Smoking Tobacco: Every Day Cigarettes Smokeless Tobacco: Never Sex and Gender Information Value Date Recorded Sex Assigned at Not on file Gender Identity Not on file Sexual Orientation Not on file documented as of this encounter Plan of Treatment Upcoming Encounters Date Type Department Care Team (Late st Contact Info) Description 05/13/2024 9:15 AM FLUID DESIGNER Office Visit [facility] Oncology and Hematology - [place] [address] [facility] [address] [place] [address] Venkatesh Bolanos MD [address] [facility] [address] [place] [address] documented as of this encounter Procedures Procedure Name Priority Date/Time Associated Diagnosis Comments XR ANKLE 3+ VW RIGHT Routine 01/06/2019 12:44 PM CDT Right ankle pain, unspecified chronicity documented in this encounter Results * XR ANKLE 3+ VW RIGHT (01/06/2019 12:44 PM CDT) Anatomical Region Laterality Modality Ankle / Foot Computed Radiogr aphy Narrative 01/07/2019 8:34 AM CDT Radiographic Imaging: Today in the office we took 3 views of the right ankle. ?? Radiographic Impression: Radiographic findings show 6 screws across the ankle. There is 1 broken screw in the syndesmosis and 1 broken screw in the foot. There is good fusion of the subtalar joint, but the ankle joint line is still visible. ?? [place] Ball MD DIAGNOSTIC IMAGING O RDERABLES documented in this encounter Visit Diagnoses Diagnosis Right ankle pain, unspecified chronicity documented in this encounter Care Teams Medical Chemist Relationship Specialty Start Date End Date Jacki Cabrera MD PCP - General Internal Medicine 01/06/19 documented as of this encounter
--- OUTSIDE RECORDS SUMMARY | 2024-05-11 12:20 | XMS_ITS | Encounter Summary ---
Author Organization [facility] [employer] [facility] Address [address] [place] [address] Care Team Providers Care Steel Fabricator Name Role Phone Jacki Cabrera MD Primary Care Provider Encounter Details Date Type Department Care Team ([facility] Contact Info) Description 06/24/2023 Abstract [facility] Oncology and Hematology - [place] [address] [place] [address] Venkatesh Bolanos MD [address] [place], [place] [address] [address] [place] [phone] Social History Tobacco Use Types Packs/Day [...] Encounters Date Type Department Care Team ([facility] Contact Info) Description 05/13/2024 9:15 AM CELLOPHANE BAG MACHINE OPERATOR Office Visit [facility] Oncology and Hematology - [place] [address] [place] [address] Venkatesh Bolanos MD [address] [place], [place] [address] [address] [place] [phone] documented as of this encounter Visit Diagnoses Not on filedocumented in this encounter Care Teams Steel Fabricator Relationship Specialty Start Date End Date Jacki Cabrera MD PCP - General Internal Medicine 01/06/19 documented as of this encounter
--- OUTSIDE RECORDS SUMMARY | 2024-05-11 12:20 | XMS_ITS | Encounter Summary ---
Author Organization [facility] [employer] [facility] Address [address] [place] [address] Care Team Providers Care Teacher Education Instructor Name Role Phone Jacki Cabrera MD Primary Care Provider Encounter Details Date Type Department Care Team ([facility] Contact Info) Description 04/05/2023 Abstract [facility] Oncology and Hematology - [place] [address] [place] [address] Venkatesh Bolanos MD [address] [place], [place] [address] [address] [place] [phone] Social History Tobacco Use Types Packs/Day [...] Upcoming Encounters Date Type Department Care Team ([facility] Contact Info) Description 05/13/2024 9:15 AM BOMB SQUAD OFFICER Office Visit [facility] Oncology and Hematology - [place] [address] [place] [address] Venkatesh Bolanos MD [address] [place], [place] [address] [address] [place] [phone] documented as of this encounter Visit Diagnoses Not on filedocumented in this encounter Care Teams Teacher Education Instructor Relationship Specialty Start Date End Date Jacki Cabrera MD PCP - General Internal Medicine 01/06/19 documented as of this encounter
--- OUTSIDE RECORDS SUMMARY | 2024-05-11 12:20 | XMS_ITS | Encounter Summary ---
Author Organization [facility] Address [address] [place] [address] Phone Care Team Providers Care Attendance Clerk Name Role Phone Jacki Cabrera MD Primary Care Provider Reason for Visit * Reason Comments New Patient Leukocytosis * Consult, Test & Initiate Treatment (Routine) - Closed Specialty Diagnoses / Procedures Referred By Contkristan t Referred To Contact Diagnoses Leukocytosis Jacki Cabrera MD [address] [place] [address] [place] [address] Phone: tel: fax: Sammy Hickman MD [address] [place] [address] [place] [address] Phone: tel: fax: Referral ID Status Reason Start Date Expiration Date Visits Re quested Visits Authorized [id number] Closed 1 1 Encounter Details Date Type Department Care Team (Late st Contact Info) Description 04/12/2022 12:30 PM RETAIL INTERIOR DESIGNER Office Visit [facility] [address] [place] [address] Jacki Cabrera MD [address] [place] [address] Sammy Hickman MD [address] [place] [address] [place] [address] Corticosteroid-induce d neutrophilia (Primary Dx); Smoking addiction Social History Tobacco Use Types Packs/Day Years Used Date Smoking Tobacco: Every Day Cigarettes Smokeless Tobacco: Never Tobacco Cessation:Ready to Q uit: Not Asked; Counseling Given: Not Answered Alcohol Use Standard Drinks/Week Comments Not Currently 0 (1 standard drink = 0.6 oz pur e alcohol) Comments No Sex and Gender Information Value Date Recorded Sex Assigned at Not on file Legal Sex Female 9:51 AM RETAIL INTERIOR DESIGNER Gender Identity Not on file Sexual Orientation Not on file COVID-19 Exposure Response Date Recorded In the last 10 days, have yo u been in contact with someone who was confirmed or suspected to have Coronavirus/COVID-19? No / Unsure 04/12/2022 11:48 AM RETAIL INTERIOR DESIGNER documented as of this encounter Last Filed Vital Signs Vital Sign Reading Time Taken Comments Blood Pressure 158/90 04/12/2022 12:31 PM RETAIL INTERIOR DESIGNER Pulse 114 04/12/2022 12:31 PM RETAIL INTERIOR DESIGNER Temperature 36.5 ??C (97.7 ??F) 04/12/2022 1 2:31 PM RETAIL INTERIOR DESIGNER Respiratory Rate 16 04/12/2022 12:3 1 PM RETAIL INTERIOR DESIGNER Oxygen Saturation 95% 04/12/2022 12: 31 PM RETAIL INTERIOR DESIGNER Inhaled Oxygen Concentration - - Weight 114.5 kg (252 lb 6.4 oz) 022 12:31 PM RETAIL INTERIOR DESIGNER Height 172.7 cm (5' 8 ) 04/12/2022 12:3 1 PM RETAIL INTERIOR DESIGNER Body Mass Index 38.38 04/12/2022 12:31 PM RETAIL INTERIOR DESIGNER documented in this encounter Functional Status * Question Answer Date of Assessment Author Little interest or pleasure in doing things Not at all 04/12/2022 12:31 PM RETAIL INTERIOR DESIGNER Nohemi Colin LPN Feeling down, depressed, or hopeless Not at all 04/12/2022 12:31 PM RETAIL INTERIOR DESIGNER Nohemi Colin LPN * Over the past 2 weeks, how often have you been bothered by any of the following problems? Question Answer Date of Assessment Author Patient Health Questionnaire -2 Score 0 04/12/2022 12:31 PM RETAIL INTERIOR DESIGNER Nohemi Colin LPN documented as of this encounter Progress Notes * Sammy Hickman MD - 04/12/2022 12:30 PM CST Images from the original note were not included. Patient: Karolina Ramos Age: 67 y.o. : 1955 Encounter Dept: [facility] Encounter Date: 04/12/2022 Care Team: Current Providers PCP: Jacki Cabrera MD Encounter Provider: Sammy Hickman MD Referring Provider: Jacki Cabrera MD Consulting Physician: Sammy Hickman MD C: Dr. 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 HISTORY OF PRESENT ILLNESS: Karolina Ramos is a very pleasant 67-year-old white female who has been battling psoriatic arthritis for multiple years now. The patient has been kept on prednisone 5 mg once a day for at least one raj half to two years now to prevent exacerbation of the rashes and arthritic pain from psoriasis. Attempts have been made to cut back the prednisone even down to 4 mg once a day and she would have exacerbation of her symptoms. She has been tolerating the prednisone quite well. The patient denied anysignificant infection such as pneumonia but has had occasional urinary tract infection. The patienthas been referred for mild neutrophilia that has been going on since at least December 2021. The patie nt's white count has been ranging between 12,000-15,000 with the last blood test from 02/26/22 showing white count 13,8000 with 70% neutrophils and 16% lymphocytes with no immature cells or left shift. The patient also admitted to chronic smoking which she has been trying to cut back. There has been no weight loss. Because of the above chronic neutrophilia, this consultation is being made. 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 PAST TREATMENT: Not applicable. CURRENT TREATMENT: Not applicable. TREATMENT GUIDELINES: Not applicable. PROGNOSIS: Good in regards to hematological issues. EXPECTED RESPONSE TO TREATMENT: Not applicable. EXPECTED QUALITY OF LIFE DURING TREATMENT: Not applicable. ECO-2 PAIN: Positive for diffuse joint pain due to psoriatic arthritis and DJD, taking [id number] pain medication. PLAN FOR PAIN: Continue current treatment. CODE STATUS: Full code. END OF LIFE: ASSESSMENT: 1. Chronic mild neutrophilia, most likely secondary to chronic low dose prednisone use for psoriatic arthritis, most likely also exacerbated by chronic smoking. 2. Smoking addiction. PLAN: I had a long chat with Hope and explained to her that I am very confident that her mild chronic neutrophilia is not due to a blood cancer such as leukemia especially since there is evidence that the white count actually improved significantly in mid-December 2021. Furthermore, there has been nosignificant worsening of this neutrophilia in the last several months of monitoring. I counseled Hope that prednisone or steroid therapy is one of the most common medications that can cause chronic neutrophilia but it should not really cause any significant issues in regards to the high white count. Furthermore, her chronic cigarette smoking can also contribute to the neutrophilia. Nevertheless, I think it is very reasonable to obtain blood for peripheral blood flow cytometry and also rule out for CML by checking the BCR/ABL gene. I will call her with the results. I also counseled her to discontinue smoking as well. I did not give her any further followup and I will call her with the results of the peripheral blood cytometry and CML workup. There is no indication for bone marrow biopsy. TIME SPENT: PAST MEDICAL HISTORY: Notable for the above mentioned psoriatic arthritis, diabetes mellitus, hypertriglyceridemia, essential hypertension, osteoarthritis of the knee, chronic shortness of breath andcoughing for many years, DJD, mildly low B12 levels. The patient tells me that she has also been having some mild memory deficit and occasional headaches and being worked up with MRI of the brain. The patient denied any myocardial infarction or stroke. The patient had one episode of small bowel obstruction back in December 2021 but this was managed conservatively with a lot of success and this has not recurred. PAST SURGICAL HISTORY: Please refer to intake sheet. SOCIAL HISTORY: The patient is and lives in [place], [place]. The patient admitted to chronic cigarette smoking for many years but has recently cut back to ten cigarettes sticks a day and has been smoking she age 32. The patient denied alcohol abuse. 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 FAMILY HISTORY: The patient's mom had ovarian cancer and succumbed to this. A sister succumbed to metastatic lung cancer. ALLERGIES: The patient is allergic to penicillin causing hives and shortness of breath and the patient had nausea and vomiting from metformin. MEDICATION: Please refer to intake sheet. REVIEW OF SYSTEMS: See HPI; otherwise, 12-point review of systems is negative. In addition, the patient admitted to some anorexia but no significant weight loss. The patient has had occasional hot flashes and occasional night sweats. The patient admitted to chronic shortness of breath especially on exertion and some intermittent coughing but no hemoptysis. The patient admitted to occasional epigastric discomfort. The patient has reflux symptoms. The patient has chronic generalized bone and joint aches due to DJD and psoriatic arthritis. The patient has generalized weakness. The patient admitted to tingling and numbness in hands and feet due to neuropathy. The patient admitted to anxiety and depression. PHYSICAL EXAM: On exam, Hope appears stable but anxious. Height is 5 feet 8 inches and weight is 252 pounds. Bloodpressure 158/90, heart rate 114 per minute, respiratory rate 16 per minute, temperature 97.7 ??F. Oxygen saturation 95% on room air. There is no significant pallor. There is no jaundice. There is no oral mucositis and there is no oral thrush. There is no palpable adenopathy in the neck, supraclavicular, axillary or inguinal areas. Neck is supple, without jugular venous distention. Lungs are quiteclear and there are no rales, rhonchi or wheezing. Cardiac exam reveals no irregularity and there are no gallops or murmurs. The abdomen is distended due to obesity but there is no obvious hepatomegaly or splenomegaly. Bowel sounds are normoactive. There is mild bilateral leg edema which appears kashif chronic and nonpitting. Neurologic examination reveals some grade 1 sensory neuropathy of the hands and feet. LABORATORY/PATHOLOGY/IMAGING NOTES: 02/26/22: Labs showed white count 13,800, hemoglobin 13.7, hematocrit 41.8, MCV 88.6, and platelet count 269,000 with normal differential. Sammy Hickman M.D. PD/lmr Vitals: Vitals: 04/12/22 1231 BP: 158/90 Pulse: (!) 114 Resp: 16 Temp: 97.7 ??F (36.5 ??C) TempSrc: Tympanic SpO2: 95% Weight: 252 lb 6.4 oz (114.5 kg) Height: 5' 8 (1.727 m) Body surface area is 2.34 meters squared. Body mass index is 38.38 kg/m??. Pain Score: 6 Pain Loc: Generalized Pain Edu?: Yes Allergies: Allergies Allergen Reactions ??? Penicillins Rash, Shortness of Breath and Unknown ??? Metformin Nausea and Vomiting PMH/SgH/FH/SH: Past medical, surgical, family and social histories were reviewed at this visit. Past Medical History Positives Diagnosis Date ??? Diabetes mellitus (HCC) ??? Hypertension Past Surgical History: Procedure Laterality Date ??? ANKLE SURGERY Right ??? BACK SURGERY ??? BREAST SURGERY ??? GASTRIC BYPASS SURGERY ??? HYSTERECTOMY ??? JOINT REPLACEMENT ??? WRIST SURGERY Right No family history on file. No family status information on file. Social History Socioeconomic History ??? Marital status: Tobacco Use ??? Smoking status: Every Day Types: Cigarettes ??? Smokeless tobacco: Never Substance and Sexual Activity ??? Alcohol use: Not Currently ??? Drug use: Never Oncology History: Oncology History No history exists. Cancer Staging: Cancer Staging No matching staging information was found for the patient. Cumulative dose Purpose/Goal Comments Lifetime Dose Tracking No doses have been documented on this patient for the following tracked chemicals: Doxorubicin, Epirubicin, Idarubicin, Daunorubicin, Mitoxantrone, Bleomycin, Ifosfamide, Methotrexate, Cyclophosphamide, Cisplatin, Carboplatin Current Medications: Outpatient Encounter Medications as of 04/12/2022 Medication Sig Dispense Refill ??? albuterol (ProAir HFA) 108 (90 Base) MCG/ACT Aerosol Solution take 2 Puffs by inhalation every 4 hours as needed. ??? baclofen (LIORESAL) 10 MG Tablet Take 10 mg by mouth 3 times daily as needed. ??? calcitRIOL (ROCALTROL) 0.25 MCG Capsule Take 0.25 mcg by mouth daily. ??? DULoxetine (CYMBALTA) [address] Particles Take 120 mg by mouth daily. ??? escitalopram (LEXAPRO) 20 MG Tablet Take 20 mg by mouth daily. ??? Farxiga 5 MG Tablet Take 5 mg by mouth daily. ??? fluticasone (Flonase) 50 MCG/ACT Suspension 1-2 Sprays by Nasal route daily. Use in each nostril as directed. ??? folic acid (FOLVITE) 1 MG Tablet Take 1 mg by mouth daily. ??? gabapentin (NEURONTIN) 600 MG Tablet Take 600 mg by mouth 3 times daily. ??? lisinopril-hydroCHLOROthiazide (PRINZIDE, ZESTORETIC) 20-25 MG Tablet Take 1 Tablet by mouth daily. ??? lovastatin (MEVACOR) 20 MG Tablet Take 20 mg by mouth daily. ??? methotrexate 2.5 MG Tablet Take 8 Tablets by mouth once a week ??? naloxone HCl (Narcan) 4 MG/0.1ML Liquid as needed. ??? nystatin (MYCOSTATIN) [id number] UNIT/GM Cream Apply 2 times daily as needed. Apply to affected area ??? omeprazole (PriLOSEC) 20 MG CAPSULE DELAYED RELEASE Take 20 mg by mouth daily. ??? Ozempic, 0.25 or 0.5 MG/DOSE, 2 MG/1.5ML Solution Pen-injector 0.5 mg by Subcutaneous route once a week. ??? predniSONE (DELTASONE) 5 MG Tablet Take 5 mg by mouth daily. ??? QUEtiapine (SEROquel) 100 MG Tablet Take 100 mg by mouth daily. ??? sulfaSALAzine (AZULFIDINE) 500 MG Tablet Take 500 mg by mouth 2 times daily. ??? Taltz 80 MG/ML Solution Auto-injector every 30 days. ??? zolpidem (AMBIEN) 10 MG Tablet Take 10 mg by mouth nightly. No facility-administered encounter medications on file as of 04/12/2022. Labs: No visits with results within 7 Day(s) from this visit. Latest known visit with results is: No results found for any previous visit. [place] INTERIOR [place]IGN[place] documented in this encounter Plan of Treatment Scheduled Orders Name Type Priority Associated Diagnoses Orde r Schedule COMPLETE BLOOD COUNT (CBC) WITH DIFF Lab Routine Corticosteroid-induced neutrophilia Expected: 04/12/2022, Expires: 04/12/2022 CMP (COMPREHENSIVE METABOLIC PANEL) Lab Routine Corticosteroid-induced neutrophilia Expected: 04/12/2022, Expires: 04/12/2022 LACTATE DEHYDROGENASE (LD) Lab Routine Corticosteroid-induced neutrophilia Expected: 04/12/2022, Expires: 04/12/2022 MAGNESIUM (MG) Lab Routine Corticosteroid-induced neutrophilia Expected: 04/12/2022, Expires: 04/12/2022 FLOW, PERIPHERAL BLOOD OH Lab Routine Corticosteroid-induced neutrophilia Expected: 04/12/2022, Expires: 04/12/2022 documented as of this encounter Results * FISH BCR/ABL T(9;22) FOR CML/ALL (04/17/2022) Other Sammy Hickman MD PATHOLOGY/CYTOLOGY ORDERABLES nal Result CANCER OUTER DIAMETER [facility] [address] [place] [address], documented in this encounter Visit Diagnoses Diagnosis Corticosteroid-induced neutrophilia- Primary Smoking addiction Tobacco use disorder documented in this encounter Care Teams Attendance Clerk Relationship Specialty Start Date End Date Jacki Cabrera MD [address] [place] [address] PCP - General Internal Medicine 04/12/22 documented as of this encounter
--- OUTSIDE RECORDS SUMMARY | 2024-05-11 12:20 | XMS_ITS | Encounter Summary ---
Author Organization [facility] Address [address] [place] [address] Care Team Providers Care Computer Typesetter Name Role Phone Unavailable Primary Care Provider Unavailabl e Encounter Details Date Type Department Care Team (Late st Contact Info) Description 12/31/2018 Abstract [facility] Orthopedic Surgery - [place] [address] [place] [address] [place] [address] [facility] [address] [facility] [address] [place] [address] Social History Tobacco Use Types Packs/Day Years Used Date Smoking Tobacco: Never Assessed Sex and Gender Information Value Date Recorded Sex Assigned at Not on file Gender Identity Not on file Sexual Orientation Not on file documented as of this encounter Plan of Treatment Upcoming Encounters Date Type Department Care Team (Late st Contact Info) Description 05/13/2024 9:15 AM FOOD DEMONSTRATOR Office Visit [facility] Oncology and Hematology - [place] [address] [facility] [address] [place] [address] Venkatesh Bolanos MD [address] [facility] [address] [place] [address] documented as of this encounter Visit Diagnoses Not on filedocumented in this encounter
--- OUTSIDE RECORDS SUMMARY | 2024-05-11 12:20 | XMS_ITS | Encounter Summary ---
Author Organization [employer] Care Team Providers Care Digital Marketing Program Manager Name Role Phone Jacki Cabrera MD Primary Care Provider Encounter Details Date Type Department Care Team (Latest Contact Info) Description 04/12/2022 Travel Social History Tobacco Use Types Packs/Day Years Used Date Smoking Tobacco: Every Day Cigarettes Smokeless Tobacco: Never Alcohol Use Standard Drinks/Week Comments Not Currently 0 (1 standard drink = 0.6 oz pur e alcohol) Comments No Sex and Gender Information Value Date Recorded Sex Assigned at Not on file Legal Sex Female 9:51 AM CENTRIFUGAL WAX MOLDER Gender Identity Not on file Sexual Orientation Not on file COVID-19 Exposure Response Date Recorded In the last 10 days, have yo u been in contact with someone who was confirmed or suspected to have Coronavirus/COVID-19? No / Unsure 04/12/2022 11:48 AM CENTRIFUGAL WAX MOLDER documented as of this encounter Functional Status * Question Answer Date of Assessment Author Little interest or pleasure in doing things Not at all 04/12/2022 12:31 PM Nohemi Le LPN Feeling down, depressed, or hopeless Not at all 04/12/2022 12:31 PM Nohemi Le LPN * Over the past 2 weeks, how often have you been bothered by any of the following problems? Question Answer Date of Assessment Author Patient Health Questionnaire -2 Score 0 04/12/2022 12:31 PM Nohemi Le LPN documented as of this encounter Plan of Treatment Not on file documented as of this encounter Visit Diagnoses Not on filedocumented in this encounter Care Teams Digital Marketing Program Manager Relationship Specialty Start Date End Date Jacki Cabrera MD [address] [place] [address] PCP - General Internal Medicine 04/12/22 documented as of this encounter
--- OUTSIDE RECORDS SUMMARY | 2024-05-11 12:20 | XMS_ITS | Encounter Summary ---
Author Organization [facility] [employer] [facility] Address [address] [place] [address] Care Team Providers Care Plaster Form Maker Name Role Phone Jacki Cabrera MD Primary Care Provider Encounter Details Date Type Department Care Team (Late Contact Info) Description 06/11/2023 Orders Only [facility] Oncology and Hematology - [place] [address] [place] [address] Venkatesh Bolanos MD [address] [place] [address] Need for hepatitis B screening test (Primary Dx) Social History Tobacco Use Types [...] as of this encounter Progress Notes * Milagros David - 06/11/2023 9:23 AM CST tb VALUE TESTER documented in this encounter Plan of Treatment Upcoming Encounters Date Type Department Care Team (Late Contact Info) Description 05/13/2024 9:15 AM AIR VALUE TESTER Office Visit [facility] Oncology and Hematology - [place] [address] [place] [address] Venkatesh Bolanos MD [address] [place] [address] Scheduled Orders Name Type Priority Associated Diagnoses Orde r Schedule QUANTIFERON TB GOLD Lab Routine Need for hepatitis B screening test Expected: 06/11/2023, Expires: 06/11/2024 HEPATITIS B SURFACE ANTIGEN Lab Routine Need for hepatitis B screening test Expected: 06/11/2023, Expires: 06/11/2024 documented as of this encounter Visit Diagnoses Diagnosis Need for hepatitis B screening test- Primary documented in this encounter Care Teams Plaster Form Maker Relationship Specialty Start Date End Date Jacki Cabrera MD PCP - General Internal Medicine 01/06/19 documented as of this encounter
--- OUTSIDE RECORDS SUMMARY | 2024-05-11 12:20 | XMS_ITS | Encounter Summary ---
Author Organization [facility] [employer] [facility] Address [address] [place] [address] Care Team Providers Care Brim Buster Name Role Phone Jacki Cabrera MD Primary Care Provider Encounter Details Date Type Department Care Team ([facility] Contact Info) Description 05/23/2023 Orders Only [facility] Oncology and Hematology [facility] [address] [place] [address] Venkatesh Bolanos MD [facility] [address] [place] [address] Need for hepatitis B screening test (Primary Dx); Follicular lymphoma, unspecified follicular lymphoma type, unspecified [...] Upcoming Encounters Date Type Department Care Team ([facility] Contact Info) Description 05/13/2024 9:15 AM DRILL RIG OPERATOR HELPER Office Visit [facility] Oncology and Hematology [facility] [address] [place] [address] Venkatesh Bolanos MD [address] [place] [address] Scheduled Orders Name Type Priority Associated Diagnoses Orde r Schedule HEPATITIS B SURFACE ANTIGEN Lab Routine Need for hepatitis B screening test Expected: 05/23/2023, Expires: 05/23/2024 documented as of this encounter Visit Diagnoses Diagnosis Need for hepatitis B screening test- Primary Follicular lymphoma, unspecified follicular lymphoma type, unspecified body region documented in this encounter Care Teams Brim Buster Relationship Specialty Start Date End Date Jacki Cabrera MD PCP - General Internal Medicine 01/06/19 documented as of this encounter
--- OUTSIDE RECORDS SUMMARY | 2024-05-11 12:20 | XMS_ITS | Encounter Summary ---
Author Organization [facility] Address [address] [place] [address] Care Team Providers Care Ibm Bpm Architect Name Role Phone Jacki Cabrera MD Primary Care Provider Reason for Visit * Reason Onset Date Comments CT scan 01/28/2019 Encounter Details Date Type Department Care Team (Late st Contact Info) Description 01/28/2019 Telephone [facility] Orthopedic Surgery - [place] [address] [place] [address] [place] [address] [place] [address] [address] scan Social History Tobacco Use Types Packs/Day Years Used Date Smoking Tobacco: Every Day Cigarettes Smokeless Tobacco: Never Sex and Gender Information Value Date Recorded Sex Assigned at Not on file Gender Identity Not on file Sexual Orientation Not on file documented as of this encounter Miscellaneous Notes * Telephone Encounter - Wesley Ball MD - 01/28/2019 2:58 PM CDT I called her about the CT scan. The CT report faxed over shows solid fusion of the ankle and subtalar joint. She does not need any further bone work of the foot or ankle, and I have no surgery to offer as far as her chronic pain. She should continue to work with her pain doctor, work on her weight and stop smoking to help with her overall health, and exercise doing nonweightbearing activity such as cycling or swimming. * Telephone Encounter - Ansley Arzola - 01/28/2019 11:53 AM CDT FLYNN was 01/06/2019 for Rt ankle pain. Patient wanting to know if Dr. Ball has reviewed her CT scanthat is in Media. Patient wanting to know if she needs to make another appt. Please advise documented in this encounter Plan of Treatment Upcoming Encounters Date Type Department Care Team (Late st Contact Info) Description 05/13/2024 9:15 AM LUTE PACKER OR APPLIER Office Visit [facility] Oncology and Hematology - [place] [address] [place] [address] [facility] [address] [place] [address] [place] [address] [place] [address] [address] [place] [address] documented as of this encounter Visit Diagnoses Not on filedocumented in this encounter Care Teams Ibm Bpm Architect Relationship Specialty Start Date End Date Jacki Cabrera MD PCP - General Internal Medicine 01/06/19 documented as of this encounter
--- OUTSIDE RECORDS SUMMARY | 2024-05-11 12:20 | XMS_ITS | Clinical Summary ---
Author Organization [facility] Address [address], [facility] [address] [place] [address] Phone Care Team Providers Care Cardiac Catheterization Technologist Name Role Phone Jacki Cabrera MD Primary Care Provider Allergies Active Allergy Reactions Criticality Noted Date Comments Metformin Nausea,Vomiting 06/05/2019 Penicillins Rash,Shortness of Breath,Unknown High Medications baclofen (LIORESAL) 10 MG Tablet Take 10 mg by mouth 3 times daily as needed. 2 Active calcitRIOL (ROCALTROL) 0.25 MCG Capsule Take 0.25 mcg by mouth daily. 2 Active DULoxetine (CYMBALTA) [address] Particles Take 120 mg by mouth daily. 9 Active escitalopram (LEXAPRO) 20 MG Tablet Take 20 mg by mouth daily. 2 Active fluticasone (Flonase) 50 MCG/ACT Suspension 1-2 Sprays by Nasal route daily. Use in each nostril as directed. Active folic acid (FOLVITE) 1 MG Tablet Take 1 mg by mouth daily. 5 Active gabapentin (NEURONTIN) 600 MG Tablet Take 600 mg by mouth 3 times daily. 7 Active lisinopril-hydr oCHLOROthiazide (PRINZIDE, ZESTORETIC) 20-25 MG Tablet Take 1 Tablet by mouth daily. 8 Active lovastatin (MEVACOR) 20 MG Tablet Take 20 mg by mouth daily. 7 Active methotrexate 2.5 MG Tablet Take 8 Tablets by mouth once a week 2 Active naloxone HCl (Narcan) 4 MG/0.1ML Liquid as needed. 0 Active omeprazole (PriLOSEC) 20 MG CAPSULE DELAYED RELEASE Take 20 mg by mouth daily. 7 Active nystatin (MYCOSTATIN) 875373 UNIT/GM Cream Apply 2 times daily as needed. Apply to affected area Active predniSONE (DELTASONE) 5 MG Tablet Take 5 mg by mouth daily. 2 Active albuterol (ProAir HFA) 108 (90 Base) MCG/ACT Aerosol Solution take 2 Puffs by inhalation every 4 hours as needed. Active sulfaSALAzine (AZULFIDINE) 500 MG Tablet Take 500 mg by mouth 2 times daily. 2 Active Taltz 80 MG/ML Solution Auto-injector every 30 days. 2 Active Ozempic, 0.25 or 0.5 MG/DOSE, 2 MG/1.5ML Solution Pen-injector 0.5 mg by Subcutaneous route once a week. 2 Active zolpidem (AMBIEN) 10 MG Tablet Take 10 mg by mouth nightly. 2 Active Farxiga 5 MG Tablet Take 5 mg by mouth daily. 2 Active QUEtiapine (SEROquel) 100 MG Tablet Take 100 mg by mouth daily. 2 Active Active Problems No known active problems Family History Medical History Relation Name Comments Chronic Obstructive Pulmonary Disease Brother Heart Disease Brother Chronic Obstructive Pulmonary Disease Father Heart Disease Father Cancer Mother Chronic Obstructive Pulmonary Disease Sister 1 Cancer Sister 2 Chronic Obstructive Pulmonary Disease Sister 2 Heart Disease Sister 3 Relation Name Status Comments Brother Father Mother Sister 1 Sister 2 Sister 3 Social History Tobacco Use Types Packs/Day Years [...] on file Legal Sex Female 9:51 AM REGULATORY AFFAIRS ANALYST Gender Identity Not on file Sexual Orientation Not on file Last Filed Vital Signs Vital Sign Reading Time Taken Comments Blood Pressure 158/90 04/12/2022 12:31 PM REGULATORY AFFAIRS ANALYST Pulse 114 04/12/2022 12:31 PM REGULATORY AFFAIRS ANALYST Temperature 36.5 ??C (97.7 ??F) 04/12/2022 1 2:31 PM REGULATORY AFFAIRS ANALYST Respiratory Rate 16 04/12/2022 12:3 1 PM REGULATORY AFFAIRS ANALYST Oxygen Saturation 95% 04/12/2022 12: 31 PM REGULATORY AFFAIRS ANALYST Inhaled Oxygen Concentration - - Weight 114.5 kg (252 lb 6.4 oz) 022 12:31 PM REGULATORY AFFAIRS ANALYST Height 172.7 cm (5' 8 ) 04/12/2022 12:3 1 PM REGULATORY AFFAIRS ANALYST Body Mass Index 38.38 04/12/2022 12:31 PM REGULATORY AFFAIRS ANALYST Plan of Treatment Health Maintenance Due Date Last Done Comments DEXA Bone Density 1955 Hepatitis C Virus (HCV) Screening 1955 TdaP Immunization 1955 Colonoscopy 2002 Colorectal Cancer Screening 2002 Cologuard 2007 Immunochemical Fecal Occult Blood 2007 Mammogram 2007 Respiratory Syncytial Virus (RSV) Immunization (Adult) (1 - Risk 60-74 years 1-dose series) 2017 Influenza Immunization (#1) 01/05/202409/2021, 02/08/2021, 02/16/2020, Additional history exists SARS-COV-2 Immunization ( season) 2024 02/07/2022, 04/03/2021, 08/15/2020, Additional history exists Pneumococcal Immunization (50+ years) (3 of 3 - PCV20 or PCV21) 04/03/2026 04/03/2021, 08/13/2006 Zoster Immunization Completed 04/30/2019, 9 Hepatitis B Immunization Aged Out No longer eligible based on patient's age to complete this topic Meningococcal Immunization (ACWY) Aged Out No longer eligible based on patient's age to complete this topic Rotavirus Immunization Aged Out No lo nger eligible based on patient's age to complete this topic Insurance [place]ICAID [place] Care Teams Cardiac Catheterization Technologist Relationship Specialty Start Date End Date Jacki Cabrera MD [address] [place] [address] PCP - General Internal Medicine 04/12/22
--- OUTSIDE RECORDS SUMMARY | 2024-05-11 12:20 | XMS_ITS | Encounter Summary ---
Author Organization [facility] Address [address] [place] [address] Care Team Providers Care Inventory Associate Name Role Phone Jacki Cabrera MD Primary Care Provider Encounter Details Date Type Department Care Team (Late st Contact Info) Description 05/07/2023 External Device Data STL ABSTRACTION Provider, Abstract [...] st Contact Info) Description 05/13/2024 9:15 AM AIRCRAFT CLEANING SUPERVISOR Office Visit [facility] Oncology and Hematology - [place] [address] [place] [address] [facility] [address] [place] [address] [place] [address] [place] [address] [address] [place] [address] documented as of this encounter Visit Diagnoses Not on filedocumented in this encounter Care Teams Inventory Associate Relationship Specialty Start Date End Date Jacki Cabrera MD PCP - General Internal Medicine 01/06/19 documented as of this encounter
--- OUTSIDE RECORDS SUMMARY | 2024-05-11 12:20 | XMS_ITS | Encounter Summary ---
Author Organization [facility] [employer] [facility] Address [address] [place] [address] Care Team Providers Care Lamp Assembler Name Role Phone Jacki Cabrera MD Primary Care Provider Encounter Details Date Type Department Care Team ([facility] Contact Info) Description 04/08/2023 Orders Only [facility] Oncology and Hematology [place] [address] [place] [address] Venkatesh Bolanos MD [address] [place], [place] [address] [address] [place] [address] Social History Tobacco Use Types Packs/Day [...] Upcoming Encounters Date Type Department Care Team ([facility] Contact Info) Description 05/13/2024 9:15 AM PLANNER Office Visit [facility] Oncology and Hematology - [place] [address] [place] [address] Venkatesh Bolanos MD [facility] [employer] [address] [place] [address] documented as of this encounter Procedures Procedure Name Priority Date/Time Associated Diagnosis Comments CHG BLOOD SMEAR PATH REVIEW Routine 04/04/2023 9:47 AM PLANNER documented in this encounter Results * CHG BLOOD SMEAR PATH REVIEW (04/04/2023 9:47 AM PLANNER) Venkatesh Bolanos MD [facility] - LABORATORY documented in this encounter Visit Diagnoses Not on filedocumented in this encounter Care Teams Lamp Assembler Relationship Specialty Start Date End Date Jakci Cabrera MD PCP - General Internal Medicine 01/06/19 documented as of this encounter
--- OUTSIDE RECORDS SUMMARY | 2024-05-11 12:20 | XMS_ITS | Encounter Summary ---
Author Organization [facility] Address [address] [place] [address] Care Team Providers Care Sap Pp Consultant Name Role Phone Jacki Cabrera MD Primary Care Provider Reason for Referral * Eval and Treat (Routine) - Closed Specialty Diagnoses / Procedures Referred By Calvin bentley Referred To Contact Surgery Diagnoses Follicular lymphoma, unspecified follicular lymphoma type, unspecified body region Procedures NM OFFICE/OUTPATIENT ESTABLISHED MOD MDM 30 MIN NM OFFICE/OUTPATIENT NEW MODERATE MDM 45 MINUTES Venkatesh Bolanos MD [facility] [employer] [address] [place], [place] [address] Juvenal Levine, [address] [place] [address] [address] [facility] [address] [place] [address] Referral ID Status Reason Start Date Expiration Date V isits Requested Visits Authorized [id number] Closed [facility] CTS 05/13/2023 05/12/2024 1 1 LOADER * Eval and Treat (Routine) - Closed Specialty Diagnoses / Procedures Referred By Calvin bentley Referred To Contact Oncology Diagnoses Follicular lymphoma, unspecified follicular lymphoma type, unspecified body region Procedures NM OFFICE/OUTPATIENT ESTABLISHED MOD MDM 30 MIN NM OFFICE/OUTPATIENT NEW MODERATE MDM 45 MINUTES Venkatesh Bolanos MD [address] [employer] [address] [place] [address] Referral ID Status Reason Start Date Expiration Date V isits Requested Visits Authorized [id number] Closed [facility] CTS 05/13/2023 05/13/2024 1 1 LOADER Reason for Visit * Reason Comments Follow Up Encounter Details Date Type Department Care Team (Late st Contact Info) Description 05/13/2023 2:00 PM CORE LOADER Office Visit [facility] Oncology and Hematology - [place] [address] [facility] [address] [place] [address] Venkatesh Bolanos MD [address] [facility] [address] [place] [address] Follicular lymphoma, unspecified follicular lymphoma [...] Sign Reading Time Taken Comments Blood Pressure 163/101 05/13/2023 1:43 PM CORE LOADER Pulse 100 05/13/2023 1:40 PM CORE LOADER Temperature 35.6 ??C (96 ??F) 05/13/2023 1:40 PM CORE LOADER Respiratory Rate 12 05/13/2023 1:40 PM CORE LOADER Oxygen Saturation 96% 05/13/2023 1:40 PM CORE LOADER Inhaled Oxygen Concentration - - Weight 103 kg (227 lb) 05/13/2023 1:40 PM CORE LOADER Height - - Body Mass Index 34.52 04/02/2023 1:37 PM CORE LOADER documented in this encounter Progress Notes * Venkatesh Bolanos MD - 05/13/2023 3:42 PM CST HEMATOLOGY / ONCOLOGY PROGRESS NOTE Patient Identification: Name: Karolina Ramos Age: 68 y.o. Sex: female : 1955 DIAGNOSIS Follicular lymphoma stage III disease status post left axillary lymph node biopsy done on April 26, 2023 CURRENT TREATMENT Expectant TREATMENT HISTORY SUBJECTIVE Patient came to the office for follow-up visit after the lymph node biopsy was performed. She denies any night sweats fever chills and weight loss. Denies any new lumps bumps or lymphadenopathy. No other new complaints. Review of system Constitutional: Patient did not mention fevers, sweats, fatigue, malaise, weight loss HEENT: Patient did not mention sinus congestion, hearing or vision problems Respiratory: Patient did not mention cough, dyspnea, wheeze Cardiovascular: Patient did not mention chest pain, exertional chest pressure/discomfort, nausea, syncope, shortness of breath GI: Patient did not mention constipation, diarrhea, dsyphagia, reflux symptoms, vomiting, melena : Patient did not mention dysuria, frequency, [...] 14 platelet 240,000 neutrophils 68% lymphocyte 21% @IMAGEIMP@ Assessment: Plan: Patient Active Problem List Diagnosis [...] cytometric analysis showed no evidence of lymphoma. I have discussed the diagnosis of follicular lymphoma with the patient. I will recommend chemotherapy with Bendamustine and Rituxan. I have discussed the side effects of chemotherapy in detail. Will refer her for port placement as well as chemotherapy teaching. I have answered all the questions to patient satisfaction. Elevated calcium and protein. Serum protein electrophoresis showed no M spike. IgM was slightly elevated at 258 kappa light chain was 51.6 and the lambda light chain was 46.3 with normal ratio. Type 2 diabetes. Continue Ozempic. Peripheral neuropathy. Stable on gabapentin. Psoriatic arthritis. Patient is on methotrexate and prednisone. Patient will start chemotherapy neck 7 to 10 days. Follow-up with me in 4 to 5 weeks with cycle 2 of chemotherapy. TOBACCO COUNSELING She was counseled to discontinue tobacco/nicotine use. 05/13/2023 Venkatesh Bolanos MD LOADER documented in this encounter Plan of Treatment Upcoming Encounters Date Type Department Care Team (Late st Contact Info) Description 05/13/2024 9:15 AM CORE LOADER Office Visit [facility] Oncology and Hematology - [place] [address] [place] [address] [address] Venkatesh Bolanos MD [address] [facility] [address] [place] [address] Scheduled Referrals Name Type Priority Associated Diagnoses Orde r Schedule AMB REFERRAL TO CHEMO TEACHING Outpatient Referral Routine Follicular lymphoma, unspecified follicular lymphoma type, unspecified body region Ordered: 05/13/2023 AMB REFERRAL TO COLORECTAL SURGERY Outpatient Referral Routine Follicular lymphoma, unspecified follicular lymphoma type, unspecified body region Ordered: 05/13/2023 documented as of this encounter Visit Diagnoses Diagnosis Follicular lymphoma, unspecified follicular lymphoma type, unspecified body region- Primary documented in this encounter Care Teams Sap Pp Consultant Relationship Specialty Start Date End Date Jacki Cabrera MD PCP - General Internal Medicine 01/06/19 documented as of this encounter
--- OUTSIDE RECORDS SUMMARY | 2024-05-11 12:20 | XMS_ITS | Encounter Summary ---
Author Organization [facility] [employer] [facility] Address [address] [place] [address] Care Team Providers Care Copy Chaser Name Role Phone Jacki Cabrera MD Primary Care Provider Encounter Details Date Type Department Care Team ([facility] Contact Info) Description 04/18/2023 Abstract [facility] Oncology and Hematology - [place] [address] [place] [address] Vnekatesh Bolanos MD [address] [place], [place] [address] [facility] [address] [place] [address] Social History Tobacco Use Types Packs/Day [...] Upcoming Encounters Date Type Department Care Team ([facility] Contact Info) Description 05/13/2024 9:15 AM GAS MAIN AND LINE FITTER Office Visit [facility] Oncology and Hematology - [place] [address] [place] [address] Venkatesh Bolanos MD [address] [place], [place] [address] [address] [place] [address] documented as of this encounter Visit Diagnoses Not on filedocumented in this encounter Care Teams Copy Chaser Relationship Specialty Start Date End Date Jacki Cabrera MD PCP - General Internal Medicine 01/06/19 documented as of this encounter
--- OUTSIDE RECORDS SUMMARY | 2024-05-11 12:20 | XMS_ITS | Encounter Summary ---
Author Organization [facility]3] [facility] Address [address] [place] [address] Care Team Providers Care Twister Tender Paper Name Role Phone Jacki Cabrera MD Primary Care Provider Encounter Details Date Type Department Care Team ([facility] Contact Info) Description 04/03/2023 Orders Only [facility] Oncology and Hematology [place] [address] [place] [address] Venkatesh oBlanos MD [address] [place] [address] [employer] [address] [place] [address] Social History Tobacco Use Types Packs/Day [...] Upcoming Encounters Date Type Department Care Team ([facility] Contact Info) Description 05/13/2024 9:15 AM CROCODILE FARMER Office Visit [facility] Oncology and Hematology - [place] [address] [place] [address] Venkatesh Bolanos MD [address] [place] [address] [employer] [address] [place] [address] documented as of this encounter Procedures Procedure Name Priority Date/Time Associated Diagnosis Comments CBC WITH DIFFERENTIAL Routine 04/02/2023 10:57 AM CROCODILE FARMER COMPREHENSIVE METABOLIC PANEL Routine 04/02/2023 10:39 AM CROCODILE FARMER documented in this encounter Results * CBC WITH DIFFERENTIAL (04/02/2023 10:57 AM CROCODILE FARMER) Blood Venkatesh Bolanos MD HEMATOLOGY ORDERABLE S * COMPREHENSIVE METABOLIC PANEL (04/02/2023 10:39 AM CROCODILE FARMER) Blood Venkatesh Bolanos MD CHEMISTRY ORDERABLES documented in this encounter Visit Diagnoses Not on filedocumented in this encounter Care Teams Twister Tender Paper Relationship Specialty Start Date End Date Jacki Cabrera MD PCP - General Internal Medicine 01/06/19 documented as of this encounter
--- OUTSIDE RECORDS SUMMARY | 2024-05-11 12:20 | XMS_ITS | Encounter Summary ---
Author Organization [facility] Address [address] [place] [address] Care Team Providers Care Lobby Porter Name Role Phone Jacki Cabrera MD Primary Care Provider Encounter Details Date Type Department Care Team ([facility] Contact Info) Description 06/18/2023 Orders Only [facility] [address] [place] [address] Venkatesh Bolanos MD [facility] [employer] [address] [place] [address] Follicular lymphoma, unspecified follicular lymphoma type, [...] Upcoming Encounters Date Type Department Care Team ([facility] Contact Info) Description 05/13/2024 9:15 AM DEPUTY GENERAL COUNSEL Office Visit [facility] [address] [place] [address] Venkatesh Bolanos MD [facility] [employer] [address] [place] [address] documented as of this encounter Visit Diagnoses Diagnosis Follicular lymphoma, unspecified follicular lymphoma type, unspecified body region- Primary documented in this encounter Care Teams Lobby Porter Relationship Specialty Start Date End Date Jacki Cabrera MD PCP - General Internal Medicine 01/06/19 documented as of this encounter
--- OUTSIDE RECORDS SUMMARY | 2024-05-11 12:20 | XMS_ITS | Encounter Summary ---
Author Organization [facility] Address [address] [place] [address] Care Team Providers Care Big Data Engineer Name Role Phone Jacki Cabrera MD Primary Care Provider Reason for Visit * Reason Comments Establish Care Right Ankle * Eval and Treat (Routine) - Closed Specialty Diagnoses / Procedures Referred By Contac t Referred To Contact Orthopedic Surgery Diagnoses Pain, unspecified Rt ankle pain. Patient had ankle fusion 1 1/2 years ago. Procedures OFFICE VISIT NEW PATIENT [facility], External Provider [address] [place] [place] [address] [place] [address] [place] [address] [place] [phone] Referral ID Status Reason Start Date Expiration Date Visits Re quested Visits Authorized [id number] Closed 01/06/2019 05/05/2019 99 99 Encounter Details Date Type Department Care Team (Late st Contact Info) Description 01/06/2019 12:30 PM CDT Office Visit [facility] Orthopedic Surgery - [address] [place] [phone] [place] [address] [place] [phone] Right ankle pain, unspecified chronicity (Primary Dx); Tobacco use Social History Tobacco Use Types Packs/Day Years Used Date Smoking Tobacco: Every Day Cigarettes Smokeless Tobacco: Never Sex and Gender Information Value Date Recorded Sex Assigned at Not on file Gender Identity Not on file Sexual Orientation Not on file documented as of this encounter Last Filed Vital Signs Vital Sign Reading Time Taken Comments Blood Pressure 136/78 01/06/2019 12:27 PM CDT Pulse - - Temperature - - Respiratory Rate - - Oxygen Saturation - - Inhaled Oxygen Concentration - - Weight 118.2 kg (260 lb 9.6 oz) 019 12:27 PM CDT Height 172.7 cm (5' 8 ) 01/06/2019 12:2 7 PM CDT Body Mass Index 39.62 01/06/2019 12:27 PM CDT documented in this encounter Progress Notes * Wesley Ball MD - 01/06/2019 12:47 PM CDT Date: 01/06/19 Name: Karolina Ramos Date: CSN: [id number] Chief Complaint: right ankle pain HPI: Karolina Ramos is a 63 y.o. female presenting to establish care for right ankle pain. Her ankle problems began several years ago after she stepped in a hole and twisted the ankle. She underwent a triple arthrodesis in 2015. On 01/02/2017, she had a right ankle fusion with Dr. Quintana in [place], [place]. This operation did little to help her pain and swelling. She states that she is hardly able to walk on the right ankle. She has been seeing pain management and is on xtampza ER (oxycodone myristate) as needed for pain. Her pain is significantly impacting her activities of daily living. She has a history of bilateral TKA. She's reports multiple revision surgeries on the right, now hasa hinged knee replacement on the right, and is still not completely satisfied with this. She is a smoker. She underwent gastric bypass surgery several years ago and has lost approximately 100 lbs. Her weight loss has tapered off. She continues to smoke. She is no longer diabetic. We received medical records from [place], with portions of the record redacted. Past Medical History: Past Medical History: Diagnosis Date ??? Anxiety and depression ??? HTN (hypertension) ??? Stomach ulcer reflex Past Surgical History: No past surgical history on file. Current Medications: Current Outpatient Medications: ??? DULoxetine (CYMBALTA) 60 mg Capsule, Delayed Release(E.C.), Take 60 mg by mouth., Disp: , Rfl: ??? gabapentin (NEURONTIN) 600 mg tablet, 600 mg., Disp: , Rfl: ??? omeprazole (PriLOSEC) 20 mg Capsule, Delayed Release(E.C.), 20 mg., Disp: , Rfl: ??? folic acid (FOLVITE) 1 mg tablet, Take 1 mg by mouth., Disp: , Rfl: ??? predniSONE (DELTASONE) 5 mg tablet, 5 mg., Disp: , Rfl: ??? lisinopril-hydroCHLOROthiazide (ZESTORETIC) 20-25 mg tablet, 1 Tablet., Disp: , Rfl: ??? calcium-cholecalciferol (OYSTER SHELL CALCIUM-VIT D3) 500 mg(1,250mg) -200 unit tablet, Take 500 mg by mouth., Disp: , Rfl: ??? ergocalciferol (VITAMIN D2) 2,000 unit Tablet tablet, Take 50,000 Units by mouth every 7 days.,Disp: , Rfl: ??? methotrexate (RHEUMATREX) 2.5 mg Tablet, Take 2.5 mg by mouth every 7 days., Disp: , Rfl: ??? traZODone (DESYREL) 100 mg tablet, 200 mg., Disp: , Rfl: ??? busPIRone (BUSPAR) 10 mg tablet, Take 10 mg by mouth., Disp: , Rfl: ??? glipiZIDE (GLUCOTROL XL) 2.5 mg Extended Release 24 hour tablet, 2.5 mg., Disp: , Rfl: ??? brexpiprazole (REXULTI) 0.5 mg Tablet, Take 0.5 mg by mouth., Disp: , Rfl: ??? lovastatin (MEVACOR) 20 mg tablet, Take 20 mg by mouth., Disp: , Rfl: ??? oxyCODONE myristate (XTAMPZA ER) 13.5 mg capsule,sprinkle,ER 12hr tmprr, 18 mg., Disp: , Rfl: ??? HYDROcodone-acetaminophen (HYCET) 7.5-325 mg/15 mL Solution, 15 mL., Disp: , Rfl: ??? baclofen (LIORESAL) 10 mg tablet, Take 10 mg by mouth., Disp: , Rfl: ??? fenofibrate nanocrystallized (TRICOR) 48 mg tablet, Take 48 mg by mouth daily., Disp: , Rfl: ??? cloNIDine HCl (CATAPRES) 0.1 mg tablet, Take 0.1 mg by mouth 3 times daily., Disp: , Rfl: Allergies: Allergies Allergen Reactions ??? Penicillins Rash and Shortness of Breath/Wheezing Family History: Family History Problem Relation Name Age of Onset ??? Diabetes Mother ??? Heart Disease Mother ??? Arthritis-osteo Mother ??? Hypertension Mother ??? Diabetes Father ??? Heart Disease Father ??? Arthritis-osteo Father ??? Hypertension Father ??? Heart Disease Sister ??? Arthritis-osteo Sister ??? Heart Disease Brother ??? Arthritis-osteo Brother Social History: Social History Socioeconomic History ??? Marital status: Spouse name: Not on file ??? Number of children: Not on file ??? Years of education: Not on file ??? Highest education level: Not on file Occupational History ??? Not on file Social Needs ??? Financial resource strain: Not on file ??? Food insecurity: Worry: Not on file Inability: Not on file ??? Transportation needs: Medical: Not on file Non-medical: Not on file Tobacco Use ??? Smoking status: Current Every Day Smoker Packs/day: 0.50 ??? Smokeless tobacco: Never Used Substance and Sexual Activity ??? Alcohol use: Not on file ??? Drug use: Not on file ??? Sexual activity: Not on file Lifestyle ??? Physical activity: Days per week: Not on file Minutes per session: Not on file ??? Stress: Not on file Relationships ??? Social connections: Talks on phone: Not on file Gets together: Not on file Attends judaism service: Not on file Active member of club or organization: Not on file Attends meetings of clubs or organizations: Not on file Relationship status: Not on file ??? Intimate partner violence: Fear of current or ex partner: Not on file Emotionally abused: Not on file Physically abused: Not on file Forced sexual activity: Not on file Other Topics Concern ??? Not on file Social History Narrative ??? Not on file Review of Systems: - History obtained from chart review and the patient. See HPI for pertinent positives. The patient denies any recent history of weakness, bleeding, anxiety, depression, rashes, skin lesions, changes in vision, earaches, hearing loss, cough, shortness of breath, burning on urination, urinary frequency, chest pain, palpitations, heartburn, nausea, rectal bleeding, headaches, dizziness or other significant systemic complaints. Physical Examination: BP 136/78 (BP Location: Right arm, Patient Position (BP): Sitting, BP Cuff Size: Large Adult) Ht 5' 8 (1.727 m) Wt 118.2 kg (260 lb 9.6 oz) LMP (LMP Unknown) ? No BMI 39.62 kg/m?? General: Awake, alert, oriented x3 HEENT: normocephalic/atraumatic Cardiovascular: Regular rate/rhythm Lungs: Respirations even and unlabored Abdomen: Soft and nontender Right Ankle: She has a severe external rotation deformity of the right foot with valgus alignment of her right ankle. She walks with a definite limp. She complains of diffuse pain around her ankle and foot, and has difficulty localizing this to a particular place. There is no erythema or gross false motion. Good forefoot mobility with pain No false motion at the ankle or subtalar joint Mild diffuse swelling Normal toe alignment Intact posterior tibial and dorsalis pedis pulses. Intact neurovascular status. Radiographic Imaging: Today in the office we took 3 views of the right ankle. Radiographic Impression: Radiographic findings show 6 screws across the ankle. There is 1 broken screw in the syndesmosis and 1 broken screw in the foot. There is good fusion of the subtalar joint, but the ankle joint line is still visible. Assessment: ICD-10-CM ICD-9-CM 1. Right ankle pain, unspecified chronicity M25.571 719.47 XR ANKLE 3+ VW RIGHT CT ANKLE WO CONTRAST RIGHT 2. Tobacco use Z72.0 305.1 She may have pain from ankle nonunion of her arthrodesis, though there is no sign of hardware failure at this time. She may have chronic neuropathic or referred pain as well. She is at high risk for any further procedure given her obesity, possible diabetes, smoking, and multiple prior surgeries. In addition, chronic narcotic use means she is unlikely to have excellent pain relief postoperatively. PLAN: Treatment options were discussed. She was informed that her pain and alignment might be separate issues. I will order an CT of the right to rule out nonunion of ankle fusion. I will call the patient with their CT results. She is going to work on getting her old x-rays from [place]. She isnot a good surgical candidate at this time. We discussed the importance of smoking cessation and weight reduction. She was encouraged to stay active, and she could do nonweightbearing exercise such as cycling or swimming. The patient understands and agrees with the plan. All questions and concerns are addressed at this time. TOBACCO COUNSELING She was counseled to discontinue tobacco use. Normal BMI Range: 18 & older: > or = 18.5 and < 25 Body mass index is 39.62 kg/m??. Abnormal high BMI: Patient counseled on lifestyle modifications including weight loss and daily exercise. This note has been prepared by Becky Veras, Ironing Pleater, for Dr. Ball on 01/06/19 1:41 PM. The scribe's documentation has been prepared under Dr. Ball's direction and personally reviewed by him in its entirety. Dr. Ball confirms that the note above accurately reflects all work, treatment, procedures, and medical decision making performed by him during this encounter. This is provenby his action to authorize the note and sign/close the encounter. documented in this encounter Plan of Treatment Upcoming Encounters Date Type Department Care Team (Late st Contact Info) Description 05/13/2024 9:15 AM ENTERPRISE ACCOUNT MANAGER Office Visit [facility] Oncology and Hematology - [address] [facility] [address] [place] [address] Venkatesh Bolanos MD [address] [facility] [address] [place] [address] documented as of this encounter Results * XR ANKLE 3+ [...] Visit Diagnoses Diagnosis Right ankle pain, unspecified chronicity- Primary Tobacco use Tobacco use disorder Right ankle pain, unspecified chronicity documented in this encounter Care Teams Big Data Engineer Relationship Specialty Start Date End Date Jacki Cabrera MD PCP - General Internal Medicine 01/06/19 documented as of this encounter
--- OUTSIDE RECORDS SUMMARY | 2024-05-11 12:20 | XMS_ITS | Encounter Summary ---
Author Organization [facility] [employer] [facility] Address [address] [place] [address] Care Team Providers Care Heating Systems Installer Name Role Phone Jacki Cabrera MD Primary Care Provider Encounter Details Date Type Department Care Team ([facility] Contact Info) Description 04/22/2023 Orders Only [facility] Oncology and Hematology [address] [place] [address] Venkatesh Bolanos MD [address] [place] [address] [employer] [address] [place] [phone] Social History Tobacco Use Types Packs/Day [...] Upcoming Encounters Date Type Department Care Team ([facility] Contact Info) Description 05/13/2024 9:15 AM HEALTH AND WELLNESS DIRECTOR Office Visit [facility] Oncology and Hematology - [address] [place] [address] Venkatesh Bolanos MD [address] [place], [place] [address] [address] [place] [phone] documented as of this encounter Procedures Procedure Name Priority Date/Time Associated Diagnosis Comments PROTEIN TOTAL Routine 04/17/2023 3:40 PM HEALTH AND WELLNESS DIRECTOR KAPPA/LAMBDA LIGHT CHAINS Routine 04/17/2023 3:37 PM HEALTH AND WELLNESS DIRECTOR documented in this encounter Results * PROTEIN TOTAL (04/17/2023 3:40 PM HEALTH AND WELLNESS DIRECTOR) Blood Venkatesh Bolanos MD CHEMISTRY ORDERABLES * KAPPA/LAMBDA, FREE LIGHT CHAINS (04/17/2023 3:37 PM HEALTH AND WELLNESS DIRECTOR) Blood Venkatesh Bolanos MD CHEMISTRY ORDERABLES documented in this encounter Visit Diagnoses Not on filedocumented in this encounter Care Teams Heating Systems Installer Relationship Specialty Start Date End Date Jacki Cabrera MD PCP - General Internal Medicine 01/06/19 documented as of this encounter
--- OUTSIDE RECORDS SUMMARY | 2024-05-11 12:20 | XMS_ITS | Encounter Summary ---
Author Organization [facility] [employer] [facility] Address [address] [place] [address] Care Team Providers Care Pallet Stone Positioner Name Role Phone Jacki Cabrera MD Primary Care Provider Encounter Details Date Type Department Care Team ([facility] Contact Info) Description 05/02/[address] [facility] Oncology and Hematology [address] [place] [address] Venkatesh Bolanos MD [address] [place], [place] [address] [address] [place] [phone] Social History Tobacco Use Types Packs/Day [...] Encounters Date Type Department Care Team ([facility] Contact Info) Description 05/13/2024 9:15 AM BARREL CUTTER Office Visit [facility] Oncology and Hematology - [address] [place] [address] Venkatesh Bolanos MD [address] [place], [place] [email or web address] [address] [place] [phone] documented as of this encounter Procedures Procedure Name Priority Date/Time Associated Diagnosis Comments PATHOLOGY Routine 04/26/2023 2:12 PM BARREL CUTTER documented in this encounter Results * PATHOLOGY (04/26/2023 2:12 PM BARREL CUTTER) Tissue Venkatesh Bolanos MD PATHOLOGY/CYTOLOGY O SHANNONERAVERENA documented in this encounter Visit Diagnoses Not on filedocumented in this encounter Care Teams Pallet Stone Positioner Relationship Specialty Start Date End Date Jacki Cabrera MD PCP - General Internal Medicine 01/06/19 documented as of this encounter
--- OUTSIDE RECORDS SUMMARY | 2024-05-11 12:20 | XMS_ITS | Encounter Summary ---
Author Organization [facility] Address [address] [place] [address] Care Team Providers Care Patternmaker Bench Name Role Phone Jacki Cabrera MD Primary Care Provider Encounter Details Date Type Department Care Team (Late st Contact Info) Description 06/24/2023 External Device Data STL ABSTRACTION Provider, Abstract [...] st Contact Info) Description 05/13/2024 9:15 AM TEST CASE DEVELOPER Office Visit [facility] Oncology and Hematology - [place] [address] [place] [address] [facility] [address] [place] [address] [place] [address] [place] [address] [address] [place] [address] documented as of this encounter Visit Diagnoses Not on filedocumented in this encounter Care Teams Patternmaker Bench Relationship Specialty Start Date End Date Jacki Cabrera MD PCP - General Internal Medicine 01/06/19 documented as of this encounter
--- OUTSIDE RECORDS SUMMARY | 2024-05-11 12:20 | XMS_ITS | Encounter Summary ---
Author Organization [facility] [employer] [facility] Address [address] [place] [address] Care Team Providers Care Mail Manager Name Role Phone Jacki Cabrera MD Primary Care Provider Reason for Visit * Reason Comments Follow Up Encounter Details Date Type Department Care Team ([facility] st Contact Info) Description 04/17/2023 2:30 PM NEGATIVE CLEANER Office Visit [facility] Oncology and Hematology - [address] [facility] [address] [place] [address] Venkatesh Bolanos MD [address] [facility] [address] [place] [address] Elevated blood protein (Primary Dx); Lymphadenopathy Social History Tobacco Use Types Packs/Day Years [...] Sign Reading Time Taken Comments Blood Pressure 149/102 04/17/2023 2:08 PM NEGATIVE CLEANER Pulse 119 04/17/2023 2:05 PM NEGATIVE CLEANER Temperature 36.3 ??C (97.3 ??F) 04/17/2023 2:05 PM CS T Respiratory Rate 18 04/17/2023 2:05 PM NEGATIVE CLEANER Oxygen Saturation 98% 04/17/2023 2:05 PM NEGATIVE CLEANER Inhaled Oxygen Concentration - - Weight 102.8 kg (226 lb 9.6 oz) 04/17/2023 2:05 PM NEGATIVE CLEANER Height - - Body Mass Index 34.45 04/02/2023 1:37 PM NEGATIVE CLEANER documented in this encounter Progress Notes * Venkatesh Bolanos MD - 04/17/2023 3:03 PM CST HEMATOLOGY / ONCOLOGY PROGRESS NOTE Patient Identification: Name: Karolina Ramos Age: 68 y.o. Sex: female : 1955 DIAGNOSIS Generalized lymphadenopathy CURRENT TREATMENT Expectant TREATMENT HISTORY SUBJECTIVE Patient came to the office for follow-up visit after the labs were done due to generalized lymphadenopathy. She denies any night sweats fevers and chills. Denies any weight loss. No abdominal pain and chest pain. No other new complaints. Review of system [...] dizziness Skin: No lumps, bumps or rashes. Objective: Vital signs in last 24 hours: [...] No lymphadenopathy Neuro: No obvious focal deficit PATH LABS Labs from April 02 showed calcium 11.1 protein 9.0 alkaline phosphatase 239 creatinine 0.7 WBC 11.1 hemoglobin 14 platelet 240,000 neutrophils 68% lymphocyte 21% @IMAGEIMP@ Assessment: Plan: Patient Active Problem List Diagnosis Date Noted Tobacco use 01/06/2019 Generalized lymphadenopathy. PET scan done on March 14 showed hypermetabolic lymphadenopathy in the left axilla, mesentery and right external iliac chain. These findings are worrisome for lymphoproliferative disorder. Peripheral smear review showed finding consistent with reactive process and flow cytometric analysis showed no evidence of lymphoma. There was slight relative increase of CD4 and CD57 T cells. I will order ultrasound-guided biopsy of the left axilla lymph node. She will bring the CD of the PET scan with her prior to the biopsy done by the radiologist. Elevated calcium and protein. Will order serum protein electrophoresis with immunofixation and quantitative immunoglobulin and serum free light chain studies today. Type 2 diabetes. She is on Ozempic. Hypertension. She is on Zestril. Peripheral neuropathy. She is on gabapentin. Psoriatic arthritis. She is on methotrexate and prednisone. Follow-up in 3 weeks after the lymph node biopsy ? TOBACCO COUNSELING She was counseled to discontinue tobacco/nicotine use. 04/17/2023 Venkatesh Bolanos MD TIVE CLEANER documented in this encounter Plan of Treatment Upcoming Encounters Date Type Department Care Team (Late st Contact Info) Description 05/13/2024 9:15 AM NEGATIVE CLEANER Office Visit [facility] Oncology and Hematology - [address] [facility] [address] [place] [address] Venkatesh Bolanos MD [address] [facility] [address] [place] [address] Scheduled Orders Name Type Priority Associated Diagnoses Orde r Schedule BIOPSY Procedures Routine Lymphadenopathy Ordered: 04/17/2023 documented as of this encounter Visit Diagnoses Diagnosis Elevated blood protein- Primary Other disorders of plasma protein metabolism Lymphadenopathy Enlargement of lymph nodes documented in this encounter Care Teams Mail Manager Relationship Specialty Start Date End Date Jacki Cabrera MD PCP - General Internal Medicine 01/06/19 documented as of this encounter
--- OUTSIDE RECORDS SUMMARY | 2024-05-11 12:20 | XMS_ITS | Encounter Summary ---
Author Organization [facility] [employer] [facility] Address [address] [place] [address] Care Team Providers Care Instructional Services Specialist Name Role Phone Jacki Cabrera MD Primary Care Provider Encounter Details Date Type Department Care Team ([facility] Contact Info) Description 06/20/2023 Orders Only [facility] Oncology [facility], [facility] Hematology [facility] [address] [place] [address] Venkatesh Bolanos MD [facility] [address] [place] [phone] Follicular lymphoma, unspecified follicular lymphoma type, [...] Upcoming Encounters Date Type Department Care Team ([facility] Contact Info) Description 05/13/2024 9:15 AM DUTY ENGINEER Office Visit [facility] Oncology [facility] Hematology [facility] [address] [place] [address] Venkatesh Bolanos MD [facility] [address] [place] [phone] Scheduled Orders Name Type Priority Associated Diagnoses Orde r Schedule CBC WITH DIFFERENTIAL Lab Routine Follicular lymphoma, unspecified follicular lymphoma type, unspecified body region Every Two Weeks for 99 Occurrences starting 06/20/2023 until 06/20/2024 COMPREHENSIVE METABOLIC PANEL Lab Routine Follicular lymphoma, unspecified follicular lymphoma type, unspecified body region Every Two Weeks for 99 Occurrences starting 06/20/2023 until 06/20/2024 BASIC METABOLIC PANEL Lab Routine Follicular lymphoma, unspecified follicular lymphoma type, unspecified body region Every Two Weeks for 99 Occurrences starting 06/20/2023 until 06/20/2024 documented as of this encounter Visit Diagnoses Diagnosis Follicular lymphoma, unspecified follicular lymphoma type, unspecified body region- Primary documented in this encounter Care Teams Instructional Services Specialist Relationship Specialty Start Date End Date Jacki Cabrera MD PCP - General Internal Medicine 01/06/19 documented as of this encounter
--- OUTSIDE RECORDS SUMMARY | 2024-05-11 12:20 | XMS_ITS | Encounter Summary ---
Author Organization [facility] [employer] [facility] Address [address] [place] [address] Care Team Providers Care Firewood Cutter Name Role Phone Jacki Cabrera MD Primary Care Provider Encounter Details Date Type Department Care Team ([facility] Contact Info) Description 04/19/2023 Orders Only [facility] Oncology and Hematology - Yakov [address] [place] [address] Venkatesh Bolanos MD [address] [place] [address] [employer] [address] [place] [address] Social History Tobacco Use Types Packs/Day [...] Upcoming Encounters Date Type Department Care Team ([facility] Contact Info) Description 05/13/2024 9:15 AM SOCCER COACH Office Visit [facility] Oncology and Hematology - Yakov [address] [place] [address] Venkatesh Bolanos MD [address] [place] [address] [employer] [address] [place] [address] documented as of this encounter Procedures Procedure Name Priority Date/Time Associated Diagnosis Comments IMMUNOGLOBULINS IGG IGA IGM Routine 04/17/2023 10:56 AM SOCCER COACH documented in this encounter Results * IMMUNOGLOBULINS IGG IGA IGM (04/17/2023 10:56 AM SOCCER COACH) Blood Venkatesh Bolanos MD CHEMISTRY ORDERABLES documented in this encounter Visit Diagnoses Not on filedocumented in this encounter Care Teams Firewood Cutter Relationship Specialty Start Date End Date Jacki Cabrera MD PCP - General Internal Medicine 01/06/19 documented as of this encounter
--- OUTSIDE RECORDS SUMMARY | 2024-05-11 12:20 | XMS_ITS | Encounter Summary ---
Author Organization [facility] Address [address] [place] [address] Care Team Providers Care Cut To Length Operator Name Role Phone Jacki Cabrera MD Primary Care Provider Encounter Details Date Type Department Care Team (Late st Contact Info) Description 06/21/2023 External Device Data STL ABSTRACTION Provider, Abstract [...] st Contact Info) Description 05/13/2024 9:15 AM CHILLER OPERATOR Office Visit [facility] Oncology and Hematology - Yakov [address] [place] [address] [facility] [address] [place] [address] Venkatesh Bolanos MD [address] [facility] [address] [place] [address] documented as of this encounter Visit Diagnoses Not on filedocumented in this encounter Care Teams Cut To Length Operator Relationship Specialty Start Date End Date Jacki Cabrera MD PCP - General Internal Medicine 01/06/19 documented as of this encounter
--- OUTSIDE RECORDS SUMMARY | 2024-05-11 12:20 | XMS_ITS | Encounter Summary ---
Author Organization [facility] Address [address] [place] [address] Care Team Providers Care Security Assistant Name Role Phone Jacki Cabrera MD Primary Care Provider Reason for Visit * Reason Comments Establish Care Encounter Details Date Type Department Care Team (Late st Contact Info) Description 04/02/2023 1:30 PM GUARD MANAGER Office Visit [facility] Oncology and Hematology - Yakov [address] [place] [address] [address] [place] [address] Venkatesh Bolanos MD [address] [facility] [place] [address] Leukocytosis, unspecified type (Primary Dx) Social History Tobacco Use Types [...] Sign Reading Time Taken Comments Blood Pressure 142/102 04/02/2023 1:40 PM GUARD MANAGER Pulse 96 04/02/2023 1:37 PM GUARD MANAGER Temperature 36.2 ??C (97.2 ??F) 04/02/2023 1:37 PM CS T Respiratory Rate 18 04/02/2023 1:37 PM GUARD MANAGER Oxygen Saturation 99% 04/02/2023 1:37 PM GUARD MANAGER Inhaled Oxygen Concentration - - Weight 102.8 kg (226 lb 9.6 oz) 04/02/2023 1:37 PM GUARD MANAGER Height 172.7 cm (5' 8 ) 04/02/2023 1:37 PM GUARD MANAGER Body Mass Index 34.45 04/02/2023 1:37 PM GUARD MANAGER documented in this encounter Progress Notes * Venkatesh Bolanos MD - 04/02/2023 2:29 PM CST Hematology-oncology consult Note Requesting Physician Jacki Cabrera MD Primary Care Physician Jacki Cabrera MD Problem list Patient Active Problem List Diagnosis Code Tobacco use Z72.0 Previous TREATMENT ? Measurable Disease ? Reason for Visit Karolina Ramos is a 68 y.o. female who was referred for consultation for generalized lymphadenopathy. History of present illness This is a pleasant 68-year-old obese female with multiple comorbidities including type 2 diabetes, hyperlipidemia, hypertension, diabetic neuropathy, psoriatic arthritis and depression. Shewas evaluated by oncologist in April 2022 for leukocytosis and found to be reactive in nature. She went to the ER at [facility] in [place] with nausea vomiting and labs were done that came back abnormal. That prompted PET scan done on March 14, 2023 that showed hypermetabolic left axillary, mesenteric, right external iliac chain lymph node suspicious for malignancy possibility of lymphoma. Clinically she denies any night sweats fevers and chills. She has lost 30 pound weight in 1 year but she is also on Ozempic. She denies any new lung bumps or lymphadenopathy. She continues to smoke half to 1 pack/day for last 36 years duration. Denies any other new complaint. Past Medical History Past Medical History: Diagnosis Date Anxiety and depression Diabetes mellitus HTN (hypertension) Hyperlipidemia Stomach ulcer reflex Psoriatic arthritis Surgical History Past Surgical History: Procedure Laterality Date HX HYSTERECTOMY Medications Current Outpatient Medications Medication Sig Dispense Refill calcitRIOL (ROCALTROL) 0.25 mcg capsule Take 0.25 mcg by mouth daily. escitalopram oxalate (LEXAPRO) 20 mg tablet Take 20 mg by mouth daily. lisinopril-hydroCHLOROthiazide (ZESTORETIC) 20-25 mg tablet Take 1 Tablet by mouth daily. semaglutide (Ozempic) 0.25 mg or 0.5 mg(2 mg/1.5 mL) Pen Injector Inject 0.5 mg by subcutaneous injection every 7 days. sulfaSALAzine (AZULFIDINE) 500 mg tablet Take 500 mg by mouth 2 times daily. zolpidem (AMBIEN) 10 mg tablet Take 10 mg by mouth daily at bedtime. QUEtiapine (SEROquel) 100 mg tablet Take 100 mg by mouth. ixekizumab (Taltz Autoinjector) 80 mg/mL Auto-Injector 80 mg every 30 days. dapagliflozin propanediol (Farxiga) 5 mg Tablet Take 1 Tablet by mouth daily. albuterol sulfate HFA 90 mcg/actuation aerosol inhaler Take 2 Puffs by inhalation. fluticasone propionate (FLONASE) 50 mcg/spray [place], Suspension nasal inhaler Administer 1-2 Spraysin each nostril daily. nystatin (MYCOSTATIN) 100,000 unit/gram Cream Apply to affected area. DULoxetine (CYMBALTA) 60 mg Capsule, Delayed Release(E.C.) Take 60 mg by mouth. gabapentin (NEURONTIN) 600 mg tablet 600 mg. omeprazole (PriLOSEC) 20 mg Capsule, Delayed Release(E.C.) 20 mg. folic acid (FOLVITE) 1 mg tablet Take 1 mg by mouth. predniSONE (DELTASONE) 5 mg tablet 5 mg. ergocalciferol (VITAMIN D2) 2,000 unit Tablet tablet Take 50,000 Units by mouth every 7 days. methotrexate (RHEUMATREX) 2.5 mg Tablet Take 2.5 mg by mouth every 7 days. lovastatin (MEVACOR) 20 mg tablet Take 20 mg by mouth. HYDROcodone-acetaminophen (HYCET) 7.5-325 mg/15 mL Solution 15 mL. baclofen (LIORESAL) 10 mg tablet Take 10 mg by mouth. No current facility-administered medications for this visit. Allergies Allergies Allergen Reactions Penicillins Rash and Shortness of Breath/Wheezing Metformin Nausea and Vomiting Immunizations: There is no immunization history on file for this patient. Family History Family History Problem Relation Name Age of Onset Diabetes Father Heart Disease Father Arthritis-osteo Father Hypertension Father Diabetes Mother Heart Disease Mother Arthritis-osteo Mother Hypertension Mother Heart Disease Brother Arthritis-osteo Brother Heart Disease Sister Arthritis-osteo Sister No Known Problems Sister No Known Problems Sister No Known Problems Son No Known Problems Son Social History Social History Tobacco Use Smoking status: Every Day Packs/day: 1 Types: Cigarettes Smokeless tobacco: Never Substance Use Topics Alcohol use: Yes Comment: socially Review of Systems Constitutional: Patient did not mention fever; no night sweats; no anorexia; no weight loss; no fatique NEENT: Patient did not mention headache; no change in vision; no change in hearing; no sore throat;no dysphagia Respiratory: Patient did not mention shortness of breath; no pleuritic chest pain; no cough; no hemoptysis Cardiac: Patient did not mention cardiac-like chest pain; no palpitations; no orthopnea; no PND; noDOE Breasts: Patient did not mention tenderness; no masses GI: Patient did not mention abdominal pain; no vomiting; no diarrhea; no hematochezia; no melena, intermittent nausea : Patient did not mention dysuria; no frequency; no hesitancy; no hematuria PAINT POURER: Musculosketetal: Patient did not mention bone pain; no arthralgia; no joint swelling; no myalgia; Skin: Patient did not mention pruritis; no rash; no petechiae; no ecchymoses Endocrine: Patient did not mention polydipsia; no polyuria; no unusual weight gain Neuro: Patient did not mention headache; no change in vision; no sensory changes; no muscle weakness; no confusion; no seizures Psych: Patient did not mention anxiety; no depression; Physical Exam Vitals: As per nursing note Constitutional: Well developed, well nourished, no acute distress, non-toxic appearance Teeth and gum. No signs of infection or swelling. Eyes: PERRL, conjunctiva normal HEENT: Atraumatic, external ears normal, nose normal, oropharynx moist, no pharyngeal exudates. no sinus tenderness Neck- normal range of motion, no tenderness, supple Respiratory: No respiratory distress, normal breath sounds, no rales, no wheezing Cardiovascular: Normal rate, normal rhythm, no murmurs, no gallops, no rubs GI: Soft, nondistended, normal bowel sounds, nontender, no splenomegaly, no hepatomegaly, no mass, no rebound, no guarding : No costovertebral angle tenderness Musculoskeletal: No edema, no tenderness, no deformities. Back- no tenderness Integument: Well hydrated, no rash, Digits and nails inspection normal Lymphatic: No lymphadenopathy noted Neurologic: Alert & oriented x 3, CN 2-12 normal, normal motor function, normal sensory function, no focal deficits noted Psychiatric: Speech and behavior appropriate ? labs No results found for this or any previous visit (from the past 24 hour(s)). Pathology ? Imaging & Other Studies Performance Status? Assessment / Plan: ? Generalized lymphadenopathy. Patient is a pleasant 68-year-old obese female with history of psoriatic arthritis, type 2 diabetes, hyperlipidemia, hypertension, peripheral neuropathy and depression. She is been on methotrexate for last 3 years duration for her arthritis. She had work-up done for leukocytosis 2 years ago by oncologist that came back unremarkable for any malignancy. She denies any night sweats fever chills but has lost 30 pound weight in last year duration but due to Ozempic. She went to the ER recently with nausea vomiting and PET scan was performed that showed hypermetabolic lymphadenopathy in left axillary, mesenteric and right external iliac chain. These findingsare worrisome for lymphoproliferative disorders. On my examination there is no evidence of lymphadenopathy but this could be due to her body habitus. At this time I will order the work-up that will include CBC, CMP, C- reactive protein, LDH, peripheral smear review and flow cytometric analysis for lymphoma. If my testing comes back negative then we will perform left axillary lymph node biopsy. I have answered all the questions to patient's satisfaction. Follow-up with me in 2 weeks. Type 2 diabetes. Patient is on Ozempic. Hypertension. She is on Zestril. Peripheral neuropathy. She is on gabapentin. Psoriatic arthritis. She is on prednisone and methotrexate. Hypertension. Patient is on Mevacor. Thank you very much for allowing me to participate in Karolina Ramos's evaluation and management. Please feel free to contact if I can be of any further assistance in your patient???s care requiring hematology or oncology evaluation. Sincerely, ? ? Venkatesh Bolanos M.D. cell TOBACCO COUNSELING She was counseled to discontinue tobacco/nicotine use. Venkatesh Bolanos MD ,04/02/2023 2:29 PM ? Total time spent 60 minutes, two third of the total time spent counseling patient [id number]. CC:?Jacki Cabrera MD D MANAGER documented in this encounter Plan of Treatment Upcoming Encounters Date Type Department Care Team (Late st Contact Info) Description 05/13/2024 9:15 AM GUARD MANAGER Office Visit [facility] Oncology and Hematology - Yakov [address] [facility] [address] [place] [address] Venkatesh Bolanos MD [address] [place] [address] documented as of this encounter Visit Diagnoses Diagnosis Leukocytosis, unspecified type- Primary documented in this encounter Care Teams Security Assistant Relationship Specialty Start Date End Date Jacki Cabrera MD PCP - General Internal Medicine 01/06/19 documented as of this encounter
--- OUTSIDE RECORDS SUMMARY | 2024-05-11 12:20 | XMS_ITS | Encounter Summary ---
Author Organization [facility] [employer] [facility] Address [address] [place] [address] Care Team Providers Care Solutions Specialist Name Role Phone Jacki Cabrera MD Primary Care Provider Encounter Details Date Type Department Care Team ([facility] Contact Info) Description 07/01/2023 Orders Only [facility] Oncology and Hematology [facility] [address] [place] [address] [facility] [employer] [address] [place] [address] Follicular lymphoma, unspecified follicular lymphoma type, [...] (Late Contact Info) Description 05/13/2024 9:15 AM MANAGING COGNITIVE ENGINEER Office Visit [facility] Oncology and Hematology Y[address] [place] [address] [facility] [employer] [address] [place] [address] documented as of this encounter Visit Diagnoses Diagnosis Follicular lymphoma, unspecified follicular lymphoma type, unspecified body region documented in this encounter Care Teams Solutions Specialist Relationship Specialty Start Date End Date Jacki Cabrera MD PCP - General Internal Medicine 01/06/19 documented as of this encounter
--- OUTSIDE RECORDS SUMMARY | 2024-05-11 12:21 | XMS_ITS | Continuity of Care Document ---
Author Organization [facility] Address [address] [facility] [address] [place] [address] Phone Care Team Providers Care Jackaroo Name Role Phone Marcus Hernandez MD Unavailable [...] Providers Copied on Encounter [facility], [address] [facility] [address], [address], [place] tel:[phone] [facility] [place] Knee joint replacementPost Op joint replacement 5 Mary [address]. [address] [place], [place], [id number] . tel:[phone] [facility], [address] [facility] [facility] [address], [place], [address], [place] tel:[phone] [facility] [place] Post Op joint replacementKnee joint replacement 5 Mary Velazquez. [address] [place], [place], [id number] . tel: [phone] [facility], [address] [facility] [facility], [place], [address], [place] tel:[phone] [facility] [place] Knee joint replacementPost Op joint replacement 5 Mary Velazquez. [address] [place], [place], [id number] . tel: [phone] [facility], [address], [place], [address], [place] tel:[phone] [facility] [place] Osteoarthrosis, localized, not specified whether primary or secondary, involving lower legEffusion of lower leg joint 5 [address]. [address] [place], [place], [id number] . tel: [phone] [facility], [address] [facility], [place], [address], [place] tel:[phone] [facility] [place] Osteoarthrosis, localized, not specified whether primary or secondary, involving lower leg 4 [address] [place], [place], [id number] . tel: [phone] [facility], [address] [facility], [place], [address], [place] tel:[phone] [facility] [place] Post Op joint replacementKnee joint replacement 2 Pams[address]. [address] [place], [place], [id number] . tel: [phone] [facility], [address] [facility], [place], [address], [place] tel:[phone] [facility] [place] Pain in joint involving lower legContusion of knee Fe 2 [address] [place], [place], [id number] . tel: [phone] Family History Family Member Type Diagnosis Age [...]
== END 2024-05-04 08:14 | disposition home or self-care (01) ==
PROVIDERS: PCP Internal Medicine; Visit Provider Internal Medicine Hematology & Oncology
DX: C82.90 Follicular lymphoma, unspecified, unspecified site (principal); K42.9 Umbilical hernia without obstruction or gangrene; E04.2 Nontoxic multinodular goiter; I71.21 Aneurysm of the ascending aorta, without rupture; Z98.890 Other specified postprocedural states
CPT/HCPCS: 36598; 71260; 74177; Q9966; Q9967

== ENCOUNTER 2024-08-15 08:05 | Outpatient (CLI) | payer MEDICARE, SELFPAY ==
--- NOTE | ~2024-08-15 | US_ITS ---
Limited Abdominal Sonogram: Real-time sonographic imaging of the right upper quadrant was performed. Clinical History: Abnormal liver enzymes Findings: The liver appears normal with no evidence of mass lesion or bile duct dilatation. Main por rosibel vein demonstrates normal direction of flow. The gallbladder is poorly distended, but with an area of shadowing, suggestive of shadowing gallstone. The common bile duct measures 5 mm. The visualized pancreas, aorta, and IVC are unremarkable. Impression: Suspected cholelithiasis, though gallbladder is somewhat poorly visualized/evaluated. Reviewed, dictated and finalized at location M. Impression: Suspected cholelithiasis, though gallbladder is somewhat poorly visualized/eval uated.
== END 2024-08-15 08:06 | disposition home or self-care (01) ==
LOC: MICIMG 08:06
PROVIDERS: PCP Internal Medicine; Visit Provider Internal Medicine Gastroenterology
DX: R74.8 Abnormal levels of other serum enzymes (principal)
CPT/HCPCS: 76705

== ENCOUNTER 2024-12-29 08:25 | Outpatient (CLI) | payer MEDICARE, SELFPAY ==
--- OUTSIDE RECORDS SUMMARY | 2014-12-28 05:00 | XMS_ITS | Continuity of Care Document ---
Author Organization [facility] Address [address] [facility] [address] [place] [address] Phone Care Team Providers Care Complex Director Name Role Phone Marcus Hernandez MD Unavailable [...] Providers Copied on Encounter [facility], [address] [facility] [address], [address], [place] tel:[phone] [facility] [place] Knee joint replacementPost Op joint replacement 5 Mary Velazquez. [address] [place], [place], [id number] . tel:[phone] [facility], [address] [facility] [address], [place], [address], [place] tel:[phone] [facility] [place] Post Op joint replacementKnee joint replacement 5 Mary Velazquez. [address] [place], [place], [id number] . tel: [phone] [facility], [address] [facility], [place], [address], [place] tel:[phone] [facility] [place] Knee joint replacementPost Op joint replacement 5 Mary Velazquez. [address] [place], [place], [id number] . tel: [phone] [facility], [address], [place], [address], [place] tel:[phone] [facility] [place] Osteoarthrosis, localized, not specified whether primary or secondary, involving lower legEffusion of lower leg joint 5 Pamsong Velazquez. [address] [place], [place], [id number] . tel: [phone] [facility], [address] [facility], [place], [address], [place] tel:[phone] [facility] [place] Osteoarthrosis, localized, not specified whether primary or secondary, involving lower leg 4 Pamsong Velazquez. [address] [place], [place], [id number] . tel: [phone] [facility], [address] [facility], [place], [address], [place] tel:[phone] [facility] [place] Post Op joint replacementKnee joint replacement 2 Pamsong Velazquez. [address] [place], [place], [id number] . tel: [phone] [facility], [address] [facility], [place], [address], [place] tel:[phone] [facility] [place] Pain in joint involving lower legContusion of knee Fe 2 Pamsong Velazquez. [address] [place], [place], [id number] . tel: [phone] Family History Family Member Type Diagnosis Age At Onset No Information Payers Payer name Insurance type Covered republican ID Authoriza tion(s) No Information Social History [...]
--- OUTSIDE RECORDS SUMMARY | 2024-01-10 06:30 | XMS_ITS ---
Author Organization Page [facility] Address [address] [place] [address] Care Team Providers Care Switch Tender Name Role Phone Deborah BREEN, Jacki Primary Care Provider Un available Pamella Alonzo Unavailable [phone] REASON FOR VISIT callus, neuropathy Encounters Encounter Location Date Provider Diagnosis [place] [facility] [address] [phone] 01/10/2024 Pamella Alonzo Plan Of Treatment No Information Progress Notes * Karolina RAMOS LDOB: 7 (69 yo F)Acc No.[id number]:01/10/2024 Progress Notes Patient: Karolina NAJERA Provider: Marv Alonzo DPM, DABPM :1955 A ge:68 Y S ex:Female Date:01/10/2024 Address:[address] [place], [place] [id number] Pcp:Jacki Cabrera MD Subjective: * Chief Complaints: * 1 . Callus, neuropathy. * Medical History: Objective: * Vitals: Assessment: Plan: * Treatment: * Billing Information: * Visit Code: * Procedure Codes: * Electronic signature of Nishi Alonzo DPM DABPM on 12/29/2024 at 08:32 AM CDT Sign off status: Pending * Provider: Marv Alonzo DPM, DABPM Date: 0 01/10/2024 Generated for Printi ng/Faxing/eTransmitting on: 0 12/29/2024 08:32 AM CDT
--- OUTSIDE RECORDS SUMMARY | 2024-02-07 05:00 | XMS_ITS ---
Author Organization Page S [facility] Address [address] [place] [address] Care Team Providers Care Mortgage Protection Specialist Name Role Phone Deborah BREEN, Jacki Primary Care Provider Un available Pamella Alonzo Unavailable [phone] REASON FOR VISIT callus, neuropathy Encounters Encounter Location Date Provider Diagnosis [facility] [address] [phone] 02/07/2024 Pamella Alonzo Plan Of Treatment No Information Progress Notes * Karolina RAMOS LDOB: 7 (69 yo F)Acc No.[id number]:02/07/2024 Progress Notes Patient: Karolina NAJERA Provider: Marv Alonzo DPM, DABPM :1955 A ge:68 Y S ex:Female Date:02/07/2024 Address:[address] [place], [place] [id number] Pcp:Jacki Cabrera MD Subjective: * Chief Complaints: * 1 . Callus, neuropathy. * Medical History: Objective: * Vitals: Assessment: Plan: * Treatment: * Billing Information: * Visit Code: * Procedure Codes: * Electronic signature of Nishi Alonzo DPM DABPM on 12/29/2024 at 08:33 AM CDT Sign off status: Pending * Provider: Marv Alonzo DPM, DABPM Date: 1 Generated for Printi ng/Faxing/eTransmitting on: 0 12/29/2024 08:33 AM CDT
--- OUTSIDE RECORDS SUMMARY | 2024-08-07 07:45 | XMS_ITS ---
Author Organization [facility] Address [address] [place] [address] Care Team Providers Care Electrician Radio Name Role Phone [place]Percy[place] Unavailable [phone] Social History Sex Assigned At : Social History Observation Description Sex Assigned At Female Encounters Encounter Location Date Provider Diagnosis [facility] [place] [facility] [address] [place] [address] 08/07/2024 Lee Tomas Plan Of Treatment No Information Progress Notes * AHSAN HANEYDOB:1955 (69 yo F)Acc No.[id number]:08/07/2024 Progress Notes Patient: AHSAN NAJERA Provider: Diipka SERRATO MD, Brooks.Ludwig.C.P, F.A.S.N. :1955 A ge:69 Y S ex:Female Date:08/07/2024 Address:[address] [place] [address] Subjective: * Chief Complaints: * * Medical History: Objective: * Vitals: Assessment: Plan: * Treatment: * Billing Information: * Visit Code: * Procedure Codes: * Electronic signature of Maria Eugenia Tomas MD on 12/29/2024 at 08:33 AM CDT Sign off status: Pending * Provider: Dipika SERRATO MD, Brooks.Ludwig.C.P, F.A.S.N. Date: 08/07/2024 Generated for Printing/Faxing/eTransmitting on: 0 12/29/2024 08:33 AM CDT
--- OUTSIDE RECORDS SUMMARY | 2024-08-21 09:45 | XMS_ITS ---
Author Organization [facility] Address [address] [place] [address] Care Team Providers Care Information Technology Account Manager Name Role Phone ThomPercyLee Unavailable [phone] Medications Medication SIG (Take, Route, Frequency, Duration) Notes Start Date End Date Status Losartan Potassium 50 MG 1 tablet Orally Once a day; Duration: 90 days 07/06/2024 Active Ergocalciferol 1.25 MG (66925 UT) 1 capsule Orally Once a week; [...] W/U Status Risk Notes Problem Vitamin D deficiency, unspecified (E55.9) Active confirmed Encounters Encounter Location Date Provider Diagnosis [place] [facility] [address] [facility] [address] [place] [address] 08/21/2024 Lee Tomas Chronic kidney disea se, [...] Notes * AHSAN HANEYDOB:1955 (69 yo F)Acc No.[id number]:08/21/2024 Progress Notes Patient: AHSAN NAJERA Provider: Dipika SERRATO MD, F.A.C.P, F.A.S.N. :1955 A ge:69 Y S ex:Female Date:08/21/2024 Address:[address] [place] [address] Subjective: * Chief Complaints: * * Medical History: * Medications: T aking Dapagliflozin Propanediol 5 MG Tablet Take 1 tablet by mouth once daily , Taking Calcitriol 0.25 MCG Capsule Take 1 capsule by mouth once daily , Taking Ergocalciferol 1.25 MG (44450 UT) Capsule 1 capsule Orally Once a [...] Treatment: * Billing Information: * Visit Code: 39296 Office Visit, Est Pt., Level 4. * Procedure Codes: * Electronic signature of Maria Eugenia Tomas MD on 12/29/2024 at 08:32 AM CDT Sign off status: Pending * Provider: Dipika SERRATO MD, F.A.C.P, F.A.S.N. Date: 0 08/21/2024 Generated for Printing/Faxing/eTransmitting on: 12/29/2024 08:32 AM CDT
--- OUTSIDE RECORDS SUMMARY | 2024-10-19 11:00 | XMS_ITS ---
Author Organization [facility] [employer] [facility] Address [facility] [address] [facility] [address] [place] [address] Care Team Providers Care Compugraph Operator Name Role Phone Deborah BREEN, Jacki Primary Care Provider Un available Rosita Smith Unavailable [phone] REASON FOR VISIT 1 month f/u Social History Sex Assigned At : Social History Observation Description Sex Assigned At Female Encounters Encounter [facility] [address] [facility] [address] [place] [address] 10/19/2024 Rosita Smith Plan Of Treatment No Information Progress Notes * AHSAN HANEYDOB:1955 (69 yo F)Acc No.[id number]:10/19/2024 Patient: AHSAN NAJERA Provider: Marv Smith :1955 A ge:69 Y S ex:Female Date:10/19/2024 Address:[address] [facility] Pcp:Jacki Cabrera MD Subjective: * Chief Complaints: * 1 month f/u * Electronic signature of Flako Smith on 12/29/2024 at 08:33 AM CDT Sign off status: Pending * Provider: Marv Smith Date: 10/19/2024 Generated for Virii ng/Faxing/eTransmitting on: 0 12/29/2024 08:33 AM CDT
--- OUTSIDE RECORDS SUMMARY | 2024-11-18 12:45 | XMS_ITS ---
Author Organization [facility] Address [address] [facility] [address] [facility] [address] [place] [address] Care Team Providers Care Crankshaft Balancer Name Role Phone Thom Lee Unavailable [phone] Medications Medication SIG (Take, Route, Frequency, Duration) Notes Start Date End Date Status Potassium Chloride ER 20 MEQ Take 1 tablet by mouth twice daily; Duration: 90 Active Ergocalciferol 1.25 MG (04456 UT) 1 capsule Orally Once a week; [...] Female Encounters Encounter Location Date Provider Diagnosis [place] [facility] [address] [address] 11/18/2024 Lee Tomas Plan Of Treatment No Information Progress Notes * AHSAN HANEYDOB:1955 (69 yo F)Acc No.[id number]:11/18/2024 Progress Notes Patient: AHSAN NAJERA Provider: Dipika SERRATO MD, F.A.C.P, F.A.S.N. :1955 A ge:69 Y S ex:Female Date:11/18/2024 Address:[address] [place], [place] [address] Subjective: * Chief Complaints: * * Medical History: * Medications: T aking Dapagliflozin Propanediol 5 MG Tablet Take 1 tablet by mouth once daily , Taking Ergocalciferol 1.25 MG (57137 UT) Capsule 1 capsule Orally Once a [...] Treatment: * Billing Information: * Visit Code: 72169 Office Visit, Est Pt., Level 5. * Procedure Codes: * Electronic signature of Maria Eugenia Tomas MD on 12/29/2024 at 08:33 AM CDT Sign off status: Pending * Provider: Dipika SERRATO MD, F.A.C.P, F.A.S.N. Date: 0 11/18/2024 Generated for Printing/Faxing/eTransmitting on: 12/29/2024 08:33 AM CDT
--- NOTE | ~2024-12-29 | CT_ITS ---
EXAMINATION: CT chest abdomen pelvis w con, 12/29/2024 8:35 CDT HISTORY: Follicular lymphoma COMPARISON: Comparison 05/04/2024. TECHNIQUE: CT scan of the chest, abdomen and pelvis was performed with contrast Isovue 300, 92cc injected IV. One or more of the following dose reduction techniques were used: automated exposure control, adjustment of the mA and/or kV according to patient size, use of iterative reconstruction technique. Unless otherwise stated, incidental findings do not require dedicated follow up imaging FINDINGS: CT chest: No significant coronary calcification is present ([id number]) LUNGS: No tracheomalacia. No bronchiectasis. Minimal emphysematous changes. Minimal pulmonary fibrotic changes. HEART AND PERICARDIUM: Within normal limits. AORTA: Normal caliber aorta. MEDIASTINUM: Unremarkable. THYROID: Exophytic right probable thyroid nodule 1.2 x 1.2 cm, ultrasound is suggested to further evaluate. CT abdomen: LIVER: The main portal vein is patent. No intrahepatic biliary duct dilatation. SPLEEN: Unremarkable, no splenomegaly. KIDNEYS: Right Kidney: Unremarkable. No calculi. No hydronephrosis. Left Kidney: Left kidney subcentimeter probable renal cysts. ADRENAL GLANDS: Unremarkable. PANCREAS: GALLBLADDER/BILIARY: The gallbladder is contracted with minimal cholelithiasis. STOMACH AND ESOPHAGUS: Postsurgical changes noted in the stomach. The stomach is decompressed. BOWEL/MESENTERY: Moderate fecal content, no colitis or diverticulitis. Appendix is normal. Mesentery is normal. Small bowel normal. There are postsurgical changes noted in the small bowel. RETROPERITONEUM: Unremarkable AORTA/VASCULATURE: Normal caliber aorta. FREE FLUID OR FREE AIR: No free fluid.. CT pelvis: SOLID ORGANS/REPRODUCTIVE: Status post hysterectomy. No adnexal mass. BLADDER: Small amount of air in the bladder probably relates to recent catheterization. LYMPHADENOPATHY: No lymphadenopathy. OSSEOUS STRUCTURES: There are no sclerotic or lytic lesions identified. OVERLYING SOFT TISSUES: Very small fat-containing umbilical hernia. Soft tissues right-sided subcutaneous emphysema noted. IMPRESSION: 1. No lymphadenopathy identified. Incidental findings above Reviewed, dictated and finalized at location A.
--- OUTSIDE RECORDS SUMMARY | 2024-12-29 08:33 | XMS_ITS | Patient Health Record ---
Author Organization [facility] Address [address] [place] [address] Care Team Providers Care Padder Name Role Phone Deborah BREEN, Jacki Primary Care Provider Un available Rosita Smith Unavailable [phone] Allergies Allergen (clinical drug ingredient) Drug/Non Drug Allergy documented on EMR Reaction Allergy Type Onset Date Status metformin / saxagliptin Kombiglyze XR Unknown Drug Allergy 08/19/2023 Active Reason For Referral No Information Medications Medication SIG (Take, Route, Frequency, Duration) Notes Start Date End Date Status Lovastatin 20 MG Tablet Oral; Duration: 90 Days Active Methotrexate Sodium 2.5 MG Tablet TAKE 8 TABLETS BY MOUTH ONCE A WEEK Oral; Duration: 28 Days Active QUEtiapine Fumarate 100 MG Tablet 1 tablet at bedtime Oral Once a day total dose 150mg Active Trintellix 10 MG Tablet 1 tablet at bedt gail Oral Once a day Active hydrOXYzine HCl 25 MG Tablet 0.5 to 1 ta b Oral twice a day; Duration: 30 days Active Eszopiclone 2 MG Tablet TAKE 1 TABLET BY MOUTH IMMEDIATELY BEFORE BEDTIME ONCE A DAY.; Duration: 30 12/14/2024 Active Ondansetron 8 MG Tablet Disintegrating Oral; Duration: 10 Days Ac tive DULoxetine HCl 60 MG Capsule Delayed Release Particles 1 capsule Oral twice a day Active Folic Acid 1 MG Tablet Oral 08/19/2023 Active Gabapentin 600 MG Tablet Oral 08/19/2023 Active sulfaSALAzine 500 MG Tablet Oral 08/19/2023 Active Omeprazole 20 MG Capsule Delayed Release Oral 08/19/2023 Active Baclofen 10 MG Tablet Oral 08/19/2023 Active predniSONE 5 MG Tablet Oral 08/19/2023 Active Lisinopril 20 MG Tablet 1 tablet Orally Once a day Active Immunizations Vaccine Route Administration Date Status Comme nts Influenza virus vaccine, quadrivalent (IIV4), split virus, 0.25 mL dosage Unknown 05/28/2018 Administered Influenza, injectable, MDCK, preservative free Unknown 03/18/2016 Administered Influenza, seasonal, injecta ble, preservative free, 3 yrs and above Unknown 02/10/2008 Administered Influenza, seasonal, injecta ble, preservative free, 3 yrs and above Unknown 04/22/2015 Administered Influenza, seasonal, injecta ble, preservative free, 3 yrs and above Unknown 02/04/2020 Administered Influenza, unspecified formulation Unknown 03/06/2015 A dministered Bryson Covid-19 Vaccine Unknown 08/04/2020 Administere d Bryson Covid-19 Vaccine Unknown 08/15/2020 Administere d Bryson Covid-19 Vaccine Unknown 04/03/2021 Administere d Novel [id number], preservative free Unknown 01/23/2017 Administered Novel [id number], preservative free Unknown 02/22/2019 Administered Novel [id number]-[id number], preservative free Unknown 02/16/2020 Administered Pneumococcal polysaccharide PPV23 Unknown 08/13/2006 Ad ministered Zoster Unknown 02/22/2019 Administered Zoster Unknown 04/30/2019 Administered Social History Tobacco Use: Social History Observation Description Date Details (start date - stop date) Current Smoker NA - NA Sex Assigned At : Social History Observation Description Sex Assigned At Female Social History Tobacco Use: Social Info Question Answer Notes Tobacco Control (Standard) How often do you smoke cigarettes? Every day How many cigarettes a day do you smoke? 11-20 How soon after you wake up do you smoke your first cigarette? 6-30 minutes Tobacco use: Current smoker Are you interested in quitting? Not ready to quit Additional Details Category Social Info Options Details Migrated Social History Migrated Social History Alcohol Intake: Occasional 08/02/2020,Tobacco Years: Current every day smoker 03/24/2018 Problems Problem Type SNOMED Code ICD Code Onset Dates Problem Status W/U Status Risk Notes Problem Mild recurrent major depression (14397891) Major depressive disorder, recurrent, mild (F33.0) Active confirmed Problem Moderate recurrent major depression (91383259) Major depressive disorder, recurrent, moderate (F33.1) Active confirmed Problem Generalized anxiety disorder (16901295) Generalized anxiety disorder (F41.1) 4 Active confirmed Problem Primary insomnia (7252182) Primary insomnia (F51.01) 4 Active confirmed Problem Recurrent falls (077318622) Repeated falls (R29.6) Active confirmed Problem Essential hypertension (84025975) Benign essential HTN (I10) Active confirmed Vital Signs Heart Rate 102 /min 09/16/2024 Height-cm 172.72 cm 09/16/2024 Blood pressure diastolic 105 mm Hg 09/16/2024 Weight-kg 101.15 kg 09/16/2024 Height 68.00 in 09/16/2024 Blood pressure systolic 167 mm Hg 09/16/2024 Weight 223 lbs 09/16/2024 BMI 33.9 kg/m2 09/16/2024 Encounters Encounter Location Date Provider Diagnosis [facility] [employer] [address] [address] 03/25/2024 Rosita Smith Major depressive disorder, recurrent, mild F33.0 ; Generalized anxiety disorder F41.1 and Primary insomnia F51.01 [facility] [employer] [address] [address] 07/07/2024 Rosita Smith Generalized anxiety disorder F41.1 ; Major depressive disorder, recurrent, mild F33.0 ; Primary insomnia F51.01 ; Repeated falls R29.6 ; Benign essential HTN I10 and Nicotine use Z72.0 [facility] [place] [id number] [facility] [address] [address] 08/03/2024 Rosita Smith Generalized anxiety disorder F41.1 ; Major depressive disorder, recurrent, mild F33.0 ; Primary insomnia F51.01 ; Repeated falls R29.6 ; Nicotine use Z72.0 and Benign essential HTN I10 [facility] [place] [id number] [facility] [address] [address] 09/16/2024 Rosita Smith Primary insomnia F51.01 ; Major depressive disorder, recurrent, moderate F33.1 ; Generalized anxiety disorder F41.1 ; Benign essential HTN I10 and Encounter for screening for depression Z13.31 [facility] [place] [id number] [facility] [address] [address] [facility] [address] [place] [address] 07/29/2024 Rositagrady Craftzachary Primary insomnia F51.01 [facility] [address] [place] [address] 07/29/2024 Rositagrady Craftzachary [facility] [address] [place] [address] 07/07/2024 Rosita Smith Assessments Encounter Date Diagnosis (ICD Code) Assessment [...] stability. - Call if any concerns arrise 07/07/2024 Generalized anxiety disorder (ICD-10 - F41.1) Serotonin-Norepine phrine Reuptake Inhibitors (SNRIs) & Precautions for Older Adults Common SNRIs: Duloxetine (Cymbalta); Venlafaxine (Effexor XR); Desvenlafaxine (Pristiq); Levomilnacipran (Fetzima) - May cause dizziness, orthostatic hypotension (a drop in blood pressure when standing), and sedation, increasing the risk of falls. Encourage slow position changes (sitting up before standing). - May increase blood pressure, especially venlafaxine. Monitor your blood pressure regularly, especially if you have hypertension and/or cardiovascular disease - May increase bleeding risk, especially when combined with blood thinners or NSAIDs (e.g., ibuprofen, aspirin). Monitor for signs of bruising or gastrointestinal bleeding. - May contribute to confusion, agitation, or sedation in older adults, especially those with dementia or cognitive impairment. - May increase risk for SIADH (syndrome of inappropriate antidiuretic hormone secretion), which older adults are more susceptible to. This leads to low sodium levels. Watch for symptoms like confusion, weakness, and seizures. - Abrupt discontinuation can cause withdrawal symptoms such as dizziness, nausea, headaches, and flu-like symptoms. Always taper doses gradually under medical supervision. - SNRIs are metabolized in the liver and excreted by the kidneys. Dose adjustments may be necessary for those with impaired liver or kidney function Insomnia and sleepwalking - Sleepwalking and waking up multiple times during the night - Suspect Ambien as cause of sleepwalking, open to tapering off - She decrease quetiapine to 50 mg believing that was reason Plan: - Taper off Ambien, start by reducing dose to 5 mg - Increase quetiapine back to 100 mg at bedtime - Educated on risk of rebound insomnia - Encourage maintaining a consistent sleep schedule and practicing good sleep hygiene. - Reassess sleep quality in 4 weeks Hypertension - BP elevated in office (has been consistently high reading each visit) - Reports at home monitoring BP is not that high, reports was 112/79 this morning - On new medication for hypertension Plan: - Continue monitoring blood pressure - Consider duloxetine and potential impact on BP - Follow up with primary care physician for medication adjustments if necessary Falls - Fallen four times in past two weeks, she reports falls due to being clumsy - Also reports knees have been bothering her from arthritis; walking with cane today - Duloxetine may contribute to dizziness and fall risk - Also on ambien chronically Plan: - Encourage patient to rise slowly from seated or lying position - Assess need for home safety evaluation - Reevaluate duloxetine dosage and necessity Depression and Anxiety - In good spirits, denies depression currently - Supportive living situation with niandreas Plan: - Continue Trintellix 10 mg daily - Continue monitoring mood - Continue duloxetine 60 mg twice daily for now; she does not wish to change at this time Follow-up in 4 weeks to assess response to new sleeping medication and overall well-being, sooner if concerns arise 07/29/2024 Primary insomnia (ICD-10 - F51.01) 08/03/2024 Generalized anxiety disorder (ICD-10 - F41.1) 09/16/2024 Major depressive disorder, recurrent, moderate (ICD-10 - F33.1) 09/16/2024 Primary insomnia (ICD-10 - F51.01) 09/16/2024 Generalized anxiety disorder (ICD-10 - F41.1) 08/03/2024 Primary insomnia (ICD-10 - F51.01) 08/03/2024 Major depressive disorder, recurrent, mild (ICD-10 - F33.0) 07/07/2024 Major depressive disorder, recurrent, mild (ICD-10 - F33.0) Insomnia and sleepwalking - Sleepwalking and waking up multiple times during the night - Suspect Ambien as cause of sleepwalking, open to tapering off - She decrease quetiapine to 50 mg believing that was reason Plan: - Taper off Ambien, start by reducing dose to 5 mg - Increase quetiapine back to 100 mg at bedtime - Educated on risk of rebound insomnia - Encourage maintaining a consistent sleep schedule and practicing good sleep hygiene. - Reassess sleep quality in 4 weeks Hypertension - BP elevated in office (has been consistently high reading each visit) - Reports at home monitoring BP is not that high, reports was 112/79 this morning - On new medication for hypertension Plan: - Continue monitoring blood pressure - Consider duloxetine and potential impact on BP - Follow up with primary care physician for medication adjustments if necessary Falls - Fallen four times in past two weeks, she reports falls due to being clumsy - Also reports knees have been bothering her from arthritis; walking with cane today - Duloxetine may contribute to dizziness and fall risk - Also on ambien chronically Plan: - Encourage patient to rise slowly from seated or lying position - Assess need for home safety evaluation - Reevaluate duloxetine dosage and necessity Depression and Anxiety - In good spirits, denies depression currently - Supportive living situation with niece Plan: - Continue Trintellix 10 mg daily - Continue monitoring mood - Continue duloxetine 60 mg twice daily for now; she does not wish to change at this time Follow-up in 4 weeks to assess response to new sleeping medication and overall well-being, sooner if concerns arise 07/07/2024 Primary insomnia (ICD-10 - F51.01) Risks of Chronic Zolpidem (Ambien) Use - Long-term use can lead to physical and psychological dependence. - Stopping suddenly may cause withdrawal symptoms like anxiety, tremors, and rebound insomnia. Gradual tapering is recommended to minimize withdrawal effects - Over time, your body may require higher doses to achieve the same effect, increasing the risk of overdose and side effects. - Chronic use may affect memory, concentration, and decision-making. - Especially in older adults, Ambien can cause dizziness and impaired coordination, increasing the risk of falls and fractures. - Some users engage in activities (e.g., driving, eating, or talking) while not fully awake and have no memory of these actions. - Long-term use is linked to depression, anxiety, and mood swings. - Can worsen existing mental health conditions. - Combining Ambien with alcohol, benzodiazepines, or opioids increases the risk of respiratory depression, overdose, and . Insomnia and sleepwalking - Sleepwalking and waking up multiple times during the night - Suspect Ambien as cause of sleepwalking, open to tapering off - She decrease quetiapine to 50 mg believing that was reason Plan: - Taper off Ambien, start by reducing dose to 5 mg - Increase quetiapine back to 100 mg at bedtime - Educated on risk of rebound insomnia - Encourage maintaining a consistent sleep schedule and practicing good sleep hygiene. - Reassess sleep quality in 4 weeks Hypertension - BP elevated in office (has been consistently high reading each visit) - Reports at home monitoring BP is not that high, reports was 112/79 this morning - On new medication for hypertension Plan: - Continue monitoring blood pressure - Consider duloxetine and potential impact on BP - Follow up with primary care physician for medication adjustments if necessary Falls - Fallen four times in past two weeks, she reports falls due to being clumsy - Also reports knees have been bothering her from arthritis; walking with cane today - Duloxetine may contribute to dizziness and fall risk - Also on ambien chronically Plan: - Encourage patient to rise slowly from seated or lying position - Assess need for home safety evaluation - Reevaluate duloxetine dosage and necessity Depression and Anxiety - In good spirits, denies depression currently - Supportive living situation with niece Plan: - Continue Trintellix 10 mg daily - Continue monitoring mood - Continue duloxetine 60 mg twice daily for now; she does not wish to change at this time Follow-up in 4 weeks to assess response to new sleeping medication and overall well-being, sooner if concerns arise 03/25/2024 Generalized anxiety disorder (ICD-10 - F41.1) [...] stability. - Call if any concerns arrise 07/07/2024 Repeated falls (ICD-10 - R29.6) Fall Precautions for Older Adults Falls are a major cause of injury among older adults, but many can be prevented by taking simple precautions. - Remove clutter, loose rugs, and electrical cords from walking areas. Use non-slip mats in the bathroom and kitchen. - Install grab bars in the bathroom. Install handrails on both sides of stairways. - Ensure adequate lighting in all rooms, hallways, and stairways. Use nightlights in bedrooms and bathrooms to prevent falls at night. - Keep frequently used items within easy reach to avoid excessive bending or climbing. - Wear well-fitted, non-slip shoes with good support. Avoid long, loose clothing that can cause tripping. - Use a cane or walker if needed and ensure it is properly adjusted. - Consider a shower chair or raised toilet seat for added stability. - Avoid alcohol when taking medications that affect balance or alertness. - Have regular eye exams and ensure hearing aids are functioning properly, as hearing loss can affect balance. - Stand up slowly from a seated position to prevent dizziness. Stay hydrated to prevent dizziness. - Keep a phone or emergency alert system within reach. Consider using a fall detection device if living alone Insomnia and sleepwalking - Sleepwalking and waking up multiple times during the night - Suspect Ambien as cause of sleepwalking, open to tapering off - She decrease quetiapine to 50 mg believing that was reason Plan: - Taper off Ambien, start by reducing dose to 5 mg - Increase quetiapine back to 100 mg at bedtime - Educated on risk of rebound insomnia - Encourage maintaining a consistent sleep schedule and practicing good sleep hygiene. - Reassess sleep quality in 4 weeks Hypertension - BP elevated in office (has been consistently high reading each visit) - Reports at home monitoring BP is not that high, reports was 112/79 this morning - On new medication for hypertension Plan: - Continue monitoring blood pressure - Consider duloxetine and potential impact on BP - Follow up with primary care physician for medication adjustments if necessary Falls - Fallen four times in past two weeks, she reports falls due to being clumsy - Also reports knees have been bothering her from arthritis; walking with cane today - Duloxetine may contribute to dizziness and fall risk - Also on ambien chronically Plan: - Encourage patient to rise slowly from seated or lying position - Assess need for home safety evaluation - Reevaluate duloxetine dosage and necessity Depression and Anxiety - In good spirits, denies depression currently - Supportive living situation with niece Plan: - Continue Trintellix 10 mg daily - Continue monitoring mood - Continue duloxetine 60 mg twice daily for now; she does not wish to change at this time Follow-up in 4 weeks to assess response to new sleeping medication and overall well-being, sooner if concerns arise 08/03/2024 Repeated falls (ICD-10 - R29.6) no falls reportedly recently 09/16/2024 Benign essential HTN (ICD-10 - I10) 09/16/2024 Encounter for screening for depression (ICD-10 - Z13.31) 08/03/2024 Nicotine use (ICD-10 - Z72.0) 07/07/2024 Benign essential HTN (ICD-10 - I10) Insomnia and sleepwalking - Sleepwalking and waking up multiple times during the night - Suspect Ambien as cause of sleepwalking, open to tapering off - She decrease quetiapine to 50 mg believing that was reason Plan: - Taper off Ambien, start by reducing dose to 5 mg - Increase quetiapine back to 100 mg at bedtime - Educated on risk of rebound insomnia - Encourage maintaining a consistent sleep schedule and practicing good sleep hygiene. - Reassess sleep quality in 4 weeks Hypertension - BP elevated in office (has been consistently high reading each visit) - Reports at home monitoring BP is not that high, reports was 112/79 this morning - On new medication for hypertension Plan: - Continue monitoring blood pressure - Consider duloxetine and potential impact on BP - Follow up with primary care physician for medication adjustments if necessary Falls - Fallen four times in past two weeks, she reports falls due to being clumsy - Also reports knees have been bothering her from arthritis; walking with cane today - Duloxetine may contribute to dizziness and fall risk - Also on ambien chronically Plan: - Encourage patient to rise slowly from seated or lying position - Assess need for home safety evaluation - Reevaluate duloxetine dosage and necessity Depression and Anxiety - In good spirits, denies depression currently - Supportive living situation with niece Plan: - Continue Trintellix 10 mg daily - Continue monitoring mood - Continue duloxetine 60 mg twice daily for now; she does not wish to change at this time Follow-up in 4 weeks to assess response to new sleeping medication and overall well-being, sooner if concerns arise 08/03/2024 Benign essential HTN (ICD-10 - I10) 07/07/2024 Nicotine use (ICD-10 - Z72.0) Insomnia and sleepwalking - Sleepwalking and waking up multiple times during the night - Suspect Ambien as cause of sleepwalking, open to tapering off - She decrease quetiapine to 50 mg believing that was reason Plan: - Taper off Ambien, start by reducing dose to 5 mg - Increase quetiapine back to 100 mg at bedtime - Educated on risk of rebound insomnia - Encourage maintaining a consistent sleep schedule and practicing good sleep hygiene. - Reassess sleep quality in 4 weeks Hypertension - BP elevated in office (has been consistently high reading each visit) - Reports at home monitoring BP is not that high, reports was 112/79 this morning - On new medication for hypertension Plan: - Continue monitoring blood pressure - Consider duloxetine and potential impact on BP - Follow up with primary care physician for medication adjustments if necessary Falls - Fallen four times in past two weeks, she reports falls due to being clumsy - Also reports knees have been bothering her from arthritis; walking with cane today - Duloxetine may contribute to dizziness and fall risk - Also on ambien chronically Plan: - Encourage patient to rise slowly from seated or lying position - Assess need for home safety evaluation - Reevaluate duloxetine dosage and necessity Depression and Anxiety - In good spirits, denies depression currently - Supportive living situation with michael Plan: - Continue Trintellix 10 mg daily - Continue monitoring mood - Continue duloxetine 60 mg twice daily for now; she does not wish to change at this time Follow-up in 4 weeks to assess response to new sleeping medication and overall well-being, sooner if concerns arise 03/25/2024 Other referral to the local chapter or national office of the Alzheimer's Association ( ; http://www.alz.org ), the Alzheimer's Disease Education and Referral Center (ADEAR) ( ; http://www.susan.nih .gov/Alzheimers/), Assessment and Plan: 1. Depression - Reports [...] stability. - Call if any concerns arrise 08/03/2024 Other Hope Rachel presents with ongoing sleep disturbances following discontinuation of long-term Ambien use, as well as increased anxiety. Insomnia Assessment: Patient recently discontinued Ambien after approximately 1.5 years of use due to concerning sleep behaviors, including an episode where she called the police without remembering. She reports difficulty falling asleep and waking every 2 hours. Current treatment with quetiapine 50 mg nightly for 6-7 nights has been insufficient. Sleep disturbances are likely due to Ambien withdrawal, as long-term use can lead to dependence and difficulty sleeping without the medication. Plan: - Increase quetiapine to 100 mg PO at bedtime - Follow up in 3 weeks to reassess sleep quality and discuss further interventions if needed - Patient educated on the need for time to allow body to adjust to medication changes Anxiety Assessment: Patient reports increased anxiety and has run out of anti-anxiety medication. Plan: - Refill hydroxyzine for as-needed use - Continue current medications: duloxetine 60 mg PO daily in the morning, Trintellix at night - Follow up in 3 weeks to reassess anxiety symptoms 09/16/2024 Other Hope Rachel, female patient with history of depression, psoriasis, and arthritis, presenting with persistent insomnia and memory concerns while undergoing chemotherapy. Insomnia Assessment: Patient reports difficulty staying asleep, waking around 1-2 AM and unable to fall back asleep. Sleep onset latency is approximately 30 minutes. Patient discontinued Ambien 2 months ago due to concerning side effects, including amnesia for nighttime activities. No improvement in sleep since discontinuation. Fatigue is significantly impacting mood and daily functioning. Previous trial of trazodone was initially effective but efficacy waned over time. Plan: - Initiate Lunesta 2 mg PO at bedtime - Explained Lunesta is similar to Ambien but milder and safer for long-term use - Informed patient of goal for short-term use (1-6 months) with potential tapering - Advised to take immediately before bed - Instructed to contact if insurance coverage issues arise - Follow-up telehealth visit in 4 weeks to assess efficacy and tolerability of Lunesta Depression Assessment: Patient reports fatigue significantly impacting mood. No current suicidal ideation; patient notes last occurrence was years ago when initially seeing Dr. Larson. At that time, patient had formulated a plan, recognizing it as a crisis. Currently on multiple psychotropic medications for mood management. Plan: - Continue current medication regimen: - Duloxetine 60 mg PO daily - Quetiapine 100 mg PO at bedtime - Trintellix 10 mg PO daily - Monitor for changes in mood with improvement in sleep Memory Concerns Assessment: Patient reports worsening memory, specifically difficulty remembering appointments without use of a calendar. This could be related to various factors including sleep disturbance, ongoing medical treatments, or medication side effects. Plan: - Continue to monitor memory concerns - Reassess at follow-up appointment after addressing sleep issues Anxiety Assessment: Patient has PRN medication for anxiety management. No acute anxiety concerns reported during this visit. Plan: - Continue Hydroxyzine 25 mg, 0.5 to 1 tablet PO twice daily as needed for anxiety Plan Of Treatment No Information Insurance Providers Payer Name Payer Address Payer Phone Subscriber Number Group Number Insured Name Patient Relationship to Insured Coverage Start Date Coverage End Date [employer] Medicare Replacement/ Advantage - [employer] [address] [address] [place] [phone] [id number] AHSAN HANEY Self - patient is the insured Medical (General) History Medical History History ICD Code Gastroesophageal reflux disease Generalized anxiety disorder History of total knee arthroplasty Hypertensive disorder Mild recurrent major depression Nicotine dependence Normal grief reaction Obesity Obstructive sleep apnea syndrome Primary insomnia Psoriasis Rheumatoid arthritis Smoker Surgical History Surgery Date(Month/Year) Breast surgery () Reconstructive surgery Other Any surgical history Hysterectomy (70423)
--- OUTSIDE RECORDS SUMMARY | 2024-12-29 08:33 | XMS_ITS | Patient Health Record ---
Author Organization [facility] Address [address] [place] [address] Care Team Providers Care Train Gate Attendant Name Role Phone Deborah BREEN, Jacki Primary Care Provider Un available Pamella Alonzo Unavailable [phone] Reason For Referral No Information Medications Medication [...] Omeprazole 20 milligrams po qd once a day; Duration: 30 *please review for potential update for [...] 100 milligrams @ HS 3 times a day; Duration: 30 *please review for potential update for e-prescription and drug interaction check* 07/04/2015 Active Plan Of Treatment No Information Insurance Providers Payer Name Payer Address Payer Phone Subscriber Number Group Number Insured Name Patient Relationship to Insured Coverage Start Date Coverage End Date [facility] [address] [place], [place] [id number] Karolina Ramos Self - patient is the insured [facility] [address] [address] [place] [address] [id number] Karolina Ramos Self - patient is the insured
--- OUTSIDE RECORDS SUMMARY | 2024-12-29 08:33 | XMS_ITS | Clinical Summary ---
Author Organization [facility] Address [address], [facility] [address] [place] [address] Phone Care Team Providers Care Clinching Machine Operator Name Role Phone Jacki Cabrera [...] by mouth daily. 7 Active nystatin (MYCOSTATIN) 782106 UNIT/GM Cream Apply 2 times daily as [...] on file Legal Sex Female 9:51 AM YOKER MACHINE OPERATOR Gender Identity Not on file Sexual Orientation Not on file Last Filed Vital Signs Vital Sign Reading Time Taken Comments Blood Pressure 158/90 04/12/2022 12:31 PM YOKER MACHINE OPERATOR Pulse 114 04/12/2022 12:31 PM YOKER MACHINE OPERATOR Temperature 36.5 C (97.7 F) 04/12/2022 12:31 PM YOKER MACHINE OPERATOR Respiratory Rate 16 04/12/2022 12:3 1 PM YOKER MACHINE OPERATOR Oxygen Saturation 95% 04/12/2022 12: 31 PM YOKER MACHINE OPERATOR Inhaled Oxygen Concentration - - Weight 114.5 kg (252 lb 6.4 oz) 022 12:31 PM YOKER MACHINE OPERATOR Height 172.7 cm (5' 8) 04/12/2022 12:3 1 PM YOKER MACHINE OPERATOR Body Mass Index 38.38 04/12/2022 12:31 PM YOKER MACHINE OPERATOR Plan of Treatment Health Maintenance Due Date Last Done Comments Hepatitis C Virus (HCV) Screening 1955 TdaP Immunization 1955 Cologuard 2002 Colonoscopy 2002 Colorectal Cancer Screening 2002 Immunochemical Fecal Occult Blood 2002 Respiratory Syncytial Virus (RSV) Immunization (Adult) (1 - Risk 60-74 years 1-dose series) 2017 SARS-COV-2 Immunization ( season) 2024 02/07/2022, 04/03/2021, 08/15/2020, Additional history exists Influenza Immunization (#1) 01/04/202509/2021, 02/08/2021, 02/16/2020, Additional history exists Pneumococcal Immunization (50+ years) (3 of 3 - PCV20 or PCV21) 04/03/2026 04/03/2021, 08/13/2006 Zoster Immunization Completed 04/30/2019, 9 Hepatitis B Immunization Aged Out No longer eligible based on patient's age to complete this topic Human Papillomavirus (HPV) Immunization Aged Out No longer eligible based on patient's age to complete this topic Meningococcal Immunization (ACWY) Aged Out No longer eligible based on patient's age to complete this topic Rotavirus Immunization Aged Out No lo nger eligible based on patient's age to complete this topic Insurance MEDICARE C [facility] [place]ICAID [place] Care Teams Clinching Machine Operator Relationship Specialty Start Date End Date Jacki Cabrera MD [address] [place] [address] PCP - General Internal Medicine 04/12/22
--- OUTSIDE RECORDS SUMMARY | 2024-12-29 08:34 | XMS_ITS | Encounter Summary ---
Author Organization [facility] Address [address] [place] [address] Care Team Providers Care Accounting Machine Operator Name Role Phone NormaFlynnSummer K RN Unavailable [phone] Jacki Cabrera MD Primary Care Provider Encounter Details Date Type Department Care Team (Late st Contact Info) Description 05/01/2023 Lab Requisition [facility] - Pathology Lab [address] [place] [id number] Vaughn Colnuga MD [address] [address] Illness, unspecified Social History Tobacco Use Types Packs/Day Years Used Date Smoking Tobacco: Every Day Cigarettes 0.5 19 Started: 02/17/1994; Last attempted to quit: 02/17/2013 Smokeless Tobacco: Never Comments:a couple cigarette s a day Alcohol Use [...] more drinks on one occasion? 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 Answer Date of Assessment Author No 03/22/2021 4:29 PM INTEGRITY ANALYST Gustavo Floyd RN * Is person blind or have serious difficulty seeing? Answer Date of Assessment Author No 03/22/2021 4:29 PM INTEGRITY ANALYST Gustavo Floyd RN * Does person have serious difficulty walking/climbing stairs? Answer Date of Assessment Author No 03/22/2021 4:29 PM INTEGRITY ANALYST Gustavo Floyd RN * Does person have difficulty dressing/bathing? Answer Date of Assessment Author No 03/22/2021 4:29 PM Gustavo Samainego RN * Does person have difficulty doing errands alone? Answer Date of Assessment Author No 03/22/2021 4:29 PM INTEGRITY ANALYST Gustavo Floyd RN documented as of this encounter Mental Status * Does person have difficulty concentrating/remembering/making decisions? Answer Entry Date Author No 03/22/2021 4:29 PM INTEGRITY ANALYST Gustavo Floyd RN documented in this encounter Plan of Treatment Not on file documented as of this encounter Procedures Procedure Name Priority Date/Time Associated Diagnosis Comments PATHOLOGY TISSUE Routine 04/26/2023 10:0 7 AM INTEGRITY ANALYST Illness, unspecified documented in this encounter Results * PATHOLOGY TISSUE (04/26/2023 10:07 AM INTEGRITY ANALYST) Case Report Surgical Pathology Report Case: [id number] Authorizing Provider: Luis Colunga MD Collected: 04/26/2023 10:07 AM Ordering Location: [facility] Pathology Lab Received: 05/01/2023 03:34 PM Pathologist: Chaya Walton MD Specimen: Slide Consultation, Lymph node 05/02/2023 10:40 AM [facility] PATH[facility] Final Diagnosis Lymph node, left axilla, needle core biopsy: - Follicular lymphoma, as sampled - See description 05/02/2023 10:40 AM [facility] PATHOLOGY LAB at 1040 INTEGRITY ANALYST Microscopic Description and Comment Sections demonstrate thin cores of lymphoid tissue with a vaguely nodular architecture. No germinal centers are present, but rather, the majority of cells are small and slightly cleaved/irregular. No necrosis or significant large cell infiltrate is present in the sampled tissue. To evaluate the immunoarchitecture, immunohistochemistry is performed at the [facility] Department of Pathology. The nodular areas consist of germinal center B-cells that express CD10, BCL-6, and CD20. These cells show aberrant co-expression of BCL-2. CD21 highlights that these cells are mostly localized in follicular dendritic cell meshworks. CD3 shows admixed small T-cells. Controls are appropriately reactive. Per report, flow cytometry ([facility], [address], [address], [place], [address]) shows 8% LL01-vakopygs monoclonal B-cells (lambda light chain-restricted). In summary, this sampling of the left axillary lymph node shows involvement by follicular lymphoma. Grading of follicular lymphoma is recommended to be performed on an excisional biopsy specimen. Clinical correlation is advised. 05/02/2023 10:40 AM [facility] PATH[facility] Clinical History 68 year old woman with FDG avid left axillary lymph nodes. 05/02/2023 10:40 AM [facility] Materials Received Received are 3 slides and 1 block labeled [id number] along with a copy of the outside pathology report. [place] [address]. All original materials are returned to the referring institution, along with a copy of our final report. 05/02/2023 10:40 AM [facility] PATH[facility] Pathologist Location at [facility] 05/02/2023 10:40 AM [facility] PATH[facility] Disclaimer The performance characteristics of all immunohistochemical and indirect immunofluorescence stains (if any) cited in this report were determined by the Histopathology Laboratory of [facility]. Some of these tests were developed [...] the attending (teaching) pathologist. 05/02/2023 10:40 AM INTEGRITY ANALYST [facility] PATHOLOGY LAB Embedded Images 05/02/2023 10:40 AM INTEGRITY ANALYST [facility] PATHOLOGY LAB Pathology/Cytolo gy SURGICAL PATHOLOGY CONSULTATION AND REPORT ON REFERRED SLIDES PREPARED ELSEWHERE / Unknown 04/26/2023 10:07 AM INTEGRITY ANALYST 05/01/2023 3:34 PM INTEGRITY ANALYST Vaughn Colunga MD LAB - PATHOLOGY/CYT OLOGY ORDERABLES Final Result [facility]OLOGY LAB [address] [phone] documented in this encounter Visit Diagnoses Diagnosis Illness, unspecified documented in this encounter Additional Health Concerns Infection Onset Date Last Indicated Resolved Time MRSA Hx 03/16/2021 03/16/2021 documented as of this encounter Care Teams Accounting Machine Operator Relationship Specialty Start Date End Date Jacki Cabrera MD PCP - General Internal Medicine 11/04/14 Summer Green RN Route Carrier 11/03/14 documented as of this encounter
--- OUTSIDE RECORDS SUMMARY | 2024-12-29 08:34 | XMS_ITS | Patient Health Record ---
Author Organization [facility] Address [address] [place] [address] Care Team Providers Care Manager Of School Name Role Phone Lee Tomas Unavailable [phone] Reason For Referral No Information Medications Medication SIG (Take, Route, Frequency, Duration) Notes Start Date End Date Status Potassium Chloride ER 20 MEQ Take 1 tablet by mouth twice daily; Duration: 90 Active Dapagliflozin Propanediol 5 MG Take 1 tablet by mouth once daily; Duration: 90 Active Ergocalciferol 1.25 MG (19853 UT) 1 capsule Orally Once a week; Duration: 90 day(s) 04/09/2024 01/04/2025 Active Losartan Potassium 25 MG Take 1 tablet b y mouth once daily; Duration: 90 Active Losartan Potassium 50 MG 1 tablet Orally Once a day; Duration: 90 days 07/06/2024 Active Calcitriol 0.25 MCG Take 1 capsule by mo uth once daily; Duration: 90 Active Social History Sex Assigned At : Social History Observation Description Sex Assigned At Female Problems Problem Type SNOMED Code ICD Code Onset Dates Problem Status W/U Status Risk Notes Problem Hyperglycemia due to type 2 diabetes mellitus (228776649119933) Type 2 diabetes mellitus with hyperglycemia (E11.65) Active confirmed Problem Secondary hyperparathyroidism (32014089) Secondary hyperparathyroid ism, not elsewhere classified (E21.1) Active confirmed Problem Vitamin D deficiency (59840726) Vitamin D deficiency, unspecified (E55.9) Active confirmed Problem Chronic kidney disease stage 2 (519812671) Chronic kidney disease, stage 2 (mild) (N18.2) Active confirmed Problem Renal osteodystrophy (06467056) Renal osteodystrophy (N25.0) Active confirmed Problem Essential hypertension (98958924) Essential hypertension (I10) Active confirmed Problem Abnormal metabolic state due to diabetes mellitus (093144976) Abnormal metabolic state due to diabetes mellitus (E11.9) Active confirmed Encounters Encounter Location Date Provider Diagnosis [place] [facility] [address] [address] 03/25/2024 Lee Tomas Chronic kidney disea se, stage 2 (mild) N18.2 ; Essential hypertension I10 ; Abnormal metabolic state due to diabetes mellitus E11.9 ; Renal osteodystrophy N25.0 ; Secondary hyperparathyroidism, not elsewhere classified E21.1 and Type 2 diabetes mellitus with hyperglycemia E11.65 [facility] [place] [facility] [address] [place] [address] 04/08/2024 Lee Tomas Chronic kidney disea se, stage 2 (mild) N18.2 ; Type 2 diabetes mellitus with hyperglycemia E11.65 ; Essential hypertension I10 ; Abnormal metabolic state due to diabetes mellitus E11.9 ; Renal osteodystrophy N25.0 and Secondary hyperparathyroidism, not elsewhere classified E21.1 [place] [facility] [address] [address] 06/12/2024 Lee Tomas Chronic kidney disea se, stage 2 (mild) N18.2 ; Essential hypertension I10 ; Abnormal metabolic state due to diabetes mellitus E11.9 ; Renal osteodystrophy N25.0 ; Secondary hyperparathyroidism, not elsewhere classified E21.1 ; Type 2 diabetes mellitus with hyperglycemia E11.65 and Elevation of levels of liver transaminase levels R74.01 [place] [facility] [address] [address] 08/21/2024 Lee Tomas Chronic kidney disea se, stage 2 (mild) N18.2 ; Essential hypertension I10 ; Abnormal metabolic state due to diabetes mellitus E11.9 ; Renal osteodystrophy N25.0 ; Secondary hyperparathyroidism, not elsewhere classified E21.1 ; Type 2 diabetes mellitus with hyperglycemia E11.65 and Vitamin D deficiency, unspecified E55.9 [place] [facility] [address] [address] 04/09/2024 Lee [facility] [address] [address] 04/09/2024 Lee [facility] [address] [address] 04/09/2024 Lee [facility] [address] [place] [address] 07/06/2024 Lee Tomas [facility] [place] [facility] [address] [place] [address] 08/21/2024 Lee Tomas [facility] [place] [facility] [address] [place] [address] 01/01/2024 Lee Tomas Assessments Encounter Date Diagnosis (ICD Code) Assessment Notes Treatment Notes Treatment Clinical Notes Section Notes 03/25/2024 Chronic kidney disease, stage 2 (mild) (ICD-10 - N18.2) 04/08/2024 Type 2 diabetes mellitus with hyperglycemia (ICD-10 - E11.65) 04/08/2024 Chronic kidney disease, stage 2 (mild) (ICD-10 - N18.2) 06/12/2024 Chronic kidney disease, stage 2 (mild) (ICD-10 - N18.2) 06/12/2024 Essential hypertension (ICD-10 - I10) 08/21/2024 Chronic kidney disease, stage 2 (mild) (ICD-10 - N18.2) 08/21/2024 Essential hypertension (ICD-10 - I10) 08/21/2024 Abnormal metabolic state due to diabetes mellitus (ICD-10 - E11.9) 06/12/2024 Abnormal metabolic state due to diabetes mellitus (ICD-10 - E11.9) 04/08/2024 Essential hypertension (ICD-10 - I10) 03/25/2024 Essential hypertension (ICD-10 - I10) 03/25/2024 Abnormal metabolic state due to diabetes mellitus (ICD-10 - E11.9) 04/08/2024 Abnormal metabolic state due to diabetes mellitus (ICD-10 - E11.9) 06/12/2024 Renal osteodystrophy (ICD-10 - N25.0) 08/21/2024 Renal osteodystrophy (ICD-10 - N25.0) 06/12/2024 Secondary hyperparathyroidism , not elsewhere classified (ICD-10 - E21.1) 08/21/2024 Secondary hyperparathyroidism , not elsewhere classified (ICD-10 - E21.1) 04/08/2024 Renal osteodystrophy (ICD-10 - N25.0) 03/25/2024 Renal osteodystrophy (ICD-10 - N25.0) 03/25/2024 Secondary hyperparathyroidism , not elsewhere classified (ICD-10 - E21.1) 04/08/2024 Secondary hyperparathyroidism , not elsewhere classified (ICD-10 - E21.1) 06/12/2024 Type 2 diabetes mellitus with hyperglycemia (ICD-10 - E11.65) 08/21/2024 Type 2 diabetes mellitus with hyperglycemia (ICD-10 - E11.65) 08/21/2024 Vitamin D deficiency, unspecified (ICD-10 - E55.9) 06/12/2024 Elevation of levels of liver transaminase levels (ICD-10 - R74.01) 03/25/2024 Type 2 diabetes mellitus with hyperglycemia (ICD-10 - E11.65) Plan Of Treatment No Information
--- OUTSIDE RECORDS SUMMARY | 2024-12-29 08:34 | XMS_ITS | Clinical Summary ---
Author Organization [facility] Address [address] [place] [address] Care Team Providers Care Bench Hand Machine Name Role Phone Jacki Cabrera MD Primary Care Provider Allergies Active Allergy Reactions Criticality Noted Date Comments Metformin Nausea and Vomiting Low 06/05/2019 Penicillins Rash,Shortness of Breath/Wheezing High 0 12/12/2007 Medications DULoxetine (CYMBALTA) 60 mg Capsule, Delayed Release(E.C.) Take 60 mg by mouth. 12/17/19 19 Active gabapentin (NEURONTIN) 600 mg tablet 600 mg. 12/11/19 17 Active omeprazole (PriLOSEC) 20 mg Capsule, Delayed Release(E.C.) 20 mg. 10/22/19 17 Active folic acid (FOLVITE) 1 mg tablet Take 1 mg by mouth. Active predniSONE (DELTASONE) 5 mg tablet 5 mg. 01/19/20 18 Active ergocalciferol (VITAMIN D2) 2,000 unit Tablet tablet Take 50,000 Units by mouth every 7 days. Active methotrexate (RHEUMATREX) 2.5 mg Tablet Take 2.5 mg by mouth every 7 days. Active lovastatin (MEVACOR) 20 mg tablet Take 20 mg by mouth. 10/11/19 19 Active HYDROcodone-keena taminophen (HYCET) 7.5-325 mg/15 mL Solution 15 mL. 11/08/19 15 Active baclofen (LIORESAL) 10 mg tablet Take 10 mg by mouth. 11/14/19 18 Active albuterol sulfate HFA 90 mcg/actuation aerosol inhaler Take 2 Puffs by inhalation. Active calcitRIOL (ROCALTROL) 0.25 mcg capsule Take 0.25 mcg by mouth daily. 03/22/20 Active escitalopram oxalate (LEXAPRO) 20 mg tablet Take 20 mg by mouth daily. 02/06/20 22 Active fluticasone propionate (FLONASE) 50 mcg/spray [place], Suspension nasal inhaler Administer 1-2 Sprays in each nostril daily. Active nystatin (MYCOSTATIN) 100,000 unit/gram Cream Apply to affected area. Active semaglutide (Ozempic) 0.25 mg or 0.5 mg(2 mg/1.5 mL) Pen Injector Inject 0.5 mg by subcutaneous injection every 7 days. 04/06/20 22 Active sulfaSALAzine (AZULFIDINE) 500 mg tablet Take 500 mg by mouth 2 times daily. 03/22/20 Active QUEtiapine (SEROquel) 100 mg tablet Take 100 mg by mouth. 04/08/20 22 Active ixekizumab (Taltz Autoinjector) 80 mg/mL Auto-Injector 80 mg every 30 days. 04/12/20 22 Active lidocaine-prilo jerald (EMLA) 2.5-2.5 % CreamIndication s:Follicular lymphoma, unspecified follicular lymphoma type, unspecified body region (CMS/HCC) Apply to affected area see administration instructions. 30 Gram 1 06/18/19 24 Active Jardiance 10 mg tablet Take 10 mg by mouth daily. 08/06/19 25 Active ondansetron (ZOFRAN ODT) 8 mg Tablet, Rapid DissolveIndicat ions:Follicular lymphoma, unspecified follicular lymphoma type, unspecified body region (CMS/HCC) Dissolve 1 tablet on top of tongue then swallow with saliva every 8 hours as needed for nausea or vomiting 30 Tablet 1 11/11/19 25 Active Active Problems Problem Noted Date Diagnosed Date Tobacco use 01/06/2019 Encounters Date Type Department Care Team Description 12/21/2024 Orders Only [facility] On[facility] and H[facility]ology - [place] [address] [place] [address] Venkatesh Bolanos MD Follicular lymphoma, unspecified follicular lymphoma type, unspecified body region (CMS/HCC) 12/08/2024 External Device Data STL ABSTRACTION Provider, Abstract 12/07/2024 Orders Only [facility] On[facility] and H[facility]ology - [place] [address] Venkatesh Bolanos MD Follicular lymphoma, unspecified follicular lymphoma type, unspecified body region (CMS/HCC) 11/23/2024 Orders Only [facility] On[facility] and Hematology - [place] [address] [place] [address] Venkatesh Bolanos MD Follicular lymphoma, unspecified follicular lymphoma type, unspecified body region (CMS/HCC) 11/18/2024 External Device Data STL ABSTRACTION Provider, Abstract 11/18/2024 External Device Data STL ABSTRACTION Provider, Abstract 11/10/2024 9:00 AM CDT Office Visit [facility] On[facility] and Hematology - [place] [address] [place] [id number] Venkatesh Bolanos MD Follicular lymphoma, unspecified follicular lymphoma type, unspecified body region (CMS/HCC) (Primary Dx) 11/09/2024 Orders Only [facility] On[facility] and Hematology [facility] [address] Venkatesh Bolanos MD Follicular lymphoma, unspecified follicular lymphoma type, unspecified body region (CMS/HCC) 10/27/2024 External Device Data STL ABSTRACTION Provider, Abstract 10/26/2024 Orders Only [facility] H[facility]ology [place] [address] Venkatesh Bolanos MD Follicular lymphoma, unspecified follicular lymphoma type, unspecified body region (CMS/HCC) 10/12/2024 Orders Only [facility] On[facility] and Hematology - [place] [id number] Venkatesh Bolanos MD Follicular lymphoma, unspecified follicular lymphoma type, unspecified body region (CMS/HCC) 09/28/2024 Orders Only [facility] On[facility] and Hematology - [place] [address] Venkatesh Bolanos MD Follicular lymphoma, unspecified follicular lymphoma type, unspecified body region (CMS/HCC) from Last 3 Months Family History Medical [...] Date Smoking Tobacco: Every Day Cigarettes 0.3 1.4 Started: 08/05/2023 Smokeless Tobacco: Never Tobacco Cessation:Ready to Q uit: Not Asked; Counseling Given: Not Answered Alcohol Use Standard Drinks/Week Comments Yes 0 (1 standard drink = 0.6 oz pur e alcohol) socially Comments No Sex and Gender Information Value Date Recorded Sex Assigned at Not on file Legal Sex Female 9:08 AM CDT Gender Identity Not on file Sexual Orientation Not on file Last Filed Vital Signs Vital Sign Reading Time Taken Comments Blood Pressure 133/84 11/10/2024 9:04 AM CDT Pulse 77 11/10/2024 9:04 AM CDT Temperature 36.4 C (97.6 F) 11/10/2024 9:04 AM CDT Respiratory Rate 15 11/10/2024 9:04 AM CDT Oxygen Saturation 92% 11/10/2024 9:04 AM CDT Inhaled Oxygen Concentration - - Weight 101.5 kg (223 lb 12.8 oz) 11/10/2024 9:04 AM CDT Height 172.7 cm (5' 8) 04/02/2023 1:37 PM FOOD AND BEVERAGE DIRECTOR Body Mass Index 34.03 04/02/2023 1:37 PM FOOD AND BEVERAGE DIRECTOR Plan of Treatment Upcoming Encounters Date Type Department Care Team (Late st Contact Info) Description 01/05/2025 9:00 AM CDT Office Visit [facility] On[facility] and Hematology - [place] [address] [place] [address] Delia Rios MD [address] [place] [address] Health Maintenance Due Date Last [...] DIABETES HBA1C Q 6 MONTHS 09/16/2021 03/19/2021 COVID-19 Vaccine (2023-2 5 season) 2024 04/06/2023, 02/07/2022, 04/03/2021, Additional history exists INFLUENZA VACCINE (#1) 2024 , 2023, 02/07/2022, Additional history exists OSTEOPOROSIS SCREENING 04/07/2026 04/07/2021 DTAP/TDAP/TD VACCINES (2 - T d or Tdap) 11/21/2033 11/22/2023 ZOSTER VACCINE Completed 04/30/2019, 02/22/2019 PNEUMOCOCCAL VACCINE 50+ YEARS Completed 0 09/10/2022, 04/03/2021, 08/13/2006 Additional Health Concerns Infection Onset Date Last Indicated R/O C. diff 08/28/2024 08/28/2024 Insurance Care Teams Bench Hand Machine Relationship Specialty Start Date End Date Jacki Cabrera MD PCP - General Internal Medicine 01/06/19
--- OUTSIDE RECORDS SUMMARY | 2024-12-29 08:34 | XMS_ITS | Clinical Summary ---
Author Organization [facility] Address [address] [place] [address] Care Team Providers Care Manager Of Supply Chain Name Role Phone Summer Green RN Unavailable [phone] Jacki Cabrera MD Primary Care Provider Source Comments [facility],non-owned Affiliates and Associated Physician Practices is amultiple site organization consisting of ambulatory clinics and hospital sitesin [place], [place], [place] and [place]. This disclosure is being madepursuant to the Care Everywhere program and may not contain all information available regarding this patient. Last updated 18.[facility] Allergies Active Allergy Reactions Criticality Noted Date Comments Povidone Iodine Rash Medium 03/18/2021 Metformin Nausea and/or Vomiting 06/05/2019 Penicillins Shortness of Breath,Rash,Unknown High Medications * Be aware that medications may not be up to date on this document. Alwaysverify current medications with the patient. clobetasol (TEMOVATE) 0.05 % gel Apply to affected area as needed Active folic acid (FOLVITE) 1 MG tablet Take 1 mg by mouth once daily Active multivitamin with iron (ONE A DAY WITH IRON) tablet Take 1 Tab by mouth once daily Active TALTZ 80 MG/ML auto-injector pen 1 Dose 9 Active NARCAN 4 MG/0.1ML nasal spray SYBIL REP ALN 0 Active oxyCODONE, immediate release, (ROXICODONE) 5 MG tablet Take 1 (one) tablet by mouth every 4 hours as needed 12 tablet 1 Active acetaminophen (TYLENOL) 325 MG tablet Take 2 (two) tablets by mouth every 6 hours as needed Maximum allowable Acetaminophen amount = 4 Grams (4000 mg) / 24 hours. 1 Active cyclobenzaprin e (FLEXERIL) 10 MG tablet Take 1 (one) tablet by mouth 2 times daily as needed 60 tablet 1 Active nicotine (NICODERM CQ) 14 MG/24HR patch Apply 1 (one) patch to skin once daily 14 patch 1 Active Additional Information Patient not taking.Reported on 04/03/2021 simvastatin (ZOCOR) 10 MG tablet Take 1 (one) tablet by mouth at bedtime 30 tablet 1 Active Additional Information Patient not taking.Reported on 04/03/2021 lisinopril-hyd roCHLOROthiazi de (PRINZIDE; ZESTORETIC) 20-25 MG tablet Take 1 (one) tablet by mouth once daily 30 tablet 1 Active polyethylene glycol 3350 (MIRALAX) 17 g packet Take 17 (seventeen) g by mouth once daily 30 packet 1 Active Additional Information Patient not taking.Reported on 04/03/2021 senna (SENOKOT) 8.6 MG tablet Take 1 (one) tablet by mouth once daily 30 tablet 1 Active busPIRone (BUSPAR) 5 MG tablet Take 1 (one) tablet by mouth 2 times daily 60 tablet 1 Active gabapentin (NEURONTIN) 600 MG tablet Take 1 (one) tablet by mouth 3 times daily 90 tablet 1 Active DULoxetine (CYMBALTA) 60 MG capsule Take 1 (one) capsule by mouth 2 times daily 60 capsule 1 Active escitalopram (LEXAPRO) 10 MG tablet Take 1 (one) tablet by mouth once daily 30 tablet 1 Active traZODone (DESYREL) 100 MG tablet Take 2 (two) tablets by mouth at bedtime 30 tablet 1 Active sulfaSALAzine (AZULFIDINE) 500 MG tablet Take 1 (one) tablet by mouth 2 times daily 60 tablet 1 Active calcitriol (ROCALTROL) 0.25 MCG capsule Take 1 (one) capsule by mouth once daily 30 capsule 1 Active baclofen (LIORESAL) 10 MG tablet Take 1 (one) tablet by mouth at bedtime 30 tablet 1 Active omeprazole (PRILOSEC) 20 MG capsule Take 1 (one) capsule by mouth at bedtime 30 capsule 1 Active Ergocalciferol (VITAMIN D2) 50 MCG (2000 UT) Take 50,000 Units by mouth every 7 days 10 tablet 1 Active prochlorperazi ne (COMPAZINE) 5 MG tablet Take 1 (one) tablet by mouth every 6 hours as needed for Nausea/Vomiting 10 tablet 1 Active Additional Information Patient not taking.Reported on 04/03/2021 lovastatin (MEVACOR) 20 MG tablet 1 Active XTAMPZA ER 18 MG capsule 1 Active methotrexate (RHEUMATREX) 2.5 MG tablet 1 Active Active Problems Problem Noted Date Diagnosed [...] hyst Chronic bilateral low back pain Immunizations Immunization Administration Dates Next Due INFLUENZA VACCINE, TRIV. 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 file Not on file Not on file Last Filed Vital Signs Vital Sign Reading Time Taken Comments Blood Pressure 151/91 04/03/2021 11:22 AM SOA ARCHITECT Pulse 116 04/03/2021 11:22 AM SOA ARCHITECT Temperature 36.8 C (98.2 F) 03/22/2021 8:21 AM SOA ARCHITECT Respiratory Rate 18 03/22/2021 8:21 AM SOA ARCHITECT Oxygen Saturation 96% 04/03/2021 11:22 AM SOA ARCHITECT Inhaled Oxygen Concentration 100% 05/28/2008 1 :51 PM SOA ARCHITECT Weight 118.8 kg (262 lb) 04/03/2021 11:22 AM SOA ARCHITECT Height 172.7 cm (5' 8) 04/03/2021 11:22 AM SOA ARCHITECT Body Mass Index 39.84 04/03/2021 11:22 AM SOA ARCHITECT Plan of Treatment Health Maintenance Due Date Last Done Comments BONE DENSITY TESTING 1955 COLOGUARD (AGES 45-75) - COLON CA SCREENING 1957 COLON MONITORING 1957 COLONOSCOPY - COLON CA SCREENING 1957 CT COLONOGRAPHY - COLON CA SCREENING 1957 Colorectal Cancer Screening 1957 FIT - COLON CA SCREENING 1957 FLEX SIG - COLON CA SCREENING 1957 MAMMOGRAM 1957 HEPATITIS C SCREENING 03/19/1975 ZOSTER VACCINE (1 of 2) 2007 PNEUMOCOCCAL VACCINE 50+ (2 of 2 - PCV) 08/14/2007 08/13/2006 DTAP/TDAP/TD VACCINES (2 - Tdap) 04/23/2012 04/23/2002 COVID-19 VACCINE (3 - season) 2024 04/03/2021, 08/15/2020 SCREENING FOR DIABETES 03/20/2024 , 03/19/2021, 03/19/2021, Additional history exists DEPRESSION SCREENING 05/06/2024 MEDICARE AWV CALENDAR YEAR 2024 INFLUENZA VACCINE (#1) 2025 , 02/16/2020, 02/22/2019, Additional history exists Respiratory Syncytial Virus (RSV) Vaccine Pt: or over 60 yrs (1 - 1-dose 75+ series) 2032 HEPATITIS B VACCINE Aged Out No longe r eligible based on patient's age to complete this topic HIB VACCINE Aged Out No longer eligi ble based on patient's age to complete this topic HPV VACCINE Aged Out No longer eligi ble based on patient's age to complete this topic MENINGOCOCCAL (Group B) VACCINE SHARED DECISION-MAKING Aged Out No longer eligible based on patient's age to complete this topic MENINGOCOCCAL GROUPS A/C/Y/W VACCINE Aged Out No longer eligible based on patient's age to complete this topic Medical Devices Implanted Type Area Worksite Wellness Practitioner Device Identifier Shelf Expiration Date Model / Serial / Lot Elliott Bone Palacos Sgl 1 X 40 Implanted:Qt y: 2 on 11/03/2014 by Marcus Hernandez MD at [facility] Right: Knee [employer] 01/04/2018 [id number] / / [id number] Size 5 Right A/P 62mm, M/L 70mm Legion Hk Femoral Assembly Implanted:Qt y: 1 on 11/03/2014 by Marcus Hernandez MD at [facility] Right: Knee 02/03/2021 [id number] / / [id number] Elliott Bone Palacos R Implanted:Qt y: 2 on 11/03/2014 by Marcus Hernandez MD at [facility] Right: Knee [employer] 05/06/2019 [id number] / / [id number] Legion Hk Hinge Knee Tibial Baseplate Implanted:Qt y: 1 on 11/03/2014 by Marcus Hernandez MD at [facility] Right: Knee 01/04/2023 [id number] / / [id number] 18mm [place] And Sleeve Kit Implanted:Qt y: 1 on 11/03/2014 by Marcus Hernandez MD at [facility] Right: Knee 01/04/2022 [id number] / / [id number] Size 4-5 Right 18mm Locking Screw Included Legion Hk Guided Motion Articular Insert Implanted:Qt y: 1 on 11/03/2014 by Marcus Hernandez MD at [facility] Right: Knee 11/03/2020 [id number] / / [id number] Straight 14mm X 160mm Legion Pressfit Stem Implanted:Qt y: 1 on 11/03/2014 by Marcus Hernandez MD at [facility] Right: Knee 09/03/2024 [id number] / / [id number] 5mm Size 5 Legion Hk Implanted:Qt y: 1 on 11/03/2014 by Marcus Hernandez MD at [facility] Right: Knee 08/05/2023 [id number] / / [id number] Straight 18mm X 160mm Legion Pressfit Stem Implanted:Qt y: 1 on 11/03/2014 by Marcus Hernandez MD at [facility] Right: Knee 05/06/2024 [id number] / / [id number] 10mm Size 5 Legion Hk Implanted:Qt y: 1 on 11/03/2014 by Marcus Hernandez MD at [facility] Right: Knee 05/06/2023 [id number] / / [id number] Lead Nrstm 60cm Penta 3mm Pdl 16 nl - [id number] Implanted:Qt y: 1 on 03/16/2021 by William Hammonds MD at [facility] Spine Thoracic [employer] 09/23/2022 [id number] / [id number] / Slnt Dura Duraseal Pg Trilysine Amine 5 Implanted:Qt y: 1 on 03/16/2021 by William Hammonds MD at [facility] Thoracic [employer] Joel [id number] / / [id number] Description:BRIE Cable Nrstm Multilead Trl - [id number] Implanted:Qt y: 1 on 03/16/2021 by William Hammonds MD at [facility] Thoracic [employer] Sp[employer] 11/02/2022 [id number] / [id number] / Description:BRIE Gntr Nrstm 1.95inx2.19i n Proclaim Elt - [id number] Implanted:Qt y: 1 on 03/16/2021 by William Hammonds MD at [facility] Thoracic [employer] 02/14/2023 [id number] / [id number] / Description:BRIE Procedures Procedure Name Priority Date/Time Associated Diagnosis Comments BASIC METABOLIC PANEL (CALCIUM TOTAL) STAT 03/20/2021 2:53 AM SOA ARCHITECT Acute midline thoracic back pain from Last 3 Months or Most Recently Relevant to Health Maintenance Results * (ABNORMAL) BASIC METABOLIC PANEL (CALCIUM TOTAL) (03/20/2021 2:53 AM [facility]) BUN 10 7 - 26 mg/dL 03/20/2021 3:21 AM [facility] Creatinine 0.65 0.56 - 0.96 mg/dL 03/20/2021 3:21 AM [facility] Sodium 142 136 - 145 mmol/L 03/20/2021 3:21 AM [facility] Potassium 3.9 3.5 - 4.5 mmol/L 03/20/2021 3:21 AM [facility] Chloride 104 98 - 107 mmol/L 03/20/2021 3:21 AM [facility] CO2 28 22 - 29 mmol/L 03/20/2021 3:21 AM [facility] Glucose 153(H) 70 - 115 mg/dL 03/20/2021 3:21 AM [facility] Calcium 10.9(H) 8.4 - 10.2 mg/dL 03/20/2021 3:21 AM [facility] Anion Gap 14 8 - 18 03/20/2021 3:21 AM [facility] BUN/Creatinine Ratio 15 7 - 23 03/20/2021 3:21 AM [facility] Osmolality Calculated 296 270 - 300 mOsm/kg 03/20/2021 3:21 AM [facility] eGFR by CKD-EPI >90 >=90 mL/min/1.7 3 m2 03/20/2021 3:21 AM [facility] Blood BLOOD SPECIMEN / Unknown Venipuncture / Unknown 03/20/2021 2:53 AM SOA ARCHITECT 03/20/2021 2:56 AM [facility] us Reji Heller MD LAB - CHEMISTRY ORDERABLE S Final Result [facility] [address] [place] [id number], [facility] [phone] from Last 3 Months or Most Recently Relevant to Health Maintenance Additional Health Concerns Infection Onset Date Last Indicated MRSA Hx 03/16/2021 03/16/2021 Insurance MEDICAID - [place] MEDICARE MEDICAID - OUT OF STATE [employer] MANAGED MEDICARE ADV SELF PAY NO INSURANCE Member Subscriber Plan / Payer (Ef fective for All Dates) Name:Karolina Ramos Member ID:Not on file Relation to Subscriber:Not on file Name:KAROLINA RAMOS Subscriber ID:Not on file Address: [address] [place] [address] Payer ID:Not on file Group ID:Not on file Type:Self Pay Address: [facility] MANAGED MEDICARE ADV SELF PAY NO INSURANCE Member Subscriber Plan / Payer (Ef fective for All Dates) Name:Karolina Ramos Member ID:Not on file Relation to Subscriber:Not on file Name:KAROLINA RAMOS Subscriber ID:Not on file Address: [address] [place] [address] Payer ID:Not on file Group ID:Not on file Type:Self Pay Address: [facility] MANAGED MEDICARE ADV SELF PAY NO INSURANCE Member Subscriber Plan / Payer (Ef fective for All Dates) Name:Karolina Ramos Member ID:Not on file Relation to Subscriber:Not on file Name:KAROLINA RAMOS Subscriber ID:Not on file Address: [address] [place] [address] Payer ID:Not on file Group ID:Not on file Type:Self Pay Address: [facility] MANAGED MEDICARE ADV Advance Directives Documents on File Type Date 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
[2024-12-29 08:47] LABS: Estimated Glomerular Filt Rate > 60
== END 2024-12-29 08:26 | disposition home or self-care (01) ==
PROVIDERS: PCP Internal Medicine; Visit Provider Internal Medicine Hematology & Oncology
DX: C82.90 Follicular lymphoma, unspecified, unspecified site (principal)
CPT/HCPCS: 71260; 74177; Q9967

== ENCOUNTER 2025-01-25 01:49 | Day surgery (SDC) | payer MEDICARE, MEDICAID, SELFPAY ==
--- OUTSIDE RECORDS SUMMARY | 2014-12-28 05:00 | XMS_ITS | Continuity of Care Document ---
Author Organization [facility] Address [address] [facility] [address] [place] [address] Phone Care Team Providers Care Sleep Technologist Name Role Phone Marcus Hernandez MD Unavailable Unavailable Allergies, Adverse Reactions, Alerts Substance Reaction Status Criticality Penicillins Unknown Active No Information Medications Medication Instructions Dosage Effective Dates (start - stop) Status Comments EFFEXOR XR (unknown strength) Not Available - Active GELNIQUE (unknown strength) Not Available - Active Vivlodex (unknown strength) Not Available - Active ATIVAN (unknown strength) inject 1 milliliter by intravenous route 30 minutes before chemotherapy Not Available - Active GABAPENTIN (unknown strength) Not Available - Active FELODIPINE ER (unknown strength) Not Available - Active Generess Fe (unknown strength) Not Available - Active LASIX (unknown strength) Not Available - Active TRADJENTA (unknown strength) Not Available - Active Advance Directives Directive Yes / No Effective Date File Name No Information Encounters Encounter Description Practice Location Reason(s) For Visit Diagnoses Date Provider Providers Copied on Encounter [facility], [address] [facility] [address], [address], [place] tel:[phone] [facility] [place] Knee joint replacementPost Op joint replacement 5 Mary Velazquez. [address] [place], [place], [id number] . tel:[phone] [facility], [address] [facility] [address], [place], [address], [place] tel:[phone] [facility] [place] Post Op joint replacementKnee joint replacement 5 Mary Velazquez. [address] [place], [place], [id number] . tel: [phone] [facility], [address] [facility] [facility], [place], [address], [place] tel:[phone] [facility] [place] Knee joint replacementPost Op joint replacement 5 Mary Velazquez. [address] [place], [place], [id number] . tel: [phone] [facility], [address], [place], [address], [place] tel:[phone] [facility] [place] Osteoarthrosis, localized, not specified whether primary or secondary, involving lower legEffusion of lower leg joint 5 Pamsong Velazquez. [address] [place], [place], [id number] . tel: [phone] [facility], [address] [facility], [place], [address], [place] tel:[phone] [facility] [place] Osteoarthrosis, localized, not specified whether primary or secondary, involving lower leg 4 Pamsong Velazquez. [address] [place], [place], [id number] . tel: [phone] [facility], [address] [facility], [place], [address], [place] tel:[phone] [facility] [place] Post Op joint replacementKnee joint replacement 2 Pamsong Velazquez. [address] [place], [place], [id number] . tel: [phone] [facility], [address] [facility], [place], [address], [place] tel:[phone] [facility] [place] Pain in joint involving lower legContusion of knee Fe 2 Pamsong Velazquez. [address] [place], [place], [id number] . tel: [phone] Family History Family Member Type Diagnosis Age At Onset No Information Payers Payer name Insurance type Covered alliance party ID Authoriza tion(s) No Information Social History Type Description Quantity Date Captured Comments Sex Female Smoking Status No Information Chief Complaint And Reason For Visit No Information Reason For Referral Reason For Referral No Information History Of Present Illness Encounter Date Complaint History Of Prese nt Illness No Information Functional Status Date Functional Assessmen t No Information Instructions Date Instruction Additional Infor mation No Information Assessments Type Assessment Date No Information Patient Care Teams Name Effective Dates (start - stop) Status Members No Information
--- OUTSIDE RECORDS SUMMARY | 2024-01-10 06:30 | XMS_ITS ---
Author Organization [facility] Address [address] [place] [address] Care Team Providers Care Emergency Dept Tech Name Role Phone Deborah BREEN, Jacki Primary Care Provider Un available Pamella Alonzo Unavailable [phone] REASON FOR VISIT callus, neuropathy Encounters Encounter Location Date Provider Diagnosis [place] [facility] [address] [phone] 01/10/2024 Pamella Alonzo Plan Of Treatment Next Appt Details Provider Name:Pamella Erickson tock, 01/29/2025 11:00:00 AM, [address] [address], [place], [place], [phone], Progress Notes * Karolina RAMOS LDOB: (69 yo F)Acc No.[id number]:01/10/2024 Progress Notes Patient: Karolina NAJERA Provider: Marv Alonzo DPM, DABPM :1955 A ge:68 Y S ex:Female Date:01/10/2024 Address:[address] [place], [place] [id number] Pcp:Jacki Cabrera MD Subjective: * Chief Complaints: * 1 . Callus, neuropathy. * Medical History: Objective: * Vitals: Assessment: Plan: * Treatment: * Billing Information: * Visit Code: * Procedure Codes: * Electronic signature of Nishi Alonzo DPM DABAZUL on 01/25/2025 at 01:53 AM CDT Sign off status: Pending * Provider: Marv Alonzo DPM, DABPM Date: 01/10/2024 Generated for Jacobo alvarado/Madie/Ranjan on: 01/25/2025 01:53 AM CDT
--- OUTSIDE RECORDS SUMMARY | 2024-02-07 05:00 | XMS_ITS ---
Author Organization [facility] Address [address] [place] [address] Care Team Providers Care Drafter Tool Design Name Role Phone Deborah BREEN, Jacki Primary Care Provider Un available Pamella Alonzo Unavailable [phone] REASON FOR VISIT callus, neuropathy Encounters Encounter Location Date Provider Diagnosis [place] [facility] [address] [place] [address] [place] [phone] 02/07/2024 Pamella Alonzo Plan Of Treatment Next Appt Details Provider Name:Pamella Erickson tock, 01/29/2025 11:00:00 AM, [address], [id number], Progress Notes * Karolina RAMOS LDOB: (69 yo F)Acc No.[id number]:02/07/2024 Progress Notes Patient: Karolina NAJERA Provider: Marv Alonzo DPM, DABPM :1955 A ge:68 Y S ex:Female Date:02/07/2024 Address:[address] [place], [place] [phone] Pcp:Jacki Cabrera MD Subjective: * Chief Complaints: * 1 . Callus, neuropathy. * Medical History: Objective: * Vitals: Assessment: Plan: * Treatment: * Billing Information: * Visit Code: * Procedure Codes: * Electronic signature of Nishi Alonzo DPM DABAZUL on 01/25/2025 at 01:52 AM CDT Sign off status: Pending * Provider: Marv Alonzo DPM, DABPM Date: 1 Generated for Jacobo alvarado/Madie/Ranjan on: 0 01/25/2025 01:52 AM CDT
--- OUTSIDE RECORDS SUMMARY | 2024-04-08 12:00 | XMS_ITS ---
Author Organization [facility] Address [address] [place] [address] Care Team Providers Care Carpenters Supervisor Name Role Phone ThomSusanneLee Unavailable [phone] Medications Medication SIG (Take, Route, Frequency, Duration) Notes Start Date End Date Status Calcitriol 0.25 MCG Take 1 capsule by mo cox branson once daily; Duration: 90 Active Potassium Chloride ER 20 MEQ Take 1 tabl et by mouth twice daily; Duration: 90 Active Dapagliflozin Propanediol 5 MG Take 1 tablet by mouth once daily; Duration: 90 Active Social History Sex Assigned At : Social History Observation Description Sex Assigned At Female Encounters Encounter Location Date Provider Diagnosis [facility] [place] [facility] [address] [place] [address] 04/08/2024 Lee Tomas Chronic kidney disease, stage 2 (mild) N18.2 ; Type 2 diabetes mellitus with hyperglycemia E11.65 ; Essential hypertension I10 ; Abnormal metabolic state due to diabetes mellitus E11.9 ; Renal osteodystrophy N25.0 and Secondary hyperparathyroidism, not elsewhere classified E21.1 Assessments Encounter Date Diagnosis (ICD Code) Assessment Notes Treatment Notes Treatment Clinical Notes Section Notes 04/08/2024 Chronic kidney disease, stage 2 (mild) (ICD-10 - N18.2) 04/08/2024 Type 2 diabetes mellitus with hyperglycemia (ICD-10 - E11.65) 04/08/2024 Essential hypertension (ICD-10 - I10) 04/08/2024 Abnormal metabolic state due to diabetes mellitus (ICD-10 - E11.9) 04/08/2024 Renal osteodystrophy (ICD-10 - N25.0) 04/08/2024 Secondary hyperparathyroidism , not elsewhere classified (ICD-10 - E21.1) Plan Of Treatment No Information Progress Notes * AHSAN HANEYDOB:1955 (69 yo F)Acc No.[id number]:04/08/2024 Patient: AHSAN NAJERA Provider: Dipika SERRATO MD, F.A.C.P, F.A.S.N. :1955 A ge:69 Y S ex:Female Date:04/08/2024 Address:[address] [place] [address] Subjective: * Chief Complaints: Objective: Assessment: * Assessment: 1. C hronic kidney disease, stage 2 (mild) - N18.2 (Primary) 2 . T ype 2 diabetes mellitus with hyperglycemia - E11.65 3 . E ssential hypertension - I10? 4. A bnormal metabolic state due to diabetes mellitus - E11.9 5 . Renal osteodystrophy - N25.0 6 . S econdary hyperparathyroidism, not elsewhere classified - E21.1 Plan: * Billing Information: * Visit Code: 41542 Office Visit, Est Pt., Level 5. * Procedure Codes: * Electronic signature of Maria Eugenia Tomas MD on 01/25/2025 at 01:52 AM CDT Sign off status: Pending * Provider: Dipika SERRATO MD, F.A.C.P, F.A.S.N. Date: 06/09/2023 Generated for Printing/Faxing/eTransmitting on: 0 01/25/2025 01:52 AM CDT
--- OUTSIDE RECORDS SUMMARY | 2024-06-12 09:30 | XMS_ITS ---
Author Organization [facility] Address [address] [place] [address] Care Team Providers Care Director Strategy Name Role Phone Lee Tomas Unavailable [phone] Social History Sex Assigned At : Social History Observation Description Sex Assigned At Female Encounters Encounter Location Date Provider Diagnosis [facility] [address] [facility] [address] [place] [address] 06/12/2024 Lee Tomas Chronic kidney disea se, stage 2 (mild) N18.2 ; Essential hypertension I10 ; Abnormal metabolic state due to diabetes mellitus E11.9 ; Renal osteodystrophy N25.0 ; Secondary hyperparathyroidism, not elsewhere classified E21.1 ; Type 2 diabetes mellitus with hyperglycemia E11.65 and Elevation of levels of liver transaminase levels R74.01 Assessments Encounter Date Diagnosis (ICD Code) Assessment Notes Treatment Notes Treatment Clinical Notes Section Notes 06/12/2024 Chronic kidney disease, stage 2 (mild) (ICD-10 - N18.2) 06/12/2024 Essential hypertension (ICD-10 - I10) 06/12/2024 Abnormal metabolic state due to diabetes mellitus (ICD-10 - E11.9) 06/12/2024 Renal osteodystrophy (ICD-10 - N25.0) 06/12/2024 Secondary hyperparathyroidism , not elsewhere classified (ICD-10 - E21.1) 06/12/2024 Type 2 diabetes mellitus with hyperglycemia (ICD-10 - E11.65) 06/12/2024 Elevation of levels of liver transaminase levels (ICD-10 - R74.01) Plan Of Treatment No Information Progress Notes * AHSAN HANEYDOB:1955 (69 yo F)Acc No.[id number]:06/12/2024 Progress Notes Patient: AHSAN NAJERA Provider: Dipika SERRATO MD, Randolph, F.A.S.N. :1955 A ge:69 Y S ex:Female Date:06/12/2024 Address:[address] [place] [address] [address] [id number] Subjective: * Chief Complaints: * * Medical History: Objective: * Vitals: Assessment: * Assessment: 1. C hronic kidney disease, stage 2 (mild) - N18.2 (Primary) 2 . E ssential hypertension - I10 3 . A bnormal metabolic state due to diabetes mellitus - E11.9 4 . R enal osteodystrophy - N25.0 5 . S econdary hyperparathyroidism, not elsewhere classified - E21.1 6 . T ype 2 diabetes mellitus with hyperglycemia - E11.65 7 . E levation of levels of liver transaminase levels - R74.01 Plan: * Treatment: * Billing Information: * Visit Code: 51847 Office Visit, Est Pt., Level 4. * Procedure Codes: * Electronic signature of Maria Eugenia Tomas MD on 01/25/2025 at 01:54 AM CDT Sign off status: Pending * Provider: Dipika SERRATO MD, Randolph, F.A.S.N. Date: 06/12/2024 Generated for Printing/Faxing/eTransmitting on: 0 01/25/2025 01:54 AM CDT
--- OUTSIDE RECORDS SUMMARY | 2024-06-24 09:00 | XMS_ITS ---
Author Organization [facility] [employer] Address [facility] [address] [address] Care Team Providers Care Tree And Shrub Technician Name Role Phone Deborah BREEN, Jacki Primary Care Provider Un available Rosita Smith Unavailable [phone] REASON FOR VISIT R/S-Pt has covid Social History Sex Assigned At : Social History Observation Description Sex Assigned At Female Encounters Encounter Location Date Provider Diagnosis [facility] [employer] [address] [address] [address] [facility] [address] [address] 06/24/2024 Rosita Smith Plan Of Treatment No Information Progress Notes * AHSAN HANEYDOB:1955 (69 yo F)Acc No.[id number]:06/24/2024 Patient: AHSAN NAJERA Provider: Marv Smith :1955 A ge:69 Y S ex:Female Date:06/24/2024 Address[address] [facility] Pcp:Jacki Cabrera MD Subjective: * Chief Complaints: * R /S-Pt has covid * Electronic signature of Flako Smith on 01/25/2025 at 01:53 AM CDT Sign off status: Pending * Provider: Marv Smith Date: 0 06/24/2024 Generated for Virii ng/Faxing/eTransmitting on: 0 01/25/2025 01:53 AM CDT
--- OUTSIDE RECORDS SUMMARY | 2024-08-07 07:45 | XMS_ITS ---
Author Organization [facility] Address [address] [place] [address] Care Team Providers Care Sommelier Name Role Phone [place] Unavailable [phone] Social History Sex Assigned At : Social History Observation Description Sex Assigned At Female Encounters Encounter Location Date Provider Diagnosis [facility] [place] [facility] [address] [place] [address] 08/07/2024 Lee Tomas Plan Of Treatment No Information Progress Notes * AHSAN HANEYDOB:1955 (69 yo F)Acc No.[id number]:08/07/2024 Progress Notes Patient: AHSAN NAJERA Provider: Dipika SERRATO MD, Brooks.Ludwig.C.P, F.A.S.N. :1955 A ge:69 Y S ex:Female Date:08/07/2024 Address:[address] [place] [address] Subjective: * Chief Complaints: * * Medical History: Objective: * Vitals: Assessment: Plan: * Treatment: * Billing Information: * Visit Code: * Procedure Codes: * Electronic signature of Maria Eugenia Tomas MD on 01/25/2025 at 01:52 AM CDT Sign off status: Pending * Provider: Dipika SERRATO MD, Brooks.Ludwig.C.P, F.A.S.N. Date: 0 08/07/2024 Generated for Printing/Faxing/eTransmitting on: 0 01/25/2025 01:52 AM CDT
--- OUTSIDE RECORDS SUMMARY | 2024-08-21 09:45 | XMS_ITS ---
Author Organization [facility] Office Address [address] [address] [place] [address] Care Team Providers Care Garnett Machine Operator Helper Name Role Phone ThomSusanneLee Unavailable [phone] Medications Medication SIG (Take, Route, Frequency, Duration) Notes Start Date End Date Status Losartan Potassium 50 MG 1 tablet Orally Once a day; Duration: 90 days 07/06/2024 Active Ergocalciferol 1.25 MG (17996 UT) 1 capsule Orally Once a week; Duration: 90 day(s) 04/09/2024 01/04/2025 Active Potassium Chloride ER 20 MEQ Take 1 tablet by mouth twice daily; Duration: 90 Active Dapagliflozin Propanediol 5 MG Take 1 tablet by mouth once daily; Duration: 90 Active Calcitriol 0.25 MCG Take 1 capsule by mo uth once daily; Duration: 90 Active Losartan Potassium 25 MG Take 1 tablet b y mouth once daily; Duration: 90 Active Social History Sex Assigned At : Social History Observation Description Sex Assigned At Female Problems Problem Type SNOMED Code ICD Code Onset Dates Problem Status W/U Status Risk Notes Problem Vitamin D deficiency (25312509) Vitamin D deficiency, unspecified (E55.9) Active confirmed Encounters Encounter Location Date Provider Diagnosis [place] [facility] [address] [facility] [address] [place] [address] 08/21/2024 Lee Tomas Chronic kidney disea se, stage 2 (mild) N18.2 ; Essential hypertension I10 ; Abnormal metabolic state due to diabetes mellitus E11.9 ; Renal osteodystrophy N25.0 ; Secondary hyperparathyroidism, not elsewhere classified E21.1 ; Type 2 diabetes mellitus with hyperglycemia E11.65 and Vitamin D deficiency, unspecified E55.9 Assessments Encounter Date Diagnosis (ICD Code) Assessment Notes Treatment Notes Treatment Clinical Notes Section Notes 08/21/2024 Chronic kidney disease, stage 2 (mild) (ICD-10 - N18.2) 08/21/2024 Essential hypertension (ICD-10 - I10) 08/21/2024 Abnormal metabolic state due to diabetes mellitus (ICD-10 - E11.9) 08/21/2024 Renal osteodystrophy (ICD-10 - N25.0) 08/21/2024 Secondary hyperparathyroidism , not elsewhere classified (ICD-10 - E21.1) 08/21/2024 Type 2 diabetes mellitus with hyperglycemia (ICD-10 - E11.65) 08/21/2024 Vitamin D deficiency, unspecified (ICD-10 - E55.9) Plan Of Treatment No Information Progress Notes * AHSAN HANEYDOB:1955 (69 yo F)Acc No.[id number]:08/21/2024 Progress Notes Patient: AHSAN NAJERA Provider: Dipika SERRATO MD, FEsau, F.AYulissaSYulissaNYulissa :1955 A ge:69 Y S ex:Female Date:08/21/2024 Address:[address] [place] [address] Subjective: * Chief Complaints: * * Medical History: * Medications: T aking Dapagliflozin Propanediol 5 MG Tablet Take 1 tablet by mouth once daily , Taking Calcitriol 0.25 MCG Capsule Take 1 capsule by mouth once daily , Taking Ergocalciferol 1.25 MG (32801 UT) Capsule 1 capsule Orally Once a week , stop date 01/04/2025, Taking Potassium Chloride ER 20 MEQ Tablet Extended Release Take 1 tablet by mouth twice daily , Taking Losartan Potassium 25 MG Tablet Take 1 tablet by mouth once daily , Taking Losartan Potassium 50 MG Tablet 1 tablet Orally Once a day Objective: * Vitals: Assessment: * Assessment: 1. [...] mellitus with hyperglycemia - E11.65 7 . V itamin D deficiency, unspecified - E55.9 ? Plan: * Treatment: * Billing Information: * Visit Code: 81658 Office Visit, Est Pt., Level 4. * Procedure Codes: * Electronic signature of Maria Eugenia Tomas MD on 01/25/2025 at 01:52 AM CDT Sign off status: Pending * Provider: Dipika SERRATO MD, F.A.C.P, F.A.S.N. Date: 0 08/21/2024 Generated for Printing/Faxing/eTransmitting on: 0 01/25/2025 01:52 AM CDT
--- OUTSIDE RECORDS SUMMARY | 2024-10-19 11:00 | XMS_ITS ---
Author Organization [facility] [employer] [facility] Address [facility] [address] [facility] [address] [place] [address] Care Team Providers Care Motorsports Technician Name Role Phone Deborah BREEN, Jacki Primary Care Provider Un available Rostia Smith Unavailable [phone] REASON FOR VISIT 1 month f/u Social History Sex Assigned At : Social History Observation Description Sex Assigned At Female Encounters Encounter [email or web address] [address] [facility] [address] [facility] [address] [place] [address] 10/19/2024 Rosita Smith Plan Of Treatment No Information Progress Notes * AHSAN HANEYDOB:1955 (69 yo F)Acc No.[id number]:10/19/2024 Patient: AHSAN NAJERA Provider: Marv Smith :1955 A ge:69 Y S ex:Female Date:10/19/2024 Address:[address] [facility] Pcp:Jacki Cabrera MD Subjective: * Chief Complaints: * 1 month f/u * Electronic signature of Flako Smith on 01/25/2025 at 01:52 AM CDT Sign off status: Pending * Provider: Marv Smith Date: 0 10/19/2024 Generated for Virii ng/Faxing/eTransmitting on: 0 01/25/2025 01:52 AM CDT
--- OUTSIDE RECORDS SUMMARY | 2024-11-18 12:45 | XMS_ITS ---
Author Organization [facility] Address [address] [facility] [address] [facility] [address] [place] [address] Care Team Providers Care Clinical Educator Name Role Phone Thom Lee Unavailable [phone] Medications Medication SIG (Take, Route, Frequency, Duration) Notes Start Date End Date Status Potassium Chloride ER 20 MEQ Take 1 tablet by mouth twice daily; Duration: 90 Active Ergocalciferol 1.25 MG (84328 UT) 1 capsule Orally Once a week; Duration: 90 day(s) 04/09/2024 01/04/2025 Active Losartan Potassium 25 MG Take 1 tablet b y mouth once daily; Duration: 90 Active Losartan Potassium 50 MG 1 tablet Orally Once a day; Duration: 90 days 07/06/2024 Active Calcitriol 0.25 MCG Take 1 capsule by mo uth once daily; Duration: 90 Active Dapagliflozin Propanediol 5 MG Take 1 tablet by mouth once daily; Duration: 90 Active Social History Sex Assigned At : Social History Observation Description Sex Assigned At Female Encounters Encounter Location Date Provider Diagnosis [place] [facility] [address] [address] 11/18/2024 Lee Tomas Plan Of Treatment No Information Progress Notes * AHSAN HANEYDOB:1955 (69 yo F)Acc No.[id number]:11/18/2024 Progress Notes Patient: AHSAN NAJERA Provider: Dipika SERRATO MD, F.A.C.P, F.A.S.N. :1955 A ge:69 Y S ex:Female Date:11/18/2024 Address:[address] [place], [place] [id number] Subjective: * Chief Complaints: * * Medical History: * Medications: T aking Dapagliflozin Propanediol 5 MG Tablet Take 1 tablet by mouth once daily , Taking Ergocalciferol 1.25 MG (72683 UT) Capsule 1 capsule Orally Once a week , stop date 01/04/2025, Taking Losartan Potassium 25 MG Tablet Take 1 tablet by mouth once daily , Taking Losartan Potassium 50 MG Tablet 1 tablet Orally Once a day , Taking Calcitriol 0.25 MCG Capsule Take 1 capsule by mouth once daily , Taking Potassium Chloride ER 20 MEQ Tablet Extended Release Take 1 tablet by mouth twice daily Objective: * Vitals: Assessment: Plan: * Treatment: * Billing Information: * Visit Code: 95248 Office Visit, Est Pt., Level 5. * Procedure Codes: * Electronic signature of Maria Eugenia Tomas MD on 01/25/2025 at 01:53 AM CDT Sign off status: Pending * Provider: Dipika SERRATO MD, F.A.C.P, F.A.S.N. Date: 11/18/2024 Generated for Printing/Faxing/eTransmitting on: 01/25/2025 01:53 AM CDT
[2025-01-14 13:49] VITALS: BMI 33.5
--- NOTE | 2025-01-14 14:32 | PC.NURSE ---
Report to the Outpatient Waiting Room, entrance under the green pavilion located off [facility], at time ___11:00AM____ on date ___01/25/25____. Planned Procedure Time: __1:00PM .? Time changes happen often and if your time is changed the preop area will call you the afternoon before. - You and your visitor will be asked to self-screen and do not enter if you have any COVID symptoms. Please call surgeon if you need to reschedule. - A mask is optional within the hospital at this time. Patients may have clear liquids (water, carbonated beverages, clear teas, apple juice) until 3 hours prior to surgery (10:00AM) with a maximum of 20 ounces. - No food from midnight until time of surgery and no smoking, or chewing tobacco (or any form of nicotine). No chewing gum, candy or mints. Take only the following medications with a SIP of water on the morning of surgery: ___DULOXETINE, GABAPENTIN, PREDNISONE MAY TAKE ZOFRAN AND HYDROXYZINE NEEDED DO NOT STOP ANY OF YOUR OTHER PRESCRIPTION MEDICATIONS PRIOR TO SURGERY EXCEPT THE FOLLOWING Hold all vitamins and supplements for 3 days per anesthesiologist. LAST DOSE 01/21/25 Medications to discontinue per physician __HOLD SULFASALAZINE PER DR WALTERS Date to take last dose Please no make-up, nail maltese, hairspray, perfume, deodorant, or body powder the day of surgery.? No jewelry (including any body piercings) or valuables the day of surgery, leave them at home.? Please take a shower or bath the night before, or the morning of, surgery with an antibacterial soap.? Wear comfortable, loose fitting clothing.? Children are encouraged to wear pajamas. - Jewelry must be removed prior to entering the operating room.? Rings and piercings that are not removed may be cut off. - The hospital will not accept responsibility for valuables.? - Please leave all valuables, including medications, at home the day of surgery. If you are going home after surgery, a licensed driver recruiter must drive you home.? - NO public transportation without another adult if you receive anesthesia. - We recommend that an adult stay with you for 24 hours following discharge. - We also recommend that you do not drive, make important decision, drink alcoholic beverages, or take any drugs that were not prescribed by your health care provider for at least 24 hours after your discharge time. For Pediatric surgeries, we recommend two adults accompany the child home. Follow any additional instructions given to you from your surgeon. Telephone instructions given to ____PATIENT and asked if any additional questions and then verbalized understanding. Patient advised to call surgeon office or pre surgery nurse liaison [phone] if any additional questions.
--- OUTSIDE RECORDS SUMMARY | 2025-01-25 01:52 | XMS_ITS | Encounter Summary ---
Author Organization [facility] Address [address] [place] [address] Care Team Providers Care Manager Audit Name Role Phone Jacki Cabrera MD Primary Care Provider Juvenal Sparrow MD Unavailable Unavailabl e Lee Tomas MD Unavailable [phone] Carol Bryant MD Unavailable [phone] Encounter Details Date Type Department Care Team (Late st Contact Info) Description 11/18/[address] [facility] [place] [address] Sesar Felipe MD [address] [facility] [place] [address] Social History Tobacco Use Types Packs/Day Years [...] as of this encounter Care Teams Manager Audit Relationship Specialty Start Date End Date Jacki Cabrera MD [address] [facility] [address] [place] [address] PCP - General INTERNAL MEDICINE 12/05/16 Juvenal Sparrow MD [address] [facility] [address] [place] [address] [place] [facility] Therapist CARDIOVASCULAR DISEASE 12/05/16 11/18/22 Lee Tomas [place] [id number] [place] [phone] NEPHROLOGY 11/19/22 Carol Bryant MD [facility], [address] [facility] [address] [place] [address] CARDIOVASCULAR DISEASE 11/19/22 documented as of this encounter
--- OUTSIDE RECORDS SUMMARY | 2025-01-25 01:52 | XMS_ITS | Encounter Summary ---
Author Organization [facility] Address [address] [place] [address] Care Team Providers Care Bed Laster Name Role Phone Jacki Cabrera MD Primary Care Provider Juvenal Sparrow MD Unavailable Unavailabl e Lee Tomas MD Unavailable [phone] Carol Bryant MD Unavailable [phone] Encounter Details Date Type Department Care Team (Late st Contact Info) Description 12/06/2016 Abstract [facility] [address] [place] [address] Juvenal Sparrow MD Social History Tobacco Use Types Packs/Day [...] documented as of this encounter Care Teams Bed Laster Relationship Specialty Start Date End Date Jacki Cabrera MD [address] [facility] [address] [place] [address] PCP - General INTERNAL MEDICINE 12/05/16 Juvenal Sparrow MD [address] [facility] [address] [place], [place] [id number] [place] [address] Director Transportation CARDIOVASCULAR DISEASE 12/05/16 11/18/22 Lee Tomas MD [address] [place] [address] NEPHROLOGY 11/19/22 Carol Bryant MD [facility], [id number] [place] [address] [address] [place] [address] CARDIOVASCULAR DISEASE 11/19/22 documented as of this encounter
--- OUTSIDE RECORDS SUMMARY | 2025-01-25 01:52 | XMS_ITS | Clinical Summary ---
Author Organization [facility] Address [address], [facility] 1 [place] [address] Phone Care Team Providers Care Bird Tender Name Role Phone Jacki Cabrera MD Primary [...] by mouth daily. 7 Active nystatin (MYCOSTATIN) 240112 UNIT/GM Cream Apply 2 times daily as [...] on file Legal Sex Female 9:51 AM MOTORMAN/WOMAN Gender Identity Not on file Sexual Orientation Not on file Last Filed Vital Signs Vital Sign Reading Time Taken Comments Blood Pressure 158/90 04/12/2022 12:31 PM MOTORMAN/WOMAN Pulse 114 04/12/2022 12:31 PM MOTORMAN/WOMAN Temperature 36.5 C (97.7 F) 04/12/2022 12:31 PM MOTORMAN/WOMAN Respiratory Rate 16 04/12/2022 12:3 1 PM MOTORMAN/WOMAN Oxygen Saturation 95% 04/12/2022 12: 31 PM MOTORMAN/WOMAN Inhaled Oxygen Concentration - - Weight 114.5 kg (252 lb 6.4 oz) 022 12:31 PM MOTORMAN/WOMAN Height 172.7 cm (5' 8) 04/12/2022 12:3 1 PM MOTORMAN/WOMAN Body Mass Index 38.38 04/12/2022 12:31 PM MOTORMAN/WOMAN Plan of Treatment Health Maintenance Due Date Last Done Comments Hepatitis C Virus (HCV) Screening 1955 TdaP Immunization 1955 Cologuard 2002 Colonoscopy 2002 Colorectal Cancer Screening 2002 Immunochemical Fecal Occult Blood 2002 Respiratory Syncytial Virus (RSV) Immunization (Adult) (1 - Risk 60-74 years 1-dose series) 2017 Influenza Immunization (#1) 2025 100 09/2021, 02/08/2021, 02/16/2020, Additional history exists SARS-COV-2 Immunization (2024- season) 2025 02/07/2022, 04/03/2021, 08/15/2020, Additional history exists Pneumococcal [...] to complete this topic Insurance MEDICARE [facility] [place]ICAID [place] Care Teams Bird Tender Relationship Specialty Start Date End Date Jacki Cabrera MD [address] [place] [address] PCP - General Internal Medicine 04/12/22
--- OUTSIDE RECORDS SUMMARY | 2025-01-25 01:52 | XMS_ITS | Clinical Summary ---
Author Organization [facility] Address [address] [place] [address] Care Team Providers Care Feed Adviser Name Role Phone Jacki Cabrera MD Primary Care Provider Lee Tomas MD Unavailable [phone] Carol Bryant MD Unavailable [phone] Allergies Active Allergy Reactions Criticality Noted Date [...] 75 11/22/2022 11:30 AM CDT Temperature 36.2 C (97.2 F) 11/22/2022 11:30 AM CDT Respiratory Rate 16 11/22/2022 11:3 0 AM CDT Oxygen Saturation 100% 11/22/2022 11: 30 AM CDT Inhaled Oxygen Concentration - - Weight 105.7 kg (233 lb 0.4 oz) 11/22/2022 8:00 AM CDT Height 172.7 cm (5' 8) 11/22/2022 8:00 AM CDT Body Mass Index 35.43 11/22/2022 8:00 AM CDT Plan of Treatment Health Maintenance Due Date Last Done Comments Colorectal Cancer Screening Colonoscopy (10 Years) 1957 Hepatitis C 1975 DTaP, Tdap and Td Vaccines (1 - Tdap) 1976 Mammogram Screening 1997 Annual Medicare Wellness Visit 2022 Dexa Scan (General) 2022 COVID-19 Vaccine ( season) 2025 02/07/2022, 04/03/2021, 08/15/2020, Additional history exists RSV Immunization or 60+ Years (1 - 1-dose 75+ series) 2032 Zoster Vaccines Completed 04/30/2019, 02/22/2019 Pneumococcal Vaccine: 50+ Years Completed 09/10/2022, 04/03/2021, 08/13/2006 Meningococcal B Vaccine Aged Out No l onger eligible based on patient's age to complete this topic Meningococcal Vaccine Aged Out No marisela bianca eligible based on patient's age to complete this topic RSV Immunizations Under 20 Months Aged Out No longer eligible based on patient's age to complete this topic Medical Devices Implanted Type Area Electric Train Driver Device Identifier Shelf Expiration Date Model / Serial / Lot Stimulator Implant Stimulator Implant Description:Neurostimulator Bulkamid Injection Urethral Bulking Agent Implanted:Qty : 1 on 11/22/2022 by Sesar Felipe MD at [facility] N/A: Urethra [id number] 07/03/2025 [id number] / / [id number] Additional Health Concerns Infection Onset Date Last Indicated MRSA 03/29/2017 03/29/2017 Insurance MEDICAID MEDICARE MEDICAID [facility] Advance Directives Documents on File Type Date 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 Advance Directives and Living Will 01/03/2016 SHORT FORM POWER OF SUPERVISOR [employer]EARCH KENNEL Advance Directives and Living Will 08/15/2015 12:00 AM [employer] DIRECTIV[employer] Advance Directives and Living Will 01/12/2014 12:00 AM [employer] Care Teams Feed Adviser Relationship Specialty Start Date End Date Jacki Cabrera MD [address] [address] PCP - General INTERNAL MEDICINE 12/05/16 [place] [id number] [place] [address] [address], [place] [address] NEPHROLOGY 11/19/22 Carol Bryant MD [facility], [address] [facility] [address] [place], [place] [id number] CARDIOVASCULAR DISEASE 11/19/22
--- OUTSIDE RECORDS SUMMARY | 2025-01-25 01:53 | XMS_ITS | Patient Health Record ---
Author Organization [facility] Address [address] [place] [address] Care Team Providers Care Predatory Animal Trapper Name Role Phone Lee Tomas Unavailable [phone] Reason For Referral No Information Medications Medication SIG (Take, Route, Frequency, Duration) Notes Start Date End Date Status Dapagliflozin Propanediol 5 MG Take 1 tablet by mouth once daily; Duration: 90 Active Losartan Potassium 25 MG Take 1 tablet b y mouth once daily; Duration: 90 Active Losartan Potassium 50 MG 1 tablet Orally Once a day; Duration: 90 days 07/06/2024 Active Calcitriol 0.25 MCG Take 1 capsule by [facility] once daily; Duration: 90 Active Potassium Chloride ER 20 MEQ 1 tablet wi th food Orally Twice a day; Duration: 90 days Active Social History Sex Assigned At : Social History Observation Description Sex Assigned At Female Problems Problem Type SNOMED Code ICD Code Onset Dates Problem Status W/U Status Risk Notes Problem Hyperglycemia due to type 2 diabetes mellitus (900208896235238) Type 2 diabetes mellitus with hyperglycemia (E11.65) Active confirmed Problem Secondary hyperparathyroidism (41994934) Secondary hyperparathyroid ism, not elsewhere classified (E21.1) Active confirmed Problem Vitamin D deficiency (86379875) Vitamin D deficiency, unspecified (E55.9) Active confirmed Problem Chronic kidney disease stage 2 (332104026) Chronic kidney disease, stage 2 (mild) (N18.2) Active confirmed Problem Renal osteodystrophy (63187973) Renal osteodystrophy (N25.0) Active confirmed Problem Essential hypertension (03749712) Essential hypertension (I10) Active confirmed Problem Abnormal metabolic state due to diabetes mellitus (515907399) Abnormal metabolic state due to diabetes mellitus (E11.9) Active confirmed Encounters Encounter Location Date Provider Diagnosis [facility] [address] [facility] [address] [place] [address] 03/25/2024 Lee Tomas Chronic kidney disea se, stage 2 (mild) N18.2 ; Essential hypertension I10 ; Abnormal metabolic state due to diabetes mellitus E11.9 ; Renal osteodystrophy N25.0 ; Secondary hyperparathyroidism, not elsewhere classified E21.1 and Type 2 diabetes mellitus with hyperglycemia E11.65 [facility] [place] [facility] [address] [place] [address] 04/08/2024 Lee Tomas Chronic kidney disea se, stage 2 (mild) N18.2 ; Type 2 diabetes mellitus with hyperglycemia E11.65 ; Essential hypertension I10 ; Abnormal metabolic state due to diabetes mellitus E11.9 ; Renal osteodystrophy N25.0 and Secondary hyperparathyroidism, not elsewhere classified E21.1 [facility] [address] [address] 06/12/2024 Leejavan Tomas Chronic kidney disea se, stage 2 (mild) N18.2 ; Essential hypertension I10 ; Abnormal metabolic state due to diabetes mellitus E11.9 ; Renal osteodystrophy N25.0 ; Secondary hyperparathyroidism, not elsewhere classified E21.1 ; Type 2 diabetes mellitus with hyperglycemia E11.65 and Elevation of levels of liver transaminase levels R74.01 [facility] [address] [address] 08/21/2024 Lee Tomas Chronic kidney disea se, stage 2 (mild) N18.2 ; Essential hypertension I10 ; Abnormal metabolic state due to diabetes mellitus E11.9 ; Renal osteodystrophy N25.0 ; Secondary hyperparathyroidism, not elsewhere classified E21.1 ; Type 2 diabetes mellitus with hyperglycemia E11.65 and Vitamin D deficiency, unspecified E55.9 [facility] [address] [address] 04/09/2024 [facility] [address] [address] 04/09/2024 [facility] [address] [address] 04/09/2024 [facility] [address] [address] 07/06/2024 Lee Tomas [facility] [place] [facility] [address] [place] [address] 08/21/2024 Lee Tomas [facility] [place] [address] 12/30/2024 Lee Tomas Assessments Encounter Date Diagnosis (ICD [...]
--- OUTSIDE RECORDS SUMMARY | 2025-01-25 01:53 | XMS_ITS | Clinical Summary ---
Author Organization [facility] Address [address] [place] [address] Care Team Providers Care Procedures Tech Name Role Phone Jacki Cabrera MD Primary Care Provider Allergies Active Allergy Reactions Criticality Noted Date Comments Metformin Nausea and Vomiting Low 06/05/2019 Penicillins Rash,Shortness of Breath/Wheezing High 0 12/12/2007 Zolpidem Hallucination Low 01/05/2025 Medications DULoxetine (CYMBALTA) 60 mg Capsule, Delayed [...] Take 20 mg by mouth daily. 02/06/20 Active fluticasone propionate (FLONASE) 50 mcg/spray [place], Suspension nasal inhaler Administer 1-2 Sprays in each nostril daily. Active nystatin (MYCOSTATIN) 100,000 unit/gram Cream Apply to affected area. Active semaglutide (Ozempic) 0.25 mg or 0.5 mg(2 mg/1.5 mL) Pen Injector Inject 0.5 mg by subcutaneous injection every 7 days. 04/06/20 Active sulfaSALAzine (AZULFIDINE) 500 mg tablet Take 500 mg by mouth 2 times daily. 03/22/20 Active QUEtiapine (SEROquel) 100 mg tablet Take 100 mg by mouth. 04/08/20 Active ixekizumab (Taltz Autoinjector) 80 mg/mL Auto-Injector [...] Active Problems Problem Noted Date Diagnosed Date Follicular lymphoma 01/05/2025 Right thyroid nodule 01/05/2025 Tobacco use 01/06/2019 Encounters Date Type Department Care Team Description 01/18/2025 Orders Only [facility] [place] [address] [place] [address] Venkatesh Bolanos MD Follicular lymphoma, unspecified follicular lymphoma type, unspecified body region (CMS/HCC) 01/12/2025 External Device Data STL ABSTRACTION Provider, Abstract 01/12/2025 External Device Data STL ABSTRACTION Provider, Abstract 01/12/2025 External Device Data ST[facility] ABSTRACTION Provider, Abstract 01/06/2025 Orders Only [facility] [place] [address] [place] [id number] Venkatesh Bolanos MD Follicular lymphoma, unspecified follicular lymphoma type, unspecified body region (CMS/HCC) (Primary Dx) 01/05/2025 9:00 AM CDT Office Visit [facility] [place] [address] [place] [address] Delia Rios MD Follicular lymphoma, unspecified follicular lymphoma type, unspecified body region (CMS/HCC) (Primary Dx); Right thyroid nodule 01/05/2025 Orders Only [facility] [place] [address] [place] [address] Venkatesh Bolanos MD 01/04/2025 Orders Only [facility] [place] [address] [place] [id number] Venkatesh Bolanos MD Follicular lymphoma, unspecified follicular lymphoma type, unspecified body region (CMS/HCC) 12/31/2024 Orders Only [facility] - [place] [address] Venkatesh Bolanos MD 12/21/2024 Orders Only [facility] - [place] [address] Venkatesh Bolanos MD Follicular lymphoma, unspecified follicular lymphoma type, unspecified body region (CMS/HCC) 12/08/2024 External Device Data STL ABSTRACTION Provider, Abstract 12/07/2024 Orders Only [facility] - [place] [address] [place] [phone] Venkatesh Bolanos MD Follicular lymphoma, unspecified follicular lymphoma type, unspecified body region (CMS/HCC) 11/23/2024 Orders Only [facility] - [place] [address] [place] [address] Venkatesh Bolanos MD Follicular lymphoma, unspecified follicular lymphoma type, unspecified body region (CMS/HCC) 11/18/2024 External Device Data STL ABSTRACTION Provider, Abstract 11/18/2024 External Device Data STL ABSTRACTION Provider, Abstract 11/10/2024 9:00 AM CDT Office Visit [facility] - [place] [address] [place] [address] Venkatesh Bolanos MD Follicular lymphoma, unspecified follicular lymphoma type, unspecified body region (CMS/HCC) (Primary Dx) 11/09/2024 Orders Only [facility] - [address] [place] [address] Venkatesh Bolanos MD Follicular lymphoma, unspecified follicular lymphoma type, unspecified body region (CMS/HCC) 10/27/2024 External Device Data STL ABSTRACTION Provider, Abstract 10/26/2024 Orders Only [facility] - [place] [place] [address] Venkatesh Bolanos MD Follicular lymphoma, unspecified follicular [...] Date Smoking Tobacco: Every Day Cigarettes 0.3 1.5 Started: 08/05/2023 Smokeless Tobacco: Never Alcohol Use [...] Sign Reading Time Taken Comments Blood Pressure 142/92 01/05/2025 8:45 AM CDT Pulse 76 01/05/2025 8:41 AM CDT Temperature 36.1 C (96.9 F) 01/05/2025 8:41 AM CDT Respiratory Rate 16 01/05/2025 8:41 AM CDT Oxygen Saturation 99% 01/05/2025 8:41 AM CDT Inhaled Oxygen Concentration - - Weight 103.6 kg (228 lb 6.4 oz) 01/05/2025 8:41 AM CDT Height 172.7 cm (5' 8) 04/02/2023 1:37 PM [facility] Body Mass Index 34.73 04/02/2023 1:37 PM [facility] Plan of Treatment Upcoming Encounters Date Type Department Care Team (Late st Contact Info) Description 03/03/2025 9:45 AM CDT Office Visit [facility] [place] [address] [facility] [address] [place] [address] Venkatesh Bolanos MD [address] [facility] [address] [place] [address] Health Maintenance Due Date Last [...] 6 MONTHS 09/16/2021 03/19/2021 INFLUENZA VACCINE (#1) 2024 4, 2023, 02/07/2022, Additional history exists COVID-19 Vaccine (2024-2 6 season) 2025 04/06/2023, 02/07/2022, 04/03/2021, Additional history exists OSTEOPOROSIS SCREENING 04/07/2026 04/07/2021 DTAP/TDAP/TD VACCINES (2 - T d or Tdap) 11/21/2033 11/22/2023 ZOSTER VACCINE Completed 04/30/2019, 02/22/2019 PNEUMOCOCCAL VACCINE 50+ YEARS Completed 0 09/10/2022, 04/03/2021, 08/13/2006 Procedures Procedure Name Priority Date/Time Associated Diagnosis Comments CBC WITH AUTODIFFERENTIAL Routine 2024 12:18 PM CDT BASIC METABOLIC PANEL Routine 01/05/2025 12:[address] CHEST ABDOMEN PELVIS W CONT Routine 12/29/2024 11:02 AM CDT from Last 3 Months Results * CBC WITH AUTODIFFERENTIAL (01/05/2025 12:18 PM CDT) Blood us Venkatesh Bolanos MD HEMATOLOGY ORDERABLES Final Res ult * BASIC METABOLIC PANEL (01/05/2025 12:17 PM CDT) Blood us Venkatesh Bolanos MD CHEMISTRY ORDERABLES Final Resu lt * CT CHEST ABDOMEN PELVIS W CONT (12/29/2024 11:02 AM CDT) Anatomical Region Laterality Modality Chest Computed Tomogra phy us Venkatesh Bolanos MD CT ORDERABLES Final Result from Last 3 Months Additional Health Concerns Infection Onset Date Last Indicated R/O C. diff 08/28/2024 08/28/2024 Insurance [facility] DUAL COMPLETE PPO DSNP [facility] [id number] Care Teams Procedures Tech Relationship Specialty Start Date End Date Jacki Cabrera MD PCP - General Internal Medicine 01/06/19
--- OUTSIDE RECORDS SUMMARY | 2025-01-25 01:54 | XMS_ITS | Clinical Summary ---
Author Organization [facility] Address [address] [place] [address] Care Team Providers Care Parachute Panel Joiner Name Role Phone Summer Green RN Unavailable [phone] Jacki Cabrera MD Primary Care Provider Source Comments [facility],non-owned Affiliates and Associated Physician Practices is amultiple site organization consisting of ambulatory clinics and hospital sitesin [place], [place], [place] and [place]. This disclosure is being madepursuant to the Care Everywhere program and may not contain all information available regarding this patient. 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 Not on file Not on file Last Filed Vital Signs Vital Sign Reading Time Taken Comments Blood Pressure 151/91 04/03/2021 11:22 AM MANAGER RENEWABLE ENERGY Pulse 116 04/03/2021 11:22 AM MANAGER RENEWABLE ENERGY Temperature 36.8 C (98.2 F) 03/22/2021 8:21 AM MANAGER RENEWABLE ENERGY Respiratory Rate 18 03/22/2021 8:21 AM MANAGER RENEWABLE ENERGY Oxygen Saturation 96% 04/03/2021 11:22 AM MANAGER RENEWABLE ENERGY Inhaled Oxygen Concentration 100% 05/28/2008 1 :51 PM MANAGER RENEWABLE ENERGY Weight 118.8 kg (262 lb) 04/03/2021 11:22 AM MANAGER RENEWABLE ENERGY Height 172.7 cm (5' 8) 04/03/2021 11:22 AM MANAGER RENEWABLE ENERGY Body Mass Index 39.84 04/03/2021 11:22 AM MANAGER RENEWABLE ENERGY Plan of Treatment Health Maintenance Due Date [...] DTAP/TDAP/TD VACCINES (2 - Tdap) 04/23/2012 04/23/2002 SCREENING FOR DIABETES 03/20/2024 , 03/19/2021, 03/19/2021, Additional history exists DEPRESSION SCREENING 05/06/2024 MEDICARE AW CALENDAR YEAR 2024 COVID-19 VACCINE (3 - season) 2025 04/03/2021, 08/15/2020 INFLUENZA VACCINE (#1) 2025 , 02/16/2020, 02/22/2019, [...] this topic Medical Devices Implanted Type Area Thimble Press Operator Device Identifier Shelf Expiration Date Model / Serial / Lot Elliott Bone Palacos Sgl 1 X 40 Implanted:Qt y: 2 on 11/03/2014 by Marcus Hernandez MD at [facility] Right: Knee [employer] 01/04/2018 [id number] / / [id number] Size 5 Right A/P 62mm, M/L 70mm Legion Hk Femoral Assembly Implanted:Qt y: 1 on 11/03/2014 by Marcus Hernandez MD at [facility] Right: Knee 02/03/2021 [id number] / / [id number] Elliott Bone Palacos R Implanted:Qt y: 2 on 11/03/2014 by Marcus Hernandez MD at [facility] Right: Knee [employer] 05/06/2019 [id number] / / [id number] Legion Hk Hinge Knee Tibial Baseplate Implanted:Qt y: 1 on 11/03/2014 by Marcus Hernandez MD at [facility] Right: Knee 01/04/2023 [id number] / / [id number] 18mm Montezuma And Sleeve Kit Implanted:Qt y: 1 on 11/03/2014 by Marcus Hernandez MD at [facility] Right: Knee 01/04/2022 [id number] / / [id number] Size 4-5 Right 18mm Locking Screw Included Legion Hk Guided Motion Articular Insert Implanted:Qt y: 1 on 11/03/2014 by Marcus Hernandez MD at [facility] Right: Knee 11/03/2020 [id number] / / [id number] Straight 14mm X 160mm Legion Pressfit Stem Implanted:Qt y: 1 on 11/03/2014 by Marcus Hernandez MD at [facility] Right: Knee 09/03/2024 [id number] / / [id number] 5mm Size 5 Legion Hk Implanted:Qt y: 1 on 11/03/2014 by Marcus Hernandez MD at [facility] Right: Knee 08/05/2023 [id number] / / [id number] Straight 18mm X 160mm Legion Pressfit Stem Implanted:Qt y: 1 on 11/03/2014 by Marcus Hernandez MD at [facility] Right: Knee 05/06/2024 [id number] / / [id number] 10mm Size 5 Legion Hk Implanted:Qt y: 1 on 11/03/2014 by Marcus Hernandez MD at [facility] Right: Knee 05/06/2023 [id number] / / [id number] Lead Nrstm 60cm Penta 3mm Pdl 16 nl - [id number] Implanted:Qt y: 1 on 03/16/2021 by William Hammonds MD at [facility] Spine Thoracic [employer] 09/23/2022 [id number] / [id number] / Slnt Dura Duraseal Pg Trilysine Amine 5 Implanted:Qt y: 1 on 03/16/2021 by William Hammonds MD at [facility] Spine Thoracic [employer] Joel [id number] / / [id number] Description:BRIE Cable Nrstm Multilead Trl - [id number] Implanted:Qt y: 1 on 03/16/2021 by William Hammonds MD at [facility] Spine Thoracic A[employer] Sp[employer] 11/02/2022 [id number] / [id number] / Description:BRIE Gntr Nrstm 1.95inx2.19i n Proclaim Elt - [id number] Implanted:Qt y: 1 on 03/16/2021 by William Hammonds MD at [facility] Spine Thoracic [employer] 02/14/2023 [id number] / [id number] / Description:BRIE Procedures Procedure Name Priority Date/Time Associated Diagnosis Comments BASIC METABOLIC PANEL (CALCIUM TOTAL) STAT 03/20/2021 2:53 AM MANAGER RENEWABLE ENERGY Acute midline thoracic back pain from Last 3 Months or Most Recently Relevant to Health Maintenance Results * (ABNORMAL) BASIC METABOLIC PANEL (CALCIUM TOTAL) (03/20/2021 2:53 AM [facility]) BUN 10 7 - 26 mg/dL 03/20/2021 [...] Unknown Venipuncture / Unknown 03/20/2021 2:53 AM MANAGER RENEWABLE ENERGY 03/20/2021 2:56 AM [facility] us Reji Heller MD LAB - CHEMISTRY ORDERABLE S Final Result [facility] [address] [place] [id number], [facility] [phone] from Last 3 Months or Most Recently [...] Subscriber ID:Not on file Address: [address] [place] [address] Payer ID:Not on file Group ID:Not on file Type:Self Pay Address: [facility] MANAGED MEDICARE ADV SELF PAY NO INSURANCE Member Subscriber Plan / Payer (Ef fective for All Dates) Name:Karolina Ramos Member ID:Not on file Relation to Subscriber:Not on file Name:KAROLINA RAMOS Subscriber ID:Not on file Address: [address] [place] [address] Payer ID:Not on file Group ID:Not on file Type:Self Pay Address: [facility] MANAGED MEDICARE ADV SELF PAY NO INSURANCE Member Subscriber Plan / Payer (Ef fective for All Dates) Name:Karolina Ramos Member ID:Not on file Relation to Subscriber:Not on file Name:KAROLINA RAMOS Subscriber ID:Not on file Address: [address] [place] [address] Payer ID:Not on file Group ID:Not on file Type:Self Pay Address: [facility] MANAGED MEDICARE ADV Advance Directives Documents on File Type Date Recorded Patient Assistance Representative Expl anation Adv Directive/Living Will/POA 11/08/2014 10:34 PM Adv Directive/Living Will/POA 11/03/2014 5:00 AM Power of Director Of Scientific Research 06/02/2008 9:23 AM Adv Directive/Living Will/POA 06/02/2008 [...] 12:49 PM 04/18/2008 1:25 AM Care Teams Parachute Panel Joiner Relationship Specialty Start Date End Date Jacki Cabrera MD PCP - General Internal Medicine 11/04/14 Summer Green, RN Butcher'S Assistant 11/03/14
--- OUTSIDE RECORDS SUMMARY | 2025-01-25 01:54 | XMS_ITS | Encounter Summary ---
Author Organization [facility] Address [address] [place] [address] Care Team Providers Care Ross Lift Operator Name Role Phone NormaFlynnSummer K RN Unavailable [phone] Jacki Cabrera MD Primary Care Provider Encounter Details Date Type Department Care Team (Late st Contact Info) Description 05/01/2023 Lab Requisition [facility] - Pathology Lab [address] [place] [id number] Vaughn Colunga MD [address] [address] Illness, unspecified Social History Tobacco [...] on file Legal Sex Female 4:48 AM PATIENT ACCOUNTS COORDINATOR Gender Identity Not on file Sexual Orientation Not on file 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 Answer Date of Assessment Author No 03/22/2021 4:29 PM PATIENT ACCOUNTS COORDINATOR Gustavo Floyd RN * Is person blind or have serious difficulty seeing? Answer Date of Assessment Author No 03/22/2021 4:29 PM PATIENT ACCOUNTS COORDINATOR Gustavo Floyd RN * Does person have serious difficulty walking/climbing stairs? Answer Date of Assessment Author No 03/22/2021 4:29 PM PATIENT ACCOUNTS COORDINATOR Gustavo Floyd RN * Does person have difficulty dressing/bathing? Answer Date of Assessment Author No 03/22/2021 4:29 PM Gustavo Samaniego RN * Does person have difficulty doing errands alone? Answer Date of Assessment Author No 03/22/2021 4:29 PM PATIENT ACCOUNTS COORDINATOR Gustavo Floyd RN documented as of this encounter Mental Status * Does person have difficulty concentrating/remembering/making decisions? Answer Entry Date Author No 03/22/2021 4:29 PM PATIENT ACCOUNTS COORDINATOR Gustavo Floyd RN documented in this encounter Plan of Treatment Not on file documented as of this encounter Procedures Procedure Name Priority Date/Time Associated Diagnosis Comments PATHOLOGY TISSUE Routine 04/26/2023 10:0 7 AM PATIENT ACCOUNTS COORDINATOR Illness, unspecified documented in this encounter Results * PATHOLOGY TISSUE (04/26/2023 10:07 AM PATIENT ACCOUNTS COORDINATOR) Case Report Surgical Pathology Report Case: [id number] Authorizing Provider: Luis Colunga MD Collected: 04/26/2023 10:07 AM Ordering Location: [facility] Pathology Lab Received: 05/01/2023 03:34 PM Pathologist: Chaya Walton MD Specimen: Slide Consultation, Lymph node 05/02/2023 10:40 AM [facility] Final Diagnosis Lymph node, left axilla, needle core biopsy: - Follicular lymphoma, as sampled - See description 05/02/2023 10:40 AM [facility] at 1040 PATIENT ACCOUNTS COORDINATOR Microscopic Description and Comment Sections demonstrate thin cores of lymphoid tissue with a vaguely nodular architecture. No germinal centers are present, but rather, the majority of cells are small and slightly cleaved/irregular. No necrosis or significant large cell infiltrate is present in the sampled tissue. To evaluate the immunoarchitecture, immunohistochemistry is performed at the [facility] Department of Pathology. The nodular areas consist of germinal center B-cells that express CD10, BCL-6, and CD20. These cells show aberrant co-expression of BCL-2. CD21 highlights that these cells are mostly localized in follicular dendritic cell meshworks. CD3 shows admixed small T-cells. Controls are appropriately reactive. Per report, flow cytometry ([facility], [address], [place], [address]) shows 8% JJ14-rwoovrnz monoclonal B-cells (lambda light chain-restricted). In summary, this sampling of the left axillary lymph node shows involvement by follicular lymphoma. Grading of follicular lymphoma is recommended to be performed on an excisional biopsy specimen. Clinical correlation is advised. 05/02/2023 10:40 AM [facility] Clinical History 68 year old woman with FDG avid left axillary lymph nodes. 05/02/2023 10:40 AM [facility] Materials Received Received are 3 slides and 1 block labeled [id number] along with a copy of the outside pathology report. [place] [address]. All original materials are returned to the referring institution, along with a copy of our final report. 05/02/2023 10:40 AM [facility] Pathologist Location at [facility] 05/02/2023 10:40 AM [facility] Disclaimer The performance characteristics of all immunohistochemical and indirect immunofluorescence stains (if any) cited in this report were determined by the Histopathology Laboratory of [facility]. Some of these tests were developed by [...] the attending (teaching) pathologist. 05/02/2023 10:40 AM PATIENT ACCOUNTS COORDINATOR [facility] PATH[facility] Embedded Images 05/02/2023 10:40 AM PATIENT ACCOUNTS COORDINATOR [facility] Pathology/Cytolo gy SURGICAL PATHOLOGY CONSULTATION AND REPORT ON REFERRED SLIDES PREPARED ELSEWHERE / Unknown 04/26/2023 10:07 AM PATIENT ACCOUNTS COORDINATOR 05/01/2023 3:34 PM PATIENT ACCOUNTS COORDINATOR Vaughn Colunga MD LAB - PATHOLOGY/CYT OLOGY ORDERABLES Final Result [facility] [address] [phone] documented in this encounter Visit Diagnoses Diagnosis Illness, unspecified documented in this encounter Additional Health Concerns Infection Onset Date Last Indicated Resolved Time MRSA Hx 03/16/2021 03/16/2021 documented as of this encounter Care Teams Ross Lift Operator Relationship Specialty Start Date End Date Jacki Cabrera MD PCP - General Internal Medicine 11/04/14 Summer Green RN Cna Pct 11/03/14 documented as of this encounter
--- OUTSIDE RECORDS SUMMARY | 2025-01-25 01:54 | XMS_ITS | Patient Health Record ---
Author Organization [facility] Address [address] [place] [address] Care Team Providers Care Tap Builder Name Role Phone Deborah BREEN, Jacki Primary Care Provider Un available Pamella Alonzo Unavailable [phone] Reason For Referral No Information Medications Medication [...] interaction check* 07/04/2015 Active Plan Of Treatment Next Appt Details Provider Name:Pamella motron, 01/29/2025 11:00:00 AM, [address] [place] [address], [place], [place], [id number], Insurance Providers Payer Name Payer Address Payer Phone Subscriber Number Group Number Insured Name Patient Relationship to Insured Coverage Start Date Coverage End Date [facility] [address] [place], [place] [id number] Karolina Ramos Self - patient is the insured [facility] [address] [address] [place] [address] [id number] Karolina Ramos Self - patient is the insured
--- OUTSIDE RECORDS SUMMARY | 2025-01-25 01:54 | XMS_ITS | Patient Health Record ---
Author Organization [facility] Address [address] [place] [address] Care Team Providers Care Boat Person Name Role Phone Deborah BREEN, Jacki Primary Care Provider Un available Rosita Smith Unavailable [phone] Allergies Allergen (clinical drug ingredient) Drug/Non Drug [...] BEFORE BEDTIME ONCE A DAY.; Duration: 30 01/07/2025 Active Ondansetron 8 MG Tablet Disintegrating Oral; [...] Covid-19 Vaccine Unknown 04/03/2021 Administere d Novel Uozpggqbv-B1S5-22, preservative free Unknown 01/23/2017 Administered Novel Xgxderhxs-T5H7-09, preservative free Unknown 02/22/2019 Administered Novel Dqngarjko-C9G2-22, preservative free Unknown 02/16/2020 Administered Pneumococcal polysaccharide [...] Risk Notes Problem Mild recurrent major depression (84034416) Major depressive disorder, recurrent, mild (F33.0) Active confirmed Problem Moderate recurrent major depression (36153017) Major depressive disorder, recurrent, moderate (F33.1) Active confirmed Problem Generalized anxiety disorder (81813794) Generalized anxiety disorder (F41.1) 4 Active confirmed Problem Primary insomnia (8183580) Primary insomnia (F51.01) 4 Active confirmed Problem Recurrent falls (598698138) Repeated falls (R29.6) Active confirmed Problem Essential hypertension (23311522) Benign essential HTN (I10) Active confirmed Vital Signs Heart Rate 102 /min 09/16/2024 Height-cm 172.72 cm 09/16/2024 Blood pressure diastolic 105 mm Hg 09/16/2024 Weight-kg 101.15 kg 09/16/2024 Height 68.00 in 09/16/2024 Blood pressure systolic 167 mm Hg 09/16/2024 Weight 223 lbs 09/16/2024 BMI 33.9 kg/m2 09/16/2024 Encounters Encounter Location Date Provider Diagnosis [facility] [address] [address] 03/25/2024 Rosita Smith Major depressive disorder, recurrent, mild F33.0 ; Generalized anxiety disorder F41.1 and Primary insomnia F51.01 [facility] [address] [address] 07/07/2024 Rosita Smith Generalized anxiety disorder F41.1 ; Major depressive disorder, recurrent, mild F33.0 ; Primary insomnia F51.01 ; Repeated falls R29.6 ; Benign essential HTN I10 and Nicotine use Z72.0 [facility] [email or web address] [address] [facility] [address] [address] 08/03/2024 Rosita Smith Generalized anxiety disorder F41.1 ; Major depressive disorder, recurrent, mild F33.0 ; Primary insomnia F51.01 ; Repeated falls R29.6 ; Nicotine use Z72.0 and Benign essential HTN I10 [facility] [place] [address] [facility] [address] [address] 09/16/2024 Rosita Smith Primary insomnia F51.01 ; Major depressive disorder, recurrent, moderate F33.1 ; Generalized anxiety disorder F41.1 ; Benign essential HTN I10 and Encounter for screening for depression Z13.31 [facility] [place] [address] [facility] [address] [address] 06/22/2024 [facility] [address] [place] [address] 07/29/2024 Rosita Smith Primary insomnia F51.01 [place] [address] [place] [address] 07/29/2024 Rosita Smith [facility] [address] [facility] [address] [place] [address] 01/07/2025 Rosita Smith [place] [address] [facility] [address] [place] [address] 07/07/2024 Rosita Smith Assessments Encounter Date Diagnosis (ICD Code) Assessment Notes Treatment Notes Treatment Clinical Notes Section Notes 09/16/2024 Primary insomnia (ICD-10 - F51.01) 07/07/2024 Generalized anxiety disorder (ICD-10 - F41.1) [...] overall well-being, sooner if concerns arise 08/03/2024 Generalized anxiety disorder (ICD-10 - F41.1) 07/29/2024 Primary insomnia (ICD-10 - F51.01) 03/25/2024 Major depressive disorder, recurrent, mild (ICD-10 [...] stability. - Call if any concerns arrise 09/16/2024 Major depressive disorder, recurrent, moderate (ICD-10 - F33.1) 09/16/2024 Generalized anxiety disorder (ICD-10 - F41.1) 03/25/2024 Generalized anxiety disorder (ICD-10 - F41.1) [...] - Call if any concerns arrise 08/03/2024 Primary insomnia (ICD-10 - F51.01) 07/07/2024 Primary insomnia (ICD-10 - F51.01) Risks [...] overall well-being, sooner if concerns arise 08/03/2024 Major depressive disorder, recurrent, mild (ICD-10 [...] and overall well-being, sooner if concerns arise 09/16/2024 Benign essential HTN (ICD-10 - I10) 07/07/2024 Repeated falls (ICD-10 - R29.6) Fall [...] (ICD-10 - R29.6) no falls reportedly recently 03/25/2024 Primary insomnia (ICD-10 - F51.01) Assessment [...] - Call if any concerns arrise 08/03/2024 Nicotine use (ICD-10 - Z72.0) 09/16/2024 Encounter for screening for depression (ICD-10 - Z13.31) 07/07/2024 Benign essential HTN (ICD-10 - I10) [...] Medicare Replacement/ Advantage - Hmo [address] [address] [place] [address] [id number] AHSAN HANEY Self - patient is the insured Medical (General) History Medical History History ICD Code Gastroesophageal reflux disease Generalized anxiety disorder History of total knee arthroplasty Hypertensive disorder Mild recurrent major depression Nicotine dependence Normal grief reaction Obesity Obstructive sleep apnea syndrome Primary insomnia Psoriasis Rheumatoid arthritis Smoker Surgical History Surgery Date(Month/Year) Breast surgery () Reconstructive surgery Other Any surgical history Hysterectomy (49784)
--- OUTSIDE RECORDS SUMMARY | 2025-01-25 01:54 | XMS_ITS | Patient Health Record ---
Author Organization [facility] Address [address] [address] Care Team Providers Care Medical Records Supervisor Name Role Phone krysta monahan Primary Care Provider Armaan Lawson Unavailable [phone] Allergies Allergen (clinical drug ingredient) Drug/Non Drug Allergy documented on EMR Reaction Allergy Type Onset Date Status metformin metFORMIN Stomach Upset Drug Allergy Act tee Penicillin Hives Drug Allergy Active Reason For Referral No Information Medications Medication SIG (Take, Route, Frequency, Duration) Notes Start Date End Date Status Lantus SoloStar 100 UNIT/ML 40 units subcutaneously QD; Duration: 90 days Active Methotrexate 5 TAB ORALLY ONCE A WEEK *Please review and pick correct strength-formulati on from [employer] options. If intended option is not shown, discontinue and re-order from Quick Search* Active Folic Acid 1 MG 1 tab(s) orally once a day Active Gabapentin 300 MG 1 cap(s) orally BID Active Lisinopril-hydroCHL OROthiazide 10-12.5 MG 1 tab(s) orally once a day Active Multivitamin - 1 cap(s) orally once a day Active Lantus SoloStar 100 UNIT/ML 40 units subcutaneously QD; Duration: 90 days 07/22/2015 Active Omeprazole 20 MG 1 cap(s) orally once a day Active traZODone HCl 100 MG 2 tab(s) orally QD Active Cymbalta 60 MG 1 cap(s) orally once a day Active B-12 1000 MCG 1 tab(s) orally once a day Active traZODone HCl 100 MG 1 tab(s) orally once a day (at bedtime) Active Vitamin B Complex VITAMIN B COMPLEX *Please review and pick correct strength-formulati on from [employer] CRMan options. If intended option is not shown, discontinue and re-order from Quick Search* Active Calcium *Please review a nd pick correct strength-formulati on from [employer]Man options. If intended option is not shown, discontinue and re-order from Quick Search* Active Problems Problem Type SNOMED Code ICD Code Onset Dates Problem Status W/U Status Risk Notes Problem Hyperglycemia due to type 2 diabetes mellitus (904656793439935) Type 2 diabetes mellitus with hyperglycemia (E11.65) Active confirmed Problem Mixed hyperlipidemia (759863943) Mixed hyperlipidemia (E78.2) Active confirmed Problem Polyneuropathy due to type 2 diabetes mellitus (564707758) Type 2 diabetes mellitus with diabetic polyneuropathy (E11.42) Active confirmed Problem Essential hypertension (08235275) Essential (primary) hypertension (I10) Active confirmed Problem Morbid obesity (disorder) (117359436) Morbid (severe) obesity due to excess calories (E66.01) Active confirmed Problem Dietary management surveillance (512629479) Dietary counseling and surveillance (Z71.3) Active confirmed Problem Long-term current use of insulin (093807132) FDC (current) use of insulin (Z79.4) Active confirmed Problem Insulin pump present (finding) (233182599) Insulin pump status (Z96.41) Active confirmed Problem Body mass index 40+ - morbidly obese (517060500) BMI 40.0-44.9, adult (Z68.41) Active confirmed Problem History of gastric bypass (729801917) S/P gastric bypass (Z98.84) Active confirmed Plan Of Treatment No Information Medical (General) History Medical History History ICD Code Hx of MRSA Psoriatic Arthritis Sleep Apnea DM Type 2 Depression HTN GERD Anxiety Over Active Bladder S/p Gastric Bypass July 2014 Surgical History Surgery Date(Month/Year) Tubal Ligation 1977 Partial Hysterectomy 1988 Left Bunionectomy 1993 Breast Reduction 1993 Left Knee Scope 1995 Rupture L4 and L5 1995 Right knee scope 1996 Right Ankle 1998 Right Ankle hardware removed 1999 Cyst and Ovaries removed 2003 Left knee replacement 2005 Right Bunionectomy 2006 Right knee replacement 2007 Right Knee repair 2008 Skin tag removal 2013 Right knee replacement 2014 Gastric Bypass 2014
[2025-01-25 10:30] VITALS: BP 170/91; PULSE 87; RESP 16; TEMP 36.4; O2SAT 99
[2025-01-25] MEDS: LACTATED RINGERS 1,000 ML 30 ML IV CONT (11:00)
[2025-01-25 11:07] VITALS: BMI 33.4
--- NOTE | 2025-01-25 11:26 | WPDANESEPPF ---
Anes - Initial Pre Proc Eval Procedure: Operation Date: 01/25/25 13:00 Proposed Procedures p Removal Tisha Cath - Jose De Jesus Figueroa MD Date/Time: 01/25/25 11:26 Surgeon: Jose De Jesus Figueroa MD Pre Op Diagnosis: port no longer needed Patient Data Age: 69 Gender: F Height: 1.73 m Weight: 99.8 kg Allergies Allergy/AdvReac Type Severity Reaction Status Date / Time Penicillins Allergy Intermediate Swelling Verified 01/25/25 10:45 of Lip/Tongue/Throat metformin AdvReac Severe Nausea and Verified 01/25/25 10:45 Vomiting zolpidem AdvReac Hallucinati Verified 01/25/25 10:45 ng Home Medications ?Medication ?Instructions ?Recorded ?Confirmed ?Type baclofen 10 mg tablet 10 mg PO TID PRN Muscle Spasm 11/03/19 01/14/25 History calcitriol 0.25 mcg capsule 0.5 mcg PO DAILY 11/03/19 01/14/25 History duloxetine 60 mg capsule,delayed 120 mg PO DAILY 11/03/19 01/14/25 History release folic acid 1 mg tablet 1 mg PO QAM 11/03/19 01/14/25 History gabapentin 600 mg tablet 600 mg PO TID 11/03/19 01/14/25 History lovastatin 20 mg tablet 20 mg PO HS 11/03/19 01/14/25 History methotrexate sodium 2.5 mg tablet 25 mg PO WEEKLY 11/03/19 01/14/25 History nystatin 100,000 unit/gram topical 1 applic topical BID PRN Rash 11/03/19 01/14/25 History powder (Nystop) prednisone 5 mg tablet 5 mg PO QAM 11/03/19 01/14/25 History ondansetron HCl 4 mg tablet 4 mg PO Q6H PRN nausea and 11/04/19 01/14/25 Rx (Zofran) vomiting #30 tabs cholecalciferol (vitamin D3) 1,250 1,250 mcg PO WEEKLY 05/30/23 01/14/25 History mcg (50,000 unit) capsule docusate sodium 100 mg capsule 100 mg PO DAILY PRN constipation 05/30/23 01/14/25 History (Colace) quetiapine 100 mg tablet 100 mg PO HS 05/30/23 01/14/25 History sulfasalazine 500 mg tablet 500 mg PO BID 05/30/23 01/14/25 History vortioxetine 10 mg tablet 10 mg PO HS 05/30/23 01/14/25 History (Trintellix) potassium chloride 20 mEq 20 meq PO BID 01/22/24 01/14/25 History tablet,extended release empagliflozin 10 mg tablet 10 mg PO DAILY 09/15/24 01/14/25 History (Jardiance) losartan 50 mg tablet (Cozaar) 50 mg PO DAILY 09/15/24 01/14/25 History eszopiclone 2 mg tablet 2 mg PO HS 01/14/25 01/14/25 History ferrous sulfate 325 mg (65 mg 325 mg PO DAILY 01/14/25 01/14/25 History iron) tablet (Cody-Time) guaifenesin 100 mg/5 mL oral 200 mg PO Q6H PRN cough 01/14/25 01/14/25 History liquid (Expectorant Cough Syrup) hydroxyzine HCl 25 mg tablet 25 mg PO BID PRN anxiety 01/14/25 01/14/25 History ixekizumab 80 mg/mL subcutaneous 80 mg subcut MONTHLY 01/14/25 01/14/25 History auto-injector (Taltz Autoinjector) omeprazole 40 mg capsule,delayed 40 mg PO DAILY 01/14/25 01/14/25 History release Laboratory Tests 01/25/25 10:35 POC Capillary Glucose 141 H mg/dl (65-105) Patient hx anesthesia problems: none Family hx anesthesia problems: none Results Review: All pre-operative results and documents have been reviewed as part of the pre-operative evaluation. [facility] Past Medical History Medical History Obstructive sleep apnea on CPAP Psoriatic arthritis Morbid obesity With 120 lb weight loss following gastric bypass surgery Psoriasis ERROL (obstructive sleep apnea) Depression GERD (gastroesophageal reflux disease) COPD (chronic obstructive pulmonary disease) Anxiety Hypertension Hyperlipidemia History of tobacco use Surgical History Surgical History Gastric bypass status for obesity 2016 History of bladder repair surgery History of bilateral breast reduction surgery Social History Social History Social History: Patient reported being a former smoker. However her Continine testing from 11/17/2019 was positive. Patient is at risk poor wound healing with continued tobacco use. Smoking packs per day: 0.75 Smoking cigarettes per day: 15.0 Years smoked: 30 Smoking pack-years: 22.50 Smoking status: Current every day smoker Tobacco type: cigarettes Second hand tobacco smoke exposure: No Additional smoking assessment comments: CURRENTLY SMOKING 1/2 PACK/DAY Substance use type: does not use Last use: 2018 Living arrangements: with family Additional living arrangements comments: SON LIVES WITH HER Gender identity (if verbalized by the patient): Female Spiritual care concerns: No Anes - Eval Final PreProcedure Day of Procedure 01/25/25 11:26 Patient weight: obese Heart: regular rate and rhythm Lungs: clear to auscultation Airway: Mallampati scale class II Neurological: alert and oriented Last oral intake: >/= 8 hours ASA classification: IV Emergent: no Anesthetic plan: proceed Anesthesia type and monitoring: general GIVS and standard monitoring Results Review: All pre-operative results and documents have been reviewed as part of the pre-operative evaluation. Informed Consent: The patient's anesthetic plan and its attendant risks and benefits were discussed with the patient/family/POA. Questions were solicited and answers provided to the satisfaction of the patient/family/POA.
--- NOTE | 2025-01-25 12:49 | PM.IMHP ---
H&P: HPI History of Present Illness Date/Time: 01/25/25 12:49 Chief Complaint: Follicular lymphoma, malfunctioning marlys catheter in place Narrative: Patient is a 69-year-old female who had follicular lymphoma. I placed a marlys catheter in the right subclavian vein in May 2023 for administration of chemotherapy. The last 4 times they have not been able to infuse through the port and she has had treatments administered via periperial IV. Her oncologist has asked that the port be removed and will ask for another port in the future if it is needed. Review of Systems Review of Systems: The remainder of the review of systems to include constitutional, HEENT, cardiovascular, respiratory, GI, , integumentary, musculoskeletal, endocrine, immunologic, hematologic, psychiatric, and neurologic are all negative except for which is mentioned above in the HPI. [facility] Past Medical History Medical History Obstructive sleep apnea on CPAP Psoriatic arthritis Morbid obesity With 120 lb weight loss following gastric bypass surgery Psoriasis ERROL (obstructive sleep apnea) Depression GERD (gastroesophageal reflux disease) COPD (chronic obstructive pulmonary disease) Anxiety Hypertension Hyperlipidemia History of tobacco use Surgical History Surgical History Gastric bypass status for obesity 2016 History of bladder repair surgery History of bilateral breast reduction surgery Social History Social History Social History: Patient reported being a former smoker. However her Continine testing from 11/17/2019 was positive. Patient is at risk poor wound healing with continued tobacco use. Smoking packs per day: 0.75 Smoking cigarettes per day: 15.0 Years smoked: 30 Smoking pack-years: 22.50 Smoking status: Current every day smoker Tobacco type: cigarettes Second hand tobacco smoke exposure: No Additional smoking assessment comments: CURRENTLY SMOKING 1/2 PACK/DAY Substance use type: does not use Last use: 2018 Living arrangements: with family Additional living arrangements comments: SON LIVES WITH HER Gender identity (if verbalized by the patient): Female Spiritual care concerns: No Meds Home Medications and Allergies Home Medications ?Medication ?Instructions ?Recorded ?Confirmed ?Type baclofen 10 mg tablet 10 mg PO TID PRN Muscle Spasm 11/03/19 01/14/25 History calcitriol 0.25 mcg capsule 0.5 mcg PO DAILY 11/03/19 01/14/25 History duloxetine 60 mg capsule,delayed 120 mg PO DAILY 11/03/19 01/14/25 History release folic acid 1 mg tablet 1 mg PO QAM 11/03/19 01/14/25 History gabapentin 600 mg tablet 600 mg PO TID 11/03/19 01/14/25 History lovastatin 20 mg tablet 20 mg PO HS 11/03/19 01/14/25 History methotrexate sodium 2.5 mg tablet 25 mg PO WEEKLY 11/03/19 01/14/25 History nystatin 100,000 unit/gram topical 1 applic topical BID PRN Rash 11/03/19 01/14/25 History powder (Nystop) prednisone 5 mg tablet 5 mg PO QAM 11/03/19 01/14/25 History ondansetron HCl 4 mg tablet 4 mg PO Q6H PRN nausea and 11/04/19 01/14/25 Rx (Zofran) vomiting #30 tabs cholecalciferol (vitamin D3) 1,250 1,250 mcg PO WEEKLY 05/30/23 01/14/25 History mcg (50,000 unit) capsule docusate sodium 100 mg capsule 100 mg PO DAILY PRN constipation 05/30/23 01/14/25 History (Colace) quetiapine 100 mg tablet 100 mg PO HS 05/30/23 01/14/25 History sulfasalazine 500 mg tablet 500 mg PO BID 05/30/23 01/14/25 History vortioxetine 10 mg tablet 10 mg PO HS 05/30/23 01/14/25 History (Trintellix) potassium chloride 20 mEq 20 meq PO BID 01/22/24 01/14/25 History tablet,extended release empagliflozin 10 mg tablet 10 mg PO DAILY 09/15/24 01/14/25 History (Jardiance) losartan 50 mg tablet (Cozaar) 50 mg PO DAILY 09/15/24 01/14/25 History eszopiclone 2 mg tablet 2 mg PO HS 01/14/25 01/14/25 History ferrous sulfate 325 mg (65 mg 325 mg PO DAILY 01/14/25 01/14/25 History iron) tablet (Cody-Time) guaifenesin 100 mg/5 mL oral 200 mg PO Q6H PRN cough 01/14/25 01/14/25 History liquid (Expectorant Cough Syrup) hydroxyzine HCl 25 mg tablet 25 mg PO BID PRN anxiety 01/14/25 01/14/25 History ixekizumab 80 mg/mL subcutaneous 80 mg subcut MONTHLY 01/14/25 01/14/25 History auto-injector (Taltz Autoinjector) omeprazole 40 mg capsule,delayed 40 mg PO DAILY 01/14/25 01/14/25 History release Allergies Allergy/AdvReac Type Severity Reaction Status Date / Time Penicillins Allergy Intermediate Swelling Verified 01/25/25 10:45 of Lip/Tongue/Throat metformin AdvReac Severe Nausea and Verified 01/25/25 10:45 Vomiting zolpidem AdvReac Hallucinati Verified 01/25/25 10:45 ng Vital Signs Vital Signs - 24 hr 01/25/25 10:30 Temperature 36.4 C L Pulse Rate 87 Respiratory Rate 16 Blood Pressure 170/91 H Pulse Oximetry 99 Oxygen Delivery Room Air Exam Const: General: comfortable and no acute distress HENMT: Ears: TM's normal bilaterally Face/Nose/Sinus: Normal nares present Mouth: Yes moist mucous membranes Eyes: General: appearance normal, both eyes and all related structures Sclera: sclerae normal Pupils: Equal, round and reactive pupils present EOM: EOMs intact bilaterally Neck: Neck: supple and no JVD Chest: Other: Right upper anterior chest port in place. Well-healed scar. No redness or tenderness around the subcutaneous port. Resp: Effort & Inspection: normal respiratory effort Auscultation: clear to auscultation bilaterally Cardio: Rate: regular rate Rhythm: regular rhythm GI: GI Palp: Yes Soft to palpation, No Firmness to palpation present (GI), No Tenderness to palpation present (GI), No Guarding due to palpation present (GI) and No Hernia present Skin: General skin exam: normal color and no rashes or lesions noted Neuro: General: gait normal Speech: normal speech Motor exam (neuro): 5/5 motor strength present throughout Sensory Exam: normal sensation Extrem: General: normal to inspection Psych: Mental Status: mental status grossly normal Affect: normal affect Assessment and Plan Assessment and plan (1) Follicular lymphoma: Code(s): C82.90 - Follicular lymphoma, unspecified, unspecified site Status: Acute Assessment and Plan: Patient is now getting her chemo tx via periperial IV since her port is not infusing now. Her oncologist feels she can get her treatments without need for another port placement right now. (2) Port-A-Cath in place: Code(s): Z95.828 - Presence of other vascular implants and grafts Status: Acute Assessment and Plan: Will plan on removing the marlys catheter in the operating today under IV sedation.
--- NOTE | 2025-01-25 13:00 | WPDHPUPDATE1 ---
History and Physical Update Update Date/Time: 01/25/25 13:00 History and Physical has been reviewed, including an updated exam of the patient. There are NO changes in the patient's condition. Risks, benefits, and alternatives have been discussed and questions answered. Patient agrees to proceed with procedure.
[2025-01-25] MEDS: ceFAZolin 2 GM in SODIUM CHLORIDE 0.9% IV 50 ML 100 ML IVPB (13:01)
[2025-01-25] MEDS: LIDO 1%/EPINEPHRINE 1:100,000 20 ML VIAL 10 ML INFILTRATE (13:16)
--- NOTE | 2025-01-25 13:33 | W.PM.PROC2 ---
Procedure Note - Detailed Date of Procedure 01/25/25 Pre-op Diagnosis Malfunctioning marlys catheter, follicular lymphoma Post-op Diagnosis Same Procedure Performed Removal malfunctioning right subclavian vein marlys catheter Surgeon Jose De Jesus Figueroa MD Labor Expediter Yosvany Luz SA Anesthesia MAC and Local Indications Patient is a 69-year-old female who has follicular lymphoma. I placed a marlys catheter in May 2023 for chemotherapy treatments. Apparent less 4 times a tried to use the catheter it would not infuse. She then got her treatments via peripheral IV. Her oncologist has requested her bowel function a port be removed. At this time he is not requested placement of a new marlys catheter. Findings None significant Description of Procedure After informed consent was obtained patient brought to the operating room she was placed supine position and then IV sedation was administered by anesthesia. The right upper anterior neck and chest was then prepped and draped usual sterile fashion. A time-out was then performed correctly identifying the patient as well as procedure to be performed. She was given perioperative IV antibiotics. The port was easily palpable in the right upper anterior chest and subcutaneous tissues. 1% lidocaine mixed with 0.5% Marcaine 50 50 mixture some epinephrine was injected around the port and underneath the old scar. A scalp was then used to excise out the old scar and then dissection was used to dissect down through the subcu tissue electrocautery into the hub to the port was encountered. I then carefully dissected around hub of the port with electrocautery until the proximal catheter was free. I then with gentle traction on the catheter removed from the right subclavian vein. The tip appeared to be intact. Pressure was then held the area the right subclavian vein to achieve hemostasis. I then completely excised out the port from the surrounding subcutaneous tissues in the port pocket with electrocautery. The port was then discarded. I then fulgurated the fibrous port capsule in the subcutaneous tissues with electrocautery. Hemostasis was good but I went ahead and ligated the fibrous tract going to the right subclavian vein. A 3-0 Vicryl suture was used to suture ligate the tract. I then injected additional local anesthetic mixture around the incision. The incision was then closed utilizing multiple layers of interrupted 3-0 Vicryl sutures in the subcutaneous tissues. The skin edges were approximated utilizing a running subcuticular 4 Monocryl suture. The incision was then cleaned the skin glue was applied. The patient tolerated the procedure well no complications. All sponges, needles, and instrument counts were correct at the end procedure. EBL was __5_cc. The patient was awakened and taken to recovery in stable and satisfactory condition. Implants None Estimated Blood Loss 5 Drains No Packing No Pathology None sent Complications No immediate complications Condition Stable Disposition PACU [facility] Billing Surgery - Charge Forward: Surgery Billing
[2025-01-25 13:35] VITALS: BP 114/55; PULSE 66; RESP 14; O2SAT 100
[2025-01-25 14:03] VITALS: BP 151/68; PULSE 78; RESP 14
[2025-01-25 14:14] VITALS: BP 151/68; PULSE 78; RESP 14
== END 2025-01-25 14:18 | disposition home or self-care (01) ==
PROVIDERS: PCP Internal Medicine; Visit Provider Surgery
PROC: (CPT 36589; principal; 2025-01-25 13:00)
DX: Z45.2 Encounter for adjustment and management of vascular access device (principal); C82.90 Follicular lymphoma, unspecified, unspecified site; E78.5 Hyperlipidemia, unspecified; I10 Essential (primary) hypertension; K21.9 Gastro-esophageal reflux disease without esophagitis; J44.9 Chronic obstructive pulmonary disease, unspecified; G47.33 Obstructive sleep apnea (adult) (pediatric); F32.A Depression, unspecified; F41.9 Anxiety disorder, unspecified; L40.50 Arthropathic psoriasis, unspecified; L40.9 Psoriasis, unspecified; F17.210 Nicotine dependence, cigarettes, uncomplicated; E66.9 Obesity, unspecified; Z68.33 Body mass index [BMI] 33.0-33.9, adult; Z79.52 Long term (current) use of systemic steroids; Z79.84 Long term (current) use of oral hypoglycemic drugs; Z79.620 Long term (current) use of immunosuppressive biologic; Z99.89 Dependence on other enabling machines and devices; Z98.890 Other specified postprocedural states; Z98.84 Bariatric surgery status; Z95.828 Presence of other vascular implants and grafts; Z92.21 Personal history of antineoplastic chemotherapy
CPT/HCPCS: 36590; 82948; J0690; J2003; J2004; J2405; J2704; J3010; J7120

== ENCOUNTER 2025-03-23 02:03 | Day surgery (SDC) | payer MEDICARE, MEDICAID, SELFPAY ==
[2025-03-16 09:18] VITALS: BMI 31.8
--- OUTSIDE RECORDS SUMMARY | 2025-03-23 03:12 | XMS_ITS | Encounter Summary ---
Author Organization [facility] Address [address] [place] [address] Care Team Providers Care Instructor Painting Name Role Phone NormaFlynnSummer K RN Unavailable [phone] Jacki Cabrera MD Primary Care Provider Encounter Details Date Type Department Care Team (Late st Contact Info) Description 05/01/2023 Lab Requisition [facility] - Pathology Lab [address] [place] [id number] Vaughn Colunga MD [address] [address] Illness, unspecified Social History Tobacco [...] on file Legal Sex Female 4:48 AM [employer] Gender Identity Not on file Sexual Orientation Not on file 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 Answer Date of Assessment Author No 03/22/2021 4:29 PM [employer] Gustavo Floyd RN * Is person blind or have serious difficulty seeing? Answer Date of Assessment Author No 03/22/2021 4:29 PM [employer] Gustavo Floyd RN * Does person have serious difficulty walking/climbing stairs? Answer Date of Assessment Author No 03/22/2021 4:29 PM [employer] Gustavo Floyd RN * Does person have difficulty dressing/bathing? Answer Date of Assessment Author No 03/22/2021 4:29 PM Gustavo Samaniego RN * Does person have difficulty doing errands alone? Answer Date of Assessment Author No 03/22/2021 4:29 PM [employer] Gustavo Floyd RN documented as of this encounter Mental Status * Does person have difficulty concentrating/remembering/making decisions? Answer Entry Date Author No 03/22/2021 4:29 PM [employer] Gustavo Floyd RN documented in this encounter Plan of Treatment Not on file documented as of this encounter Procedures Procedure Name Priority Date/Time Associated Diagnosis Comments PATHOLOGY TISSUE Routine 04/26/2023 10:0 7 AM [employer] Illness, unspecified documented in this encounter Results * PATHOLOGY TISSUE (04/26/2023 10:07 AM [employer]) Case Report Surgical Pathology Report Case: [id number] Authorizing Provider: Luis Colunga MD Collected: 04/26/2023 10:07 AM Ordering Location: [facility] Pathology Lab Received: 05/01/2023 03:34 PM Pathologist: Chaya Walton MD Specimen: Slide Consultation, Lymph node 05/02/2023 10:40 AM [facility]Y LAB Final Diagnosis Lymph node, left axilla, needle core biopsy: - Follicular lymphoma, as sampled - See description 05/02/2023 10:40 AM [facility] LAB at [address] [employer] Microscopic Description and Comment Sections demonstrate thin cores of lymphoid tissue with a vaguely nodular architecture. No germinal centers are present, but rather, the majority of cells are small and slightly cleaved/irregular. No necrosis or significant large cell infiltrate is present in the sampled tissue. To evaluate the immunoarchitecture, immunohistochemistry is performed at the [facility] Department of Pathology. The nodular areas consist of germinal center B-cells that express CD10, BCL-6, and CD20. These cells show aberrant co-expression of BCL-2. CD21 highlights that these cells are mostly localized in follicular dendritic cell meshworks. CD3 shows admixed small T-cells. Controls are appropriately reactive. Per report, flow cytometry ([employer], [address], [place], [address]) shows 8% [id number] monoclonal B-cells (lambda light chain-restricted). In summary, this sampling of the left axillary lymph node shows involvement by follicular lymphoma. Grading of follicular lymphoma is recommended to be performed on an excisional biopsy specimen. Clinical correlation is advised. 05/02/2023 10:40 AM [facility] Clinical History 68 year old woman with FDG avid left axillary lymph nodes. 05/02/2023 10:40 AM [facility] Materials Received Received are 3 slides and 1 block labeled [id number] along with a copy of the outside pathology report. The materials [place] [address]. All original materials are returned to the referring institution, along with a copy of our final report. 05/02/2023 10:40 AM [facility] Pathologist Location at [facility] 05/02/2023 10:40 AM [facility] Disclaimer The performance characteristics of all immunohistochemical and indirect immunofluorescence stains (if any) cited in this report were determined by the Histopathology Laboratory of [facility]. Some of these tests were developed by [...] the attending (teaching) pathologist. 05/02/2023 10:40 AM [employer] [facility] LAB Embedded Images 05/02/2023 10:40 AM [employer] [facility] LAB Pathology/Cytolo gy SURGICAL PATHOLOGY CONSULTATION AND REPORT ON REFERRED SLIDES PREPARED ELSEWHERE / Unknown 04/26/2023 10:07 AM [employer] 05/01/2023 3:34 PM [employer] Vaughn Colunga MD LAB - PATHOLOGY/CYT OLOGY ORDERABLES Final Result [facility] [address] [phone] documented in this encounter Visit Diagnoses Diagnosis Illness, unspecified documented in this encounter Additional Health Concerns Infection Onset Date Last Indicated Resolved Time MRSA Hx 03/16/2021 03/16/2021 documented as of this encounter Care Teams Instructor Painting Relationship Specialty Start Date End Date Jacki Cabrera MD PCP - General Internal Medicine 11/04/14 Summer Green RN Account Manager Education 11/03/14 documented as of this encounter
--- OUTSIDE RECORDS SUMMARY | 2025-03-23 03:12 | XMS_ITS | Clinical Summary ---
Author Organization [facility] [employer] Address [address] [place] [address] Care Team Providers Care Vehicle Calibration Engineer Name Role Phone Summer Green RN Unavailable [phone] Jacki Cabrera MD Primary Care Provider Source Comments [facility] [employer],non-owned Affiliates and Associated Physician Practices is amultiple site organization consisting of ambulatory clinics and hospital sitesin [place], [place], [place] and [place]. This disclosure is being madepursuant to the Care Everywhere program and may not contain all information available regarding this patient. 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 Not on file Not on file Last Filed Vital Signs Vital Sign Reading Time Taken Comments Blood Pressure 151/91 04/03/2021 11:22 AM UPHOLSTERY SEWER Pulse 116 04/03/2021 11:22 AM UPHOLSTERY SEWER Temperature 36.8 C (98.2 F) 03/22/2021 8:21 AM UPHOLSTERY SEWER Respiratory Rate 18 03/22/2021 8:21 AM UPHOLSTERY SEWER Oxygen Saturation 96% 04/03/2021 11:22 AM UPHOLSTERY SEWER Inhaled Oxygen Concentration 100% 05/28/2008 1 :51 PM UPHOLSTERY SEWER Weight 118.8 kg (262 lb) 04/03/2021 11:22 AM UPHOLSTERY SEWER Height 172.7 cm (5' 8) 04/03/2021 11:22 AM UPHOLSTERY SEWER Body Mass Index 39.84 04/03/2021 11:22 AM UPHOLSTERY SEWER Plan of Treatment Health Maintenance Due Date [...] - Risk 60-74 years 1-dose series) 2017 SCREENING FOR DIABETES 03/20/2024 , 03/19/2021, 03/19/2021, Additional history exists DEPRESSION SCREENING 05/06/2024 MEDICARE AWV CALENDAR YEAR 2024 COVID-19 VACCINE ( season) 2025 04/03/2021, 08/15/2020 INFLUENZA VACCINE (#1) 2025 , 02/16/2020, 02/22/2019, Additional history exists HEPATITIS B VACCINE Aged Out No longe [...] this topic Medical Devices Implanted Type Area Tax Appraiser Device Identifier Shelf Expiration Date Model / Serial / Lot Elliott Bone Palacos Sgl 1 X 40 Implanted:Qt y: 2 on 11/03/2014 by Marcus Hernandez MD at [facility] Right: Knee [employer] 01/04/2018 [id number] / / [id number] Size 5 Right A/P 62mm, M/L 70mm Legion Hk Femoral Assembly Implanted:Qt y: 1 on 11/03/2014 by Marcus Hernandez MD at [facility] Right: Knee 02/03/2021 [id number] / / [id number] Elliott Bone Palacos R Implanted:Qt y: 2 on 11/03/2014 by Marcus Hernandez MD at [facility] Right: Knee [employer] 05/06/2019 [id number] / / [id number] Legion Hk Hinge Knee Tibial Baseplate Implanted:Qt y: 1 on 11/03/2014 by Marcus Hernandez MD at [facility] Right: Knee 01/04/2023 [id number] / / [id number] 18mm [place] And Sleeve Kit Implanted:Qt y: 1 on 11/03/2014 by Marcus Hernandez MD at [facility] Right: Knee 01/04/2022 [id number] / / [id number] Size 4-5 Right 18mm Locking Screw Included Legion Hk Guided Motion Articular Insert Implanted:Qt y: 1 on 11/03/2014 by Marcus Hernandez MD at [facility] Right: Knee 11/03/2020 [id number] / / [id number] Straight 14mm X 160mm Legion Pressfit Stem Implanted:Qt y: 1 on 11/03/2014 by Marcus Hernandez MD at [facility] Right: Knee 09/03/2024 [id number] / / [id number] 5mm Size 5 Legion Hk Implanted:Qt y: 1 on 11/03/2014 by Marcus Hernandez MD at [facility] Right: Knee 08/05/2023 [id number] / / [id number] Straight 18mm X 160mm Legion Pressfit Stem Implanted:Qt y: 1 on 11/03/2014 by Marcus Hernandez MD at [facility] Right: Knee 05/06/2024 [id number] / / [id number] 10mm Size 5 Legion Hk Implanted:Qt y: 1 on 11/03/2014 by Marcus Hernandez MD at [facility] Right: Knee 05/06/2023 [id number] / / [id number] Lead Nrstm 60cm Penta 3mm Pdl 16 nl - [id number] Implanted:Qt y: 1 on 03/16/2021 by William Hammonds MD at [facility] Spine Thoracic Advanced [employer] 09/23/2022 [id number] / [id number] / Slnt Dura Duraseal Pg Trilysine Amine 5 Implanted:Qt y: 1 on 03/16/2021 by William Hammonds MD at [facility] Spine Thoracic [employer] Joel [id number] / / [id number] Description:BRIE Cable Nrstm Multilead Trl - [id number] Implanted:Qt y: 1 on 03/16/2021 by William Hammonds MD at [facility] Spine Thoracic Abreu Spine 11/02/2022 [id number] / [id number] / Description:BRIE Gntr Nrstm 1.95inx2.19i n Proclaim Elt - [id number] Implanted:Qt y: 1 on 03/16/2021 by William Hammonds MD at [facility] Spine Thoracic [employer] 02/14/2023 [id number] / [id number] / Description:BRIE Procedures Procedure Name Priority Date/Time Associated Diagnosis Comments BASIC METABOLIC PANEL (CALCIUM TOTAL) STAT 03/20/2021 2:53 AM UPHOLSTERY SEWER Acute midline thoracic back pain from Last 3 Months or Most Recently Relevant to Health Maintenance Results * (ABNORMAL) BASIC METABOLIC PANEL (CALCIUM TOTAL) (03/20/2021 2:53 AM [facility]) BUN 10 7 - 26 mg/dL 03/20/2021 3:21 AM [facility] Creatinine 0.65 0.56 - 0.96 mg/dL 03/20/2021 3:21 AM [facility] Sodium 142 136 - 145 mmol/L 03/20/2021 3:21 AM [facility] Potassium 3.9 3.5 - 4.5 mmol/L 03/20/2021 3:21 AM [facility] Chloride 104 98 - 107 mmol/L 03/20/2021 3:21 AM [facility] CO2 28 22 - 29 mmol/L 03/20/2021 3:21 AM [facility] Glucose 153(H) 70 - 115 mg/dL 03/20/2021 3:21 AM [facility] Calcium 10.9(H) 8.4 - 10.2 mg/dL 03/20/2021 3:21 AM [facility] Anion Gap 14 8 - 18 03/20/2021 3:21 AM [facility] BUN/Creatinine Ratio 15 7 - 23 03/20/2021 3:21 AM [facility] Osmolality Calculated 296 270 - 300 mOsm/kg 03/20/2021 3:21 AM [facility] eGFR by CKD-EPI >90 >=90 mL/min/1.7 3 m2 03/20/2021 3:21 AM [facility] Blood BLOOD SPECIMEN / Unknown Venipuncture / Unknown 03/20/2021 2:53 AM UPHOLSTERY SEWER 03/20/2021 2:56 AM [facility] us Reji Heller MD LAB - CHEMISTRY ORDERABLE S Final Result [facility] [address] [place] [address], [facility] [phone] from Last 3 Months or Most Recently [...] Subscriber ID:Not on file Address: [address] [place] [address] Payer ID:Not on file Group ID:Not on file Type:Self Pay Address: [facility] MANAGED MEDICARE ADV SELF PAY NO INSURANCE Member Subscriber Plan / Payer (Ef fective for All Dates) Name:Karolina Ramos Member ID:Not on file Relation to Subscriber:Not on file Name:KAROLINA RAMOS Subscriber ID:Not on file Address: [address] [place] [address] Payer ID:Not on file Group ID:Not on file Type:Self Pay Address: [facility] MANAGED MEDICARE ADV SELF PAY NO INSURANCE Member Subscriber Plan / Payer (Ef fective for All Dates) Name:Karolina Ramos Member ID:Not on file Relation to Subscriber:Not on file Name:KAROLINA RAMOS Subscriber ID:Not on file Address: [address] [place] [address] Payer ID:Not on file Group ID:Not on file Type:Self Pay Address: [facility] MANAGED MEDICARE ADV Advance Directives Documents on File Type Date Recorded Patient Hotel Assistant General Manager Expl anation Adv Directive/Living Will/POA 11/08/2014 10:34 PM Adv Directive/Living Will/POA 11/03/2014 5:00 AM Power of Net Developer Programmer 06/02/2008 9:23 AM Adv Directive/Living Will/POA 06/02/2008 [...] 12:49 PM 04/18/2008 1:25 AM Care Teams Vehicle Calibration Engineer Relationship Specialty Start Date End Date Jacki Cabrera MD PCP - General Internal Medicine 11/04/14 Summer Green, RN Optimization Analyst 11/03/14
[2025-03-23 08:45] VITALS: BP 172/86; PULSE 68; RESP 18; TEMP 36.1; O2SAT 97; BMI 33.0
[2025-03-23] MEDS: LACTATED RINGERS 1,000 ML 150 ML IV CONT (09:10)
--- NOTE | 2025-03-23 09:48 | WPDANESEPPF ---
Anes - Initial Pre Proc Eval Procedure: Operation Date: 03/23/25 09:45 Proposed Procedures p Esophagogastroduodenoscopy - Matias Le MD Date/Time: 03/23/25 09:48 Surgeon: Matias Le MD Pre Op Diagnosis: Dysphagia, unspecified Patient Data Age: 70 Gender: F Height: 1.73 m Weight: 98.4 kg Last Vital Signs Temp 96.9 F L 03/23/25 08:45 Pulse 68 03/23/25 08:45 Resp 18 03/23/25 08:45 BP 172/86 H 03/23/25 08:45 Pulse Ox 97 03/23/25 08:45 O2 Del Method Room Air 03/23/25 08:45 Allergies Allergy/AdvReac Type Severity Reaction Status Date / Time Penicillins Allergy Intermediate Swelling Verified 03/23/25 08:53 of Lip/Tongue/Throat metformin AdvReac Severe Nausea and Verified 03/23/25 08:53 Vomiting zolpidem AdvReac Hallucinati Verified 03/23/25 08:53 ng Home Medications ?Medication ?Instructions ?Recorded ?Confirmed ?Type baclofen 10 mg tablet 10 mg PO TID PRN Muscle Spasm 11/03/19 03/16/25 History calcitriol 0.25 mcg capsule 0.5 mcg PO DAILY 11/03/19 03/23/25 History duloxetine 60 mg capsule,delayed 120 mg PO DAILY 11/03/19 03/23/25 History release folic acid 1 mg tablet 1 mg PO QAM 11/03/19 03/23/25 History gabapentin 600 mg tablet 600 mg PO TID 11/03/19 03/23/25 History lovastatin 20 mg tablet 20 mg PO HS 11/03/19 03/16/25 History methotrexate sodium 2.5 mg tablet 25 mg PO WEEKLY 11/03/19 03/23/25 History nystatin 100,000 unit/gram topical 1 applic topical BID PRN Rash 11/03/19 03/16/25 History powder (Nystop) prednisone 5 mg tablet 5 mg PO QAM 11/03/19 03/23/25 History ondansetron HCl 4 mg tablet 4 mg PO Q6H PRN nausea and 11/04/19 03/16/25 Rx (Zofran) vomiting #30 tabs cholecalciferol (vitamin D3) 1,250 1,250 mcg PO WEEKLY 05/30/23 03/23/25 History mcg (50,000 unit) capsule docusate sodium 100 mg capsule 100 mg PO DAILY PRN constipation 05/30/23 03/16/25 History (Colace) quetiapine 100 mg tablet 100 mg PO HS 05/30/23 03/23/25 History sulfasalazine 500 mg tablet 500 mg PO BID 05/30/23 03/16/25 History vortioxetine 10 mg tablet 10 mg PO HS 05/30/23 03/23/25 History (Trintellix) potassium chloride 20 mEq 20 meq PO BID 01/22/24 03/23/25 History tablet,extended release empagliflozin 10 mg tablet 10 mg PO DAILY 09/15/24 03/23/25 History (Jardiance) losartan 50 mg tablet (Cozaar) 50 mg PO DAILY 09/15/24 03/23/25 History eszopiclone 2 mg tablet 2 mg PO HS 01/14/25 03/23/25 History ferrous sulfate 325 mg (65 mg 325 mg PO DAILY 01/14/25 03/23/25 History iron) tablet (Cody-Time) hydroxyzine HCl 25 mg tablet 25 mg PO BID PRN anxiety 01/14/25 03/16/25 History ixekizumab 80 mg/mL subcutaneous 80 mg subcut MONTHLY 01/14/25 03/16/25 History auto-injector (Taltz Autoinjector) omeprazole 40 mg capsule,delayed 40 mg PO DAILY 01/14/25 03/23/25 History release prednisone 5 mg tablet 5 mg PO DAILY 03/16/25 03/23/25 History Laboratory Tests 03/23/25 09:04 POC Capillary Glucose 144 H mg/dl (65-105) Patient hx anesthesia problems: none Family hx anesthesia problems: none Results Review: All pre-operative results and documents have been reviewed as part of the pre-operative evaluation. [facility] Past Medical History Medical History Obstructive sleep apnea on CPAP Psoriatic arthritis Morbid obesity With 120 lb weight loss following gastric bypass surgery Psoriasis ERROL (obstructive sleep apnea) Depression GERD (gastroesophageal reflux disease) COPD (chronic obstructive pulmonary disease) Anxiety Hypertension Hyperlipidemia History of tobacco use Surgical History Surgical History Gastric bypass status for obesity 2016 History of bladder repair surgery History of bilateral breast reduction surgery Social History Social History Social History: Patient reported being a former smoker. However her Continine testing from 11/17/2019 was positive. Patient is at risk poor wound healing with continued tobacco use. Smoking packs per day: 0.5 Smoking cigarettes per day: 10.0 Years smoked: 35 Smoking pack-years: 17.50 Smoking status: Current every day smoker Tobacco type: cigarettes Second hand tobacco smoke exposure: No Additional smoking assessment comments: CURRENTLY SMOKING 1/2 PACK/DAY Alcohol intake: never Substance use: never Substance use type: does not use Last use: 2018 Living arrangements: with family Additional living arrangements comments: SON LIVES WITH HER Gender identity (if verbalized by the patient): Female Spiritual care concerns: No Anes - Eval Final PreProcedure Day of Procedure 03/23/25 09:48 Patient weight: obese Lungs: normal air movement Airway: Mallampati scale class II and special considerations (Edentulous. ) Neurological: alert and oriented Last oral intake: >/= 8 hours ASA classification: IV Emergent: no Anesthetic plan: proceed Anesthesia type and monitoring: general GIVS and standard monitoring Results Review: All pre-operative results and documents have been reviewed as part of the pre-operative evaluation. Complicated pt, COPD and still smokes 1/2 ppd, hx of follicular lymphoma, DM 2, ERROL but not on CPAP since wt loss, HTN, hyperlipidemia. Pt now w dysphagia. Informed Consent: The patient's anesthetic plan and its attendant risks and benefits were discussed with the patient/family/POA. Questions were solicited and answers provided to the satisfaction of the patient/family/POA.
--- NOTE | 2025-03-23 09:53 | PM.HPGS ---
History of Present Illness History of Present Illness Consent: Risks, benefits, and alternatives have been discussed and questions answered. Patient agrees to proceed with procedure. Chief complaint: Dysphagia, unspecified Narrative: Karolina Ramos is a 70 year old female here with dysphagia, will do egd Review of Systems Review of Systems: All systems reviewed & are unremarkable except as noted in HPI and below PMFSH Past Medical History Medical History Dysphagia Obstructive sleep apnea on CPAP Psoriatic arthritis Morbid obesity With 120 lb weight loss following gastric bypass surgery Psoriasis ERROL (obstructive sleep apnea) Depression GERD (gastroesophageal reflux disease) COPD (chronic obstructive pulmonary disease) Anxiety Hypertension Hyperlipidemia History of tobacco use Surgical History Surgical History Gastric bypass status for obesity 2015 History of bladder repair surgery History of bilateral breast reduction surgery Social History Social History Social History: Patient reported being a former smoker. However her Continine testing from 11/17/2019 was positive. Patient is at risk poor wound healing with continued tobacco use. Smoking packs per day: 0.5 Smoking cigarettes per day: 10.0 Years smoked: 35 Smoking pack-years: 17.50 Smoking status: Current every day smoker Tobacco type: cigarettes Second hand tobacco smoke exposure: No Additional smoking assessment comments: CURRENTLY SMOKING 1/2 PACK/DAY Alcohol intake: never Substance use: never Substance use type: does not use Last use: 2018 Living arrangements: with family Additional living arrangements comments: SON LIVES WITH HER Gender identity (if verbalized by the patient): Female Spiritual care concerns: No Meds Home Medications and Allergies Home Medications ?Medication ?Instructions ?Recorded ?Confirmed ?Type baclofen 10 mg tablet 10 mg PO TID PRN Muscle Spasm 11/03/19 03/16/25 History calcitriol 0.25 mcg capsule 0.5 mcg PO DAILY 11/03/19 03/23/25 History duloxetine 60 mg capsule,delayed 120 mg PO DAILY 11/03/19 03/23/25 History release folic acid 1 mg tablet 1 mg PO QAM 11/03/19 03/23/25 History gabapentin 600 mg tablet 600 mg PO TID 11/03/19 03/23/25 History lovastatin 20 mg tablet 20 mg PO HS 11/03/19 03/16/25 History methotrexate sodium 2.5 mg tablet 25 mg PO WEEKLY 11/03/19 03/23/25 History nystatin 100,000 unit/gram topical 1 applic topical BID PRN Rash 11/03/19 03/16/25 History powder (Nystop) prednisone 5 mg tablet 5 mg PO QAM 11/03/19 03/23/25 History ondansetron HCl 4 mg tablet 4 mg PO Q6H PRN nausea and 11/04/19 03/16/25 Rx (Zofran) vomiting #30 tabs cholecalciferol (vitamin D3) 1,250 1,250 mcg PO WEEKLY 05/30/23 03/23/25 History mcg (50,000 unit) capsule docusate sodium 100 mg capsule 100 mg PO DAILY PRN constipation 05/30/23 03/16/25 History (Colace) quetiapine 100 mg tablet 100 mg PO HS 05/30/23 03/23/25 History sulfasalazine 500 mg tablet 500 mg PO BID 05/30/23 03/16/25 History vortioxetine 10 mg tablet 10 mg PO HS 05/30/23 03/23/25 History (Trintellix) potassium chloride 20 mEq 20 meq PO BID 01/22/24 03/23/25 History tablet,extended release empagliflozin 10 mg tablet 10 mg PO DAILY 09/15/24 03/23/25 History (Jardiance) losartan 50 mg tablet (Cozaar) 50 mg PO DAILY 09/15/24 03/23/25 History eszopiclone 2 mg tablet 2 mg PO HS 01/14/25 03/23/25 History ferrous sulfate 325 mg (65 mg 325 mg PO DAILY 01/14/25 03/23/25 History iron) tablet (Cody-Time) hydroxyzine HCl 25 mg tablet 25 mg PO BID PRN anxiety 01/14/25 03/16/25 History ixekizumab 80 mg/mL subcutaneous 80 mg subcut MONTHLY 01/14/25 03/16/25 History auto-injector (Taltz Autoinjector) omeprazole 40 mg capsule,delayed 40 mg PO DAILY 01/14/25 03/23/25 History release prednisone 5 mg tablet 5 mg PO DAILY 03/16/25 03/23/25 History Allergies Allergy/AdvReac Type Severity Reaction Status Date / Time Penicillins Allergy Intermediate Swelling Verified 03/23/25 08:53 of Lip/Tongue/Throat metformin AdvReac Severe Nausea and Verified 03/23/25 08:53 Vomiting zolpidem AdvReac Hallucinati Verified 03/23/25 08:53 ng Vital Signs Vital Signs - 24 hr 03/23/25 08:45 Temperature 96.9 F L Pulse Rate 68 Respiratory Rate 18 Blood Pressure 172/86 H Pulse Oximetry 97 Oxygen Delivery Room Air Exam Const: General: comfortable and no acute distress HENMT: Face/Nose/Sinus: Normal nares present Eyes: General: appearance normal, both eyes and all related structures Resp: Auscultation: clear to auscultation bilaterally Cardio: Rate: regular rate Rhythm: regular rhythm GI: Inspection: non-distended GI Palp: Yes Soft to palpation Skin: General skin exam: normal color Extrem: General: normal to inspection Psych: Mental Status: mental status grossly normal Assessment and Plan Assessment and plan (1) Dysphagia: Code(s): R13.10 - Dysphagia, unspecified Status: Acute Assessment and Plan: egd (2) History of gastric bypass: Code(s): Z98.84 - Bariatric surgery status Status: Acute
[2025-03-23] MEDS: BENZOCAINE (*SP) 60 ML SPRAY CAN (HURRICAINE) 1 SPRAY MUCOUS MEM (09:57)
--- NOTE | 2025-03-23 10:06 | S_PTH ---
PATIENT: Karolina Ramos LOC: [facility]#:[id number] AGE/SX: 70/F ROOM: RE03/23/[address]: Matias Le MD : 1955 BED: DIS: 03/23/2025 SPEC #: [id number] RECD: 03/23/25 10:19 STATUS: LEIF REAlicia #: [id number] XENA: 03/23/25 10:[address]: Matias Le DEPT: [facility] Surgical RECD BY: Edouard Smalls ENTERED: 03/23/25 10:20 SP TYPE: Surgical OTHR DR: Jacki CabreraMD Tissues: A - Gastric Biopsy B - Esophageal Biopsy Procedures: Hematoxylin and Eosin Stain Gross and Microscopic Level 4
[2025-03-23 10:09] VITALS: BP 137/82; PULSE 56; RESP 18; O2SAT 95
[2025-03-23 10:19] VITALS: BP 161/91; PULSE 54; RESP 18; O2SAT 99
[2025-03-23 10:29] VITALS: BP 158/92; PULSE 56; RESP 18; O2SAT 97
== END 2025-03-23 10:38 | disposition home or self-care (01) ==
PROVIDERS: PCP Internal Medicine; Referring Provider Internal Medicine Hematology & Oncology; Visit Provider Internal Medicine Gastroenterology
PROC: 0DJ08ZZ Inspection of Upper Intestinal Tract, Via Natural or Artificial Opening Endoscopic (ICD-10-PCS; CPT 43239; principal; 2025-03-23 09:45)
DX: K21.00 Gastro-esophageal reflux disease with esophagitis, without bleeding (principal); R13.10 Dysphagia, unspecified; Z98.84 Bariatric surgery status; F17.210 Nicotine dependence, cigarettes, uncomplicated; E66.9 Obesity, unspecified; Z68.33 Body mass index [BMI] 33.0-33.9, adult; Z79.84 Long term (current) use of oral hypoglycemic drugs
CPT/HCPCS: 43239; 82948; 88305; J2003; J2704; J7120